=== PATIENT | female | born 1945 | race Caucasian/White ===

== ENCOUNTER → 2016-10-12 | Outpatient (CLI) | payer MEDICARE, OTHER ==
[2016-10-17 13:58] LABS: Alternaria alternata IgE <0.35 kU/L (<0.35); Asperg. fumagatus IgE <0.35 kU/L (<0.35); Asperg. fumagatus IgE Class CLASS 0; Cat Epith & Dander IgE <0.35 kU/L (<0.35); Cat Epith & Dander IgE Class CLASS 0; Clad herbarum IgE <0.35 kU/L (<0.35); Clad herbarum IgE Class CLASS 0; Com. Pigweed IgE 1.05 kU/L (<0.35); Com. Pigweed IgE Class CLASS II; Common Ragweed IgE Class CLASS II; Cow's Milk IgE Class CLASS 0; Dermato. farinae IgE 1.12 kU/L (<0.35); Dermato. farinae IgE Class CLASS II; House Dust (Greer) IgE 0.37 kU/L (<0.35); House Dust (Greer) IgE Class CLASS I; Maple (Box Elder) IgE 1.15 kU/L (<0.35); Maple (Box Elder) IgE Class CLASS II; Penicillium notatum IgE Class CLASS 0; Timothy Grass IgE 1.67 kU/L (<0.35); Timothy Grass IgE Class CLASS II
== END | disposition home or self-care (01) ==
LOC: LABWHC1 13:36
PROVIDERS: ATTEND Internal Medicine Sleep Medicine
DX: J45.909 Unspecified asthma, uncomplicated (principal); B44.9 Aspergillosis, unspecified
CPT/HCPCS: 36415; 82785; 86001; 86003; 86606; 86609

== ENCOUNTER 2016-11-21 16:37 | Inpatient (IN) | payer MEDICARE, OTHER ==
[2016-11-21] MEDS ORDERED: MAGNESIUM SULFATE-D5W PMX 1 GM in DEXTROSE/WATER 1 100ML.BAG IVPB STA (16:45)
[2016-11-21] MEDS ORDERED: DILTIAZEM 125 MG in SODIUM CHLORIDE 0.9% 100 ML IV ONE (16:47)
--- NOTE | 2016-11-21 16:52 | ED ---
SOB HPI - General Stated Complaint: NIGHAT Time Seen by Provider: 11/21/16 16:37 Source: patient, EMS, RN notes reviewed Mode of arrival: EMS - History of Present Illness Initial Comments: This is a 71-year-old female with a history of COPD who recently was put on oxygen 1 L/m who had the onset this morning around 10 AM he stated that a cough with phlegm that she states it started about 24 hours ago. She has some substernal chest pain 67/10 she was given aspirin nitroglycerin slight Medrol and albuterol and route by EMS she is feeling somewhat better. She also was noted to be in atrial fibrillation with a rapid ventricular response. She denies any fevers chills or sweats. MD Complaint: shortness of breath, cough, chest pain - Related Data Home Medications Medication Instructions Recorded Confirmed Albuterol Nebulized [Ventolin 2.5 mg INHALATION RT-Q4H PRN 06/28/16 11/21/16 Nebulized] Atorvastatin [Lipitor] 20 mg PO DAILY 06/28/16 11/21/16 Diltiazem Cd [Cardizem CD] 180 mg PO DAILY 06/28/16 11/21/16 Ergocalciferol (Vitamin D2) 50,000 unit PO JOINER 06/28/16 11/21/16 [Drisdol] Ferrous Sulfate [Iron (65 MG 325 mg PO TID 06/28/16 11/21/16 Elemental)] Fluticasone/Salmeterol [Advair 1 puff INHALATION RT-BID PRN 06/28/16 11/21/16 500-50 Diskus] Losartan [Cozaar] 50 mg PO DAILY 06/28/16 11/21/16 [place]-3 Acid Ethyl Esters [Lovaza] 1 gm PO DAILY 06/28/16 11/21/16 Omeprazole [PriLOSEC] 20 mg PO DAILY 06/28/16 11/21/16 Prochlorperazine [Compazine] 10 mg PO TID PRN 06/28/16 11/21/16 Solifenacin Succinate [Vesicare] 10 mg PO DAILY 06/28/16 11/21/16 Tiotropium 18 Mcg/Puff [Spiriva] 1 cap INHALATION RT-DAILY PRN 06/28/16 11/21/16 diphenhydrAMINE HCL [Benadryl] 25 - 50 mg PO Q6H PRN 06/28/16 11/21/16 metFORMIN HCL [Glucophage] 500 mg PO BID 06/28/16 11/21/16 Aspirin [Adult Low Dose Aspirin EC] 81 mg PO DAILY 11/21/16 11/21/16 Celecoxib [CeleBREX] 100 mg PO DAILY 11/21/16 11/21/16 Docusate Sodium [Dok] 100 mg PO BID 11/21/16 11/21/16 Allergies Allergy/AdvReac Type Severity Reaction Status Date / Time ciprofloxacin [From Cipro] Allergy Rash/Hives Verified 11/21/16 17:10 kiwi Allergy Rash/Hives Verified 11/21/16 17:10 Review of Systems ROS Statement: Those systems with pertinent positive or pertinent negative responses have been documented in the HPI. ROS Other: All systems not noted in ROS Statement are negative. Past Medical History Past Medical History: Atrial Fibrillation, Coronary Artery Disease (CAD), Cancer , COPD, Diabetes Mellitus, Eye Disorder, GERD/Reflux, Hypertension, Myocardial Infarction ([place]), Pneumonia, Sleep Apnea/CPAP/BIPAP Additional Past Medical History / Comment(s): DYSPHAGIA, [place] x3 with 2 stents. skin cancer to neck and right cheek removed. RT EYE MACULAR DEGENERATION MINIMAL VISION Last Myocardial Infarction Date:: 2009 History of Any Multi-Drug Resistant Organisms: None Reported Past Surgical History: Back Surgery, Bladder Surgery, Heart Catheterization With Stent, Hysterectomy Additional Past Surgical History / Comment(s): right hand carpal tunnel release. Past Anesthesia/Blood Transfusion Reactions: No Reported Reaction Date of Last Stent Placement:: 2009 Past Psychological History: Anxiety, Depression Smoking Status: Current every day smoker Past Alcohol Use History: None Reported Additional Past Alcohol Use History / Comment(s): TRYING TO QUIT, DOWN TO 4 CIGARETTES DAILY FROM 2PPD. STARTED SMOKING A TEEN Past Drug Use History: None Reported - Past Family History Mother Family Medical History: Cancer Additional Family Medical History / Comment(s): lung Brother(s) Family Medical History: Cancer Additional Family Medical History / Comment(s): lung Father Family Medical History: Congestive Heart Failure (CHF) General Exam - General Exam Comments Initial Comments: This is a well-developed well-nourished awake alert oriented x3 female General appearance: alert, anxious Head exam: Present: atraumatic, normocephalic, normal inspection Eye exam: Present: normal appearance, PERRL, EOMI. Absent: scleral icterus, conjunctival injection, periorbital swelling ENT exam: Present: normal exam, mucous membranes moist Neck exam: Present: normal inspection. Absent: tenderness, meningismus, lymphadenopathy Respiratory exam: Present: wheezes, chest wall tenderness (Some reproducible tenderness palpation along the lower sternal costal margin and xiphoid), decreased breath sounds. Absent: respiratory distress, rales, rhonchi, stridor Cardiovascular Exam: Present: tachycardia, irregular rhythm. Absent: systolic murmur, diastolic murmur, rubs, gallop, clicks GI/Abdominal exam: Present: soft, normal bowel sounds. Absent: distended, tenderness, guarding, rebound, rigid Extremities exam: Present: normal inspection, full ROM, normal capillary refill. Absent: tenderness, pedal edema, joint swelling, calf tenderness Back exam: Present: normal inspection Neurological exam: Present: alert, oriented X3, CN II-XII intact Psychiatric exam: Present: normal affect, normal mood Skin exam: Present: warm, dry, intact, normal color. Absent: rash Course Vital Signs 11/21/16 11/21/16 11/21/16 16:39 17:45 17:46 Temperature 100.5 F H Pulse Rate 114 H 155 H Pulse Rate [ 155 H Business Relationship Manager ] Respiratory 26 H 20 Rate Blood Pressure 135/77 114/53 O2 Sat by Pulse 96 95 Oximetry 11/21/16 18:18 Temperature 100.4 F H Pulse Rate 124 H Pulse Rate [ Business Relationship Manager ] Respiratory 20 Rate Blood Pressure 118/84 O2 Sat by Pulse 98 Oximetry - Reevaluation(s) Reevaluation #1: 11/21/16 18:37 Is feeling somewhat improved I did discuss the findings with her. Medical Decision Making - Medical Decision Making I did discuss findings with the patient also with Dr. Mcdonald. Patient be admitted she'll be placed on IV antibiotics IV fluids COPD treatment. - Lab Data Result diagrams: 11/21/16 17:00 11/21/16 17:00 Lab Results 11/21/16 11/21/16 11/21/16 Range/Units 17:00 17:00 17:00 WBC 28.0 H* (3.8-10.6) k/uL RBC 4.56 (3.80-5.40) m/uL Hgb 13.8 (11.4-16.0) gm/dL Hct 41.9 (34.0-46.0) % MCV 91.8 (80.0-100.0) fL MCH 30.2 (25.0-35.0) pg MCHC 32.9 (31.0-37.0) g/dL RDW 13.0 (11.5-15.5) % Plt Count 280 (150-450) k/uL Neutrophils % (Manual) 86.0 % Band Neutrophils % 2.5 % Lymphocytes % (Manual) 9.0 % Monocytes % (Manual) 1.5 % Eosinophils % (Manual) 0.5 % Basophils % (Manual) 0.5 % Neutrophils # (Manual) 24.8 H (1.3-7.7) k/uL Lymphocytes # (Manual) 2.5 (1.0-4.8) k/uL Monocytes # (Manual) 0.4 (0-1.0) k/uL Eosinophils # (Manual) 0.1 (0-0.7) k/uL Basophils # (Manual) 0.1 (0-0.2) k/uL Nucleated RBCs 0 (0-0) /100 WBC Manual Slide Review Performed Sodium 135 L (137-145) mmol/L Potassium 4.0 (3.5-5.1) mmol/L Chloride 98 (98-107) mmol/L Carbon Dioxide 24 (22-30) mmol/L Anion Gap 13 mmol/L BUN 15 (7-17) mg/dL Creatinine 0.46 L (0.52-1.04) mg/dL Est GFR (MDRD) Af Amer >60 (>60 ml/min/1.73 sqM) Est GFR (MDRD) Non-Af >60 (>60 ml/min/1.73 sqM) Glucose 157 H (74-99) mg/dL Calcium 9.4 (8.4-10.2) mg/dL Magnesium 1.6 (1.6-2.3) mg/dL Total Bilirubin 0.6 (0.2-1.3) mg/dL AST 21 (14-36) U/L ALT 37 (9-52) U/L Alkaline Phosphatase 87 (38-126) U/L Total Creatine Kinase 40 (30-135) U/L CK-MB (CK-2) 0.9 (0.0-2.4) ng/mL CK-MB (CK-2) Rel Index 2.3 Troponin I 0.043 H* (0.000-0.034) ng/mL NT-Pro-B Natriuret Pep pg/mL Total Protein 6.2 L (6.3-8.2) g/dL Albumin 3.4 L (3.5-5.0) g/dL 11/21/16 Range/Units 17:00 WBC (3.8-10.6) k/uL RBC (3.80-5.40) m/uL Hgb (11.4-16.0) gm/dL Hct (34.0-46.0) % MCV (80.0-100.0) fL MCH (25.0-35.0) pg MCHC (31.0-37.0) g/dL RDW (11.5-15.5) % Plt Count (150-450) k/uL Neutrophils % (Manual) % Band Neutrophils % % Lymphocytes % (Manual) % Monocytes % (Manual) % Eosinophils % (Manual) % Basophils % (Manual) % Neutrophils # (Manual) (1.3-7.7) k/uL Lymphocytes # (Manual) (1.0-4.8) k/uL Monocytes # (Manual) (0-1.0) k/uL Eosinophils # (Manual) (0-0.7) k/uL Basophils # (Manual) (0-0.2) k/uL Nucleated RBCs (0-0) /100 WBC Manual Slide Review Sodium (137-145) mmol/L Potassium (3.5-5.1) mmol/L Chloride (98-107) mmol/L Carbon Dioxide (22-30) mmol/L Anion Gap mmol/L BUN (7-17) mg/dL Creatinine (0.52-1.04) mg/dL Est GFR (MDRD) Af Amer (>60 ml/min/1.73 sqM) Est GFR (MDRD) Non-Af (>60 ml/min/1.73 sqM) Glucose (74-99) mg/dL Calcium (8.4-10.2) mg/dL Magnesium (1.6-2.3) mg/dL Total Bilirubin (0.2-1.3) mg/dL AST (14-36) U/L ALT (9-52) U/L Alkaline Phosphatase (38-126) U/L Total Creatine Kinase (30-135) U/L CK-MB (CK-2) (0.0-2.4) ng/mL CK-MB (CK-2) Rel Index Troponin I (0.000-0.034) ng/mL NT-Pro-B Natriuret Pep 891 pg/mL Total Protein (6.3-8.2) g/dL Albumin (3.5-5.0) g/dL - EKG Data -: EKG Interpreted by Me (EKG showed a atrial fibrillation rhythm rate was 73. Interval 160 QRS dura) - Radiology Data Radiology results: report reviewed (3 shows evidence of left lower lobe infiltrate.), image reviewed Critical Care Time Critical Care Time: Yes Critical Care Time: 37 minutes of critical care time which includes initial EMS evaluation with monitoring her radio call and discussed with paramedics history physical lab and x-ray evaluation the patient. Response to therapy treatment reevaluation. Discussion with the patient discussed with the patient's attending physician. Admission orders and documentation the above. Disposition Clinical Impression: Left lower lobe pneumonia, Acute exacerbation of chronic obstructive airways disease, Rapid atrial fibrillation, Febrile illness, acute Disposition: ADMITTED IP TO THIS HOSP Condition: Stable Referrals: Chuy Soliman MD [Primary Care Provider] - 1-2 days
[2016-11-21 17:19] LABS: CH 30.8; CHCM 33.7; HCT 41.9 % (34.0-46.0); HDW 2.41; HGB 13.8 gm/dL (11.4-16.0); Immature Gran Flag Slight; MCH 30.2 pg (25.0-35.0); MCHC 32.9 g/dL (31.0-37.0); MCV 91.8 fL (80.0-100.0); RBC 4.56 m/uL (3.80-5.40); WBC (Perox) 28.05
[2016-11-21 17:35] LABS: ALT 37 U/L (9-52); AST 21 U/L (14-36); Add Differential Manual Differential; Alkaline Phosphatase 87 U/L (38-126); Anion Gap 13 mmol/L; Blood Urea Nitrogen 15 mg/dL (7-17); Calcium 9.4 mg/dL (8.4-10.2); Carbon Dioxide 24 mmol/L (22-30); Chloride 98 mmol/L (98-107); Glucose 157 mg/dL (74-99); Magnesium 1.6 mg/dL (1.6-2.3); Non-African American GFR(MDRD) >60 (>60 ml/min/1.73 sqM); Sodium 135 mmol/L (137-145); Total Bilirubin 0.6 mg/dL (0.2-1.3); Total Protein 6.2 g/dL (6.3-8.2)
[2016-11-21 17:38] LABS: Band Neutrophils % 2.5 %; Manual Review Performed; Nucleated Red Blood Cells 0 /100 WBC (0-0); Total Cells Counted 200
--- NOTE | 2016-11-21 17:53 | XR ---
EXAMINATION TYPE: XR chest 2V DATE OF EXAM: 11/21/2016 5:40 PM COMPARISON: 08/05/2016 HISTORY: Chest pain TECHNIQUE: Frontal and lateral views of the chest are obtained. FINDINGS: There is some patchy consolidation in the lingula left upper lobe. The right lung is clear . There is no heart failure. Heart size is normal. There are no hilar masses. There are chest leads. IMPRESSION: There is lingula pneumonic consolidation consistent with pneumonia that is new compared to old chest x-ray. No heart failure.
[2016-11-21 18:02] LABS: Creatine Kinase MB 0.9 ng/mL (0.0-2.4)
[2016-11-21 18:05] LABS: Troponin I 0.043 ng/mL (0.000-0.034)
[2016-11-21] MEDS ORDERED: SODIUM CHLORIDE 0.9% 1,000 ML IV STA (18:06)
[2016-11-21 18:39] LABS: Partial Thromboplastin Time 52.4 sec (22.0-30.0); Prothrombin Time 123.6 sec (9.0-12.0)
[2016-11-21] MEDS ORDERED: AZITHROMYCIN 500 MG in SODIUM CHLORIDE 0.9% 250 ML IVPB STA (18:40)
[2016-11-21] MEDS ORDERED: PNEUMONIA PROTOCOL UTILIZED 1 EACH MISC PO PRN (18:40)
[2016-11-21] MEDS ORDERED: PROCHLORPERAZINE 10 MG TAB PO PRN (18:42)
[2016-11-21] MEDS ORDERED: TIOTROPIUM 18 MCG/PUFF INHALER INHALATION PRN (18:42)
[2016-11-21] MEDS ORDERED: MAGNESIUM SULFATE-D5W PMX 1 GM in DEXTROSE/WATER 1 100ML.BAG IVPB ONE (18:45)
[2016-11-21] MEDS: SODIUM CHLORIDE 0.9% 1,000 ML IV SCH (18:57)
[2016-11-21 19:08] LABS: INR >10.0 (<1.1)
[2016-11-21 19:40] LABS: Hemoglobin A1C 7.2 % (4.2-6.1)
[2016-11-21 20:51] LABS: Glucose,Whole Blood 426 mg/dL (75-99)
[2016-11-21] MEDS ORDERED: INSULIN LISPRO (humaLOG) 300 UNIT/3 ML VIAL SQ SCH (21:00)
[2016-11-21] MEDS ORDERED: metFORMIN 500 MG TAB PO SCH (21:00)
[2016-11-21 21:06] LABS: Glucose,Whole Blood 421 mg/dL (75-99)
[2016-11-21] MEDS: PHYTONADIONE ORAL 5 MG/5 ML ORAL.SYRG PO SCH (21:13)
[2016-11-21] MEDS: DOCUSATE 100 MG CAP PO SCH (21:14)
[2016-11-21] MEDS: FERROUS SULFATE 325 MG TAB PO SCH (21:14)
[2016-11-21] MEDS: traZODone HCL 50 MG TAB PO SCH (21:19)
[2016-11-21] MEDS: IPRATROPIUM-ALBUTEROL 3 ML NEB INHALATION SCH ×2 (21:36→23:23)
[2016-11-21] MEDS ORDERED: INSULIN REGULAR BOLUS (FROM DRIP BAG) IV PRN (21:41)
[2016-11-21] MEDS ORDERED: NALOXONE 0.4 MG/ML 1 ML VIAL IV PRN (21:54)
[2016-11-21 22:21] LABS: Glucose,Whole Blood 398 mg/dL (75-99)
[2016-11-21] MEDS: INSULIN REGULAR 100 UNIT in SODIUM CHLORIDE 0.9% 100 ML IV SCH (22:21)
[2016-11-21 22:53] LABS: Glucose,Whole Blood 330 mg/dL (75-99)
[2016-11-21 23:20] LABS: Glucose,Whole Blood 242 mg/dL (75-99)
[2016-11-21] MEDS: methylPREDNISolone SOD SUCCI 125 MG/2 ML VIAL IV SCH (23:39)
[2016-11-21 23:46] LABS: Glucose,Whole Blood 211 mg/dL (75-99)
[2016-11-22 01:03] LABS: Glucose,Whole Blood 133 mg/dL (75-99)
[2016-11-22 01:48] LABS: Hemoglobin A1C 7.2 % (4.2-6.1)
[2016-11-22 02:15] LABS: Glucose,Whole Blood 157 mg/dL (75-99)
[2016-11-22 03:18] LABS: Glucose,Whole Blood 265 mg/dL (75-99)
[2016-11-22] MEDS: IPRATROPIUM-ALBUTEROL 3 ML NEB INHALATION SCH ×3 (03:30→07:35)
[2016-11-22 03:32] LABS: Appearance,Urine Clear (Clear); Bilirubin,Urine Negative (Negative); Glucose,Urine (UA) 4+ (Negative); Ketones,Urine Negative (Negative); Leukocyte Esterase,Urine Negative (Negative); Nitrite,Urine Negative (Negative); Particle Count 659; Protein,Urine Negative (Negative); RBC,Urine <1 /hpf (0-5); Specific Gravity,Urine 1.009 (1.001-1.035); Squamous Epithelial Cell,Urine <1 /hpf (0-4); UA Billing (MACRO vs. MICRO) MICRO; Urobilinogen,Urine <2.0 mg/dL (<2.0); WBC,Urine 1 /hpf (0-5)
[2016-11-22 04:15] LABS: Glucose,Whole Blood 269 mg/dL (75-99)
[2016-11-22 04:38] LABS: Basophils % (A) 0 %; CH 30.8; CHCM 32.2; Eosinophils % (A) 0 %; HCT 39.1 % (34.0-46.0); HDW 2.33; HGB 12.6 gm/dL (11.4-16.0); Luc # (Auto) 0.06; Luc % (Auto) 0; Lymphocytes # (A) 0.6 k/uL (1.0-4.8); Lymphocytes % (A) 2 %; MCH 30.9 pg (25.0-35.0); MCHC 32.1 g/dL (31.0-37.0); MCV 96.1 fL (80.0-100.0); Mean Platelet Volume 7.6; Monocytes # (A) 0.4 k/uL (0-1.0); Monocytes % (A) 1 %; Neutrophils # (A) 27.7 k/uL (1.3-7.7); Neutrophils % (A) 96 %; RBC 4.07 m/uL (3.80-5.40); RDW 12.8 % (11.5-15.5); WBC (Perox) 30.94
[2016-11-22 04:47] LABS: WBC 28.9 k/uL (3.8-10.6)
[2016-11-22 04:57] LABS: Anion Gap 11 mmol/L; Blood Urea Nitrogen 18 mg/dL (7-17); Calcium 8.8 mg/dL (8.4-10.2); Carbon Dioxide 21 mmol/L (22-30); Chloride 103 mmol/L (98-107); Glucose 226 mg/dL (74-99); Magnesium 2.2 mg/dL (1.6-2.3); Non-African American GFR(MDRD) >60 (>60 ml/min/1.73 sqM); Phosphorous 3.1 mg/dL (2.5-4.5); Potassium 4.2 mmol/L (3.5-5.1); Sodium 135 mmol/L (137-145)
[2016-11-22 05:02] LABS: Partial Thromboplastin Time 54.7 sec (22.0-30.0)
[2016-11-22] MEDS: methylPREDNISolone SOD SUCCI 125 MG/2 ML VIAL IV SCH ×3 (05:12→18:35)
[2016-11-22 05:14] LABS: Glucose,Whole Blood 180 mg/dL (75-99)
[2016-11-22 05:16] LABS: INR 6.5 (<1.1)
[2016-11-22 06:09] LABS: Glucose,Whole Blood 159 mg/dL (75-99)
[2016-11-22 07:11] LABS: Glucose,Whole Blood 204 mg/dL (75-99)
--- NOTE | 2016-11-22 07:30 | XR ---
EXAMINATION TYPE: XR chest 1V DATE OF EXAM: 11/22/2016 6:39 AM HISTORY: Difficulty breathing. REFERENCE: Previous study dated 11/21/2016. FINDINGS: There continues to be a lingular infiltrate, unchanged from previous. There is developing s ome right basilar airspace disease. Heart size is obscured. No definite pleural fluid is seen. IMPRESSION: 1. CONTINUING LEFT LINGULAR AIRSPACE DISEASE. 2. DEVELOPING RIGHT BASILAR AIRSPACE DISEASE.
[2016-11-22] MEDS ORDERED: LEVALBUTEROL NEB (CONC) 1.25 MG/0.5 ML AMP INHALATION STA (07:35)
[2016-11-22] MEDS ORDERED: IPRATROPIUM 0.5 MG/2.5 ML NEBU INHALATION STA (07:35)
[2016-11-22 07:58] LABS: Glucose,Whole Blood 227 mg/dL (75-99)
[2016-11-22] MEDS ORDERED: ASPIRIN 81 MG CHEW PO SCH (09:00)
[2016-11-22] MEDS ORDERED: NON-FORMULARY DRUG (Omega-3 Acid Ethyl Esters [Lovaza] 1 GM) PO SCH (09:00)
[2016-11-22] MEDS ORDERED: DILTIAZEM CD 180 MG CAP.ER.24H PO SCH (09:00)
[2016-11-22] MEDS ORDERED: WARFARIN 5 MG TAB PO SCH (09:00)
[2016-11-22] MEDS: LOSARTAN 50 MG TAB PO SCH (09:05)
[2016-11-22] MEDS: FUROSEMIDE 40 MG TAB PO SCH (09:05)
[2016-11-22] MEDS: MELOXICAM 7.5 MG TAB PO SCH (09:06)
[2016-11-22] MEDS: DOCUSATE 100 MG CAP PO SCH ×2 (09:09→21:56)
[2016-11-22] MEDS: FERROUS SULFATE 325 MG TAB PO SCH ×3 (09:09→21:56)
[2016-11-22] MEDS: PANTOPRAZOLE 40 MG TABLET PO SCH (09:09)
[2016-11-22] MEDS: DILTIAZEM 125 MG in SODIUM CHLORIDE 0.9% 100 ML IV SCH ×2 (09:09→17:06)
[2016-11-22] MEDS: ATORVASTATIN 20 MG TAB PO SCH (09:09)
[2016-11-22] MEDS: OXYBUTYNIN XL 5 MG TAB.ER.24 PO SCH (09:10)
[2016-11-22 09:12] LABS: Glucose,Whole Blood 305 mg/dL (75-99)
[2016-11-22] MEDS: INSULIN REGULAR 100 UNIT in SODIUM CHLORIDE 0.9% 100 ML IV SCH (09:12)
[2016-11-22] MEDS: PHYTONADIONE ORAL 5 MG/5 ML ORAL.SYRG PO SCH (09:42)
[2016-11-22] MEDS: ALPRAZolam 0.25 MG TAB PO PRN ×2 (09:52→18:40)
[2016-11-22 09:58] LABS: Glucose,Whole Blood 244 mg/dL (75-99)
[2016-11-22 10:59] LABS: Glucose,Whole Blood 209 mg/dL (75-99)
[2016-11-22] MEDS: DIGOXIN 125 MCG TAB PO SCH (11:35)
[2016-11-22 12:17] LABS: Glucose,Whole Blood 154 mg/dL (75-99)
--- NOTE | 2016-11-22 12:47 | CONS ---
DATE OF CONSULTATION: Mrs. Jorgensen is a 71-year-old female with known history of coronary artery disease, history of atrial fibrillation, severe chronic obstructive lung disease, end stage, who presented with symptoms of progressive dyspnea, cough and cardiac consultation was requested because of the arrhythmia. Patient had a prior history of stenting done in [place] and in [facility] a few years ago and about a year and a half or so ago underwent cardioversion for atrial fibrillation. She has been complaining of progressive dyspnea and cough with exacerbation of COPD. She is on home O2. On presentation, she was tachycardic. Her initial EKG raised the possible of atrial fibrillation versus multifocal atrial tachycardia now on the telemetry she looks more like atrial fibrillation with rapid ventricular response. She has chest discomfort. This was with deep breathing and coughing. She has no dizziness. No syncope. She feels some palpitation. She has occasional peripheral edema. Her coronary risk factors are remarkable for smoking, which she is trying to stop. She is hypertensive, hyperlipidemic and diabetic. Her medications at home include Coumadin, Lipitor, furosemide 40 mg daily, metformin 500 mg twice a day, Spiriva, VESIcare, Prilosec, Lovaza, Cozaar 50 mg daily, Cardizem CD 180 mg daily, Lipitor 20 mg daily, aspirin 20 mg daily, Ventolin and Celebrex. REVIEW OF SYSTEMS: RESPIRATORY SYSTEM: She has severe chronic obstructive lung disease on home O2 with severe limitation in her activity. GI SYSTEM: No recent GI bleeding. No peptic ulcer disease. SYSTEM: No dysuria or hematuria. NERVOUS SYSTEM: No stroke or seizure. PHYSICAL EXAMINATION: She is a 71-year-old female, moderately dyspneic, alert, oriented. Blood pressure running in the 100s to 130 with the rate in between the 90s in the 130s. HEAD: Normocephalic. EYES: Sclerae anicteric. NECK: With severe decrease in exchange bilaterally. HEART: Tachycardic, irregularly, irregular. S1, S2. No S3 with systolic murmur. No diastolic murmur. No rub. ABDOMEN: Soft, nontender, positive bowel sounds. No organomegaly. EXTREMITIES: No edema. Intact distal pulses. Lab data revealed initially INR of above 10 on presentation. Her plasma lactic acid was 2.9. Her BUN and creatinine 15 and 0.46. Troponin 0.043. NT-proBNP of 891 and a white blood cell of 28,000. Today, her INR is down to 6.5. Hemoglobin 12.6, white blood cell 28.9. BUN and creatinine 18 and 0.6. Her chest x-ray is consistent with left lingular airspace disease and right basilar airspace disease. Her EKG revealed atrial fibrillation versus multifocal atrial tachycardia with right bundle branch block and nonspecific ST-T wave changes. IMPRESSION: 1. Exacerbation of chronic obstructive pulmonary disease with possible pneumonia in a patient with known history of severe chronic obstructive lung disease. 2. Recurrent atrial fibrillation in a patient with prior history of cardioversion. Full details of that are not available to me. On the initial EKG, it appears that she may have had multifocal atrial tachycardia, but the multifocal atrial tachycardia and the atrial fibrillation, both of them are quite common in a setting of severe chronic obstructive lung disease. 3. Prior history of coronary artery disease with prior stenting, appears to be stable. 4. Episode of chest discomfort appears to be respiratory in origin. 5. History of hypertension. 6. Hyperlipidemia. 7. Diabetes mellitus. RECOMMENDATIONS: From the cardiac standpoint, I will continue present therapy. Will hold the Coumadin until she becomes therapeutic and then start the Coumadin again. It is possible that the elevation could be related ( ) related to lung disease. Will continue on IV Cardizem for another 24 hours, switch her back to oral. I will add digoxin to her regimen. Because of her severe bronchospastic status and lung disease, I do not feel that beta kelly ( ) option at this time. I will try to obtain the prior workup. The prognosis remains guarded because of her severe lung status. Thank you for this consult. We will follow with you.
[2016-11-22 12:57] LABS: Glucose,Whole Blood 135 mg/dL (75-99)
--- NOTE | 2016-11-22 13:19 | ECHOF ---
Referral Reason:atrial fibrillation MEASUREMENTS -------- HEIGHT: 152.4 cm WEIGHT: 83.9 kg BP: 123/69 RVIDd: 2.8 cm (< 3.3) IVSd: 1.1 cm (0.6 - 1.1) LVIDd: 5.2 cm (3.9 - 5.3) LVPWd: 1.3 cm (0.6 - 1.1) IVSs: 1.8 cm LVIDs: 3.4 cm LVPWs: 1.8 cm LA Diam: 4.0 cm (2.7 - 3.8) LAESV Index (A-L): 38.34 ml/m Ao Diam: 2.7 cm (2.0 - 3.7) LA Diam: 4.6 cm (2.7 - 3.8) MV EXCURSION: 19.176 mm (> 18.000) MV EF SLOPE: 112 mm/s (70 - 150) EPSS: 1.1 cm RAP: 5.00 mmHg RVSP: 29.49 mmHg FINDINGS -------- Undetermined rhythm. This was a technically adequate study. There is mild concentric left ventricular hypertrophy. Overall left ventricular systolic function is low-normal with, an EF between 50 - 55 %. The right ventricle is normal in size. LA is moderately dilated 34-39 ml/m2 The right atrial size is normal. There is mild aortic valve sclerosis. There is no evidence of aortic regurgitation. Mild mitral annular calcification present. Mild mitral regurgitation is present. Mild tricuspid regurgitation present. There is no evidence of pulmonary hypertension. The right ventricular systolic pressure, as measured by Doppler, is 29.49mmHg. There is no pulmonic regurgitation present. The aortic root size is normal. There is no pericardial effusion. CONCLUSIONS -------- 1. There is mild concentric left ventricular hypertrophy. 2. There is no pulmonic regurgitation present. 3. The aortic root size is normal. 4. There is no pericardial effusion. 5. Overall left ventricular systolic function is low-normal with, an EF between 50 - 55 %. 6. LA is moderately dilated 34-39 ml/m2 7. There is mild aortic valve sclerosis. 8. Mild mitral annular calcification present. 9. Mild mitral regurgitation is present. 10. Mild tricuspid regurgitation present. 11. There is no evidence of pulmonary hypertension. 12. The right ventricular systolic pressure, as measured by Doppler, is 29.49mmHg. PRODUCT CONTROLLER: Lilliana Palmer RDCS
[2016-11-22] MEDS: IPRATROPIUM 0.5 MG/2.5 ML NEBU INHALATION SCH ×2 (13:54→19:48)
[2016-11-22] MEDS: LEVALBUTEROL NEB (CONC) 1.25 MG/0.5 ML AMP INHALATION SCH ×2 (13:54→19:49)
[2016-11-22 14:31] LABS: Glucose,Whole Blood 212 mg/dL (75-99)
[2016-11-22 15:02] LABS: Glucose,Whole Blood 235 mg/dL (75-99)
[2016-11-22 16:05] LABS: Glucose,Whole Blood 187 mg/dL (75-99)
--- NOTE | 2016-11-22 16:56 | P.CNPUL ---
History of Present Illness Consult date: 11/22/16 Reason for consult: pneumonia History of present illness: 71-year-old female patient with advanced COPD, chronic hypoxic respiratory failure, was seen Dr. Galvan in the past and currently is interested in switching services. The patient is also known to have coronary artery disease, chronic atrial fibrillation and she is morbidly obese and she has been treated for hypertension hyperlipidemia and she has been on long-term anticoagulation for chronic atrial fibrillation. The patient presented yesterday to the emergency department because of worsening shortness of breath. She was having increased cough chest congestion and wheezing. A chest x-ray was done and showed a lingular consolidation/ pneumonia. The patient was also found to be in atrial fibrillation with rapid ventricle response and she was also toxic on her Coumadin. As such, the patient was admitted to the intensive care unit where she was started on a broad -spectrum antibiotics. She is currently on a Cardizem drip for rate control and Cardizem drip is running at 50 mg an hour. She was given a dose of digoxin by cardiology to achieve a better rate control. She was given vitamin K for her coagulopathy and subsequent INR is down to 5. No signs of any acute bleeding at this point. No change in mental status. She was having some chest congestion and chest discomfort over the left anterior chest area which corresponds to her lingular pneumonia. No swelling in lower extremities. No nausea. No vomiting. No abdominal pain. No diarrhea. No other complaints otherwise for now. Review of Systems further review of system was done and the positive findings are almost above the history of present illness Past Medical History Past Medical History: Atrial Fibrillation, Coronary Artery Disease (CAD), Cancer , COPD, Diabetes Mellitus, Eye Disorder, GERD/Reflux, Hyperlipidemia, Hypertension, Myocardial Infarction (NM), Pneumonia, Sleep Apnea/CPAP/BIPAP Additional Past Medical History / Comment(s): Morbid obesity, chronic hypoxic respiratory failure, COPD, obstructive sleep apnea noncompliant to CPAP therapy , chronic atrial fibrillation and the patient has failed cardioversion in the past and she has been maintained on long-term anticoagulation she has also episodes of multifocal atrial tachycardia, previous coronary stenting regarding coronary artery disease, hypertension, hyperlipidemia, diabetes mellitus, macular degeneration, dysphagia, nicotine addiction/smoking the patient has been trying to quit smoking by utilization of Chantix, skin cancer involving the neck and the right cheek that was resected. Last Myocardial Infarction Date:: 2009 History of Any Multi-Drug Resistant Organisms: None Reported Past Surgical History: Back Surgery, Bladder Surgery, Heart Catheterization With Stent, Hysterectomy Additional Past Surgical History / Comment(s): right hand carpal tunnel release , aug 2016 had a growth removed from her "vocal cords" Past Anesthesia/Blood Transfusion Reactions: No Reported Reaction Date of Last Stent Placement:: 2009 Past Psychological History: Anxiety, Depression Smoking Status: Current every day smoker Past Alcohol Use History: None Reported Additional Past Alcohol Use History / Comment(s): TRYING TO QUIT, DOWN TO 4 CIGARETTES DAILY FROM 2PPD. STARTED SMOKING A TEEN Past Drug Use History: None Reported - Past Family History Mother Family Medical History: Cancer Additional Family Medical History / Comment(s): lung Brother(s) Family Medical History: Cancer Additional Family Medical History / Comment(s): lung Father Family Medical History: Congestive Heart Failure (CHF) Medications and Allergies Home Medications Medication Instructions Recorded Confirmed Type Albuterol Nebulized [Ventolin 2.5 mg INHALATION RT-Q4H PRN 06/28/16 11/21/16 History Nebulized] Atorvastatin [Lipitor] 20 mg PO DAILY 06/28/16 11/21/16 History Diltiazem Cd [Cardizem CD] 180 mg PO DAILY 06/28/16 11/21/16 History Ergocalciferol (Vitamin D2) 50,000 unit PO JOINER 06/28/16 11/21/16 History [Drisdol] Ferrous Sulfate [Iron (65 MG 325 mg PO TID 06/28/16 11/21/16 History Elemental)] Fluticasone/Salmeterol [Advair 1 puff INHALATION RT-BID PRN 06/28/16 11/21/16 History 500-50 Diskus] Losartan [Cozaar] 50 mg PO DAILY 06/28/16 11/21/16 History [place]-3 Acid Ethyl Esters [Lovaza] 1 gm PO DAILY 06/28/16 11/21/16 History Omeprazole [PriLOSEC] 20 mg PO DAILY 06/28/16 11/21/16 History Prochlorperazine [Compazine] 10 mg PO TID PRN 06/28/16 11/21/16 History Solifenacin Succinate [Vesicare] 10 mg PO DAILY 06/28/16 11/21/16 History Tiotropium 18 Mcg/Puff [Spiriva] 1 cap INHALATION RT-DAILY PRN 06/28/16 History diphenhydrAMINE HCL [Benadryl] 25 - 50 mg PO Q6H PRN 06/28/16 11/21/16 History metFORMIN HCL [Glucophage] 500 mg PO BID 06/28/16 11/21/16 History ALPRAZolam [Xanax] 0.25 mg PO TID PRN 11/21/16 11/21/16 History Aspirin [Adult Low Dose Aspirin EC] 81 mg PO DAILY 11/21/16 11/21/16 History Atorvastatin [Lipitor] 10 mg PO DAILY 11/21/16 11/21/16 History Celecoxib [CeleBREX] 100 mg PO DAILY 11/21/16 11/21/16 History Docusate Sodium [Dok] 100 mg PO BID 11/21/16 11/21/16 History Furosemide [Lasix] 40 mg PO DAILY 11/21/16 11/21/16 History Warfarin [Coumadin] 5 mg PO DAILY 11/21/16 11/21/16 History Allergies Allergy/AdvReac Type Severity Reaction Status Date / Time ciprofloxacin [From Cipro] Allergy Rash/Hives Verified 11/21/16 17:10 kiwi Allergy Rash/Hives Verified 11/21/16 17:10 Physical Exam Vitals: Vital Signs Temp Pulse Resp BP Pulse Ox 11/22/16 15:00 95 106/75 95 11/22/16 14:07 112 H 11/22/16 14:00 106 H 45 H 146/90 92 L 11/22/16 13:54 105 H 11/22/16 13:00 108 H 23 128/78 95 11/22/16 12:00 99.3 F 102 H 22 144/71 95 11/22/16 11:00 99 25 H 104/63 93 L 11/22/16 10:00 109 H 21 135/82 95 11/22/16 09:00 126 H 20 121/76 96 11/22/16 08:41 30 H 11/22/16 08:00 99.4 F 156 H 30 H 123/69 95 11/22/16 07:51 114 H 11/22/16 07:40 123 H 11/22/16 07:00 144 H 17 86/67 94 L 11/22/16 06:00 99 20 101/59 98 11/22/16 05:00 133 H 20 92/52 97 11/22/16 04:00 98.2 F 128 H 29 H 93/69 95 11/22/16 03:40 109 H 11/22/16 03:30 98 11/22/16 03:00 131 H 29 H 98/60 96 11/22/16 02:00 112 H 20 90/61 95 11/22/16 01:00 141 H 26 H 89/65 95 11/22/16 00:00 148 H 28 H 106/54 96 11/21/16 23:31 108 H 11/21/16 23:23 99 11/21/16 23:00 88 22 90/48 95 11/21/16 22:00 87 27 H 137/67 96 11/21/16 21:49 98 11/21/16 21:36 92 11/21/16 21:10 106 H 22 130/80 97 11/21/16 21:00 133 H 21 130/80 97 11/21/16 20:50 96 36 H 130/80 95 11/21/16 19:49 113 H 20 100/67 98 11/21/16 19:38 99.1 F 127 H 22 114/76 96 Intake and Output 11/22/16 11/22/16 11/22/16 06:59 14:59 22:59 Intake Total 269.110 214.018 20 Output Total 250 1050 0 Balance 19.110 -835.982 20 Intake: IV 175 160 20 Diltiazem 125 mg In 15 Sodium Chloride 0.9% 100 ml @ 10 MG/HR 10 mls/hr IV .[id number] ONE Rx#: [id number] Sodium Chloride 0.9% 1, 160 160 20 000 ml @ 20 mls/hr IV . Q24H [facility] Rx#:[id number] Intake, IV Titration 94.110 54.018 Amount Diltiazem 125 mg In 41 Sodium Chloride 0.9% 100 ml @ 10 MG/HR 10 mls/hr IV .[id number] ONE Rx#: [id number] Insulin Regular 100 unit 53.110 54.018 In Sodium Chloride 0.9% 100 ml @ Per Protocol IV .Q0M JULIÁN Rx#:[id number] Output: Urine 250 1050 0 Other: # Voids 1 1 # Bowel Movements 1 Weight 84.2 kg Head exam was generally normal. There was no scleral icterus or corneal arcus. Mucous membranes were moist.neck is short and supple and there is significant crowding of the posterior pharynx. There is no with or neck masses. Lungs sounds are diminished bilaterally along with that there is some few scattered expiratory wheezes with crackles can be. Over the left anterior chest area. Heart sounds are irregular, positive S1-S2 and there is no significant murmurs appreciated. Overall heart sounds are distant. Abdomen is slightly distended soft and orders cannot be accurately palpated. There is no direct tenderness or rebound tenderness or guarding.Examination of the extremities revealed easily palpable radial, femoral and pedal pulses. There was no cyanosis, clubbing or edema. Results - Laboratory Findings CBC and BMP: 11/22/16 04:25 11/22/16 04:25 PT/INR, D-dimer PT 66.0 sec (9.0-12.0) H 11/22/16 04:25 INR 6.5 (<1.1) H* 11/22/16 04:25 Abnormal lab findings: Abnormal Labs 11/21/16 11/21/16 11/21/16 20:49 21:04 22:19 WBC Neutrophils # Lymphocytes # PT INR APTT Sodium Carbon Dioxide BUN Glucose POC Glucose (mg/dL) 426 H 421 H Hemoglobin A1c Plasma Lactic Acid Eddie 2.2 H* TSH Urine Glucose (UA) Urine Blood 11/21/16 11/21/16 11/21/16 22:19 22:19 22:52 WBC Neutrophils # Lymphocytes # PT INR APTT Sodium Carbon Dioxide BUN Glucose POC Glucose (mg/dL) 398 H 330 H Hemoglobin A1c 7.2 H Plasma Lactic Acid Eddie TSH Urine Glucose (UA) Urine Blood 11/21/16 11/21/16 11/22/16 23:19 23:44 01:02 WBC Neutrophils # Lymphocytes # PT INR APTT Sodium Carbon Dioxide BUN Glucose POC Glucose (mg/dL) 242 H 211 H 133 H Hemoglobin A1c Plasma Lactic Acid Eddie TSH Urine Glucose (UA) Urine Blood 11/22/16 11/22/16 11/22/16 02:14 02:50 03:17 WBC Neutrophils # Lymphocytes # PT INR APTT Sodium Carbon Dioxide BUN Glucose POC Glucose (mg/dL) 157 H 265 H Hemoglobin A1c Plasma Lactic Acid Dedie TSH Urine Glucose (UA) 4+ H Urine Blood Trace H 11/22/16 11/22/16 11/22/16 04:13 04:25 04:25 WBC 28.9 H* Neutrophils # 27.7 H Lymphocytes # 0.6 L PT 66.0 H INR 6.5 H* APTT 54.7 H Sodium Carbon Dioxide BUN Glucose POC Glucose (mg/dL) 269 H Hemoglobin A1c Plasma Lactic Acid Eddie TSH Urine Glucose (UA) Urine Blood 11/22/16 11/22/16 11/22/16 04:25 04:25 05:11 WBC Neutrophils # Lymphocytes # PT INR APTT Sodium 135 L Carbon Dioxide 21 L BUN 18 H Glucose 226 H POC Glucose (mg/dL) 180 H Hemoglobin A1c Plasma Lactic Acid Eddie TSH 0.239 L Urine Glucose (UA) Urine Blood 11/22/16 11/22/16 11/22/16 06:07 07:09 07:56 WBC Neutrophils # Lymphocytes # PT INR APTT Sodium Carbon Dioxide BUN Glucose POC Glucose (mg/dL) 159 H 204 H 227 H Hemoglobin A1c Plasma Lactic Acid Eddie TSH Urine Glucose (UA) Urine Blood 11/22/16 11/22/16 11/22/16 09:10 09:57 10:58 WBC Neutrophils # Lymphocytes # PT INR APTT Sodium Carbon Dioxide BUN Glucose POC Glucose (mg/dL) 305 H 244 H 209 H Hemoglobin A1c Plasma Lactic Acid Eddie TSH Urine Glucose (UA) Urine Blood 11/22/16 11/22/16 11/22/16 12:15 12:55 14:19 WBC Neutrophils # Lymphocytes # PT INR APTT Sodium Carbon Dioxide BUN Glucose POC Glucose (mg/dL) 154 H 135 H 212 H Hemoglobin A1c Plasma Lactic Acid Eddie TSH Urine Glucose (UA) Urine Blood 11/22/16 11/22/16 15:00 16:03 WBC Neutrophils # Lymphocytes # PT INR APTT Sodium Carbon Dioxide BUN Glucose POC Glucose (mg/dL) 235 H 187 H Hemoglobin A1c Plasma Lactic Acid Eddie TSH Urine Glucose (UA) Urine Blood - Diagnostic Findings Chest x-ray: image reviewed Assessment and Plan Plan: Impression 1 acute community-acquired lingular pneumonia with extensive consolidation of the lingular segment of the left lung 2 acute COPD exacerbation secondary to above, the patient has advanced COPD at baseline and she is demented on a combination of Advair and Spiriva. 3 chronic hypoxic respiratory failure 4 leukocytosis secondary to pneumonia 5 chronic atrial fibrillation with rapid ventricular response, exacerbated by underlying pneumonia 6 Coumadin toxicity, being reversed with vitamin K 7 coronary artery disease with previous coronary intervention and stenting currently stable 8 diabetes mellitus 9 hypertension 10 hyperlipidemia 11 obstructive sleep apnea noncompliant to CPAP therapy 12 skin cancer resected 13 nicotine addiction/smoking. 14 macular degeneration Plan Cover the patient with Rocephin and Zithromax. Obtain sputum Gram stain and culture. Obtain blood culture. Monitor the chest x-ray findings and daily chest will be done. Cardiology to treat the patient's atrial fibrillation the patient will be maintained on Cardizem drip for now. Continue fluid resuscitation. Continue IV Solu-Medrol for COPD exacerbation in conjunction with bronchodilators and put the patient on insulin drip for tighter blood sugar control. May need to use BiPAP if there is further decompensation of the respirator status. Smoking cessation counseling was done. We'll continue to follow make further recommendations as follows.
[2016-11-22 17:03] LABS: Glucose,Whole Blood 203 mg/dL (75-99)
[2016-11-22 18:21] LABS: Glucose,Whole Blood 198 mg/dL (75-99)
[2016-11-22] MEDS: AZITHROMYCIN 500 MG TAB PO SCH (18:35)
[2016-11-22] MEDS: SODIUM CHLORIDE 0.9% 1,000 ML IV SCH (18:36)
[2016-11-22 20:13] LABS: Glucose,Whole Blood 176 mg/dL (75-99)
[2016-11-22 21:14] LABS: Glucose,Whole Blood 177 mg/dL (75-99)
[2016-11-22] MEDS: traZODone HCL 50 MG TAB PO SCH (21:56)
[2016-11-22 22:08] LABS: Glucose,Whole Blood 186 mg/dL (75-99)
[2016-11-22 23:11] LABS: Glucose,Whole Blood 234 mg/dL (75-99)
[2016-11-23] MEDS: methylPREDNISolone SOD SUCCI 125 MG/2 ML VIAL IV SCH ×5 (00:16→23:01)
[2016-11-23 00:17] LABS: Glucose,Whole Blood 190 mg/dL (75-99)
[2016-11-23] MEDS: INSULIN REGULAR 100 UNIT in SODIUM CHLORIDE 0.9% 100 ML IV SCH ×2 (01:07→14:58)
[2016-11-23] MEDS: DILTIAZEM 125 MG in SODIUM CHLORIDE 0.9% 100 ML IV SCH ×4 (01:08→22:58)
[2016-11-23 01:12] LABS: Glucose,Whole Blood 167 mg/dL (75-99)
[2016-11-23] MEDS: IPRATROPIUM-ALBUTEROL 3 ML NEB INHALATION PRN (02:12)
[2016-11-23 02:14] LABS: Glucose,Whole Blood 154 mg/dL (75-99)
[2016-11-23 03:12] LABS: Glucose,Whole Blood 160 mg/dL (75-99)
[2016-11-23 04:18] LABS: Glucose,Whole Blood 183 mg/dL (75-99)
[2016-11-23 05:16] LABS: Basophils % (A) 0 %; Eosinophils % (A) 0 %; HCT 38.6 % (34.0-46.0); HGB 12.3 gm/dL (11.4-16.0); Luc # (Auto) 0.08; Luc % (Auto) 0; Lymphocytes # (A) 0.5 k/uL (1.0-4.8); Lymphocytes % (A) 2 %; MCHC 31.8 g/dL (31.0-37.0); MCV 94.4 fL (80.0-100.0); Mean Platelet Volume 7.1; Monocytes # (A) 0.5 k/uL (0-1.0); Monocytes % (A) 2 %; Neutrophils # (A) 26.6 k/uL (1.3-7.7); Neutrophils % (A) 96 %; RBC 4.09 m/uL (3.80-5.40); RDW 12.9 % (11.5-15.5); WBC (Perox) 28.79
[2016-11-23 05:21] LABS: INR 1.4 (<1.1); Prothrombin Time 13.6 sec (9.0-12.0)
[2016-11-23 05:30] LABS: Glucose,Whole Blood 139 mg/dL (75-99)
[2016-11-23 05:31] LABS: WBC 27.7 k/uL (3.8-10.6)
[2016-11-23 05:42] LABS: Anion Gap 10 mmol/L; Blood Urea Nitrogen 18 mg/dL (7-17); Calcium 9.6 mg/dL (8.4-10.2); Carbon Dioxide 21 mmol/L (22-30); Chloride 105 mmol/L (98-107); Glucose 172 mg/dL (74-99); Magnesium 2.2 mg/dL (1.6-2.3); Non-African American GFR(MDRD) >60 (>60 ml/min/1.73 sqM); Potassium 4.8 mmol/L (3.5-5.1); Sodium 136 mmol/L (137-145)
--- NOTE | 2016-11-23 06:49 | XR ---
EXAMINATION TYPE: XR chest 1V portable DATE OF EXAM: 11/23/2016 6:36 AM HISTORY: shortness of breath. REFERENCE: Previous study dated 11/22/2016. FINDINGS: The heart is enlarged. There continues to be a left lingular infiltrate as well as some air space disease the right lung base. Pleural spaces are clear. IMPRESSION: NO SIGNIFICANT INTERVAL CHANGE IN APPEARANCE OF THE CHEST IN COMPARISON WITH THE PREVIOUS EXAMINATION .
[2016-11-23] MEDS: ALPRAZolam 0.25 MG TAB PO PRN (07:41)
[2016-11-23] MEDS: IPRATROPIUM 0.5 MG/2.5 ML NEBU INHALATION SCH ×3 (07:43→18:51)
[2016-11-23] MEDS: LEVALBUTEROL NEB (CONC) 1.25 MG/0.5 ML AMP INHALATION SCH ×3 (07:43→18:51)
[2016-11-23 07:46] LABS: Glucose,Whole Blood 220 mg/dL (75-99)
[2016-11-23] MEDS ORDERED: FUROSEMIDE 10 MG/ML 4 ML VIAL IV STA (07:51)
[2016-11-23] MEDS: ATORVASTATIN 20 MG TAB PO SCH (08:38)
[2016-11-23] MEDS: LOSARTAN 50 MG TAB PO SCH (08:38)
[2016-11-23] MEDS: FERROUS SULFATE 325 MG TAB PO SCH ×3 (08:38→21:00)
[2016-11-23] MEDS: DIGOXIN 125 MCG TAB PO SCH (08:39)
[2016-11-23] MEDS: METOPROLOL TARTRATE 25 MG TAB PO SCH ×2 (08:39→20:57)
[2016-11-23] MEDS: PANTOPRAZOLE 40 MG TABLET PO SCH (08:39)
[2016-11-23] MEDS: OXYBUTYNIN XL 5 MG TAB.ER.24 PO SCH (08:39)
[2016-11-23] MEDS: DOCUSATE 100 MG CAP PO SCH ×2 (08:41→20:33)
[2016-11-23] MEDS: MELOXICAM 7.5 MG TAB PO SCH (08:44)
[2016-11-23] MEDS: FUROSEMIDE 40 MG TAB PO SCH (08:49)
[2016-11-23 09:10] LABS: Glucose,Whole Blood 276 mg/dL (75-99)
--- NOTE | 2016-11-23 09:38 | PN ---
Mrs. Jorgensen is a 71-year-old female with known history of severe chronic obstructive lung disease, history of coronary artery disease, status post stenting of the right coronary artery in 2007, underwent repeat cardiac catheterization at [facility] in 2010, revealed no evidence of significant restenosis, history of atrial fibrillation status post cardioversion, who presented with worsening dyspnea and evidence of exacerbation of COPD and pneumonia. She is in atrial fibrillation with episode of rapid ventricular response. She has continued to be dyspneic although slightly better than yesterday. She denies any chest pain. She is anxious. She denies any dizziness or palpitations. She denies any nausea, hemodynamically stable and continued to be on IV Cardizem at 15 mg an hour. Otherwise, she is on aspirin 81 mg daily, Lipitor 20 mg daily, digoxin 0.125 mg daily, Lasix 40 mg daily, losartan 50 mg daily, in addition to her inhalers and the antibiotics. PHYSICAL EXAMINATION: Her blood pressure 122/60 with a heart rate in the 100 to 130. Lungs with decreased air exchange, though slightly improved as compared to yesterday with scattered wheezing. HEART: Irregularly, irregular. S1, S2, no S3, with a systolic murmur. ABDOMEN: Soft, obese, nontender. EXTREMITIES: +1 edema. LAB DATA: Her echocardiogram revealed a preserved left ventricular size and systolic function. Her PA pressure was estimated at 30 mmHg. There was mild mitral regurgitation. Her white blood cell is 27.7. Hemoglobin 12.3. BUN and creatinine of 18 and 0.4. Her magnesium 2.2. Her chest x-ray showed no significant changes. IMPRESSION: 1. Exacerbation of chronic obstructive pulmonary disease with pneumonia. 2. Atrial fibrillation with rapid ventricular response. 3. History of coronary artery disease; appears to be stable. 4. Chronic hypoxemia. 5. History of hypertension. 6. Hyperlipidemia. 7. Diabetes mellitus. 8. History of chronic tobacco use. RECOMMENDATION: From the cardiac standpoint, I will add a low dose of beta kelly to see if we can control her ventricular response. I will continue IV Cardizem for another 24 hours. I will reinitiate anticoagulation. Depending on her progress, further recommendation will be made.
--- NOTE | 2016-11-23 10:05 | HP ---
DATE OF ADMISSION: CHIEF COMPLAINT: Shortness of breath and pneumonitis. HISTORY OF PRESENT ILLNESS: This is another admission for this 71-year-old white female who has a history of combined COPD, asthma, and CHF. She has a history of atrial fibrillation. She has been doing fairly well, but she came to the emergency room when she developed increasing shortness of breath and was admitted with left lower lobe pneumonia, reactive airway disease, COPD and CHF. Her INR was also greater than 10. REVIEW OF SYSTEMS: She denies any headaches, confusion, change in the vision or hearing, hemoptysis, sputum production, abdominal pain, vomiting, hematemesis, melena, hematochezia, jaundice, hematuria, frequency, urgency, dysuria, renal disease, arthralgias. Past medical history, family history and personal and social histories are all otherwise unremarkable and unchanged and demonstrate that she is allergic to QUINOLONES. She takes Xanax 0.25 t.i.d. p.r.n. Lasix 40 once a day, Coumadin 5 once a day, Cardizem CD 180 once a day, Cozaar 50 once a day, Prilosec 20 once a day, Lipitor 20 at bedtime, metformin 500 twice a day, Lovaza 1 gm once a day, [place] 5 q.6 p.r.n., Neurontin 100 mg 3 times a day, trazodone 50 mg 1 or 2 at bedtime, Celebrex 200 twice a day, Advair 500/50 two puffs twice a day, updrafts with albuterol, Spiriva 1 puff once a day, vitamin D3, aspirin 81 mg. PHYSICAL EXAMINATION: Blood pressure is 146/80 with a pulse of 115 and irregular, respirations were 44 and she is afebrile. GENERAL: She appeared to be short of breath. The skin color is normal. Head, ears, eyes, nose, mouth, and throat were normal. Neck veins are not distended. Chest demonstrated the inspiratory and expiratory wheezing bilaterally with rales and rhonchi scattered throughout. Cardiac exam demonstrates atrial fibrillation with a rapid ventricular response. The abdomen is soft and protuberant without masses. The extremities are normal. Neurologically she is intact. She is admitted to the hospital with diagnoses: 1. Congestive heart failure. 2. Left lower lobe pneumonitis. 3. Chronic obstructive pulmonary disease. 4. Reactive airway disease. PLAN: 1. Bed rest. 2. IV fluids. 3. IV and inhaled steroids. 4. ( ). 5. Diuretic management.
[2016-11-23 10:09] LABS: Glucose,Whole Blood 283 mg/dL (75-99)
--- NOTE | 2016-11-23 10:10 | PN ---
DATE OF SERVICE: 11/22/2016 CHIEF COMPLAINT: Congestive heart failure, left lower lobe pneumonia and COPD. HISTORY OF PRESENT ILLNESS: This lady is doing a little bit better. Her INR is still greatly prolonged. She has not had any chest pain and shortness of breath is slightly better. PHYSICAL EXAMINATION: She has rales at both bases. Cardiac exam demonstrates her atrial fibrillation. Abdomen is soft and nontender. IMPRESSION: 1. Left lower lobe pneumonitis. 2. Congestive heart failure. 3. Atrial fibrillation with rapid ventricular rate. 4. Chronic obstructive pulmonary disease. PLAN: 1. Correct INR. 2. Continue with updrafts, IV fluids and antibiotics.
[2016-11-23 11:02] LABS: Glucose,Whole Blood 254 mg/dL (75-99)
[2016-11-23 11:57] LABS: Glucose,Whole Blood 166 mg/dL (75-99)
[2016-11-23] MEDS: ALPRAZolam 0.5 MG TAB PO PRN ×2 (12:07→20:32)
[2016-11-23 13:15] LABS: Glucose,Whole Blood 122 mg/dL (75-99)
--- NOTE | 2016-11-23 13:36 | P.PN ---
Subjective 71-year-old female sitting up in a chair being seen in the intensive care unit. Patient currently states continues to feel short of breath with exertion. Patient is noted to be followed by pulmonary and cardiology service. Patient currently is on an IV Cardizem drip for atrial fibrillation with an episode of rapid ventricular response. Echocardiogram was obtained which showed left contiguous systolic function low normal with an EF between 50 and 55% with no evidence of pulmonary hypertension. Patients being followed by pulmonology service being treated for an acute exacerbation of COPD the secondary to acute community-acquired lingular pneumonia with extensive consolidation of the lingular aspect of the left lung did note the blood sugars were elevated suspect due to steroids. Currently on Solu-Medrol 60 IV every 6 hours Objective - Vital Signs Vital signs: Vital Signs Temp 98.4 F 11/23/16 08:00 Pulse 94 11/23/16 12:00 Resp 19 11/23/16 12:00 BP 129/76 11/23/16 12:00 Pulse Ox 96 11/23/16 12:00 Intake & Output 11/22/16 11/23/16 11/23/16 18:59 06:59 18:59 Intake Total 437.658 656.000 318.148 Output Total 1350 1350 1300 Balance -912.342 -694.000 -981.852 Intake: IV 240 220 120 Sodium Chloride 0.9% 1, 240 220 120 000 ml @ 20 mls/hr IV . Q24H JULIÁN Rx#:[id number] Intake, IV Titration 197.658 186.000 198.148 Amount Diltiazem 125 mg In 79.5 120.5 125 Sodium Chloride 0.9% 100 ml @ 15 MG/HR 15 mls/hr IV .Q8H20M JULI[facility]N Rx#: [id number] Insulin Regular 100 unit 68.158 65.500 73.148 In Sodium Chloride 0.9% 100 ml @ Per Protocol IV .Q0M JULIÁN Rx#:[id number] cefTRIAXone 1,000 mg In 50 Sodium Chloride 0.9% 50 ml @ 100 mls/hr IVPB Q24H JUL[facility]N Rx#:[id number] Oral 250 Output: Urine 1350 1350 1300 Other: Voiding Method Toilet # Voids 1 1 # Bowel Movements 1 - Exam Physical exam 71-year-old female sitting up in a chair being seen in the intensive care unit states breathing feels slightly improved but continues to feel short of breath with exertion Lungs posterior diminished at the bases with a few prolonged expiratory wheezing noted no cough noted no conversational dyspnea noted Heart S1-S2 audible and irregular monitor atrial fibrillation Abdomen soft nontender denies any nausea vomiting no palpable organomegaly Extremities no edema noted to the upper or lower extremities - Labs CBC & Chem 7: 11/23/16 04:37 11/23/16 04:37 Labs: Abnormal Lab Results - Last 24 Hours (Table) 11/22/16 11/22/16 11/22/16 Range/Units 04:25 14:19 15:00 WBC (3.8-10.6) k/uL Neutrophils # (1.3-7.7) k/uL Lymphocytes # (1.0-4.8) k/uL PT (9.0-12.0) sec Sodium (137-145) mmol/L Carbon Dioxide (22-30) mmol/L BUN (7-17) mg/dL Creatinine (0.52-1.04) mg/dL Glucose (74-99) mg/dL POC Glucose (mg/dL) 212 H 235 H (75-99) mg/dL TSH 0.239 L (0.465-4.680) mIU/L 11/22/16 11/22/16 11/22/16 Range/Units 16:03 17:01 18:19 WBC (3.8-10.6) k/uL Neutrophils # (1.3-7.7) k/uL Lymphocytes # (1.0-4.8) k/uL PT (9.0-12.0) sec Sodium (137-145) mmol/L Carbon Dioxide (22-30) mmol/L BUN (7-17) mg/dL Creatinine (0.52-1.04) mg/dL Glucose (74-99) mg/dL POC Glucose (mg/dL) 187 H 203 H 198 H (75-99) mg/dL TSH (0.465-4.680) mIU/L 11/22/16 11/22/16 11/22/16 Range/Units 20:09 21:13 22:07 WBC (3.8-10.6) k/uL Neutrophils # (1.3-7.7) k/uL Lymphocytes # (1.0-4.8) k/uL PT (9.0-12.0) sec Sodium (137-145) mmol/L Carbon Dioxide (22-30) mmol/L BUN (7-17) mg/dL Creatinine (0.52-1.04) mg/dL Glucose (74-99) mg/dL POC Glucose (mg/dL) 176 H 177 H 186 H (75-99) mg/dL TSH (0.465-4.680) mIU/L 11/22/16 11/23/16 11/23/16 Range/Units 23:07 00:12 01:05 WBC (3.8-10.6) k/uL Neutrophils # (1.3-7.7) k/uL Lymphocytes # (1.0-4.8) k/uL PT (9.0-12.0) sec Sodium (137-145) mmol/L Carbon Dioxide (22-30) mmol/L BUN (7-17) mg/dL Creatinine (0.52-1.04) mg/dL Glucose (74-99) mg/dL POC Glucose (mg/dL) 234 H 190 H 167 H (75-99) mg/dL TSH (0.465-4.680) mIU/L 11/23/16 11/23/16 11/23/16 Range/Units 02:12 03:10 04:12 WBC (3.8-10.6) k/uL Neutrophils # (1.3-7.7) k/uL Lymphocytes # (1.0-4.8) k/uL PT (9.0-12.0) sec Sodium (137-145) mmol/L Carbon Dioxide (22-30) mmol/L BUN (7-17) mg/dL Creatinine (0.52-1.04) mg/dL Glucose (74-99) mg/dL POC Glucose (mg/dL) 154 H 160 H 183 H (75-99) mg/dL TSH (0.465-4.680) mIU/L 11/23/16 11/23/16 11/23/16 Range/Units 04:37 04:37 04:37 WBC 27.7 H* (3.8-10.6) k/uL Neutrophils # 26.6 H (1.3-7.7) k/uL Lymphocytes # 0.5 L (1.0-4.8) k/uL PT 13.6 H (9.0-12.0) sec Sodium 136 L (137-145) mmol/L Carbon Dioxide 21 L (22-30) mmol/L BUN 18 H (7-17) mg/dL Creatinine 0.40 L (0.52-1.04) mg/dL Glucose 172 H (74-99) mg/dL POC Glucose (mg/dL) (75-99) mg/dL TSH (0.465-4.680) mIU/L 11/23/16 11/23/16 11/23/16 Range/Units 05:28 07:45 09:08 WBC (3.8-10.6) k/uL Neutrophils # (1.3-7.7) k/uL Lymphocytes # (1.0-4.8) k/uL PT (9.0-12.0) sec Sodium (137-145) mmol/L Carbon Dioxide (22-30) mmol/L BUN (7-17) mg/dL Creatinine (0.52-1.04) mg/dL Glucose (74-99) mg/dL POC Glucose (mg/dL) 139 H 220 H 276 H (75-99) mg/dL TSH (0.465-4.680) mIU/L 11/23/16 11/23/16 11/23/16 Range/Units 10:06 11:01 11:55 WBC (3.8-10.6) k/uL Neutrophils # (1.3-7.7) k/uL Lymphocytes # (1.0-4.8) k/uL PT (9.0-12.0) sec Sodium (137-145) mmol/L Carbon Dioxide (22-30) mmol/L BUN (7-17) mg/dL Creatinine (0.52-1.04) mg/dL Glucose (74-99) mg/dL POC Glucose (mg/dL) 283 H 254 H 166 H (75-99) mg/dL TSH (0.465-4.680) mIU/L 11/23/16 Range/Units 13:13 WBC (3.8-10.6) k/uL Neutrophils # (1.3-7.7) k/uL Lymphocytes # (1.0-4.8) k/uL PT (9.0-12.0) sec Sodium (137-145) mmol/L Carbon Dioxide (22-30) mmol/L BUN (7-17) mg/dL Creatinine (0.52-1.04) mg/dL Glucose (74-99) mg/dL POC Glucose (mg/dL) 122 H (75-99) mg/dL TSH (0.465-4.680) mIU/L Assessment and Plan Plan: Impression Present on admission atrial fibrillation with a rapid ventricular response suspect exacerbated by underlying pneumonia Community acquired lingular pneumonia with extensive consolidation of the lingular segment of the left lung Acute on chronic hypoxic respiratory failure multifactorial likely due to an exacerbation of COPD with community acquired lingular pneumonia Chronic atrial fibrillation with episodes of rapid ventricular response Present on admission Coumadin toxicity INR 10 Coronary artery disease with prior coronary stenting type 2 diabetes insulin requiring Episodes of hyperglycemia likely due to steroids Hypertension Present on admission Leukocytosis likely due to pneumonia Chronic nicotine dependency greater than a 40 year history down to 4-5 cigarettes a day Chronic physical debility due to comorbidities Episodes of chest discomfort likely due to respiratory no evidence of acute coronary syndrome Plan Continue recommendations by pulmonology service defer to Continue recommendations by cardiology service defer to DVT and GI prophylaxis Monitor blood sugars address per protocol Continue to reinforce smoking cessation information patient advised to stop smoking Respiratory treatments as ordered Further recommendations pending Start Lantus 10 units at bedtime and monitor blood sugars The above dictated assessment and findings were discussed with dr david Rogers and the plan of care have been dictated as directed. Nancy Nobles nurse practitioner acting as a scribe for dr hernandez
[2016-11-23 14:28] LABS: Glucose,Whole Blood 172 mg/dL (75-99)
[2016-11-23 14:57] LABS: Glucose,Whole Blood 194 mg/dL (75-99)
--- NOTE | 2016-11-23 15:26 | CDI ---
In responding to this query, please exercise your independent professional judgment. The [facility] Coding Staff and Clinical Documentation Specialists appreciate your assistance in clarifying documentation, maintaining compliance with coding guidelines, accurately documenting patients condition and capturing severity of illness. The fact that a question is asked does not imply that any particular answer is desired or expected. Communication forms are a method of clarifying documentation and are not made part of the Legal Health Record. Thank you in advance for your clarification. Last Revision, November 2015 Ray Taveras [address] [place] [address] Documentation Clarification Form Date: 11/23/2016 2:58:00 PM From: Altagracia Rachelle Admit Date: 11/21/2016 6:44:00 PM Patient Name: Darleen Jorgensen Visit Number: [id number] Discharge Date: Dr. Chuy Soliman/Nancy Nobles [employer] CHF is documented in the H&P and progress notes on 11/23/16. History/Risk Factors: COPD, Chronic Atrial Fibrillation, Coronary artery disease Skin cancer, Diabetes Mellitus, Hypertension, Current every day smoker Clinical Indicators: Developed increasing shortness of breath. Lung sounds: Inspiratory and expiratory wheezing bilaterally with rales and rhonchi scattered throughout. Impression: congestive heart failure, left lower lobe pneumonitis. COPD VS: 135/77 114 26 100.5 EKG: Atrial fibrillation with rapid ventricular response. BNP: 891 Echocardiogram Results: EF between 50-55 %, no pulmonary hypertension Chest X Ray: Lingula pneumonic consolidation consistent with pneumonia. No heart failure Treatment: Diuretic management (Lasix po daily) Digoxin PO Duoneb inhalation, Consults: Cardiology: severe COPD on home O2 with possible pneumonia. Recurrent atrial fibrillation. Pulmonary: ac community-acquired lingular pneumonia. Acute COPD exacerbation, chronic hypoxic respiratory failure, chronic atrial fibrillation In your professional opinion, can you please clarify the acuity and type of CHF if known? Acute Chronic Acute on Chronic AND Systolic Diastolic Systolic and Diastolic Cor Pulmonale (Right Sided HF w/ Pulmonary HTN) Unable to determine Other, please specify If known, please specify if Heart Failure is due to: Hypertension Rheumatic Fever Please document in your progress notes and discharge summary in order to capture severity of illness and risk of mortality. Include clinical findings that support your diagnosis. FYI: Press F11 to launch patient chart. Place X here if this finding has no clinical significance, is not applicable or if you are not able to provide any additional documentation. MTDD
[2016-11-23 16:04] LABS: Glucose,Whole Blood 173 mg/dL (75-99)
--- NOTE | 2016-11-23 16:41 | P.PN ---
Subjective 71-year-old female patient with advanced COPD, chronic hypoxic respiratory failure, was seen Dr. Galvan in the past and currently is interested in switching services. The patient is also known to have coronary artery disease, chronic atrial fibrillation and she is morbidly obese and she has been treated for hypertension hyperlipidemia and she has been on long-term anticoagulation for chronic atrial fibrillation. The patient presented yesterday to the emergency department because of worsening shortness of breath. She was having increased cough chest congestion and wheezing. A chest x-ray was done and showed a lingular consolidation/ pneumonia. The patient was also found to be in atrial fibrillation with rapid ventricle response and she was also toxic on her Coumadin. As such, the patient was admitted to the intensive care unit where she was started on a broad -spectrum antibiotics. She is currently on a Cardizem drip for rate control and Cardizem drip is running at 50 mg an hour. She was given a dose of digoxin by cardiology to achieve a better rate control. She was given vitamin K for her coagulopathy and subsequent INR is down to 5. No signs of any acute bleeding at this point. No change in mental status. She was having some chest congestion and chest discomfort over the left anterior chest area which corresponds to her lingular pneumonia. No swelling in lower extremities. No nausea. No vomiting. No abdominal pain. No diarrhea. No other complaints otherwise for now. On 11/20/2016 the patient is being seen in follow-up. The patient is still antibiotics regarding her lingular pneumonia. The patient is receiving Rocephin and Zithromax. She is still on a Cardizem drip for rate control and she is still on 50 mg an hour of Cardizem drip. She is doing well. No specific complaints pH is less short of breath. She was given a dose of Lasix and she diuresed more than liter earlier this morning. No nausea. No vomiting. No emesis. Chest x-ray showing stable consolidation of the lingula, probably somewhat better compared to yesterday. The patient's coagulopathy has been reversed and the patient will be restarted back on anticoagulation. No mental status change. No other new complaints otherwise for now. Objective - Vital Signs Vital signs: Vital Signs Temp 98.4 F 11/23/16 08:00 Pulse 81 11/23/16 15:00 Resp 13 11/23/16 15:00 BP 105/65 11/23/16 15:00 Pulse Ox 91 L 11/23/16 15:48 Intake & Output 11/22/16 11/23/16 11/23/16 18:59 06:59 18:59 Intake Total 437.658 656.000 381.331 Output Total 1350 1350 1750 Balance -912.342 -694.000 -1368.669 Intake: IV 240 220 180 Sodium Chloride 0.9% 1, 240 220 180 000 ml @ 20 mls/hr IV . Q24H JULI[facility]N Rx#:[id number] Intake, IV Titration 197.658 186.000 201.331 Amount Diltiazem 125 mg In 79.5 120.5 125 Sodium Chloride 0.9% 100 ml @ 15 MG/HR 15 mls/hr IV .Q8H20M JULI[facility]N Rx#: [id number] Insulin Regular 100 unit 68.158 65.500 76.331 In Sodium Chloride 0.9% 100 ml @ Per Protocol IV .Q0M JULI[facility]N Rx#:[id number] cefTRIAXone 1,000 mg In 50 Sodium Chloride 0.9% 50 ml @ 100 mls/hr IVPB Q24H JULI[facility]N Rx#:[id number] Oral 250 Output: Urine 1350 1350 1750 Other: Voiding Method Toilet # Voids 1 1 # Bowel Movements 1 - Exam Head exam was generally normal. There was no scleral icterus or corneal arcus. Mucous membranes were moist.neck is short and supple and there is significant crowding of the posterior pharynx. There is no with or neck masses. Lungs sounds are diminished bilaterally along with that there is some few scattered expiratory wheezes with crackles can be. Over the left anterior chest area. Heart sounds are irregular, positive S1-S2 and there is no significant murmurs appreciated. Overall heart sounds are distant. Abdomen is slightly distended soft and orders cannot be accurately palpated. There is no direct tenderness or rebound tenderness or guarding.Examination of the extremities revealed easily palpable radial, femoral and pedal pulses. There was no cyanosis, clubbing or edema. - Labs CBC & Chem 7: 11/23/16 04:37 11/23/16 04:37 Labs: Abnormal Lab Results - Last 24 Hours (Table) 11/22/16 11/22/16 11/22/16 Range/Units 17:01 18:19 20:09 WBC (3.8-10.6) k/uL Neutrophils # (1.3-7.7) k/uL Lymphocytes # (1.0-4.8) k/uL PT (9.0-12.0) sec Sodium (137-145) mmol/L Carbon Dioxide (22-30) mmol/L BUN (7-17) mg/dL Creatinine (0.52-1.04) mg/dL Glucose (74-99) mg/dL POC Glucose (mg/dL) 203 H 198 H 176 H (75-99) mg/dL 11/22/16 11/22/16 11/22/16 Range/Units 21:13 22:07 23:07 WBC (3.8-10.6) k/uL Neutrophils # (1.3-7.7) k/uL Lymphocytes # (1.0-4.8) k/uL PT (9.0-12.0) sec Sodium (137-145) mmol/L Carbon Dioxide (22-30) mmol/L BUN (7-17) mg/dL Creatinine (0.52-1.04) mg/dL Glucose (74-99) mg/dL POC Glucose (mg/dL) 177 H 186 H 234 H (75-99) mg/dL 11/23/16 11/23/16 11/23/16 Range/Units 00:12 01:05 02:12 WBC (3.8-10.6) k/uL Neutrophils # (1.3-7.7) k/uL Lymphocytes # (1.0-4.8) k/uL PT (9.0-12.0) sec Sodium (137-145) mmol/L Carbon Dioxide (22-30) mmol/L BUN (7-17) mg/dL Creatinine (0.52-1.04) mg/dL Glucose (74-99) mg/dL POC Glucose (mg/dL) 190 H 167 H 154 H (75-99) mg/dL 11/23/16 11/23/16 11/23/16 Range/Units 03:10 04:12 04:37 WBC 27.7 H* (3.8-10.6) k/uL Neutrophils # 26.6 H (1.3-7.7) k/uL Lymphocytes # 0.5 L (1.0-4.8) k/uL PT (9.0-12.0) sec Sodium (137-145) mmol/L Carbon Dioxide (22-30) mmol/L BUN (7-17) mg/dL Creatinine (0.52-1.04) mg/dL Glucose (74-99) mg/dL POC Glucose (mg/dL) 160 H 183 H (75-99) mg/dL 11/23/16 11/23/16 11/23/16 Range/Units 04:37 04:37 05:28 WBC (3.8-10.6) k/uL Neutrophils # (1.3-7.7) k/uL Lymphocytes # (1.0-4.8) k/uL PT 13.6 H (9.0-12.0) sec Sodium 136 L (137-145) mmol/L Carbon Dioxide 21 L (22-30) mmol/L BUN 18 H (7-17) mg/dL Creatinine 0.40 L (0.52-1.04) mg/dL Glucose 172 H (74-99) mg/dL POC Glucose (mg/dL) 139 H (75-99) mg/dL 11/23/16 11/23/16 11/23/16 Range/Units 07:45 09:08 10:06 WBC (3.8-10.6) k/uL Neutrophils # (1.3-7.7) k/uL Lymphocytes # (1.0-4.8) k/uL PT (9.0-12.0) sec Sodium (137-145) mmol/L Carbon Dioxide (22-30) mmol/L BUN (7-17) mg/dL Creatinine (0.52-1.04) mg/dL Glucose (74-99) mg/dL POC Glucose (mg/dL) 220 H 276 H 283 H (75-99) mg/dL 11/23/16 11/23/16 11/23/16 Range/Units 11:01 11:55 13:13 WBC (3.8-10.6) k/uL Neutrophils # (1.3-7.7) k/uL Lymphocytes # (1.0-4.8) k/uL PT (9.0-12.0) sec Sodium (137-145) mmol/L Carbon Dioxide (22-30) mmol/L BUN (7-17) mg/dL Creatinine (0.52-1.04) mg/dL Glucose (74-99) mg/dL POC Glucose (mg/dL) 254 H 166 H 122 H (75-99) mg/dL 11/23/16 11/23/16 11/23/16 Range/Units 14:27 14:55 16:03 WBC (3.8-10.6) k/uL Neutrophils # (1.3-7.7) k/uL Lymphocytes # (1.0-4.8) k/uL PT (9.0-12.0) sec Sodium (137-145) mmol/L Carbon Dioxide (22-30) mmol/L BUN (7-17) mg/dL Creatinine (0.52-1.04) mg/dL Glucose (74-99) mg/dL POC Glucose (mg/dL) 172 H 194 H 173 H (75-99) mg/dL Assessment and Plan Plan: Impression 1 acute community-acquired lingular pneumonia with extensive consolidation of the lingular segment of the left lung On 11/23/2016, the patient is still on broad-spectrum antibiotics on a combination of Rocephin and Zithromax and the chest x-ray showing stable consolidation of the lingula, probably some slight improvement compared to yesterday. 2 acute COPD exacerbation secondary to above, the patient has advanced COPD at baseline and she is demented on a combination of Advair and Spiriva. 3 chronic hypoxic respiratory failure 4 leukocytosis secondary to pneumonia, white cell count remains elevated. 5 chronic atrial fibrillation with rapid ventricular response, exacerbated by underlying pneumonia, still on a Cardizem drip 6 Coumadin toxicity, being reversed with vitamin K, follow-up INR today is 1.4 7 coronary artery disease with previous coronary intervention and stenting currently stable 8 diabetes mellitus 9 hypertension 10 hyperlipidemia 11 obstructive sleep apnea noncompliant to CPAP therapy 12 skin cancer resected 13 nicotine addiction/smoking. 14 macular degeneration Plan Cover the patient with Rocephin and Zithromax. The patient has a presumptive staph aureus in the sputum and for that reason I will drop the Rocephin and switch the patient to Teflaro and keep Zithromax for now. The patient is currently off BiPAP. Agree on diuretics. Restart anticoagulation. Keep the patient intensive care follow 24 hours. Repeat chest x-ray in the morning. We' ll continue to follow.
[2016-11-23 16:57] LABS: Glucose,Whole Blood 158 mg/dL (75-99)
[2016-11-23 17:08] LABS: Glucose,Whole Blood 152 mg/dL (75-99)
[2016-11-23] MEDS ORDERED: WARFARIN 5 MG TAB PO ONE (18:00)
[2016-11-23 18:13] LABS: Glucose,Whole Blood 126 mg/dL (75-99)
[2016-11-23] MEDS: VARENICLINE 1 MG TAB PO SCH (18:15)
[2016-11-23] MEDS: AZITHROMYCIN 500 MG TAB PO SCH (18:16)
[2016-11-23 19:14] LABS: Glucose,Whole Blood 181 mg/dL (75-99)
[2016-11-23 20:13] LABS: Glucose,Whole Blood 164 mg/dL (75-99)
[2016-11-23] MEDS: CEFTAROLINE FOSAMIL 600 MG in SODIUM CHLORIDE 0.9% 250 ML IVPB SCH (20:33)
[2016-11-23] MEDS: SODIUM CHLORIDE 0.9% 1,000 ML IV SCH (20:33)
[2016-11-23] MEDS: traZODone HCL 50 MG TAB PO SCH (20:35)
[2016-11-23] MEDS: INSULIN GLARGINE 100 UNIT/ML 10 ML VIAL SQ SCH (20:53)
[2016-11-23 21:01] LABS: Glucose,Whole Blood 151 mg/dL (75-99)
[2016-11-23 22:03] LABS: Glucose,Whole Blood 149 mg/dL (75-99)
[2016-11-23 23:46] LABS: Glucose,Whole Blood 123 mg/dL (75-99)
[2016-11-24] MEDS: IPRATROPIUM-ALBUTEROL 3 ML NEB INHALATION PRN ×2 (00:01→04:40)
[2016-11-24 01:04] LABS: Glucose,Whole Blood 184 mg/dL (75-99)
[2016-11-24 02:08] LABS: Glucose,Whole Blood 158 mg/dL (75-99)
[2016-11-24 03:14] LABS: Glucose,Whole Blood 139 mg/dL (75-99)
[2016-11-24 04:05] LABS: Glucose,Whole Blood 140 mg/dL (75-99)
[2016-11-24 04:24] LABS: Basophils % (A) 0 %; CH 30.1; CHCM 31.8; Eosinophils % (A) 0 %; HCT 37.7 % (34.0-46.0); HDW 2.35; HGB 11.7 gm/dL (11.4-16.0); Luc # (Auto) 0.15; Luc % (Auto) 1; Lymphocytes # (A) 0.4 k/uL (1.0-4.8); Lymphocytes % (A) 2 %; MCH 29.6 pg (25.0-35.0); MCHC 31.1 g/dL (31.0-37.0); MCV 95.1 fL (80.0-100.0); Mean Platelet Volume 7.7; Monocytes # (A) 0.6 k/uL (0-1.0); Monocytes % (A) 2 %; Neutrophils % (A) 95 %; RBC 3.96 m/uL (3.80-5.40); RDW 12.9 % (11.5-15.5); WBC (Perox) 27.29
[2016-11-24 04:30] LABS: WBC 26.3 k/uL (3.8-10.6)
[2016-11-24 04:34] LABS: INR 1.1 (<1.1); Prothrombin Time 11.5 sec (9.0-12.0)
[2016-11-24 04:51] LABS: Anion Gap 10 mmol/L; Blood Urea Nitrogen 26 mg/dL (7-17); Calcium 9.2 mg/dL (8.4-10.2); Carbon Dioxide 22 mmol/L (22-30); Chloride 104 mmol/L (98-107); Glucose 152 mg/dL (74-99); Magnesium 2.3 mg/dL (1.6-2.3); Non-African American GFR(MDRD) >60 (>60 ml/min/1.73 sqM); Phosphorous 3.5 mg/dL (2.5-4.5); Potassium 4.7 mmol/L (3.5-5.1); Sodium 136 mmol/L (137-145)
[2016-11-24 05:12] LABS: Glucose,Whole Blood 214 mg/dL (75-99)
[2016-11-24] MEDS: methylPREDNISolone SOD SUCCI 125 MG/2 ML VIAL IV SCH (05:32)
[2016-11-24 06:17] LABS: Glucose,Whole Blood 195 mg/dL (75-99)
[2016-11-24 07:13] LABS: Glucose,Whole Blood 175 mg/dL (75-99)
[2016-11-24] MEDS: LEVALBUTEROL NEB (CONC) 1.25 MG/0.5 ML AMP INHALATION SCH ×2 (07:31→11:08)
[2016-11-24] MEDS: IPRATROPIUM 0.5 MG/2.5 ML NEBU INHALATION SCH ×2 (07:32→11:08)
[2016-11-24 07:55] LABS: Glucose,Whole Blood 155 mg/dL (75-99)
[2016-11-24] MEDS ORDERED: FUROSEMIDE 10 MG/ML 4 ML VIAL IV STA (08:13)
--- NOTE | 2016-11-24 08:28 | XR ---
EXAMINATION TYPE: XR chest 1V DATE OF EXAM: 11/24/2016 6:54 AM COMPARISON: Prior chest x-ray 23 November 2016 HISTORY: Pneumonia TECHNIQUE: Single frontal view of the chest is obtained. FINDINGS: There are overlying cardiac leads and the heart remains enlarged. There may be some improv ement in aeration in volume status. No evident pneumothorax or pleural effusion. IMPRESSION: Findings may represent improvement in pneumonia, volume status, follow-up PA and lateral chest x-ray recommended.
[2016-11-24] MEDS: ASPIRIN 81 MG CHEW PO SCH (08:30)
[2016-11-24] MEDS: ATORVASTATIN 20 MG TAB PO SCH (08:30)
[2016-11-24] MEDS: VARENICLINE 1 MG TAB PO SCH ×2 (08:30→18:57)
[2016-11-24] MEDS: DILTIAZEM ORAL 60 MG TAB PO SCH ×3 (08:31→21:12)
[2016-11-24] MEDS: DIGOXIN 125 MCG TAB PO SCH (08:31)
[2016-11-24] MEDS: DOCUSATE 100 MG CAP PO SCH ×2 (08:32→19:59)
[2016-11-24] MEDS: FUROSEMIDE 40 MG TAB PO SCH (08:32)
[2016-11-24] MEDS: FERROUS SULFATE 325 MG TAB PO SCH ×3 (08:32→21:12)
[2016-11-24] MEDS: MELOXICAM 7.5 MG TAB PO SCH (08:33)
[2016-11-24] MEDS: LOSARTAN 50 MG TAB PO SCH (08:33)
[2016-11-24] MEDS: OXYBUTYNIN XL 5 MG TAB.ER.24 PO SCH (08:34)
[2016-11-24] MEDS: METOPROLOL TARTRATE 25 MG TAB PO SCH ×3 (08:34→21:12)
[2016-11-24] MEDS: ALPRAZolam 0.5 MG TAB PO PRN ×3 (08:34→19:40)
[2016-11-24] MEDS: PANTOPRAZOLE 40 MG TABLET PO SCH (08:34)
[2016-11-24] MEDS: CEFTAROLINE FOSAMIL 600 MG in SODIUM CHLORIDE 0.9% 250 ML IVPB SCH ×2 (08:38→20:00)
[2016-11-24 08:59] LABS: Glucose,Whole Blood 195 mg/dL (75-99)
--- NOTE | 2016-11-24 09:31 | PN ---
Mrs. Jorgensen is a 71-year-old female who has a known history of severe chronic obstructive lung disease, history of paroxysmal atrial fibrillation, history of coronary artery disease, who presented with symptoms of progressive dyspnea and worsening COPD. She was in atrial fibrillation with rapid ventricular response. She is feeling better today. Her breathing has been stable. She denies any symptoms of chest pain. She denies any dizziness or palpitation. She denies any nausea. Overall she feels better. She was diagnosed with pneumonia, upon her admission. She continues to be on IV Cardizem drip at 15 mg, Lipitor 20 mg daily, digoxin 0.125 mg a day, Lasix 40 mg daily, losartan 50 mg daily, metoprolol tartrate 25 mg twice a day and was started on Coumadin. PHYSICAL EXAMINATION: Blood pressure 139/70 with the heart rate in the low 100s. LUNGS: With improved in the air exchange with minimal wheezes at this point and a few rhonchi. HEART: Irregularly irregular. S1, S2, no S3, no rub. ABDOMEN: Soft, nontender, obese. EXTREMITIES: +1 edema. Lab data revealed an echocardiogram that showed a preserved systolic function. Her white blood cell is 26.3, hemoglobin of 11.7, BUN and creatinine 26 and 0.5. Potassium 4.7. Her INR is 1.1. IMPRESSION: 1. Pneumonia with exacerbation of severe chronic obstructive lung disease. 2. Atrial fibrillation, chronic anticoagulated has been reversed. 3. History of coronary artery disease. 4. Diabetes. 5. Hypertension. 6. Hyperlipidemia. 7. History of chronic tobacco use. RECOMMENDATIONS: From the cardiac standpoint, I will stop the IV Cardizem drip. I will increase the dose of beta kelly. Will switch her to oral Cardizem. I will give another dose of IV Lasix. Will follow her prothrombin time and depending on her progress, further recommendation will be made.
[2016-11-24 09:55] LABS: Glucose,Whole Blood 269 mg/dL (75-99)
[2016-11-24] MEDS ORDERED: IPRATROPIUM 0.5 MG/2.5 ML NEBU INHALATION PRN (11:10)
[2016-11-24] MEDS ORDERED: LEVALBUTEROL NEB (CONC) 1.25 MG/0.5 ML AMP INHALATION PRN (11:10)
[2016-11-24 11:14] LABS: Glucose,Whole Blood 193 mg/dL (75-99)
[2016-11-24] MEDS: INSULIN REGULAR 100 UNIT in SODIUM CHLORIDE 0.9% 100 ML IV SCH (11:14)
[2016-11-24] MEDS: predniSONE 20 MG TAB PO SCH (11:16)
[2016-11-24 12:14] LABS: Glucose,Whole Blood 224 mg/dL (75-99)
[2016-11-24 14:10] LABS: Glucose,Whole Blood 134 mg/dL (75-99)
[2016-11-24 14:59] LABS: Glucose,Whole Blood 141 mg/dL (75-99)
--- NOTE | 2016-11-24 15:43 | P.PN ---
Subjective 71-year-old female patient with advanced COPD, chronic hypoxic respiratory failure, was seen Dr. Galvan in the past and currently is interested in switching services. The patient is also known to have coronary artery disease, chronic atrial fibrillation and she is morbidly obese and she has been treated for hypertension hyperlipidemia and she has been on long-term anticoagulation for chronic atrial fibrillation. The patient presented yesterday to the emergency department because of worsening shortness of breath. She was having increased cough chest congestion and wheezing. A chest x-ray was done and showed a lingular consolidation/ pneumonia. The patient was also found to be in atrial fibrillation with rapid ventricle response and she was also toxic on her Coumadin. As such, the patient was admitted to the intensive care unit where she was started on a broad -spectrum antibiotics. She is currently on a Cardizem drip for rate control and Cardizem drip is running at 50 mg an hour. She was given a dose of digoxin by cardiology to achieve a better rate control. She was given vitamin K for her coagulopathy and subsequent INR is down to 5. No signs of any acute bleeding at this point. No change in mental status. She was having some chest congestion and chest discomfort over the left anterior chest area which corresponds to her lingular pneumonia. No swelling in lower extremities. No nausea. No vomiting. No abdominal pain. No diarrhea. No other complaints otherwise for now. On 11/23/2016 the patient is being seen in follow-up. The patient is still antibiotics regarding her lingular pneumonia. The patient is receiving Rocephin and Zithromax. She is still on a Cardizem drip for rate control and she is still on 50 mg an hour of Cardizem drip. She is doing well. No specific complaints pH is less short of breath. She was given a dose of Lasix and she diuresed more than liter earlier this morning. No nausea. No vomiting. No emesis. Chest x-ray showing stable consolidation of the lingula, probably somewhat better compared to yesterday. The patient's coagulopathy has been reversed and the patient will be restarted back on anticoagulation. No mental status change. No other new complaints otherwise for now. On 11/24/2016, the patient is being seen in follow-up. The patient remains in the intensive care unit for a lingular pneumonia. Today's chest x-ray shows some limited improvement in the left left lung consolidation. Nevertheless, the patient clinically is improved. A chest patient's other better control and the patient was taken off the Cardizem drip and she was started on verapamil orally which is providing adequate rate control. The patient is also being gradually and to coag related regarding her chronic atrial fibrillation and his PT/INR is subtherapeutic. The patient is on a combination of DuoNeb nebulized treatments, IV Solu-Medrol, IV Teflaro and Zithromax. The patient was found to have MRSA in the sputum. The blood cultures negative for now. She is tolerating her diet. No change in mental status. No other complaints otherwise. Objective - Vital Signs Vital signs: Vital Signs Temp 97.9 F 11/24/16 12:00 Pulse 122 H 11/24/16 14:00 Resp 20 11/24/16 14:00 BP 108/61 11/24/16 13:00 Pulse Ox 95 11/24/16 13:00 Intake & Output 11/23/16 11/24/16 11/24/16 18:59 06:59 18:59 Intake Total 917.162 1714.327 1475.606 Output Total 2450 1050 1750 Balance -1869.239 534.327 -274.394 Weight 88.8 kg Intake: IV 240 240 450 Ceftaroline Fosamil 600 250 mg In Sodium Chloride 0.9 % 250 ml @ 250 mls/hr IVPB Q12HR [facility] Rx#: [id number] Sodium Chloride 0.9% 1, 240 240 200 000 ml @ 20 mls/hr IV . Q24H [facility] Rx#:[id number] Intake, IV Titration 340.761 384.327 25.606 Amount Ceftaroline Fosamil 600 250 mg In Sodium Chloride 0.9 % 250 ml @ 250 mls/hr IVPB Q12HR [facility] Rx#: [id number] Diltiazem 125 mg In 246.75 70.25 Sodium Chloride 0.9% 100 ml @ 15 MG/HR 15 mls/hr IV .Q8H20M [facility] Rx#: [id number] Insulin Regular 100 unit 94.011 64.077 25.606 In Sodium Chloride 0.9% 100 ml @ Per Protocol IV .Q0M [facility] Rx#:[id number] Oral 960 1000 Output: Urine 2450 1050 1750 Other: Voiding Method Toilet Toilet Toilet - Exam Head exam was generally normal. There was no scleral icterus or corneal arcus. Mucous membranes were moist.neck is short and supple and there is significant crowding of the posterior pharynx. There is no with or neck masses. Lungs sounds are diminished bilaterally along with that there is some few scattered expiratory wheezes with crackles can be. Over the left anterior chest area. Heart sounds are irregular, positive S1-S2 and there is no significant murmurs appreciated. Overall heart sounds are distant. Abdomen is slightly distended soft and orders cannot be accurately palpated. There is no direct tenderness or rebound tenderness or guarding.Examination of the extremities revealed easily palpable radial, femoral and pedal pulses. There was no cyanosis, clubbing or edema. - Labs CBC & Chem 7: 11/24/16 03:58 11/24/16 03:58 Labs: Abnormal Lab Results - Last 24 Hours (Table) 11/23/16 11/23/16 11/23/16 Range/Units 16:03 16:55 17:07 WBC (3.8-10.6) k/uL Neutrophils # (1.3-7.7) k/uL Lymphocytes # (1.0-4.8) k/uL Sodium (137-145) mmol/L BUN (7-17) mg/dL Creatinine (0.52-1.04) mg/dL Glucose (74-99) mg/dL POC Glucose (mg/dL) 173 H 158 H 152 H (75-99) mg/dL 11/23/16 11/23/16 11/23/16 Range/Units 18:12 19:12 20:12 WBC (3.8-10.6) k/uL Neutrophils # (1.3-7.7) k/uL Lymphocytes # (1.0-4.8) k/uL Sodium (137-145) mmol/L BUN (7-17) mg/dL Creatinine (0.52-1.04) mg/dL Glucose (74-99) mg/dL POC Glucose (mg/dL) 126 H 181 H 164 H (75-99) mg/dL 11/23/16 11/23/16 11/23/16 Range/Units 20:59 22:01 23:45 WBC (3.8-10.6) k/uL Neutrophils # (1.3-7.7) k/uL Lymphocytes # (1.0-4.8) k/uL Sodium (137-145) mmol/L BUN (7-17) mg/dL Creatinine (0.52-1.04) mg/dL Glucose (74-99) mg/dL POC Glucose (mg/dL) 151 H 149 H 123 H (75-99) mg/dL 11/24/16 11/24/16 11/24/16 Range/Units 01:02 02:06 03:12 WBC (3.8-10.6) k/uL Neutrophils # (1.3-7.7) k/uL Lymphocytes # (1.0-4.8) k/uL Sodium (137-145) mmol/L BUN (7-17) mg/dL Creatinine (0.52-1.04) mg/dL Glucose (74-99) mg/dL POC Glucose (mg/dL) 184 H 158 H 139 H (75-99) mg/dL 11/24/16 11/24/16 11/24/16 Range/Units 03:58 03:58 04:02 WBC 26.3 H* (3.8-10.6) k/uL Neutrophils # 25.0 H (1.3-7.7) k/uL Lymphocytes # 0.4 L (1.0-4.8) k/uL Sodium 136 L (137-145) mmol/L BUN 26 H (7-17) mg/dL Creatinine 0.50 L (0.52-1.04) mg/dL Glucose 152 H (74-99) mg/dL POC Glucose (mg/dL) 140 H (75-99) mg/dL 11/24/16 11/24/16 11/24/16 Range/Units 05:11 06:16 07:11 WBC (3.8-10.6) k/uL Neutrophils # (1.3-7.7) k/uL Lymphocytes # (1.0-4.8) k/uL Sodium (137-145) mmol/L BUN (7-17) mg/dL Creatinine (0.52-1.04) mg/dL Glucose (74-99) mg/dL POC Glucose (mg/dL) 214 H 195 H 175 H (75-99) mg/dL 11/24/16 11/24/16 11/24/16 Range/Units 07:52 08:58 09:52 WBC (3.8-10.6) k/uL Neutrophils # (1.3-7.7) k/uL Lymphocytes # (1.0-4.8) k/uL Sodium (137-145) mmol/L BUN (7-17) mg/dL Creatinine (0.52-1.04) mg/dL Glucose (74-99) mg/dL POC Glucose (mg/dL) 155 H 195 H 269 H (75-99) mg/dL 11/24/16 11/24/16 11/24/16 Range/Units 11:12 12:12 14:08 WBC (3.8-10.6) k/uL Neutrophils # (1.3-7.7) k/uL Lymphocytes # (1.0-4.8) k/uL Sodium (137-145) mmol/L BUN (7-17) mg/dL Creatinine (0.52-1.04) mg/dL Glucose (74-99) mg/dL POC Glucose (mg/dL) 193 H 224 H 134 H (75-99) mg/dL 11/24/16 Range/Units 14:57 WBC (3.8-10.6) k/uL Neutrophils # (1.3-7.7) k/uL Lymphocytes # (1.0-4.8) k/uL Sodium (137-145) mmol/L BUN (7-17) mg/dL Creatinine (0.52-1.04) mg/dL Glucose (74-99) mg/dL POC Glucose (mg/dL) 141 H (75-99) mg/dL Assessment and Plan Plan: Impression 1 acute community-acquired lingular pneumonia with extensive consolidation of the lingular segment of the left lung On 11/23/2016, the patient is still on broad-spectrum antibiotics on a combination of Rocephin and Zithromax and the chest x-ray showing stable consolidation of the lingula, probably some slight improvement compared to yesterday. On 11/24/2016, there is a consideration for an MRSA pneumonia. The patient sputum has shown MRSA and the patient is currently on a combination of Teflaro and Zithromax. Rocephin was discontinued. Today chest a shows some modest improvement in the left lung consolidation. 2 acute COPD exacerbation secondary to above, the patient has advanced COPD at baseline and she is demented on a combination of Advair and Spiriva. 3 chronic hypoxic respiratory failure 4 leukocytosis secondary to pneumonia, white cell count remains elevated. 5 chronic atrial fibrillation , currently on improved rate control and the patient was taken off the Cardizem drip and the patient was started on oral medications/Cardizem for rate control. The patient is also on oral metoprolol for rate control. 6 Coumadin toxicity, being reversed with vitamin K, follow-up INR today is 1.1 7 coronary artery disease with previous coronary intervention and stenting currently stable 8 diabetes mellitus 9 hypertension 10 hyperlipidemia 11 obstructive sleep apnea noncompliant to CPAP therapy 12 skin cancer resected 13 nicotine addiction/smoking. 14 macular degeneration Plan Continue Teflaro Zithromax. Repeat chest x-ray in the morning. Agree on stopping the Cardizem drip and the patient is on oral Cardizem. Digoxin is also for rate control. Anticoagulation is being managed by cardiology. The patient will have a follow-up chest x-ray in a.m. to monitor the left lung consolidation. She'll be kept in the intensive care unit for another 24 hours.
--- NOTE | 2016-11-24 15:49 | PN ---
DATE OF SERVICE: 11/21/2016 CHIEF COMPLAINT: Left lower lobe pneumonia, reactive airway disease, COPD and atrial fibrillation. HISTORY OF PRESENT ILLNESS: This lady is doing fairly well but she is still in A. fib. Echocardiogram failed to demonstrate significant cardiac pathology. She is still very dyspneic. PHYSICAL EXAMINATION: She still has rales, rhonchi, and crackles throughout. Cardiac exam demonstrated tachycardia with atrial fibrillation. Abdomen is soft, nontender. IMPRESSION: 1. Left lower lobe pneumonitis. 2. Congestive heart failure. 3. Reactive airway disease. 4. Congestive heart failure. 5. Atrial fibrillation with rapid ventricular rate. PLAN: Continue on current program.
--- NOTE | 2016-11-24 16:11 | PN ---
DATE OF SERVICE: 11/24/2016 CHIEF COMPLAINT: Shortness of breath and left lower lobe pneumonitis. HISTORY OF PRESENT ILLNESS: This lady is doing fairly well. Her sugars are a little bit high, but this is related to the steroids. She also has atrial fibrillation. The patient is doing fairly well. Her PT and INR is down to 1.4 and Coumadin has been reinstituted. PHYSICAL EXAMINATION: She still has decreased breath sounds and crackles and rales throughout. Cardiac exam is normal. ABDOMEN: Soft, nontender. EXTREMITIES: Normal. IMPRESSION: 1. Chronic obstructive pulmonary disease. 2. Reactive airway disease. 3. Left lower lobe pneumonitis. 4. Congestive heart failure. 5. Atrial fibrillation. PLAN: Continue with current program and we will probably move her out of ICU soon.
[2016-11-24 16:18] LABS: Glucose,Whole Blood 173 mg/dL (75-99)
[2016-11-24] MEDS: IPRATROPIUM-ALBUTEROL 3 ML NEB INHALATION SCH ×2 (16:32→19:50)
[2016-11-24 17:03] LABS: Glucose,Whole Blood 212 mg/dL (75-99)
[2016-11-24] MEDS ORDERED: WARFARIN 5 MG TAB PO ONE (18:00)
[2016-11-24 18:51] LABS: Glucose,Whole Blood 165 mg/dL (75-99)
[2016-11-24] MEDS: AZITHROMYCIN 500 MG TAB PO SCH (18:57)
[2016-11-24] MEDS: SODIUM CHLORIDE 0.9% 1,000 ML IV SCH (18:57)
[2016-11-24 19:56] LABS: Glucose,Whole Blood 196 mg/dL (75-99)
[2016-11-24] MEDS: traZODone HCL 50 MG TAB PO SCH (20:00)
[2016-11-24] MEDS: INSULIN GLARGINE 100 UNIT/ML 10 ML VIAL SQ SCH (20:00)
[2016-11-24 21:14] LABS: Glucose,Whole Blood 179 mg/dL (75-99)
[2016-11-24 22:17] LABS: Glucose,Whole Blood 193 mg/dL (75-99)
[2016-11-24 22:55] LABS: Glucose,Whole Blood 168 mg/dL (75-99)
[2016-11-25 00:04] LABS: Glucose,Whole Blood 180 mg/dL (75-99)
[2016-11-25 01:39] LABS: Glucose,Whole Blood 144 mg/dL (75-99)
[2016-11-25] MEDS: IPRATROPIUM-ALBUTEROL 3 ML NEB INHALATION PRN (01:52)
[2016-11-25 02:33] LABS: Glucose,Whole Blood 150 mg/dL (75-99)
[2016-11-25 03:15] LABS: Glucose,Whole Blood 125 mg/dL (75-99)
[2016-11-25 04:09] LABS: Glucose,Whole Blood 135 mg/dL (75-99)
[2016-11-25 04:43] LABS: Basophils % (A) 0 %; CH 29.9; CHCM 31.8; Eosinophils # (A) 0.1 k/uL (0-0.7); Eosinophils % (A) 0 %; HCT 40.1 % (34.0-46.0); HDW 2.37; HGB 12.7 gm/dL (11.4-16.0); Luc # (Auto) 0.26; Luc % (Auto) 1; Lymphocytes # (A) 0.8 k/uL (1.0-4.8); Lymphocytes % (A) 4 %; MCH 29.8 pg (25.0-35.0); MCHC 31.6 g/dL (31.0-37.0); MCV 94.3 fL (80.0-100.0); Mean Platelet Volume 6.7; Monocytes # (A) 0.8 k/uL (0-1.0); Monocytes % (A) 5 %; Neutrophils # (A) 16.7 k/uL (1.3-7.7); Neutrophils % (A) 90 %; RBC 4.25 m/uL (3.80-5.40); RDW 12.7 % (11.5-15.5); WBC 18.6 k/uL (3.8-10.6); WBC (Perox) 19.84
[2016-11-25 04:48] LABS: INR 1.3 (<1.1); Prothrombin Time 13.1 sec (9.0-12.0)
[2016-11-25 04:55] LABS: Glucose,Whole Blood 127 mg/dL (75-99)
[2016-11-25 04:55] LABS: Anion Gap 9 mmol/L; Blood Urea Nitrogen 26 mg/dL (7-17); Calcium 9.2 mg/dL (8.4-10.2); Carbon Dioxide 26 mmol/L (22-30); Chloride 103 mmol/L (98-107); Glucose 142 mg/dL (74-99); Magnesium 2.2 mg/dL (1.6-2.3); Non-African American GFR(MDRD) >60 (>60 ml/min/1.73 sqM); Phosphorous 3.8 mg/dL (2.5-4.5); Potassium 4.2 mmol/L (3.5-5.1); Sodium 138 mmol/L (137-145)
[2016-11-25 07:02] LABS: Glucose,Whole Blood 141 mg/dL (75-99)
--- NOTE | 2016-11-25 07:26 | XR ---
EXAMINATION TYPE: XR chest 1V DATE OF EXAM: 11/25/2016 6:32 AM COMPARISON: 11/24/2016 HISTORY: 71 year-old female follow-up pneumonia TECHNIQUE: Single frontal view of the chest is obtained. FINDINGS: Heart is upper limits of normal in size, unchanged. Continued consolidation in the inferior lingula p artially obscuring the left heart margin. Some of the infiltrate at the peripheral right base shows i mprovement. IMPRESSION: Continued lingular consolidation. Some of the infiltrate at the peripheral right base shows improveme nt.
[2016-11-25] MEDS: IPRATROPIUM-ALBUTEROL 3 ML NEB INHALATION SCH ×3 (07:41→20:00)
[2016-11-25 08:13] LABS: Glucose,Whole Blood 107 mg/dL (75-99)
[2016-11-25] MEDS: DOCUSATE 100 MG CAP PO SCH ×2 (08:15→20:46)
[2016-11-25] MEDS: ALPRAZolam 0.5 MG TAB PO PRN ×2 (08:15→20:47)
[2016-11-25] MEDS: VARENICLINE 1 MG TAB PO SCH ×2 (08:16→19:18)
[2016-11-25] MEDS: DIGOXIN 125 MCG TAB PO SCH (08:16)
[2016-11-25] MEDS: predniSONE 20 MG TAB PO SCH (08:16)
[2016-11-25] MEDS: FUROSEMIDE 40 MG TAB PO SCH (08:16)
[2016-11-25] MEDS: ASPIRIN 81 MG CHEW PO SCH (08:17)
[2016-11-25] MEDS: METOPROLOL TARTRATE 25 MG TAB PO SCH ×3 (08:17→20:47)
[2016-11-25] MEDS: OXYBUTYNIN XL 5 MG TAB.ER.24 PO SCH (08:17)
[2016-11-25] MEDS: PANTOPRAZOLE 40 MG TABLET PO SCH (08:19)
[2016-11-25] MEDS: LOSARTAN 50 MG TAB PO SCH (08:19)
[2016-11-25] MEDS: MELOXICAM 7.5 MG TAB PO SCH (08:19)
[2016-11-25] MEDS: ATORVASTATIN 20 MG TAB PO SCH (08:20)
[2016-11-25] MEDS: FERROUS SULFATE 325 MG TAB PO SCH ×3 (08:20→20:47)
[2016-11-25] MEDS: DILTIAZEM ORAL 60 MG TAB PO SCH ×4 (08:25→20:47)
[2016-11-25] MEDS: CEFTAROLINE FOSAMIL 600 MG in SODIUM CHLORIDE 0.9% 250 ML IVPB SCH ×2 (08:27→20:59)
--- NOTE | 2016-11-25 09:04 | PN ---
Mrs. Jorgensen is a 74-year-old female with a history of severe chronic obstructive lung disease, history of coronary artery disease, atrial fibrillation who presented to the emergency room with symptoms of progressive dyspnea with a severe exacerbation of COPD and evidence of pneumonia. She is feeling better today. She continued to be in atrial fibrillation with episode of rapid ventricular response. Anticoagulation has been restarted. She denies any chest discomfort. She is coughing, but nonproductive at this point. She continues to be at this time on aspirin once a day, Lipitor 20 mg daily, digoxin 0.125 mg daily, diltiazem 60 mg 3 times a day, Lopressor 25 mg 3 times a day, losartan 50 mg daily, Lasix 40 mg daily, Protonix in addition to Coumadin, prednisone and her inhalers as well as her steroids. PHYSICAL EXAMINATION: Blood pressure running in the 120s to 160s with the heart rate in the low one teens up to the 160s. LUNGS: With decreased air exchange with scattered wheezes but improved compared with yesterday. HEART: Irregular, irregular. S1, S2. No S3. No rub. ABDOMEN: Soft, nontender. EXTREMITIES: Trace edema. Lab data revealed an of INR 1.3. BUN and creatinine 26 and 0.5. Potassium 4.2. Hemoglobin of 12.7. White blood cell of 18.6, improved compared with yesterday. Her chest x-ray shows the infiltrate consistent with her pneumonia. IMPRESSION: 1. Pneumonia with exacerbation of chronic obstructive pulmonary disease. 2. Atrial fibrillation, chronic, with rapid ventricular response. 3. History of coronary artery disease. 4. History of hypertension. 5. Hyperlipidemia. 6. History of chronic tobacco use. 7. Diabetes mellitus. RECOMMENDATIONS: I will increase the dose of her calcium channel kelly. Continue on the present dose of beta kelly. We will continue anticoagulation and diuresis. The rapid ventricular response is response to her lung status. Will follow her rhythm and depending on that, further recommendations will be made.
[2016-11-25 09:59] LABS: Glucose,Whole Blood 264 mg/dL (75-99)
[2016-11-25 12:08] LABS: Glucose,Whole Blood 303 mg/dL (75-99)
[2016-11-25 12:39] LABS: Hemoglobin A1C 7.3 % (4.2-6.1)
[2016-11-25] MEDS: INSULIN LISPRO (humaLOG) 300 UNIT/3 ML VIAL SQ SCH ×3 (12:53→20:46)
--- NOTE | 2016-11-25 13:53 | PN ---
CHIEF COMPLAINT: Congestive heart failure, pneumonitis, COPD, atrial fibrillation. HISTORY OF PRESENT ILLNESS: This lady is doing a little bit better and breathing little bit more easily every day. Sitting up in a chair, eating now and she is awaiting bed on telemetry. REVIEW OF SYSTEMS: She has had no chest pain, chills, fever, increased shortness of breath, etc. She has had no nausea. PHYSICAL EXAM: Chest demonstrates poor breath sounds with persistent wheezes, rales, and rhonchi, but she is improved. Cardiac exam demonstrates tachycardia with atrial fibrillation. IMPRESSION: 1. Congestive heart failure. 2. Chronic obstructive pulmonary disease. 3. Reactive airway disease. 4. Pneumonitis. PLAN: Move to telemetry.
[2016-11-25] MEDS ORDERED: INSULIN GLARGINE 100 UNIT/ML 10 ML VIAL SQ ONE (14:30)
[2016-11-25 16:42] LABS: Glucose,Whole Blood 239 mg/dL (75-99)
[2016-11-25] MEDS: AZITHROMYCIN 500 MG TAB PO SCH (17:23)
--- NOTE | 2016-11-25 17:38 | P.PN ---
Subjective 71-year-old female patient with advanced COPD, chronic hypoxic respiratory failure, was seen Dr. Galvan in the past and currently is interested in switching services. The patient is also known to have coronary artery disease, chronic atrial fibrillation and she is morbidly obese and she has been treated for hypertension hyperlipidemia and she has been on long-term anticoagulation for chronic atrial fibrillation. The patient presented yesterday to the emergency department because of worsening shortness of breath. She was having increased cough chest congestion and wheezing. A chest x-ray was done and showed a lingular consolidation/ pneumonia. The patient was also found to be in atrial fibrillation with rapid ventricle response and she was also toxic on her Coumadin. As such, the patient was admitted to the intensive care unit where she was started on a broad -spectrum antibiotics. She is currently on a Cardizem drip for rate control and Cardizem drip is running at 50 mg an hour. She was given a dose of digoxin by cardiology to achieve a better rate control. She was given vitamin K for her coagulopathy and subsequent INR is down to 5. No signs of any acute bleeding at this point. No change in mental status. She was having some chest congestion and chest discomfort over the left anterior chest area which corresponds to her lingular pneumonia. No swelling in lower extremities. No nausea. No vomiting. No abdominal pain. No diarrhea. No other complaints otherwise for now. On 11/23/2016 the patient is being seen in follow-up. The patient is still antibiotics regarding her lingular pneumonia. The patient is receiving Rocephin and Zithromax. She is still on a Cardizem drip for rate control and she is still on 50 mg an hour of Cardizem drip. She is doing well. No specific complaints pH is less short of breath. She was given a dose of Lasix and she diuresed more than liter earlier this morning. No nausea. No vomiting. No emesis. Chest x-ray showing stable consolidation of the lingula, probably somewhat better compared to yesterday. The patient's coagulopathy has been reversed and the patient will be restarted back on anticoagulation. No mental status change. No other new complaints otherwise for now. On 11/24/2016, the patient is being seen in follow-up. The patient remains in the intensive care unit for a lingular pneumonia. Today's chest x-ray shows some limited improvement in the left left lung consolidation. Nevertheless, the patient clinically is improved. A chest patient's other better control and the patient was taken off the Cardizem drip and she was started on verapamil orally which is providing adequate rate control. The patient is also being gradually and to coag related regarding her chronic atrial fibrillation and his PT/INR is subtherapeutic. The patient is on a combination of DuoNeb nebulized treatments, IV Solu-Medrol, IV Teflaro and Zithromax. The patient was found to have MRSA in the sputum. The blood cultures negative for now. She is tolerating her diet. No change in mental status. No other complaints otherwise. On 11/25/2016 the patient is being seen in follow-up in the intensive care units. The patient is doing well. She has no specific complaints. She is being treated for a pneumonia of the lingula and there is MRSA in the sputum and the possibility of MRSA pneumonia was entertained and the patient is currently on a combination of Teflaro and Zithromax. She is still having difficulties in controlling atrial fibrillation. The patient has been on oral Cardizem the dose of which was increased up to 60 mg 4 times a day. The patient was also started on Lopressor 25 mg and the doses being given 3 times a day in conjunction with digoxin. Despite this, it was noted the patient's heart rate is going significantly elevated reaching up times to 1:30 with activity. She denies having any chest pain. No nausea. No vomiting. No abdominal pain. No change in mental status. She is on anticoagulation and INR is up to 1.3. Her white cell count is also improving and stop down to 18,000. I will be moving this patient out of the intensive care unit today. The chest x -ray from today shows slow improvement in the lingular consolidation/infiltrate. Objective - Vital Signs Vital signs: Vital Signs Temp 97.5 F L 11/25/16 15:30 Pulse 120 H 11/25/16 17:10 Resp 20 11/25/16 15:30 BP 151/75 11/25/16 15:30 Pulse Ox 94 L 11/25/16 15:30 Intake & Output 11/24/16 11/25/16 11/25/16 18:59 06:59 18:59 Intake Total 1549.203 514.340 280 Output Total 2250 350 500 Balance -700.797 164.340 -220 Weight 92.3 kg Intake: IV 470 240 280 Ceftaroline Fosamil 600 250 mg In Sodium Chloride 0.9 % 250 ml @ 250 mls/hr IVPB Q12HR [facility] Rx#: [id number] Sodium Chloride 0.9% 1, 220 240 280 000 ml @ 20 mls/hr IV . Q24H [facility] Rx#:[id number] Intake, IV Titration 79.203 34.340 0 Amount Insulin Regular 100 unit 79.203 34.340 0 In Sodium Chloride 0.9% 100 ml @ Per Protocol IV .Q0M [facility] Rx#:[id number] Oral 1000 240 Output: Urine 2250 350 500 Other: Voiding Method Toilet Toilet Toilet # Voids 1 1 1 - Exam Head exam was generally normal. There was no scleral icterus or corneal arcus. Mucous membranes were moist.neck is short and supple and there is significant crowding of the posterior pharynx. There is no with or neck masses. Lungs sounds are diminished bilaterally along with that there is some few scattered expiratory wheezes with crackles can be. Over the left anterior chest area. Heart sounds are irregular, positive S1-S2 and there is no significant murmurs appreciated. Overall heart sounds are distant. Abdomen is slightly distended soft and orders cannot be accurately palpated. There is no direct tenderness or rebound tenderness or guarding.Examination of the extremities revealed easily palpable radial, femoral and pedal pulses. There was no cyanosis, clubbing or edema. - Labs CBC & Chem 7: 11/25/16 04:27 11/25/16 04:27 Labs: Abnormal Lab Results - Last 24 Hours (Table) 11/24/16 11/24/16 11/24/16 Range/Units 18:49 19:53 21:13 WBC (3.8-10.6) k/uL Neutrophils # (1.3-7.7) k/uL Lymphocytes # (1.0-4.8) k/uL PT (9.0-12.0) sec BUN (7-17) mg/dL Creatinine (0.52-1.04) mg/dL Glucose (74-99) mg/dL POC Glucose (mg/dL) 165 H 196 H 179 H (75-99) mg/dL Hemoglobin A1c (4.2-6.1) % 11/24/16 11/24/16 11/25/16 Range/Units 22:14 22:54 00:02 WBC (3.8-10.6) k/uL Neutrophils # (1.3-7.7) k/uL Lymphocytes # (1.0-4.8) k/uL PT (9.0-12.0) sec BUN (7-17) mg/dL Creatinine (0.52-1.04) mg/dL Glucose (74-99) mg/dL POC Glucose (mg/dL) 193 H 168 H 180 H (75-99) mg/dL Hemoglobin A1c (4.2-6.1) % 11/25/16 11/25/16 11/25/16 Range/Units 01:37 02:31 03:14 WBC (3.8-10.6) k/uL Neutrophils # (1.3-7.7) k/uL Lymphocytes # (1.0-4.8) k/uL PT (9.0-12.0) sec BUN (7-17) mg/dL Creatinine (0.52-1.04) mg/dL Glucose (74-99) mg/dL POC Glucose (mg/dL) 144 H 150 H 125 H (75-99) mg/dL Hemoglobin A1c (4.2-6.1) % 11/25/16 11/25/16 11/25/16 Range/Units 04:07 04:27 04:27 WBC 18.6 H (3.8-10.6) k/uL Neutrophils # 16.7 H (1.3-7.7) k/uL Lymphocytes # 0.8 L (1.0-4.8) k/uL PT (9.0-12.0) sec BUN 26 H (7-17) mg/dL Creatinine 0.50 L (0.52-1.04) mg/dL Glucose 142 H (74-99) mg/dL POC Glucose (mg/dL) 135 H (75-99) mg/dL Hemoglobin A1c (4.2-6.1) % 11/25/16 11/25/16 11/25/16 Range/Units 04:27 04:27 04:53 WBC (3.8-10.6) k/uL Neutrophils # (1.3-7.7) k/uL Lymphocytes # (1.0-4.8) k/uL PT 13.1 H (9.0-12.0) sec BUN (7-17) mg/dL Creatinine (0.52-1.04) mg/dL Glucose (74-99) mg/dL POC Glucose (mg/dL) 127 H (75-99) mg/dL Hemoglobin A1c 7.3 H (4.2-6.1) % 11/25/16 11/25/16 11/25/16 Range/Units 06:58 08:11 09:58 WBC (3.8-10.6) k/uL Neutrophils # (1.3-7.7) k/uL Lymphocytes # (1.0-4.8) k/uL PT (9.0-12.0) sec BUN (7-17) mg/dL Creatinine (0.52-1.04) mg/dL Glucose (74-99) mg/dL POC Glucose (mg/dL) 141 H 107 H 264 H (75-99) mg/dL Hemoglobin A1c (4.2-6.1) % 11/25/16 11/25/16 Range/Units 12:07 16:35 WBC (3.8-10.6) k/uL Neutrophils # (1.3-7.7) k/uL Lymphocytes # (1.0-4.8) k/uL PT (9.0-12.0) sec BUN (7-17) mg/dL Creatinine (0.52-1.04) mg/dL Glucose (74-99) mg/dL POC Glucose (mg/dL) 303 H 239 H (75-99) mg/dL Hemoglobin A1c (4.2-6.1) % Assessment and Plan Plan: Impression 1 acute community-acquired lingular pneumonia with extensive consolidation of the lingular segment of the left lung On 11/23/2016, the patient is still on broad-spectrum antibiotics on a combination of Rocephin and Zithromax and the chest x-ray showing stable consolidation of the lingula, probably some slight improvement compared to yesterday. On 11/24/2016, there is a consideration for an MRSA pneumonia. The patient sputum has shown MRSA and the patient is currently on a combination of Teflaro and Zithromax. Rocephin was discontinued. Today chest a shows some modest improvement in the left lung consolidation. On 11/25/2016, the patient is still being treated for numerous a pneumonia. Antibiotic coverage is the same. Chest x-ray shows slow improvement in the white cell count has dropped down to 18,000. She is afebrile and she is hemodynamically stable. No major respiratory distress. The patient is currently on 2 L of oxygen by nasal cannula her saturations around 94%. She was also taken off the IV Solu-Medrol and started on a prednisone burst taper starting with 40 mg daily basis. 2 acute COPD exacerbation secondary to above, the patient has advanced COPD at baseline and she is demented on a combination of Advair and Spiriva. 3 chronic hypoxic respiratory failure 4 leukocytosis secondary to pneumonia, white cell count remains elevated. 5 chronic atrial fibrillation , currently on improved rate control and the patient was taken off the Cardizem drip and the patient was started on oral medications/Cardizem for rate control. The patient is also on oral metoprolol for rate control. 6 Coumadin toxicity, being reversed with vitamin K, follow-up INR today is 1.3 7 coronary artery disease with previous coronary intervention and stenting currently stable 8 diabetes mellitus 9 hypertension 10 hyperlipidemia 11 obstructive sleep apnea noncompliant to CPAP therapy 12 skin cancer resected 13 nicotine addiction/smoking. 14 macular degeneration Plan Continue Teflaro Zithromax. Oral Cardizem along with Lopressor and digoxin for rate control. Continue articulation with warfarin as long as the patient's PT/ INR is subtherapeutic. Oral Lasix. Oral prednisone burst taper. The patient came in moved out of the intensive care unit today and she'll be moved to a telemetry unit.
[2016-11-25] MEDS ORDERED: WARFARIN 5 MG TAB PO ONE (18:00)
[2016-11-25] MEDS: traZODone HCL 50 MG TAB PO SCH (20:47)
[2016-11-25 20:48] LABS: Glucose,Whole Blood 165 mg/dL (75-99)
[2016-11-25] MEDS: SODIUM CHLORIDE 0.9% 1,000 ML IV SCH (22:22)
[2016-11-26] MEDS: IPRATROPIUM-ALBUTEROL 3 ML NEB INHALATION PRN (04:14)
[2016-11-26 06:15] LABS: Glucose,Whole Blood 88 mg/dL (75-99)
[2016-11-26] MEDS: DILTIAZEM ORAL 60 MG TAB PO SCH (06:25)
[2016-11-26] MEDS: INSULIN LISPRO (humaLOG) 300 UNIT/3 ML VIAL SQ SCH ×4 (06:30→22:11)
[2016-11-26 06:46] LABS: Anion Gap 8 mmol/L; Blood Urea Nitrogen 23 mg/dL (7-17); Calcium 9.1 mg/dL (8.4-10.2); Carbon Dioxide 31 mmol/L (22-30); Chloride 100 mmol/L (98-107); Glucose 98 mg/dL (74-99); Magnesium 2.2 mg/dL (1.6-2.3); Non-African American GFR(MDRD) >60 (>60 ml/min/1.73 sqM); Phosphorous 3.1 mg/dL (2.5-4.5); Sodium 139 mmol/L (137-145)
[2016-11-26 06:53] LABS: INR 1.6 (<1.1); Prothrombin Time 15.9 sec (9.0-12.0)
[2016-11-26 07:23] LABS: Basophils % (A) 0 %; CH 30.2; CHCM 31.9; Eosinophils # (A) 0.1 k/uL (0-0.7); Eosinophils % (A) 1 %; HCT 40.8 % (34.0-46.0); HDW 2.38; HGB 12.7 gm/dL (11.4-16.0); Luc # (Auto) 0.19; Luc % (Auto) 2; Lymphocytes # (A) 1.9 k/uL (1.0-4.8); Lymphocytes % (A) 16 %; MCH 29.6 pg (25.0-35.0); MCHC 31.2 g/dL (31.0-37.0); MCV 94.8 fL (80.0-100.0); Mean Platelet Volume 7.2; Monocytes # (A) 0.9 k/uL (0-1.0); Monocytes % (A) 7 %; Neutrophils # (A) 9.1 k/uL (1.3-7.7); Neutrophils % (A) 74 %; RDW 12.8 % (11.5-15.5); WBC 12.2 k/uL (3.8-10.6); WBC (Perox) 12.06
[2016-11-26] MEDS: ALPRAZolam 0.5 MG TAB PO PRN ×3 (08:18→22:25)
[2016-11-26] MEDS: VARENICLINE 1 MG TAB PO SCH ×2 (08:19→17:48)
[2016-11-26] MEDS: ATORVASTATIN 20 MG TAB PO SCH (08:19)
[2016-11-26] MEDS: ASPIRIN 81 MG CHEW PO SCH (08:19)
[2016-11-26] MEDS: FERROUS SULFATE 325 MG TAB PO SCH ×3 (08:20→22:11)
[2016-11-26] MEDS: DOCUSATE 100 MG CAP PO SCH ×2 (08:20→22:10)
[2016-11-26] MEDS: DIGOXIN 125 MCG TAB PO SCH (08:20)
[2016-11-26] MEDS: CEFTAROLINE FOSAMIL 600 MG in SODIUM CHLORIDE 0.9% 250 ML IVPB SCH ×2 (08:20→22:12)
[2016-11-26] MEDS: INSULIN GLARGINE 100 UNIT/ML 10 ML VIAL SQ SCH (08:21)
[2016-11-26] MEDS: FUROSEMIDE 40 MG TAB PO SCH (08:21)
[2016-11-26] MEDS: LOSARTAN 50 MG TAB PO SCH (08:21)
[2016-11-26] MEDS: METOPROLOL TARTRATE 25 MG TAB PO SCH ×3 (08:22→22:10)
[2016-11-26] MEDS: MELOXICAM 7.5 MG TAB PO SCH (08:22)
[2016-11-26] MEDS: predniSONE 20 MG TAB PO SCH (08:22)
[2016-11-26] MEDS: PANTOPRAZOLE 40 MG TABLET PO SCH (08:22)
[2016-11-26] MEDS: OXYBUTYNIN XL 5 MG TAB.ER.24 PO SCH (08:22)
[2016-11-26] MEDS: IPRATROPIUM-ALBUTEROL 3 ML NEB INHALATION SCH ×3 (08:34→19:23)
[2016-11-26] MEDS ORDERED: DILTIAZEM ORAL 30 MG TAB PO SCH (10:45)
--- NOTE | 2016-11-26 11:49 | PN ---
Mrs. Jorgensen is a 71-year-old female with known history of severe chronic obstructive lung disease, history of atrial fibrillation, history of coronary artery disease, who presented with exacerbation of COPD and pneumonia. She is feeling better this morning. Her breathing is better. She continues in atrial fibrillation with episode of rapid ventricular response. She has no symptoms of chest discomfort. She denies any dizziness. She denies any nausea. She continues to be on metoprolol tartrate 25 mg 3 times a day, aspirin, Lipitor 20 mg daily, digoxin 0.125 mg daily, diltiazem 60 mg 4 times a day, Lasix 40 mg daily, losartan 50 mg daily, Coumadin. PHYSICAL EXAMINATION: Blood pressure 142/80 with a heart rate in the 110 to 120. LUNGS: Scattered wheezes bilaterally, improved air exchange. HEART: Irregularly irregular. S1, S2, no S3, no rub. ABDOMEN: Soft, nontender, obese. EXTREMITIES: Trace to 1+ edema. Lab data revealed BUN and creatinine 23 and 0.58. Potassium 4.0, INR 1.6. IMPRESSION: 1. Pneumonia. 2. Severe chronic obstructive lung disease. 3. Atrial fibrillation with difficulty controlling her ventricular response. 4. History of coronary artery disease. 5. Hyperlipidemia. 6. Hypertension. RECOMMENDATION: I will increase her diltiazem to 90 mg 4 times a day, continue on the Coumadin. Depending on her progress, further recommendation will be made.
[2016-11-26] MEDS ORDERED: ERGOCALCIFEROL 50,000 UNIT CAP PO SCH (12:00)
[2016-11-26 12:07] LABS: Glucose,Whole Blood 198 mg/dL (75-99)
[2016-11-26] MEDS: DILTIAZEM ORAL 30 MG TAB PO SCH ×3 (12:16→22:11)
[2016-11-26 16:57] LABS: Glucose,Whole Blood 252 mg/dL (75-99)
--- NOTE | 2016-11-26 17:24 | P.PN ---
Subjective 71-year-old female patient with advanced COPD, chronic hypoxic respiratory failure, was seen Dr. Galvan in the past and currently is interested in switching services. The patient is also known to have coronary artery disease, chronic atrial fibrillation and she is morbidly obese and she has been treated for hypertension hyperlipidemia and she has been on long-term anticoagulation for chronic atrial fibrillation. The patient presented yesterday to the emergency department because of worsening shortness of breath. She was having increased cough chest congestion and wheezing. A chest x-ray was done and showed a lingular consolidation/ pneumonia. The patient was also found to be in atrial fibrillation with rapid ventricle response and she was also toxic on her Coumadin. As such, the patient was admitted to the intensive care unit where she was started on a broad -spectrum antibiotics. She is currently on a Cardizem drip for rate control and Cardizem drip is running at 50 mg an hour. She was given a dose of digoxin by cardiology to achieve a better rate control. She was given vitamin K for her coagulopathy and subsequent INR is down to 5. No signs of any acute bleeding at this point. No change in mental status. She was having some chest congestion and chest discomfort over the left anterior chest area which corresponds to her lingular pneumonia. No swelling in lower extremities. No nausea. No vomiting. No abdominal pain. No diarrhea. No other complaints otherwise for now. On 11/23/2016 the patient is being seen in follow-up. The patient is still antibiotics regarding her lingular pneumonia. The patient is receiving Rocephin and Zithromax. She is still on a Cardizem drip for rate control and she is still on 50 mg an hour of Cardizem drip. She is doing well. No specific complaints pH is less short of breath. She was given a dose of Lasix and she diuresed more than liter earlier this morning. No nausea. No vomiting. No emesis. Chest x-ray showing stable consolidation of the lingula, probably somewhat better compared to yesterday. The patient's coagulopathy has been reversed and the patient will be restarted back on anticoagulation. No mental status change. No other new complaints otherwise for now. On 11/24/2016, the patient is being seen in follow-up. The patient remains in the intensive care unit for a lingular pneumonia. Today's chest x-ray shows some limited improvement in the left left lung consolidation. Nevertheless, the patient clinically is improved. A chest patient's other better control and the patient was taken off the Cardizem drip and she was started on verapamil orally which is providing adequate rate control. The patient is also being gradually and to coag related regarding her chronic atrial fibrillation and his PT/INR is subtherapeutic. The patient is on a combination of DuoNeb nebulized treatments, IV Solu-Medrol, IV Teflaro and Zithromax. The patient was found to have MRSA in the sputum. The blood cultures negative for now. She is tolerating her diet. No change in mental status. No other complaints otherwise. On 11/25/2016 the patient is being seen in follow-up in the intensive care units. The patient is doing well. She has no specific complaints. She is being treated for a pneumonia of the lingula and there is MRSA in the sputum and the possibility of MRSA pneumonia was entertained and the patient is currently on a combination of Teflaro and Zithromax. She is still having difficulties in controlling atrial fibrillation. The patient has been on oral Cardizem the dose of which was increased up to 60 mg 4 times a day. The patient was also started on Lopressor 25 mg and the doses being given 3 times a day in conjunction with digoxin. Despite this, it was noted the patient's heart rate is going significantly elevated reaching up times to 1:30 with activity. She denies having any chest pain. No nausea. No vomiting. No abdominal pain. No change in mental status. She is on anticoagulation and INR is up to 1.3. Her white cell count is also improving and stop down to 18,000. I will be moving this patient out of the intensive care unit today. The chest x -ray from today shows slow improvement in the lingular consolidation/infiltrate. On 11/26/2016 the patient is being seen in follow-up. No follow-up chest x-ray was done from today. Nevertheless the patient was having slow but ongoing improvement and MRSA pneumonia of the left lung/lingula. No fever. No chills. The white cell count is down to 12. The patient is being gradually and it admitted with warfarin the patient's INR is up to 1.6. Rest of the electrodes are within normal limits. The patient has no specific complaints. Objective - Vital Signs Vital signs: Vital Signs Temp 97.8 F 11/26/16 15:45 Pulse 78 11/26/16 15:45 Resp 24 11/26/16 15:45 BP 147/85 11/26/16 15:45 Pulse Ox 93 L 11/26/16 15:45 Intake & Output 11/25/16 11/26/16 11/26/16 18:59 06:59 18:59 Intake Total 520 490 240 Output Total 500 Balance 20 490 240 Weight 88.9 kg Intake: IV 280 240 Sodium Chloride 0.9% 1, 280 240 000 ml @ 20 mls/hr IV . Q24H [facility] Rx#:[id number] Intake, IV Titration 0 250 Amount Ceftaroline Fosamil 600 250 mg In Sodium Chloride 0.9 % 250 ml @ 250 mls/hr IVPB Q12HR [facility] Rx#: [id number] Insulin Regular 100 unit 0 In Sodium Chloride 0.9% 100 ml @ Per Protocol IV .Q0M [facility] Rx#:[id number] Oral 240 240 Output: Urine 500 Other: Voiding Method Toilet Toilet Toilet # Voids 2 3 3 # Bowel Movements 0 0 - Exam Head exam was generally normal. There was no scleral icterus or corneal arcus. Mucous membranes were moist.neck is short and supple and there is significant crowding of the posterior pharynx. There is no with or neck masses. Lungs sounds are diminished bilaterally along with that there is some few scattered expiratory wheezes with crackles can be. Over the left anterior chest area. Heart sounds are irregular, positive S1-S2 and there is no significant murmurs appreciated. Overall heart sounds are distant. Abdomen is slightly distended soft and orders cannot be accurately palpated. There is no direct tenderness or rebound tenderness or guarding.Examination of the extremities revealed easily palpable radial, femoral and pedal pulses. There was no cyanosis, clubbing or edema. - Labs CBC & Chem 7: 11/26/16 06:13 11/26/16 06:13 Labs: Abnormal Lab Results - Last 24 Hours (Table) 11/25/16 11/26/16 11/26/16 Range/Units 20:41 06:13 06:13 WBC 12.2 H (3.8-10.6) k/uL Neutrophils # 9.1 H (1.3-7.7) k/uL PT (9.0-12.0) sec Carbon Dioxide 31 H (22-30) mmol/L BUN 23 H (7-17) mg/dL POC Glucose (mg/dL) 165 H (75-99) mg/dL 11/26/16 11/26/16 11/26/16 Range/Units 06:13 11:52 16:50 WBC (3.8-10.6) k/uL Neutrophils # (1.3-7.7) k/uL PT 15.9 H (9.0-12.0) sec Carbon Dioxide (22-30) mmol/L BUN (7-17) mg/dL POC Glucose (mg/dL) 198 H 252 H (75-99) mg/dL Assessment and Plan Plan: Impression 1 acute community-acquired lingular pneumonia with extensive consolidation of the lingular segment of the left lung On 11/23/2016, the patient is still on broad-spectrum antibiotics on a combination of Rocephin and Zithromax and the chest x-ray showing stable consolidation of the lingula, probably some slight improvement compared to yesterday. On 11/24/2016, there is a consideration for an MRSA pneumonia. The patient sputum has shown MRSA and the patient is currently on a combination of Teflaro and Zithromax. Rocephin was discontinued. Today chest a shows some modest improvement in the left lung consolidation. On 11/25/2016, the patient is still being treated for numerous a pneumonia. Antibiotic coverage is the same. Chest x-ray shows slow improvement in the white cell count has dropped down to 18,000. She is afebrile and she is hemodynamically stable. No major respiratory distress. The patient is currently on 2 L of oxygen by nasal cannula her saturations around 94%. She was also taken off the IV Solu-Medrol and started on a prednisone burst taper starting with 40 mg daily basis. On 11/26/2016 the patient remains stable as being treated for a lingular MRSA pneumonia. Antibiotic coverage will be kept the same and the patient continues to be on Teflaro and Zithromax. 2 acute COPD exacerbation secondary to above, the patient has advanced COPD at baseline and she is demented on a combination of Advair and Spiriva. 3 chronic hypoxic respiratory failure 4 leukocytosis secondary to pneumonia, white cell count remains elevated. 5 chronic atrial fibrillation , currently on improved rate control and the patient was taken off the Cardizem drip and the patient was started on oral medications/Cardizem for rate control. The patient is also on oral metoprolol for rate control. 6 Coumadin toxicity, being reversed with vitamin K, follow-up INR today is 1.3 7 coronary artery disease with previous coronary intervention and stenting currently stable 8 diabetes mellitus 9 hypertension 10 hyperlipidemia 11 obstructive sleep apnea noncompliant to CPAP therapy 12 skin cancer resected 13 nicotine addiction/smoking. 14 macular degeneration Plan Continue Teflaro and Zithromax. Oral Cardizem along with Lopressor and digoxin for rate control. Continue anticoagulation with warfarin as long as the patient 's PT/INR is subtherapeutic. Oral Lasix. Oral prednisone burst taper. Ablate this patient the hallway. Repeat chest x-ray in the morning. We'll continue to follow.
[2016-11-26] MEDS: AZITHROMYCIN 500 MG TAB PO SCH (17:48)
[2016-11-26] MEDS: SODIUM CHLORIDE 0.9% 1,000 ML IV SCH (17:49)
[2016-11-26] MEDS ORDERED: WARFARIN 5 MG TAB PO ONE (18:00)
[2016-11-26 21:14] LABS: Glucose,Whole Blood 159 mg/dL (75-99)
[2016-11-26] MEDS: traZODone HCL 50 MG TAB PO SCH (22:26)
[2016-11-27 06:35] LABS: Glucose,Whole Blood 96 mg/dL (75-99)
[2016-11-27 06:38] LABS: INR 2.2 (<1.1); Prothrombin Time 21.4 sec (9.0-12.0)
[2016-11-27] MEDS: INSULIN LISPRO (humaLOG) 300 UNIT/3 ML VIAL SQ SCH ×4 (06:44→21:36)
[2016-11-27 06:46] LABS: Anion Gap 9 mmol/L; Blood Urea Nitrogen 22 mg/dL (7-17); Carbon Dioxide 28 mmol/L (22-30); Chloride 101 mmol/L (98-107); Glucose 110 mg/dL (74-99); Non-African American GFR(MDRD) >60 (>60 ml/min/1.73 sqM); Potassium 4.2 mmol/L (3.5-5.1); Sodium 138 mmol/L (137-145)
--- NOTE | 2016-11-27 07:48 | XR ---
EXAMINATION TYPE: XR chest 2V DATE OF EXAM: 11/27/2016 6:36 AM COMPARISON: Prior chest x-ray 25 November 2016 HISTORY: Lingular pneumonia TECHNIQUE: Frontal and lateral views of the chest are obtained. FINDINGS: There is some improvement in aeration in the lingula, left lower lobe. No other interval c hange. IMPRESSION: Improvement in aeration
[2016-11-27] MEDS: IPRATROPIUM-ALBUTEROL 3 ML NEB INHALATION SCH ×3 (08:50→20:00)
[2016-11-27] MEDS: DILTIAZEM ORAL 30 MG TAB PO SCH ×4 (09:29→20:23)
[2016-11-27] MEDS: FUROSEMIDE 40 MG TAB PO SCH ×2 (09:29→16:29)
[2016-11-27] MEDS: VARENICLINE 1 MG TAB PO SCH ×2 (09:29→17:37)
[2016-11-27] MEDS: DOCUSATE 100 MG CAP PO SCH ×2 (09:29→20:22)
[2016-11-27] MEDS: MELOXICAM 7.5 MG TAB PO SCH (09:30)
[2016-11-27] MEDS: ASPIRIN 81 MG CHEW PO SCH (09:31)
[2016-11-27] MEDS: FERROUS SULFATE 325 MG TAB PO SCH ×3 (09:31→20:23)
[2016-11-27] MEDS: OXYBUTYNIN XL 5 MG TAB.ER.24 PO SCH (09:31)
[2016-11-27] MEDS: DIGOXIN 125 MCG TAB PO SCH (09:32)
[2016-11-27] MEDS: PANTOPRAZOLE 40 MG TABLET PO SCH (09:34)
[2016-11-27] MEDS: CEFTAROLINE FOSAMIL 600 MG in SODIUM CHLORIDE 0.9% 250 ML IVPB SCH ×2 (09:34→20:28)
--- NOTE | 2016-11-27 09:37 | P.PN ---
Subjective 71-year-old female being seen this morning on rounds with the attending. Did note the patient's heart rate is up 170 atrial fibrillation. INR this morning 2.2. Patients being followed by pulmonary and cardiology service. Patients being treated for ongoing improvement of MRSA pneumonia on the left lung. Also episodes of persistent atrial fibrillation with RVR. The blood sugar this morning was 96 the high was 252 at 5:00 yesterday evening patient currently is sitting up in the bed slightly dyspneic with conversation nasal cannula at 3 L sats are documented 94 Chest x-ray obtained this morning the report reads some improvement noted in the left lower lobe no interval change Objective - Vital Signs Vital signs: Vital Signs Temp 96.8 F L 11/26/16 20:00 Pulse 94 11/27/16 09:00 Resp 20 11/27/16 04:00 BP 147/95 11/27/16 04:00 Pulse Ox 95 11/27/16 04:00 Intake & Output 11/26/16 11/27/16 11/27/16 18:59 06:59 18:59 Intake Total 480 180 Balance 480 180 Weight 99 kg Intake: Oral 480 180 Other: Voiding Method Toilet Toilet # Voids 3 1 - Exam Physical exam 71-year-old female sitting up in bed does not appear in any acute distress. Pleasant oriented 3 states feels slightly short of breath Lungs posterior diminished at the bases bilaterally with a few scattered expiratory wheezing noted no cough noted Heart S1-S2 audible irregular monitor current atrial fibrillation with a rapid ventricular response heart rate 170 Abdomen soft nontender reports no nausea vomiting no palpable organomegaly no frequent stooling no difficulty in urinating Extremities no edema noted - Labs CBC & Chem 7: 11/26/16 06:13 11/27/16 05:54 Labs: Abnormal Lab Results - Last 24 Hours (Table) 11/26/16 11/26/16 11/26/16 Range/Units 11:52 16:50 21:07 PT (9.0-12.0) sec BUN (7-17) mg/dL Creatinine (0.52-1.04) mg/dL Glucose (74-99) mg/dL POC Glucose (mg/dL) 198 H 252 H 159 H (75-99) mg/dL 11/27/16 11/27/16 Range/Units 05:54 05:54 PT 21.4 H (9.0-12.0) sec BUN 22 H (7-17) mg/dL Creatinine 0.40 L (0.52-1.04) mg/dL Glucose 110 H (74-99) mg/dL POC Glucose (mg/dL) (75-99) mg/dL Assessment and Plan Plan: Impression Present on admission atrial fibrillation with a rapid ventricular response suspect exacerbated by underlying pneumonia Acute Community acquired lingular pneumonia with extensive consolidation of the lingular segment of the left lung Acute on chronic hypoxic respiratory failure multifactorial likely due to an exacerbation of COPD with community acquired lingular pneumonia Chronic atrial fibrillation with episodes of rapid ventricular response Present on admission Coumadin toxicity INR 10 corrected resolving Coronary artery disease with prior coronary stenting type 2 diabetes insulin requiring Episodes of hyperglycemia likely due to steroids Essential Hypertension Present on admission Leukocytosis likely due to pneumonia Chronic nicotine dependency greater than a 40 year history down to 4-5 cigarettes a day Chronic physical debility due to comorbidities Episodes of chest discomfort likely due to respiratory no evidence of acute coronary syndrome Plan Continue recommendations by pulmonology service defer to Continue recommendations by cardiology service defer to DVT and GI prophylaxis Monitor blood sugars address per protocol Continue to reinforce smoking cessation information patient advised to stop smoking Respiratory treatments as ordered Further recommendations pending Lantus 30 units at bedtime and monitor blood sugars Check a dig level repeat labs in the morning The above dictated assessment and findings were discussed with dr david Rogers and the plan of care have been dictated as directed. Nancy Nobles nurse practitioner acting as a scribe for dr hernandez
[2016-11-27] MEDS: INSULIN GLARGINE 100 UNIT/ML 10 ML VIAL SQ SCH (09:39)
[2016-11-27] MEDS: ALPRAZolam 0.25 MG TAB PO PRN ×2 (09:39→16:24)
--- NOTE | 2016-11-27 09:45 | PN ---
CHIEF COMPLAINT: CHF, and reactive airway disease. HISTORY OF PRESENT ILLNESS: This lady is doing better. She is less short of breath all the time. PHYSICAL EXAMINATION: Chest is improving but she still has rales and wheezes throughout. CARDIAC: Normal. ABDOMEN: Soft, nontender. IMPRESSION: 1. Congestive heart failure. 2. Chronic obstructive pulmonary disease. 3. Asthma. PLAN: Continue with program and try to increase activity.
[2016-11-27 11:33] LABS: Glucose,Whole Blood 120 mg/dL (75-99)
[2016-11-27] MEDS: ATORVASTATIN 20 MG TAB PO SCH (11:55)
--- NOTE | 2016-11-27 13:13 | P.PN ---
Subjective Principal diagnosis: Acute left lower lobe pneumonia secondary to MRSA 71-year-old female patient with advanced COPD, chronic hypoxic respiratory failure, was seen Dr. Galvan in the past and currently is interested in switching services. The patient is also known to have coronary artery disease, chronic atrial fibrillation and she is morbidly obese and she has been treated for hypertension hyperlipidemia and she has been on long-term anticoagulation for chronic atrial fibrillation. The patient presented yesterday to the emergency department because of worsening shortness of breath. She was having increased cough chest congestion and wheezing. A chest x-ray was done and showed a lingular consolidation/ pneumonia. The patient was also found to be in atrial fibrillation with rapid ventricle response and she was also toxic on her Coumadin. As such, the patient was admitted to the intensive care unit where she was started on a broad -spectrum antibiotics. She is currently on a Cardizem drip for rate control and Cardizem drip is running at 50 mg an hour. She was given a dose of digoxin by cardiology to achieve a better rate control. She was given vitamin K for her coagulopathy and subsequent INR is down to 5. No signs of any acute bleeding at this point. No change in mental status. She was having some chest congestion and chest discomfort over the left anterior chest area which corresponds to her lingular pneumonia. No swelling in lower extremities. No nausea. No vomiting. No abdominal pain. No diarrhea. No other complaints otherwise for now. On 11/23/2016 the patient is being seen in follow-up. The patient is still antibiotics regarding her lingular pneumonia. The patient is receiving Rocephin and Zithromax. She is still on a Cardizem drip for rate control and she is still on 50 mg an hour of Cardizem drip. She is doing well. No specific complaints pH is less short of breath. She was given a dose of Lasix and she diuresed more than liter earlier this morning. No nausea. No vomiting. No emesis. Chest x-ray showing stable consolidation of the lingula, probably somewhat better compared to yesterday. The patient's coagulopathy has been reversed and the patient will be restarted back on anticoagulation. No mental status change. No other new complaints otherwise for now. On 11/24/2016, the patient is being seen in follow-up. The patient remains in the intensive care unit for a lingular pneumonia. Today's chest x-ray shows some limited improvement in the left left lung consolidation. Nevertheless, the patient clinically is improved. A chest patient's other better control and the patient was taken off the Cardizem drip and she was started on verapamil orally which is providing adequate rate control. The patient is also being gradually and to coag related regarding her chronic atrial fibrillation and his PT/INR is subtherapeutic. The patient is on a combination of DuoNeb nebulized treatments, IV Solu-Medrol, IV Teflaro and Zithromax. The patient was found to have MRSA in the sputum. The blood cultures negative for now. She is tolerating her diet. No change in mental status. No other complaints otherwise. On 11/25/2016 the patient is being seen in follow-up in the intensive care units. The patient is doing well. She has no specific complaints. She is being treated for a pneumonia of the lingula and there is MRSA in the sputum and the possibility of MRSA pneumonia was entertained and the patient is currently on a combination of Teflaro and Zithromax. She is still having difficulties in controlling atrial fibrillation. The patient has been on oral Cardizem the dose of which was increased up to 60 mg 4 times a day. The patient was also started on Lopressor 25 mg and the doses being given 3 times a day in conjunction with digoxin. Despite this, it was noted the patient's heart rate is going significantly elevated reaching up times to 1:30 with activity. She denies having any chest pain. No nausea. No vomiting. No abdominal pain. No change in mental status. She is on anticoagulation and INR is up to 1.3. Her white cell count is also improving and stop down to 18,000. I will be moving this patient out of the intensive care unit today. The chest x -ray from today shows slow improvement in the lingular consolidation/infiltrate. On 11/26/2016 the patient is being seen in follow-up. No follow-up chest x-ray was done from today. Nevertheless the patient was having slow but ongoing improvement and MRSA pneumonia of the left lung/lingula. No fever. No chills. The white cell count is down to 12. The patient is being gradually and it admitted with warfarin the patient's INR is up to 1.6. Rest of the electrodes are within normal limits. The patient has no specific complaints. On 11/27/2016, patient is feeling well from the pulmonary perspective, but she is complaining of being swollen and edematous. Retaining fluid in her face arms and lower extremities. Hence I have recommended Lasix. Chest x-ray was reviewed today, and it showed improvement in the left lower lobe aeration. Labs were reviewed, she had a relatively normal electrolytes and normal CBC white count is coming down nicely. INR is therapeutic at 2.2. Objective - Vital Signs Vital signs: Vital Signs Temp 96.9 F L 11/27/16 08:00 Pulse 132 H 11/27/16 12:00 Resp 16 11/27/16 12:00 BP 143/90 11/27/16 12:00 Pulse Ox 94 L 11/27/16 12:00 Intake & Output 11/26/16 11/27/16 11/27/16 18:59 06:59 18:59 Intake Total 480 180 Balance 480 180 Weight 99 kg Intake: Oral 480 180 Other: Voiding Method Toilet Toilet Toilet # Voids 3 1 - Exam Physical Exam: Revealed a 71-year-old female, obese, in no distress. Facial swelling was noted. HEENT:[Neck is supple.] [No neck masses.] [No thyromegaly.] [No JVD.] Chest: Diminished breath sounds at the bases no crackles or rhonchi or wheezes] Cardiac Exam: [Normal S1 and S2, no S3 gallop, no murmur.] Abdomen: [Soft, nontender, no megaly, no rebound, no guarding, normal bowel sounds.] Extremities: [No clubbing, 1+ bipedal edema, no cyanosis.] Neurological Exam: [No focal neurologic deficit.] - Labs CBC & Chem 7: 11/26/16 06:13 11/27/16 05:54 Labs: Abnormal Lab Results - Last 24 Hours (Table) 11/26/16 11/26/16 11/27/16 Range/Units 16:50 21:07 05:54 PT 21.4 H (9.0-12.0) sec BUN (7-17) mg/dL Creatinine (0.52-1.04) mg/dL Glucose (74-99) mg/dL POC Glucose (mg/dL) 252 H 159 H (75-99) mg/dL 11/27/16 11/27/16 Range/Units 05:54 11:32 PT (9.0-12.0) sec BUN 22 H (7-17) mg/dL Creatinine 0.40 L (0.52-1.04) mg/dL Glucose 110 H (74-99) mg/dL POC Glucose (mg/dL) 120 H (75-99) mg/dL Assessment and Plan Plan: 1 acute community-acquired lingular pneumonia with extensive consolidation of the lingular segment of the left lung On 11/23/2016, the patient is still on broad-spectrum antibiotics on a combination of Rocephin and Zithromax and the chest x-ray showing stable consolidation of the lingula, probably some slight improvement compared to yesterday. On 11/24/2016, there is a consideration for an MRSA pneumonia. The patient sputum has shown MRSA and the patient is currently on a combination of Teflaro and Zithromax. Rocephin was discontinued. Today chest a shows some modest improvement in the left lung consolidation. On 11/25/2016, the patient is still being treated for numerous a pneumonia. Antibiotic coverage is the same. Chest x-ray shows slow improvement in the white cell count has dropped down to 18,000. She is afebrile and she is hemodynamically stable. No major respiratory distress. The patient is currently on 2 L of oxygen by nasal cannula her saturations around 94%. She was also taken off the IV Solu-Medrol and started on a prednisone burst taper starting with 40 mg daily basis. On 11/26/2016 the patient remains stable as being treated for a lingular MRSA pneumonia. Antibiotic coverage will be kept the same and the patient continues to be on Teflaro and Zithromax. On 11/27 patient is noted to be improved, chest x-ray is improving, for the swelling got recommended adding Lasix. And order was placed on the chart. Cut down IV fluid at bit. 2 acute COPD exacerbation secondary to above, the patient has advanced COPD at baseline and she is demented on a combination of Advair and Spiriva. 3 chronic hypoxic respiratory failure 4 leukocytosis secondary to pneumonia, white cell count remains elevated. 5 chronic atrial fibrillation , currently on improved rate control and the patient was taken off the Cardizem drip and the patient was started on oral medications/Cardizem for rate control. The patient is also on oral metoprolol for rate control. 6 Coumadin toxicity, being reversed with vitamin K, follow-up INR today is 1.3 7 coronary artery disease with previous coronary intervention and stenting currently stable 8 diabetes mellitus 9 hypertension 10 hyperlipidemia 11 obstructive sleep apnea noncompliant to CPAP therapy 12 skin cancer resected 13 nicotine addiction/smoking. 14 macular degeneration Recommendation: Continue present treatment plan including antibiotics, diuretics , beta blockers and anticoagulants. Consider discharge planning in the next 24 hours. Time with Patient: Less than 30
--- NOTE | 2016-11-27 13:17 | P.PN ---
Subjective Principal diagnosis: Shortness of breath This is a 71-year-old female with known history of severe COPD, chronic persistent atrial fibrillation, coronary artery disease, who presented to the hospital with symptoms of shortness of breath with productive cough. She is currently being treated for exacerbation of COPD and pneumonia. Today patient states that she felt more short of breath that she did yesterday, overall her heart rate has been maintaining in the 90s, A. fib. Denies any chest discomfort. INR 2.2 today. Objective - Vital Signs Vital signs: Vital Signs Temp 96.9 F L 11/27/16 08:00 Pulse 132 H 11/27/16 12:00 Resp 16 11/27/16 12:00 BP 143/90 11/27/16 12:00 Pulse Ox 94 L 11/27/16 12:00 Intake & Output 11/26/16 11/27/16 11/27/16 18:59 06:59 18:59 Intake Total 480 180 Balance 480 180 Weight 99 kg Intake: Oral 480 180 Other: Voiding Method Toilet Toilet Toilet # Voids 3 1 - Exam PHYSICAL EXAMINATION: HEENT: Head is atraumatic, normocephalic. Pupils equal, round. Neck is supple. There is no elevated jugular venous pressure. HEART EXAMINATION: Heart S1 and S2 irregularly irregular CHEST EXAMINATION: Lungs reveal scattered wheezes throughout. ABDOMEN: Soft, obese, nontender. Bowel sounds are heard. No organomegaly noted. EXTREMITIES: 1+ peripheral pulses with 1+ evidence of peripheral edema and no calf tenderness noted. NEUROLOGIC patient is awake, alert and oriented -3. . - Labs CBC & Chem 7: 11/26/16 06:13 11/27/16 05:54 Labs: Abnormal Lab Results - Last 24 Hours (Table) 11/26/16 11/26/16 11/27/16 Range/Units 16:50 21:07 05:54 PT 21.4 H (9.0-12.0) sec BUN (7-17) mg/dL Creatinine (0.52-1.04) mg/dL Glucose (74-99) mg/dL POC Glucose (mg/dL) 252 H 159 H (75-99) mg/dL 11/27/16 11/27/16 Range/Units 05:54 11:32 PT (9.0-12.0) sec BUN 22 H (7-17) mg/dL Creatinine 0.40 L (0.52-1.04) mg/dL Glucose 110 H (74-99) mg/dL POC Glucose (mg/dL) 120 H (75-99) mg/dL Assessment and Plan (1) Chronic a-fib Status: Acute (2) CAD (coronary artery disease) Status: Acute (3) HTN (hypertension) Status: Acute (4) Hyperlipemia Status: Acute (5) Acute exacerbation of chronic obstructive airways disease Status: Acute (6) Left lower lobe pneumonia Status: Acute Plan: From cardiology's perspective, we will recommend to continue patient on her current medications. We will follow this patient along with you now on an as- needed basis only, please don't hesitate to call with any questions. DNP note has been reviewed, I agree with a documented findings and plan of care. Patient was seen and examined.
[2016-11-27 16:08] LABS: Glucose,Whole Blood 102 mg/dL (75-99)
[2016-11-27] MEDS: WARFARIN 5 MG TAB PO SCH (16:28)
[2016-11-27] MEDS: AZITHROMYCIN 500 MG TAB PO SCH (17:34)
[2016-11-27] MEDS: traZODone HCL 50 MG TAB PO SCH (20:23)
[2016-11-27] MEDS: METOPROLOL TARTRATE 50 MG TAB PO SCH (20:23)
[2016-11-27 20:59] LABS: Glucose,Whole Blood 140 mg/dL (75-99)
--- NOTE | 2016-11-27 21:01 | PN ---
CHIEF COMPLAINT: Congestive heart failure, arrhythmia and COPD. HISTORY OF PRESENT ILLNESS: This lady is still quite short of breath. It turns out that her ventricular response rate is up to 170 beats per minute. REVIEW OF SYSTEMS: She is not having any chest pain. She is not diaphoretic. PHYSICAL EXAMINATION: Head, ears, eyes, nose, mouth and throat are normal. Chest demonstrates decreased breath sounds throughout with rales at both bases. Cardiac exam demonstrates tachycardia with a rate of 170. ABDOMEN: Soft and nontender. EXTREMITIES: Normal. IMPRESSION: 1. Congestive heart failure. 2. Atrial fibrillation with rapid ventricular response. 3. Chronic obstructive pulmonary disease. PLAN: Change medication to increase beta kelly.
[2016-11-27] MEDS: IPRATROPIUM-ALBUTEROL 3 ML NEB INHALATION PRN (23:42)
[2016-11-28] MEDS: ALPRAZolam 0.25 MG TAB PO PRN ×2 (05:44→08:58)
[2016-11-28] MEDS: SODIUM CHLORIDE 0.9% 1,000 ML IV SCH (05:46)
[2016-11-28 06:35] LABS: INR 2.6 (<1.1); Prothrombin Time 25.3 sec (9.0-12.0)
[2016-11-28 06:40] LABS: Glucose,Whole Blood 192 mg/dL (75-99)
[2016-11-28] MEDS: INSULIN LISPRO (humaLOG) 300 UNIT/3 ML VIAL SQ SCH ×4 (06:40→21:15)
[2016-11-28 06:56] LABS: ALT 78 U/L (9-52); AST 15 U/L (14-36); Alkaline Phosphatase 77 U/L (38-126); Anion Gap 8 mmol/L; Blood Urea Nitrogen 18 mg/dL (7-17); Calcium 8.7 mg/dL (8.4-10.2); Carbon Dioxide 36 mmol/L (22-30); Chloride 93 mmol/L (98-107); Glucose 99 mg/dL (74-99); Non-African American GFR(MDRD) >60 (>60 ml/min/1.73 sqM); Potassium 3.9 mmol/L (3.5-5.1); Sodium 137 mmol/L (137-145); Total Bilirubin 0.3 mg/dL (0.2-1.3); Total Protein 5.2 g/dL (6.3-8.2)
[2016-11-28] MEDS: IPRATROPIUM-ALBUTEROL 3 ML NEB INHALATION SCH ×3 (07:50→19:41)
[2016-11-28] MEDS: VARENICLINE 1 MG TAB PO SCH ×2 (08:37→16:57)
[2016-11-28] MEDS: ATORVASTATIN 20 MG TAB PO SCH (08:41)
[2016-11-28] MEDS: ASPIRIN 81 MG CHEW PO SCH (08:41)
[2016-11-28] MEDS: DIGOXIN 125 MCG TAB PO SCH (08:41)
[2016-11-28] MEDS: predniSONE 10 MG TAB PO SCH (08:41)
[2016-11-28] MEDS: DILTIAZEM ORAL 30 MG TAB PO SCH ×4 (08:42→21:14)
[2016-11-28] MEDS: FERROUS SULFATE 325 MG TAB PO SCH ×3 (08:43→21:14)
[2016-11-28] MEDS: FUROSEMIDE 40 MG TAB PO SCH ×2 (08:43→21:14)
[2016-11-28] MEDS: DOCUSATE 100 MG CAP PO SCH ×2 (08:43→21:14)
[2016-11-28] MEDS: METOPROLOL TARTRATE 50 MG TAB PO SCH ×2 (08:44→21:14)
[2016-11-28] MEDS: MELOXICAM 7.5 MG TAB PO SCH (08:44)
[2016-11-28] MEDS: LOSARTAN 50 MG TAB PO SCH (08:44)
[2016-11-28] MEDS: OXYBUTYNIN XL 5 MG TAB.ER.24 PO SCH (08:45)
[2016-11-28] MEDS: PANTOPRAZOLE 40 MG TABLET PO SCH (08:45)
[2016-11-28] MEDS: INSULIN GLARGINE 100 UNIT/ML 10 ML VIAL SQ SCH (08:48)
[2016-11-28] MEDS: CEFTAROLINE FOSAMIL 600 MG in SODIUM CHLORIDE 0.9% 250 ML IVPB SCH ×2 (08:48→21:16)
[2016-11-28 10:14] VITALS: BMI 37.0
--- NOTE | 2016-11-28 11:02 | P.PN ---
Subjective 71-year-old female being seen this morning on rounds currently sitting up on the edge of the bed. Patient states breathing feels slightly improved. With coaching can use the incentive spirometer achieving 1000. Patients being followed by pulmonology and cardiology service defer to for recommendations. Pulmonary treating patient for lingular MRSA pneumonia with a positive sputum culture patient continues to be on zithromax and teflaro per recommendations of pulmonology. The blood sugars were reviewed currently on Lantus 30 daily with Humalog labs reviewed this morning and noted INR 2.6 Objective - Vital Signs Vital signs: Vital Signs Temp 97.1 F L 11/28/16 03:52 Pulse 116 H 11/28/16 08:06 Resp 18 11/28/16 03:52 BP 146/83 11/28/16 03:52 Pulse Ox 94 L 11/28/16 03:52 Intake & Output 11/27/16 11/28/16 11/28/16 18:59 06:59 18:59 Intake Total 402 790 100 Output Total 2 Balance 400 790 100 Weight 89 kg 89 kg Intake: IV 490 Ceftaroline Fosamil 600 250 mg In Sodium Chloride 0.9 % 250 ml @ 250 mls/hr IVPB Q12HR JULIÁN Rx#: [id number] Sodium Chloride 0.9% 1, 240 000 ml @ 20 mls/hr IV . Q24H JULI[facility]N Rx#:[id number] Oral 402 300 100 Output: Stool 2 Other: Voiding Method Toilet Toilet # Voids 1 1 - Exam Physical exam 71-year-old female sitting up on the edge of the bed pleasant alert oriented 3 appears in no acute distress Lungs posterior diminished at the bases upper airways bronchial breath sounds no cough noted nasal cannula 4 L sats 93% Heart S1-S2 audible irregular monitor currently A. fib heart rate 80s Abdomen soft nontender no reports of nausea vomiting Extremities a trace pedal edema bilaterally - Labs CBC & Chem 7: 11/26/16 06:13 11/28/16 06:01 Labs: Abnormal Lab Results - Last 24 Hours (Table) 11/27/16 11/27/16 11/27/16 Range/Units 11:32 16:06 20:58 PT (9.0-12.0) sec Chloride (98-107) mmol/L Carbon Dioxide (22-30) mmol/L BUN (7-17) mg/dL Creatinine (0.52-1.04) mg/dL POC Glucose (mg/dL) 120 H 102 H 140 H (75-99) mg/dL ALT (9-52) U/L Total Protein (6.3-8.2) g/dL Albumin (3.5-5.0) g/dL 11/28/16 11/28/16 11/28/16 Range/Units 06:01 06:01 06:40 PT 25.3 H (9.0-12.0) sec Chloride 93 L (98-107) mmol/L Carbon Dioxide 36 H (22-30) mmol/L BUN 18 H (7-17) mg/dL Creatinine 0.50 L (0.52-1.04) mg/dL POC Glucose (mg/dL) 192 H (75-99) mg/dL ALT 78 H (9-52) U/L Total Protein 5.2 L (6.3-8.2) g/dL Albumin 2.9 L (3.5-5.0) g/dL Assessment and Plan Plan: Impression Present on admission atrial fibrillation with a rapid ventricular response suspect exacerbated by underlying pneumonia with a positive sputum culture for MRSA MRSA pneumonia with extensive consolidation of the lingular segment of the left lung Acute on chronic hypoxic respiratory failure multifactorial likely due to an exacerbation of COPD with MRSA pneumonia Chronic atrial fibrillation with episodes of rapid ventricular response Present on admission Coumadin toxicity INR 10 corrected resolving Coronary artery disease with prior coronary stenting type 2 diabetes insulin requiring hemoglobin A1c 7.3 Episodes of hyperglycemia likely due to steroids Essential Hypertension Present on admission Leukocytosis likely due to pneumonia Chronic nicotine dependency greater than a 40 year history down to 4-5 cigarettes a day Chronic physical debility due to comorbidities Episodes of chest discomfort likely due to respiratory no evidence of acute coronary syndrome History of skin cancer resection Advanced COPD at baseline Anxiety disorder nonspecified Plan Continue recommendations by pulmonology service defer to Continue recommendations by cardiology service defer to DVT and GI prophylaxis Monitor blood sugars address per protocol Continue to reinforce smoking cessation information patient advised to stop smoking Continue Chantix 1 mg twice a day as ordered for smoking sensation Respiratory treatments as ordered Further recommendations pending Lantus 30 units at bedtime and monitor blood sugars Continue Cozaar 100 mg daily with Cardizem 90 4 times a day, Coumadin 5 mg daily The above dictated assessment and findings were discussed with dr ruthven Impression and the plan of care have been dictated as directed. Nancy Nobles nurse practitioner acting as a scribe for dr hernandez
--- NOTE | 2016-11-28 11:05 | P.CNPUL ---
History of Present Illness Consult date: 11/28/16 Requesting physician: Chuy Soliman Reason for consult: pneumonia History of present illness: This is a 71-year-old female patient with advanced COPD, chronic hypoxic respiratory failure and is well known in Dr. Galvan's office. Daughter stated there was some confusion on admission and she was ultimately admitted to Dr. Bustamante services and was never switched over to Dr. Galvan's so we are currently seeing her going forward per the request of the patient and daughter. The patient came in to the emergency department for worsening shortness of breath increased chest congestion and wheezing. Chest x-ray was completed and showed a consolidation pneumonia of the left lower lobe. The patient was also in atrial fibrillation with rapid ventricular response and it was noted that her Coumadin was at a toxic level, where she was given vitamin K for her coagulopathy. She has small shown no signs of bleeding. The patient wasn't admitted to the intensive care unit where she was started on broad-spectrum antibiotics and was put on a Cardizem drip for rate control. Since then the Cardizem drip has been switched over to an oral agent. Over the few days of her hospital stay she developed some bilateral lower extremity edema to which she was also given Lasix and that has decreased as well. Patient states overall she is feeling better and is able to ambulate with minimal shortness of breath. Review of Systems Complete review of system was done and is noncontributory, unremarkable except what is noted in the HPI Past Medical History Past Medical History: Atrial Fibrillation, Coronary Artery Disease (CAD), Cancer , COPD, Diabetes Mellitus, Eye Disorder, GERD/Reflux, Hyperlipidemia, Hypertension, Myocardial Infarction ([place]), Pneumonia, Sleep Apnea/CPAP/BIPAP Additional Past Medical History / Comment(s): Morbid obesity, chronic hypoxic respiratory failure, COPD, obstructive sleep apnea noncompliant to CPAP therapy , chronic atrial fibrillation and the patient has failed cardioversion in the past and she has been maintained on long-term anticoagulation she has also episodes of multifocal atrial tachycardia, previous coronary stenting regarding coronary artery disease, hypertension, hyperlipidemia, diabetes mellitus, macular degeneration, dysphagia, nicotine addiction/smoking the patient has been trying to quit smoking by utilization of Chantix, skin cancer involving the neck and the right cheek that was resected. Last Myocardial Infarction Date:: 2009 History of Any Multi-Drug Resistant Organisms: MRSA Date of last positivie culture/infection: 2/21/17 MDRO Source:: Sputum Past Surgical History: Back Surgery, Bladder Surgery, Heart Catheterization With Stent, Hysterectomy Additional Past Surgical History / Comment(s): right hand carpal tunnel release , aug 2016 had a growth removed from her "vocal cords" Past Anesthesia/Blood Transfusion Reactions: No Reported Reaction Date of Last Stent Placement:: 2009 Past Psychological History: Anxiety, Depression Smoking Status: Current every day smoker Past Alcohol Use History: None Reported Additional Past Alcohol Use History / Comment(s): TRYING TO QUIT, DOWN TO 4 CIGARETTES DAILY FROM 2PPD. STARTED SMOKING A TEEN Past Drug Use History: None Reported - Past Family History Mother Family Medical History: Cancer Additional Family Medical History / Comment(s): lung Brother(s) Family Medical History: Cancer Additional Family Medical History / Comment(s): lung Father Family Medical History: Congestive Heart Failure (CHF) Medications and Allergies Home Medications Medication Instructions Recorded Confirmed Type Albuterol Nebulized [Ventolin 2.5 mg INHALATION RT-Q4H PRN 06/28/16 11/21/16 History Nebulized] Atorvastatin [Lipitor] 20 mg PO DAILY 06/28/16 11/21/16 History Diltiazem Cd [Cardizem CD] 180 mg PO DAILY 06/28/16 11/21/16 History Ergocalciferol (Vitamin D2) 50,000 unit PO JOINER 06/28/16 11/21/16 History [Drisdol] Ferrous Sulfate [Iron (65 MG 325 mg PO TID 06/28/16 11/21/16 History Elemental)] Fluticasone/Salmeterol [Advair 1 puff INHALATION RT-BID PRN 06/28/16 11/21/16 History 500-50 Diskus] Losartan [Cozaar] 50 mg PO DAILY 06/28/16 11/21/16 History [place]-3 Acid Ethyl Esters [Lovaza] 1 gm PO DAILY 06/28/16 11/21/16 History Omeprazole [PriLOSEC] 20 mg PO DAILY 06/28/16 11/21/16 History Prochlorperazine [Compazine] 10 mg PO TID PRN 06/28/16 11/21/16 History Solifenacin Succinate [Vesicare] 10 mg PO DAILY 06/28/16 11/21/16 History Tiotropium 18 Mcg/Puff [Spiriva] 1 cap INHALATION RT-DAILY PRN 06/28/16 History diphenhydrAMINE HCL [Benadryl] 25 - 50 mg PO Q6H PRN 06/28/16 11/21/16 History metFORMIN HCL [Glucophage] 500 mg PO BID 06/28/16 11/21/16 History ALPRAZolam [Xanax] 0.25 mg PO TID PRN 11/21/16 11/21/16 History Aspirin [Adult Low Dose Aspirin EC] 81 mg PO DAILY 11/21/16 11/21/16 History Atorvastatin [Lipitor] 10 mg PO DAILY 11/21/16 11/21/16 History Celecoxib [CeleBREX] 100 mg PO DAILY 11/21/16 11/21/16 History Docusate Sodium [Dok] 100 mg PO BID 11/21/16 11/21/16 History Furosemide [Lasix] 40 mg PO DAILY 11/21/16 11/21/16 History Warfarin [Coumadin] 5 mg PO DAILY 11/21/16 11/21/16 History Allergies Allergy/AdvReac Type Severity Reaction Status Date / Time ciprofloxacin [From Cipro] Allergy Rash/Hives Verified 11/21/16 17:10 kiwi Allergy Rash/Hives Verified 11/21/16 17:10 Physical Exam Vitals: Vital Signs Temp Pulse Pulse Pulse Resp BP Pulse Ox 11/28/16 08:06 116 H 11/28/16 07:57 114 H 11/28/16 03:52 97.1 F L 62 18 146/83 94 L 11/28/16 00:05 97.1 F L 72 18 110/55 93 L 11/27/16 23:44 80 11/27/16 23:34 88 11/27/16 20:39 97.6 F 150 H 18 129/81 93 L 11/27/16 20:17 128 H 11/27/16 20:00 124 H 11/27/16 16:00 68 16 150/70 92 L 11/27/16 12:00 132 H 16 143/90 94 L Intake and Output 11/27/16 11/28/16 11/28/16 22:59 06:59 14:59 Intake Total 790 100 Output Total 1 Balance -1 790 100 Intake: IV 490 Ceftaroline Fosamil 600 250 mg In Sodium Chloride 0.9 % 250 ml @ 250 mls/hr IVPB Q12HR JULIÁN Rx#: [id number] Sodium Chloride 0.9% 1, 240 000 ml @ 20 mls/hr IV . Q24H [facility] Rx#:[id number] Oral 300 100 Output: Stool 1 Other: Voiding Method Toilet Toilet # Voids 1 Weight 89 kg 89 kg Patient Weight 11/29/16 06:59 Weight 89 kg GENERAL EXAM: Alert, active, comfortable in no apparent distress. HEAD: Normocephalic. EYES: Normal reaction of pupils, equal size. NOSE: Clear with pink turbinates. THROAT: No erythema or exudates. NECK: No masses, no JVD. CHEST: No chest wall deformity. LUNGS: Equal air entry with no crackles, wheeze, rhonchi or dullness. Diminished at the bases bilaterally. CVS: S1 and S2 normal with no audible mumurs, regular rhythm. ABDOMEN: No hepatosplenomegaly, normal bowel sounds, no guarding or rigidity. EXTREMITIES: 1-2+ edema noted, pedal pulses palpable. SKIN: No rashes CENTRAL NERVOUS SYSTEM: No focal deficits, tone is normal in all 4 extremities. Results - Laboratory Findings CBC and BMP: 11/26/16 06:13 11/28/16 06:01 PT/INR, D-dimer PT 25.3 sec (9.0-12.0) H 11/28/16 06:01 INR 2.6 (<1.1) 11/28/16 06:01 Abnormal lab findings: Abnormal Labs 11/21/16 11/21/16 11/21/16 20:49 21:04 22:19 WBC Neutrophils # Lymphocytes # PT INR APTT Sodium Chloride Carbon Dioxide BUN Creatinine Glucose POC Glucose (mg/dL) 426 H 421 H Hemoglobin A1c Plasma Lactic Acid Eddie 2.2 H* ALT Total Protein Albumin TSH Urine Glucose (UA) Urine Blood 11/21/16 11/21/16 11/21/16 22:19 22:19 22:52 WBC Neutrophils # Lymphocytes # PT INR APTT Sodium Chloride Carbon Dioxide BUN Creatinine Glucose POC Glucose (mg/dL) 398 H 330 H Hemoglobin A1c 7.2 H Plasma Lactic Acid Eddie ALT Total Protein Albumin TSH Urine Glucose (UA) Urine Blood 11/21/16 11/21/1611/22/17 23:19 23:44 01:02 WBC Neutrophils # Lymphocytes # PT INR APTT Sodium Chloride Carbon Dioxide BUN Creatinine Glucose POC Glucose (mg/dL) 242 H 211 H 133 H Hemoglobin A1c Plasma Lactic Acid Eddie ALT Total Protein Albumin TSH Urine Glucose (UA) Urine Blood 11/22/16 11/22/16 11/22/16 02:14 02:50 03:17 WBC Neutrophils # Lymphocytes # PT INR APTT Sodium Chloride Carbon Dioxide BUN Creatinine Glucose POC Glucose (mg/dL) 157 H 265 H Hemoglobin A1c Plasma Lactic Acid Eddie ALT Total Protein Albumin TSH Urine Glucose (UA) 4+ H Urine Blood Trace H 11/22/16 11/22/16 11/22/16 04:13 04:25 04:25 WBC 28.9 H* Neutrophils # 27.7 H Lymphocytes # 0.6 L PT 66.0 H INR 6.5 H* APTT 54.7 H Sodium Chloride Carbon Dioxide BUN Creatinine Glucose POC Glucose (mg/dL) 269 H Hemoglobin A1c Plasma Lactic Acid Eddie ALT Total Protein Albumin TSH Urine Glucose (UA) Urine Blood 11/22/16 11/22/16 11/22/16 04:25 04:25 05:11 WBC Neutrophils # Lymphocytes # PT INR APTT Sodium 135 L Chloride Carbon Dioxide 21 L BUN 18 H Creatinine Glucose 226 H POC Glucose (mg/dL) 180 H Hemoglobin A1c Plasma Lactic Acid Eddie ALT Total Protein Albumin TSH 0.239 L Urine Glucose (UA) Urine Blood 11/22/16 11/22/16 11/22/16 06:07 07:09 07:56 WBC Neutrophils # Lymphocytes # PT INR APTT Sodium Chloride Carbon Dioxide BUN Creatinine Glucose POC Glucose (mg/dL) 159 H 204 H 227 H Hemoglobin A1c Plasma Lactic Acid Dedie ALT Total Protein Albumin TSH Urine Glucose (UA) Urine Blood 11/22/16 11/22/16 11/22/16 09:10 09:57 10:58 WBC Neutrophils # Lymphocytes # PT INR APTT Sodium Chloride Carbon Dioxide BUN Creatinine Glucose POC Glucose (mg/dL) 305 H 244 H 209 H Hemoglobin A1c Plasma Lactic Acid Eddie ALT Total Protein Albumin TSH Urine Glucose (UA) Urine Blood 11/22/16 11/22/16 11/22/16 12:15 12:55 14:19 WBC Neutrophils # Lymphocytes # PT INR APTT Sodium Chloride Carbon Dioxide BUN Creatinine Glucose POC Glucose (mg/dL) 154 H 135 H 212 H Hemoglobin A1c Plasma Lactic Acid Eddie ALT Total Protein Albumin TSH Urine Glucose (UA) Urine Blood 11/22/16 11/22/16 11/22/16 15:00 16:03 17:01 WBC Neutrophils # Lymphocytes # PT INR APTT Sodium Chloride Carbon Dioxide BUN Creatinine Glucose POC Glucose (mg/dL) 235 H 187 H 203 H Hemoglobin A1c Plasma Lactic Acid Eddie ALT Total Protein Albumin TSH Urine Glucose (UA) Urine Blood 11/22/16 11/22/16 11/22/16 18:19 20:09 21:13 WBC Neutrophils # Lymphocytes # PT INR APTT Sodium Chloride Carbon Dioxide BUN Creatinine Glucose POC Glucose (mg/dL) 198 H 176 H 177 H Hemoglobin A1c Plasma Lactic Acid Eddie ALT Total Protein Albumin TSH Urine Glucose (UA) Urine Blood 11/22/16 11/22/16 11/23/16 22:07 23:07 00:12 WBC Neutrophils # Lymphocytes # PT INR APTT Sodium Chloride Carbon Dioxide BUN Creatinine Glucose POC Glucose (mg/dL) 186 H 234 H 190 H Hemoglobin A1c Plasma Lactic Acid Eddie ALT Total Protein Albumin TSH Urine Glucose (UA) Urine Blood 11/23/16 11/23/16 11/23/16 01:05 02:12 03:10 WBC Neutrophils # Lymphocytes # PT INR APTT Sodium Chloride Carbon Dioxide BUN Creatinine Glucose POC Glucose (mg/dL) 167 H 154 H 160 H Hemoglobin A1c Plasma Lactic Acid Eddie ALT Total Protein Albumin TSH Urine Glucose (UA) Urine Blood 11/23/16 11/23/16 11/23/16 04:12 04:37 04:37 WBC 27.7 H* Neutrophils # 26.6 H Lymphocytes # 0.5 L PT INR APTT Sodium 136 L Chloride Carbon Dioxide 21 L BUN 18 H Creatinine 0.40 L Glucose 172 H POC Glucose (mg/dL) 183 H Hemoglobin A1c Plasma Lactic Acid Eddie ALT Total Protein Albumin TSH Urine Glucose (UA) Urine Blood 11/23/16 11/23/16 11/23/16 04:37 05:28 07:45 WBC Neutrophils # Lymphocytes # PT 13.6 H INR APTT Sodium Chloride Carbon Dioxide BUN Creatinine Glucose POC Glucose (mg/dL) 139 H 220 H Hemoglobin A1c Plasma Lactic Acid Eddie ALT Total Protein Albumin TSH Urine Glucose (UA) Urine Blood 11/23/16 11/23/16 11/23/16 09:08 10:06 11:01 WBC Neutrophils # Lymphocytes # PT INR APTT Sodium Chloride Carbon Dioxide BUN Creatinine Glucose POC Glucose (mg/dL) 276 H 283 H 254 H Hemoglobin A1c Plasma Lactic Acid Eddie ALT Total Protein Albumin TSH Urine Glucose (UA) Urine Blood 11/23/16 11/23/16 11/23/16 11:55 13:13 14:27 WBC Neutrophils # Lymphocytes # PT INR APTT Sodium Chloride Carbon Dioxide BUN Creatinine Glucose POC Glucose (mg/dL) 166 H 122 H 172 H Hemoglobin A1c Plasma Lactic Acid Eddie ALT Total Protein Albumin TSH Urine Glucose (UA) Urine Blood 11/23/16 11/23/16 11/23/16 14:55 16:03 16:55 WBC Neutrophils # Lymphocytes # PT INR APTT Sodium Chloride Carbon Dioxide BUN Creatinine Glucose POC Glucose (mg/dL) 194 H 173 H 158 H Hemoglobin A1c Plasma Lactic Acid Eddie ALT Total Protein Albumin TSH Urine Glucose (UA) Urine Blood 11/23/16 11/23/16 11/23/16 17:07 18:12 19:12 WBC Neutrophils # Lymphocytes # PT INR APTT Sodium Chloride Carbon Dioxide BUN Creatinine Glucose POC Glucose (mg/dL) 152 H 126 H 181 H Hemoglobin A1c Plasma Lactic Acid Eddie ALT Total Protein Albumin TSH Urine Glucose (UA) Urine Blood 11/23/16 11/23/16 11/23/16 20:12 20:59 22:01 WBC Neutrophils # Lymphocytes # PT INR APTT Sodium Chloride Carbon Dioxide BUN Creatinine Glucose POC Glucose (mg/dL) 164 H 151 H 149 H Hemoglobin A1c Plasma Lactic Acid Eddie ALT Total Protein Albumin TSH Urine Glucose (UA) Urine Blood 11/23/16 11/24/16 11/24/16 23:45 01:02 02:06 WBC Neutrophils # Lymphocytes # PT INR APTT Sodium Chloride Carbon Dioxide BUN Creatinine Glucose POC Glucose (mg/dL) 123 H 184 H 158 H Hemoglobin A1c Plasma Lactic Acid Eddie ALT Total Protein Albumin TSH Urine Glucose (UA) Urine Blood 11/24/16 11/24/16 11/24/16 03:12 03:58 03:58 WBC 26.3 H* Neutrophils # 25.0 H Lymphocytes # 0.4 L PT INR APTT Sodium 136 L Chloride Carbon Dioxide BUN 26 H Creatinine 0.50 L Glucose 152 H POC Glucose (mg/dL) 139 H Hemoglobin A1c Plasma Lactic Acid Eddie ALT Total Protein Albumin TSH Urine Glucose (UA) Urine Blood 11/24/16 11/24/16 11/24/16 04:02 05:11 06:16 WBC Neutrophils # Lymphocytes # PT INR APTT Sodium Chloride Carbon Dioxide BUN Creatinine Glucose POC Glucose (mg/dL) 140 H 214 H 195 H Hemoglobin A1c Plasma Lactic Acid Eddie ALT Total Protein Albumin TSH Urine Glucose (UA) Urine Blood 11/24/16 11/24/16 11/24/16 07:11 07:52 08:58 WBC Neutrophils # Lymphocytes # PT INR APTT Sodium Chloride Carbon Dioxide BUN Creatinine Glucose POC Glucose (mg/dL) 175 H 155 H 195 H Hemoglobin A1c Plasma Lactic Acid Eddie ALT Total Protein Albumin TSH Urine Glucose (UA) Urine Blood 11/24/16 11/24/16 11/24/16 09:52 11:12 12:12 WBC Neutrophils # Lymphocytes # PT INR APTT Sodium Chloride Carbon Dioxide BUN Creatinine Glucose POC Glucose (mg/dL) 269 H 193 H 224 H Hemoglobin A1c Plasma Lactic Acid Eddie ALT Total Protein Albumin TSH Urine Glucose (UA) Urine Blood 11/24/16 11/24/16 11/24/16 14:08 14:57 16:16 WBC Neutrophils # Lymphocytes # PT INR APTT Sodium Chloride Carbon Dioxide BUN Creatinine Glucose POC Glucose (mg/dL) 134 H 141 H 173 H Hemoglobin A1c Plasma Lactic Acid Eddie ALT Total Protein Albumin TSH Urine Glucose (UA) Urine Blood 11/24/16 11/24/16 11/24/16 17:01 18:49 19:53 WBC Neutrophils # Lymphocytes # PT INR APTT Sodium Chloride Carbon Dioxide BUN Creatinine Glucose POC Glucose (mg/dL) 212 H 165 H 196 H Hemoglobin A1c Plasma Lactic Acid Eddie ALT Total Protein Albumin TSH Urine Glucose (UA) Urine Blood 11/24/16 11/24/16 11/24/16 21:13 22:14 22:54 WBC Neutrophils # Lymphocytes # PT INR APTT Sodium Chloride Carbon Dioxide BUN Creatinine Glucose POC Glucose (mg/dL) 179 H 193 H 168 H Hemoglobin A1c Plasma Lactic Acid Eddie ALT Total Protein Albumin TSH Urine Glucose (UA) Urine Blood 11/25/16 11/25/16 11/25/16 00:02 01:37 02:31 WBC Neutrophils # Lymphocytes # PT INR APTT Sodium Chloride Carbon Dioxide BUN Creatinine Glucose POC Glucose (mg/dL) 180 H 144 H 150 H Hemoglobin A1c Plasma Lactic Acid Eddie ALT Total Protein Albumin TSH Urine Glucose (UA) Urine Blood 11/25/16 11/25/16 11/25/16 03:14 04:07 04:27 WBC 18.6 H Neutrophils # 16.7 H Lymphocytes # 0.8 L PT INR APTT Sodium Chloride Carbon Dioxide BUN Creatinine Glucose POC Glucose (mg/dL) 125 H 135 H Hemoglobin A1c Plasma Lactic Acid Eddie ALT Total Protein Albumin TSH Urine Glucose (UA) Urine Blood 11/25/16 11/25/16 11/25/16 04:27 04:27 04:27 WBC Neutrophils # Lymphocytes # PT 13.1 H INR APTT Sodium Chloride Carbon Dioxide BUN 26 H Creatinine 0.50 L Glucose 142 H POC Glucose (mg/dL) Hemoglobin A1c 7.3 H Plasma Lactic Acid Eddie ALT Total Protein Albumin TSH Urine Glucose (UA) Urine Blood 11/25/16 11/25/16 11/25/16 04:53 06:58 08:11 WBC Neutrophils # Lymphocytes # PT INR APTT Sodium Chloride Carbon Dioxide BUN Creatinine Glucose POC Glucose (mg/dL) 127 H 141 H 107 H Hemoglobin A1c Plasma Lactic Acid Eddie ALT Total Protein Albumin TSH Urine Glucose (UA) Urine Blood 11/25/16 11/25/16 11/25/16 09:58 12:07 16:35 WBC Neutrophils # Lymphocytes # PT INR APTT Sodium Chloride Carbon Dioxide BUN Creatinine Glucose POC Glucose (mg/dL) 264 H 303 H 239 H Hemoglobin A1c Plasma Lactic Acid Eddie ALT Total Protein Albumin TSH Urine Glucose (UA) Urine Blood 11/25/16 11/26/16 11/26/16 20:41 06:13 06:13 WBC 12.2 H Neutrophils # 9.1 H Lymphocytes # PT INR APTT Sodium Chloride Carbon Dioxide 31 H BUN 23 H Creatinine Glucose POC Glucose (mg/dL) 165 H Hemoglobin A1c Plasma Lactic Acid Eddie ALT Total Protein Albumin TSH Urine Glucose (UA) Urine Blood 11/26/16 11/26/16 11/26/16 06:13 11:52 16:50 WBC Neutrophils # Lymphocytes # PT 15.9 H INR APTT Sodium Chloride Carbon Dioxide BUN Creatinine Glucose POC Glucose (mg/dL) 198 H 252 H Hemoglobin A1c Plasma Lactic Acid Eddie ALT Total Protein Albumin TSH Urine Glucose (UA) Urine Blood 11/26/16 11/27/16 11/27/16 21:07 05:54 05:54 WBC Neutrophils # Lymphocytes # PT 21.4 H INR APTT Sodium Chloride Carbon Dioxide BUN 22 H Creatinine 0.40 L Glucose 110 H POC Glucose (mg/dL) 159 H Hemoglobin A1c Plasma Lactic Acid Eddie ALT Total Protein Albumin TSH Urine Glucose (UA) Urine Blood 11/27/16 11/27/16 11/27/16 11:32 16:06 20:58 WBC Neutrophils # Lymphocytes # PT INR APTT Sodium Chloride Carbon Dioxide BUN Creatinine Glucose POC Glucose (mg/dL) 120 H 102 H 140 H Hemoglobin A1c Plasma Lactic Acid Eddie ALT Total Protein Albumin TSH Urine Glucose (UA) Urine Blood 11/28/16 11/28/16 11/28/16 06:01 06:01 06:40 WBC Neutrophils # Lymphocytes # PT 25.3 H INR APTT Sodium Chloride 93 L Carbon Dioxide 36 H BUN 18 H Creatinine 0.50 L Glucose POC Glucose (mg/dL) 192 H Hemoglobin A1c Plasma Lactic Acid Eddie ALT 78 H Total Protein 5.2 L Albumin 2.9 L TSH Urine Glucose (UA) Urine Blood Assessment and Plan Plan: Assessment #1 acute community-acquired lingular pneumonia with extensive consolidation of the left lung #2 acute COPD exacerbation secondary to pneumonia #3 acute on chronic hypoxic respiratory failure #4 leukocytosis secondary to pneumonia #5 chronic atrial fibrillation #6 Coumadin toxicity #7 coronary artery disease #8 diabetes mellitus #9 hypertension #10 hyperlipidemia #11 obstructive sleep apnea #12 macular degeneration Plan We will continue with the current treatment and antibiotics, diuretics, steroids and anticoagulants. Continue with aerosol breathing treatments. We will continue to monitor her labs and be sure her INR is therapeutic before discharge. Further recommendations forthcoming. I performed an examination of the patient and discussed their management with the nurse practitioner. I have reviewed the nurse practitioner's note and agree with the documented findings and plan of care.
[2016-11-28 11:19] LABS: Glucose,Whole Blood 167 mg/dL (75-99)
--- NOTE | 2016-11-28 14:09 | P.PN ---
Subjective Principal diagnosis: Acute left lower lobe pneumonia secondary to MRSA 71-year-old female patient with advanced COPD, chronic hypoxic respiratory failure, was seen Dr. Galvan in the past and currently is interested in switching services. The patient is also known to have coronary artery disease, chronic atrial fibrillation and she is morbidly obese and she has been treated for hypertension hyperlipidemia and she has been on long-term anticoagulation for chronic atrial fibrillation. The patient presented yesterday to the emergency department because of worsening shortness of breath. She was having increased cough chest congestion and wheezing. A chest x-ray was done and showed a lingular consolidation/ pneumonia. The patient was also found to be in atrial fibrillation with rapid ventricle response and she was also toxic on her Coumadin. As such, the patient was admitted to the intensive care unit where she was started on a broad -spectrum antibiotics. She is currently on a Cardizem drip for rate control and Cardizem drip is running at 50 mg an hour. She was given a dose of digoxin by cardiology to achieve a better rate control. She was given vitamin K for her coagulopathy and subsequent INR is down to 5. No signs of any acute bleeding at this point. No change in mental status. She was having some chest congestion and chest discomfort over the left anterior chest area which corresponds to her lingular pneumonia. No swelling in lower extremities. No nausea. No vomiting. No abdominal pain. No diarrhea. No other complaints otherwise for now. On 11/23/2016 the patient is being seen in follow-up. The patient is still antibiotics regarding her lingular pneumonia. The patient is receiving Rocephin and Zithromax. She is still on a Cardizem drip for rate control and she is still on 50 mg an hour of Cardizem drip. She is doing well. No specific complaints pH is less short of breath. She was given a dose of Lasix and she diuresed more than liter earlier this morning. No nausea. No vomiting. No emesis. Chest x-ray showing stable consolidation of the lingula, probably somewhat better compared to yesterday. The patient's coagulopathy has been reversed and the patient will be restarted back on anticoagulation. No mental status change. No other new complaints otherwise for now. On 11/24/2016, the patient is being seen in follow-up. The patient remains in the intensive care unit for a lingular pneumonia. Today's chest x-ray shows some limited improvement in the left left lung consolidation. Nevertheless, the patient clinically is improved. A chest patient's other better control and the patient was taken off the Cardizem drip and she was started on verapamil orally which is providing adequate rate control. The patient is also being gradually and to coag related regarding her chronic atrial fibrillation and his PT/INR is subtherapeutic. The patient is on a combination of DuoNeb nebulized treatments, IV Solu-Medrol, IV Teflaro and Zithromax. The patient was found to have MRSA in the sputum. The blood cultures negative for now. She is tolerating her diet. No change in mental status. No other complaints otherwise. On 11/25/2016 the patient is being seen in follow-up in the intensive care units. The patient is doing well. She has no specific complaints. She is being treated for a pneumonia of the lingula and there is MRSA in the sputum and the possibility of MRSA pneumonia was entertained and the patient is currently on a combination of Teflaro and Zithromax. She is still having difficulties in controlling atrial fibrillation. The patient has been on oral Cardizem the dose of which was increased up to 60 mg 4 times a day. The patient was also started on Lopressor 25 mg and the doses being given 3 times a day in conjunction with digoxin. Despite this, it was noted the patient's heart rate is going significantly elevated reaching up times to 1:30 with activity. She denies having any chest pain. No nausea. No vomiting. No abdominal pain. No change in mental status. She is on anticoagulation and INR is up to 1.3. Her white cell count is also improving and stop down to 18,000. I will be moving this patient out of the intensive care unit today. The chest x -ray from today shows slow improvement in the lingular consolidation/infiltrate. On 11/26/2016 the patient is being seen in follow-up. No follow-up chest x-ray was done from today. Nevertheless the patient was having slow but ongoing improvement and MRSA pneumonia of the left lung/lingula. No fever. No chills. The white cell count is down to 12. The patient is being gradually and it admitted with warfarin the patient's INR is up to 1.6. Rest of the electrodes are within normal limits. The patient has no specific complaints. On 11/27/2016, patient is feeling well from the pulmonary perspective, but she is complaining of being swollen and edematous. Retaining fluid in her face arms and lower extremities. Hence I have recommended Lasix. Chest x-ray was reviewed today, and it showed improvement in the left lower lobe aeration. Labs were reviewed, she had a relatively normal electrolytes and normal CBC white count is coming down nicely. INR is therapeutic at 2.2. Seen today on 11/28/2016, patient is doing extremely well, feeling much better, sounds a lot clear, and the patient could be considered for discharge planning and follow-up on outpatient basis that would be up to the patient or her family to decide whether they follow-up with Dr. Bustamante or with Based on the notes from Dr. Bustamante initially apparently the family requesting change of services from Dr. Galvan to Dr. Bustamante. At any rate I'm going to see the patient today for the last time, and she will be advised to follow-up with Dr. Bustamante if she likes. From our perspective the patient could be discharged home and follow up on outpatient basis. Objective - Vital Signs Vital signs: Vital Signs Temp 98.2 F 11/28/16 08:00 Pulse 90 11/28/16 13:14 Resp 16 11/28/16 12:00 BP 122/74 11/28/16 12:00 Pulse Ox 95 11/28/16 12:00 Intake & Output 11/27/16 11/28/16 11/28/16 18:59 06:59 18:59 Intake Total 402 790 794 Output Total 2 1 Balance 400 790 793 Weight 89 kg 89 kg Intake: IV 490 Ceftaroline Fosamil 600 250 mg In Sodium Chloride 0.9 % 250 ml @ 250 mls/hr IVPB Q12HR [facility] Rx#: [id number] Sodium Chloride 0.9% 1, 240 000 ml @ 20 mls/hr IV . Q24H [facility] Rx#:[id number] Intake, IV Titration 250 Amount Ceftaroline Fosamil 600 250 mg In Sodium Chloride 0.9 % 250 ml @ 250 mls/hr IVPB Q12HR [facility] Rx#: [id number] Oral 402 300 544 Output: Stool 2 1 Other: Voiding Method Toilet Toilet Toilet # Voids 1 1 - Exam Physical Exam: Revealed a 71-year-old female, obese, in no distress. Facial swelling was noted. HEENT:[Neck is supple.] [No neck masses.] [No thyromegaly.] [No JVD.] Chest: Diminished breath sounds at the bases no crackles or rhonchi or wheezes] Cardiac Exam: [Normal S1 and S2, no S3 gallop, no murmur.] Abdomen: [Soft, nontender, no megaly, no rebound, no guarding, normal bowel sounds.] Extremities: [No clubbing, 1+ bipedal edema, no cyanosis.] Neurological Exam: [No focal neurologic deficit.] - Labs CBC & Chem 7: 11/26/16 06:13 11/28/16 06:01 Labs: Abnormal Lab Results - Last 24 Hours (Table) 11/27/16 11/27/16 11/28/16 Range/Units 16:06 20:58 06:01 PT 25.3 H (9.0-12.0) sec Chloride (98-107) mmol/L Carbon Dioxide (22-30) mmol/L BUN (7-17) mg/dL Creatinine (0.52-1.04) mg/dL POC Glucose (mg/dL) 102 H 140 H (75-99) mg/dL ALT (9-52) U/L Total Protein (6.3-8.2) g/dL Albumin (3.5-5.0) g/dL 11/28/16 11/28/16 11/28/16 Range/Units 06:01 06:40 11:18 PT (9.0-12.0) sec Chloride 93 L (98-107) mmol/L Carbon Dioxide 36 H (22-30) mmol/L BUN 18 H (7-17) mg/dL Creatinine 0.50 L (0.52-1.04) mg/dL POC Glucose (mg/dL) 192 H 167 H (75-99) mg/dL ALT 78 H (9-52) U/L Total Protein 5.2 L (6.3-8.2) g/dL Albumin 2.9 L (3.5-5.0) g/dL Assessment and Plan Plan: 1 acute community-acquired lingular pneumonia with extensive consolidation of the lingular segment of the left lung On 11/23/2016, the patient is still on broad-spectrum antibiotics on a combination of Rocephin and Zithromax and the chest x-ray showing stable consolidation of the lingula, probably some slight improvement compared to yesterday. On 11/24/2016, there is a consideration for an MRSA pneumonia. The patient sputum has shown MRSA and the patient is currently on a combination of Teflaro and Zithromax. Rocephin was discontinued. Today chest a shows some modest improvement in the left lung consolidation. On 11/25/2016, the patient is still being treated for numerous a pneumonia. Antibiotic coverage is the same. Chest x-ray shows slow improvement in the white cell count has dropped down to 18,000. She is afebrile and she is hemodynamically stable. No major respiratory distress. The patient is currently on 2 L of oxygen by nasal cannula her saturations around 94%. She was also taken off the IV Solu-Medrol and started on a prednisone burst taper starting with 40 mg daily basis. On 11/26/2016 the patient remains stable as being treated for a lingular MRSA pneumonia. Antibiotic coverage will be kept the same and the patient continues to be on Teflaro and Zithromax. On 11/27 patient is noted to be improved, chest x-ray is improving, for the swelling got recommended adding Lasix. And order was placed on the chart. Cut down IV fluid at bit. On 11/28/2016, patient was cleared from my perspective for discharge planning, and follow-up with Dr. Bustamante on outpatient basis if she likes. 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 That would be up to the patient to make the final decision. 2 acute COPD exacerbation secondary to above, the patient has advanced COPD at baseline and she is demented on a combination of Advair and Spiriva. 3 chronic hypoxic respiratory failure 4 leukocytosis secondary to pneumonia, white cell count remains elevated. 5 chronic atrial fibrillation , currently on improved rate control and the patient was taken off the Cardizem drip and the patient was started on oral medications/Cardizem for rate control. The patient is also on oral metoprolol for rate control. 6 Coumadin toxicity, being reversed with vitamin K, follow-up INR today is 1.3 7 coronary artery disease with previous coronary intervention and stenting currently stable 8 diabetes mellitus 9 hypertension 10 hyperlipidemia 11 obstructive sleep apnea noncompliant to CPAP therapy 12 skin cancer resected 13 nicotine addiction/smoking. 14 macular degeneration Recommendation: Patient cleared for discharge, and she could follow-up with us on outpatient if she wishes. No need for any further pulmonary follow-up at this point. Time with Patient: Less than 30
[2016-11-28 16:54] LABS: Glucose,Whole Blood 250 mg/dL (75-99)
[2016-11-28] MEDS: AZITHROMYCIN 500 MG TAB PO SCH (16:57)
[2016-11-28] MEDS: WARFARIN 5 MG TAB PO SCH (16:57)
--- NOTE | 2016-11-28 19:54 | PN ---
CHIEF COMPLAINT: Congestive heart failure, atrial fibrillation with a rapid ventricular response and asthma. HISTORY OF PRESENT ILLNESS: This lady is doing reasonably well and her heart rate slowed a little bit and she is a little bit less short of breath. PHYSICAL EXAMINATION: She still has rales throughout. She still has wheezing on expiration. Cardiac exam reveals a heart rate down closer to 100 now. ABDOMEN: Soft, nontender. IMPRESSION: 1. Congestive heart failure. 2. Chronic obstructive pulmonary disease. 3. Reactive airway disease. 4. Atrial fibrillation with rapid ventricular response. PLAN: Continue efforts to slow ventricular response rate along with diuresis and improving her pulmonary function.
[2016-11-28 20:43] LABS: Glucose,Whole Blood 119 mg/dL (75-99)
[2016-11-28] MEDS: traZODone HCL 50 MG TAB PO SCH (21:14)
[2016-11-29] MEDS: ALPRAZolam 0.25 MG TAB PO PRN ×4 (00:21→23:20)
[2016-11-29] MEDS: SODIUM CHLORIDE 0.9% 1,000 ML IV SCH ×2 (02:51→17:48)
[2016-11-29 06:33] LABS: Glucose,Whole Blood 159 mg/dL (75-99)
[2016-11-29] MEDS: INSULIN LISPRO (humaLOG) 300 UNIT/3 ML VIAL SQ SCH ×4 (06:36→22:03)
[2016-11-29 07:00] LABS: ALT 62 U/L (9-52); AST 15 U/L (14-36); Alkaline Phosphatase 84 U/L (38-126); Anion Gap 8 mmol/L; Blood Urea Nitrogen 23 mg/dL (7-17); Calcium 9.1 mg/dL (8.4-10.2); Carbon Dioxide 36 mmol/L (22-30); Chloride 94 mmol/L (98-107); Glucose 152 mg/dL (74-99); Non-African American GFR(MDRD) >60 (>60 ml/min/1.73 sqM); Potassium 4.1 mmol/L (3.5-5.1); Sodium 138 mmol/L (137-145); Total Bilirubin 0.3 mg/dL (0.2-1.3); Total Protein 5.4 g/dL (6.3-8.2)
[2016-11-29 07:01] LABS: INR 2.3 (<1.1); Prothrombin Time 22.1 sec (9.0-12.0)
[2016-11-29] MEDS: IPRATROPIUM-ALBUTEROL 3 ML NEB INHALATION SCH ×3 (08:02→19:29)
[2016-11-29] MEDS: predniSONE 20 MG TAB PO SCH (08:03)
[2016-11-29] MEDS: METOPROLOL TARTRATE 25 MG TAB PO SCH (08:03)
[2016-11-29] MEDS: LOSARTAN 50 MG TAB PO SCH ×2 (08:03→08:39)
[2016-11-29] MEDS: CEFTAROLINE FOSAMIL 600 MG in SODIUM CHLORIDE 0.9% 250 ML IVPB SCH ×2 (08:36→22:03)
[2016-11-29] MEDS: DILTIAZEM ORAL 30 MG TAB PO SCH ×4 (08:36→22:02)
[2016-11-29] MEDS: PANTOPRAZOLE 40 MG TABLET PO SCH (08:37)
[2016-11-29] MEDS: METOPROLOL TARTRATE 50 MG TAB PO SCH ×2 (08:37→22:02)
[2016-11-29] MEDS: DIGOXIN 125 MCG TAB PO SCH (08:37)
[2016-11-29] MEDS: VARENICLINE 1 MG TAB PO SCH ×2 (08:37→17:14)
[2016-11-29] MEDS: FERROUS SULFATE 325 MG TAB PO SCH ×3 (08:38→22:02)
[2016-11-29] MEDS: MELOXICAM 7.5 MG TAB PO SCH (08:38)
[2016-11-29] MEDS: DOCUSATE 100 MG CAP PO SCH ×2 (08:38→22:03)
[2016-11-29] MEDS: predniSONE 10 MG TAB PO SCH (08:38)
[2016-11-29] MEDS: ASPIRIN 81 MG CHEW PO SCH (08:39)
[2016-11-29] MEDS: OXYBUTYNIN XL 5 MG TAB.ER.24 PO SCH (08:39)
[2016-11-29] MEDS: ATORVASTATIN 20 MG TAB PO SCH (08:39)
[2016-11-29] MEDS: INSULIN GLARGINE 100 UNIT/ML 10 ML VIAL SQ SCH (09:03)
[2016-11-29] MEDS: FUROSEMIDE 40 MG TAB PO SCH ×2 (09:04→16:37)
--- NOTE | 2016-11-29 10:12 | PN ---
Darleen Joslyn who is seen, evaluated, and examined. Ms. Jorgensen is a 71-year-old female with pneumonia, sepsis. Patient has MRSA isolated in the sputum as well. She is seen, evaluated and examined on the sixth floor. Clinically doing well. Her respiratory status is slightly better, breathing more comfortably. Hemodynamic status is stable. Blood pressure is 170/80, respiratory rate 16, pulse 79, temperature 98, saturation 95% to 96%. HEENT: Unremarkable. NECK: Supple. LUNGS: Good air entry bilaterally. HEART: Regular rate and rhythm. ABDOMEN: Soft. NEUROLOGICAL EXAMINATION: Otherwise, awake and alert. Medications reviewed. Laboratory data reviewed as well. IMPRESSION: 1. Methicillin-resistant Staphylococcus aureus pneumonia with mixed bacterial pneumonia. 2. Severe sepsis, acute on chronic hypoxic respiratory failure. 3. Chronic atrial fibrillation. 4. Coagulopathy related to Coumadin toxicity. 5. Dyslipidemia. 6. Obstructive sleep apnea. PLAN AND RECOMMENDATION: As above. Continue supportive care. Follow clinical course closely. Further recommendations pending. Plan of care as per clinical response of the patient.
[2016-11-29 11:56] LABS: Glucose,Whole Blood 176 mg/dL (75-99)
--- NOTE | 2016-11-29 12:32 | P.PN ---
Subjective 71-year-old female being seen on rounds this morning is currently sitting on the edge of the bed. Patient does state feels tired but less short of breath this morning with coaching can use the incentive spirometer can achieve 750- 1000. Patient's been followed by pulmonology and cardiology service throughout the hospitalization. Pulmonology indicates from their perspective the patient be discharged and followed up in outpatient setting. Cardiology indicates there is no further cardiac workup at this time. Physical and occupational therapy have been following patient indicate patient would benefit from subacute rehab the discharge plan is in progress plan is to discharge the patient tomorrow [facility] patient's choice for subacute rehab Objective - Vital Signs Vital signs: Vital Signs Temp 96.8 F L 11/29/16 08:00 Pulse 92 11/29/16 08:17 Resp 16 11/29/16 08:00 BP 158/81 11/29/16 08:00 Pulse Ox 95 11/29/16 08:00 Intake & Output 11/28/16 11/29/16 11/29/16 18:59 06:59 18:59 Intake Total 7280 576 3743 Output Total 2 Balance 0047 779 5871 Weight 89 kg 89.1 kg Intake: IV 120 250 Ceftaroline Fosamil 600 250 mg In Sodium Chloride 0.9 % 250 ml @ 250 mls/hr IVPB Q12HR [facility] Rx#: [id number] Sodium Chloride 0.9% 1, 120 000 ml @ 20 mls/hr IV . Q24H [facility] Rx#:[id number] Intake, IV Titration 250 Amount Ceftaroline Fosamil 600 250 mg In Sodium Chloride 0.9 % 250 ml @ 250 mls/hr IVPB Q12HR [facility] Rx#: [id number] Oral 988 1160 Output: Stool 2 Other: Voiding Method Toilet Toilet Toilet # Voids 1 3 - Exam Physical exam 71-year-old female sitting up on the edge of the bed pleasant alert oriented 3 appears in no acute distress Lungs posterior diminished at the bases upper airways bronchial breath sounds no cough noted nasal cannula 4 L sats 93% Heart S1-S2 audible irregular monitor currently A. fib heart rate 80s Abdomen soft nontender no reports of nausea vomiting Extremities a trace pedal edema bilaterally - Labs CBC & Chem 7: 11/26/16 06:13 11/29/16 06:05 Labs: Abnormal Lab Results - Last 24 Hours (Table) 11/28/16 11/28/16 11/29/16 Range/Units 16:53 20:42 06:05 PT 22.1 H (9.0-12.0) sec Chloride (98-107) mmol/L Carbon Dioxide (22-30) mmol/L BUN (7-17) mg/dL Glucose (74-99) mg/dL POC Glucose (mg/dL) 250 H 119 H (75-99) mg/dL ALT (9-52) U/L Total Protein (6.3-8.2) g/dL Albumin (3.5-5.0) g/dL 11/29/16 11/29/16 11/29/16 Range/Units 06:05 06:30 11:54 PT (9.0-12.0) sec Chloride 94 L (98-107) mmol/L Carbon Dioxide 36 H (22-30) mmol/L BUN 23 H (7-17) mg/dL Glucose 152 H (74-99) mg/dL POC Glucose (mg/dL) 159 H 176 H (75-99) mg/dL ALT 62 H (9-52) U/L Total Protein 5.4 L (6.3-8.2) g/dL Albumin 3.0 L (3.5-5.0) g/dL Assessment and Plan Plan: Impression Present on admission atrial fibrillation with a rapid ventricular response suspect exacerbated by underlying pneumonia with a positive sputum culture for MRSA MRSA pneumonia with extensive consolidation of the lingular segment of the left lung Acute on chronic hypoxic respiratory failure multifactorial likely due to an exacerbation of COPD with MRSA pneumonia with volume overload exacerbation decompensated diastolic heart failure Chronic persistent atrial fibrillation with episodes of rapid ventricular response Present on admission Coumadin toxicity INR 10 corrected resolving Coronary artery disease with prior coronary stenting type 2 diabetes insulin requiring hemoglobin A1c 7.3 Episodes of hyperglycemia likely due to steroids Essential Hypertension Present on admission Leukocytosis likely due to pneumonia Chronic nicotine dependency greater than a 40 year history down to 4-5 cigarettes a day Chronic physical debility due to comorbidities Episodes of chest discomfort likely due to respiratory no evidence of acute coronary syndrome History of skin cancer resection Advanced COPD at baseline Anxiety disorder nonspecified Present on admission acute on chronic diastolic heart failure likely due to hypertensive heart disease echocardiogram EF 50-55% Chronic physical debility suspect due to comorbidities Obstructive sleep apnea noncompliant with CPAP therapy Plan PT OT Plan for discharge to [facility] subacute rehab [facility] tomorrow if medically stable Cardiology and pulmonology indicated patient is medically stable with no further workup from their perspective patient could be discharged DVT and GI prophylaxis Monitor blood sugars address per protocol Continue to reinforce smoking cessation information patient advised to stop smoking Continue Chantix 1 mg twice a day as ordered for smoking sensation Respiratory treatments as ordered Further recommendations pending Lantus 30 units at bedtime and monitor blood sugars Continue Cozaar 100 mg daily with Cardizem 90 4 times a day, Coumadin 5 mg daily The above dictated assessment and findings were discussed with dr david Rogers and the plan of care have been dictated as directed. Nancy Nobles nurse practitioner acting as a scribe for dr hernandez
[2016-11-29] MEDS: IPRATROPIUM-ALBUTEROL 3 ML NEB INHALATION PRN (15:33)
[2016-11-29] MEDS ORDERED: METOPROLOL TARTRATE 50 MG TAB PO SCH (16:00)
[2016-11-29 16:47] LABS: Glucose,Whole Blood 190 mg/dL (75-99)
[2016-11-29] MEDS: AZITHROMYCIN 500 MG TAB PO SCH (17:14)
[2016-11-29] MEDS: WARFARIN 5 MG TAB PO SCH (17:15)
--- NOTE | 2016-11-29 19:19 | PN ---
DATE OF SERVICE: 11/29/2016 CHIEF COMPLAINT: Congestive heart failure, COPD and asthma. HISTORY OF PRESENT ILLNESS: This lady is a little better than yesterday but still very short of breath. Heart rate is still down, but still running around 110 to 120. She is a little bit less short of breath. PHYSICAL EXAMINATION: She still has rales throughout. Cardiac exam demonstrates her atrial fibrillation with rapid ventricular response. Abdomen is soft, nontender. IMPRESSION: 1. Congestive heart failure. 2. Chronic obstructive pulmonary disease. 3. Reactive airway disease. 4. Obesity. 5. Uncontrolled atrial fibrillation. PLAN: Continue efforts to lower her ( ) response rate.
[2016-11-29 21:21] LABS: Glucose,Whole Blood 139 mg/dL (75-99)
[2016-11-29] MEDS: traZODone HCL 50 MG TAB PO SCH (22:02)
[2016-11-30] MEDS: IPRATROPIUM-ALBUTEROL 3 ML NEB INHALATION PRN (03:21)
[2016-11-30 04:09] VITALS: RESP 20
[2016-11-30 05:40] LABS: Glucose,Whole Blood 140 mg/dL (75-99)
[2016-11-30] MEDS: INSULIN LISPRO (humaLOG) 300 UNIT/3 ML VIAL SQ SCH ×2 (06:52→12:10)
[2016-11-30 07:17] LABS: INR 2.7 (<1.1); Prothrombin Time 26.1 sec (9.0-12.0)
[2016-11-30 07:32] LABS: ALT 66 U/L (9-52); AST 16 U/L (14-36); Alkaline Phosphatase 79 U/L (38-126); Anion Gap 8 mmol/L; Blood Urea Nitrogen 21 mg/dL (7-17); Calcium 9.7 mg/dL (8.4-10.2); Carbon Dioxide 37 mmol/L (22-30); Chloride 94 mmol/L (98-107); Glucose 106 mg/dL (74-99); Non-African American GFR(MDRD) >60 (>60 ml/min/1.73 sqM); Potassium 4.3 mmol/L (3.5-5.1); Sodium 139 mmol/L (137-145); Total Bilirubin 0.3 mg/dL (0.2-1.3); Total Protein 5.6 g/dL (6.3-8.2)
[2016-11-30] MEDS: ALPRAZolam 0.25 MG TAB PO PRN (08:33)
[2016-11-30] MEDS: DILTIAZEM ORAL 30 MG TAB PO SCH ×2 (08:40→12:10)
[2016-11-30] MEDS: DOCUSATE 100 MG CAP PO SCH (08:40)
[2016-11-30] MEDS: DIGOXIN 125 MCG TAB PO SCH (08:40)
[2016-11-30] MEDS: VARENICLINE 1 MG TAB PO SCH (08:40)
[2016-11-30] MEDS: OXYBUTYNIN XL 5 MG TAB.ER.24 PO SCH (08:40)
[2016-11-30] MEDS: ASPIRIN 81 MG CHEW PO SCH (08:40)
[2016-11-30] MEDS: LOSARTAN 50 MG TAB PO SCH (08:41)
[2016-11-30] MEDS: FERROUS SULFATE 325 MG TAB PO SCH (08:41)
[2016-11-30] MEDS: predniSONE 10 MG TAB PO SCH (08:41)
[2016-11-30] MEDS: MELOXICAM 7.5 MG TAB PO SCH (08:42)
[2016-11-30] MEDS: FUROSEMIDE 40 MG TAB PO SCH (08:42)
[2016-11-30] MEDS: ATORVASTATIN 20 MG TAB PO SCH (08:42)
[2016-11-30] MEDS: METOPROLOL TARTRATE 50 MG TAB PO SCH (08:42)
[2016-11-30] MEDS: PANTOPRAZOLE 40 MG TABLET PO SCH (08:43)
[2016-11-30] MEDS: CEFTAROLINE FOSAMIL 600 MG in SODIUM CHLORIDE 0.9% 250 ML IVPB SCH (08:48)
[2016-11-30] MEDS: INSULIN GLARGINE 100 UNIT/ML 10 ML VIAL SQ SCH (08:48)
[2016-11-30 08:55] VITALS: TEMP 97.2
--- NOTE | 2016-11-30 11:01 | P.PN ---
Subjective Darleen Jorgensen is a 71-year-old female patient is being seen today on the sixth floor. Patient has pneumonia with MRSA isolated in the sputum. Clinically she is doing well her breathing is more under control and hemodynamically she is stable. Upon examination the patient is resting up in bed today on 2 L of oxygen with no significant complaints at this time. Objective - Vital Signs Vital signs: Vital Signs Temp 97.2 F L 11/30/16 08:50 Pulse 61 11/30/16 08:50 Resp 20 11/30/16 08:50 BP 148/67 11/30/16 08:50 Pulse Ox 93 L 11/30/16 08:50 Intake & Output 11/29/16 11/30/16 11/30/16 18:59 06:59 18:59 Intake Total 2290 240 Balance 2290 240 Weight 88.7 kg Intake: IV 250 Ceftaroline Fosamil 600 250 mg In Sodium Chloride 0.9 % 250 ml @ 250 mls/hr IVPB Q12HR [facility] Rx#: [id number] Oral 2040 240 Other: Voiding Method Toilet Toilet Toilet # Voids 2 2 1 - Exam GENERAL EXAM: Alert, active, comfortable in no apparent distress. HEAD: Normocephalic. EYES: Normal reaction of pupils, equal size. NOSE: Clear with pink turbinates. THROAT: No erythema or exudates. NECK: No masses, no JVD. CHEST: No chest wall deformity. LUNGS: Equal air entry with no crackles, wheeze, rhonchi or dullness. Diminished at the bases CVS: S1 and S2 normal with no audible mumurs, chronic A. fib ABDOMEN: No hepatosplenomegaly, normal bowel sounds, no guarding or rigidity. EXTREMITIES: 1+ edema noted, pedal pulses palpable. SKIN: No rashes CENTRAL NERVOUS SYSTEM: No focal deficits, tone is normal in all 4 extremities. - Labs CBC & Chem 7: 11/26/16 06:13 11/30/16 06:37 Labs: Abnormal Lab Results - Last 24 Hours (Table) 11/29/16 11/29/16 11/29/16 Range/Units 11:54 16:44 21:19 PT (9.0-12.0) sec Chloride (98-107) mmol/L Carbon Dioxide (22-30) mmol/L BUN (7-17) mg/dL Glucose (74-99) mg/dL POC Glucose (mg/dL) 176 H 190 H 139 H (75-99) mg/dL ALT (9-52) U/L Total Protein (6.3-8.2) g/dL Albumin (3.5-5.0) g/dL 11/30/16 11/30/16 11/30/16 Range/Units 05:39 06:37 06:37 PT 26.1 H (9.0-12.0) sec Chloride 94 L (98-107) mmol/L Carbon Dioxide 37 H (22-30) mmol/L BUN 21 H (7-17) mg/dL Glucose 106 H (74-99) mg/dL POC Glucose (mg/dL) 140 H (75-99) mg/dL ALT 66 H (9-52) U/L Total Protein 5.6 L (6.3-8.2) g/dL Albumin 3.1 L (3.5-5.0) g/dL Assessment and Plan Plan: Assessment #1 acute community-acquired lingular pneumonia with extensive consolidation of the left lung #2 acute COPD exacerbation secondary to pneumonia #3 acute on chronic hypoxic respiratory failure #4 leukocytosis secondary to pneumonia #5 chronic atrial fibrillation #6 Coumadin toxicity #7 coronary artery disease #8 diabetes mellitus #9 hypertension #10 hyperlipidemia #11 obstructive sleep apnea #12 macular degeneration Plan The patient can be discharged to [facility] for rehab today if stable. We will continue to follow up with this patient in the outpatient setting, within 1 week of discharge. Further recommendations pending. I performed an examination of the patient and discussed their management with the nurse practitioner. I have reviewed the nurse practitioner's note and agree with the documented findings and plan of care.
[2016-11-30] MEDS: IPRATROPIUM-ALBUTEROL 3 ML NEB INHALATION SCH ×2 (11:08)
--- NOTE | 2016-11-30 11:24 | P.DS ---
Providers Date of admission: 11/21/16 18:44 Expected date of discharge: 11/30/16 Attending physician: Chuy Soliman Consults: 11/22/16 08:34 Consult Physician Routine Consulting Provider: Elaine Vazquez Consult Reason/Comments: Atrial fibrillation RVR Do you want consulting provider notified?: Yes 11/27/16 13:59 Consult Physician Routine Consulting Provider: Dalton Galvan Consult Reason/Comments: copd Do you want consulting provider notified?: Already Contacted Primary care physician: Chuy Soliman Hospital Course: A 71-year-old female presented on the day of admission to the emergency room to be evaluated for chief complaint of symptomatic shortness of breath. Patient stated that she had developed a cough chest congestion and audible wheezing. Patient stated the symptoms became symptomatic interfering with activities of daily living presented for the above symptoms. Temp in the emergency room was 100.4. Patient was tachycardic heart rate 120s 130s in the white count was elevated to 28. Patient was septic felt to likely be due to pneumonia left lower lobe In the emergency room a chest x-ray was obtained did show a lingular consolidation/pneumonia. Patient was started on broad-spectrum antibiotics Additionally the patient was noted to be in atrial fibrillation with a rapid ventricular response. Patient was toxic on her Coumadin. The INR was 10.6. Patient was started on IV Cardizem drip as well as a bolus and transferred to the intensive care unit A pulmonology and cardiology consultation was requested. The patient was given vitamin K for the coagulopathy and subsequently the INR was monitored closely and did trend down. There was no signs of active or acute bleeding. Additionally cardiology did address patient's rate initiating rate control medication patient additionally was seen by physical and occupational therapy. Patient did qualify for subacute rehab. on the day of discharge cardiology indicated that they would recommend continuing current cardiac medication see patient in a follow-up visit in the office. Additionally pulmonology recommended that the patient could be discharged to the [facility] facility patient would be followed up by her primary computed tomography scanner operator Dr. Galvan in the office Impression present on admission febrile temp 100.4 tachycardic heart rate in the 130s with leukocytosis sepsis likely due to MRSA left lower lobe pneumonia Present on admission atrial fibrillation with a rapid ventricular response suspect exacerbated by underlying pneumonia with a positive sputum culture for MRSA MRSA pneumonia with extensive consolidation of the lingular segment of the left lung Acute on chronic hypoxic respiratory failure multifactorial likely due to an exacerbation of COPD with MRSA pneumonia with volume overload exacerbation decompensated diastolic heart failure Chronic persistent atrial fibrillation with episodes of rapid ventricular response Present on admission Coumadin toxicity INR 10 corrected resolving Coronary artery disease with prior coronary stenting type 2 diabetes insulin requiring hemoglobin A1c 7.3 Episodes of hyperglycemia likely due to steroids Essential Hypertension Present on admission Leukocytosis likely due to pneumonia Chronic nicotine dependency greater than a 40 year history down to 4-5 cigarettes a day Chronic physical debility due to comorbidities Episodes of chest discomfort likely due to respiratory no evidence of acute coronary syndrome History of skin cancer resection Advanced COPD at baseline Anxiety disorder nonspecified Present on admission acute on chronic diastolic heart failure likely due to hypertensive heart disease echocardiogram EF 50-55% Chronic physical debility suspect due to comorbidities Obstructive sleep apnea noncompliant with CPAP therapy The above dictated assessment and findings were discussed with dr soliman . Impression and the plan of care have been dictated as directed. Nancy Nobles nurse practitioner acting as a scribe for dr soliman Patient Condition at Discharge: Stable Plan - Discharge Summary New Discharge Prescriptions: ALPRAZolam [Xanax] 0.25 mg PO TID PRN #30 tab PRN Reason: Anxiety Azithromycin [Zithromax] 500 mg PO DAILY@1800 #7 tab Diltiazem Oral [Cardizem*] 90 mg PO QID #120 tab Furosemide [Lasix] 40 mg PO BID@0900,1600 #60 tab Insulin Glargine [Lantus] 30 unit SQ DAILY #1 vial Metoprolol Tartrate [Lopressor] 100 mg PO BID #60 tab predniSONE 30 mg PO DAILY #14 tab traZODone HCL [Desyrel] 50 mg PO HS #30 tab Discharge Medication List Albuterol Nebulized [Ventolin Nebulized] 2.5 mg INHALATION RT-Q4H PRN 06/28/16 [ History] Atorvastatin [Lipitor] 20 mg PO DAILY 06/28/16 [History] Ergocalciferol (Vitamin D2) [Drisdol] 50,000 unit PO JOINER 06/28/16 [History] Fluticasone/Salmeterol [Advair 500-50 Diskus] 1 puff INHALATION RT-BID PRN 06/28 [History] [place]-3 Acid Ethyl Esters [Lovaza] 1 gm PO DAILY 06/28/16 [History] Omeprazole [PriLOSEC] 20 mg PO DAILY 06/28/16 [History] Solifenacin Succinate [Vesicare] 10 mg PO DAILY 06/28/16 [History] Tiotropium 18 Mcg/Puff [Spiriva] 1 cap INHALATION RT-DAILY PRN 06/28/16 [History ] metFORMIN HCL [Glucophage] 500 mg PO BID 06/28/16 [History] ALPRAZolam [Xanax] 0.25 mg PO TID PRN 11/21/16 [History] Aspirin [Adult Low Dose Aspirin EC] 81 mg PO DAILY 11/21/16 [History] Docusate Sodium [Dok] 100 mg PO BID 11/21/16 [History] Warfarin [Coumadin] 5 mg PO DAILY 11/21/16 [History] ALPRAZolam [Xanax] 0.25 mg PO TID PRN #30 tab 11/30/16 [Rx] Azithromycin [Zithromax] 500 mg PO DAILY@1800 #7 tab 11/30/16 [Rx] Digoxin [Lanoxin] 125 mcg PO DAILY tab 11/30/16 [Rx] Diltiazem Oral [Cardizem*] 90 mg PO QID #120 tab 11/30/16 [Rx] Ferrous Sulfate [Iron (65 MG Elemental)] 325 mg PO TID tab 11/30/16 [Rx] Furosemide [Lasix] 40 mg PO BID@0900,1600 #60 tab 11/30/16 [Rx] Insulin Glargine [Lantus] 30 unit SQ DAILY #1 vial 11/30/16 [Rx] Ipratropium-Albuterol Nebulize [Duoneb 0.5 mg-3 mg/3 ml Soln] 3 ml INHALATION RT -Q4H PRN #0 ampul.neb 11/30/16 [Rx] Ipratropium-Albuterol Nebulize [Duoneb 0.5 mg-3 mg/3 ml Soln] 3 ml INHALATION RT -TID ampul.neb 11/30/16 [Rx] Metoprolol Tartrate [Lopressor] 100 mg PO BID #60 tab 11/30/16 [Rx] Varenicline [Chantix] 1 mg PO PC-BID tab 11/30/16 [Rx] Warfarin [Coumadin] 5 mg PO DAILY@1800 tab 11/30/16 [Rx] predniSONE 30 mg PO DAILY #14 tab 11/30/16 [Rx] traZODone HCL [Desyrel] 50 mg PO HS #30 tab 11/30/16 [Rx] Follow up Appointment(s)/Referral(s): Chuy Soliman MD [Primary Care Provider] - 1-2 days Dalton Galvan MD [STAFF PHYSICIAN] - 1 Week Ambulatory/Diagnostic Orders: Prothrombin Time INR [LAB.AMB] Time Frame: 12/04/16, Location: Determined By Patient Discharge Disposition: TRANSFER TO SNF/ECF
[2016-11-30 12:13] LABS: Glucose,Whole Blood 137 mg/dL (75-99)
[2016-11-30 13:08] VITALS: BP 115/71; PULSE 70
--- NOTE | 2016-11-30 22:16 | PN ---
DATE OF SERVICE: 11/30/2016 CHIEF COMPLAINT: Syncope and difficulty breathing. HISTORY OF PRESENT ILLNESS: This lady is doing well and she is being evaluated by cardiology and apparently they feel that she is able to be discharged. She will be going to [facility]. PHYSICAL EXAMINATION: VITAL SIGNS: Her chest is quite clear. CARDIAC: Normal. ABDOMEN: Soft, nontender and nontender. EXTREMITIES: Are unchanged. IMPRESSION: 1. Atrial fibrillation. 2. Syncopal event. 3. Congestive heart failure. PLAN: Possibly discharged today. She may be going to [facility] and this will be arranged by the nurse practitioner.
== END 2016-11-30 14:43 | DRG 871 ==
LOC: EC 16:37 → 6SEL 18:44 → 6ICU 20:25 → 6SEL 11-25 13:39
PROVIDERS: ADMIT Family Medicine; ATTEND Family Medicine
DX: A41.9 Sepsis, unspecified organism (principal); I50.33 Acute on chronic diastolic (congestive) heart failure; J15.212 Pneumonia due to Methicillin resistant Staphylococcus aureus; J96.21 Acute and chronic respiratory failure with hypoxia; J44.1 Chronic obstructive pulmonary disease with (acute) exacerbation; J44.0 Chronic obstructive pulmonary disease with (acute) lower respiratory infection; I48.1 Persistent atrial fibrillation; E11.65 Type 2 diabetes mellitus with hyperglycemia; I11.0 Hypertensive heart disease with heart failure; E66.01 Morbid (severe) obesity due to excess calories; I48.0 Paroxysmal atrial fibrillation; E78.5 Hyperlipidemia, unspecified; F17.200 Nicotine dependence, unspecified, uncomplicated; F41.9 Anxiety disorder, unspecified; G47.33 Obstructive sleep apnea (adult) (pediatric); H35.30 Unspecified macular degeneration; I25.10 Atherosclerotic heart disease of native coronary artery without angina pectoris; I25.2 Old myocardial infarction; I48.2 Chronic atrial fibrillation; J45.909 Unspecified asthma, uncomplicated; K21.9 Gastro-esophageal reflux disease without esophagitis; R79.1 Abnormal coagulation profile; T38.0X5A Adverse effect of glucocorticoids and synthetic analogues, initial encounter; T45.515A Adverse effect of anticoagulants, initial encounter; F32.9 Major depressive disorder, single episode, unspecified; Z79.01 Long term (current) use of anticoagulants; Z99.81 Dependence on supplemental oxygen; Z79.82 Long term (current) use of aspirin; Z79.899 Other long term (current) drug therapy; Z85.828 Personal history of other malignant neoplasm of skin; Z91.19 Patient's noncompliance with other medical treatment and regimen; Z95.5 Presence of coronary angioplasty implant and graft; Z82.49 Family history of ischemic heart disease and other diseases of the circulatory system
CPT/HCPCS: 36415; 71010; 71020; 80048; 80053; 80162; 81001; 82550; 82553; 83036; 83605; 83735; 83880; 84100; 84439; 84443; 84484; 85025; 85610; 85730; 87040; 87070; 87077; 87186; 87205; 87502; 93005; 93306; 94640; 94760; 96365; 96367; 99291

== ENCOUNTER → 2017-01-18 | Outpatient (CLI) | payer MEDICARE, OTHER ==
[2017-01-18 13:14] LABS: INR 3.9 (<1.1)
[2017-01-18 13:17] LABS: Basophils # (A) 0.1 k/uL (0-0.2); Basophils % (A) 1 %; CH 29.4; CHCM 32.1; Eosinophils # (A) 0.5 k/uL (0-0.7); Eosinophils % (A) 5 %; HCT 44.4 % (34.0-46.0); HDW 2.61; HGB 14.1 gm/dL (11.4-16.0); Luc # (Auto) 0.18; Luc % (Auto) 2; Lymphocytes # (A) 1.7 k/uL (1.0-4.8); Lymphocytes % (A) 17 %; MCH 29.3 pg (25.0-35.0); MCHC 31.7 g/dL (31.0-37.0); MCV 92.3 fL (80.0-100.0); Monocytes # (A) 0.7 k/uL (0-1.0); Monocytes % (A) 7 %; Neutrophils # (A) 7.1 k/uL (1.3-7.7); Neutrophils % (A) 69 %; RBC 4.81 m/uL (3.80-5.40); RDW 13.6 % (11.5-15.5); WBC 10.3 k/uL (3.8-10.6); WBC (Perox) 10.36
[2017-01-18 13:19] LABS: Calcium 9.3 mg/dL (8.4-10.2); Potassium 3.9 mmol/L (3.5-5.1); Total Bilirubin 0.7 mg/dL (0.2-1.3); Total Protein 6.7 g/dL (6.3-8.2)
== END | disposition home or self-care (01) ==
LOC: LABWHC1 12:17
PROVIDERS: ATTEND Family Medicine
DX: E78.5 Hyperlipidemia, unspecified (principal); D68.9 Coagulation defect, unspecified; E55.9 Vitamin D deficiency, unspecified; R53.81 Other malaise; Z13.220 Encounter for screening for lipoid disorders; Z51.81 Encounter for therapeutic drug level monitoring; Z79.01 Long term (current) use of anticoagulants
CPT/HCPCS: 36415; 80053; 80061; 82306; 84439; 84443; 85025; 85610

== ENCOUNTER → 2017-03-17 | Outpatient (CLI) | payer MEDICARE, OTHER ==
--- NOTE | 2017-03-19 09:14 | PE ---
Nuclear medicine PET/CT HISTORY: Head and neck carcinoma, malignant neoplasm of larynx, C32 Patient received 12.7 mCi F-18 FDG intravenously delayed scanning performed from the skull base to mi d thighs. Small [id number] imaging performed through the head and neck. Attenuation correction and localization CT scan also performed. Correlation to CT soft tissue neck 08/06/2016, chest x-ray 11/27/2016. Head and neck: Abnormal soft tissue is noted the level of the pharyngeal soft tissues on the right, m ass effect present on the piriform sinus on the right as well as the ventricle, there is soft tissue about the hyoid bone on the right and abutting the carotid artery on the right, loss of fat planes is noted. Asymmetric enlargement of the right submandibular gland is noted. There is associated hyperme tabolic uptake present. The poorly defined mass shows SUV value 17-18. Right submandibular gland show s SUV 15-16. Extension of hypermetabolic uptake posterior pharyngeal region towards the midline also noted. Hypermetabolic uptake involving the tongue anteriorly could possibly be physiologic. Correlate clinically. The torus tubarius on the right shows some asymmetric hypermetabolic uptake, SUV is 9-10. Paraspinal musculature towards the base of skull on the right shows some probable involvement, hypermetabolic u ptake is present, SUV 16. Nonenlarged nodes suspected within the left parotid gland shows SUV 3.2 Right jugular port is present, distal tip of the catheter at the cavoatrial junction. CHEST: The heart is enlarged. There are coronary artery calcifications present. Emphysematous changes are present within the lungs. Some right middle lobe atelectatic changes suspected, there are air br onchograms, correlate to exclude pneumonia. No associated hypermetabolic uptake however. Some minimal scarring suspected in the lingula. No mediastinal, axillary, or hilar adenopathy. Abdomen pelvis: Gastric tube is in place. Hypermetabolic uptake associated with the colon is likely p hysiologic. No retroperitoneal adenopathy. No adrenal mass. No pelvic adenopathy. Diverticular change s associated with the colon. No free fluid. Osseous structures: No associated hypermetabolic uptake. Degenerative disc changes are noted in the v isualized spine. Incidental note of injection granuloma. Postop changes the lower lumbar spine. There is disc herniation present. IMPRESSION: Hypermetabolic uptake, soft tissue abnormalities as described compatible with patient's h istory of head and neck carcinoma. Degenerative disc disease, diverticulosis. Additional findings abo ve.
== END | disposition home or self-care (01) ==
LOC: RADPETMAIN 13:53
PROVIDERS: ATTEND Radiology Radiation Oncology
DX: C32.9 Malignant neoplasm of larynx, unspecified (principal)
CPT/HCPCS: 78815; A9552

== ENCOUNTER → 2017-04-24 | Outpatient (CLI) | payer MEDICARE, OTHER ==
--- NOTE | 2017-04-24 11:34 | FL ---
Modified barium swallow. HISTORY: Dysphagia. Modified barium swallow was performed with the department of speech pathology. The patient was prese nted with various consistencies of barium. There is no evidence for aspiration or penetration. Full report is to follow from the department of speech pathology. Impression: No evidence for aspiration penetration.
== END ==
LOC: RADFLMAIN 10:44
PROVIDERS: ATTEND Internal Medicine Hematology & Oncology
DX: R09.3 Abnormal sputum (principal)
CPT/HCPCS: 74230

== ENCOUNTER 2017-04-27 19:14 | Inpatient (IN) | payer MEDICARE, OTHER ==
--- NOTE | 2017-04-27 21:39 | ED ---
Recheck HPI <Patel Gilbert - Last Filed: 04/28/17 00:20> - General Source: patient, family, RN notes reviewed Mode of arrival: wheelchair Limitations: no limitations <Anila Bradley - Last Filed: 04/28/17 03:07> - General Chief Complaint: Recheck/Abnormal Lab/Rx Stated Complaint: Feeding tube problem Time Seen by Provider: 04/27/17 21:07 - History of Present Illness Initial Comments: Patient is a 72-year-old female presents emergency room for evaluation of PEG tube issues. Patient is currently undergoing therapy for throat cancer. Patient had a PEG tube placed about 4 months ago. Starting yesterday she noticed bleeding around the PEG tube at the insertion site. Patient also noticed that after feedings, the formula will come out around the PEG tube. Patient's daughter states they are worried that there is a rupture in the intestines from the PEG tube. Patient's daughter denies patient being on blood thinners. Patient denies any recent trauma to the PEG tube area. Patient states she's having increasing pain around the PEG tube area. Patient states PEG tube was placed in [place]. (Anila Bradley) - Related Data Home Medications Medication Instructions Recorded Confirmed Amoxic-Pot Clav 875-125Mg 1 tab PEG/G-TUBE BID 04/27/17 04/27/17 [Augmentin 875-125] Aspirin 325 mg PEG/G-TUBE DAILY 04/27/17 04/27/17 Atorvastatin [Lipitor] 20 mg PEG/G-TUBE HS 04/27/17 04/27/17 Budesonide [Pulmicort] 0.5 mg INHALATION RT-BID 04/27/17 04/27/17 Dexamethasone [Hexadrol] 2 mg PEG/G-TUBE DAILY 04/27/17 04/27/17 Diltiazem Oral [Cardizem Oral] 30 mg PEG/G-TUBE BID 04/27/17 04/27/17 Diphenox-Atrop 2.5-0.025 mg 2 tab PEG/G-TUBE QID PRN 04/27/17 04/27/17 [Lomotil] Ergocalciferol [Vitamin D2] 50,000 unit PEG/G-TUBE JOINER 04/27/17 04/27/17 Ferrous Sulfate [Feosol] 325 mg PEG/G-TUBE DAILY 04/27/17 04/27/17 Fluconazole [Diflucan] 150 mg PEG/G-TUBE ONCE 04/27/17 04/27/17 Hydrocodone/Acetaminophen [Hycet 15 ml PEG/G-TUBE Q6H PRN 04/27/17 04/27/17 7.5 mg-325 mg/15 ml Soln] Hyoscyamine Sulfate [Hyoscyamine 0.125 mg SUBLINGUAL Q6H PRN 04/27/17 04/27/17 Sulfate SL] Ipratropium-Albuterol Nebulize 3 ml INHALATION RT-Q4H 04/27/17 04/27/17 [Duoneb 0.5 mg-3 mg/3 ml Soln] Metoprolol Tartrate [Lopressor] 50 mg PEG/G-TUBE DAILY 04/27/17 04/27/17 Omeprazole 20 mg PEG/G-TUBE DAILY 04/27/17 04/27/17 Travoprost [Travatan Z 0.004%] 1 drop RIGHT EYE HS 04/27/17 04/27/17 Allergies Allergy/AdvReac Type Severity Reaction Status Date / Time ciprofloxacin [From Cipro] Allergy Rash/Hives Verified 04/27/17 19:21 dofetilide [From Tikosyn] Allergy Rash/Hives Verified 04/27/17 19:21 kiwi Allergy Rash/Hives Verified 04/27/17 19:21 Review of Systems ROS Other: All systems not noted in ROS Statement are negative. <Patel Gilbert - Last Filed: 04/28/17 00:20> ROS Other: All systems not noted in ROS Statement are negative. <Anila Bradley - Last Filed: 04/28/17 03:07> ROS Statement: Those systems with pertinent positive or pertinent negative responses have been documented in the HPI. Past Medical History Past Medical History: Atrial Fibrillation, Coronary Artery Disease (CAD), Cancer , COPD, Diabetes Mellitus, Eye Disorder, GERD/Reflux, Hyperlipidemia, Hypertension, Myocardial Infarction ([place]), Pneumonia, Sleep Apnea/CPAP/BIPAP Additional Past Medical History / Comment(s): Morbid obesity, chronic hypoxic respiratory failure, COPD, obstructive sleep apnea noncompliant to CPAP therapy , chronic atrial fibrillation and the patient has failed cardioversion in the past and she has been maintained on long-term anticoagulation she has also episodes of multifocal atrial tachycardia, previous coronary stenting regarding coronary artery disease, hypertension, hyperlipidemia, diabetes mellitus, macular degeneration, dysphagia, nicotine addiction/smoking the patient has been trying to quit smoking by utilization of Chantix, skin cancer involving the neck and the right cheek that was resected. 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 Last Myocardial Infarction Date:: 2009 History of Any Multi-Drug Resistant Organisms: MRSA Date of last positivie culture/infection: 11/21/16 MDRO Source:: Sputum Past Surgical History: Back Surgery, Bladder Surgery, Heart Catheterization With Stent, Hysterectomy Additional Past Surgical History / Comment(s): right hand carpal tunnel release , aug 2016 had a growth removed from her "vocal cords" Past Anesthesia/Blood Transfusion Reactions: No Reported Reaction Date of Last Stent Placement:: 2009 Past Psychological History: Anxiety, Depression Smoking Status: Former smoker Past Alcohol Use History: None Reported Past Drug Use History: None Reported - Past Family History Mother Family Medical History: Cancer Additional Family Medical History / Comment(s): lung Brother(s) Family Medical History: Cancer Additional Family Medical History / Comment(s): lung Father Family Medical History: Congestive Heart Failure (CHF) <Anila Bradley - Last Filed: 04/28/17 03:07> General Exam <Patel Gilbert - Last Filed: 04/28/17 00:20> Limitations: no limitations General appearance: alert, in no apparent distress Head exam: Present: atraumatic, normocephalic, normal inspection Eye exam: Present: normal appearance ENT exam: Present: normal exam Neck exam: Present: normal inspection Respiratory exam: Present: normal lung sounds bilaterally. Absent: respiratory distress Cardiovascular Exam: Present: regular rate, normal rhythm, normal heart sounds GI/Abdominal exam: Present: soft, tenderness (on palpating around the PEG tube) , other (PEG tube in place, superficial erosion of skin around the PEG tube insertion site with minimal bleeding.). Absent: distended, guarding, rebound, rigid Extremities exam: Present: normal inspection Back exam: Present: normal inspection Neurological exam: Present: alert, oriented X3, CN II-XII intact Psychiatric exam: Present: normal affect, normal mood Skin exam: Present: warm, dry <Anila Bradley - Last Filed: 04/28/17 03:07> - General Exam Comments Initial Comments: sitting in exam room, no acute distress. (Anila Bradley) Medical Decision Making - Lab Data Result diagrams: 04/27/17 22:30 04/27/17 22:30 <Patel Gilbert - Last Filed: 04/28/17 00:20> - Lab Data Result diagrams: 04/27/17 22:30 04/27/17 22:30 - Radiology Data Radiology results: report reviewed, image reviewed <Anila Bradley - Last Filed: 04/28/17 03:07> - Medical Decision Making The patient was seen and examined. All diagnostics were reviewed. The case was discussed with the PA and I agree with the findings as documented. Case will be discussed with medicine in the near future and patient will be admitted with the surgical consultation. (Patel Gilbert) patient is a 72-year-old female presents emergency room for evaluation of PEG tube malfunctioning.CT abdomen/pelvis: Cutaneous G-tube is noted with tip in the gastric body. Moderate amount of edema swelling noted within the adjacent abdominal wall. There are a few locules of gas seen within the mesentery adjacent to the right colon which may represent gas within the small mesenteric veins. There is trace stranding noted about the right hemicolon. Findings are nonspecific and may represent mild focal colitis. Patient will be started on IV antibiotics and admitted for further evaluation. Surgery consult for further evaluation of PEG tube. (Anila Bradley) - Lab Data Lab Results 04/27/17 04/27/17 04/27/17 Range/Units 22:30 22:30 22:30 WBC 3.9 (3.8-10.6) k/uL RBC 3.94 (3.80-5.40) m/uL Hgb 11.7 (11.4-16.0) gm/dL Hct 35.9 (34.0-46.0) % MCV 91.0 (80.0-100.0) fL MCH 29.6 (25.0-35.0) pg MCHC 32.5 (31.0-37.0) g/dL RDW 19.7 H (11.5-15.5) % Plt Count 403 (150-450) k/uL Neutrophils % 66 % Lymphocytes % 26 % Monocytes % 5 % Eosinophils % 1 % Basophils % 0 % Neutrophils # 2.5 (1.3-7.7) k/uL Lymphocytes # 1.0 (1.0-4.8) k/uL Monocytes # 0.2 (0-1.0) k/uL Eosinophils # 0.0 (0-0.7) k/uL Basophils # 0.0 (0-0.2) k/uL Manual Slide Review Performed Polychromasia Present Poikilocytosis (manual Present Anisocytosis Slight Anisocytosis (manual) Present Ovalocytes Present PT 11.4 (9.0-12.0) sec INR 1.1 (<1.2) APTT 27.7 (22.0-30.0) sec Sodium 133 L (137-145) mmol/L Potassium 4.0 (3.5-5.1) mmol/L Chloride 95 L (98-107) mmol/L Carbon Dioxide 28 (22-30) mmol/L Anion Gap 10 mmol/L BUN 21 H (7-17) mg/dL Creatinine 0.40 L (0.52-1.04) mg/dL Est GFR (MDRD) Af Amer >60 (>60 ml/min/1.73 sqM) Est GFR (MDRD) Non-Af >60 (>60 ml/min/1.73 sqM) Glucose 119 H (74-99) mg/dL Plasma Lactic Acid Eddie (0.7-2.0) mmol/L Calcium 9.3 (8.4-10.2) mg/dL Total Bilirubin 0.7 (0.2-1.3) mg/dL AST 17 (14-36) U/L ALT 44 (9-52) U/L Alkaline Phosphatase 95 (38-126) U/L Total Protein 5.6 L (6.3-8.2) g/dL Albumin 3.2 L (3.5-5.0) g/dL 04/27/17 Range/Units 22:30 WBC (3.8-10.6) k/uL RBC (3.80-5.40) m/uL Hgb (11.4-16.0) gm/dL Hct (34.0-46.0) % MCV (80.0-100.0) fL MCH (25.0-35.0) pg MCHC (31.0-37.0) g/dL RDW (11.5-15.5) % Plt Count (150-450) k/uL Neutrophils % % Lymphocytes % % Monocytes % % Eosinophils % % Basophils % % Neutrophils # (1.3-7.7) k/uL Lymphocytes # (1.0-4.8) k/uL Monocytes # (0-1.0) k/uL Eosinophils # (0-0.7) k/uL Basophils # (0-0.2) k/uL Manual Slide Review Polychromasia Poikilocytosis (manual Anisocytosis Anisocytosis (manual) Ovalocytes PT (9.0-12.0) sec INR (<1.2) APTT (22.0-30.0) sec Sodium (137-145) mmol/L Potassium (3.5-5.1) mmol/L Chloride (98-107) mmol/L Carbon Dioxide (22-30) mmol/L Anion Gap mmol/L BUN (7-17) mg/dL Creatinine (0.52-1.04) mg/dL Est GFR (MDRD) Af Amer (>60 ml/min/1.73 sqM) Est GFR (MDRD) Non-Af (>60 ml/min/1.73 sqM) Glucose (74-99) mg/dL Plasma Lactic Acid Eddie 1.1 (0.7-2.0) mmol/L Calcium (8.4-10.2) mg/dL Total Bilirubin (0.2-1.3) mg/dL AST (14-36) U/L ALT (9-52) U/L Alkaline Phosphatase (38-126) U/L Total Protein (6.3-8.2) g/dL Albumin (3.5-5.0) g/dL Disposition <Patel Gilbert - Last Filed: 04/28/17 00:20> Decision Date: 04/28/17 <Anila Bradley - Last Filed: 04/28/17 03:07> Clinical Impression: Colitis, Abdominal wall cellulitis, PEG tube malfunction Disposition: ADMITTED IP TO THIS [facility] Condition: Stable
[2017-04-27] MEDS ORDERED: RX INFO: IV CONTRAST WAS GIVEN 1 EACH MISC MISCELLANE PRN (21:55)
[2017-04-27] MEDS ORDERED: SODIUM CHLORIDE 0.9% 1,000 ML IV ONE (21:56)
[2017-04-27] MEDS ORDERED: DILTIAZEM 5 MG/ML 5 ML VIAL IV STA (21:57)
[2017-04-27 22:55] LABS: Anisocytosis Slight; Basophils % (A) 0 %; CH 30.2; CHCM 33.3; Eosinophils % (A) 1 %; HCT 35.9 % (34.0-46.0); HDW 2.72; HGB 11.7 gm/dL (11.4-16.0); Immature Gran Flag Slight; Luc # (Auto) 0.06; Luc % (Auto) 2; Lymphocytes % (A) 26 %; MCH 29.6 pg (25.0-35.0); MCHC 32.5 g/dL (31.0-37.0); Mean Platelet Volume 8.4; Monocytes # (A) 0.2 k/uL (0-1.0); Monocytes % (A) 5 %; Neutrophils # (A) 2.5 k/uL (1.3-7.7); Neutrophils % (A) 66 %; RBC 3.94 m/uL (3.80-5.40); RDW 19.7 % (11.5-15.5); WBC 3.9 k/uL (3.8-10.6); WBC (Perox) 4.04
[2017-04-27 23:00] LABS: INR 1.1 (<1.2); Partial Thromboplastin Time 27.7 sec (22.0-30.0); Prothrombin Time 11.4 sec (9.0-12.0)
[2017-04-27 23:02] LABS: ALT 44 U/L (9-52); AST 17 U/L (14-36); Alkaline Phosphatase 95 U/L (38-126); Anion Gap 10 mmol/L; Blood Urea Nitrogen 21 mg/dL (7-17); Calcium 9.3 mg/dL (8.4-10.2); Carbon Dioxide 28 mmol/L (22-30); Chloride 95 mmol/L (98-107); Glucose 119 mg/dL (74-99); Non-African American GFR(MDRD) >60 (>60 ml/min/1.73 sqM); Sodium 133 mmol/L (137-145); Total Bilirubin 0.7 mg/dL (0.2-1.3); Total Protein 5.6 g/dL (6.3-8.2)
[2017-04-27 23:12] LABS: Manual Review Performed; Ovalocytes Present
[2017-04-27 23:15] LABS: Polychromasia Present
[2017-04-27] MEDS ORDERED: DILTIAZEM 5 MG/ML 5 ML VIAL IVP STA (23:49)
--- NOTE | 2017-04-28 00:10 | CT ---
EXAM: CT Abdomen and Pelvis With Intravenous Contrast CLINICAL HISTORY: Pain TECHNIQUE: Axial computed tomography images of the abdomen and pelvis with intravenous contrast. CTDI is 10.80 10.80 mGy and DLP is 761 mGy-cm. This CT exam was performed using one or more of the following dose reduction techniques: automated exposure control, adjustment of the mA and/or kV according to patient size, and/or use of iterative reconstruction technique. COMPARISON: No relevant prior studies available. FINDINGS: Lower thorax: Probable atelectasis and scarring noted within the lingula and right middle lobe. ABDOMEN: Liver: Unremarkable. Gallbladder and bile ducts: Unremarkable. Pancreas: Unremarkable. Spleen: Unremarkable. Adrenals: Unremarkable. Kidneys and ureters: Unremarkable. Stomach and bowel: Cutaneous G-tube is noted with tip in the gastric body. Moderate amount of edema swelling noted within the adjacent abdominal wall. There are few locules of gas seen within the mesentery adjacent to the right colon which may represent gas within the small mesenteric veins. There is trace stranding noted about the right hemicolon. Non-inflamed colonic diverticulosis. Appendix: The appendix is nonvisualized and may be surgically absent. PELVIS: Bladder: Unremarkable. Reproductive: Unremarkable as visualized. ABDOMEN and PELVIS: Intraperitoneal space: Unremarkable. Bones/joints: Degenerative changes of the osseous structures. No acute fracture. No dislocation. Soft tissues: Fat containing umbilical hernia. Vasculature: Vascular calcifications are noted. Lymph nodes: Unremarkable. IMPRESSION: 1. Cutaneous G-tube is noted with tip in the gastric body. Moderate amount of edema swelling noted within the adjacent abdominal wall. 2. There are few locules of gas seen within the mesentery adjacent to the right colon which may represent gas within the small mesenteric veins. There is trace stranding noted about the right hemicolon. Findings are non-specific and may represent mild focal colitis.
[2017-04-28] MEDS ORDERED: MORPHINE SULFATE 4 MG/ML SYRINGE IV PRN (00:23)
[2017-04-28] MEDS ORDERED: NALOXONE 0.4 MG/ML 1 ML VIAL IV PRN (00:23)
[2017-04-28] MEDS ORDERED: PIPERACILLIN-TAZOBACTAM 3.375 GM in DEXTROSE/WATER 1 50ML.BAG IVPB STA (00:27)
[2017-04-28] MEDS ORDERED: DIPHENOX-ATROP 2.5-0.025 MG 1 EACH TAB PEG/G-TUBE PRN (00:27)
[2017-04-28 02:33] VITALS: BMI 29.6
[2017-04-28] MEDS: IPRATROPIUM-ALBUTEROL 3 ML NEB INHALATION SCH ×5 (04:33→19:29)
[2017-04-28 07:33] LABS: Anisocytosis Slight; Basophils % (A) 1 %; CHCM 32.6; Eosinophils % (A) 2 %; HCT 34.4 % (34.0-46.0); HDW 2.66; HGB 11.2 gm/dL (11.4-16.0); Luc # (Auto) 0.06; Luc % (Auto) 2; Lymphocytes % (A) 33 %; MCH 30.1 pg (25.0-35.0); MCHC 32.6 g/dL (31.0-37.0); MCV 92.2 fL (80.0-100.0); Macrocytosis Slight; Mean Platelet Volume 8.5; Monocytes # (A) 0.3 k/uL (0-1.0); Monocytes % (A) 9 %; Neutrophils # (A) 1.6 k/uL (1.3-7.7); Neutrophils % (A) 53 %; RBC 3.73 m/uL (3.80-5.40); RDW 19.8 % (11.5-15.5); WBC (Perox) 2.99
[2017-04-28] MEDS: BUDESONIDE 0.5 MG/2 ML NEBU INHALATION SCH ×2 (07:40→19:29)
[2017-04-28 07:46] LABS: ALT 32 U/L (9-52); AST 15 U/L (14-36); Alkaline Phosphatase 84 U/L (38-126); Anion Gap 7 mmol/L; Blood Urea Nitrogen 16 mg/dL (7-17); Calcium 8.5 mg/dL (8.4-10.2); Carbon Dioxide 29 mmol/L (22-30); Chloride 99 mmol/L (98-107); Glucose 118 mg/dL (74-99); Non-African American GFR(MDRD) >60 (>60 ml/min/1.73 sqM); Potassium 3.7 mmol/L (3.5-5.1); Sodium 135 mmol/L (137-145); Total Bilirubin 0.5 mg/dL (0.2-1.3); Total Protein 4.9 g/dL (6.3-8.2)
[2017-04-28] MEDS: SODIUM CHLORIDE 0.9% 1,000 ML IV SCH ×3 (08:15→22:14)
[2017-04-28] MEDS: DEXAMETHASONE 2 MG TAB PEG/G-TUBE SCH (08:17)
[2017-04-28] MEDS: ASPIRIN 325 MG TAB PEG/G-TUBE SCH (08:17)
[2017-04-28] MEDS: METOPROLOL TARTRATE 50 MG TAB PEG/G-TUBE SCH (08:18)
[2017-04-28] MEDS: DILTIAZEM ORAL 30 MG TAB PEG/G-TUBE SCH ×2 (08:18→22:13)
[2017-04-28] MEDS: PANTOPRAZOLE SODIUM 40 MG GRANULE PKT PEG/G-TUBE SCH (08:18)
--- NOTE | 2017-04-28 12:08 | P.GSCN ---
History of Present Illness Consult date: 04/28/17 Reason for Consult: PEG tube, cellulitis History of present illness: The patient has throat cancer. She therefore had a PEG tube placed in January. After her last chemo she noticed increased discomfort at the PEG site with drainage. She was admitted with cellulitis. Abdominal discomfort is near the PEG tube site and, none on the left lower quadrant. No problems with diarrhea. SHe's had some constipation. No previous problems with infection near the PEG tube. Normally no significant drainage. Review of Systems All systems: negative Past Medical History Past Medical History: Atrial Fibrillation, Coronary Artery Disease (CAD), Cancer , COPD, Diabetes Mellitus, Eye Disorder, GERD/Reflux, Hyperlipidemia, Hypertension, Myocardial Infarction ([place]), Pneumonia, Sleep Apnea/CPAP/BIPAP Additional Past Medical History / Comment(s): Morbid obesity, chronic hypoxic respiratory failure, COPD, obstructive sleep apnea noncompliant to CPAP therapy , chronic atrial fibrillation and the patient has failed cardioversion in the past and she has been maintained on long-term anticoagulation she has also episodes of multifocal atrial tachycardia, previous coronary stenting regarding coronary artery disease, hypertension, hyperlipidemia, diabetes mellitus, macular degeneration, dysphagia, nicotine addiction/smoking the patient has been trying to quit smoking by utilization of Chantix, skin cancer involving the neck and the right cheek that was resected. 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 Last Myocardial Infarction Date:: 2009 History of Any Multi-Drug Resistant Organisms: MRSA Year Discovered:: 11/21/16 MDRO Source:: Sputum Past Surgical History: Back Surgery, Bladder Surgery, Heart Catheterization With Stent, Hysterectomy Additional Past Surgical History / Comment(s): right hand carpal tunnel release , aug 2016 had a growth removed from her "vocal cords" Past Anesthesia/Blood Transfusion Reactions: No Reported Reaction Date of Last Stent Placement:: 2009 Past Psychological History: Anxiety, Depression Smoking Status: Former smoker Past Alcohol Use History: None Reported Past Drug Use History: None Reported - Past Family History Mother Family Medical History: Cancer Additional Family Medical History / Comment(s): lung Brother(s) Family Medical History: Cancer Additional Family Medical History / Comment(s): lung Father Family Medical History: Congestive Heart Failure (CHF) Medications and Allergies Home Medications Medication Instructions Recorded Confirmed Type Amoxic-Pot Clav 875-125Mg 1 tab PEG/G-TUBE BID 04/27/17 04/27/17 History [Augmentin 875-125] Aspirin 325 mg PEG/G-TUBE DAILY 04/27/17 04/27/17 History Atorvastatin [Lipitor] 20 mg PEG/G-TUBE HS 04/27/17 04/27/17 History Budesonide [Pulmicort] 0.5 mg INHALATION RT-BID 04/27/17 04/27/17 History Dexamethasone [Hexadrol] 2 mg PEG/G-TUBE DAILY 04/27/17 04/27/17 History Diltiazem Oral [Cardizem Oral] 30 mg PEG/G-TUBE BID 04/27/17 04/27/17 History Diphenox-Atrop 2.5-0.025 mg 2 tab PEG/G-TUBE QID PRN 04/27/17 04/27/17 History [Lomotil] Ergocalciferol [Vitamin D2] 50,000 unit PEG/G-TUBE JOINER 04/27/17 04/27/17 History Ferrous Sulfate [Feosol] 325 mg PEG/G-TUBE DAILY 04/27/17 04/27/17 History Fluconazole [Diflucan] 150 mg PEG/G-TUBE ONCE 04/27/17 04/27/17 History Hydrocodone/Acetaminophen [Hycet 15 ml PEG/G-TUBE Q6H PRN 04/27/17 04/27/17 History 7.5 mg-325 mg/15 ml Soln] Hyoscyamine Sulfate [Hyoscyamine 0.125 mg SUBLINGUAL Q6H PRN 04/27/17 04/27/17 History Sulfate SL] Ipratropium-Albuterol Nebulize 3 ml INHALATION RT-Q4H 04/27/17 04/27/17 History [Duoneb 0.5 mg-3 mg/3 ml Soln] Metoprolol Tartrate [Lopressor] 50 mg PEG/G-TUBE DAILY 04/27/17 04/27/17 History Omeprazole 20 mg PEG/G-TUBE DAILY 04/27/17 04/27/17 History Travoprost [Travatan Z 0.004%] 1 drop RIGHT EYE HS 04/27/17 04/27/17 History Allergies Allergy/AdvReac Type Severity Reaction Status Date / Time ciprofloxacin [From Cipro] Allergy Rash/Hives Verified 04/27/17 19:21 dofetilide [From Tikosyn] Allergy Rash/Hives Verified 04/27/17 19:21 kiwi Allergy Rash/Hives Verified 04/27/17 19:21 Surgical - Exam Osteopathic Statement: *. No significant issues noted on an osteopathic structural exam other than those noted in the History and Physical/Consult. Vital Signs Temp Pulse Resp BP Pulse Ox 98.3 F 67 18 144/103 97 04/27/17 19:18 04/27/17 19:18 04/27/17 19:18 04/27/17 19:18 04/27/17 19:18 - General Cooperative, coughing up thick secretions - Abdomen The PEG tube is in place at 4 cm. The bolster is loose. Medially there is about a 1-1/2 cm area of skin opening. There is a little bloody drainage. A Q- tip was used to probe around the PEG tube circumferentially. There is some bloody drainage with some granular material. No evidence of any undrained abscess. It's approximately 3's to 4 cm deep. She has no significant lower abdominal tenderness guarding, rebound Abdomen: soft, bowel sounds Results - Labs 04/28/17 06:35 04/28/17 06:35 Abnormal Lab Results - Last 24 Hours (Table) 04/27/17 04/27/17 04/28/17 Range/Units 22:30 22:30 06:35 WBC 3.0 L (3.8-10.6) k/uL RBC 3.73 L (3.80-5.40) m/uL Hgb 11.2 L (11.4-16.0) gm/dL RDW 19.7 H 19.8 H (11.5-15.5) % Sodium 133 L (137-145) mmol/L Chloride 95 L (98-107) mmol/L BUN 21 H (7-17) mg/dL Creatinine 0.40 L (0.52-1.04) mg/dL Glucose 119 H (74-99) mg/dL Total Protein 5.6 L (6.3-8.2) g/dL Albumin 3.2 L (3.5-5.0) g/dL 04/28/17 Range/Units 06:35 WBC (3.8-10.6) k/uL RBC (3.80-5.40) m/uL Hgb (11.4-16.0) gm/dL RDW (11.5-15.5) % Sodium 135 L (137-145) mmol/L Chloride (98-107) mmol/L BUN (7-17) mg/dL Creatinine 0.39 L (0.52-1.04) mg/dL Glucose 118 H (74-99) mg/dL Total Protein 4.9 L (6.3-8.2) g/dL Albumin 2.8 L (3.5-5.0) g/dL Diabetes panel 04/27/17 04/28/17 Range/Units 22:30 06:35 Sodium 133 L 135 L (137-145) mmol/L Potassium 4.0 3.7 (3.5-5.1) mmol/L Chloride 95 L 99 (98-107) mmol/L Carbon Dioxide 28 29 (22-30) mmol/L BUN 21 H 16 (7-17) mg/dL Creatinine 0.40 L 0.39 L (0.52-1.04) mg/dL Glucose 119 H 118 H (74-99) mg/dL Calcium 9.3 8.5 (8.4-10.2) mg/dL AST 17 15 (14-36) U/L ALT 44 32 (9-52) U/L Alkaline Phosphatase 95 84 (38-126) U/L Total Protein 5.6 L 4.9 L (6.3-8.2) g/dL Albumin 3.2 L 2.8 L (3.5-5.0) g/dL Calcium panel 04/27/17 04/28/17 Range/Units 22:30 06:35 Calcium 9.3 8.5 (8.4-10.2) mg/dL Albumin 3.2 L 2.8 L (3.5-5.0) g/dL Pituitary panel 04/27/17 04/28/17 Range/Units 22:30 06:35 Sodium 133 L 135 L (137-145) mmol/L Potassium 4.0 3.7 (3.5-5.1) mmol/L Chloride 95 L 99 (98-107) mmol/L Carbon Dioxide 28 29 (22-30) mmol/L BUN 21 H 16 (7-17) mg/dL Creatinine 0.40 L 0.39 L (0.52-1.04) mg/dL Glucose 119 H 118 H (74-99) mg/dL Calcium 9.3 8.5 (8.4-10.2) mg/dL Adrenal panel 04/27/17 04/28/17 Range/Units 22:30 06:35 Sodium 133 L 135 L (137-145) mmol/L Potassium 4.0 3.7 (3.5-5.1) mmol/L Chloride 95 L 99 (98-107) mmol/L Carbon Dioxide 28 29 (22-30) mmol/L BUN 21 H 16 (7-17) mg/dL Creatinine 0.40 L 0.39 L (0.52-1.04) mg/dL Glucose 119 H 118 H (74-99) mg/dL Calcium 9.3 8.5 (8.4-10.2) mg/dL Total Bilirubin 0.7 0.5 (0.2-1.3) mg/dL AST 17 15 (14-36) U/L ALT 44 32 (9-52) U/L Alkaline Phosphatase 95 84 (38-126) U/L Total Protein 5.6 L 4.9 L (6.3-8.2) g/dL Albumin 3.2 L 2.8 L (3.5-5.0) g/dL - Imaging CT scan - abdomen: report reviewed, image reviewed Assessment and Plan (1) Abdominal wall cellulitis Status: Acute (2) Cough Status: Acute Plan: At this point I do not see a drainable abscess. The PEG tube is in appropriate position within the stomach. Can be used for feeding. We'll start local wound care around the PEG tube along with IV antibiotics. I will reevaluate the wound. If it worsens she may need to have the PEG tube removed and it would be necessary to place it in a different position in the future. Further recommendations to follow.
[2017-04-28] MEDS: LATANOPROST 0.005% OPHTH DROPS 2.5 ML BTL RIGHT EYE SCH (22:14)
[2017-04-28] MEDS: ATORVASTATIN 20 MG TAB PEG/G-TUBE SCH (22:14)
[2017-04-29] MEDS: IPRATROPIUM-ALBUTEROL 3 ML NEB INHALATION SCH ×6 (00:13→20:57)
[2017-04-29] MEDS ORDERED: ERGOCALCIFEROL 50,000 UNIT CAP PEG/G-TUBE SCH (00:27)
[2017-04-29] MEDS: SODIUM CHLORIDE 0.9% 1,000 ML IV SCH ×3 (07:27→18:05)
[2017-04-29] MEDS: BUDESONIDE 0.5 MG/2 ML NEBU INHALATION SCH ×2 (07:28→20:57)
[2017-04-29] MEDS: PANTOPRAZOLE SODIUM 40 MG GRANULE PKT PEG/G-TUBE SCH (07:29)
[2017-04-29] MEDS: ASPIRIN 325 MG TAB PEG/G-TUBE SCH (07:30)
[2017-04-29] MEDS: METOPROLOL TARTRATE 50 MG TAB PEG/G-TUBE SCH (07:30)
[2017-04-29] MEDS: DEXAMETHASONE 2 MG TAB PEG/G-TUBE SCH (07:30)
[2017-04-29] MEDS: DILTIAZEM ORAL 30 MG TAB PEG/G-TUBE SCH ×2 (07:30→22:39)
--- NOTE | 2017-04-29 09:25 | HP ---
DATE OF SERVICE: 04/28/2017 CHIEF COMPLAINT: Pain in the abdominal wall. HISTORY OF PRESENT ILLNESS: This is another admission for this 72-year-old white female who is being treated for malignancy in the neck. She has PEG tube. She started to notice some pain, swelling and redness in the PEG tube site and was brought in for treatment of what is thought to be a cellulitis. She is currently undergoing treatment for her malignancy. REVIEW OF SYSTEMS: She has had no headaches, neurological problems, confusion, change in the vision or hearing, cough, hemoptysis, chest pain, palpitations, syncope, vomiting, hematemesis, diarrhea, jaundice, etc. Past medical history, family history, personal and social histories are otherwise unchanged. She has a history of coronary artery disease with placements of stents. She also has chronic obstructive pulmonary disease and reactive airway disease. PHYSICAL EXAM: Blood pressure 92/68 with pulse of 92, respirations of 18 and she is afebrile. In general she appeared to be pale and chronically ill. She has lost most of her scalp hair. Pupils equal, round and reactive. Ears, nose, mouth, and throat were normal. Neck veins were not distended. Chest was clear. Cardiac exam demonstrated what sounded like atrial fibrillation with rapid ventricular response rate. The abdomen was soft and nontender and there was a PEG tube in the left upper quadrant and surrounding cellulitis and edema. Extremities are normal. Neurologically she is intact. She is admitted to the hospital with diagnoses: 1. Cellulitis of abdominal wall. 2. Metastatic neoplasm of the neck. 3. Chronic obstructive pulmonary disease. 4. Coronary artery disease. PLAN: 1. Bed rest. 2. IV fluids. 3. IV antibiotics. 4. Consult with Oncology. CLAUDIO
--- NOTE | 2017-04-29 11:55 | P.PN ---
Subjective Principal diagnosis: Abdominal wall cellulitis The patient is feeling better today. There is less discomfort by the PEG tube site. She's been receiving tube feedings and tolerating those without leakage. No abdominal pain, nausea, vomiting Objective - Vital Signs Vital signs: Vital Signs Temp 98 F 04/29/17 07:00 Pulse 103 H 04/29/17 11:35 Resp 18 04/29/17 07:00 BP 127/81 04/29/17 07:00 Pulse Ox 100 04/29/17 07:00 Intake & Output 04/28/17 04/29/17 04/29/17 18:59 06:59 18:59 Intake Total 1040 360 40 Balance 1040 360 40 Weight 72.5 kg 72.5 kg Intake: Intake, IV Titration 800 Amount Sodium Chloride 0.9% 1, 800 000 ml @ 100 mls/hr IV . Q10H [facility] Rx#:[id number] Oral 240 Tube Feeding 360 40 Other: Voiding Method Toilet Toilet Toilet # Voids 3 3 - Constitutional Constitutional Comment(s): Chronically ill-appearing General appearance: Present: cooperative - Gastrointestinal General gastrointestinal: Present: normal bowel sounds, soft, tenderness ( Around the gastrostomy tube site) - Integumentary Integumentary Comment(s): She still has evidence of some cellulitis and induration near the PEG tube site. It appears to be slightly less than yesterday. It's not particularly tender. - Labs CBC & Chem 7: 04/28/17 06:35 04/28/17 06:35 Labs: Microbiology - Last 24 Hours (Table) 04/27/17 22:30 Blood Culture - Preliminary Blood No Growth after 24 hours Assessment and Plan (1) Abdominal wall cellulitis Status: Acute (2) Cough Status: Acute Plan: Continue IV antibiotics and local wound care. Continue tube feedings. We'll reevaluate her tomorrow.
[2017-04-29 16:13] VITALS: RESP 20
[2017-04-29] MEDS: LATANOPROST 0.005% OPHTH DROPS 2.5 ML BTL RIGHT EYE SCH (22:39)
[2017-04-29] MEDS: ATORVASTATIN 20 MG TAB PEG/G-TUBE SCH (22:39)
[2017-04-30] MEDS: IPRATROPIUM-ALBUTEROL 3 ML NEB INHALATION SCH ×5 (01:31→14:49)
[2017-04-30] MEDS: BUDESONIDE 0.5 MG/2 ML NEBU INHALATION SCH (06:52)
[2017-04-30 08:01] VITALS: BP 149/78; TEMP 98
[2017-04-30] MEDS: DEXAMETHASONE 2 MG TAB PEG/G-TUBE SCH (08:42)
[2017-04-30] MEDS: ASPIRIN 325 MG TAB PEG/G-TUBE SCH (08:42)
[2017-04-30] MEDS: DILTIAZEM ORAL 30 MG TAB PEG/G-TUBE SCH (08:42)
[2017-04-30] MEDS: PANTOPRAZOLE SODIUM 40 MG GRANULE PKT PEG/G-TUBE SCH (08:42)
[2017-04-30] MEDS: METOPROLOL TARTRATE 50 MG TAB PEG/G-TUBE SCH (08:42)
[2017-04-30] MEDS: SODIUM CHLORIDE 0.9% 1,000 ML IV SCH (08:43)
--- NOTE | 2017-04-30 11:52 | PN ---
CHIEF COMPLAINT: Cellulitis at abdominal wall at PEG tube site. HISTORY OF PRESENT ILLNESS: This lady is doing well. She has had no fever or chills. The site has been cleaned out by surgery. She is not having any pain, fever or chills. PHYSICAL EXAMINATION: She remains pale. Chronically ill in appearance. Chest is clear. Cardiac exam is normal. The PEG tube site is dressed. Bowel sounds present. IMPRESSION: 1. Cellulitis abdominal wall. 2. 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 PLAN: Home when approved by surgery. CLAUDIO
[2017-04-30 15:00] VITALS: PULSE 112
--- NOTE | 2017-05-01 09:47 | DS ---
CHIEF COMPLAINT: Cellulitis around PEG tube site. HISTORY OF PRESENT ILLNESS AND PHYSICAL EXAM: Details of this lady's history and physical can be found in the initial workup. LABORATORY STUDIES: While she was in the hospital she had laboratory studies, details of which can be found in the laboratory section of her chart. COURSE IN THE HOSPITAL: After she was admitted, she was placed on bed rest and seen by Surgery. There was some debridement of necrotic tissue around the PEG tube site and her pain is relieved. There is no sign of significant infection and it was felt that she could go home on the . She will go home on her usual activity, diet and medications and will be on Keflex 250 mg q.i.d. and followed up with home nursing. FINAL DIAGNOSES: 1. Cellulitis around PEG tube site. 2. Metastatic neoplasm in the neck. OPERATIONS: None. CONSULTATIONS: General Surgery. She is improved. CLAUDIO
== END 2017-04-30 19:08 | disposition home health service (06) | DRG 603 ==
LOC: EC 19:14 → 5ONC 04-28 00:21
PROVIDERS: ADMIT Family Medicine; ATTEND Family Medicine
PROC: 3E0G76Z Introduction of Nutritional Substance into Upper GI, Via Natural or Artificial Opening (ICD-10-PCS; principal; 2017-04-28)
DX: L03.311 Cellulitis of abdominal wall (principal); C79.9 Secondary malignant neoplasm of unspecified site; I48.2 Chronic atrial fibrillation; J44.9 Chronic obstructive pulmonary disease, unspecified; C76.0 Malignant neoplasm of head, face and neck; K94.23 Gastrostomy malfunction; I25.10 Atherosclerotic heart disease of native coronary artery without angina pectoris; I25.2 Old myocardial infarction; I10 Essential (primary) hypertension; E78.5 Hyperlipidemia, unspecified; K59.00 Constipation, unspecified; K21.9 Gastro-esophageal reflux disease without esophagitis; K94.21 Gastrostomy hemorrhage; E11.9 Type 2 diabetes mellitus without complications; F41.9 Anxiety disorder, unspecified; F32.9 Major depressive disorder, single episode, unspecified; H35.30 Unspecified macular degeneration; G47.33 Obstructive sleep apnea (adult) (pediatric); Z71.3 Dietary counseling and surveillance; Z87.891 Personal history of nicotine dependence; Z86.79 Personal history of other diseases of the circulatory system; Z87.19 Personal history of other diseases of the digestive system; Z79.899 Other long term (current) drug therapy; Z82.49 Family history of ischemic heart disease and other diseases of the circulatory system; Z95.5 Presence of coronary angioplasty implant and graft; Z79.82 Long term (current) use of aspirin; Z87.01 Personal history of pneumonia (recurrent); Z86.14 Personal history of Methicillin resistant Staphylococcus aureus infection; Z92.21 Personal history of antineoplastic chemotherapy; Z86.19 Personal history of other infectious and parasitic diseases; Z79.2 Long term (current) use of antibiotics; Z79.51 Long term (current) use of inhaled steroids; Z88.6 Allergy status to analgesic agent; Z88.1 Allergy status to other antibiotic agents; Z88.8 Allergy status to other drugs, medicaments and biological substances; Z91.018 Allergy to other foods; Z86.39 Personal history of other endocrine, nutritional and metabolic disease; Z80.1 Family history of malignant neoplasm of trachea, bronchus and lung; Z90.710 Acquired absence of both cervix and uterus; Z91.19 Patient's noncompliance with other medical treatment and regimen; Z87.09 Personal history of other diseases of the respiratory system; Y83.3 Surgical operation with formation of external stoma as the cause of abnormal reaction of the patient, or of later complication, without mention of misadventure at the time of the procedure
CPT/HCPCS: 36415; 74177; 80053; 83605; 85025; 85610; 85730; 87040; 94640; 96361; 96374; 96375; 99285

== ENCOUNTER 2017-05-01 10:15 | Inpatient (IN) | payer MEDICARE, OTHER ==
[2017-05-01] MEDS ORDERED: SODIUM CHLORIDE 0.9% 500 ML IV STA (11:03)
[2017-05-01] MEDS ORDERED: SODIUM CHLORIDE 0.9% 1,000 ML IV STA (11:03)
[2017-05-01] MEDS ORDERED: IPRATROPIUM-ALBUTEROL 3 ML NEB INHALATION STA (11:20)
--- NOTE | 2017-05-01 11:25 | ED ---
General Adult HPI - General Chief complaint: Skin/Abscess/Foreign Body Stated complaint: revisit peg tube issues Time Seen by Provider: 05/01/17 10:42 Source: family, RN notes reviewed Mode of arrival: wheelchair Limitations: no limitations - History of Present Illness Initial comments: Patient is a 72-year-old female who presents emergency room today with a chief complaint of leaking coming from around the PEG tube. She does admit that she was recently admitted and discharged home yesterday for this complaint. She states that there was some mild bleeding coming from the site yesterday before discharge. She states that at night leaking began once again. Patient's family member at bedside states she's tried overfeeding this morning and a lot of bile came back up around the site. She states a outpatient nurse was to the house this morning advised coming back here to the emergency room. Patient denies any complaints or symptoms at this time. Patient denies any recent fever , chills, shortness of breath, chest pain, back pain, abdominal pain, nausea or vomiting, numbness or tingling, dysuria or hematuria, constipation or diarrhea, headaches or visual changes, or any other complaints. - Related Data Home Medications Medication Instructions Recorded Confirmed Aspirin 325 mg PEG/G-TUBE DAILY 04/27/17 05/01/17 Atorvastatin [Lipitor] 20 mg PEG/G-TUBE HS 04/27/17 05/01/17 Budesonide [Pulmicort] 0.5 mg INHALATION RT-BID 04/27/17 05/01/17 Dexamethasone [Hexadrol] 2 mg PEG/G-TUBE DAILY 04/27/17 05/01/17 Diltiazem Oral [Cardizem Oral] 30 mg PEG/G-TUBE TID 04/27/17 05/01/17 Diphenox-Atrop 2.5-0.025 mg 2 tab PEG/G-TUBE Q4H PRN 04/27/17 05/01/17 [Lomotil] Ergocalciferol [Vitamin D2] 50,000 unit PEG/G-TUBE JOINER 04/27/17 05/01/17 Hyoscyamine Sulfate [Hyoscyamine 0.125 mg SUBLINGUAL Q6H PRN 04/27/17 05/01/17 Sulfate SL] Ipratropium-Albuterol Nebulize 3 ml INHALATION RT-Q4H 04/27/17 05/01/17 [Duoneb 0.5 mg-3 mg/3 ml Soln] Cephalexin [Keflex] 250 mg PO QID 05/01/17 05/01/17 Metoprolol Tartrate 25 mg PEG/G-TUBE BID 05/01/17 05/01/17 Ondansetron Odt [Zofran Odt] 8 mg PO Q12HR 05/01/17 05/01/17 Allergies Allergy/AdvReac Type Severity Reaction Status Date / Time ciprofloxacin [From Cipro] Allergy Rash/Hives Verified 05/01/17 10:40 dofetilide [From Tikosyn] Allergy Rash/Hives Verified 05/01/17 10:40 kiwi Allergy Rash/Hives Verified 05/01/17 10:40 naproxen [From Naprosyn] Allergy Itching Verified 05/01/17 10:40 Review of Systems ROS Statement: Those systems with pertinent positive or pertinent negative responses have been documented in the HPI. ROS Other: All systems not noted in ROS Statement are negative. Past Medical History Past Medical History: Atrial Fibrillation, Coronary Artery Disease (CAD), Cancer , COPD, Diabetes Mellitus, Eye Disorder, GERD/Reflux, Hyperlipidemia, Hypertension, Myocardial Infarction ([place]), Pneumonia, Sleep Apnea/CPAP/BIPAP Additional Past Medical History / Comment(s): Morbid obesity, chronic hypoxic respiratory failure, COPD, obstructive sleep apnea noncompliant to CPAP therapy , chronic atrial fibrillation and the patient has failed cardioversion in the past and she has been maintained on long-term anticoagulation she has also episodes of multifocal atrial tachycardia, previous coronary stenting regarding coronary artery disease, hypertension, hyperlipidemia, diabetes mellitus, macular degeneration, dysphagia, nicotine addiction/smoking the patient has been trying to quit smoking by utilization of Chantix, skin cancer involving the neck and the right cheek that was resected. 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 Last Myocardial Infarction Date:: 2009 History of Any Multi-Drug Resistant Organisms: MRSA Date of last positivie culture/infection: 11/21/16 MDRO Source:: Sputum Past Surgical History: Back Surgery, Bladder Surgery, Heart Catheterization With Stent, Hysterectomy Additional Past Surgical History / Comment(s): right hand carpal tunnel release , aug 2016 had a growth removed from her "vocal cords" Past Anesthesia/Blood Transfusion Reactions: No Reported Reaction Date of Last Stent Placement:: 2009 Past Psychological History: Anxiety, Depression Smoking Status: Former smoker Past Alcohol Use History: None Reported Past Drug Use History: None Reported - Past Family History Mother Family Medical History: Cancer Additional Family Medical History / Comment(s): lung Brother(s) Family Medical History: Cancer Additional Family Medical History / Comment(s): lung Father Family Medical History: Congestive Heart Failure (CHF) General Exam - General Exam Comments Initial Comments: General: The patient is awake and alert, in no distress, and does not appear acutely ill. Eye: Pupils are equal, round and reactive to light, extra-ocular movements are intact. No nystagmus. There is normal conjunctiva bilaterally. No signs of icterus. Ears, nose, mouth and throat: There are moist mucous membranes and no oral lesions. Neck: The neck is supple, there is no tenderness or JVD. Cardiovascular: There is a regular rate and rhythm. No murmur, rub or gallop is appreciated. Respiratory: Lungs are clear to auscultation, respirations are non-labored, breath sounds are equal. No wheezes, stridor, rales, or rhonchi. Gastrointestinal: Patient does have a PEG tube in place left side of the abdominal wall. There is some green bile-like drainage coming from the site area underneath. Mild local redness. No bleeding. Abdomen soft on palpation. Musculoskeletal: Normal ROM, no tenderness. Strength 5/5. Sensation intact. Pulses equal bilaterally 2+. Neurological: A&O x 3. CN II-XII intact, There are no obvious motor or sensory deficits. Coordination appears grossly intact. Speech is normal. Skin: Skin is warm and dry and no rashes or lesions are noted. Psychiatric: Cooperative, appropriate mood & affect, normal judgment. Limitations: no limitations Course Vital Signs 05/01/17 05/01/17 05/01/17 10:18 11:45 11:55 Temperature 97.9 F Pulse Rate 107 H 110 H 100 Respiratory 18 Rate Blood Pressure 146/69 O2 Sat by Pulse 97 Oximetry Medical Decision Making - Medical Decision Making Discussed with attending physician , who did discuss case with surgeon Dr. Carmela lemus with the patient. - Lab Data Result diagrams: 05/01/17 11:52 05/01/17 11:52 Lab Results 05/01/17 05/01/17 Range/Units 11:52 11:52 WBC 2.7 L (3.8-10.6) k/uL RBC 3.36 L (3.80-5.40) m/uL Hgb 10.2 L (11.4-16.0) gm/dL Hct 31.5 L (34.0-46.0) % MCV 93.7 (80.0-100.0) fL MCH 30.5 (25.0-35.0) pg MCHC 32.5 (31.0-37.0) g/dL RDW 20.1 H (11.5-15.5) % Plt Count 218 (150-450) k/uL Neutrophils % 65 % Lymphocytes % 21 % Monocytes % 11 % Eosinophils % 1 % Basophils % 1 % Neutrophils # 1.7 (1.3-7.7) k/uL Lymphocytes # 0.6 L (1.0-4.8) k/uL Monocytes # 0.3 (0-1.0) k/uL Eosinophils # 0.0 (0-0.7) k/uL Basophils # 0.0 (0-0.2) k/uL Anisocytosis Moderate Macrocytosis Slight Sodium 134 L (137-145) mmol/L Potassium 4.5 (3.5-5.1) mmol/L Chloride 101 (98-107) mmol/L Carbon Dioxide 25 (22-30) mmol/L Anion Gap 8 mmol/L BUN 21 H (7-17) mg/dL Creatinine 0.40 L (0.52-1.04) mg/dL Est GFR (MDRD) Af Amer >60 (>60 ml/min/1.73 sqM) Est GFR (MDRD) Non-Af >60 (>60 ml/min/1.73 sqM) Glucose 167 H (74-99) mg/dL Calcium 8.5 (8.4-10.2) mg/dL Total Bilirubin 0.4 (0.2-1.3) mg/dL AST 16 (14-36) U/L ALT 37 (9-52) U/L Alkaline Phosphatase 84 (38-126) U/L Total Protein 5.1 L (6.3-8.2) g/dL Albumin 2.8 L (3.5-5.0) g/dL Disposition Clinical Impression: Leaking PEG tube, Abdominal wall cellulitis Disposition: ADMITTED IP TO THIS HOSP Condition: Stable Referrals: Unruly Davies MD [Primary Care Provider] - 1-2 days Time of Disposition: 12:50
[2017-05-01 12:10] LABS: Anisocytosis Moderate; Basophils % (A) 1 %; CH 30.3; CHCM 32.5; Eosinophils % (A) 1 %; HCT 31.5 % (34.0-46.0); HDW 2.66; HGB 10.2 gm/dL (11.4-16.0); Luc # (Auto) 0.07; Luc % (Auto) 3; Lymphocytes # (A) 0.6 k/uL (1.0-4.8); Lymphocytes % (A) 21 %; MCH 30.5 pg (25.0-35.0); MCHC 32.5 g/dL (31.0-37.0); MCV 93.7 fL (80.0-100.0); Macrocytosis Slight; Mean Platelet Volume 8.5; Monocytes # (A) 0.3 k/uL (0-1.0); Monocytes % (A) 11 %; Neutrophils # (A) 1.7 k/uL (1.3-7.7); Neutrophils % (A) 65 %; RBC 3.36 m/uL (3.80-5.40); RDW 20.1 % (11.5-15.5); WBC 2.7 k/uL (3.8-10.6); WBC (Perox) 2.89
[2017-05-01 12:18] LABS: ALT 37 U/L (9-52); AST 16 U/L (14-36); Alkaline Phosphatase 84 U/L (38-126); Anion Gap 8 mmol/L; Blood Urea Nitrogen 21 mg/dL (7-17); Calcium 8.5 mg/dL (8.4-10.2); Carbon Dioxide 25 mmol/L (22-30); Chloride 101 mmol/L (98-107); Glucose 167 mg/dL (74-99); Non-African American GFR(MDRD) >60 (>60 ml/min/1.73 sqM); Potassium 4.5 mmol/L (3.5-5.1); Sodium 134 mmol/L (137-145); Total Bilirubin 0.4 mg/dL (0.2-1.3); Total Protein 5.1 g/dL (6.3-8.2)
[2017-05-01] MEDS ORDERED: NALOXONE 0.4 MG/ML 1 ML VIAL IV PRN (13:10)
[2017-05-01] MEDS ORDERED: ONDANSETRON 4 MG/2 ML VIAL IVP PRN (13:10)
[2017-05-01] MEDS: HYDROmorphone 1 MG/ML 1 ML SYRINGE IV PRN ×3 (15:08→20:14)
[2017-05-01] MEDS: DILTIAZEM ORAL 30 MG TAB PEG/G-TUBE SCH ×2 (15:09→21:03)
[2017-05-01] MEDS: CEPHALEXIN 250 MG CAP PO SCH ×2 (19:00→21:03)
[2017-05-01] MEDS: IPRATROPIUM-ALBUTEROL 3 ML NEB INHALATION SCH (20:04)
[2017-05-01] MEDS: ATORVASTATIN 20 MG TAB PEG/G-TUBE SCH (20:06)
[2017-05-01] MEDS: BUDESONIDE 0.5 MG/2 ML NEBU INHALATION SCH (20:06)
[2017-05-01] MEDS: ONDANSETRON ODT 8 MG TAB.RAPDIS PO SCH (20:06)
[2017-05-01] MEDS ORDERED: METOPROLOL TARTRATE 25 MG TAB PEG/G-TUBE SCH (21:00)
[2017-05-01] MEDS ORDERED: METOPROLOL TARTRATE 25 MG TAB PO STA (22:38)
--- NOTE | 2017-05-01 23:16 | HP ---
DATE OF ADMISSION: 05/01/2017 REASON FOR ADMISSION: Leaking near PEG tube site. HISTORY: Darleen is a 72-year-old female who was recently discharged from the hospital after PEG tube cellulitis. She had tolerated tube feedings well in the hospital with no drainage; however, after she was discharged home family had problems with continuous drainage, so they brought her back. Past medical history includes: 1. Some sort of throat cancer. 2. Atrial fibrillation. 3. Coronary artery disease. 4. COPD. 5. Diabetes. 6. GERD. 7. Hyperlipidemia. 8. Hypertension. 9. HI. 10. Pneumonia. 11. Obstructive sleep apnea. 12. Obesity. 13. Macular degeneration. PAST SURGICAL HISTORY: 1. Some orthopedic procedure on her back. 2. Bladder surgery. 3. Heart catheterization with stenting. 4. Hysterectomy. 5. Carpal tunnel release. 6. Biopsy of her throat. Medications on admission include: 1. Aspirin. 2. Lipitor. 3. Pulmicort. 4. Dexamethasone. 5. Diltiazem. 6. Lomotil. 7. Vitamin D. 8. Hyoscyamine. 9. DuoNeb. 10. Keflex. 11. Metoprolol. 12. Zofran. See med rec for dosages. ALLERGIES: 1. CIPRO. 2. TIKOSYN. 3. NAPROSYN. SOCIAL: She is a smoker; has been trying to quit. No alcohol use. FAMILY HISTORY: Non-contributory. REVIEW OF SYSTEMS: Per Chief Complaint. PHYSICAL EXAM: [id number]-old female. Afebrile. Pulse is in the low 100s. Respirations 16. Blood pressure is 122/67. HEART: Irregularly irregular. LUNGS: Clear to auscultation. ABDOMEN: She has some erythema and induration near the PEG tube site which is improved from earlier over the weekend. She has a loose bolster for her PEG tube which is allowing copious gastric drainage around the tube along with some chemical dermatitis from the bile and gastric drainage. LAB: Her white count is 2700, hemoglobin 10.2. Potassium is okay at 4.5. Sodium is 134. ASSESSMENT: 1. PEG tube malfunction with PEG tube site cellulitis. 2. Throat cancer. 3. Atrial fibrillation. 4. Chronic obstructive pulmonary disease. 5. Coronary artery disease. PLAN: Admit. IV antibiotics. Nursing was shown how to secure the bolster against the skin so we will not have gastric leakage. Will try to allow the area to heal of the chemical dermatitis, and likely the PEG tube site will need to be changed later this week. I discussed this with the patient and her niece along with the nurse. CLAUDIO
[2017-05-02] MEDS: IPRATROPIUM-ALBUTEROL 3 ML NEB INHALATION SCH ×8 (01:24→23:51)
[2017-05-02] MEDS: HYDROmorphone 1 MG/ML 1 ML SYRINGE IV PRN ×6 (04:59→22:57)
[2017-05-02 06:20] LABS: Anisocytosis Slight; Basophils % (A) 1 %; CH 30.3; CHCM 31.7; Eosinophils # (A) 0.1 k/uL (0-0.7); Eosinophils % (A) 2 %; HCT 32.1 % (34.0-46.0); HDW 2.66; Hypochromasia Slight; Luc % (Auto) 3; Lymphocytes # (A) 1.2 k/uL (1.0-4.8); Lymphocytes % (A) 36 %; MCHC 31.2 g/dL (31.0-37.0); MCV 96.1 fL (80.0-100.0); Macrocytosis Slight; Mean Platelet Volume 8.7; Monocytes # (A) 0.3 k/uL (0-1.0); Monocytes % (A) 9 %; Neutrophils # (A) 1.7 k/uL (1.3-7.7); Neutrophils % (A) 49 %; RBC 3.34 m/uL (3.80-5.40); WBC 3.4 k/uL (3.8-10.6)
[2017-05-02 06:34] LABS: ALT 39 U/L (9-52); AST 13 U/L (14-36); Alkaline Phosphatase 81 U/L (38-126); Anion Gap 7 mmol/L; Blood Urea Nitrogen 25 mg/dL (7-17); Calcium 8.5 mg/dL (8.4-10.2); Carbon Dioxide 27 mmol/L (22-30); Chloride 101 mmol/L (98-107); Glucose 141 mg/dL (74-99); Non-African American GFR(MDRD) >60 (>60 ml/min/1.73 sqM); Potassium 4.1 mmol/L (3.5-5.1); Sodium 135 mmol/L (137-145); Total Bilirubin 0.2 mg/dL (0.2-1.3); Total Protein 4.9 g/dL (6.3-8.2)
[2017-05-02] MEDS ORDERED: METOPROLOL TARTRATE 5 MG/5 ML VIAL IVP STA (06:41)
[2017-05-02] MEDS: BUDESONIDE 0.5 MG/2 ML NEBU INHALATION SCH ×2 (08:33→21:05)
[2017-05-02] MEDS ORDERED: RX INFO: IV CONTRAST WAS GIVEN 1 EACH MISC MISCELLANE PRN (09:22)
--- NOTE | 2017-05-02 09:41 | P.PN ---
Subjective 72-year-old female being seen for medical management at the request of the attending. Patient had an episode of atrial fibrillation with a rapid ventricular response this morning necessitating the patient be transferred from the oncology unit to the cardiac unit this morning. Currently the patient is sitting up on the edge of the bed talkative does not appear in any acute distress denies any heart palpitations monitor showing atrial fibrillation variable ventricular response rate between 110 and 140. Patient's initial presentation on May 01 was to be evaluated for leaking around the PEG tube site with cellulitis. Reviewing computerized records indicate the patient in November 2016 this year was seen by cardiology service. At that time patient was treated for atrial fibrillation with a rapid ventricular response. Patient does have a known history of coronary artery disease. Patient had prior coronary stenting done in [place] and [facility] a few years ago. Also underwent cardioversion for atrial fibrillation. This patient has a history of COPD. Cardiac eval done in November 2016 indicated due to to the patient severe bronchospastic status and lung disease beta kelly therapy may not be an option at that time there was recommendation at that time for anticoagulation Coumadin. Currently patient appears in no acute distress. The echocardiogram done November 22 2016 left ventricular systolic function low normal with an EF between 50 and 55% with no evidence of pulmonary hypertension. Mild left ventricular hypertrophy noted Note that the patient was discharged on April 30 at that time patient was treated for cellulitis around the PEG tube site. Does have a history of metastatic neoplasm involving the neck being followed by oncology service Objective - Vital Signs Vital signs: Vital Signs Temp 98.3 F 05/01/17 23:42 Pulse 88 05/02/17 08:50 Resp 16 05/01/17 23:42 BP 119/82 05/02/17 07:01 Pulse Ox 96 05/01/17 23:42 Intake & Output 05/01/17 05/02/17 05/02/17 18:59 06:59 18:59 Intake Total 320 Balance 320 Weight 72 kg 73 kg Intake: Tube Feeding 320 Other: Voiding Method Toilet Toilet - Exam GENERAL APPEARANCE: 72-year-old female patient is alert, oriented, in no acute distress sitting up on the edge of the bed. VITAL SIGNS: Reviewed HEENT: Head is normocephalic and atraumatic. Pupils are equal and reactive. The nares are patent. Oropharynx is clear without lesions. NECK: Supple without lymphadenopathy. Traches midline. HEART: S1, S2. Irregular monitor atrial fibrillation denying heart palpitations LUNGS: Posterior diminished at the bases no audible wheezing ABDOMEN: Soft, nontender, nondistended with good bowel sounds. No peritoneal signs. No palpable organomegaly or masses. PEG tube in site cellulitis to the abdominal wall no leaking noted around the PEG tube tube feeds in progress EXTREMITIES: Normal skin color and turgor. No cyanosis, rash, ulceration, clubbing or edema. Radial pedal pulses are 2/4 bilaterally. NEUROLOGICAL: No focal deficits. Strength and sensation are grossly intact. - Labs CBC & Chem 7: 05/02/17 06:02 05/02/17 06:02 Labs: Abnormal Lab Results - Last 24 Hours (Table) 05/01/17 05/01/17 05/02/17 Range/Units 11:52 11:52 06:02 WBC 2.7 L 3.4 L (3.8-10.6) k/uL RBC 3.36 L 3.34 L (3.80-5.40) m/uL Hgb 10.2 L 10.0 L (11.4-16.0) gm/dL Hct 31.5 L 32.1 L (34.0-46.0) % RDW 20.1 H 20.0 H (11.5-15.5) % Lymphocytes # 0.6 L (1.0-4.8) k/uL Sodium 134 L (137-145) mmol/L BUN 21 H (7-17) mg/dL Creatinine 0.40 L (0.52-1.04) mg/dL Glucose 167 H (74-99) mg/dL AST (14-36) U/L Total Protein 5.1 L (6.3-8.2) g/dL Albumin 2.8 L (3.5-5.0) g/dL 05/02/17 Range/Units 06:02 WBC (3.8-10.6) k/uL RBC (3.80-5.40) m/uL Hgb (11.4-16.0) gm/dL Hct (34.0-46.0) % RDW (11.5-15.5) % Lymphocytes # (1.0-4.8) k/uL Sodium 135 L (137-145) mmol/L BUN 25 H (7-17) mg/dL Creatinine 0.43 L (0.52-1.04) mg/dL Glucose 141 H (74-99) mg/dL AST 13 L (14-36) U/L Total Protein 4.9 L (6.3-8.2) g/dL Albumin 2.7 L (3.5-5.0) g/dL Assessment and Plan Plan: Impression Present on admission leaking PEG tube with abdominal wall cellulitis involving the PEG tube site History of neck cancer Episode of atrial fibrillation with a rapid ventricular response Echocardiogram 11/22/2016 left ventricular systolic function low normal with an EF between 50 and 55% with no evidence of pulmonary hypertension Anemia due to malignancy hemoglobin stable Known coronary artery disease Obstructive sleep apnea noncompliant with CPAP therapy Chronic persistent atrial fibrillation Active nicotine dependency Skin cancer involving the neck and the right cheek with resection with throat cancer on chemotherapy currently COPD with no evidence of an exacerbation Plan CT of the chest to rule out evidence of a pulmonary emboli Check cardiac enzymes 3 sets Check a free T4 and a TSH Check a lactic acid Check a chest x-ray Check blood cultures 2 Respiratory treatments as ordered Await cardiology input Anticoagulation to be addressed Further recommendations pending The above impression and plan of care have been discussed and directed by signing physician. Nancy Nobles nurse practitioner acting as scribe for signing physician.
[2017-05-02] MEDS: METOPROLOL TARTRATE 25 MG TAB PEG/G-TUBE SCH ×2 (10:01→20:34)
[2017-05-02] MEDS: CEPHALEXIN 250 MG CAP PO SCH ×4 (10:02→21:03)
[2017-05-02] MEDS: DILTIAZEM ORAL 30 MG TAB PEG/G-TUBE SCH (10:02)
[2017-05-02] MEDS: ONDANSETRON ODT 8 MG TAB.RAPDIS PO SCH ×2 (10:54→20:34)
[2017-05-02] MEDS: DILTIAZEM 125 MG in SODIUM CHLORIDE 0.9% 100 ML IV SCH ×2 (10:55→20:59)
--- NOTE | 2017-05-02 12:41 | P.CRDCN ---
History of Present Illness Consult date: 05/02/17 Requesting physician: Arlin Casey Consult reason: atrial fibrillation Chief complaint: PEG tube leakage and bleeding History of present illness: This is a pleasant 72-year-old female with history of chronic persistent atrial fibrillation, coronary artery disease with prior stent placement before it hospital, severe COPD endstage, throat cancer, who presented to the hospital because she noticed increased leakage and drainage from her PEG tube with significant blood present. He states that it has been leaking for quite some time, she was recently in the emergency room with similar complaints. Because of the leakage from the PEG tube, patient has not been getting her oral medications which include the Cardizem and Lopressor, as morning, heart rate went up into the 140s and patient was transferred to the telemetry unit for further evaluation. Patient was started on IV Cardizem drip at 10 mg per hour. Heart rate currently in the low 100s. White blood cell count 3.4, hemoglobin 10.0, platelet count 207. Potassium is 4.1, BUN 25, creatinine 0.4. Troponin 0.014. Let pressure 120/80. At the time of my examination, she denies any palpitations, no overt shortness of breath, she just feels extremely weak and tired. Past Medical History Past Medical History: Atrial Fibrillation, Coronary Artery Disease (CAD), Cancer , COPD, Diabetes Mellitus, Eye Disorder, GERD/Reflux, Hyperlipidemia, Hypertension, Memory Impairment, Myocardial Infarction (NH), Pneumonia, Sleep Apnea/CPAP/BIPAP Additional Past Medical History / Comment(s): Morbid obesity, chronic hypoxic respiratory failure, COPD, obstructive sleep apnea noncompliant to CPAP therapy , chronic atrial fibrillation and the patient has failed cardioversion in the past and she has been maintained on long-term anticoagulation she has also episodes of multifocal atrial tachycardia, previous coronary stenting regarding coronary artery disease, hypertension, hyperlipidemia, after losing wt was taken off medications for diabetes mellitus, macular degeneration, dysphagia, nicotine addiction/smoking the patient has been trying to quit smoking by utilization of Chantix, skin cancer involving the neck and the right cheek that was resected. 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,TAKES NOTHING ORALLY. HAS SHORT TERM MEMORY PROBLEMS Last Myocardial Infarction Date:: 2009 History of Any Multi-Drug Resistant Organisms: MRSA Date of last positivie culture/infection: 11/21/16 MDRO Source:: Sputum Past Surgical History: Back Surgery, Bladder Surgery, Heart Catheterization With Stent, Hysterectomy Additional Past Surgical History / Comment(s): right hand carpal tunnel release , aug 2016 had a growth removed from her "vocal cords" Past Anesthesia/Blood Transfusion Reactions: No Reported Reaction Date of Last Stent Placement:: 2009 Smoking Status: Former smoker - Past Family History Mother Family Medical History: Cancer Additional Family Medical History / Comment(s): lung Brother(s) Family Medical History: Cancer Additional Family Medical History / Comment(s): lung Father Family Medical History: Congestive Heart Failure (CHF) Medications and Allergies Home Medications Medication Instructions Recorded Confirmed Type Aspirin 325 mg PEG/G-TUBE DAILY 04/27/17 05/01/17 History Atorvastatin [Lipitor] 20 mg PEG/G-TUBE HS 04/27/17 05/01/17 History Budesonide [Pulmicort] 0.5 mg INHALATION RT-BID 04/27/17 05/01/17 History Dexamethasone [Hexadrol] 2 mg PEG/G-TUBE DAILY 04/27/17 05/01/17 History Diltiazem Oral [Cardizem Oral] 30 mg PEG/G-TUBE TID 04/27/17 05/01/17 History Diphenox-Atrop 2.5-0.025 mg 2 tab PEG/G-TUBE Q4H PRN 04/27/17 05/01/17 History [Lomotil] Ergocalciferol [Vitamin D2] 50,000 unit PEG/G-TUBE JOINER 04/27/17 05/01/17 History Hyoscyamine Sulfate [Hyoscyamine 0.125 mg SUBLINGUAL Q6H PRN 04/27/17 05/01/17 History Sulfate SL] Ipratropium-Albuterol Nebulize 3 ml INHALATION RT-Q4H 04/27/17 05/01/17 History [Duoneb 0.5 mg-3 mg/3 ml Soln] Cephalexin [Keflex] 250 mg PO QID 05/01/17 05/01/17 History Metoprolol Tartrate 25 mg PEG/G-TUBE BID 05/01/17 05/01/17 History Ondansetron Odt [Zofran Odt] 8 mg PO Q12HR 05/01/17 05/01/17 History Allergies Allergy/AdvReac Type Severity Reaction Status Date / Time ciprofloxacin [From Cipro] Allergy Rash/Hives Verified 05/01/17 10:40 dofetilide [From Tikosyn] Allergy Rash/Hives Verified 05/01/17 10:40 kiwi Allergy Rash/Hives Verified 05/01/17 10:40 naproxen [From Naprosyn] Allergy Itching Verified 05/01/17 10:40 Physical Exam Vitals: Vital Signs Temp Pulse Pulse Resp BP BP Pulse Ox 05/02/17 08:50 88 05/02/17 08:36 84 05/02/17 07:01 123 H 119/82 05/02/17 06:56 91 125/73 05/02/17 06:53 122 H 125/90 05/02/17 01:37 92 05/02/17 01:25 96 05/01/17 23:42 98.3 F 146 H 16 124/93 96 05/01/17 23:14 126 H 05/01/17 20:12 92 16 05/01/17 20:04 92 14 05/01/17 16:00 137 H 16 05/01/17 15:00 137 H 135/80 97 05/01/17 14:52 121 H 16 05/01/17 13:20 98.8 F 89 19 122/67 05/01/17 11:55 100 05/01/17 11:45 110 H Intake and Output 05/01/17 05/02/17 05/02/17 22:59 06:59 14:59 Intake Total 320 Balance 320 Intake: Tube Feeding 320 Other: Voiding Method Toilet Toilet Weight 72 kg 73 kg 73 kg Patient Weight 05/03/17 06:59 Weight 73 kg PHYSICAL EXAMINATION: HEENT: Head is atraumatic, normocephalic. Pupils equal, round. Neck is supple. There is no elevated jugular venous pressure. HEART EXAMINATION: Heart S1 and S2 irregularly irregular CHEST EXAMINATION: Lungs reveal scattered coarse wheezes and rhonchi throughout. ABDOMEN: Soft, nontender. Bowel sounds are heard. No organomegaly noted. PEG tube in place, mild leakage. EXTREMITIES: 1+ peripheral pulses with no evidence of peripheral edema and no calf tenderness noted. NEUROLOGIC patient is awake, alert and oriented -3. . Results 05/02/17 06:02 05/02/17 06:02 Cardiac Enzymes 05/01/17 05/02/17 05/02/17 Range/Units 11:52 06:02 09:47 AST 16 13 L (14-36) U/L Troponin I 0.014 (0.000-0.034) ng/mL CBC 05/01/17 05/02/17 Range/Units 11:52 06:02 WBC 2.7 L 3.4 L (3.8-10.6) k/uL RBC 3.36 L 3.34 L (3.80-5.40) m/uL Hgb 10.2 L 10.0 L (11.4-16.0) gm/dL Hct 31.5 L 32.1 L (34.0-46.0) % Plt Count 218 207 (150-450) k/uL Comprehensive Metabolic Panel 05/01/17 05/02/17 Range/Units 11:52 06:02 Sodium 134 L 135 L (137-145) mmol/L Potassium 4.5 4.1 (3.5-5.1) mmol/L Chloride 101 101 (98-107) mmol/L Carbon Dioxide 25 27 (22-30) mmol/L BUN 21 H 25 H (7-17) mg/dL Creatinine 0.40 L 0.43 L (0.52-1.04) mg/dL Glucose 167 H 141 H (74-99) mg/dL Calcium 8.5 8.5 (8.4-10.2) mg/dL AST 16 13 L (14-36) U/L ALT 37 39 (9-52) U/L Alkaline Phosphatase 84 81 (38-126) U/L Total Protein 5.1 L 4.9 L (6.3-8.2) g/dL Albumin 2.8 L 2.7 L (3.5-5.0) g/dL Current Medications Generic Name Dose Route Start Last Admin Trade Name Freq PRN Reason Stop Dose Admin Albuterol/Ipratropium 3 ml 05/01/17 16:00 05/02/17 08:34 Duoneb 0.5 Mg-3 Mg/3 Ml Soln INHALATION 3 ml RT-Q4H JULIÁN Administration Atorvastatin Calcium 20 mg 05/01/17 21:00 05/01/17 20:06 Lipitor PEG/G-TUBE 20 mg HS JULIÁN Administration Budesonide 0.5 mg 05/01/17 20:00 05/02/17 08:33 Pulmicort INHALATION 0.5 mg RT-BID JULIÁN Administration Cephalexin 250 mg 05/01/17 18:00 05/02/17 10:02 Keflex PO 05/10/17 13:01 250 mg QID JULIÁN Administration Famotidine 20 mg 05/02/17 21:00 Pepcid PO BID JULIÁN Hydromorphone HCl 1 mg 05/01/17 13:10 05/02/17 09:57 Dilaudid IV 1 mg Q3HR PRN Administration Severe Pain Diltiazem HCl 125 mg/ Sodium 125 mls @ 10 mls/hr 05/02/17 10:15 05/02/17 10: 55 Chloride IV 10 mg/hr .[id number] JULIÁN 10 mls/hr 10 MG/HR Administration Metoprolol Tartrate 50 mg 05/02/17 09:00 05/02/17 10:01 Lopressor PEG/G-TUBE 50 mg BID JULIÁN Administration Miscellaneous Information 1 each 05/02/17 09:22 Rx Info: Iv Contrast Was Given MISCELLANE 05/04/17 09:23 DAILY PRN Per Protocol Naloxone HCl 0.2 mg 05/01/17 13:10 Narcan IV Q2M PRN Opioid Reversal Ondansetron HCl 4 mg 05/01/17 13:10 05/02/17 10:55 Zofran IVP 4 mg Q8HR PRN Administration Nausea And Vomiting Ondansetron HCl 8 mg 05/01/17 21:00 05/02/17 10:54 Zofran Odt PO Not Given Q12HR JULIÁN Intake and Output 05/01/17 05/02/17 05/02/17 22:59 06:59 14:59 Intake Total 320 Balance 320 Intake: Tube Feeding 320 Other: Voiding Method Toilet Toilet Weight 72 kg 73 kg 73 kg Patient Weight 05/03/17 06:59 Weight 73 kg 05/02/17 06:02 05/02/17 06:02 EKG Interpretations (text) No EKG performed. Assessment and Plan Plan: Assessment and plan #1 PEG tube leakage and bleeding. #2 chronic persistent atrial fibrillation, rapid ventricular response this morning. #3 known history of coronary artery disease with prior stent placement at [facility]. #4 hypertension 5 hyperlipidemia #6 end-stage COPD #7 throat cancer Plan We will obtain an echocardiogram with Doppler study. We will also obtain a chest x-ray and EKG. Resume the patient's home medications. Once she has received her home dose of Cardizem and beta kelly, we'll discontinue the IV Cardizem drip. We will also request a free T4 and TSH level. Further recommendations to follow. DNP note has been reviewed, I agree with a documented findings and plan of care. Patient was seen and examined.
--- NOTE | 2017-05-02 14:29 | PN ---
DATE OF SERVICE: CHIEF COMPLAINT: 1. Cellulitis around PEG tube. 2. Tachycardia. HISTORY OF PRESENT ILLNESS: During the night this lady developed tachycardia with a ventricular response rate, atrial fibrillation of around 150 beats per minute. She has had no chest pain and she had no particular shortness of breath. She has had no fever. PHYSICAL EXAM: CHEST: Clear. CARDIAC: Demonstrates atrial fibrillation with a rapid ventricular response. She remains pale. ABDOMEN: Soft, nontender. IMPRESSION: 1. Atrial fibrillation with rapid ventricular response. 2. Neoplasm of the neck. PLAN: 1. Cardiology consult. 2. Serial EKGs and enzymes. 3. D-dimer. 4. Lactic acid. 5. Two blood cultures. 6. BNP. MTDD
--- NOTE | 2017-05-02 15:16 | XR ---
EXAMINATION TYPE: XR chest 2V DATE OF EXAM: 05/02/2017 COMPARISON: Prior chest x-ray 11/27/2016 HISTORY: Shortness of breath TECHNIQUE: Frontal and lateral views of the chest are obtained. FINDINGS: Prominent lung volumes suggest underlying COPD. Right-sided Port-A-Cath is present, distal tip near the cavoatrial junction. There is no pneumothorax. Retrocardiac density is present, there i s obscured left hemidiaphragm. The heart remains enlarged and there are coronary artery calcification s. IMPRESSION: There may be left lower lobe atelectasis versus pneumonia, associated effusion. Follow-u p recommended.
[2017-05-02] MEDS ORDERED: MAGNESIUM SULFATE-D5W PMX 1 GM in DEXTROSE/WATER 1 100ML.BAG IVPB ONE (15:30)
--- NOTE | 2017-05-02 16:42 | CT ---
EXAMINATION TYPE: CT angio chest DATE OF EXAM: 05/02/2017 COMPARISON: 06/29/[address] 03/17/2017 HISTORY: 72-year-old female Shortness of breath and cough, rule out pulmonary embolus TECHNIQUE: Contiguous axial scanning of the chest performed with IV Contrast, patient injected with 1 00 mL of Omnipaque 350. Coronal/sagittal MIP reconstructions performed. CT DLP: 583 mGycm Automated exposure control for dose reduction was used. FINDINGS: The heart is mildly enlarged without pericardial effusion. Coronary vessel calcifications are a marke r for coronary artery disease. Ascending aorta is ectatic at 3.7 cm conventional arch vessel branching anatomy and mild atherosclero tic calcifications. Borderline ectasia upper descending thoracic aorta at 3.0 cm. Ectasia of the low er descending thoracic aorta at 2.6 cm. Large caliber to the main right and left pulmonary arteries at 3.0 and 2.5 cm, respectively, suggesti ng underlying pulmonary arterial hypertension. There is satisfactory opacification of the pulmonary a rterial system with some respiratory motion at the lung bases but no convincing evidence for pulmonar y embolus. Right anterior chest wall injection port with catheter tip in the uppermost right atrium. Within the visualized lower right neck, there is a partially visualized 2.7 cm suspected centrally ne crotic cervical lymph node, axial image 1 There is some differential density within the lumen of the internal jugular vein that could be second linnea to beam hardening artifact. Consider upper extremity ultrasound to exclude clot in the internal j ugular vein, axial image 2. No thoracic lymphadenopathy seen. There is moderate centrilobular emphysema with a small left pleural effusion and multi segmental atel ectasis in the left lower lobe. Some patchy opacity in the inferior lingula is also noted. Additional focal opacity medial right middle lobe suspected to represent atelectasis. Prominent reflux of contrast into the hepatic veins. Stable mild diffuse thickening of the left adren al gland without discrete nodularity. A PEG tube is in place. We note prominent air along the subcuta neous tract of the PEG tube catheter of questionable clinical significance. Bones: Endplate spondylosis mid to lower thoracic spine. No osseous destructive process. IMPRESSION: 1. SOME RESPIRATORY MOTION. WITHIN THIS LIMITATION, NO EVIDENCE FOR PULMONARY EMBOLUS. 2. CARDIOMEGALY, PULMONARY ARTERIAL HYPERTENSION, SMALL LEFT PLEURAL EFFUSION, AND MILD SEPTAL LINES . CORRELATE FOR CHF AND PULMONARY VASCULAR CONGESTION SUPERIMPOSED ON COPD. 3. LEFT BASILAR OPACITIES MOST OF WHICH REPRESENT ATELECTASIS. CORRELATE TO EXCLUDE EARLY INFILTRATE AT THE INFERIOR LINGULAR. 4. PARTIALLY VISUALIZED 2.7 CM LESION, SUSPECTED NECROTIC CERVICAL LYMPH NODE ON THE RIGHT. 5. SOME DIFFERENTIAL DENSITY WITHIN THE RIGHT INTERNAL JUGULAR VEIN COULD BE DUE TO ARTIFACT. IF THER E IS CONCERN FOR CLOT IN THE INTERNAL JUGULAR VEIN, A RIGHT UPPER EXTREMITY ULTRASOUND CAN BE PERFORM ED.
--- NOTE | 2017-05-02 18:25 | P.CONS ---
History of Present Illness - Reason for Consult Consult date: 05/02/17 oropharyngeal squamous cell malignancy Requesting physician: Arlin Casey - Chief Complaint PEG tube leaking - History of Present Illness Ms. Jorgensen is a very pleasant female pt of Dr. 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 She presented with oropharyngeal mass and was seen by Dr. Chase and Dr. Cisneros , ultimately referred to Dr. Hess at [facility]. CT on 01/10/17 revealed 7.4 cm oropharyngeal mass, biopsy on 01/22/17 revealed moderately differentiated squamous cell carcinoma, P16 negative, she had PEG tube placed for nutritional support. Pt was started on neoadjuvant chemotherapy at [facility] under the direction of Dr. Comer. She started carbo and weekly taxol, after 1st cycle day 1, 8, 15 she opted for treatment closer to home, she is due for her cycle 2 day 15 tomorrow. Pt is having problems with drainage arond PEG and was discharged with the tube working very well just a day or so ago. The skin in the area is red, scabbed and the site is slightly tender. Pt now is having episodes of cardiac irregularity, she denies dizziness, SOB, chest pain or palpitations. Review of Systems All systems: negative Constitutional: Reports as per HPI Past Medical History Past Medical History: Atrial Fibrillation, Coronary Artery Disease (CAD), Cancer , COPD, Diabetes Mellitus, Eye Disorder, GERD/Reflux, Hyperlipidemia, Hypertension, Memory Impairment, Myocardial Infarction ([place]), Pneumonia, Sleep Apnea/CPAP/BIPAP Additional Past Medical History / Comment(s): Morbid obesity, chronic hypoxic respiratory failure, COPD, obstructive sleep apnea noncompliant to CPAP therapy , chronic atrial fibrillation and the patient has failed cardioversion in the past and she has been maintained on long-term anticoagulation she has also episodes of multifocal atrial tachycardia, previous coronary stenting regarding coronary artery disease, hypertension, hyperlipidemia, after losing wt was taken off medications for diabetes mellitus, macular degeneration, dysphagia, nicotine addiction/smoking the patient has been trying to quit smoking by utilization of Chantix, skin cancer involving the neck and the right cheek that was resected. 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,TAKES NOTHING ORALLY. HAS SHORT TERM MEMORY PROBLEMS Last Myocardial Infarction Date:: 2009 History of Any Multi-Drug Resistant Organisms: MRSA Year Discovered:: 11/21/16 MDRO Source:: Sputum Past Surgical History: Back Surgery, Bladder Surgery, Heart Catheterization With Stent, Hysterectomy Additional Past Surgical History / Comment(s): right hand carpal tunnel release , aug 2016 had a growth removed from her "vocal cords" Past Anesthesia/Blood Transfusion Reactions: No Reported Reaction Date of Last Stent Placement:: 2009 Smoking Status: Former smoker - Past Family History Mother Family Medical History: Cancer Additional Family Medical History / Comment(s): lung Brother(s) Family Medical History: Cancer Additional Family Medical History / Comment(s): lung Father Family Medical History: Congestive Heart Failure (CHF) Medications and Allergies Home Medications Medication Instructions Recorded Confirmed Type Aspirin 325 mg PEG/G-TUBE DAILY 04/27/17 05/01/17 History Atorvastatin [Lipitor] 20 mg PEG/G-TUBE HS 04/27/17 05/01/17 History Budesonide [Pulmicort] 0.5 mg INHALATION RT-BID 04/27/17 05/01/17 History Dexamethasone [Hexadrol] 2 mg PEG/G-TUBE DAILY 04/27/17 05/01/17 History Diltiazem Oral [Cardizem Oral] 30 mg PEG/G-TUBE TID 04/27/17 05/01/17 History Diphenox-Atrop 2.5-0.025 mg 2 tab PEG/G-TUBE Q4H PRN 04/27/17 05/01/17 History [Lomotil] Ergocalciferol [Vitamin D2] 50,000 unit PEG/G-TUBE JOINER 04/27/17 05/01/17 History Hyoscyamine Sulfate [Hyoscyamine 0.125 mg SUBLINGUAL Q6H PRN 04/27/17 05/01/17 History Sulfate SL] Ipratropium-Albuterol Nebulize 3 ml INHALATION RT-Q4H 04/27/17 05/01/17 History [Duoneb 0.5 mg-3 mg/3 ml Soln] Cephalexin [Keflex] 250 mg PO QID 05/01/17 05/01/17 History Metoprolol Tartrate 25 mg PEG/G-TUBE BID 05/01/17 05/01/17 History Ondansetron Odt [Zofran Odt] 8 mg PO Q12HR 05/01/17 05/01/17 History Allergies Allergy/AdvReac Type Severity Reaction Status Date / Time ciprofloxacin [From Cipro] Allergy Rash/Hives Verified 05/01/17 10:40 dofetilide [From Tikosyn] Allergy Rash/Hives Verified 05/01/17 10:40 kiwi Allergy Rash/Hives Verified 05/01/17 10:40 naproxen [From Naprosyn] Allergy Itching Verified 05/01/17 10:40 Physical Exam Vitals: Vital Signs Temp Pulse Pulse Resp BP Pulse Ox 05/02/17 16:57 91 05/02/17 16:46 91 05/02/17 16:00 50 L 14 106/71 100 05/02/17 11:44 85 05/02/17 11:36 85 05/02/17 08:50 88 05/02/17 08:36 84 05/02/17 08:00 132 H 16 05/02/17 07:01 123 H 119/82 05/02/17 06:56 91 125/73 05/02/17 06:53 122 H 125/90 05/02/17 01:37 92 05/02/17 01:25 96 05/01/17 23:42 98.3 F 146 H 16 124/93 96 05/01/17 23:14 126 H 05/01/17 20:12 92 16 05/01/17 20:04 92 14 Intake and Output 05/02/17 05/02/17 05/02/17 06:59 14:59 22:59 Intake Total 320 405 Balance 320 405 Intake: Intake, IV Titration 245 Amount Diltiazem 125 mg In 20 Sodium Chloride 0.9% 100 ml @ 10 MG/HR 10 mls/hr IV .[id number] [facility] Rx#: [id number] Sodium Chloride 0.9% 1, 225 000 ml @ 75 mls/hr IV . [id number] [facility] Rx#:[id number] Oral 0 Tube Feeding 320 160 Other: Voiding Method Toilet Toilet Toilet Weight 73 kg 73 kg Patient Weight 05/03/17 06:59 Weight 73 kg - Constitutional General appearance: average body habitus, cooperative, no acute distress - EENT Eyes: anicteric sclerae, PERRLA - Neck right neck: supraclavicular LN 2cm, round, firm, fixed-actually smaller and softer then previously examined. Right anterior cervical mass, 1 cm. Neck: lymphadenopathy - Respiratory Respiratory: left: CTA - Cardiovascular Rhythm: irregularly irregular Abnormal Heart Sounds: S3 Gallop leg Peripheral Edema: bilateral: None - Gastrointestinal General gastrointestinal: no absent bowel sounds, no decreased bowel sounds, no distended, no hepatomegaly, no hyperactive bowel sounds, normal bowel sounds, no organomegaly, no rigid, no scaphoid, soft, no splenomegaly, no tenderness, no umbilical hernia, no ventral hernia - Integumentary Integumentary: pale - Neurologic Neurologic: CNII-XII intact - Musculoskeletal Musculoskeletal: generalized weakness, strength equal bilaterally - Psychiatric Psychiatric: A&O x's 3, appropriate affect, intact judgment & insight Results CBC & Chem 7: 05/02/17 06:02 05/02/17 06:02 Labs: Abnormal Lab Results - Last 24 Hours (Table) 05/02/17 05/02/17 Range/Units 06:02 06:02 WBC 3.4 L (3.8-10.6) k/uL RBC 3.34 L (3.80-5.40) m/uL Hgb 10.0 L (11.4-16.0) gm/dL Hct 32.1 L (34.0-46.0) % RDW 20.0 H (11.5-15.5) % Sodium 135 L (137-145) mmol/L BUN 25 H (7-17) mg/dL Creatinine 0.43 L (0.52-1.04) mg/dL Glucose 141 H (74-99) mg/dL AST 13 L (14-36) U/L Total Protein 4.9 L (6.3-8.2) g/dL Albumin 2.7 L (3.5-5.0) g/dL Chest x-ray: report reviewed CT scan - chest: report reviewed Assessment and Plan (1) Squamous cell carcinoma of head and neck Narrative/Plan: Pt malignancy is subjectively improved as the size of the right neck/ supraclavicular lymph nodes are smaller and softer, she has been tolerating treatment well. Chemo will be delayed until Surgery and Cardiology have cleared pt. Status: Chronic (2) Bicytopenia Narrative/Plan: Secondary to chemotherapy. Mild anemia and leukopenia without neutropenia, no intervention at this time Status: Acute
[2017-05-02] MEDS: ATORVASTATIN 20 MG TAB PEG/G-TUBE SCH (20:29)
[2017-05-02] MEDS: FAMOTIDINE 20 MG TAB PO SCH (20:34)
--- NOTE | 2017-05-02 21:14 | P.PN ---
Subjective Principal diagnosis: Malfunctioning PEG tube Patient throughout the day has had intermittent episodes of drainage from around the PEG tube. She is complaining of discomfort in that area. No fevers. Tube feeds have been held. Objective - Vital Signs Vital signs: Vital Signs Temp 97.2 F L 05/02/17 20:00 Pulse 91 05/02/17 21:08 Resp 18 05/02/17 20:00 BP 131/88 05/02/17 20:00 Pulse Ox 92 L 05/02/17 20:00 Intake & Output 05/02/17 05/02/17 05/03/17 06:59 18:59 06:59 Intake Total 320 405 100.667 Balance 320 405 100.667 Weight 73 kg 73 kg Intake: Intake, IV Titration 245 100.667 Amount Diltiazem 125 mg In 20 100.667 Sodium Chloride 0.9% 100 ml @ 10 MG/HR 10 mls/hr IV .[id number] [facility] Rx#: [id number] Sodium Chloride 0.9% 1, 225 000 ml @ 75 mls/hr IV . [id number] [facility] Rx#:[id number] Oral 0 Tube Feeding 320 160 Other: Voiding Method Toilet Toilet - Exam Abdomen: Soft, nondistended, macerated skin inferior and lateral to the PEG tube site, wound present at the PEG tube site measuring approximately 2 x 1.5 cm with a depth approximately 2 cm bolster present at approximately 4-4.5 cm - Labs CBC & Chem 7: 05/02/17 06:02 05/02/17 06:02 Labs: Abnormal Lab Results - Last 24 Hours (Table) 05/02/17 05/02/17 Range/Units 06:02 06:02 WBC 3.4 L (3.8-10.6) k/uL RBC 3.34 L (3.80-5.40) m/uL Hgb 10.0 L (11.4-16.0) gm/dL Hct 32.1 L (34.0-46.0) % RDW 20.0 H (11.5-15.5) % Sodium 135 L (137-145) mmol/L BUN 25 H (7-17) mg/dL Creatinine 0.43 L (0.52-1.04) mg/dL Glucose 141 H (74-99) mg/dL AST 13 L (14-36) U/L Total Protein 4.9 L (6.3-8.2) g/dL Albumin 2.7 L (3.5-5.0) g/dL Assessment and Plan (1) PEG tube malfunction Narrative/Plan: Clinical scenario was discussed in detail with the patient and her family at the bedside. Options of G tube removal with replacement were reviewed. We decided to change the 20-Nauruan catheter to a 22-Nauruan catheter to see if that may assist with the larger balloon size and preventing further drainage. Without difficulty the prior balloon gastrostomy tube was removed. The patient only had 5 mL of fluid within the balloon. The new 22-Nauruan NESSA replacement tube was easily advanced through the abdominal wall. This balloon was inflated with 20 mL of water. The catheter was irrigated and we had very little bilious effluent. The patient did have bilious fluid unfortunately still draining intermittently around the PEG tube despite the bolster being tightened down to 4 cm. Status: Acute
--- NOTE | 2017-05-02 21:51 | XR ---
EXAMINATION TYPE: XR abdomen 1V DATE OF EXAM: 05/02/2017 COMPARISON: NONE HISTORY: Check feeding tube placement TECHNIQUE: Single view FINDINGS: There was 60 mL of Omnipaque injected into the gastrostomy tube. The contrast appears to fi ll the body of the stomach. There is contrast extending into the first and second part of the duodenu m. There is no evidence of extravasation. IMPRESSION: Gastrostomy tube appears to be in good position in the body of the stomach. There is noted contrast in the urinary bladder and right kidney from the contrast CT scan today.
[2017-05-02] MEDS: PANTOPRAZOLE 40 MG/10 ML VIAL IVP SCH (22:56)
[2017-05-03] MEDS: IPRATROPIUM-ALBUTEROL 3 ML NEB INHALATION SCH ×6 (03:36→20:01)
[2017-05-03] MEDS: HYDROmorphone 1 MG/ML 1 ML SYRINGE IV PRN ×6 (03:58→21:26)
[2017-05-03 04:38] LABS: Anisocytosis Slight; Basophils % (A) 1 %; CH 29.7; CHCM 31.7; Eosinophils # (A) 0.2 k/uL (0-0.7); Eosinophils % (A) 4 %; HCT 29.6 % (34.0-46.0); HDW 2.75; HGB 9.4 gm/dL (11.4-16.0); Hypochromasia Slight; Luc # (Auto) 0.14; Luc % (Auto) 3; Lymphocytes # (A) 1.2 k/uL (1.0-4.8); Lymphocytes % (A) 24 %; MCHC 31.9 g/dL (31.0-37.0); Macrocytosis Slight; Monocytes # (A) 0.4 k/uL (0-1.0); Monocytes % (A) 9 %; Neutrophils % (A) 60 %; RBC 3.15 m/uL (3.80-5.40); RDW 19.2 % (11.5-15.5); WBC (Perox) 5.03
[2017-05-03 04:42] LABS: ALT 34 U/L (9-52); AST 15 U/L (14-36); Alkaline Phosphatase 78 U/L (38-126); Anion Gap 7 mmol/L; Blood Urea Nitrogen 21 mg/dL (7-17); Calcium 8.4 mg/dL (8.4-10.2); Carbon Dioxide 28 mmol/L (22-30); Chloride 102 mmol/L (98-107); Glucose 89 mg/dL (74-99); Magnesium 1.7 mg/dL (1.6-2.3); Non-African American GFR(MDRD) >60 (>60 ml/min/1.73 sqM); Potassium 3.6 mmol/L (3.5-5.1); Sodium 137 mmol/L (137-145); Total Bilirubin 0.4 mg/dL (0.2-1.3); Total Protein 4.7 g/dL (6.3-8.2)
[2017-05-03] MEDS: CEPHALEXIN 250 MG CAP PO SCH ×4 (08:03→21:47)
[2017-05-03] MEDS: ONDANSETRON ODT 8 MG TAB.RAPDIS PO SCH (08:03)
[2017-05-03] MEDS: METOPROLOL TARTRATE 25 MG TAB PEG/G-TUBE SCH ×2 (08:03→21:47)
[2017-05-03] MEDS: FAMOTIDINE 20 MG TAB PO SCH ×2 (08:03→21:46)
[2017-05-03] MEDS: PANTOPRAZOLE 40 MG/10 ML VIAL IVP SCH (08:12)
[2017-05-03] MEDS: BUDESONIDE 0.5 MG/2 ML NEBU INHALATION SCH ×2 (08:32→20:01)
[2017-05-03] MEDS: DILTIAZEM 125 MG in SODIUM CHLORIDE 0.9% 100 ML IV SCH ×3 (09:22→18:03)
[2017-05-03] MEDS ORDERED: DILTIAZEM ORAL 60 MG TAB PO SCH (10:15)
--- NOTE | 2017-05-03 11:24 | ECHOF ---
Referral Reason:afib MEASUREMENTS -------- HEIGHT: 152.4 cm WEIGHT: 72.6 kg BP: RVIDd: 2.7 cm (< 3.3) IVSd: 1.1 cm (0.6 - 1.1) LVIDd: 4.8 cm (3.9 - 5.3) LVPWd: 1.3 cm (0.6 - 1.1) LAESV Index (A-L): 46.95 ml/m Ao Diam: 2.5 cm (2.0 - 3.7) AV Cusp: 1.3 cm (1.5 - 2.6) LA Diam: 4.2 cm (2.7 - 3.8) MV EXCURSION: 13.275 mm (> 18.000) MV EF SLOPE: 57 mm/s (70 - 150) EPSS: 1.3 cm AR PHT: 376 ms RAP: 5.00 mmHg RVSP: 41.21 mmHg FINDINGS -------- Undetermined rhythm. This was a technically adequate study. There is mild concentric left ventricular hypertrophy. There is mild global hypokinesis of LV . Overall left ventricular systolic function is mildly impaired with, an EF between 45 - 50 %. The right ventricle is normal in size. LA is severely dilated >40 ml/m2 The right atrial size is normal. There is moderate aortic regurgitation. Mild mitral annular calcification present. Oicw-gz-rhovsfeb mitral regurgitation is present. Moderate tricuspid regurgitation present. There is mild to moderate pulmonary hypertension. The right ventricular systolic pressure, as measured by Doppler, is 41.21mmHg. There is no pulmonic regurgitation present. The aortic root size is normal. There is no pericardial effusion. CONCLUSIONS -------- 1. There is mild concentric left ventricular hypertrophy. 2. There is mild global hypokinesis of LV . 3. LA is severely dilated >40 ml/m2 4. There is moderate aortic regurgitation. 5. Mild mitral annular calcification present. 6. Lvum-oh-whfwiwqh mitral regurgitation is present. 7. Moderate tricuspid regurgitation present. 8. There is mild to moderate pulmonary hypertension. 9. The right ventricular systolic pressure, as measured by Doppler, is 41.21mmHg. MANAGER UTILIZATION MANAGEMENT: Lilliana Palmer RDCS
--- NOTE | 2017-05-03 13:10 | P.PN ---
Subjective This is a pleasant 72-year-old female with history of chronic persistent atrial fibrillation, coronary artery disease with prior stent placement before it hospital, severe COPD endstage, throat cancer, who presented to the hospital because she noticed increased leakage and drainage from her PEG tube with significant blood present. He states that it has been leaking for quite some time, she was recently in the emergency room with similar complaints. Because of the leakage from the PEG tube, patient has not been getting her oral medications which include the Cardizem and Lopressor, as morning, heart rate went up into the 140s and patient was transferred to the telemetry unit for further evaluation. Patient was started on IV Cardizem drip at 10 mg per hour. Heart rate currently in the low 100s. White blood cell count 3.4, hemoglobin 10.0, platelet count 207. Potassium is 4.1, BUN 25, creatinine 0.4. Troponin 0.014. Let pressure 120/80. At the time of my examination, she denies any palpitations, no overt shortness of breath, she just feels extremely weak and tired. 05/03/2017 Patient did have a new PEG tube placed by Dr. merrill, this continues to be leaking significantly and therefore patient is not taking any oral medications through their at this time. We will continue the IV Cardizem drip which is keeping the patient's heart rate under adequate control, once she is able to take by mouth medications we will resume the Cardizem along with the beta kelly. Echocardiogram with Doppler study was performed which revealed an ejection fraction of 45-50% with severely dilated left atrium. Objective - Vital Signs Vital signs: Vital Signs Temp 96.8 F L 05/03/17 08:12 Pulse 84 05/03/17 12:24 Resp 18 05/03/17 08:12 BP 106/56 05/03/17 08:12 Pulse Ox 93 L 05/03/17 08:12 Intake & Output 05/02/17 05/03/17 05/03/17 18:59 06:59 18:59 Intake Total 405 200.667 123.833 Output Total 825 Balance 405 -624.333 123.833 Weight 73 kg 73.8 kg Intake: Intake, IV Titration 245 200.667 123.833 Amount Diltiazem 125 mg In 20 100.667 123.833 Sodium Chloride 0.9% 100 ml @ 10 MG/HR 10 mls/hr IV .[id number] [facility] Rx#: [id number] Magnesium Sulfate-D5w Pmx 100 1 gm In Dextrose/Water 1 100ml.bag @ 100 mls/hr IVPB ONCE ONE Rx#: [id number] Sodium Chloride 0.9% 1, 225 000 ml @ 75 mls/hr IV . [id number] [facility] Rx#:[id number] Oral 0 Tube Feeding 160 Output: Drainage 325 Abdomen 325 Urine 500 Other: Voiding Method Toilet Toilet Toilet # Voids 1 - Exam PHYSICAL EXAMINATION: HEENT: Head is atraumatic, normocephalic. Pupils equal, round. Neck is supple. There is no elevated jugular venous pressure. HEART EXAMINATION: Heart S1 and S2 irregularly irregular CHEST EXAMINATION: Lungs reveal scattered coarse wheezes and rhonchi throughout. ABDOMEN: Soft, nontender. Bowel sounds are heard. No organomegaly noted. PEG tube in place, mild leakage. EXTREMITIES: 1+ peripheral pulses with no evidence of peripheral edema and no calf tenderness noted. NEUROLOGIC patient is awake, alert and oriented -3. - Labs CBC & Chem 7: 05/03/17 04:15 05/03/17 04:15 Labs: Abnormal Lab Results - Last 24 Hours (Table) 05/03/17 05/03/17 Range/Units 04:15 04:15 RBC 3.15 L (3.80-5.40) m/uL Hgb 9.4 L (11.4-16.0) gm/dL Hct 29.6 L (34.0-46.0) % RDW 19.2 H (11.5-15.5) % BUN 21 H (7-17) mg/dL Creatinine 0.43 L (0.52-1.04) mg/dL Total Protein 4.7 L (6.3-8.2) g/dL Albumin 2.6 L (3.5-5.0) g/dL Microbiology - Last 24 Hours (Table) 05/02/17 09:47 Blood Culture - Preliminary Blood No Growth after 24 hours Assessment and Plan Plan: Assessment and plan #1 PEG tube leakage and bleeding. #2 chronic persistent atrial fibrillation, rapid ventricular response #3 known history of coronary artery disease with prior stent [facility] at [facility]. #4 hypertension 5 hyperlipidemia #6 end-stage COPD #7 throat cancer Plan At this point, we will continue the Cardizem drip at 10 mg per hour. Once the patient is able to take oral medications we will resume her oral Cardizem as well as oral beta kelly. DNP note has been reviewed, I agree with a documented findings and plan of care. Patient was seen and examined.
--- NOTE | 2017-05-03 14:58 | PN ---
CHIEF COMPLAINT: Neoplasm of the neck and secondary infection and necrosis around PEG tube. HISTORY OF PRESENT ILLNESS: This lady is going to the operating room today for revision of her PEG tube. There has been no interval change in her condition. PHYSICAL EXAM: She remains pain and chronically ill. CHEST: Clear. CARDIAC: Normal. ABDOMEN: Soft. PEG tube area is dressed. IMPRESSION: Pain, necrosis and cellulitis around PEG tube. PLAN: PEG tube revision today. CLAUDIO
--- NOTE | 2017-05-03 15:05 | P.PN ---
Subjective 72-year-old female being seen this morning sitting up on the edge of the bed. Did review surgical services recommendations in regards to the PEG tube malfunction. Currently the dressing around the PEG tube site appears to be leaking area tube feed on hold cardiology's participating in the plan of care as well. Patient had an episode yesterday of atrial fibrillation with a rapid ventricular response necessitating the patient being transferred from oncology unit to the cardiac unit. Currently this morning the IV Cardizem drip is at 10 maintaining better rate control patient denies any dizziness lightheadedness chest pain or heart palpitations when questioning Objective - Vital Signs Vital signs: Vital Signs Temp 96.8 F L 05/03/17 08:12 Pulse 84 05/03/17 12:24 Resp 18 05/03/17 08:12 BP 106/56 05/03/17 08:12 Pulse Ox 93 L 05/03/17 08:12 Intake & Output 05/02/17 05/03/17 05/03/17 18:59 06:59 18:59 Intake Total 405 200.667 123.833 Output Total 825 Balance 405 -624.333 123.833 Weight 73 kg 73.8 kg Intake: Intake, IV Titration 245 200.667 123.833 Amount Diltiazem 125 mg In 20 100.667 123.833 Sodium Chloride 0.9% 100 ml @ 10 MG/HR 10 mls/hr IV .[id number] [facility] Rx#: [id number] Magnesium Sulfate-D5w Pmx 100 1 gm In Dextrose/Water 1 100ml.bag @ 100 mls/hr IVPB ONCE ONE Rx#: [id number] Sodium Chloride 0.9% 1, 225 000 ml @ 75 mls/hr IV . [id number] [facility] Rx#:[id number] Oral 0 Tube Feeding 160 Output: Drainage 325 Abdomen 325 Urine 500 Other: Voiding Method Toilet Toilet Toilet # Voids 1 - Exam GENERAL APPEARANCE: 72-year-old female patient is alert, oriented, in no acute distress sitting up on the edge of the bed. VITAL SIGNS: Reviewed HEART: S1, S2. Irregular monitor atrial fibrillation denying heart palpitations IV Cardizem drip in progress LUNGS: Posterior diminished at the bases no audible wheezing ABDOMEN: Soft, nontender, nondistended with good bowel sounds. No peritoneal signs. No palpable organomegaly or masses. PEG tube site cellulitis to the abdominal wall dressing around the PEG tube site slightly damp to feed on hold EXTREMITIES: Normal skin color and turgor. No cyanosis, rash, ulceration, clubbing or edema. Radial pedal pulses are 2/4 bilaterally. NEUROLOGICAL: No focal deficits. Strength and sensation are grossly intact. - Labs CBC & Chem 7: 05/03/17 04:15 05/03/17 04:15 Labs: Abnormal Lab Results - Last 24 Hours (Table) 05/03/17 05/03/17 Range/Units 04:15 04:15 RBC 3.15 L (3.80-5.40) m/uL Hgb 9.4 L (11.4-16.0) gm/dL Hct 29.6 L (34.0-46.0) % RDW 19.2 H (11.5-15.5) % BUN 21 H (7-17) mg/dL Creatinine 0.43 L (0.52-1.04) mg/dL Total Protein 4.7 L (6.3-8.2) g/dL Albumin 2.6 L (3.5-5.0) g/dL Microbiology - Last 24 Hours (Table) 05/02/17 09:47 Blood Culture - Preliminary Blood No Growth after 24 hours Assessment and Plan Plan: Impression Present on admission leaking PEG tube with abdominal wall cellulitis involving the PEG tube site History of neck cancer Episode of persistent chronic atrial fibrillation with a episode of rapid ventricular response Echocardiogram 11/22/2016 left ventricular systolic function low normal with an EF between 50 and 55% with no evidence of pulmonary hypertension Anemia due to malignancy hemoglobin stable Known coronary artery disease Obstructive sleep apnea noncompliant with CPAP therapy Chronic persistent atrial fibrillation Active nicotine dependency Skin cancer involving the neck and the right cheek with resection with throat cancer on chemotherapy currently COPD with no evidence of an exacerbation Plan Check blood cultures 2 Respiratory treatments as ordered Anticoagulation to be addressed Further recommendations pending Await surgical services recommendations The above impression and plan of care have been discussed and directed by signing physician. Nancy Nobles nurse practitioner acting as scribe for signing physician.
--- NOTE | 2017-05-03 19:46 | P.PN ---
Subjective Principal diagnosis: Malfunctioning PEG tube The patient had her 20-Bulgarian gastrostomy tube changed last night to a 22- Bulgarian catheter. She unfortunately has had ongoing issues with gastric drainage around the tube since then. Only slightly improved since before the catheter change. She is hungry today. Mild discomfort around the tube site. Objective - Vital Signs Vital signs: Vital Signs Temp 97 F L 05/03/17 15:56 Pulse 90 05/03/17 16:43 Resp 18 05/03/17 15:56 BP 110/42 05/03/17 15:56 Pulse Ox 96 05/03/17 15:56 Intake & Output 05/03/17 05/03/17 05/04/17 06:59 18:59 06:59 Intake Total 200.667 223.833 Output Total 825 Balance -624.333 223.833 Weight 73.8 kg Intake: Intake, IV Titration 200.667 223.833 Amount Diltiazem 125 mg In 100.667 123.833 Sodium Chloride 0.9% 100 ml @ 10 MG/HR 10 mls/hr IV .[id number] [facility] Rx#: [id number] Diltiazem 125 mg In 100 Sodium Chloride 0.9% 100 ml @ 10 MG/HR 10 mls/hr IV .[id number] [facility] Rx#: [id number] Magnesium Sulfate-D5w Pmx 100 1 gm In Dextrose/Water 1 100ml.bag @ 100 mls/hr IVPB ONCE ONE Rx#: [id number] Output: Drainage 325 Abdomen 325 Urine 500 Other: Voiding Method Toilet Toilet # Voids 1 - Exam Abdomen: Soft, nondistended, mild tenderness with maceration and slight erythema around the feeding tube site - Labs CBC & Chem 7: 05/03/17 04:15 05/03/17 04:15 Labs: Abnormal Lab Results - Last 24 Hours (Table) 05/03/17 05/03/17 Range/Units 04:15 04:15 RBC 3.15 L (3.80-5.40) m/uL Hgb 9.4 L (11.4-16.0) gm/dL Hct 29.6 L (34.0-46.0) % RDW 19.2 H (11.5-15.5) % BUN 21 H (7-17) mg/dL Creatinine 0.43 L (0.52-1.04) mg/dL Total Protein 4.7 L (6.3-8.2) g/dL Albumin 2.6 L (3.5-5.0) g/dL Microbiology - Last 24 Hours (Table) 05/02/17 09:47 Blood Culture - Preliminary Blood No Growth after 24 hours Assessment and Plan (1) PEG tube malfunction Narrative/Plan: Options again discussed with the patient and her family. At this point we will take the patient down to the endoscopy suite tomorrow to see if a new PEG tube catheter can be placed. If so the original gastrostomy tube will be removed in the wound will be packed. The potential that the wound would be nonhealing was discussed. The potential that she made develop a similar situation at the new tube site was also discussed. Options of J-tube placement were also reviewed. The risks of bleeding, infection, bowel injury, nonhealing wound was discussed. They understand and wish to proceed. Status: Acute
[2017-05-03] MEDS: LEVOFLOXACIN 500MG-D5W PMX 500 MG in DEXTROSE/WATER 1 100ML.BAG IVPB SCH (21:26)
[2017-05-03] MEDS: ATORVASTATIN 20 MG TAB PEG/G-TUBE SCH (21:46)
[2017-05-04] MEDS: IPRATROPIUM-ALBUTEROL 3 ML NEB INHALATION SCH ×6 (00:11→20:59)
[2017-05-04] MEDS: HYDROmorphone 1 MG/ML 1 ML SYRINGE IV PRN ×8 (00:26→21:42)
[2017-05-04 06:28] LABS: ALT 39 U/L (9-52); AST 19 U/L (14-36); Alkaline Phosphatase 80 U/L (38-126); Anion Gap 9 mmol/L; Blood Urea Nitrogen 15 mg/dL (7-17); Calcium 8.7 mg/dL (8.4-10.2); Carbon Dioxide 27 mmol/L (22-30); Chloride 101 mmol/L (98-107); Glucose 77 mg/dL (74-99); Non-African American GFR(MDRD) >60 (>60 ml/min/1.73 sqM); Potassium 3.4 mmol/L (3.5-5.1); Sodium 137 mmol/L (137-145); Total Bilirubin 0.4 mg/dL (0.2-1.3)
[2017-05-04] MEDS: METOPROLOL TARTRATE 25 MG TAB PEG/G-TUBE SCH ×2 (08:16→21:43)
[2017-05-04] MEDS: PANTOPRAZOLE 40 MG/10 ML VIAL IVP SCH (08:16)
[2017-05-04] MEDS: FAMOTIDINE 20 MG TAB PO SCH (08:16)
[2017-05-04] MEDS: CEPHALEXIN 250 MG CAP PO SCH ×4 (08:17→21:42)
[2017-05-04] MEDS: BUDESONIDE 0.5 MG/2 ML NEBU INHALATION SCH ×2 (08:19→20:59)
--- NOTE | 2017-05-04 09:16 | P.PN ---
Subjective 72-year-old female seen and evaluated. Currently sitting up on the edge of the bed. Continues to be on IV Cardizem drip with the monitor showing atrial fibrillation controlled ventricular response. Aware the plan of care. Patient is scheduled to go to the endoscopy suite for surgical service to evaluate whether a new PEG tube catheter can be placed. Tube feeds Continue to be on hold did note the potassium this morning is 3.4. Replacement will be given Objective - Vital Signs Vital signs: Vital Signs Temp 97.0 F L 05/04/17 08:00 Pulse 124 H 05/04/17 08:22 Resp 18 05/04/17 08:00 BP 118/69 05/04/17 08:00 Pulse Ox 98 05/04/17 08:00 Intake & Output 05/03/17 05/04/17 05/04/17 18:59 06:59 18:59 Intake Total 223.833 100 Output Total 650 Balance 223.833 -550 Weight 73.5 kg Intake: IV 100 Levofloxacin 500Mg-D5w 100 Pmx 500 mg In Dextrose/ Water 1 100ml.bag @ 100 mls/hr IVPB Q24H [facility] Rx#: [id number] Intake, IV Titration 223.833 Amount Diltiazem 125 mg In 123.833 Sodium Chloride 0.9% 100 ml @ 10 MG/HR 10 mls/hr IV .[id number] [facility] Rx#: [id number] Diltiazem 125 mg In 100 Sodium Chloride 0.9% 100 ml @ 10 MG/HR 10 mls/hr IV .[id number] [facility] Rx#: [id number] Output: Gastric Drainage 650 Other: Voiding Method Toilet Toilet Toilet - Exam physical exam 72-year-old female sitting up on the edge of the bed. Appears in no acute distress. Is aware of the plan of care. Lungs diminished at the bases upper airways adequate airway on room air sats are 98 Heart S1-S2 audible irregular monitor A. fib heart rate 90s to 120s Abdomen dressing to the PEG tube site dry soft nondistended Extremities trace pedal edema bilaterally - Labs CBC & Chem 7: 05/03/17 04:15 05/04/17 06:08 Labs: Abnormal Lab Results - Last 24 Hours (Table) 05/04/17 Range/Units 06:08 Potassium 3.4 L (3.5-5.1) mmol/L Creatinine 0.40 L (0.52-1.04) mg/dL Total Protein 5.0 L (6.3-8.2) g/dL Albumin 2.8 L (3.5-5.0) g/dL Microbiology - Last 24 Hours (Table) 05/02/17 09:47 Blood Culture - Preliminary Blood No Growth after 24 hours Assessment and Plan Plan: Impression Present on admission leaking PEG tube with abdominal wall cellulitis involving the PEG tube site History of neck cancer Episode of persistent chronic atrial fibrillation with a episode of rapid ventricular response Echocardiogram 11/22/2016 left ventricular systolic function low normal with an EF between 50 and 55% with no evidence of pulmonary hypertension Anemia due to malignancy hemoglobin stable Known coronary artery disease Obstructive sleep apnea noncompliant with CPAP therapy Chronic persistent atrial fibrillation Active nicotine dependency Skin cancer involving the neck and the right cheek with resection with throat cancer on chemotherapy currently COPD with no evidence of an exacerbation Hypokalema electrolyte imbalance Plan Potassium to be replaced Await further recommendations by surgical service Check blood cultures 2 Respiratory treatments as ordered Anticoagulation to be addressed Repeat labs in the morning The above impression and plan of care have been discussed and directed by signing physician. Nancy Nobles nurse practitioner acting as scribe for signing physician.
[2017-05-04] MEDS: POTASSIUM CHLORIDE 10 MEQ, LIDOCAINE 2% INJ 10 MG in SODIUM CHLORIDE 0.9% 100 ML IVPB SCH ×4 (11:08→16:23)
[2017-05-04] MEDS: DILTIAZEM 125 MG in SODIUM CHLORIDE 0.9% 100 ML IV SCH (12:03)
[2017-05-04] MEDS ORDERED: PROPOFOL 10 MG/ML 20 ML VIAL IV ONE (14:34)
[2017-05-04] MEDS ORDERED: SODIUM CHLORIDE 0.9% 1,000 ML IV ONE (14:34)
[2017-05-04] MEDS ORDERED: LIDOCAINE 1% INJ 10MG/ML (20 ML MDV) ONE (14:34)
[2017-05-04] MEDS ORDERED: MVI, ADULT NO.4 WITH VIT K 10 ML, TRACE (CONC-1ML/DOSE) 1 ML in AMINO ACID 5%-D25W+LYTE... IV ONE ×3 (15:00)
--- NOTE | 2017-05-04 15:30 | P.OP ---
Date of Procedure: 05/04/17 Preoperative Diagnosis: Postoperative Diagnosis: Procedure(s) Performed: MPREOPERATIVE DIAGNOSIS: Malnutrition, malfunctioning G-tube POSTOPERATIVE DIAGNOSIS: Same PROCEDURE: EGD with PEG tube placement and G-tube removal SURGEON: Sanket EBL: Minimal ANESTHESIA: Sedation COMPLICATIONS: None OPERATIVE PROCEDURE: The patient was placed in the supine position on the endoscopy table. The patient was sedated per anesthesia that time. The Olympus gastroscope was inserted into the oropharynx and passed under direct visualization to the region of the duodenum. No obstruction was seen. The pylorus was widely patent. The stomach was carefully inspected. The stomach was fully insufflated with air. The patient's prior gastrostomy tube was present in the mid to distal body of the stomach. The balloon was fully inflated. The gastrotomy itself did appear slightly larger than normal. I was able to see a light shining through the abdominal wall distal to this in the region of the antrum. This site was chosen for PEG tube placement. The skin was localized. A small vertical incision was made using the scalpel. The Seldinger needle was advanced into the lumen of the stomach the wire was advanced. The wire was grasped with an endoscopic snare. The wire was pulled through the oropharynx. The catheter was then threaded over the guidewire and the guidewire and catheter were pulled anteriorly until the hub of the PEG tube catheter was seated against the anterior wall the stomach. The circular bolster was applied and tightened down to 4 cm. The endoscope was then readvanced into the stomach. There was no evidence of any bleeding and there was appropriate tightness on the bolster. The catheter was cut appropriately. The dual port feeding adapter was applied. The prior G-tube was then removed by removing the fluid from the balloon. I was able to visualize a silk suture on the gastric wall. The wound where the prior G-tube was placed was packed with 4 x 4 gauze. A sterile dressing was applied at the PEG tube site. DISPOSITION: Stable to recovery room Implants: Indications for Procedure: Operative Findings: Description of Procedure:
--- NOTE | 2017-05-04 16:00 | P.PN ---
Subjective This is a pleasant 72-year-old female with history of chronic persistent atrial fibrillation, coronary artery disease with prior stent placement before it hospital, severe COPD endstage, throat cancer, who presented to the hospital because she noticed increased leakage and drainage from her PEG tube with significant blood present. He states that it has been leaking for quite some time, she was recently in the emergency room with similar complaints. Because of the leakage from the PEG tube, patient has not been getting her oral medications which include the Cardizem and Lopressor, as morning, heart rate went up into the 140s and patient was transferred to the telemetry unit for further evaluation. Patient was started on IV Cardizem drip at 10 mg per hour. Heart rate currently in the 80s-90s. At the time of my examination, she denies any palpitations, no overt shortness of breath, she just feels extremely weak and tired. We are currently still unable to use her PEG tube which continues to leak. Patient is awaiting transport to OR for replacement. Objective - Vital Signs Vital signs: Vital Signs Temp 97.1 F L 05/04/17 15:40 Pulse 86 05/04/17 15:43 Resp 18 05/04/17 15:43 BP 133/60 05/04/17 15:40 Pulse Ox 100 05/04/17 15:40 Intake & Output 05/03/17 05/04/17 05/04/17 18:59 06:59 18:59 Intake Total 223.833 225 145 Output Total 650 Balance 223.833 -425 145 Weight 73.5 kg 73.5 kg Intake: IV 100 100 Levofloxacin 500Mg-D5w 100 Pmx 500 mg In Dextrose/ Water 1 100ml.bag @ 100 mls/hr IVPB Q24H [facility] Rx#: [id number] Intake, IV Titration 223.833 125 45 Amount Diltiazem 125 mg In 123.833 Sodium Chloride 0.9% 100 ml @ 10 MG/HR 10 mls/hr IV .[id number] [facility] Rx#: [id number] Diltiazem 125 mg In 100 125 45 Sodium Chloride 0.9% 100 ml @ 10 MG/HR 10 mls/hr IV .[id number] [facility] Rx#: [id number] Output: Gastric Drainage 650 Other: Voiding Method Toilet Toilet Toilet - Exam PHYSICAL EXAMINATION: HEENT: Head is atraumatic, normocephalic. Pupils equal, round. Neck is supple. There is no elevated jugular venous pressure. HEART EXAMINATION: Heart S1 and S2 irregularly irregular CHEST EXAMINATION: Lungs reveal scattered coarse wheezes and rhonchi throughout. ABDOMEN: Soft, nontender. Bowel sounds are heard. No organomegaly noted. PEG tube in place, mild leakage. EXTREMITIES: 1+ peripheral pulses with no evidence of peripheral edema and no calf tenderness noted. NEUROLOGIC patient is awake, alert and oriented x3. - Labs CBC & Chem 7: 05/03/17 04:15 05/04/17 06:08 Labs: Abnormal Lab Results - Last 24 Hours (Table) 05/04/17 Range/Units 06:08 Potassium 3.4 L (3.5-5.1) mmol/L Creatinine 0.40 L (0.52-1.04) mg/dL Total Protein 5.0 L (6.3-8.2) g/dL Albumin 2.8 L (3.5-5.0) g/dL Microbiology - Last 24 Hours (Table) 05/02/17 09:47 Blood Culture - Preliminary Blood No Growth after 48 hours Assessment and Plan Plan: Assessment and plan #1 PEG tube leakage and bleeding. #2 chronic persistent atrial fibrillation, rapid ventricular response #3 known history of coronary artery disease with prior stent placement at [facility]. #4 hypertension 5 hyperlipidemia #6 end-stage COPD #7 throat cancer Plan At this point, we will continue the Cardizem drip at 10 mg per hour. Once the patient is able to take oral medications we will resume her oral Cardizem as well as oral beta kelly. 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 Patient was seen and examined.
[2017-05-04 16:16] LABS: Magnesium 1.7 mg/dL (1.6-2.3); Phosphorous 3.5 mg/dL (2.5-4.5)
[2017-05-04] MEDS: LEVOFLOXACIN 500MG-D5W PMX 500 MG in DEXTROSE/WATER 1 100ML.BAG IVPB SCH (20:28)
[2017-05-04 20:43] LABS: Glucose,Whole Blood 79 mg/dL (75-99)
[2017-05-04] MEDS: ATORVASTATIN 20 MG TAB PEG/G-TUBE SCH (21:43)
[2017-05-05] MEDS: HYDROmorphone 1 MG/ML 1 ML SYRINGE IV PRN ×7 (00:26→18:42)
[2017-05-05] MEDS: IPRATROPIUM-ALBUTEROL 3 ML NEB INHALATION SCH ×7 (00:40→23:18)
[2017-05-05 03:09] LABS: Glucose,Whole Blood 125 mg/dL (75-99)
[2017-05-05] MEDS: DILTIAZEM 125 MG in SODIUM CHLORIDE 0.9% 100 ML IV SCH (03:19)
[2017-05-05 07:03] LABS: Anisocytosis Moderate; CH 30.4; CHCM 31.7; HCT 28.1 % (34.0-46.0); HDW 2.89; HGB 8.6 gm/dL (11.4-16.0); Hypochromasia Slight; MCH 29.5 pg (25.0-35.0); MCHC 30.7 g/dL (31.0-37.0); MCV 96.3 fL (80.0-100.0); Macrocytosis Slight; Mean Platelet Volume 7.8; RBC 2.92 m/uL (3.80-5.40); RDW 20.2 % (11.5-15.5); WBC 4.7 k/uL (3.8-10.6)
[2017-05-05 07:16] LABS: Ionized Calcium 4.8 mg/dL (4.5-5.3)
[2017-05-05 07:26] LABS: ALT 29 U/L (9-52); AST 15 U/L (14-36); Alkaline Phosphatase 62 U/L (38-126); Anion Gap 6 mmol/L; Blood Urea Nitrogen 10 mg/dL (7-17); Carbon Dioxide 27 mmol/L (22-30); Chloride 103 mmol/L (98-107); Glucose 137 mg/dL (74-99); Magnesium 1.5 mg/dL (1.6-2.3); Non-African American GFR(MDRD) >60 (>60 ml/min/1.73 sqM); Phosphorous 2.9 mg/dL (2.5-4.5); Potassium 3.3 mmol/L (3.5-5.1); Sodium 136 mmol/L (137-145); Total Bilirubin 0.3 mg/dL (0.2-1.3); Total Protein 4.4 g/dL (6.3-8.2)
[2017-05-05] MEDS ORDERED: Potassium Replacement Protocol 1 EACH MISC MISCELLANE PRN (07:47)
[2017-05-05] MEDS ORDERED: Magnesium Replacement Protocol 1 EACH MISC MISCELLANE PRN (07:49)
[2017-05-05] MEDS: MAGNESIUM SULFATE-D5W PMX 1 GM in DEXTROSE/WATER 1 100ML.BAG IVPB SCH ×2 (08:14→10:45)
[2017-05-05] MEDS: BUDESONIDE 0.5 MG/2 ML NEBU INHALATION SCH ×2 (08:17→19:45)
[2017-05-05 09:17] LABS: Glucose,Whole Blood 171 mg/dL (75-99)
--- NOTE | 2017-05-05 09:30 | PN ---
CHIEF COMPLAINT: Necrosis around PEG tube and CA of the neck. HISTORY OF PRESENT ILLNESS: This lady is to go down for attempted revision on the PEG tube via gastrostomy but this is to be done later today. PHYSICAL EXAMINATION: She remains pale and lethargic. Chest is clear. Cardiac exam is normal. IMPRESSION: 1. Infection and necrosis around the PEG tube. 2. Neoplasm of the neck. 3. Chronic obstructive pulmonary disease. PLAN: Revision of PEG tube today. CLAUDIO
--- NOTE | 2017-05-05 09:41 | P.PN ---
Subjective Principal diagnosis: Malfunctioning PEG tube Patient doing well today. Still with some drainage from the old G-tube site but improved. Pain seems slightly less. White blood cell count 4.7. Objective - Vital Signs Vital signs: Vital Signs Temp 97.6 F 05/05/17 04:00 Pulse 88 05/05/17 08:32 Resp 20 05/05/17 04:00 BP 128/74 05/05/17 04:00 Pulse Ox 98 05/05/17 08:32 Intake & Output 05/04/17 05/05/17 05/05/17 18:59 06:59 18:59 Intake Total 145 555 Output Total 925 Balance 145 -370 Weight 73.5 kg 73.2 kg Intake: IV 100 430 0.9 @ 20mls/hr 100 Diltiazem 125 mg In 50 Sodium Chloride 0.9% 100 ml @ 10 MG/HR 10 mls/hr IV .[id number] [facility] Rx#: [id number] Levofloxacin 500Mg-D5w 100 Pmx 500 mg In Dextrose/ Water 1 100ml.bag @ 100 mls/hr IVPB Q24H [facility] Rx#: [id number] Mvi, Adult No.4 with Vit 180 K 10 ml Trace (Conc-1Ml/ Dose) 1 ml In Amino Acid 5%-D25w+Lytes*E* 1,000 ml @ 30 mls/hr IV .Q24H [facility] Rx#:[id number] Intake, IV Titration 45 125 Amount Diltiazem 125 mg In 45 125 Sodium Chloride 0.9% 100 ml @ 10 MG/HR 10 mls/hr IV .[id number] [facility] Rx#: [id number] Output: Drainage 325 Abdomen 325 Urine 600 Other: Voiding Method Toilet Toilet # Voids 1 - Exam Abdomen: Soft, nondistended, mild tenderness, induration and maceration around the old G-tube site slightly improved - Labs CBC & Chem 7: 05/05/17 06:53 05/05/17 06:53 Labs: Abnormal Lab Results - Last 24 Hours (Table) 05/05/17 05/05/17 05/05/17 Range/Units 03:07 06:53 06:53 RBC 2.92 L (3.80-5.40) m/uL Hgb 8.6 L (11.4-16.0) gm/dL Hct 28.1 L (34.0-46.0) % MCHC 30.7 L (31.0-37.0) g/dL RDW 20.2 H (11.5-15.5) % Sodium 136 L (137-145) mmol/L Potassium 3.3 L (3.5-5.1) mmol/L Creatinine 0.36 L (0.52-1.04) mg/dL Glucose 137 H (74-99) mg/dL POC Glucose (mg/dL) 125 H (75-99) mg/dL Calcium 8.0 L (8.4-10.2) mg/dL Magnesium 1.5 L (1.6-2.3) mg/dL Total Protein 4.4 L (6.3-8.2) g/dL Albumin 2.5 L (3.5-5.0) g/dL 05/05/17 Range/Units 09:07 RBC (3.80-5.40) m/uL Hgb (11.4-16.0) gm/dL Hct (34.0-46.0) % MCHC (31.0-37.0) g/dL RDW (11.5-15.5) % Sodium (137-145) mmol/L Potassium (3.5-5.1) mmol/L Creatinine (0.52-1.04) mg/dL Glucose (74-99) mg/dL POC Glucose (mg/dL) 171 H (75-99) mg/dL Calcium (8.4-10.2) mg/dL Magnesium (1.6-2.3) mg/dL Total Protein (6.3-8.2) g/dL Albumin (3.5-5.0) g/dL Microbiology - Last 24 Hours (Table) 05/02/17 09:47 Blood Culture - Preliminary Blood No Growth after 48 hours Assessment and Plan (1) PEG tube malfunction Narrative/Plan: Continue local wound care at the g-tube site. We'll consider wound VAC if necessary. Status: Acute
[2017-05-05] MEDS: POTASSIUM CHLORIDE 10 MEQ, LIDOCAINE 2% INJ 10 MG in SODIUM CHLORIDE 0.9% 100 ML IV SCH ×2 (09:44→12:07)
[2017-05-05] MEDS: CEPHALEXIN 250 MG CAP PO SCH (09:50)
[2017-05-05] MEDS: PANTOPRAZOLE 40 MG/10 ML VIAL IVP SCH (09:52)
[2017-05-05] MEDS: METOPROLOL TARTRATE 25 MG TAB PEG/G-TUBE SCH ×2 (09:55→20:26)
--- NOTE | 2017-05-05 10:11 | P.PN ---
Progress Note - Text This is a pleasant 72-year-old female patient with known chronic persistent atrial fibrillation, CAD and prior angioplasty and stenting, advanced stage COPD, as well as multiple comorbid conditions was admitted to the hospital because of increased leakage and drainage from her PEG tube. The reason we get involved in the care of the patient because the patient by mouth medication including the Cardizem and Lopressor were held. The patient went into an A. fib with RVR. Subsequently she was started on Cardizem IV. Currently she has been maintaining heart rate in the 90s to 100 on the Cardizem IV. We'll continue the Cardizem IV total the patient is not nothing by mouth any more wet we can resume her by mouth Cardizem and Lopressor.
[2017-05-05] MEDS ORDERED: FUROSEMIDE 10 MG/ML 4 ML VIAL IV STA (12:26)
[2017-05-05 15:09] LABS: Glucose,Whole Blood 194 mg/dL (75-99)
[2017-05-05] MEDS: MVI, ADULT NO.4 WITH VIT K 10 ML, TRACE (CONC-1ML/DOSE) 1 ML in AMINO ACID 5%-D25W+LYTE... IV SCH ×3 (15:51)
[2017-05-05] MEDS: ATORVASTATIN 20 MG TAB PEG/G-TUBE SCH (20:27)
[2017-05-05] MEDS: LEVOFLOXACIN 500MG-D5W PMX 500 MG in DEXTROSE/WATER 1 100ML.BAG IVPB SCH (20:29)
[2017-05-05] MEDS: HYDROmorphone 1 MG/ML 1 ML SYRINGE IVP PRN ×2 (20:30→22:44)
[2017-05-05 20:39] LABS: Glucose,Whole Blood 205 mg/dL (75-99)
--- NOTE | 2017-05-05 21:02 | PN ---
CHIEF COMPLAINT: CA of the neck and infection and necrosis around PEG tube. HISTORY OF PRESENT ILLNESS: This lady is sleeping and difficult to arouse. PHYSICAL EXAMINATION: She remains pale and breath sounds are heard on both sides. IMPRESSION: 1. Infection and necrosis around the PEG tube. 2. Carcinoma of the neck. PLAN: No change in treatment program at this time and await recommendations from surgery. CLAUDIO
[2017-05-05] MEDS: INSULIN LISPRO (humaLOG) 300 UNIT/3 ML VIAL SQ SCH (21:48)
[2017-05-06] MEDS: HYDROmorphone 1 MG/ML 1 ML SYRINGE IVP PRN ×9 (00:55→22:34)
[2017-05-06 03:25] LABS: Glucose,Whole Blood 103 mg/dL (75-99)
[2017-05-06] MEDS: INSULIN LISPRO (humaLOG) 300 UNIT/3 ML VIAL SQ SCH ×4 (03:27→20:51)
[2017-05-06] MEDS: IPRATROPIUM-ALBUTEROL 3 ML NEB INHALATION SCH ×6 (03:34→23:16)
[2017-05-06] MEDS: BUDESONIDE 0.5 MG/2 ML NEBU INHALATION SCH ×2 (07:30→19:45)
[2017-05-06] MEDS: METOPROLOL TARTRATE 25 MG TAB PEG/G-TUBE SCH ×2 (08:16→20:51)
[2017-05-06] MEDS: PANTOPRAZOLE 40 MG/10 ML VIAL IVP SCH (08:20)
[2017-05-06] MEDS: DILTIAZEM ORAL 30 MG TAB PO SCH ×3 (08:29→20:51)
--- NOTE | 2017-05-06 09:59 | P.PN ---
Subjective Principal diagnosis: Malfunctioning PEG tube Patient still having some drainage although slightly improved. Pain is a bit more last night. No fevers. Objective - Vital Signs Vital signs: Vital Signs Temp 97.5 F L 05/06/17 03:59 Pulse 106 H 05/06/17 07:45 Resp 18 05/06/17 03:59 BP 131/73 05/06/17 03:59 Pulse Ox 98 05/06/17 03:59 Intake & Output 05/05/17 05/06/17 05/06/17 18:59 06:59 18:59 Intake Total 780 555 Output Total 750 1200 Balance 30 -645 Weight 71.3 kg Intake: IV 480 555 0.9 @ 10mls/hr 160 90 Diltiazem 125 mg In 80 Sodium Chloride 0.9% 100 ml @ 10 MG/HR 10 mls/hr IV .[id number] [facility] Rx#: [id number] Levofloxacin 500Mg-D5w 100 Pmx 500 mg In Dextrose/ Water 1 100ml.bag @ 100 mls/hr IVPB Q24H [facility] Rx#: [id number] Mvi, Adult No.4 with Vit 240 K 10 ml Trace (Conc-1Ml/ Dose) 1 ml In Amino Acid 5%-D25w+Lytes*E* 1,000 ml @ 30 mls/hr IV .Q24H [facility] Rx#:[id number] Mvi, Adult No.4 with Vit 365 K 10 ml Trace (Conc-1Ml/ Dose) 1 ml In Amino Acid 5%-D25w+Lytes*E* 1,000 ml @ 45 mls/hr IV .[id number] [facility] Rx#:[id number] Intake, IV Titration 300 Amount Magnesium Sulfate-D5w Pmx 200 1 gm In Dextrose/Water 1 100ml.bag @ 100 mls/hr IVPB Q1H [facility] Rx#: [id number] Potassium Chloride 10 meq 100 Lidocaine 2% Inj 10 mg In Sodium Chloride 0.9% 100 ml @ 100 mls/hr IV Q1HR [facility] Rx#:[id number] Output: Drainage 700 Abdomen 700 Urine 750 500 Other: Voiding Method Toilet # Voids 1 - Exam Abdomen: Soft, nondistended, tender is still present around the G-tube site With maceration still present - Labs CBC & Chem 7: 05/05/17 06:53 05/05/17 06:53 Labs: Abnormal Lab Results - Last 24 Hours (Table) 05/05/17 05/05/17 05/06/17 Range/Units 14:59 20:38 03:24 POC Glucose (mg/dL) 194 H 205 H 103 H (75-99) mg/dL Microbiology - Last 24 Hours (Table) 05/02/17 09:47 Blood Culture - Preliminary Blood No Growth after 72 hours Assessment and Plan (1) PEG tube malfunction Narrative/Plan: Will start wound VAC therapy at the old G-tube site today. Continue analgesics. Status: Acute
[2017-05-06 10:07] LABS: Hemoglobin A1C 7.6 % (4.2-6.1)
[2017-05-06 10:12] LABS: Glucose,Whole Blood 188 mg/dL (75-99)
[2017-05-06 12:06] LABS: Ionized Calcium 4.7 mg/dL (4.5-5.3)
[2017-05-06 12:16] LABS: Anion Gap 9 mmol/L; Blood Urea Nitrogen 14 mg/dL (7-17); Calcium 8.5 mg/dL (8.4-10.2); Carbon Dioxide 27 mmol/L (22-30); Chloride 99 mmol/L (98-107); Glucose 163 mg/dL (74-99); Magnesium 1.7 mg/dL (1.6-2.3); Non-African American GFR(MDRD) >60 (>60 ml/min/1.73 sqM); Phosphorous 3.5 mg/dL (2.5-4.5); Potassium 3.6 mmol/L (3.5-5.1); Sodium 135 mmol/L (137-145)
--- NOTE | 2017-05-06 14:31 | P.PN ---
Progress Note - Text This is a pleasant 72-year-old female patient with known chronic persistent atrial fibrillation, CAD and prior angioplasty and stenting, advanced stage COPD, as well as multiple comorbid conditions was admitted to the hospital because of increased leakage and drainage from her PEG tube. The reason we get involved in the care of the patient because the patient by mouth medication including the Cardizem and Lopressor were held. The patient went into an A. fib with RVR. Subsequently she was started on Cardizem IV. Currently she has been maintaining heart rate in the 100 and 110 . She is receiving metoprolol as well as Cardizem through the [facility]. I will continue monitoring the heart rate for additional 24 hours and increase the dose of metoprolol or Cardizem if she continues to be tachycardic.
[2017-05-06 15:16] LABS: Glucose,Whole Blood 114 mg/dL (75-99)
[2017-05-06] MEDS: MVI, ADULT NO.4 WITH VIT K 10 ML, TRACE (CONC-1ML/DOSE) 1 ML in AMINO ACID 5%-D25W+LYTE... IV SCH ×3 (15:33)
[2017-05-06] MEDS ORDERED: hydrOXYzine HCL 25 MG TAB PO PRN (18:00)
[2017-05-06] MEDS ORDERED: FUROSEMIDE 10 MG/ML 2 ML VIAL IV STA (18:36)
[2017-05-06] MEDS: LEVOFLOXACIN 500MG-D5W PMX 500 MG in DEXTROSE/WATER 1 100ML.BAG IVPB SCH (20:34)
[2017-05-06 20:39] LABS: Glucose,Whole Blood 145 mg/dL (75-99)
[2017-05-06] MEDS: ATORVASTATIN 20 MG TAB PEG/G-TUBE SCH (20:51)
[2017-05-07] MEDS: HYDROmorphone 1 MG/ML 1 ML SYRINGE IVP PRN ×10 (00:32→22:26)
[2017-05-07 02:55] LABS: Glucose,Whole Blood 155 mg/dL (75-99)
[2017-05-07] MEDS: IPRATROPIUM-ALBUTEROL 3 ML NEB INHALATION SCH ×6 (03:23→23:42)
[2017-05-07] MEDS: INSULIN LISPRO (humaLOG) 300 UNIT/3 ML VIAL SQ SCH ×4 (03:59→21:24)
[2017-05-07 06:32] LABS: Anion Gap 7 mmol/L; Blood Urea Nitrogen 16 mg/dL (7-17); Calcium 8.4 mg/dL (8.4-10.2); Carbon Dioxide 33 mmol/L (22-30); Chloride 96 mmol/L (98-107); Glucose 91 mg/dL (74-99); Magnesium 1.6 mg/dL (1.6-2.3); Non-African American GFR(MDRD) >60 (>60 ml/min/1.73 sqM); Phosphorous 3.8 mg/dL (2.5-4.5); Potassium 3.4 mmol/L (3.5-5.1); Sodium 136 mmol/L (137-145)
[2017-05-07] MEDS: DILTIAZEM 125 MG in SODIUM CHLORIDE 0.9% 100 ML IV SCH ×3 (08:46→21:24)
[2017-05-07] MEDS: PANTOPRAZOLE 40 MG/10 ML VIAL IVP SCH (08:49)
[2017-05-07] MEDS ORDERED: POTASSIUM CHLORIDE 20 MEQ in WATER FOR INJECTION 1 100ML.BAG IVPB ONE (09:00)
[2017-05-07] MEDS ORDERED: hydrOXYzine HCL 25 MG TAB PO PRN (09:11)
[2017-05-07] MEDS ORDERED: HYDROmorphone 1 MG/ML 1 ML SYRINGE IVP PRN (09:13)
--- NOTE | 2017-05-07 09:28 | XR ---
EXAMINATION TYPE: XR chest 1V portable DATE OF EXAM: 05/07/2017 COMPARISON: 05/02/2017 HISTORY: Shortness of breath TECHNIQUE: Single frontal view of the chest is obtained. FINDINGS: There is a trace left pleural effusion and associated left basilar atelectasis, decreased from the prior exam. There is redemonstration of cardiomegaly and a right-sided Mediport with a singl e Heubner needle. No pneumothorax is appreciated. No evidence of pulmonary vascular congestion. IMPRESSION: Decreasing left pleural effusion with associated left basilar compressive atelectasis.
[2017-05-07 09:52] LABS: Glucose,Whole Blood 160 mg/dL (75-99)
[2017-05-07 10:19] LABS: Anisocytosis Slight; Basophils % (A) 1 %; CH 29.6; CHCM 31.1; Eosinophils # (A) 0.3 k/uL (0-0.7); Eosinophils % (A) 5 %; HCT 31.7 % (34.0-46.0); HDW 2.92; Hypochromasia Slight; Luc # (Auto) 0.17; Luc % (Auto) 3; Lymphocytes # (A) 1.5 k/uL (1.0-4.8); Lymphocytes % (A) 24 %; MCH 30.1 pg (25.0-35.0); MCHC 31.5 g/dL (31.0-37.0); MCV 95.5 fL (80.0-100.0); Macrocytosis Slight; Mean Platelet Volume 7.5; Monocytes # (A) 0.7 k/uL (0-1.0); Monocytes % (A) 10 %; Neutrophils # (A) 3.7 k/uL (1.3-7.7); Neutrophils % (A) 58 %; RBC 3.32 m/uL (3.80-5.40); RDW 19.8 % (11.5-15.5); WBC 6.4 k/uL (3.8-10.6)
[2017-05-07] MEDS: MAGNESIUM SULFATE-D5W PMX 1 GM in DEXTROSE/WATER 1 100ML.BAG IVPB SCH ×2 (10:20→13:28)
[2017-05-07 10:21] LABS: INR 1.3 (<1.2); Prothrombin Time 12.6 sec (9.0-12.0)
--- NOTE | 2017-05-07 10:38 | P.PN ---
Subjective 72-year-old female being seen on rounds this morning lethargic does open eyes to verbal stimuli pulse ox sat on room air 95% heart rate 110 afebrile patient continues to have bloody drainage around the PEG tube. The dressing was changed did note the patient did have a moderate clot. Patient is being followed by cardiology and surgical service. Labs were reviewed the potassium 3.4 INR 1.3 and the January 1 0.6 patient does have TPN there is concern patient will need a PICC line no peripheral IV access abdominal wound erythema with skin excoriation noted to the abdominal wall Objective - Vital Signs Vital signs: Vital Signs Temp 97.0 F L 05/07/17 04:00 Pulse 106 H 05/07/17 04:00 Resp 18 05/07/17 04:00 BP 130/102 05/07/17 04:00 Pulse Ox 95 05/07/17 04:00 Intake & Output 05/06/17 05/07/17 05/07/17 18:59 06:59 18:59 Intake Total 1451 265 Output Total 2150 Balance 1451 -1885 Weight 71.4 kg Intake: IV 440 265 0.9 @ 10mls/hr 80 30 Levofloxacin 500Mg-D5w 100 Pmx 500 mg In Dextrose/ Water 1 100ml.bag @ 100 mls/hr IVPB Q24H [facility] Rx#: [id number] Mvi, Adult No.4 with Vit 360 135 K 10 ml Trace (Conc-1Ml/ Dose) 1 ml In Amino Acid 5%-D25w+Lytes*E* 1,000 ml @ 45 mls/hr IV .[id number] [facility] Rx#:[id number] Intake, IV Titration 1011 Amount Mvi, Adult No.4 with Vit 1011 K 10 ml Trace (Conc-1Ml/ Dose) 1 ml In Amino Acid 5%-D25w+Lytes*E* 1,000 ml @ 45 mls/hr IV .[id number] [facility] Rx#:[id number] Output: Urine 2150 Other: Voiding Method Toilet # Voids 2 - Exam Physical exam 72-year-old female arousable to verbal stimuli opens eyes oriented to person place and event Lungs posterior diminished at the bases poor air entry upper airways coarse rhonchi sats on room air 95% occasional nonproductive cough noted Heart S1-S2 audible irregular monitor A. fib variable ventricular response Abdomen skin excoriation noted around the PEG tube site not distended no stooling urinating no difficulty Extremities no evidence of edema to the lower extremities - Labs CBC & Chem 7: 05/05/17 06:53 05/07/17 06:07 Labs: Abnormal Lab Results - Last 24 Hours (Table) 05/06/17 05/06/17 05/06/17 Range/Units 11:28 15:03 20:36 PT (9.0-12.0) sec INR (<1.2) Sodium 135 L (137-145) mmol/L Potassium (3.5-5.1) mmol/L Chloride (98-107) mmol/L Carbon Dioxide (22-30) mmol/L Creatinine 0.40 L (0.52-1.04) mg/dL Glucose 163 H (74-99) mg/dL POC Glucose (mg/dL) 114 H 145 H (75-99) mg/dL 05/07/17 05/07/17 05/07/17 Range/Units 02:54 06:07 06:07 PT 12.6 H (9.0-12.0) sec INR 1.3 H (<1.2) Sodium 136 L (137-145) mmol/L Potassium 3.4 L (3.5-5.1) mmol/L Chloride 96 L (98-107) mmol/L Carbon Dioxide 33 H (22-30) mmol/L Creatinine 0.42 L (0.52-1.04) mg/dL Glucose (74-99) mg/dL POC Glucose (mg/dL) 155 H (75-99) mg/dL 05/07/17 Range/Units 09:40 PT (9.0-12.0) sec INR (<1.2) Sodium (137-145) mmol/L Potassium (3.5-5.1) mmol/L Chloride (98-107) mmol/L Carbon Dioxide (22-30) mmol/L Creatinine (0.52-1.04) mg/dL Glucose (74-99) mg/dL POC Glucose (mg/dL) 160 H (75-99) mg/dL Microbiology - Last 24 Hours (Table) 05/02/17 09:47 Blood Culture - Preliminary Blood No Growth after 96 hours Assessment and Plan Plan: Impression Present on admission leaking PEG tube with abdominal wall cellulitis involving the PEG tube site History of neck cancer Episode of persistent chronic atrial fibrillation with a episode of rapid ventricular response Echocardiogram 11/22/2016 left ventricular systolic function low normal with an EF between 50 and 55% with no evidence of pulmonary hypertension Anemia due to malignancy hemoglobin stable Known coronary artery disease Obstructive sleep apnea noncompliant with CPAP therapy Chronic persistent atrial fibrillation Active nicotine dependency Skin cancer involving the neck and the right cheek with resection with throat cancer on chemotherapy currently COPD with no evidence of an exacerbation Hypokalema hypo-magnesium electrolyte imbalance Persistent malfunctioning PEG tube Chest x-ray on May 07 decrease left pleural effusion with atelectasis Status post May 04 EGD with PEG tube placement and G-tube removal for malfunctioning G-tube Moderate protein calorie malnutrition Plan Continue TPN for nutritional support Potassium and magnesium to be replaced Await further recommendations by surgical service Check blood cultures 2 Respiratory treatments as ordered Anticoagulation to be addressed Repeat labs in the morning Decrease the dose of Atarax to 25 4 times a day when necessary PICC line to be inserted for IV access GI prophylaxis Compression stockings to the lower extremities for DVT for prophylaxis Further recommendations pending The above impression and plan of care have been discussed and directed by signing physician. Nancy Nobles nurse practitioner acting as scribe for signing physician.
[2017-05-07] MEDS: MVI, ADULT NO.4 WITH VIT K 10 ML, TRACE (CONC-1ML/DOSE) 1 ML in AMINO ACID 5%-D25W+LYTE... IV SCH ×3 (11:36)
[2017-05-07] MEDS: BUDESONIDE 0.5 MG/2 ML NEBU INHALATION SCH ×2 (11:46→20:03)
[2017-05-07] MEDS ORDERED: LIDOCAINE 2% (PF) 20 MG/ML 10ML SQ ONE (13:16)
--- NOTE | 2017-05-07 13:47 | IR ---
EXAMINATION TYPE: IR cvc insert >=5 years DATE OF EXAM: 05/07/2017 COMPARISON: NONE CLINICAL HISTORY: Failing PEG tube Needs long-term intravenous access for total parenteral nutrition. PROCEDURE: After informed consent, the skin overlying the left basilic vein was localized with ultrasound and no valeri to be compressible and patent. An ultrasound image was obtained and submitted on the patient's c clarke. The overlying skin was prepped and draped and Lidocaine was used for local anesthesia. A skin adriana was made with a scalpel. Access was gained to the vein under ultrasound guidance with a 21 gau ge needle and a 0.018 inch wire was advanced. Access site was dilated with Peel-Away sheath and cath eter tailored to the appropriate length and advanced such that the distal tip is at the cavoatrial ju nction. Spot image was obtained verifying placement. Catheter was fixed to the skin with suture and a sterile dressing was placed following hemostasis. Catheter was aspirated and flushed with saline. Patient was discharged in stable condition without complication. Maximal barrier technique is utili zed. Ultrasound image is documented on the chart. Ultrasound used with sterile technique. Fluoro time and fluoroscopic images submitted to document procedure: 107 intraoperative C-arm images, 0.2 minutes fluoroscopy time IMPRESSION: STATUS POST ULTRASOUND AND FLUOROSCOPIC GUIDED PICC LINE PLACEMENT, READY FOR USE. THIS PROCEDURE WAS PERFORMED BY THE UNDERSIGNED.
--- NOTE | 2017-05-07 14:14 | P.PN ---
Subjective Principal diagnosis: Malfunctioning PEG tube Patient had some additional drainage despite the wound VAC last night. Our ostomy nurse evaluated her this morning. They are trying a ostomy appliance which seems to be working well at this point. There was a small amount of bleeding from the wound and apparently there was some blood also in the PEG tube catheter that appears to have resolved. Pain seems improved presently. Objective - Vital Signs Vital signs: Vital Signs Temp 97.0 F L 05/07/17 04:00 Pulse 104 H 05/07/17 12:01 Resp 18 05/07/17 04:00 BP 130/102 05/07/17 04:00 Pulse Ox 95 05/07/17 04:00 Intake & Output 05/06/17 05/07/17 05/07/17 18:59 06:59 18:59 Intake Total 1451 265 Output Total 2150 900 Balance 1451 -4595 -900 Weight 71.4 kg Intake: IV 440 265 0.9 @ 10mls/hr 80 30 Levofloxacin 500Mg-D5w 100 Pmx 500 mg In Dextrose/ Water 1 100ml.bag @ 100 mls/hr IVPB Q24H [facility] Rx#: [id number] Mvi, Adult No.4 with Vit 360 135 K 10 ml Trace (Conc-1Ml/ Dose) 1 ml In Amino Acid 5%-D25w+Lytes*E* 1,000 ml @ 45 mls/hr IV .[id number] [facility] Rx#:[id number] Intake, IV Titration 1011 Amount Mvi, Adult No.4 with Vit 1011 K 10 ml Trace (Conc-1Ml/ Dose) 1 ml In Amino Acid 5%-D25w+Lytes*E* 1,000 ml @ 45 mls/hr IV .[id number] [facility] Rx#:[id number] Output: Urine 2150 900 Other: Voiding Method Toilet # Voids 2 2 - Exam Abdomen: Soft, nondistended, ostomy appliance intact without significant drainage currently - Labs CBC & Chem 7: 05/07/17 06:07 05/07/17 06:07 Labs: Abnormal Lab Results - Last 24 Hours (Table) 05/06/17 05/06/17 05/07/17 Range/Units 15:03 20:36 02:54 RBC (3.80-5.40) m/uL Hgb (11.4-16.0) gm/dL Hct (34.0-46.0) % RDW (11.5-15.5) % PT (9.0-12.0) sec INR (<1.2) Sodium (137-145) mmol/L Potassium (3.5-5.1) mmol/L Chloride (98-107) mmol/L Carbon Dioxide (22-30) mmol/L Creatinine (0.52-1.04) mg/dL POC Glucose (mg/dL) 114 H 145 H 155 H (75-99) mg/dL 05/07/17 05/07/17 05/07/17 Range/Units 06:07 06:07 06:07 RBC 3.32 L (3.80-5.40) m/uL Hgb 10.0 L (11.4-16.0) gm/dL Hct 31.7 L (34.0-46.0) % RDW 19.8 H (11.5-15.5) % PT 12.6 H (9.0-12.0) sec INR 1.3 H (<1.2) Sodium 136 L (137-145) mmol/L Potassium 3.4 L (3.5-5.1) mmol/L Chloride 96 L (98-107) mmol/L Carbon Dioxide 33 H (22-30) mmol/L Creatinine 0.42 L (0.52-1.04) mg/dL POC Glucose (mg/dL) (75-99) mg/dL 05/07/17 Range/Units 09:40 RBC (3.80-5.40) m/uL Hgb (11.4-16.0) gm/dL Hct (34.0-46.0) % RDW (11.5-15.5) % PT (9.0-12.0) sec INR (<1.2) Sodium (137-145) mmol/L Potassium (3.5-5.1) mmol/L Chloride (98-107) mmol/L Carbon Dioxide (22-30) mmol/L Creatinine (0.52-1.04) mg/dL POC Glucose (mg/dL) 160 H (75-99) mg/dL Microbiology - Last 24 Hours (Table) 05/02/17 09:47 Blood Culture - Preliminary Blood No Growth after 120 hours Assessment and Plan (1) PEG tube malfunction Narrative/Plan: Continue ostomy appliance for dressing management. Continue to hold tube feeds. Status: Acute
--- NOTE | 2017-05-07 15:21 | P.PN ---
Subjective This is a pleasant 72-year-old female with history of chronic persistent atrial fibrillation, coronary artery disease with prior stent placement before it hospital, severe COPD endstage, throat cancer, who presented to the hospital because she noticed increased leakage and drainage from her PEG tube with significant blood present. He states that it has been leaking for quite some time, she was recently in the emergency room with similar complaints. Because of the leakage from the PEG tube, patient has not been getting her oral medications which include the Cardizem and Lopressor, as morning, heart rate went up into the 140s and patient was transferred to the telemetry unit for further evaluation. Patient was started on IV Cardizem drip at 10 mg per hour. Heart rate currently in the low 100s. White blood cell count 3.4, hemoglobin 10.0, platelet count 207. Potassium is 4.1, BUN 25, creatinine 0.4. Troponin 0.014. Let pressure 120/80. At the time of my examination, she denies any palpitations, no overt shortness of breath, she just feels extremely weak and tired. 05/03/2017 Patient did have a new PEG tube placed by Dr. merrill, this continues to be leaking significantly and therefore patient is not taking any oral medications through their at this time. We will continue the IV Cardizem drip which is keeping the patient's heart rate under adequate control, once she is able to take by mouth medications we will resume the Cardizem along with the beta kelly. Echocardiogram with Doppler study was performed which revealed an ejection fraction of 45-50% with severely dilated left atrium. 05/07/2017 Patient seen and examined this morning, heart rate up into the 120s and 130s. Complaining of significant abdominal discomfort. According to the nurse, having issues with drainage from the PEG tube. We will resume the IV Cardizem and hold oral medications until we are sure it is working appropriately. Objective - Vital Signs Vital signs: Vital Signs Temp 98.0 F 05/07/17 12:00 Pulse 104 H 05/07/17 12:01 Resp 18 05/07/17 12:00 BP 91/53 05/07/17 12:00 Pulse Ox 93 L 05/07/17 12:00 Intake & Output 05/06/17 05/07/17 05/07/17 18:59 06:59 18:59 Intake Total 1451 265 Output Total 2150 900 Balance 5201 -4788 -900 Weight 71.4 kg 71.4 kg Intake: IV 440 265 0.9 @ 10mls/hr 80 30 Levofloxacin 500Mg-D5w 100 Pmx 500 mg In Dextrose/ Water 1 100ml.bag @ 100 mls/hr IVPB Q24H [facility] Rx#: [id number] Mvi, Adult No.4 with Vit 360 135 K 10 ml Trace (Conc-1Ml/ Dose) 1 ml In Amino Acid 5%-D25w+Lytes*E* 1,000 ml @ 45 mls/hr IV .[id number] [facility] Rx#:[id number] Intake, IV Titration 1011 Amount Mvi, Adult No.4 with Vit 1011 K 10 ml Trace (Conc-1Ml/ Dose) 1 ml In Amino Acid 5%-D25w+Lytes*E* 1,000 ml @ 45 mls/hr IV .[id number] [facility] Rx#:[id number] Output: Urine 2150 900 Other: Voiding Method Toilet # Voids 2 2 - Exam PHYSICAL EXAMINATION: HEENT: Head is atraumatic, normocephalic. Pupils equal, round. Neck is supple. There is no elevated jugular venous pressure. HEART EXAMINATION: Heart S1 and S2 irregularly irregular CHEST EXAMINATION: Lungs reveal scattered coarse wheezes and rhonchi throughout. ABDOMEN: Soft, nontender. Bowel sounds are heard. No organomegaly noted. PEG tube in place, mild leakage. EXTREMITIES: 1+ peripheral pulses with no evidence of peripheral edema and no calf tenderness noted. NEUROLOGIC patient is awake, alert and oriented -3. - Labs CBC & Chem 7: 05/07/17 06:07 05/07/17 06:07 Labs: Abnormal Lab Results - Last 24 Hours (Table) 05/06/17 05/07/17 05/07/17 Range/Units 20:36 02:54 06:07 RBC (3.80-5.40) m/uL Hgb (11.4-16.0) gm/dL Hct (34.0-46.0) % RDW (11.5-15.5) % PT (9.0-12.0) sec INR (<1.2) Sodium 136 L (137-145) mmol/L Potassium 3.4 L (3.5-5.1) mmol/L Chloride 96 L (98-107) mmol/L Carbon Dioxide 33 H (22-30) mmol/L Creatinine 0.42 L (0.52-1.04) mg/dL POC Glucose (mg/dL) 145 H 155 H (75-99) mg/dL 05/07/17 05/07/17 05/07/17 Range/Units 06:07 06:07 09:40 RBC 3.32 L (3.80-5.40) m/uL Hgb 10.0 L (11.4-16.0) gm/dL Hct 31.7 L (34.0-46.0) % RDW 19.8 H (11.5-15.5) % PT 12.6 H (9.0-12.0) sec INR 1.3 H (<1.2) Sodium (137-145) mmol/L Potassium (3.5-5.1) mmol/L Chloride (98-107) mmol/L Carbon Dioxide (22-30) mmol/L Creatinine (0.52-1.04) mg/dL POC Glucose (mg/dL) 160 H (75-99) mg/dL Microbiology - Last 24 Hours (Table) 05/02/17 09:47 Blood Culture - Preliminary Blood No Growth after 120 hours Assessment and Plan Plan: Assessment and plan #1 PEG tube leakage and bleeding. #2 chronic persistent atrial fibrillation, rapid ventricular response #3 known history of coronary artery disease with prior stent placement at [facility]. #4 hypertension 5 hyperlipidemia #6 end-stage COPD #7 throat cancer Plan At this point, we will resume the Cardizem drip at 10 mg per hour. Once the patient is able to take oral medications we will resume her oral Cardizem as well as oral beta kelly. DNP note has been reviewed, I agree with a documented findings and plan of care. Patient was seen and examined.
[2017-05-07 15:24] LABS: Glucose,Whole Blood 100 mg/dL (75-99)
[2017-05-07] MEDS: MVI, ADULT NO.4 WITH VIT K 10 ML, TRACE (CONC-1ML/DOSE) 1 ML, POTASSIUM CHLORIDE 20 MEQ... IV SCH ×5 (15:45)
[2017-05-07] MEDS: LEVOFLOXACIN 500MG-D5W PMX 500 MG in DEXTROSE/WATER 1 100ML.BAG IVPB SCH (20:37)
[2017-05-07 21:10] LABS: Glucose,Whole Blood 172 mg/dL (75-99)
[2017-05-07] MEDS: ATORVASTATIN 20 MG TAB PEG/G-TUBE SCH (21:24)
[2017-05-08] MEDS: HYDROmorphone 1 MG/ML 1 ML SYRINGE IVP PRN ×10 (00:28→22:36)
[2017-05-08 03:04] LABS: Glucose,Whole Blood 174 mg/dL (75-99)
[2017-05-08] MEDS: IPRATROPIUM-ALBUTEROL 3 ML NEB INHALATION SCH ×6 (03:40→23:37)
[2017-05-08] MEDS: INSULIN LISPRO (humaLOG) 300 UNIT/3 ML VIAL SQ SCH ×4 (03:44→21:50)
[2017-05-08 06:07] LABS: Glucose,Whole Blood 124 mg/dL (75-99)
[2017-05-08 06:58] LABS: Anion Gap 6 mmol/L; Blood Urea Nitrogen 14 mg/dL (7-17); Calcium 8.1 mg/dL (8.4-10.2); Carbon Dioxide 31 mmol/L (22-30); Chloride 98 mmol/L (98-107); Glucose 107 mg/dL (74-99); Magnesium 1.8 mg/dL (1.6-2.3); Non-African American GFR(MDRD) >60 (>60 ml/min/1.73 sqM); Phosphorous 3.5 mg/dL (2.5-4.5); Potassium 3.5 mmol/L (3.5-5.1); Sodium 135 mmol/L (137-145)
[2017-05-08] MEDS: BUDESONIDE 0.5 MG/2 ML NEBU INHALATION SCH ×2 (07:18→19:50)
--- NOTE | 2017-05-08 07:37 | PN ---
DATE OF SERVICE: 05/06/2017 CHIEF COMPLAINT: CA of the neck and necrosis at PEG tube site. HISTORY OF PRESENT ILLNESS: This lady continues to have difficult, but she is having a lot of pain in the site of the PEG tube and she just had a revision 2 days ago. She is also complaining of generalized pruritis which is not managed by Benadryl. PHYSICAL EXAM: She remains pale. She is oriented and alert. Chest is clear and cardiac exam is normal. IMPRESSION: 1. Necrosis around PEG tube. 2. CA of the neck. 3. Pruritis. 4. Increasing pain in the leg tube site. PLAN: 1. Switch from Benadryl to Atarax 25 mg q.i.d. 2. Add Duragesic patch. MTDD
--- NOTE | 2017-05-08 08:15 | PN ---
CHIEF COMPLAINT: Lethargy HISTORY OF PRESENT ILLNESS; This lady has developed lethargy, probably all related to strong antihistamine and analgesia. She is not complaining of pruritis at the present time. PHYSICAL EXAM: She remains pale and skin is dry. Head, ears, eyes, nose, mouth and throat are normal. The chest is clear. The cardiac exam is normal. IMPRESSION: 1. Generalized pruritis. 2. Abdominal pain with soft tissue breakdown around PEG tube. 3. Neoplasm of the neck. PLAN: Cut back on any medications that would be sedating her including antihistamines and analgesics. In the meantime, we are considering what will be necessary regarding PEG tube site. CLAUDIO
[2017-05-08] MEDS: PANTOPRAZOLE 40 MG/10 ML VIAL IVP SCH (08:34)
[2017-05-08] MEDS ORDERED: POTASSIUM CHLORIDE 20 MEQ in WATER FOR INJECTION 1 100ML.BAG IVPB ONE (09:00)
[2017-05-08] MEDS: DILTIAZEM 125 MG in SODIUM CHLORIDE 0.9% 100 ML IV SCH ×2 (09:53→21:50)
--- NOTE | 2017-05-08 10:41 | P.PN ---
Subjective 72-year-old female resting in bed. Being seen on rounds morning. There is no new events. Patient is being followed by surgical service. Currently the wound has an ostomy appliance with no blood noted does appear to be leaking from the site connected to drainage. Patient is resting comfortably in bed. Is denying any chest pain no shortness of breath. Patients being followed by cardiology service for chronic persistent atrial fibrillation with variable ventricular response. Currently on IV Cardizem drip. Per cardiology's recommendations. TPN infusing for nutritional support Objective - Vital Signs Vital signs: Vital Signs Temp 97.0 F L 05/08/17 08:00 Pulse 97 05/08/17 08:00 Resp 17 05/08/17 08:00 BP 126/64 05/08/17 08:00 Pulse Ox 92 L 05/08/17 08:00 Intake & Output 05/07/17 05/08/17 05/08/17 18:59 06:59 18:59 Intake Total 845.833 124.833 Output Total 2700 100 Balance -2700 745.833 124.833 Weight 71.4 kg 68.9 kg Intake: IV 735 0.9 @ 10mls/hr 110 Diltiazem 125 mg In 30 Sodium Chloride 0.9% 100 ml @ 10 MG/HR 10 mls/hr IV .[id number] [facility] Rx#: [id number] Levofloxacin 500Mg-D5w 100 Pmx 500 mg In Dextrose/ Water 1 100ml.bag @ 100 mls/hr IVPB Q24H [facility] Rx#: [id number] Mvi, Adult No.4 with Vit 495 K 10 ml Trace (Conc-1Ml/ Dose) 1 ml In Amino Acid 5%-D25w+Lytes*E* 1,000 ml @ 45 mls/hr IV .[id number] [facility] Rx#:[id number] Intake, IV Titration 110.833 124.833 Amount Diltiazem 125 mg In 110.833 124.833 Sodium Chloride 0.9% 100 ml @ 10 MG/HR 10 mls/hr IV .[id number] [facility] Rx#: [id number] Output: Drainage 100 Abdomen 100 Urine 2700 Other: Voiding Method Toilet # Voids 2 1 1 - Exam Physical exam 72-year-old female arousable to verbal stimuli opens eyes oriented to person place and event resting in bed increasingly more awake and alert this morning Lungs posterior diminished at the bases poor air entry upper airways coarse rhonchi sats on room air 95% occasional nonproductive cough noted Heart S1-S2 audible irregular monitor A. fib variable ventricular response, heart rate in the 90s Abdomen skin excoriation noted around the PEG tube site not distended no stooling urinating no difficulty ostomy appliance at the site connected to drainage ostomy site appliance appears to be leaking around it poor connection Extremities no evidence of edema to the lower extremities - Labs CBC & Chem 7: 05/07/17 06:07 05/08/17 06:19 Labs: Abnormal Lab Results - Last 24 Hours (Table) 05/07/17 05/07/17 05/08/17 Range/Units 15:12 21:09 03:03 Sodium (137-145) mmol/L Carbon Dioxide (22-30) mmol/L Creatinine (0.52-1.04) mg/dL Glucose (74-99) mg/dL POC Glucose (mg/dL) 100 H 172 H 174 H (75-99) mg/dL Calcium (8.4-10.2) mg/dL 05/08/17 05/08/17 Range/Units 06:06 06:19 Sodium 135 L (137-145) mmol/L Carbon Dioxide 31 H (22-30) mmol/L Creatinine 0.41 L (0.52-1.04) mg/dL Glucose 107 H (74-99) mg/dL POC Glucose (mg/dL) 124 H (75-99) mg/dL Calcium 8.1 L (8.4-10.2) mg/dL Microbiology - Last 24 Hours (Table) 05/02/17 09:47 Blood Culture - Preliminary Blood No Growth after 120 hours Assessment and Plan Plan: Impression Present on admission leaking PEG tube with abdominal wall cellulitis involving the PEG tube site History of neck cancer Episode of persistent chronic atrial fibrillation with a episode of rapid ventricular response Echocardiogram 11/22/2016 left ventricular systolic function low normal with an EF between 50 and 55% with no evidence of pulmonary hypertension Anemia due to malignancy hemoglobin stable Known coronary artery disease Obstructive sleep apnea noncompliant with CPAP therapy Chronic persistent atrial fibrillation with variable rates Active nicotine dependency Skin cancer involving the neck and the right cheek with resection with throat cancer on chemotherapy currently COPD with no evidence of an exacerbation Hypokalema hypo-magnesium electrolyte imbalance been replaced and corrected Persistent malfunctioning PEG tube Chest x-ray on May 07 decrease left pleural effusion with atelectasis Status post May 04 EGD with PEG tube placement and G-tube removal for malfunctioning G-tube Moderate protein calorie malnutrition Plan Continue TPN for nutritional support Potassium and magnesium to be replaced Await further recommendations by surgical service Check blood cultures 2 Respiratory treatments as ordered Anticoagulation to be addressed Repeat labs in the morning Decrease the dose of Atarax to 25 4 times a day when necessary PICC line inserted for IV access GI prophylaxis Compression stockings to the lower extremities for DVT for prophylaxis Further recommendations pending The above impression and plan of care have been discussed and directed by signing physician. Nancy Nobles nurse practitioner acting as scribe for signing physician.
[2017-05-08 10:44] LABS: Glucose,Whole Blood 177 mg/dL (75-99)
--- NOTE | 2017-05-08 14:16 | P.PN ---
Subjective This is a pleasant 72-year-old female with history of chronic persistent atrial fibrillation, coronary artery disease with prior stent placement before it hospital, severe COPD endstage, throat cancer, who presented to the hospital because she noticed increased leakage and drainage from her PEG tube with significant blood present. He states that it has been leaking for quite some time, she was recently in the emergency room with similar complaints. Because of the leakage from the PEG tube, patient has not been getting her oral medications which include the Cardizem and Lopressor, as morning, heart rate went up into the 140s and patient was transferred to the telemetry unit for further evaluation. Patient was started on IV Cardizem drip at 10 mg per hour. Heart rate currently in the low 100s. White blood cell count 3.4, hemoglobin 10.0, platelet count 207. Potassium is 4.1, BUN 25, creatinine 0.4. Troponin 0.014. Let pressure 120/80. At the time of my examination, she denies any palpitations, no overt shortness of breath, she just feels extremely weak and tired. 05/03/2017 Patient did have a new PEG tube placed by Dr. merrill, this continues to be leaking significantly and therefore patient is not taking any oral medications through their at this time. We will continue the IV Cardizem drip which is keeping the patient's heart rate under adequate control, once she is able to take by mouth medications we will resume the Cardizem along with the beta kelly. Echocardiogram with Doppler study was performed which revealed an ejection fraction of 45-50% with severely dilated left atrium. 05/07/2017 Patient seen and examined this morning, heart rate up into the 120s and 130s. Complaining of significant abdominal discomfort. According to the nurse, having issues with drainage from the PEG tube. We will resume the IV Cardizem and hold oral medications until we are sure it is working appropriately. 05/08/2017 Patient continues to be in atrial fibrillation, heart rate today in the 90s. She is currently on IV Cardizem drip. She is still not taking oral medications through the PEG tube. Objective - Vital Signs Vital signs: Vital Signs Temp 96.2 F L 05/08/17 11:47 Pulse 100 05/08/17 12:31 Resp 18 05/08/17 11:47 BP 101/66 05/08/17 11:47 Pulse Ox 92 L 05/08/17 11:47 Intake & Output 05/07/17 05/08/17 05/08/17 18:59 06:59 18:59 Intake Total 845.833 404.833 Output Total 2700 100 Balance -2700 745.833 404.833 Weight 71.4 kg 68.9 kg Intake: IV 735 0.9 @ 10mls/hr 110 Diltiazem 125 mg In 30 Sodium Chloride 0.9% 100 ml @ 10 MG/HR 10 mls/hr IV .[id number] [facility] Rx#: [id number] Levofloxacin 500Mg-D5w 100 Pmx 500 mg In Dextrose/ Water 1 100ml.bag @ 100 mls/hr IVPB Q24H [facility] Rx#: [id number] Mvi, Adult No.4 with Vit 495 K 10 ml Trace (Conc-1Ml/ Dose) 1 ml In Amino Acid 5%-D25w+Lytes*E* 1,000 ml @ 45 mls/hr IV .[id number] [facility] Rx#:[id number] Intake, IV Titration 110.833 404.833 Amount Diltiazem 125 mg In 110.833 124.833 Sodium Chloride 0.9% 100 ml @ 10 MG/HR 10 mls/hr IV .[id number] [facility] Rx#: [id number] Mvi, Adult No.4 with Vit 230 K 10 ml Trace (Conc-1Ml/ Dose) 1 ml Potassium Chloride 20 meq Magnesium Sulfate 8 meq In Amino Acid 5%-D25w+Lytes*E* 1, 000 ml @ 45 mls/hr IV . [id number] [facility] Rx#:[id number] Potassium Chloride 20 meq 50 In Water For Injection 1 100ml.bag @ 50 mls/hr IVPB ONCE ONE Rx#: [id number] Output: Drainage 100 Abdomen 100 Urine 2700 Other: Voiding Method Toilet # Voids 2 1 0 - Exam PHYSICAL EXAMINATION: HEENT: Head is atraumatic, normocephalic. Pupils equal, round. Neck is supple. There is no elevated jugular venous pressure. HEART EXAMINATION: Heart S1 and S2 irregularly irregular CHEST EXAMINATION: Lungs reveal scattered coarse wheezes and rhonchi throughout. ABDOMEN: Soft, nontender. Bowel sounds are heard. No organomegaly noted. PEG tube in place, mild leakage. EXTREMITIES: 1+ peripheral pulses with no evidence of peripheral edema and no calf tenderness noted. NEUROLOGIC patient is awake, alert and oriented -3. - Labs CBC & Chem 7: 05/07/17 06:07 05/08/17 06:19 Labs: Abnormal Lab Results - Last 24 Hours (Table) 05/07/17 05/07/17 05/08/17 Range/Units 15:12 21:09 03:03 Sodium (137-145) mmol/L Carbon Dioxide (22-30) mmol/L Creatinine (0.52-1.04) mg/dL Glucose (74-99) mg/dL POC Glucose (mg/dL) 100 H 172 H 174 H (75-99) mg/dL Calcium (8.4-10.2) mg/dL 05/08/17 05/08/17 05/08/17 Range/Units 06:06 06:19 10:23 Sodium 135 L (137-145) mmol/L Carbon Dioxide 31 H (22-30) mmol/L Creatinine 0.41 L (0.52-1.04) mg/dL Glucose 107 H (74-99) mg/dL POC Glucose (mg/dL) 124 H 177 H (75-99) mg/dL Calcium 8.1 L (8.4-10.2) mg/dL Microbiology - Last 24 Hours (Table) 05/02/17 09:47 Blood Culture - Final Blood No Growth after 144 hours Assessment and Plan Plan: Assessment and plan #1 PEG tube leakage and bleeding. #2 chronic persistent atrial fibrillation, rapid ventricular response #3 known history of coronary artery disease with prior stent placement at [facility]. #4 hypertension 5 hyperlipidemia #6 end-stage COPD #7 throat cancer Plan At this point, we will continue the Cardizem drip at 10 mg per hour. Once the patient is able to take oral medications we will resume her oral Cardizem as well as oral beta kelly. DNP note has been reviewed, I agree with a documented findings and plan of care. Patient was seen and examined.
[2017-05-08] MEDS: MVI, ADULT NO.4 WITH VIT K 10 ML, TRACE (CONC-1ML/DOSE) 1 ML, POTASSIUM CHLORIDE 20 MEQ... IV SCH ×5 (15:31)
[2017-05-08 15:39] LABS: Glucose,Whole Blood 149 mg/dL (75-99)
--- NOTE | 2017-05-08 16:53 | P.PN ---
Subjective Principal diagnosis: Malfunctioning PEG tube Patient seemed to do well up until this morning when she began experiencing some drainage from around the ostomy appliance. Still having some spastic pain at times. No further bleeding. Some bilious fluid within her PEG tube. Today she is complaining of some increased shortness of breath. Objective - Vital Signs Vital signs: Vital Signs Temp 97.7 F 05/08/17 15:50 Pulse 100 05/08/17 16:01 Resp 18 05/08/17 15:50 BP 98/51 05/08/17 15:50 Pulse Ox 95 05/08/17 15:50 Intake & Output 05/07/17 05/08/17 05/08/17 18:59 06:59 18:59 Intake Total 513.778 0339.833 Output Total 2700 100 Balance -2700 401.345 5045.833 Weight 71.4 kg 68.9 kg Intake: IV 735 0.9 @ 10mls/hr 110 Diltiazem 125 mg In 30 Sodium Chloride 0.9% 100 ml @ 10 MG/HR 10 mls/hr IV .[id number] [facility] Rx#: [id number] Levofloxacin 500Mg-D5w 100 Pmx 500 mg In Dextrose/ Water 1 100ml.bag @ 100 mls/hr IVPB Q24H [facility] Rx#: [id number] Mvi, Adult No.4 with Vit 495 K 10 ml Trace (Conc-1Ml/ Dose) 1 ml In Amino Acid 5%-D25w+Lytes*E* 1,000 ml @ 45 mls/hr IV .[id number] [facility] Rx#:[id number] Intake, IV Titration 043.477 8370.833 Amount Diltiazem 125 mg In 110.833 124.833 Sodium Chloride 0.9% 100 ml @ 10 MG/HR 10 mls/hr IV .[id number] [facility] Rx#: [id number] Mvi, Adult No.4 with Vit 1253 K 10 ml Trace (Conc-1Ml/ Dose) 1 ml Potassium Chloride 20 meq Magnesium Sulfate 8 meq In Amino Acid 5%-D25w+Lytes*E* 1, 000 ml @ 45 mls/hr IV . [id number] [facility] Rx#:[id number] Potassium Chloride 20 meq 50 In Water For Injection 1 100ml.bag @ 50 mls/hr IVPB ONCE ONE Rx#: [id number] Output: Drainage 100 Abdomen 100 Urine 2700 Other: Voiding Method Toilet Toilet # Voids 2 1 0 - Exam Abdomen: Soft,, nondistended, ostomy appliance intact, induration of the skin slightly improved - Labs CBC & Chem 7: 05/07/17 06:07 05/08/17 06:19 Labs: Abnormal Lab Results - Last 24 Hours (Table) 05/07/17 05/08/17 05/08/17 Range/Units 21:09 03:03 06:06 Sodium (137-145) mmol/L Carbon Dioxide (22-30) mmol/L Creatinine (0.52-1.04) mg/dL Glucose (74-99) mg/dL POC Glucose (mg/dL) 172 H 174 H 124 H (75-99) mg/dL Calcium (8.4-10.2) mg/dL 05/08/17 05/08/17 05/08/17 Range/Units 06:19 10:23 15:18 Sodium 135 L (137-145) mmol/L Carbon Dioxide 31 H (22-30) mmol/L Creatinine 0.41 L (0.52-1.04) mg/dL Glucose 107 H (74-99) mg/dL POC Glucose (mg/dL) 177 H 149 H (75-99) mg/dL Calcium 8.1 L (8.4-10.2) mg/dL Microbiology - Last 24 Hours (Table) 05/02/17 09:47 Blood Culture - Final Blood No Growth after 144 hours Assessment and Plan (1) PEG tube malfunction Narrative/Plan: Patient with increased shortness of breath. We'll consult pulmonary at this point. Will discuss her wound management further with wound care in a.m. Continue TPN. Status: Acute
[2017-05-08] MEDS: MAGNESIUM SULFATE-D5W PMX 1 GM in DEXTROSE/WATER 1 100ML.BAG IVPB SCH ×2 (17:09→18:32)
[2017-05-08] MEDS: LEVOFLOXACIN 500MG-D5W PMX 500 MG in DEXTROSE/WATER 1 100ML.BAG IVPB SCH (20:36)
[2017-05-08 21:14] LABS: Glucose,Whole Blood 168 mg/dL (75-99)
[2017-05-08] MEDS: ATORVASTATIN 20 MG TAB PEG/G-TUBE SCH (21:50)
[2017-05-09] MEDS: HYDROmorphone 1 MG/ML 1 ML SYRINGE IVP PRN ×10 (00:31→23:41)
[2017-05-09] MEDS: IPRATROPIUM-ALBUTEROL 3 ML NEB INHALATION SCH ×5 (03:31→20:40)
[2017-05-09 03:32] LABS: Glucose,Whole Blood 146 mg/dL (75-99)
[2017-05-09] MEDS: INSULIN LISPRO (humaLOG) 300 UNIT/3 ML VIAL SQ SCH ×4 (04:04→23:42)
[2017-05-09 05:43] LABS: Anisocytosis Moderate; Basophils % (A) 0 %; CH 30.5; CHCM 31.7; Eosinophils # (A) 0.3 k/uL (0-0.7); Eosinophils % (A) 4 %; HCT 27.8 % (34.0-46.0); HDW 2.95; HGB 8.6 gm/dL (11.4-16.0); Hypochromasia Slight; Luc # (Auto) 0.19; Luc % (Auto) 3; Lymphocytes # (A) 1.2 k/uL (1.0-4.8); Lymphocytes % (A) 18 %; MCHC 31.1 g/dL (31.0-37.0); MCV 96.6 fL (80.0-100.0); Macrocytosis Slight; Mean Platelet Volume 7.6; Monocytes # (A) 0.5 k/uL (0-1.0); Monocytes % (A) 7 %; Neutrophils # (A) 4.7 k/uL (1.3-7.7); Neutrophils % (A) 68 %; RBC 2.87 m/uL (3.80-5.40); RDW 20.5 % (11.5-15.5); WBC (Perox) 7.49
[2017-05-09 06:04] LABS: Anion Gap 5 mmol/L; Blood Urea Nitrogen 13 mg/dL (7-17); Calcium 7.9 mg/dL (8.4-10.2); Carbon Dioxide 30 mmol/L (22-30); Chloride 99 mmol/L (98-107); Glucose 158 mg/dL (74-99); Magnesium 1.8 mg/dL (1.6-2.3); Non-African American GFR(MDRD) >60 (>60 ml/min/1.73 sqM); Phosphorous 3.4 mg/dL (2.5-4.5); Potassium 3.9 mmol/L (3.5-5.1); Sodium 134 mmol/L (137-145)
[2017-05-09] MEDS: BUDESONIDE 0.5 MG/2 ML NEBU INHALATION SCH ×2 (08:20→20:40)
[2017-05-09] MEDS: PANTOPRAZOLE 40 MG/10 ML VIAL IVP SCH (08:29)
[2017-05-09 10:23] LABS: Glucose,Whole Blood 161 mg/dL (75-99)
[2017-05-09] MEDS: DILTIAZEM 125 MG in SODIUM CHLORIDE 0.9% 100 ML IV SCH ×3 (10:30→20:44)
--- NOTE | 2017-05-09 11:02 | P.PN ---
Subjective 72-year-old female being seen this morning currently is sitting up in a. Eyes closed patient appears to be sleeping does awaken with verbal stimuli. Patient states "aches all over. Currently patients being followed by surgery and cardiology service. The PEG tube continues to appear to be leaking around it connected to drainage. Is no bleeding around the PEG tube. Additionally patient has an ostomy appliance in place around the site which is red positive tenderness. All meds have been held PEG tube currently is not being used tube feeds are on hold. Patient is receiving TPN for nutritional support. Currently on room air sats are documented 94%. IV Cardizem drip per cardiology patient did have a run of a 17 beat nonsustained V. tach this morning currently atrial fibrillation noted mag 1.8 potassium 3.9 Objective - Vital Signs Vital signs: Vital Signs Temp 96.6 F L 05/09/17 08:00 Pulse 112 H 05/09/17 08:37 Resp 18 05/09/17 08:22 BP 105/61 05/09/17 08:00 Pulse Ox 94 L 05/09/17 08:00 Intake & Output 05/08/17 05/09/17 05/09/17 18:59 06:59 18:59 Intake Total 1427.833 279.5 165.333 Output Total 300 Balance 1127.833 279.5 165.333 Weight 71.4 kg Intake: IV 160 40 0.9 @ 10mls/hr 60 40 Levofloxacin 500Mg-D5w 100 Pmx 500 mg In Dextrose/ Water 1 100ml.bag @ 100 mls/hr IVPB Q24H [facility] Rx#: [id number] Intake, IV Titration 1427.833 119.5 125.333 Amount Diltiazem 125 mg In 124.833 119.5 125.333 Sodium Chloride 0.9% 100 ml @ 10 MG/HR 10 mls/hr IV .[id number] [facility] Rx#: [id number] Mvi, Adult No.4 with Vit 1253 K 10 ml Trace (Conc-1Ml/ Dose) 1 ml Potassium Chloride 20 meq Magnesium Sulfate 8 meq In Amino Acid 5%-D25w+Lytes*E* 1, 000 ml @ 45 mls/hr IV . [id number] [facility] Rx#:[id number] Potassium Chloride 20 meq 50 In Water For Injection 1 100ml.bag @ 50 mls/hr IVPB ONCE ONE Rx#: [id number] Output: Gastric Drainage 300 Other: Voiding Method Toilet Toilet # Voids 0 1 0 - Exam Physical exam 72-year-old female sitting up in a chair this morning pleasant cooperative oriented to person place event chief complaint "hurt all over tired out Lungs diminished at the bases upper airways coarse rhonchi no cough noted no wheezing noted currently on room air sats are 91 Heart S1-S2 audible irregular monitor atrial fibrillation did note patient did have a 17 beat nonsustained V. tach this morning asymptomatic Abdomen PEG tube connected to drainage ostomy appliance to site cellulitis to the abdominal wall no stool reportedly urinating with no difficulty no bowel movements TPN in progress Extremities no edema noted - Labs CBC & Chem 7: 05/10/17 06:50 05/10/17 06:50 Labs: Abnormal Lab Results - Last 24 Hours (Table) 05/08/17 05/08/17 05/09/17 Range/Units 15:18 21:12 03:29 RBC (3.80-5.40) m/uL Hgb (11.4-16.0) gm/dL Hct (34.0-46.0) % RDW (11.5-15.5) % Sodium (137-145) mmol/L Creatinine (0.52-1.04) mg/dL Glucose (74-99) mg/dL POC Glucose (mg/dL) 149 H 168 H 146 H (75-99) mg/dL Calcium (8.4-10.2) mg/dL 05/09/17 05/09/17 05/09/17 Range/Units 05:34 05:34 10:03 RBC 2.87 L (3.80-5.40) m/uL Hgb 8.6 L (11.4-16.0) gm/dL Hct 27.8 L (34.0-46.0) % RDW 20.5 H (11.5-15.5) % Sodium 134 L (137-145) mmol/L Creatinine 0.41 L (0.52-1.04) mg/dL Glucose 158 H (74-99) mg/dL POC Glucose (mg/dL) 161 H (75-99) mg/dL Calcium 7.9 L (8.4-10.2) mg/dL Microbiology - Last 24 Hours (Table) 05/02/17 09:47 Blood Culture - Final Blood No Growth after 144 hours Assessment and Plan Plan: Impression Present on admission leaking PEG tube with abdominal wall cellulitis involving the PEG tube site History of neck cancer Episode of persistent chronic atrial fibrillation with a episode of rapid ventricular response Echocardiogram 11/22/2016 left ventricular systolic function low normal with an EF between 50 and 55% with no evidence of pulmonary hypertension Anemia due to malignancy hemoglobin stable Known coronary artery disease Obstructive sleep apnea noncompliant with CPAP therapy Chronic persistent atrial fibrillation with variable rates Active nicotine dependency Skin cancer involving the neck and the right cheek with resection with throat cancer on chemotherapy currently COPD with no evidence of an exacerbation Hypokalema hypo-magnesium electrolyte imbalance been replaced and corrected Persistent malfunctioning PEG tube Chest x-ray on May 07 decrease left pleural effusion with atelectasis Status post May 04 EGD with PEG tube placement and G-tube removal for malfunctioning G-tube Moderate protein calorie malnutrition Cardiac arrhythmia 17 beat nonsustained V. tach episode on May 09 Plan Continue TPN for nutritional support Potassium and magnesium to be replaced Await further recommendations by surgical service Check blood cultures 2 Respiratory treatments as ordered Anticoagulation to be addressed Repeat labs in the morning Decrease the dose of Atarax to 25 4 times a day when necessary PICC line inserted for IV access GI prophylaxis Compression stockings to the lower extremities for DVT for prophylaxis Further recommendations pending CODE STATUS to be addressed by patient's [id number] currently a full code The above impression and plan of care have been discussed and directed by signing physician. Nancy Nobles nurse practitioner acting as scribe for signing physician.
--- NOTE | 2017-05-09 12:59 | P.PN ---
Subjective This is a pleasant 72-year-old female with history of chronic persistent atrial fibrillation, coronary artery disease with prior stent placement before it hospital, severe COPD endstage, throat cancer, who presented to the hospital because she noticed increased leakage and drainage from her PEG tube with significant blood present. He states that it has been leaking for quite some time, she was recently in the emergency room with similar complaints. Because of the leakage from the PEG tube, patient has not been getting her oral medications which include the Cardizem and Lopressor, as morning, heart rate went up into the 140s and patient was transferred to the telemetry unit for further evaluation. Patient was started on IV Cardizem drip at 10 mg per hour. Heart rate currently in the low 100s. White blood cell count 3.4, hemoglobin 10.0, platelet count 207. Potassium is 4.1, BUN 25, creatinine 0.4. Troponin 0.014. Let pressure 120/80. At the time of my examination, she denies any palpitations, no overt shortness of breath, she just feels extremely weak and tired. 05/03/2017 Patient did have a new PEG tube placed by Dr. merrill, this continues to be leaking significantly and therefore patient is not taking any oral medications through their at this time. We will continue the IV Cardizem drip which is keeping the patient's heart rate under adequate control, once she is able to take by mouth medications we will resume the Cardizem along with the beta kelly. Echocardiogram with Doppler study was performed which revealed an ejection fraction of 45-50% with severely dilated left atrium. 05/07/2017 Patient seen and examined this morning, heart rate up into the 120s and 130s. Complaining of significant abdominal discomfort. According to the nurse, having issues with drainage from the PEG tube. We will resume the IV Cardizem and hold oral medications until we are sure it is working appropriately. 05/08/2017Patient continues to be in atrial fibrillation, heart rate today in the 90s. She is currently on IV Cardizem drip. She is still not taking oral medications through the PEG tube. 05/09/2017 Patient continues to be in atrial fibrillation, heart rate today in the 90s. She is currently on IV Cardizem drip. She is still not taking oral medications through the PEG tube. Objective - Vital Signs Vital signs: Vital Signs Temp 97.6 F 05/09/17 11:57 Pulse 114 H 05/09/17 12:23 Resp 20 05/09/17 12:08 BP 124/82 05/09/17 11:57 Pulse Ox 98 05/09/17 11:57 Intake & Output 05/08/17 05/09/17 05/09/17 18:59 06:59 18:59 Intake Total 1427.833 279.5 165.333 Output Total 300 Balance 1127.833 279.5 165.333 Weight 71.4 kg Intake: IV 160 40 0.9 @ 10mls/hr 60 40 Levofloxacin 500Mg-D5w 100 Pmx 500 mg In Dextrose/ Water 1 100ml.bag @ 100 mls/hr IVPB Q24H [facility] Rx#: [id number] Intake, IV Titration 1427.833 119.5 125.333 Amount Diltiazem 125 mg In 124.833 119.5 125.333 Sodium Chloride 0.9% 100 ml @ 10 MG/HR 10 mls/hr IV .[id number] [facility] Rx#: [id number] Mvi, Adult No.4 with Vit 1253 K 10 ml Trace (Conc-1Ml/ Dose) 1 ml Potassium Chloride 20 meq Magnesium Sulfate 8 meq In Amino Acid 5%-D25w+Lytes*E* 1, 000 ml @ 45 mls/hr IV . [id number] [facility] Rx#:[id number] Potassium Chloride 20 meq 50 In Water For Injection 1 100ml.bag @ 50 mls/hr IVPB ONCE ONE Rx#: [id number] Output: Gastric Drainage 300 Other: Voiding Method Toilet Toilet # Voids 0 1 0 - Exam PHYSICAL EXAMINATION: HEENT: Head is atraumatic, normocephalic. Pupils equal, round. Neck is supple. There is no elevated jugular venous pressure. HEART EXAMINATION: Heart S1 and S2 irregularly irregular CHEST EXAMINATION: Lungs reveal scattered coarse wheezes and rhonchi throughout. ABDOMEN: Soft, nontender. Bowel sounds are heard. No organomegaly noted. PEG tube in place, mild leakage. EXTREMITIES: 1+ peripheral pulses with no evidence of peripheral edema and no calf tenderness noted. NEUROLOGIC patient is awake, alert and oriented -3. - Labs CBC & Chem 7: 05/09/17 05:34 05/09/17 05:34 Labs: Abnormal Lab Results - Last 24 Hours (Table) 05/08/17 05/08/17 05/09/17 Range/Units 15:18 21:12 03:29 RBC (3.80-5.40) m/uL Hgb (11.4-16.0) gm/dL Hct (34.0-46.0) % RDW (11.5-15.5) % Sodium (137-145) mmol/L Creatinine (0.52-1.04) mg/dL Glucose (74-99) mg/dL POC Glucose (mg/dL) 149 H 168 H 146 H (75-99) mg/dL Calcium (8.4-10.2) mg/dL 05/09/17 05/09/17 05/09/17 Range/Units 05:34 05:34 10:03 RBC 2.87 L (3.80-5.40) m/uL Hgb 8.6 L (11.4-16.0) gm/dL Hct 27.8 L (34.0-46.0) % RDW 20.5 H (11.5-15.5) % Sodium 134 L (137-145) mmol/L Creatinine 0.41 L (0.52-1.04) mg/dL Glucose 158 H (74-99) mg/dL POC Glucose (mg/dL) 161 H (75-99) mg/dL Calcium 7.9 L (8.4-10.2) mg/dL Microbiology - Last 24 Hours (Table) 05/02/17 09:47 Blood Culture - Final Blood No Growth after 144 hours Assessment and Plan Plan: Assessment and plan #1 PEG tube leakage and bleeding. #2 chronic persistent atrial fibrillation, rapid ventricular response #3 known history of coronary artery disease with prior stent placement at [facility]. #4 hypertension 5 hyperlipidemia #6 end-stage COPD #7 throat cancer Plan At this point, we will continue the Cardizem drip at 10 mg per hour. Once the patient is able to take oral medications we will resume her oral Cardizem as well as oral beta kelly. Discussion is also being made regarding possible hospice. We will follow this patient with you now on an as-needed basis only, least on hesitate to call with any questions. DNP note has been reviewed, I agree with a documented findings and plan of care. Patient was seen and examined.
[2017-05-09] MEDS: MVI, ADULT NO.4 WITH VIT K 10 ML, TRACE (CONC-1ML/DOSE) 1 ML, POTASSIUM CHLORIDE 20 MEQ... IV SCH ×5 (14:32)
[2017-05-09 15:42] LABS: Glucose,Whole Blood 140 mg/dL (75-99)
--- NOTE | 2017-05-09 18:58 | PN ---
CHIEF COMPLAINT: Wound infection and necrosis around the PEG tube site. Carcinoma of the neck. HISTORY OF PRESENT ILLNESS: This lady seems stable and the pain seems to be a little bit better controlled. She is on a Cardizem drip for her Afib with rapid ventricular response today. We are waiting to hear if general surgery plans anything further. PHYSICAL EXAMINATION: She remains pale. Chest is fairly clear. Cardiac exam is normal. Abdomen has extensive dressing with a wound VAC. IMPRESSION: 1. Infection necrosis around PEG tube site. 2. Carcinoma of the neck. PLAN: Await further recommendations from surgery as to what will be done next. MTDD
--- NOTE | 2017-05-09 19:18 | PN ---
DATE OF SERVICE: 05/09/17 CHIEF COMPLAINT: Necrosis infection around the PEG tube site. HISTORY OF PRESENT ILLNESS: This lady is not doing a great deal better. The pain is under better control, ( ). PHYSICAL EXAMINATION: She remains pale. Cardiac exam is normal. Chest is clear. IMPRESSION: 1. Infection and necrosis around the PEG tube site. 2. Atrial fibrillation. 3. Cervical neoplasm. PLAN: The case was discussed with surgery. There is a general agreement that we are on moving forward with the patient and there is concern this PEG site may continue to be a problem that it was decided that she could be best cared for by sending her to a tertiary center. She has been going to [facility] and we will plan on transferring her there today if a bed is available. CLAUDIO
[2017-05-09 20:24] LABS: Glucose,Whole Blood 151 mg/dL (75-99)
[2017-05-09] MEDS: LEVOFLOXACIN 500MG-D5W PMX 500 MG in DEXTROSE/WATER 1 100ML.BAG IVPB SCH (20:44)
--- NOTE | 2017-05-09 22:38 | P.PN ---
Subjective Principal diagnosis: Malfunctioning PEG tube Patient has had decreased drainage. Pain seems to be improved. Family is considering home with hospice care. Shortness of breath is improved today. Objective - Vital Signs Vital signs: Vital Signs Temp 97.6 F 05/09/17 11:57 Pulse 84 05/09/17 21:01 Resp 18 05/09/17 16:00 BP 110/58 05/09/17 16:00 Pulse Ox 92 L 05/09/17 16:45 Intake & Output 05/09/17 05/09/17 05/10/17 06:59 18:59 06:59 Intake Total 279.5 1188.333 102 Balance 279.5 1188.333 102 Weight 71.4 kg 71.4 kg Intake: IV 160 40 0.9 @ 10mls/hr 60 40 Levofloxacin 500Mg-D5w 100 Pmx 500 mg In Dextrose/ Water 1 100ml.bag @ 100 mls/hr IVPB Q24H [facility] Rx#: [id number] Intake, IV Titration 119.5 1148.333 102 Amount Diltiazem 125 mg In 119.5 125.333 102 Sodium Chloride 0.9% 100 ml @ 10 MG/HR 10 mls/hr IV .[id number] [facility] Rx#: [id number] Mvi, Adult No.4 with Vit 1023 K 10 ml Trace (Conc-1Ml/ Dose) 1 ml Potassium Chloride 20 meq Magnesium Sulfate 8 meq In Amino Acid 5%-D25w+Lytes*E* 1, 000 ml @ 45 mls/hr IV . [id number] [facility] Rx#:[id number] Other: Voiding Method Toilet Toilet # Voids 1 1 - Exam Abdomen: Soft, mild tenderness, the ostomy applias approximately 3-4 cm lateral from the wound,, wound much smaller in size without active drainage, wound evaluated with a cotton swab and no penetration through the Fascia noted.. - Labs CBC & Chem 7: 05/09/17 05:34 05/09/17 05:34 Labs: Abnormal Lab Results - Last 24 Hours (Table) 05/09/17 05/09/17 05/09/17 Range/Units 03:29 05:34 05:34 RBC 2.87 L (3.80-5.40) m/uL Hgb 8.6 L (11.4-16.0) gm/dL Hct 27.8 L (34.0-46.0) % RDW 20.5 H (11.5-15.5) % Sodium 134 L (137-145) mmol/L Creatinine 0.41 L (0.52-1.04) mg/dL Glucose 158 H (74-99) mg/dL POC Glucose (mg/dL) 146 H (75-99) mg/dL Calcium 7.9 L (8.4-10.2) mg/dL 05/09/17 05/09/17 05/09/17 Range/Units 10:03 15:40 20:22 RBC (3.80-5.40) m/uL Hgb (11.4-16.0) gm/dL Hct (34.0-46.0) % RDW (11.5-15.5) % Sodium (137-145) mmol/L Creatinine (0.52-1.04) mg/dL Glucose (74-99) mg/dL POC Glucose (mg/dL) 161 H 140 H 151 H (75-99) mg/dL Calcium (8.4-10.2) mg/dL Assessment and Plan (1) PEG tube malfunction Narrative/Plan: Wound was packed with gauze. Silvadene appled around the wound site. Continue Holding tube feeds. Status: Acute
[2017-05-09] MEDS: ATORVASTATIN 20 MG TAB PEG/G-TUBE SCH (23:42)
[2017-05-10] MEDS: IPRATROPIUM-ALBUTEROL 3 ML NEB INHALATION SCH ×7 (00:07→22:46)
[2017-05-10] MEDS: HYDROmorphone 1 MG/ML 1 ML SYRINGE IVP PRN ×6 (02:26→17:05)
[2017-05-10 05:48] LABS: Glucose,Whole Blood 166 mg/dL (75-99)
[2017-05-10] MEDS: INSULIN LISPRO (humaLOG) 300 UNIT/3 ML VIAL SQ SCH ×4 (06:58→22:25)
[2017-05-10 07:09] LABS: Anisocytosis Slight; Basophils % (A) 1 %; CH 29.7; CHCM 31.4; Eosinophils # (A) 0.4 k/uL (0-0.7); Eosinophils % (A) 5 %; HCT 27.6 % (34.0-46.0); HDW 3.02; HGB 8.7 gm/dL (11.4-16.0); Hypochromasia Slight; Luc # (Auto) 0.22; Luc % (Auto) 3; Lymphocytes # (A) 1.2 k/uL (1.0-4.8); Lymphocytes % (A) 15 %; MCHC 31.6 g/dL (31.0-37.0); MCV 94.9 fL (80.0-100.0); Macrocytosis Slight; Mean Platelet Volume 6.8; Monocytes # (A) 0.6 k/uL (0-1.0); Monocytes % (A) 7 %; Neutrophils # (A) 5.3 k/uL (1.3-7.7); Neutrophils % (A) 69 %; RBC 2.91 m/uL (3.80-5.40); RDW 19.5 % (11.5-15.5); WBC 7.7 k/uL (3.8-10.6); WBC (Perox) 8.17
[2017-05-10 07:32] LABS: Anion Gap 5 mmol/L; Blood Urea Nitrogen 13 mg/dL (7-17); Calcium 8.1 mg/dL (8.4-10.2); Carbon Dioxide 29 mmol/L (22-30); Chloride 101 mmol/L (98-107); Glucose 137 mg/dL (74-99); Magnesium 1.7 mg/dL (1.6-2.3); Non-African American GFR(MDRD) >60 (>60 ml/min/1.73 sqM); Phosphorous 3.7 mg/dL (2.5-4.5); Potassium 4.3 mmol/L (3.5-5.1); Sodium 135 mmol/L (137-145)
[2017-05-10] MEDS: BUDESONIDE 0.5 MG/2 ML NEBU INHALATION SCH ×2 (07:39→19:33)
[2017-05-10] MEDS: DILTIAZEM 125 MG in SODIUM CHLORIDE 0.9% 100 ML IV SCH ×2 (09:50→22:37)
[2017-05-10] MEDS: PANTOPRAZOLE 40 MG/10 ML VIAL IVP SCH (11:52)
[2017-05-10 11:53] LABS: Glucose,Whole Blood 146 mg/dL (75-99)
[2017-05-10] MEDS: MVI, ADULT NO.4 WITH VIT K 10 ML, TRACE (CONC-1ML/DOSE) 1 ML, POTASSIUM CHLORIDE 20 MEQ... IV SCH ×5 (12:40)
--- NOTE | 2017-05-10 16:42 | P.PN ---
Subjective 72-year-old female being seen on rounds this morning is currently sitting up in bed. Patient reports has generalized body aches. No family at the bedside this morning. Dressing is off from the abdominal wound. Skin excoriation persist to the abdominal wall did speak with the ostomy nurse this morning who will evaluate this afternoon in attempt to apply appliance to the left lateral wound Objective - Vital Signs Vital signs: Vital Signs Temp 97.2 F L 05/10/17 12:00 Pulse 108 H 05/10/17 16:14 Resp 18 05/10/17 14:57 BP 109/66 05/10/17 12:00 Pulse Ox 95 05/10/17 12:00 Intake & Output 05/09/17 05/10/17 05/10/17 18:59 06:59 18:59 Intake Total 1188.339 384 4024 Output Total 200 200 Balance 1188.050 346 5591 Weight 71.4 kg 71 kg 71 kg Intake: IV 40 50 60 0.9 @ 10mls/hr 40 50 60 Intake, IV Titration 1148.259 890 2689 Amount Diltiazem 125 mg In 125.333 102 125 Sodium Chloride 0.9% 100 ml @ 10 MG/HR 10 mls/hr IV .[id number] [facility] Rx#: [id number] [facility], Adult No.4 with Vit 1023 996 K 10 ml Trace (Conc-1Ml/ Dose) 1 ml Potassium Chloride 20 meq Magnesium Sulfate 8 meq In Amino Acid 5%-D25w+Lytes*E* 1, 000 ml @ 45 mls/hr IV . [id number] [facility] Rx#:[id number] Tube Feeding 160 160 Output: Urine 200 200 Other: Voiding Method Toilet Toilet # Voids 1 4 - Exam Physical exam 72-year-old female sitting up in bed this morning pleasant cooperative oriented to person place event chief complaint Lungs diminished at the bases upper airways coarse rhonchi no cough noted no wheezing noted currently on room air sats are 91 Heart S1-S2 audible irregular monitor atrial fibrillation variable rates IV Cardizem drip Abdomen PEG tube connected to drainage the wound 3-4 cm left lateral abdominal wall no active drainage cellulitis to the abdominal wall no stool reportedly urinating with no difficulty no bowel movements TPN in progress Extremities no edema noted - Labs CBC & Chem 7: 05/10/17 06:50 05/10/17 06:50 Labs: Abnormal Lab Results - Last 24 Hours (Table) 05/09/17 05/10/17 05/10/17 Range/Units 20:22 05:47 06:50 RBC (3.80-5.40) m/uL Hgb (11.4-16.0) gm/dL Hct (34.0-46.0) % RDW (11.5-15.5) % Sodium 135 L (137-145) mmol/L Creatinine 0.41 L (0.52-1.04) mg/dL Glucose 137 H (74-99) mg/dL POC Glucose (mg/dL) 151 H 166 H (75-99) mg/dL Calcium 8.1 L (8.4-10.2) mg/dL Albumin 2.3 L (3.5-5.0) g/dL 05/10/17 05/10/17 Range/Units 06:50 11:30 RBC 2.91 L (3.80-5.40) m/uL Hgb 8.7 L (11.4-16.0) gm/dL Hct 27.6 L (34.0-46.0) % RDW 19.5 H (11.5-15.5) % Sodium (137-145) mmol/L Creatinine (0.52-1.04) mg/dL Glucose (74-99) mg/dL POC Glucose (mg/dL) 146 H (75-99) mg/dL Calcium (8.4-10.2) mg/dL Albumin (3.5-5.0) g/dL Assessment and Plan Plan: Impression Present on admission leaking PEG tube with abdominal wall cellulitis involving the PEG tube site History of neck cancer Episode of persistent chronic atrial fibrillation with a episode of rapid ventricular response Echocardiogram 11/22/2016 left ventricular systolic function low normal with an EF between 50 and 55% with no evidence of pulmonary hypertension Anemia due to malignancy hemoglobin stable Known coronary artery disease Obstructive sleep apnea noncompliant with CPAP therapy Chronic persistent atrial fibrillation with variable rates Active nicotine dependency Skin cancer involving the neck and the right cheek with resection with throat cancer on chemotherapy currently COPD with no evidence of an exacerbation Hypokalema hypo-magnesium electrolyte imbalance been replaced and corrected Persistent malfunctioning PEG tube Chest x-ray on May 07 decrease left pleural effusion with atelectasis Status post May 04 EGD with PEG tube placement and G-tube removal for malfunctioning G-tube Moderate protein calorie malnutrition Cardiac arrhythmia 17 beat nonsustained V. tach episode on May 09 Plan Continue TPN for nutritional support tube feeds are on hold Potassium and magnesium to be replaced Await further recommendations by surgical service Check blood cultures 2 Respiratory treatments as ordered Anticoagulation to be addressed Repeat labs in the morning Decrease the dose of Atarax to 25 4 times a day when necessary PICC line inserted for IV access GI prophylaxis Compression stockings to the lower extremities for DVT for prophylaxis Further recommendations pending CODE STATUS to be addressed by patient's [id number] currently a full code The above impression and plan of care have been discussed and directed by signing physician. Nancy Nobles nurse practitioner acting as scribe for signing physician.
[2017-05-10 16:56] LABS: Glucose,Whole Blood 112 mg/dL (75-99)
--- NOTE | 2017-05-10 17:12 | P.PN ---
Subjective Principal diagnosis: Malfunctioning PEG tube Patient doing much better. Minimal drainage since yesterday. Aquacel silver is currently being used in the wound itself. The skin around the wound site is improving. Less pain. Objective - Vital Signs Vital signs: Vital Signs Temp 97.2 F L 05/10/17 12:00 Pulse 108 H 05/10/17 16:14 Resp 18 05/10/17 14:57 BP 109/66 05/10/17 12:00 Pulse Ox 95 05/10/17 12:00 Intake & Output 05/09/17 05/10/17 05/10/17 18:59 06:59 18:59 Intake Total 1188.383 208 8343 Output Total 200 200 Balance 1188.382 191 8902 Weight 71.4 kg 71 kg 71 kg Intake: IV 40 50 60 0.9 @ 10mls/hr 40 50 60 Intake, IV Titration 1148.085 289 4239 Amount Diltiazem 125 mg In 125.333 102 125 Sodium Chloride 0.9% 100 ml @ 10 MG/HR 10 mls/hr IV .[id number] [facility] Rx#: [id number] [facility], Adult No.4 with Vit 1023 996 K 10 ml Trace (Conc-1Ml/ Dose) 1 ml Potassium Chloride 20 meq Magnesium Sulfate 8 meq In Amino Acid 5%-D25w+Lytes*E* 1, 000 ml @ 45 mls/hr IV . [id number] [facility] Rx#:[id number] Tube Feeding 160 160 Output: Urine 200 200 Other: Voiding Method Toilet Toilet # Voids 1 4 - Exam Abdomen: Soft, nondistended, wound now measuring 1 x 1 cm, no bilious drainage seen. Periwound maceration improved. - Labs CBC & Chem 7: 05/10/17 06:50 05/10/17 06:50 Labs: Abnormal Lab Results - Last 24 Hours (Table) 05/09/17 05/10/17 05/10/17 Range/Units 20:22 05:47 06:50 RBC (3.80-5.40) m/uL Hgb (11.4-16.0) gm/dL Hct (34.0-46.0) % RDW (11.5-15.5) % Sodium 135 L (137-145) mmol/L Creatinine 0.41 L (0.52-1.04) mg/dL Glucose 137 H (74-99) mg/dL POC Glucose (mg/dL) 151 H 166 H (75-99) mg/dL Calcium 8.1 L (8.4-10.2) mg/dL Albumin 2.3 L (3.5-5.0) g/dL 05/10/17 05/10/17 05/10/17 Range/Units 06:50 11:30 16:52 RBC 2.91 L (3.80-5.40) m/uL Hgb 8.7 L (11.4-16.0) gm/dL Hct 27.6 L (34.0-46.0) % RDW 19.5 H (11.5-15.5) % Sodium (137-145) mmol/L Creatinine (0.52-1.04) mg/dL Glucose (74-99) mg/dL POC Glucose (mg/dL) 146 H 112 H (75-99) mg/dL Calcium (8.4-10.2) mg/dL Albumin (3.5-5.0) g/dL Assessment and Plan (1) PEG tube malfunction Narrative/Plan: Continue wound care as ordered. Await family decision regarding extensive care and CODE STATUS. Continue TPN for now. May consider starting tube feeds through the new PEG tube tomorrow Status: Acute
[2017-05-10] MEDS: LEVOFLOXACIN 500MG-D5W PMX 500 MG in DEXTROSE/WATER 1 100ML.BAG IVPB SCH (20:41)
[2017-05-10 20:57] LABS: Glucose,Whole Blood 121 mg/dL (75-99)
[2017-05-10] MEDS: ATORVASTATIN 20 MG TAB PEG/G-TUBE SCH (22:34)
[2017-05-11] MEDS: IPRATROPIUM-ALBUTEROL 3 ML NEB INHALATION SCH ×6 (02:46→23:00)
[2017-05-11 02:57] LABS: Glucose,Whole Blood 143 mg/dL (75-99)
[2017-05-11] MEDS: INSULIN LISPRO (humaLOG) 300 UNIT/3 ML VIAL SQ SCH ×4 (03:34→21:55)
[2017-05-11] MEDS: HYDROmorphone 1 MG/ML 1 ML SYRINGE IVP PRN ×5 (03:53→23:06)
[2017-05-11 06:42] LABS: Anisocytosis Slight; Basophils % (A) 0 %; CH 29.5; CHCM 30.9; Eosinophils # (A) 0.4 k/uL (0-0.7); Eosinophils % (A) 5 %; HCT 27.8 % (34.0-46.0); HDW 3.04; HGB 8.6 gm/dL (11.4-16.0); Hypochromasia Moderate; Luc # (Auto) 0.18; Luc % (Auto) 2; Lymphocytes # (A) 1.1 k/uL (1.0-4.8); Lymphocytes % (A) 15 %; MCH 29.7 pg (25.0-35.0); MCHC 30.9 g/dL (31.0-37.0); MCV 95.9 fL (80.0-100.0); Macrocytosis Slight; Mean Platelet Volume 7.2; Monocytes # (A) 0.5 k/uL (0-1.0); Monocytes % (A) 7 %; Neutrophils # (A) 5.4 k/uL (1.3-7.7); Neutrophils % (A) 71 %; RDW 19.4 % (11.5-15.5); WBC 7.6 k/uL (3.8-10.6); WBC (Perox) 7.63
[2017-05-11 07:07] LABS: Anion Gap 7 mmol/L; Blood Urea Nitrogen 12 mg/dL (7-17); Calcium 8.1 mg/dL (8.4-10.2); Carbon Dioxide 23 mmol/L (22-30); Chloride 104 mmol/L (98-107); Glucose 146 mg/dL (74-99); Magnesium 1.7 mg/dL (1.6-2.3); Non-African American GFR(MDRD) >60 (>60 ml/min/1.73 sqM); Phosphorous 3.9 mg/dL (2.5-4.5); Potassium 4.3 mmol/L (3.5-5.1); Sodium 134 mmol/L (137-145)
[2017-05-11] MEDS: BUDESONIDE 0.5 MG/2 ML NEBU INHALATION SCH ×2 (07:46→19:15)
[2017-05-11] MEDS: PANTOPRAZOLE 40 MG/10 ML VIAL IVP SCH (08:30)
--- NOTE | 2017-05-11 08:53 | PN ---
CHIEF COMPLAINT: Nonhealing PEG tube site. HISTORY OF PRESENT ILLNESS: This lady has apparently developed a fistula near the PEG tube site now. There was discussion yesterday as to whether or not she will be transferred to [facility], but now she is stating that she wants to be discharged to home and kept comfortable and this will be arranged. PHYSICAL EXAM: Chest is clear. Cardiac exam is normal. Abdomen is protuberant. IMPRESSION: 1. Nonhealing wound around PEG tube site. 2. Cancer of the neck. PLAN: Work on a discharge plan and arrangements for her to go home on hospice. CLAUDIO
[2017-05-11] MEDS: DILTIAZEM 125 MG in SODIUM CHLORIDE 0.9% 100 ML IV SCH ×2 (11:31→23:35)
[2017-05-11] MEDS ORDERED: LORazepam 2 MG/ML SYRINGE IV PRN (11:43)
[2017-05-11 11:53] LABS: Glucose,Whole Blood 121 mg/dL (75-99)
[2017-05-11] MEDS: MVI, ADULT NO.4 WITH VIT K 10 ML, TRACE (CONC-1ML/DOSE) 1 ML, POTASSIUM CHLORIDE 20 MEQ... IV SCH ×5 (11:56)
--- NOTE | 2017-05-11 14:15 | P.PN ---
Subjective Principal diagnosis: Malfunctioning PEG tube Patient was somewhat confused and anxious earlier today. She actually had a fall where she was found sitting on the floor next to her bed. Denies pain. No ileus drainage from the wound site over the last 24 hours or so. Objective - Vital Signs Vital signs: Vital Signs Temp 97.6 F 05/11/17 12:00 Pulse 123 H 05/11/17 13:39 Resp 16 05/11/17 13:39 BP 134/94 05/11/17 13:39 Pulse Ox 95 05/11/17 13:39 Intake & Output 05/10/17 05/11/17 05/11/17 18:59 06:59 18:59 Intake Total 0770 062 1155 Output Total 200 Balance 9802 003 8295 Weight 71 kg 71.4 kg Intake: IV 60 80 0.9 @ 10mls/hr 60 80 Intake, IV Titration 6470 445 7825 Amount Diltiazem 125 mg In 125 125 125 Sodium Chloride 0.9% 100 ml @ 10 MG/HR 10 mls/hr IV .[id number] [facility] Rx#: [id number] Mvi, Adult No.4 with Vit 996 1023 K 10 ml Trace (Conc-1Ml/ Dose) 1 ml Potassium Chloride 20 meq Magnesium Sulfate 8 meq In Amino Acid 5%-D25w+Lytes*E* 1, 000 ml @ 45 mls/hr IV . [id number] [facility] Rx#:[id number] Tube Feeding 160 160 Output: Urine 200 Other: Voiding Method Toilet Toilet Toilet # Voids 4 1 # Bowel Movements 2 - Exam abdomen: Soft, nontender, nondistended, skin around wound site much improved. - Labs CBC & Chem 7: 05/11/17 06:00 05/11/17 06:00 Labs: Abnormal Lab Results - Last 24 Hours (Table) 05/10/17 05/10/17 05/11/17 Range/Units 16:52 20:55 02:54 RBC (3.80-5.40) m/uL Hgb (11.4-16.0) gm/dL Hct (34.0-46.0) % MCHC (31.0-37.0) g/dL RDW (11.5-15.5) % Sodium (137-145) mmol/L Creatinine (0.52-1.04) mg/dL Glucose (74-99) mg/dL POC Glucose (mg/dL) 112 H 121 H 143 H (75-99) mg/dL Calcium (8.4-10.2) mg/dL 05/11/17 05/11/17 05/11/17 Range/Units 06:00 06:00 11:45 RBC 2.90 L (3.80-5.40) m/uL Hgb 8.6 L (11.4-16.0) gm/dL Hct 27.8 L (34.0-46.0) % MCHC 30.9 L (31.0-37.0) g/dL RDW 19.4 H (11.5-15.5) % Sodium 134 L (137-145) mmol/L Creatinine 0.44 L (0.52-1.04) mg/dL Glucose 146 H (74-99) mg/dL POC Glucose (mg/dL) 121 H (75-99) mg/dL Calcium 8.1 L (8.4-10.2) mg/dL Assessment and Plan (1) PEG tube malfunction Narrative/Plan: Will begin low-dose tube feeds through the indwelling PEG tube. May utilize PEG tube for medications at this point. Status: Acute
[2017-05-11 16:50] LABS: Glucose,Whole Blood 114 mg/dL (75-99)
[2017-05-11] MEDS: LEVOFLOXACIN 500MG-D5W PMX 500 MG in DEXTROSE/WATER 1 100ML.BAG IVPB SCH (20:14)
[2017-05-11 20:47] LABS: Glucose,Whole Blood 140 mg/dL (75-99)
[2017-05-11] MEDS: ATORVASTATIN 20 MG TAB PEG/G-TUBE SCH (21:55)
[2017-05-12] MEDS: HYDROmorphone 1 MG/ML 1 ML SYRINGE IVP PRN ×7 (02:24→20:27)
[2017-05-12] MEDS ORDERED: MAGNESIUM SULFATE-D5W PMX 1 GM in DEXTROSE/WATER 1 100ML.BAG IVPB ONE (03:00)
[2017-05-12] MEDS: IPRATROPIUM-ALBUTEROL 3 ML NEB INHALATION SCH ×5 (03:06→20:04)
[2017-05-12 03:08] LABS: Glucose,Whole Blood 137 mg/dL (75-99)
[2017-05-12] MEDS: INSULIN LISPRO (humaLOG) 300 UNIT/3 ML VIAL SQ SCH ×4 (03:14→22:10)
[2017-05-12 05:55] LABS: Glucose,Whole Blood 146 mg/dL (75-99)
[2017-05-12 06:49] LABS: Anion Gap 7 mmol/L; Blood Urea Nitrogen 9 mg/dL (7-17); Calcium 8.4 mg/dL (8.4-10.2); Carbon Dioxide 25 mmol/L (22-30); Chloride 106 mmol/L (98-107); Glucose 112 mg/dL (74-99); Magnesium 2.1 mg/dL (1.6-2.3); Non-African American GFR(MDRD) >60 (>60 ml/min/1.73 sqM); Potassium 4.1 mmol/L (3.5-5.1); Sodium 138 mmol/L (137-145)
[2017-05-12] MEDS: PANTOPRAZOLE 40 MG/10 ML VIAL IVP SCH (07:53)
[2017-05-12] MEDS: BUDESONIDE 0.5 MG/2 ML NEBU INHALATION SCH ×2 (08:38→20:04)
[2017-05-12] MEDS: MVI, ADULT NO.4 WITH VIT K 10 ML, TRACE (CONC-1ML/DOSE) 1 ML, POTASSIUM CHLORIDE 20 MEQ... IV SCH ×5 (08:44)
[2017-05-12] MEDS: DILTIAZEM 125 MG in SODIUM CHLORIDE 0.9% 100 ML IV SCH (08:45)
[2017-05-12 09:29] LABS: Glucose,Whole Blood 141 mg/dL (75-99)
--- NOTE | 2017-05-12 10:20 | PN ---
CHIEF COMPLAINT: Squamous cell carcinoma and necrosis around PEG tube site. HISTORY OF PRESENT ILLNESS: This lady has been fairly stable. She is on hyperalimentation now. The plan was that she would go home possibly with hospice. Now, we are waiting to see what surgery is recommending. PHYSICAL EXAM: She remains pale. Chest is clear. Cardiac exam is normal. IMPRESSION: 1. Necrosis around PEG tube site. 2. Squamous cell carcinoma of the neck. PLAN: Continue supportive care and await for the patient and her family to make a decision regarding discharge. CLAUDIO
--- NOTE | 2017-05-12 10:37 | P.PN ---
Progress Note - Text The patient is resting comfortably in her bed. Her PEG tube appears to be functioning. There is no significant drainage from her PEG tube site. The patient will continue receive tube feeds for her malnutrition. Dr. Coles will reevaluate her on Sunday.
[2017-05-12 15:41] LABS: Glucose,Whole Blood 124 mg/dL (75-99)
--- NOTE | 2017-05-12 19:10 | PN ---
DATE OF SERVICE: 05/12/2017 CHIEF COMPLAINT: Ca of the neck and necrosis and nonhealing of the PEG tube area. HISTORY OF PRESENT ILLNESS: This lady is comfortable and there has been no apparent change. It was thought that she was going to be going home, but she is now on hyperalimentation and there is no plan to be discharged presently. PHYSICAL EXAM: CHEST: Clear. CARDIAC: Unchanged. ABDOMEN: Soft, nontender. Bowel sounds are present. IMPRESSION: 1. Necrosis and breakdown of abdominal wall tissue around PEG tube. 2. Squamous cell neoplasm of the neck. PLAN: Wait for the guidelines regarding her discharge. CLAUDIO
[2017-05-12] MEDS: LEVOFLOXACIN 500MG-D5W PMX 500 MG in DEXTROSE/WATER 1 100ML.BAG IVPB SCH (20:27)
[2017-05-12 20:52] LABS: Glucose,Whole Blood 133 mg/dL (75-99)
[2017-05-13] MEDS: IPRATROPIUM-ALBUTEROL 3 ML NEB INHALATION SCH ×6 (00:01→20:51)
[2017-05-13] MEDS: ATORVASTATIN 20 MG TAB PEG/G-TUBE SCH ×2 (00:22→21:39)
[2017-05-13] MEDS: HYDROmorphone 1 MG/ML 1 ML SYRINGE IVP PRN ×10 (00:22→21:40)
[2017-05-13 03:14] LABS: Glucose,Whole Blood 133 mg/dL (75-99)
[2017-05-13] MEDS: INSULIN LISPRO (humaLOG) 300 UNIT/3 ML VIAL SQ SCH ×4 (03:31→21:27)
[2017-05-13] MEDS: DILTIAZEM 125 MG in SODIUM CHLORIDE 0.9% 100 ML IV SCH ×2 (03:35→08:03)
[2017-05-13 07:01] LABS: Anion Gap 7 mmol/L; Blood Urea Nitrogen 12 mg/dL (7-17); Calcium 8.2 mg/dL (8.4-10.2); Carbon Dioxide 24 mmol/L (22-30); Chloride 105 mmol/L (98-107); Glucose 129 mg/dL (74-99); Magnesium 1.8 mg/dL (1.6-2.3); Non-African American GFR(MDRD) >60 (>60 ml/min/1.73 sqM); Phosphorous 4.4 mg/dL (2.5-4.5); Sodium 136 mmol/L (137-145)
[2017-05-13 07:17] LABS: Potassium 4.8 mmol/L (3.5-5.1)
[2017-05-13] MEDS: MVI, ADULT NO.4 WITH VIT K 10 ML, TRACE (CONC-1ML/DOSE) 1 ML, POTASSIUM CHLORIDE 20 MEQ... IV SCH ×5 (08:04)
[2017-05-13] MEDS: BUDESONIDE 0.5 MG/2 ML NEBU INHALATION SCH ×2 (08:12→20:50)
[2017-05-13] MEDS: PANTOPRAZOLE 40 MG/10 ML VIAL IVP SCH (09:23)
[2017-05-13 09:26] LABS: Glucose,Whole Blood 130 mg/dL (75-99)
--- NOTE | 2017-05-13 12:02 | P.PN ---
Progress Note - Text The patient is resting comfortably in her bed. Her PEG tube dysfunction. There is been no evidence of leakage. Patient's PEG tube will be advanced to goal feeding. Dr. Coles will reevaluate her in the morning.
[2017-05-13 14:56] LABS: Glucose,Whole Blood 122 mg/dL (75-99)
[2017-05-13] MEDS: DILTIAZEM ORAL 30 MG TAB PO SCH ×2 (15:31→21:39)
[2017-05-13 16:54] LABS: Glucose,Whole Blood 116 mg/dL (75-99)
[2017-05-13 21:12] LABS: Glucose,Whole Blood 111 mg/dL (75-99)
[2017-05-13] MEDS: LEVOFLOXACIN 500MG-D5W PMX 500 MG in DEXTROSE/WATER 1 100ML.BAG IVPB SCH (21:39)
[2017-05-13] MEDS: METOPROLOL TARTRATE 25 MG TAB PO SCH (21:39)
[2017-05-14] MEDS: IPRATROPIUM-ALBUTEROL 3 ML NEB INHALATION SCH ×7 (00:09→22:42)
[2017-05-14] MEDS: HYDROmorphone 1 MG/ML 1 ML SYRINGE IVP PRN ×9 (00:33→22:34)
[2017-05-14] MEDS: INSULIN LISPRO (humaLOG) 300 UNIT/3 ML VIAL SQ SCH ×4 (03:06→22:08)
[2017-05-14 03:07] LABS: Glucose,Whole Blood 134 mg/dL (75-99)
[2017-05-14] MEDS: MVI, ADULT NO.4 WITH VIT K 10 ML, TRACE (CONC-1ML/DOSE) 1 ML, POTASSIUM CHLORIDE 20 MEQ... IV SCH ×5 (05:37)
[2017-05-14] MEDS ORDERED: [UNRECOGNIZED DRUG - OTHER] IV SCH ×6 (07:31)
[2017-05-14] MEDS ORDERED: POTASSIUM PHOSPHATE IV SCH ×6 (07:31)
[2017-05-14] MEDS ORDERED: MAGNESIUM SULFATE IV SCH ×6 (07:31)
[2017-05-14] MEDS ORDERED: PARENTERAL ELECTROLYTES IV SCH ×6 (07:31)
[2017-05-14] MEDS: PANTOPRAZOLE 40 MG/10 ML VIAL IVP SCH (07:54)
[2017-05-14] MEDS: METOPROLOL TARTRATE 25 MG TAB PO SCH ×2 (07:55→19:41)
[2017-05-14] MEDS: DILTIAZEM ORAL 30 MG TAB PO SCH ×3 (07:55→19:41)
[2017-05-14] MEDS: BUDESONIDE 0.5 MG/2 ML NEBU INHALATION SCH ×2 (08:02→19:34)
[2017-05-14 10:23] LABS: Anion Gap 7 mmol/L; Blood Urea Nitrogen 14 mg/dL (7-17); Calcium 8.3 mg/dL (8.4-10.2); Carbon Dioxide 26 mmol/L (22-30); Chloride 102 mmol/L (98-107); Glucose 119 mg/dL (74-99); Magnesium 1.8 mg/dL (1.6-2.3); Non-African American GFR(MDRD) >60 (>60 ml/min/1.73 sqM); Phosphorous 4.7 mg/dL (2.5-4.5); Potassium 4.7 mmol/L (3.5-5.1); Sodium 135 mmol/L (137-145)
[2017-05-14 11:27] LABS: Glucose,Whole Blood 132 mg/dL (75-99)
[2017-05-14 12:58] VITALS: BMI 29.3
[2017-05-14 17:10] LABS: Glucose,Whole Blood 119 mg/dL (75-99)
--- NOTE | 2017-05-14 17:54 | P.PN ---
Subjective Principal diagnosis: Malfunctioning PEG tube Patient doing well. No further drainage. Tolerating tube feeds still at 10 mL per hour. Some nausea this morning but that is improved. Patient is anxious to go home at this point Objective - Vital Signs Vital signs: Vital Signs Temp 97.0 F L 05/14/17 16:00 Pulse 110 H 05/14/17 16:00 Resp 18 05/14/17 16:00 BP 122/66 05/14/17 16:00 Pulse Ox 99 05/14/17 16:00 Intake & Output 05/13/17 05/14/17 05/14/17 18:59 06:59 18:59 Intake Total 5467.240 1153.75 120 Balance 2662.332 8428.75 120 Weight 70.5 kg 70.5 kg Intake: Intake, IV Titration 1067.667 969.75 Amount Diltiazem 125 mg In 44.667 Sodium Chloride 0.9% 100 ml @ 10 MG/HR 10 mls/hr IV .[id number] [facility] Rx#: [id number] Mvi, Adult No.4 with Vit 1023 969.75 K 10 ml Trace (Conc-1Ml/ Dose) 1 ml Potassium Chloride 20 meq Magnesium Sulfate 8 meq In Amino Acid 5%-D25w+Lytes*E* 1, 000 ml @ 45 mls/hr IV . [id number] [facility] Rx#:[id number] Tube Feeding 120 120 Other: Voiding Method Toilet Toilet Toilet # Voids 2 1 - Exam Skin around prior ostomy site clean with mild induration and mild tenderness - Labs CBC & Chem 7: 05/11/17 06:00 05/14/17 08:45 Labs: Abnormal Lab Results - Last 24 Hours (Table) 05/13/17 05/14/17 05/14/17 Range/Units 21:11 03:06 08:45 Sodium 135 L (137-145) mmol/L Creatinine 0.46 L (0.52-1.04) mg/dL Glucose 119 H (74-99) mg/dL POC Glucose (mg/dL) 111 H 134 H (75-99) mg/dL Calcium 8.3 L (8.4-10.2) mg/dL Phosphorus 4.7 H (2.5-4.5) mg/dL 05/14/17 05/14/17 Range/Units 11:06 16:55 Sodium (137-145) mmol/L Creatinine (0.52-1.04) mg/dL Glucose (74-99) mg/dL POC Glucose (mg/dL) 132 H 119 H (75-99) mg/dL Calcium (8.4-10.2) mg/dL Phosphorus (2.5-4.5) mg/dL Assessment and Plan (1) PEG tube malfunction Narrative/Plan: Slowly advance tube feeds as tolerated this point. Anticipate discharge in the morning. Status: Acute
[2017-05-14] MEDS: ATORVASTATIN 20 MG TAB PEG/G-TUBE SCH (19:41)
[2017-05-14] MEDS: LEVOFLOXACIN 500MG-D5W PMX 500 MG in DEXTROSE/WATER 1 100ML.BAG IVPB SCH (19:46)
--- NOTE | 2017-05-14 20:05 | PN ---
DATE OF SERVICE: 05/13/17 CHIEF COMPLAINT: Necrosis infection around PEG tube. HISTORY OF PRESENT ILLNESS: This lady seems to be fairly comfortable and there has been no interval change. PHYSICAL EXAMINATION: Chest is clear. Cardiac exam is normal. IMPRESSION: 1. Breakdown of soft tissue around PEG tube. 2. Squamous cell neoplasm of the neck. PLAN: Await for further treatment recommendations of discharge from surgery and oncology. MTDD
--- NOTE | 2017-05-14 20:28 | PN ---
DATE OF SERVICE: 05/14/17 CHIEF COMPLAINT: CA of the neck and necrosis around PEG tube. HISTORY OF PRESENT ILLNESS: This lady is continued on hyperalimentation, is otherwise unchanged. REVIEW OF SYSTEMS: She is having a little less pain than she was. PHYSICAL EXAMINATION: Chest is clear. Cardiac exam is normal. IMPRESSION: Necrosis around PEG tube site. PLAN: Follow with general surgery until she can be discharged. CLAUDIO
[2017-05-14 21:00] LABS: Glucose,Whole Blood 113 mg/dL (75-99)
[2017-05-15] MEDS: HYDROmorphone 1 MG/ML 1 ML SYRINGE IVP PRN ×6 (00:32→12:20)
[2017-05-15 01:58] VITALS: RESP 18
[2017-05-15] MEDS: IPRATROPIUM-ALBUTEROL 3 ML NEB INHALATION SCH ×3 (02:45→11:41)
[2017-05-15] MEDS ORDERED: [UNRECOGNIZED DRUG - REMARK] IV SCH ×5 (03:00)
[2017-05-15 03:03] LABS: Glucose,Whole Blood 101 mg/dL (75-99)
[2017-05-15] MEDS: INSULIN LISPRO (humaLOG) 300 UNIT/3 ML VIAL SQ SCH ×2 (03:18→08:50)
[2017-05-15 05:32] LABS: Glucose,Whole Blood 105 mg/dL (75-99)
[2017-05-15 07:22] LABS: Anion Gap 8 mmol/L; Blood Urea Nitrogen 12 mg/dL (7-17); Calcium 8.5 mg/dL (8.4-10.2); Carbon Dioxide 24 mmol/L (22-30); Chloride 104 mmol/L (98-107); Glucose 89 mg/dL (74-99); Magnesium 1.6 mg/dL (1.6-2.3); Non-African American GFR(MDRD) >60 (>60 ml/min/1.73 sqM); Phosphorous 4.5 mg/dL (2.5-4.5); Potassium 4.3 mmol/L (3.5-5.1); Sodium 136 mmol/L (137-145)
[2017-05-15] MEDS: BUDESONIDE 0.5 MG/2 ML NEBU INHALATION SCH (08:08)
[2017-05-15] MEDS: PANTOPRAZOLE 40 MG/10 ML VIAL IVP SCH (08:33)
[2017-05-15] MEDS: METOPROLOL TARTRATE 25 MG TAB PO SCH (08:33)
[2017-05-15] MEDS: DILTIAZEM ORAL 30 MG TAB PO SCH (08:33)
[2017-05-15 09:02] LABS: Glucose,Whole Blood 104 mg/dL (75-99)
[2017-05-15 11:11] VITALS: BP 103/66; TEMP 98
[2017-05-15 11:53] VITALS: PULSE 108
--- NOTE | 2017-05-15 11:57 | P.DS ---
Providers Date of admission: 05/01/17 13:06 Expected date of discharge: 05/15/17 Attending physician: Jorge A Coles Consults: 05/01/17 21:34 Consult Physician Routine Consulting Provider: Chuy Soliman Consult Reason/Comments: medical management Do you want consulting provider notified?: Yes, Notify in am 05/01/17 21:35 Consult Physician Routine Consulting Provider: Rishi Harper Consult Reason/Comments: throat cancer Do you want consulting provider notified?: Yes, Notify in am 05/02/17 05:33 Consult Physician Urgent Consulting Provider: Michael Leyva Consult Reason/Comments: tachycardia Do you want consulting provider notified?: Yes 05/08/17 14:15 Consult Physician Urgent Consulting Provider: Devin Ortiz Consult Reason/Comments: recommendations for cancer malignancy pain Do you want consulting provider notified?: Yes - Discharge Diagnosis(es) (1) PEG tube malfunction Patient hospitalized during the course of her chemotherapy for head and neck cancer with a wound at her previous gastrostomy tube site. A variety of different techniques were utilized to try to heal this wound including catheter exchange and subsequent new pegg tube placement with old gastrostomy tube removal. After the old gastrostomy was removed the patient continue to have significant drainage from that site or while. It has the last 3-4 days finally stopped draining gastric contents. She is now tolerating tube feeds through her new or PEG tube at 40 mL/h. She has had episodes of confusion that is improved. She was on TPN during the hospitalization. She was seen by variety of consultants during this hospital stay. The patient would like to go home and is not interested in a shelter stay. There was some talk about hospice although at this point the Family wants to take her home and will consider ongoing chemotherapy at that time. She will follow-up with her primary care physician and oncologist postdischarge. Tube feeds are being arranged for home use. Stable for discharge today. Current Visit: No Status: Acute Patient Condition at Discharge: Stable Plan - Discharge Summary New Discharge Prescriptions: No Action Diltiazem Oral [Cardizem Oral] 30 mg PEG/G-TUBE TID Atorvastatin [Lipitor] 20 mg PEG/G-TUBE HS Ergocalciferol [Vitamin D2] 50,000 unit PEG/G-TUBE JOINER Dexamethasone [Hexadrol] 2 mg PEG/G-TUBE DAILY Aspirin 325 mg PEG/G-TUBE DAILY Diphenox-Atrop 2.5-0.025 mg [Lomotil] 2 tab PEG/G-TUBE Q4H PRN PRN Reason: Diarrhea Ipratropium-Albuterol Nebulize [Duoneb 0.5 mg-3 mg/3 ml Soln] 3 ml INHALATION RT-Q4H Hyoscyamine Sulfate [Hyoscyamine Sulfate SL] 0.125 mg SUBLINGUAL Q6H PRN PRN Reason: Oral Secretions Budesonide [Pulmicort] 0.5 mg INHALATION RT-BID Ondansetron Odt [Zofran Odt] 8 mg PO Q12HR Metoprolol Tartrate 25 mg PEG/G-TUBE BID Cephalexin [Keflex] 250 mg PO QID Discharge Medication List Aspirin 325 mg PEG/G-TUBE DAILY 04/27/17 [History] Atorvastatin [Lipitor] 20 mg PEG/G-TUBE HS 04/27/17 [History] Budesonide [Pulmicort] 0.5 mg INHALATION RT-BID 04/27/17 [History] Dexamethasone [Hexadrol] 2 mg PEG/G-TUBE DAILY 04/27/17 [History] Diltiazem Oral [Cardizem Oral] 30 mg PEG/G-TUBE TID 04/27/17 [History] Diphenox-Atrop 2.5-0.025 mg [Lomotil] 2 tab PEG/G-TUBE Q4H PRN 04/27/17 [History ] Ergocalciferol [Vitamin D2] 50,000 unit PEG/G-TUBE JOINER 04/27/17 [History] Hyoscyamine Sulfate [Hyoscyamine Sulfate SL] 0.125 mg SUBLINGUAL Q6H PRN [History] Ipratropium-Albuterol Nebulize [Duoneb 0.5 mg-3 mg/3 ml Soln] 3 ml INHALATION RT -Q4H 04/27/17 [History] Cephalexin [Keflex] 250 mg PO QID 05/01/17 [History] Metoprolol Tartrate 25 mg PEG/G-TUBE BID 05/01/17 [History] Ondansetron Odt [Zofran Odt] 8 mg PO Q12HR 05/01/17 [History] Follow up Appointment(s)/Referral(s): [facility], [NON-STAFF] - Unruly Davies MD [STAFF PHYSICIAN] - 1-2 days Rishi Harper MD [STAFF PHYSICIAN] - 05/17/17 11:30 am
--- NOTE | 2017-05-16 22:23 | DS ---
CHIEF COMPLAINT: Infection, leakage and necrosis around PEG tube. HISTORY OF PRESENT ILLNESS AND PHYSICAL EXAM: The details of this lady's history and physical can be found in the initial workup. LABORATORY STUDIES: While she was in the hospital she had laboratory studies, details of which can be found in the laboratory section of her chart. COURSE IN THE HOSPITAL: After admission she was placed on bedrest and started on intravenous fluids. There were multiple attempts at improving ( ) at the abdominal site and eventually it was felt that this was under reasonably good control and Surgery recommended that she be discharged. They will provide her followup as an outpatient along with Oncology for management of her neoplasm. CLAUDIO
--- NOTE | 2017-05-17 06:31 | DS ---
CHIEF COMPLAINT: Infection, leakage and necrosis around PEG tube. HISTORY OF PRESENT ILLNESS AND PHYSICAL EXAM: Details of this lady's history and physical can be found in the initial workup. LABORATORY STUDIES: While she was in the hospital she had laboratory studies, which can be found in the laboratory section of the chart. COURSE IN THE HOSPITAL: After admission, she was placed on bed rest, started on intravenous fluids and there were multiple attempts at improving on the problem with the abdominal site and eventually it was felt that this was ( ), minimally good control and Surgery recommended that she be discharged. They will provide her followup as an outpatient along with Oncology for management of the neoplasm. CLAUDIO
== END 2017-05-15 15:24 | disposition home health service (06) | DRG 394 ==
LOC: EC 10:15 → SUPCPDRO 10:15 → 4MS4W 13:06 → 5ONC 13:45 → 6SEL 05-02 08:32
PROVIDERS: ADMIT Surgery; ATTEND Surgery
PROC: 0DH63UZ Insertion of Feeding Device into Stomach, Percutaneous Approach (ICD-10-PCS; 2017-05-04)
PROC: 3E0G76Z Introduction of Nutritional Substance into Upper GI, Via Natural or Artificial Opening (ICD-10-PCS; 2017-05-04)
PROC: 3E0336Z Introduction of Nutritional Substance into Peripheral Vein, Percutaneous Approach (ICD-10-PCS; 2017-05-04)
PROC: 0DP6XUZ Removal of Feeding Device from Stomach, External Approach (ICD-10-PCS; principal; 2017-05-04 07:30)
PROC: 02HV33Z Insertion of Infusion Device into Superior Vena Cava, Percutaneous Approach (ICD-10-PCS; 2017-05-07)
PROC: B548ZZA Ultrasonography of Superior Vena Cava, Guidance (ICD-10-PCS; 2017-05-07)
PROC: B518ZZA Fluoroscopy of Superior Vena Cava, Guidance (ICD-10-PCS; 2017-05-07)
DX: K94.23 Gastrostomy malfunction (principal); J96.11 Chronic respiratory failure with hypoxia; I47.2 Ventricular tachycardia; J90 Pleural effusion, not elsewhere classified; E44.0 Moderate protein-calorie malnutrition; I48.1 Persistent atrial fibrillation; I48.2 Chronic atrial fibrillation; C76.0 Malignant neoplasm of head, face and neck; D70.1 Agranulocytosis secondary to cancer chemotherapy; I10 Essential (primary) hypertension; L03.311 Cellulitis of abdominal wall; J98.11 Atelectasis; K94.22 Gastrostomy infection; D64.81 Anemia due to antineoplastic chemotherapy; J44.9 Chronic obstructive pulmonary disease, unspecified; E83.42 Hypomagnesemia; R13.10 Dysphagia, unspecified; E11.9 Type 2 diabetes mellitus without complications; G89.3 Neoplasm related pain (acute) (chronic); T45.1X5A Adverse effect of antineoplastic and immunosuppressive drugs, initial encounter; I25.10 Atherosclerotic heart disease of native coronary artery without angina pectoris; L25.3 Unspecified contact dermatitis due to other chemical products; K21.9 Gastro-esophageal reflux disease without esophagitis; E78.5 Hyperlipidemia, unspecified; E87.6 Hypokalemia; G47.33 Obstructive sleep apnea (adult) (pediatric); H35.30 Unspecified macular degeneration; I25.2 Old myocardial infarction; F17.200 Nicotine dependence, unspecified, uncomplicated; Z79.51 Long term (current) use of inhaled steroids; Z79.82 Long term (current) use of aspirin; Z79.899 Other long term (current) drug therapy; Z85.828 Personal history of other malignant neoplasm of skin; Z91.19 Patient's noncompliance with other medical treatment and regimen; Z95.5 Presence of coronary angioplasty implant and graft; Z92.21 Personal history of antineoplastic chemotherapy; Z90.710 Acquired absence of both cervix and uterus; Z91.018 Allergy to other foods; Z88.1 Allergy status to other antibiotic agents; Z88.8 Allergy status to other drugs, medicaments and biological substances; Y83.3 Surgical operation with formation of external stoma as the cause of abnormal reaction of the patient, or of later complication, without mention of misadventure at the time of the procedure; Y92.009 Unspecified place in unspecified non-institutional (private) residence as the place of occurrence of the external cause; W19.XXXA Unspecified fall, initial encounter
CPT/HCPCS: 36415; 36569; 43246; 71010; 71020; 71275; 74000; 76937; 77001; 80048; 80053; 82040; 82330; 83036; 83605; 83735; 83880; 84100; 84443; 84478; 84484; 85025; 85027; 85610; 87040; 93005; 93306; 94640; 94760; 96361; 96374; 99284

== ENCOUNTER 2017-06-20 12:17 | Inpatient (IN) | payer MEDICARE, OTHER ==
[2017-06-20] MEDS ORDERED: SODIUM CHLORIDE 0.9% 1,000 ML IV STA (12:55)
--- NOTE | 2017-06-20 13:01 | ED ---
ENT HPI - General Source: patient, RN notes reviewed Mode of arrival: ambulatory Limitations: no limitations <Yahaira Grissom - Last Filed: 06/20/17 14:21> <Akira Sam - Last Filed: 06/20/17 14:32> - General Chief complaint: ENT Stated complaint: Cancer pt-spitting up blood Time Seen by Provider: 06/20/17 12:50 - History of Present Illness Initial comments: 72-year-old female presents to the emergency Department chief complaint of coughing up blood. This started this morning. Patient is stage IV throat cancer per the family. they see Dr. Harper. Patient has been feeling very weak since and they state that she just seems very weak and sleepy. They state that they were concerned due to how much blood she was coughing up some without that they should be evaluated. She is currently undergoing radiation. She has any nausea vomiting pain. He states she does have dark black stools. The patient denies any other complaints at this time.Patient denies any recent fever , chills, shortness of breath, chest pain, back pain, abdominal pain, nausea vomiting, numbness or tingling, dysuria or hematuria, constipation or diarrhea, headaches or visual changes, or any other current symptoms. (Yahaira Grissom) - Related Data Home Medications Medication Instructions Recorded Confirmed Aspirin 325 mg PEG/G-TUBE DAILY 04/27/17 06/20/17 Atorvastatin [Lipitor] 20 mg PEG/G-TUBE HS 04/27/17 06/20/17 Diltiazem Oral [Cardizem Oral] 30 mg PEG/G-TUBE TID 04/27/17 06/20/17 Metoprolol Tartrate 25 mg PEG/G-TUBE BID 05/01/17 06/20/17 ALPRAZolam [Xanax] 0.25 mg PEG/G-TUBE DAILY PRN 06/20/17 06/20/17 Allergies Allergy/AdvReac Type Severity Reaction Status Date / Time ciprofloxacin [From Cipro] Allergy Rash/Hives Verified 06/20/17 12:44 dofetilide [From Tikosyn] Allergy Rash/Hives Verified 06/20/17 12:44 kiwi Allergy Rash/Hives Verified 06/20/17 12:44 naproxen [From Naprosyn] Allergy Itching Verified 06/20/17 12:44 Review of Systems ROS Other: All systems not noted in ROS Statement are negative. <Yahaira Grissom - Last Filed: 06/20/17 14:21> ROS Other: All systems not noted in ROS Statement are negative. <Akira Sam - Last Filed: 06/20/17 14:32> ROS Statement: Those systems with pertinent positive or pertinent negative responses have been documented in the HPI. Past Medical History Past Medical History: Atrial Fibrillation, Coronary Artery Disease (CAD), Cancer , COPD, Diabetes Mellitus, Eye Disorder, GERD/Reflux, Hyperlipidemia, Hypertension, Memory Impairment, Myocardial Infarction (HI), Pneumonia, Sleep Apnea/CPAP/BIPAP Additional Past Medical History / Comment(s): Morbid obesity, chronic hypoxic respiratory failure, COPD, obstructive sleep apnea noncompliant to CPAP therapy , chronic atrial fibrillation and the patient has failed cardioversion in the past and she has been maintained on long-term anticoagulation she has also episodes of multifocal atrial tachycardia, previous coronary stenting regarding coronary artery disease, hypertension, hyperlipidemia, after losing wt was taken off medications for diabetes mellitus, macular degeneration, dysphagia, nicotine addiction/smoking the patient has been trying to quit smoking by utilization of Chantix, skin cancer involving the neck and the right cheek that was resected. 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,TAKES NOTHING ORALLY. HAS SHORT TERM MEMORY PROBLEMS Last Myocardial Infarction Date:: 2009 History of Any Multi-Drug Resistant Organisms: MRSA Date of last positivie culture/infection: 11/21/16 MDRO Source:: Sputum Past Surgical History: Back Surgery, Bladder Surgery, Heart Catheterization With Stent, Hysterectomy Additional Past Surgical History / Comment(s): right hand carpal tunnel release , aug 2016 had a growth removed from her "vocal cords" Past Anesthesia/Blood Transfusion Reactions: No Reported Reaction Date of Last Stent Placement:: 2009 Past Psychological History: Anxiety, Depression Smoking Status: Former smoker Past Alcohol Use History: None Reported Past Drug Use History: None Reported - Past Family History Mother Family Medical History: Cancer Additional Family Medical History / Comment(s): lung Brother(s) Family Medical History: Cancer Additional Family Medical History / Comment(s): lung Father Family Medical History: Congestive Heart Failure (CHF) <Yahaira Grissom - Last Filed: 06/20/17 14:21> General Exam Limitations: no limitations General appearance: alert, other (Pallor) Head exam: Present: atraumatic, normocephalic, normal inspection Eye exam: Present: normal appearance, PERRL, EOMI, other (Pallor to the conjunctiva). Absent: scleral icterus, conjunctival injection, periorbital swelling ENT exam: Present: normal exam Neck exam: Present: normal inspection. Absent: tenderness, meningismus, lymphadenopathy Respiratory exam: Present: normal lung sounds bilaterally. Absent: respiratory distress, wheezes, rales, rhonchi, stridor Cardiovascular Exam: Present: regular rate, normal rhythm, normal heart sounds. Absent: systolic murmur, diastolic murmur, rubs, gallop, clicks Neurological exam: Present: alert Psychiatric exam: Present: normal affect, normal mood Skin exam: Present: warm, dry, intact, normal color. Absent: rash <Yahaira Grissom - Last Filed: 06/20/17 14:21> Medical Decision Making - Lab Data Result diagrams: 06/20/17 13:40 06/20/17 13:40 - EKG Data -: EKG Interpreted by Me (Atrial fibrillation with rapid ventricular response, left axis deviation,) <Yahaira Grissom - Last Filed: 06/20/17 14:21> - Lab Data Result diagrams: 06/20/17 13:40 06/20/17 13:40 <Akira Sam - Last Filed: 06/20/17 14:32> - Medical Decision Making 72-year-old female presents emergency department with a chief complaint of coughing up blood. At this time patient was found to be in A. fib with RVR. At this time the Cardizem drip was started on the patient. Patient does found to have bleeding in the mouth. Patient has had no active clots of blood come up here in the emergency department. This time hemoglobin is stable we will do repeat hemoglobin due to patient's presentation there is concern this could be an incorrect lab value. We will admit the patient to Dr. Harper time we will call in [facility]. There is concern for patient outcome at this time. Discussed the case with the family and they do state that she is no code. Patient will be admitted. (Yahaira Grissom) Medical decision-making. 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 She is receiving both chemo and radiation per family. Patient also has A. fib with RVR at this time. Blood pressure stable she will receive Cardizem IV push and Cardizem drip. I discussed the case with Dr. See, her oncologist. He wants her admitted to his service. He also requests Dr. Gonsales, ENT consult to see if the area this bleeding can be cauterized. Patient and family state that she is a no code not to be resuscitated. Dr. Sam (Akira Sam) - Lab Data Lab Results 06/20/17 06/20/17 06/20/17 Range/Units 13:40 13:40 13:40 WBC 7.6 (3.8-10.6) k/uL RBC 3.80 (3.80-5.40) m/uL Hgb 12.1 D (11.4-16.0) gm/dL Hct 38.0 (34.0-46.0) % MCV 100.0 (80.0-100.0) fL MCH 32.0 (25.0-35.0) pg MCHC 32.0 (31.0-37.0) g/dL RDW 18.0 H (11.5-15.5) % Plt Count 176 (150-450) k/uL Neutrophils % 87 % Lymphocytes % 6 % Monocytes % 4 % Eosinophils % 1 % Basophils % 0 % Neutrophils # 6.6 (1.3-7.7) k/uL Lymphocytes # 0.5 L (1.0-4.8) k/uL Monocytes # 0.3 (0-1.0) k/uL Eosinophils # 0.1 (0-0.7) k/uL Basophils # 0.0 (0-0.2) k/uL Hypochromasia Slight Anisocytosis Slight Macrocytosis Slight PT (9.0-12.0) sec INR (<1.2) APTT (22.0-30.0) sec Sodium 137 (137-145) mmol/L Potassium 4.5 (3.5-5.1) mmol/L Chloride 98 (98-107) mmol/L Carbon Dioxide 33 H (22-30) mmol/L Anion Gap 6 mmol/L BUN 43 H (7-17) mg/dL Creatinine 0.30 L (0.52-1.04) mg/dL Est GFR (MDRD) Af Amer >60 (>60 ml/min/1.73 sqM) Est GFR (MDRD) Non-Af >60 (>60 ml/min/1.73 sqM) Glucose 154 H (74-99) mg/dL Calcium 9.0 (8.4-10.2) mg/dL Magnesium 2.0 (1.6-2.3) mg/dL Total Bilirubin 0.5 (0.2-1.3) mg/dL AST 50 H (14-36) U/L ALT 152 H (9-52) U/L Alkaline Phosphatase 254 H (38-126) U/L Total Creatine Kinase <20 L (30-135) U/L Total Protein 5.2 L (6.3-8.2) g/dL Albumin 2.9 L (3.5-5.0) g/dL 06/20/17 Range/Units 13:40 WBC (3.8-10.6) k/uL RBC (3.80-5.40) m/uL Hgb (11.4-16.0) gm/dL Hct (34.0-46.0) % MCV (80.0-100.0) fL MCH (25.0-35.0) pg MCHC (31.0-37.0) g/dL RDW (11.5-15.5) % Plt Count (150-450) k/uL Neutrophils % % Lymphocytes % % Monocytes % % Eosinophils % % Basophils % % Neutrophils # (1.3-7.7) k/uL Lymphocytes # (1.0-4.8) k/uL Monocytes # (0-1.0) k/uL Eosinophils # (0-0.7) k/uL Basophils # (0-0.2) k/uL Hypochromasia Anisocytosis Macrocytosis PT 11.0 (9.0-12.0) sec INR 1.1 (<1.2) APTT 22.2 (22.0-30.0) sec Sodium (137-145) mmol/L Potassium (3.5-5.1) mmol/L Chloride (98-107) mmol/L Carbon Dioxide (22-30) mmol/L Anion Gap mmol/L BUN (7-17) mg/dL Creatinine (0.52-1.04) mg/dL Est GFR (MDRD) Af Amer (>60 ml/min/1.73 sqM) Est GFR (MDRD) Non-Af (>60 ml/min/1.73 sqM) Glucose (74-99) mg/dL Calcium (8.4-10.2) mg/dL Magnesium (1.6-2.3) mg/dL Total Bilirubin (0.2-1.3) mg/dL AST (14-36) U/L ALT (9-52) U/L Alkaline Phosphatase (38-126) U/L Total Creatine Kinase (30-135) U/L Total Protein (6.3-8.2) g/dL Albumin (3.5-5.0) g/dL Disposition Decision Date: 06/20/17 Decision Time: 14:24 <Yahaira Grissom - Last Filed: 06/20/17 14:21> <Akira Sam - Last Filed: 06/20/17 14:32> Clinical Impression: Acute upper GI bleeding, Atrial fibrillation with RVR, Throat cancer Disposition: ADMITTED IP TO THIS HOSP Referrals: None,Stated [Primary Care Provider] - 1-2 days
[2017-06-20 13:56] LABS: Anisocytosis Slight; Hypochromasia Slight; Macrocytosis Slight
[2017-06-20 14:09] LABS: ALT 152 U/L (9-52); AST 50 U/L (14-36); Alkaline Phosphatase 254 U/L (38-126); Anion Gap 6 mmol/L; Blood Urea Nitrogen 43 mg/dL (7-17); Carbon Dioxide 33 mmol/L (22-30); Chloride 98 mmol/L (98-107); Glucose 154 mg/dL (74-99); INR 1.1 (<1.2); Non-African American GFR(MDRD) >60 (>60 ml/min/1.73 sqM); Potassium 4.5 mmol/L (3.5-5.1); Sodium 137 mmol/L (137-145); Total Bilirubin 0.5 mg/dL (0.2-1.3); Total Protein 5.2 g/dL (6.3-8.2)
[2017-06-20 14:10] LABS: Partial Thromboplastin Time 22.2 sec (22.0-30.0)
[2017-06-20 14:11] LABS: Basophils % (A) 0 %; CH 31.4; CHCM 31.5; Eosinophils # (A) 0.1 k/uL (0-0.7); Eosinophils % (A) 1 %; HDW 2.71; Luc # (Auto) 0.07; Luc % (Auto) 1; Lymphocytes # (A) 0.5 k/uL (1.0-4.8); Lymphocytes % (A) 6 %; Mean Platelet Volume 8.5; Monocytes # (A) 0.3 k/uL (0-1.0); Monocytes % (A) 4 %; Neutrophils # (A) 6.6 k/uL (1.3-7.7); Neutrophils % (A) 87 %; WBC 7.6 k/uL (3.8-10.6); WBC (Perox) 7.68
[2017-06-20 14:13] LABS: HGB 12.1 gm/dL (11.4-16.0)
[2017-06-20 14:21] LABS: Creatine Kinase <20 U/L (30-135)
[2017-06-20] MEDS ORDERED: NALOXONE 0.4 MG/ML 1 ML VIAL IV PRN (14:24)
[2017-06-20 14:34] LABS: Creatine Kinase MB 1.6 ng/mL (0.0-2.4)
[2017-06-20 14:38] LABS: Troponin I 0.062 ng/mL (0.000-0.034)
--- NOTE | 2017-06-20 14:43 | XR ---
EXAMINATION TYPE: XR chest 2V DATE OF EXAM: 06/20/2017 COMPARISON: 05/07/2017 TECHNIQUE: PA and lateral views submitted. HISTORY: Hemoptysis FINDINGS: Mediport catheter noted. Tip of the catheter somewhat distal within the right atrium. Atherosclerotic change aorta. Interstitial pattern seen with subsegmental changes of the right lung base. No pleural effusion. Apical pleural thickening. Could not exclude osseous lesion the anterior margin the right first rib. IMPRESSION: 1. Interstitial pattern may been the basis of a pneumonitis or mild venous congestion. Correlate clin ically.
[2017-06-20] MEDS: DILTIAZEM 125 MG in SODIUM CHLORIDE 0.9% 100 ML IV ONE (14:49)
[2017-06-20 15:44] LABS: Anisocytosis Slight; Basophils % (A) 0 %; CH 31.4; CHCM 31.8; Eosinophils # (A) 0.1 k/uL (0-0.7); Eosinophils % (A) 1 %; HDW 2.76; HGB 12.1 gm/dL (11.4-16.0); Hypochromasia Slight; Luc # (Auto) 0.09; Luc % (Auto) 1; Lymphocytes # (A) 0.6 k/uL (1.0-4.8); Lymphocytes % (A) 7 %; MCH 32.5 pg (25.0-35.0); MCHC 32.8 g/dL (31.0-37.0); MCV 98.9 fL (80.0-100.0); Macrocytosis Slight; Mean Platelet Volume 8.2; Monocytes # (A) 0.4 k/uL (0-1.0); Monocytes % (A) 5 %; Neutrophils % (A) 86 %; RBC 3.74 m/uL (3.80-5.40); RDW 18.1 % (11.5-15.5); WBC 8.1 k/uL (3.8-10.6)
[2017-06-20] MEDS: SODIUM CHLORIDE 0.9% 1,000 ML IV SCH (16:06)
--- NOTE | 2017-06-20 20:26 | P.OP ---
Date of Procedure: 06/20/17 Preoperative Diagnosis: Blood from the mouth Postoperative Diagnosis: Same Procedure(s) Performed: Flexible nasopharyngeal laryngoscopy Anesthesia: none Surgeon: Kun Frazier Estimated Blood Loss (ml): 0 Pathology: none sent Condition: stable Disposition: PACU Indications for Procedure: This patient has been spitting up and her coughing blood from the emergency room was sent to the floor for observation and I've been asked to consult regarding this issue. I dissected the patient was diagnosed as having throat cancer in the past that was diagnosed in October with a stage IV throat cancer. I do not have a significant history with this patient. I understand that she started getting radiation therapy. She has had hoarseness. Operative Findings: Patient had an old dark blood coming from the lens upon coughing. No discrete site of any bleeding in the oral or hypopharynx. Description of Procedure: Patient was placed in a semiupright position and then the NF type GP nasopharyngoscope was inserted into the patient's nose into the nasopharynx into the oropharynx and then into the hypopharynx. There was a left septal deviation noted. There is no pathology the nasopharynx. The oropharynx showed no pathology. The hypopharynx demonstrates some thickening to the posterior pharyngeal wall there is some old blood seen in the vallecula and left base of tongue but no discrete masses seen. There is no active bleeding seen. When the patient coughs a large amount of old blood comes from the lungs. No bright red blood is seen. This old blood from the lysis could be from previous aspiration or possibly from a pulmonary etiology for her hemostasis.
--- NOTE | 2017-06-20 20:33 | P.GSCN ---
History of Present Illness Consult date: 06/20/17 Reason for Consult: Blood from mouth and throat Requesting physician: Rishi Harper History of present illness: This patient is a 72-year-old white female was diagnosed in October is having throat cancer. She was treated in [place] and locally his radiation and chemotherapy. She has lost her hair. She is very weak and has a hard time communicating. She was seen in the emergency room and a chest x-ray was done showing some pneumonitis. I've been asked to consult in the neck that the patient had a diagnosis of throat cancer and there was blood coming from her mouth and throat. She was coughing. She is a very poor historian and does not remember many of the doctors at have treated her or what was exactly performed. Review of Systems - Constitutional Reports anorexia - EENT Ears, nose, mouth and throat: Denies ant. neck pain - Cardiovascular Denies chest pain - Respiratory Reports cough, Reports cough with sputum, Reports hemoptysis - Gastrointestinal Denies coffee ground emesis - Genitourinary Genitourinary: Denies difficulty voiding Menstruation: Reports as per HPI - Musculoskeletal Reports atrophy - Integumentary Reports brittle nails - Neurological Reports balance difficulties - Psychiatric Denies anxiety attacks - Endocrine Denies excessive sweating - Hematologic/Lymphatic Reports easy bleeding - Allergic/Immunologic Denies allergic rhinitis Past Medical History Past Medical History: Atrial Fibrillation, Coronary Artery Disease (CAD), Cancer , COPD, Diabetes Mellitus, Eye Disorder, GERD/Reflux, Hyperlipidemia, Hypertension, Memory Impairment, Myocardial Infarction ([place]), Pneumonia, Sleep Apnea/CPAP/BIPAP Additional Past Medical History / Comment(s): Morbid obesity, chronic hypoxic respiratory failure, COPD, obstructive sleep apnea noncompliant to CPAP therapy , chronic atrial fibrillation and the patient has failed cardioversion in the past and she has been maintained on long-term anticoagulation she has also episodes of multifocal atrial tachycardia, previous coronary stenting regarding coronary artery disease, hypertension, hyperlipidemia, after losing wt was taken off medications for diabetes mellitus, macular degeneration, dysphagia, nicotine addiction/smoking the patient has been trying to quit smoking by utilization of Chantix, skin cancer involving the neck and the right cheek that was resected. 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 LAST Chemo tx 3 weeks ago and has had 15 out of 30 radiation tx so far.,PER FAMILY "PT TAKES NOTHING ORALLY EXCEPT FOR OCC ICE CHIPS OR SMALL SIP WATER, MEDS THRU PEG TUBE". HAS SHORT TERM MEMORY PROBLEMS, sensative to light-wears sunglasses Last Myocardial Infarction Date:: 2009 History of Any Multi-Drug Resistant Organisms: MRSA Year Discovered:: 11/21/16 MDRO Source:: Sputum Past Surgical History: Back Surgery, Bladder Surgery, Heart Catheterization With Stent, Hysterectomy Additional Past Surgical History / Comment(s): right hand carpal tunnel release , aug 2016 had a growth removed from her "vocal cords",05/04/17 EGD W/ PEG TUBE, PICC LINE Past Anesthesia/Blood Transfusion Reactions: No Reported Reaction Date of Last Stent Placement:: 2009 Smoking Status: Former smoker - Past Family History Mother Family Medical History: Cancer Additional Family Medical History / Comment(s): lung Brother(s) Family Medical History: Cancer Additional Family Medical History / Comment(s): lung Father Family Medical History: Congestive Heart Failure (CHF) Medications and Allergies Home Medications Medication Instructions Recorded Confirmed Type Aspirin 325 mg PEG/G-TUBE DAILY 04/27/17 06/20/17 History Atorvastatin [Lipitor] 20 mg PEG/G-TUBE HS 04/27/17 06/20/17 History Diltiazem Oral [Cardizem Oral] 30 mg PEG/G-TUBE BID 04/27/17 06/20/17 History Metoprolol Tartrate 25 mg PEG/G-TUBE BID 05/01/17 06/20/17 History ALPRAZolam [Xanax] 0.25 mg PEG/G-TUBE DAILY PRN 06/20/17 06/20/17 History Budesonide [Pulmicort] 0.5 mg INHALATION RT-BID 06/20/17 06/20/17 History Ipratropium-Albuterol Nebulize 3 ml INHALATION RT-Q4H 06/20/17 06/20/17 History [Duoneb 0.5 mg-3 mg/3 ml Soln] Magnesium Oxide [Mag-Ox] 400 mg PEG/G-TUBE BID 06/20/17 06/20/17 History Travoprost [Travatan Z 0.004%] 1 drop RIGHT EYE HS 06/20/17 06/20/17 History fentaNYL 25MCG/HR PATCH [Duragesic 1 patch TRANSDERM Q72H 06/20/17 06/20/17 History 25MCG/HR] Allergies Allergy/AdvReac Type Severity Reaction Status Date / Time ciprofloxacin [From Cipro] Allergy Rash/Hives Verified 06/20/17 12:44 dofetilide [From Tikosyn] Allergy Rash/Hives Verified 06/20/17 12:44 kiwi Allergy Rash/Hives Verified 06/20/17 12:44 naproxen [From Naprosyn] Allergy Itching Verified 06/20/17 12:44 Surgical - Exam Osteopathic Statement: *. No significant issues noted on an osteopathic structural exam other than those noted in the History and Physical/Consult. Vital Signs Temp Pulse Resp BP Pulse Ox 98.3 F 70 18 179/116 95 06/20/17 12:26 06/20/17 12:26 06/20/17 12:26 06/20/17 12:26 06/20/17 12:26 - General cachectic, chronically ill - Eyes PERRL - ENT normal pinna, normal nares, normal mucosa - Neck no masses, no bruits, no lymphadectomy - Respiratory normal respiratory effort - Cardiovascular Rhythm: irregularly irregular - Abdomen Abdomen: non tender - Integumentary no rash - Musculoskeletal normal gait - Psychiatric oriented to time, oriented to person, oriented to place, speech is normal Results - Labs 06/20/17 15:18 06/20/17 13:40 Abnormal Lab Results - Last 24 Hours (Table) 06/20/17 06/20/17 06/20/17 Range/Units 13:40 13:40 13:40 RBC (3.80-5.40) m/uL RDW 18.0 H (11.5-15.5) % Lymphocytes # 0.5 L (1.0-4.8) k/uL Carbon Dioxide 33 H (22-30) mmol/L BUN 43 H (7-17) mg/dL Creatinine 0.30 L (0.52-1.04) mg/dL Glucose 154 H (74-99) mg/dL AST 50 H (14-36) U/L ALT 152 H (9-52) U/L Alkaline Phosphatase 254 H (38-126) U/L Total Creatine Kinase <20 L (30-135) U/L Troponin I 0.062 H* (0.000-0.034) ng/mL Total Protein 5.2 L (6.3-8.2) g/dL Albumin 2.9 L (3.5-5.0) g/dL 06/20/17 Range/Units 15:18 RBC 3.74 L (3.80-5.40) m/uL RDW 18.1 H (11.5-15.5) % Lymphocytes # 0.6 L (1.0-4.8) k/uL Carbon Dioxide (22-30) mmol/L BUN (7-17) mg/dL Creatinine (0.52-1.04) mg/dL Glucose (74-99) mg/dL AST (14-36) U/L ALT (9-52) U/L Alkaline Phosphatase (38-126) U/L Total Creatine Kinase (30-135) U/L Troponin I (0.000-0.034) ng/mL Total Protein (6.3-8.2) g/dL Albumin (3.5-5.0) g/dL Diabetes panel 06/20/17 Range/Units 13:40 Sodium 137 (137-145) mmol/L Potassium 4.5 (3.5-5.1) mmol/L Chloride 98 (98-107) mmol/L Carbon Dioxide 33 H (22-30) mmol/L BUN 43 H (7-17) mg/dL Creatinine 0.30 L (0.52-1.04) mg/dL Glucose 154 H (74-99) mg/dL Calcium 9.0 (8.4-10.2) mg/dL AST 50 H (14-36) U/L ALT 152 H (9-52) U/L Alkaline Phosphatase 254 H (38-126) U/L Total Protein 5.2 L (6.3-8.2) g/dL Albumin 2.9 L (3.5-5.0) g/dL Calcium panel 06/20/17 Range/Units 13:40 Calcium 9.0 (8.4-10.2) mg/dL Albumin 2.9 L (3.5-5.0) g/dL Pituitary panel 06/20/17 Range/Units 13:40 Sodium 137 (137-145) mmol/L Potassium 4.5 (3.5-5.1) mmol/L Chloride 98 (98-107) mmol/L Carbon Dioxide 33 H (22-30) mmol/L BUN 43 H (7-17) mg/dL Creatinine 0.30 L (0.52-1.04) mg/dL Glucose 154 H (74-99) mg/dL Calcium 9.0 (8.4-10.2) mg/dL Adrenal panel 06/20/17 Range/Units 13:40 Sodium 137 (137-145) mmol/L Potassium 4.5 (3.5-5.1) mmol/L Chloride 98 (98-107) mmol/L Carbon Dioxide 33 H (22-30) mmol/L BUN 43 H (7-17) mg/dL Creatinine 0.30 L (0.52-1.04) mg/dL Glucose 154 H (74-99) mg/dL Calcium 9.0 (8.4-10.2) mg/dL Total Bilirubin 0.5 (0.2-1.3) mg/dL AST 50 H (14-36) U/L ALT 152 H (9-52) U/L Alkaline Phosphatase 254 H (38-126) U/L Total Protein 5.2 L (6.3-8.2) g/dL Albumin 2.9 L (3.5-5.0) g/dL Assessment and Plan (1) Hemoptysis Status: Acute (2) Anemia Status: Acute Plan: A very thorough examination reveals old blood coming from the lungs. There is no specific site of any acute bleeding in the hypopharynx or oropharynx. The old blood coming from the lungs, could been from previous aspiration or possibly from a pulmonary source of the bleeding. Nevertheless, pulmonary consultation is recommended and continued observation is also recommended. There is no evidence of any hypopharyngeal source of bleeding at this point. Time with Patient: Greater than 30
[2017-06-20] MEDS ORDERED: RX INFO: IV CONTRAST WAS GIVEN 1 EACH MISC MISCELLANE PRN (23:00)
[2017-06-20] MEDS: ATORVASTATIN 20 MG TAB PEG/G-TUBE SCH (23:21)
[2017-06-20] MEDS: ALPRAZolam 0.25 MG TAB PEG/G-TUBE PRN (23:21)
[2017-06-20] MEDS: IPRATROPIUM-ALBUTEROL 3 ML NEB INHALATION SCH (23:30)
--- NOTE | 2017-06-21 01:10 | CT ---
ADDENDUM - Added by Sonido Floyd M.D. on 06/21/2017 1:13 AM (-07:00) New bronchial wall thickening noted in the right lower lobe which may represent bronchitis versus edema. EXAM: CT Angiography Chest With Intravenous Contrast CLINICAL HISTORY: Hemoptysis TECHNIQUE: Axial computed tomographic angiography images of the chest with intravenous contrast using pulmonary embolism protocol. CTDI is 23.40 mGy and DLP is 291.10 mGy-cm. This CT exam was performed using one or more of the following dose reduction techniques: automated exposure control, adjustment of the mA and/or kV according to patient size, and/or use of iterative reconstruction technique. MIP reconstructed images were created and reviewed. COMPARISON: 05/02/2017 FINDINGS: Pulmonary arteries: Favor artifact at the level of the proximal subsegmental lower lobe pulmonary arteries. No definite pulmonary embolism. Aorta: Mild atherosclerotic change. No thoracic aortic aneurysm or dissection. Lungs: Right middle lobe and right lower lobe and to a lesser extent left upper lobe and left basilar nodular airspace disease and patchy groundglass attenuation, which may be secondary to infection or sequela of pulmonary edema. Within the lower lung zones, there is interlobular septal thickening with patchy subtle groundglass attenuation in the upper lung zones. The findings suggest pulmonary edema or pulmonary venous congestion superimposed on emphysema. No mass. Pleural space: Left pleural effusion has significantly decreased with only trace pleural fluid noted. No pneumothorax. Heart: Redemonstration of cardiomegaly with reflux of contrast into intrahepatic IVC and hepatic veins, compatible with elevated right heart pressures. No significant pericardial effusion. No evidence of RV dysfunction. Coronary artery calcifications. Bones/joints: No acute fracture. No dislocation. Degenerative changes of the spine. Soft tissues: Unremarkable. Lymph nodes: Previously seen right cervical necrotic lymph node or mass not included in [id number]. Upper abdomen: Gastrostomy tube visualized within the stomach antrum. Colonic diverticulosis visualized at the splenic flexure. No diverticulitis. Nonspecific similar thickening of the adrenal glands. Other: Right-sided Port-A-Cath terminates at the junction of the SVC and right atrium. IMPRESSION: 1. No definite evidence of acute pulmonary embolism. Favor artifact at the level of the proximal subsegmental lower lobe pulmonary arteries. 2. Redemonstration of cardiomegaly with reflux of injected contrast into intrahepatic IVC and hepatic veins, compatible with elevated right heart pressures. 3. Right greater than left lung nodular airspace disease with patchy groundglass attenuation, secondary to pneumonia or sequela of pulmonary edema. Lower lung zone interlobular septal thickening with patchy subtle groundglass attenuation in the upper lung zones suggests pulmonary edema or pulmonary venous congestion superimposed on emphysema. 4. Nearly resolved left pleural effusion. 5. Previously seen necrotic right cervical lymph node or mass was not included in [id number]. 6. Gastrostomy tube visualized within the stomach antrum.
[2017-06-21] MEDS: DILTIAZEM 125 MG in SODIUM CHLORIDE 0.9% 100 ML IV ONE (02:15)
[2017-06-21] MEDS: SODIUM CHLORIDE 0.9% 1,000 ML IV SCH ×2 (02:18→16:08)
[2017-06-21] MEDS: IPRATROPIUM-ALBUTEROL 3 ML NEB INHALATION SCH ×6 (06:19→23:19)
[2017-06-21 06:46] LABS: Anisocytosis Slight; Basophils % (A) 0 %; CHCM 30.6; Eosinophils % (A) 0 %; HDW 2.61; HGB 10.9 gm/dL (11.4-16.0); Hypochromasia Moderate; Luc # (Auto) 0.06; Luc % (Auto) 1; Lymphocytes # (A) 0.3 k/uL (1.0-4.8); Lymphocytes % (A) 4 %; MCH 31.7 pg (25.0-35.0); MCHC 30.3 g/dL (31.0-37.0); Macrocytosis Marked; Mean Platelet Volume 8.7; Monocytes # (A) 0.3 k/uL (0-1.0); Monocytes % (A) 4 %; Neutrophils # (A) 7.4 k/uL (1.3-7.7); Neutrophils % (A) 91 %; RBC 3.44 m/uL (3.80-5.40); WBC 8.1 k/uL (3.8-10.6); WBC (Perox) 8.36
[2017-06-21 06:55] LABS: ALT 127 U/L (9-52); AST 44 U/L (14-36); Alkaline Phosphatase 187 U/L (38-126); Anion Gap 8 mmol/L; Blood Urea Nitrogen 30 mg/dL (7-17); Calcium 8.5 mg/dL (8.4-10.2); Carbon Dioxide 23 mmol/L (22-30); Chloride 107 mmol/L (98-107); Glucose 103 mg/dL (74-99); Non-African American GFR(MDRD) >60 (>60 ml/min/1.73 sqM); Potassium 4.2 mmol/L (3.5-5.1); Sodium 138 mmol/L (137-145); Total Bilirubin 1.1 mg/dL (0.2-1.3); Total Protein 5.1 g/dL (6.3-8.2)
[2017-06-21 07:08] LABS: MCV 104.8 fL (80.0-100.0)
[2017-06-21] MEDS: BUDESONIDE 0.5 MG/2 ML NEBU INHALATION SCH ×2 (07:43→20:28)
--- NOTE | 2017-06-21 08:41 | P.CRDCN ---
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 The patient is also has a PEG tube. She was admitted to the hospital a few weeks ago with A. fib with RVR because she was not taking her medication because the PIC tube was not functioning normally. She was discharged from the hospital at that point in stable medical condition. She has been experiencing coughing blood and she was not feeling well for the last few days. Did not have any symptoms of chest pain. She has what it seems to be chronic shortness of breath according to her is unchanged compared to before. We get involved in her care because she is in A. fib with RVR. She stated that she was taking all her medication. Currently the heart rate is between 120 230 beats per minutes. She is on Cardizem IV. She is not on any anticoagulation. She was seen and evaluated yesterday by the ENT service in the ER. The last echocardiogram from a few weeks ago showed mildly impaired LV function with an ejection fraction of 45% with moderate aortic, mitral, tricuspid regurgitation. Past Medical History Past Medical History: Atrial Fibrillation, Coronary Artery Disease (CAD), Cancer , COPD, Diabetes Mellitus, Eye Disorder, GERD/Reflux, Hyperlipidemia, Hypertension, Memory Impairment, Myocardial Infarction ([place]), Pneumonia, Sleep Apnea/CPAP/BIPAP Additional Past Medical History / Comment(s): Morbid obesity, chronic hypoxic respiratory failure, COPD, obstructive sleep apnea noncompliant to CPAP therapy , chronic atrial fibrillation and the patient has failed cardioversion in the past and she has been maintained on long-term anticoagulation she has also episodes of multifocal atrial tachycardia, previous coronary stenting regarding coronary artery disease, hypertension, hyperlipidemia, after losing wt was taken off medications for diabetes mellitus, macular degeneration, dysphagia, nicotine addiction/smoking the patient has been trying to quit smoking by utilization of Chantix, skin cancer involving the neck and the right cheek that was resected. 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 LAST Chemo tx 3 weeks ago and has had 15 out of 30 radiation tx so far.,PER FAMILY "PT TAKES NOTHING ORALLY EXCEPT FOR OCC ICE CHIPS OR SMALL SIP WATER, MEDS THRU PEG TUBE". HAS SHORT TERM MEMORY PROBLEMS, sensative to light-wears sunglasses Last Myocardial Infarction Date:: 2009 History of Any Multi-Drug Resistant Organisms: MRSA Date of last positivie culture/infection: 11/21/16 MDRO Source:: Sputum Past Surgical History: Back Surgery, Bladder Surgery, Heart Catheterization With Stent, Hysterectomy Additional Past Surgical History / Comment(s): right hand carpal tunnel release , aug 2016 had a growth removed from her "vocal cords",05/04/17 EGD W/ PEG TUBE, PICC LINE Past Anesthesia/Blood Transfusion Reactions: No Reported Reaction Date of Last Stent Placement:: 2009 Smoking Status: Former smoker - Past Family History Mother Family Medical History: Cancer Additional Family Medical History / Comment(s): lung Brother(s) Family Medical History: Cancer Additional Family Medical History / Comment(s): lung Father Family Medical History: Congestive Heart Failure (CHF) Medications and Allergies Home Medications Medication Instructions Recorded Confirmed Type Aspirin 325 mg PEG/G-TUBE DAILY 04/27/17 06/20/17 History Atorvastatin [Lipitor] 20 mg PEG/G-TUBE HS 04/27/17 06/20/17 History Diltiazem Oral [Cardizem Oral] 30 mg PEG/G-TUBE BID 04/27/17 06/20/17 History Metoprolol Tartrate 25 mg PEG/G-TUBE BID 05/01/17 06/20/17 History ALPRAZolam [Xanax] 0.25 mg PEG/G-TUBE DAILY PRN 06/20/17 06/20/17 History Budesonide [Pulmicort] 0.5 mg INHALATION RT-BID 06/20/17 06/20/17 History Ipratropium-Albuterol Nebulize 3 ml INHALATION RT-Q4H 06/20/17 06/20/17 History [Duoneb 0.5 mg-3 mg/3 ml Soln] Magnesium Oxide [Mag-Ox] 400 mg PEG/G-TUBE BID 06/20/17 06/20/17 History Travoprost [Travatan Z 0.004%] 1 drop RIGHT EYE HS 06/20/17 06/20/17 History fentaNYL 25MCG/HR PATCH [Duragesic 1 patch TRANSDERM Q72H 06/20/17 06/20/17 History 25MCG/HR] Allergies Allergy/AdvReac Type Severity Reaction Status Date / Time ciprofloxacin [From Cipro] Allergy Rash/Hives Verified 06/20/17 12:44 dofetilide [From Tikosyn] Allergy Rash/Hives Verified 06/20/17 12:44 kiwi Allergy Rash/Hives Verified 06/20/17 12:44 naproxen [From Naprosyn] Allergy Itching Verified 06/20/17 12:44 Physical Exam Vitals: Vital Signs Temp Pulse Pulse Resp BP BP Pulse Ox 06/21/17 07:36 98 06/21/17 04:00 97.2 F L 125 H 20 119/66 96 06/21/17 00:00 97.3 F L 135 H 20 139/78 94 L 06/20/17 20:00 97.2 F L 153 H 22 133/83 96 06/20/17 18:32 97.6 F 150 H 22 135/55 95 06/20/17 18:00 175 H 26 H 144/65 94 L 06/20/17 17:00 155 H 24 138/85 96 06/20/17 16:34 136 H 14 133/62 98 06/20/17 16:06 122 H 16 06/20/17 15:58 97.7 F 152 H 22 117/77 98 06/20/17 14:49 165 H 14 165/92 97 06/20/17 13:43 98.7 F 160 H 18 132/104 99 06/20/17 12:26 98.3 F 70 18 179/116 95 Intake and Output 06/20/17 06/21/17 06/21/17 22:59 06:59 14:59 Intake Total 16.167 962 Output Total 0 Balance 16.167 962 Intake: IV 880 Diltiazem 125 mg In 80 Sodium Chloride 0.9% 100 ml @ 5 MG/HR 5 mls/hr IV .Q24H [facility] Rx#:[id number] Sodium Chloride 0.9% 1, 800 000 ml @ 100 mls/hr IV . Q10H [facility] Rx#:[id number] Intake, IV Titration 16.167 82 Amount Diltiazem 125 mg In 16.167 82 Sodium Chloride 0.9% 100 ml @ 5 MG/HR 5 mls/hr IV .Q24H [facility] Rx#:[id number] Output: Urine 0 Other: Voiding Method Bedside Commode Bedside Commode Weight 67 kg - Constitutional General appearance: no acute distress - Respiratory Respiratory: bilateral: rhonchi, wheezing - Cardiovascular Rhythm: irregularly irregular Heart sounds: normal: S1, S2 Results 06/21/17 06:04 06/21/17 06:04 Cardiac Enzymes 06/20/17 06/20/17 06/21/17 Range/Units 13:40 13:40 06:04 AST 50 H 44 H (14-36) U/L CK-MB (CK-2) 1.6 (0.0-2.4) ng/mL Troponin I 0.062 H* (0.000-0.034) ng/mL Coagulation 06/20/17 Range/Units 13:40 PT 11.0 (9.0-12.0) sec APTT 22.2 (22.0-30.0) sec CBC 06/20/17 06/20/17 06/21/17 Range/Units 13:40 15:18 06:04 WBC 7.6 8.1 8.1 (3.8-10.6) k/uL RBC 3.80 3.74 L 3.44 L (3.80-5.40) m/uL Hgb 12.1 D 12.1 10.9 L (11.4-16.0) gm/dL Hct 38.0 37.0 36.0 (34.0-46.0) % Plt Count 176 164 119 L (150-450) k/uL Comprehensive Metabolic Panel 06/20/17 06/21/17 Range/Units 13:40 06:04 Sodium 137 138 (137-145) mmol/L Potassium 4.5 4.2 (3.5-5.1) mmol/L Chloride 98 107 (98-107) mmol/L Carbon Dioxide 33 H 23 (22-30) mmol/L BUN 43 H 30 H (7-17) mg/dL Creatinine 0.30 L 0.31 L (0.52-1.04) mg/dL Glucose 154 H 103 H (74-99) mg/dL Calcium 9.0 8.5 (8.4-10.2) mg/dL AST 50 H 44 H (14-36) U/L ALT 152 H 127 H (9-52) U/L Alkaline Phosphatase 254 H 187 H (38-126) U/L Total Protein 5.2 L 5.1 L (6.3-8.2) g/dL Albumin 2.9 L 2.6 L (3.5-5.0) g/dL Current Medications Generic Name Dose Route Start Last Admin Trade Name Freq PRN Reason Stop Dose Admin Albuterol/Ipratropium 3 ml 06/21/17 00:00 06/21/17 07:43 Duoneb 0.5 Mg-3 Mg/3 Ml Soln INHALATION Not Given RT-Q4H [facility] Alprazolam 0.25 mg 06/20/17 14:26 06/20/17 23:21 Xanax PEG/G-TUBE 0.25 mg DAILY PRN Administration Anxiety Atorvastatin Calcium 20 mg 06/20/17 21:00 06/20/17 23:21 Lipitor PEG/G-TUBE 20 mg HS JUL[facility]N Administration Budesonide 0.5 mg 06/21/17 08:00 06/21/17 07:43 Pulmicort INHALATION Not Given RT-BID J[facility] Fentanyl 1 patch 06/21/17 12:00 Duragesic 25mcg/Hr Patch TRANSDERM Q72H [facility] Diltiazem HCl 125 mg/ Sodium 125 mls @ 5 mls/hr 06/20/17 14:06 06/21/17 02:15 Chloride IV 06/21/17 14:05 10 mg/hr .Q24H ONE 10 mls/hr Protocol Administration 5 MG/HR Sodium Chloride 1,000 mls @ 100 mls/hr 06/20/17 14:30 06/21/17 02:18 Saline 0.9% IV Not Given .Q10H [facility] Latanoprost 1 drops 06/21/17 21:00 Xalatan 0.005% RIGHT EYE HS [facility] Magnesium Oxide 400 mg 06/21/17 09:00 Mag-Ox PEG/G-TUBE BID [facility] Metoprolol Tartrate 25 mg 06/21/17 09:00 Lopressor PO DAILY [facility] Miscellaneous Information 1 each 06/20/17 23:00 Rx Info: Iv Contrast Was Given MISCELLANE 06/22/17 23:01 DAILY PRN Per Protocol Naloxone HCl 0.2 mg 06/20/17 14:24 Narcan IV Q2M PRN Opioid Reversal Intake and Output 06/20/17 06/21/17 06/21/17 22:59 06:59 14:59 Intake Total 16.167 962 Output Total 0 Balance 16.167 962 Intake: IV 880 Diltiazem 125 mg In 80 Sodium Chloride 0.9% 100 ml @ 5 MG/HR 5 mls/hr IV .Q24H [facility] Rx#:[id number] Sodium Chloride 0.9% 1, 800 000 ml @ 100 mls/hr IV . Q10H [facility] Rx#:[id number] Intake, IV Titration 16.167 82 Amount Diltiazem 125 mg In 16.167 82 Sodium Chloride 0.9% 100 ml @ 5 MG/HR 5 mls/hr IV .Q24H [facility] Rx#:[id number] Output: Urine 0 Other: Voiding Method Bedside Commode Bedside Commode Weight 67 kg 06/21/17 06:04 06/21/17 06:04 Assessment and Plan Plan: This is a pleasant 72-year-old female patient with long-standing persistent atrial fibrillation as well as history of laryngeal cancer currently under chemotherapy radiation therapy was admitted to the hospital with coughing up blood. Currently the patient is in A. fib with RVR. She is on Cardizem IV. She is not a candidate to receive any kind of anticoagulation. We will adjust the oral metoprolol and try to wean the patient from the Cardizem and drip. She just underwent an echocardiogram recently there is no need to repeat another echo on her at this point. We'll continue following up with her.
[2017-06-21] MEDS ORDERED: METOPROLOL TARTRATE 25 MG TAB PO SCH (09:00)
--- NOTE | 2017-06-21 15:51 | P.CNPUL ---
History of Present Illness Consult date: 06/21/17 Chief complaint: Hemoptysis History of present illness: A very pleasant 72-year-old female patient who was recently diagnosed having squamous cell carcinoma of the right tonsil and a diagnosis established in November 2016. At that time the patient presented with an oropharyngeal mass that was further evaluated by ENT and the patient was seen by Dr. Chase, Dr. Trinidad and following that the patient was referred to Dr. Hess at,CAT scan was done on 01/10/2017 it showed a 7.4 cm oropharyngeal mass and the biopsy was consistent with moderately differentiated squamous cell carcinoma. At that time the patient was having difficulties in swallowing and the patient had a PEG tube insertion for nutritional support. The patient was treated with neoadjuvant chemotherapy under the direction of Dr. Comer. The patient was given a combination of carboplatinum and Taxol. She started her treatment in the toilet and following that she continued her treatment here in town due to proximity. The patient was also treated with radiation therapy. The patient presented to the emergency department yesterday complaining of hemoptysis. Apparently she was coughing up blood and he started the day of admission. She was having multiple episodes of hemoptysis. The patient herself is a week historian. She denies having any epistaxis. She has difficulty in swallowing and she has excessive oral pharyngeal secretions in addition. She has episodes of coughing. Note that she has undergone radiation therapy. No melanotic stools. No epistaxis. No significant shortness of breath. She was found to be in atrial fibrillation and rapid ventricular response and the patient was started on Cardizem drip for rate control. At the same time and ENT evaluation was requested and the patient was seen by Dr. Gonsales and a upper endoscopy was done that showed no evidence of any bleeding sized from her oropharynx or hypopharynx. The operative findings showed old dark blood and there was no discrete site of bleeding identified. Based on all this a pulmonary consultation was requested. In the emergency department that showed no evidence of any pulmonary embolism. There was cardiomegaly and evidence of right sided heart pressure elevation. There was some limited no otherdisease and patchy groundglass changes in the right lower lobe/right middle lobe area. There was areas of septal thickening and subtle groundglass attenuation. There is background COPD and addition. No pleural effusions. No significant mediastinal lymphadenopathy. The the previously described necrotic right cervical node was not seen. Meanwhile, the patient remains nothing by mouth. She is receiving enteral feeding for nutritional support. She has multiple medical problems including morbid obesity, chronic hypoxic respiratory failure due to COPD and the patient has obstructive sleep apnea maintained on CPAP therapy. Her atrial fibrillation is chronic. She has also had episodes of multifocal that her tachycardia. She is known to have coronary artery disease hypertension hyperlipidemia and diabetes mellitus and macular degeneration. She is a chronic smoker in she quit smoking. She seems to be a bit lethargic. She is able to communicate. She does not take any form of anticoagulants at home. She is on aspirin 325 mg by mouth daily. Review of Systems Constitutional: Reports fatigue, Reports poor appetite, Reports weakness, Reports weight loss Eyes: denies blurred vision, denies bulging eye, denies decreased vision Ears: deny: decreased hearing, ear discharge, earache Ears, nose, mouth and throat: Reports dysphagia, Reports hoarseness, Reports neck fullness/pressure, Reports voice changes Cardiovascular: Reports decreased exercise tolerance, Reports dyspnea on exertion, Reports irregular heart beat, Reports shortness of breath Respiratory: Reports cough, Reports dyspnea, Reports hemoptysis Gastrointestinal: Denies abdominal pain, Denies diarrhea, Denies nausea, Denies vomiting Genitourinary: Denies dysuria, Denies hematuria Musculoskeletal: Denies myalgias Musculoskeletal: absent: ankle pain, ankle stiffness, ankle swelling Integumentary: Denies pruritus, Denies rash Neurological: Denies numbness, Denies weakness Psychiatric: Denies anxiety, Denies depression Endocrine: Denies fatigue, Denies weight change Past Medical History Past Medical History: Atrial Fibrillation, Coronary Artery Disease (CAD), Cancer , COPD, Diabetes Mellitus, Eye Disorder, GERD/Reflux, Hyperlipidemia, Hypertension, Memory Impairment, Myocardial Infarction ([place]), Pneumonia, Sleep Apnea/CPAP/BIPAP Additional Past Medical History / Comment(s): Morbid obesity, chronic hypoxic respiratory failure, COPD, obstructive sleep apnea noncompliant to CPAP therapy , chronic atrial fibrillation and the patient has failed cardioversion in the past and she has been maintained on long-term anticoagulation she has also episodes of multifocal atrial tachycardia, previous coronary stenting regarding coronary artery disease, hypertension, hyperlipidemia, after losing wt was taken off medications for diabetes mellitus, macular degeneration, dysphagia, nicotine addiction/smoking the patient has been trying to quit smoking by utilization of Chantix, skin cancer involving the neck and the right cheek that was resected. Squamous cell carcinoma moderately differentiated of the right tonsil the patient was treated with chemoradiation therapy. Note that the last Chemo tx 3 weeks ago and has had 15 out of 30 radiation tx so far., Enteral feeding via PEG tube for nutritional support and the patient is nothing by mouth for now. Last Myocardial Infarction Date:: 2009 History of Any Multi-Drug Resistant Organisms: MRSA Date of last positivie culture/infection: 11/21/16 MDRO Source:: Sputum Past Surgical History: Back Surgery, Bladder Surgery, Heart Catheterization With Stent, Hysterectomy Additional Past Surgical History / Comment(s): right hand carpal tunnel release , aug 2016 had a growth removed from her "vocal cords",05/04/17 EGD W/ PEG TUBE, PICC LINE Past Anesthesia/Blood Transfusion Reactions: No Reported Reaction Date of Last Stent Placement:: 2009 Smoking Status: Former smoker - Past Family History Mother Family Medical History: Cancer Additional Family Medical History / Comment(s): lung Brother(s) Family Medical History: Cancer Additional Family Medical History / Comment(s): lung Father Family Medical History: Congestive Heart Failure (CHF) Medications and Allergies Home Medications Medication Instructions Recorded Confirmed Type Aspirin 325 mg PEG/G-TUBE DAILY 04/27/17 06/20/17 History Atorvastatin [Lipitor] 20 mg PEG/G-TUBE HS 04/27/17 06/20/17 History Diltiazem Oral [Cardizem Oral] 30 mg PEG/G-TUBE BID 04/27/17 06/20/17 History Metoprolol Tartrate 25 mg PEG/G-TUBE BID 05/01/17 06/20/17 History ALPRAZolam [Xanax] 0.25 mg PEG/G-TUBE DAILY PRN 06/20/17 06/20/17 History Budesonide [Pulmicort] 0.5 mg INHALATION RT-BID 06/20/17 06/20/17 History Ipratropium-Albuterol Nebulize 3 ml INHALATION RT-Q4H 06/20/17 06/20/17 History [Duoneb 0.5 mg-3 mg/3 ml Soln] Magnesium Oxide [Mag-Ox] 400 mg PEG/G-TUBE BID 06/20/17 06/20/17 History Travoprost [Travatan Z 0.004%] 1 drop RIGHT EYE HS 06/20/17 06/20/17 History fentaNYL 25MCG/HR PATCH [Duragesic 1 patch TRANSDERM Q72H 06/20/17 06/20/17 History 25MCG/HR] Allergies Allergy/AdvReac Type Severity Reaction Status Date / Time ciprofloxacin [From Cipro] Allergy Rash/Hives Verified 06/20/17 12:44 dofetilide [From Tikosyn] Allergy Rash/Hives Verified 06/20/17 12:44 kiwi Allergy Rash/Hives Verified 06/20/17 12:44 naproxen [From Naprosyn] Allergy Itching Verified 06/20/17 12:44 Physical Exam Vitals: Vital Signs Temp Pulse Pulse Resp BP BP Pulse Ox 06/21/17 11:28 98 16 124/76 94 L 06/21/17 08:00 82 16 118/71 92 L 06/21/17 07:36 98 06/21/17 04:00 97.2 F L 125 H 20 119/66 96 06/21/17 00:00 97.3 F L 135 H 20 139/78 94 L 06/20/17 20:00 97.2 F L 153 H 22 133/83 96 06/20/17 18:32 97.6 F 150 H 22 135/55 95 06/20/17 18:00 175 H 26 H 144/65 94 L 06/20/17 17:00 155 H 24 138/85 96 06/20/17 16:34 136 H 14 133/62 98 06/20/17 16:06 122 H 16 06/20/17 15:58 97.7 F 152 H 22 117/77 98 Intake and Output 06/21/17 06/21/17 06/21/17 06:59 14:59 22:59 Intake Total 962 Output Total 0 Balance 962 Intake: IV 880 Diltiazem 125 mg In 80 Sodium Chloride 0.9% 100 ml @ 5 MG/HR 5 mls/hr IV .Q24H [facility] Rx#:[id number] Sodium Chloride 0.9% 1, 800 000 ml @ 100 mls/hr IV . Q10H [facility] Rx#:[id number] Intake, IV Titration 82 Amount Diltiazem 125 mg In 82 Sodium Chloride 0.9% 100 ml @ 5 MG/HR 5 mls/hr IV .Q24H [facility] Rx#:[id number] Output: Urine 0 Other: Voiding Method Bedside Commode Bedside Commode Weight 67 kg 67 kg Patient Weight 06/22/17 06:59 Weight 67 kg Gen. appearance the patient has lost her headaches to systemic chemotherapy. His calm and comfortable. Resting comfortably in bed. She is a bit pale. Head is atraumatic normocephalic and the patient has developed her last due to systemic chemotherapy. Neck is supple. There is some fullness over the right submandibular area. No direct tenderness. No rebound tenderness. No guarding. There is skin changes related to radiation therapy over the right neck area. Lung sounds are diminished bilaterally. Scattered rhonchi. Scattered crackles at lung bases bilaterally. Heart sounds are irregular, positive S1-S2 and there is no significant murmurs appreciated.Abdominal exam revealed normal bowel sounds. The abdomen was soft, non-tender, and without masses, organomegaly, or appreciable enlargement of the abdominal aorta. Active site is clean and intact.Examination of the extremities revealed easily palpable radial, femoral and pedal pulses. There was no cyanosis, clubbing or edema. Neurologically the patient is awake and alert and following commands. No focal neurological deficit. Skin examination is negative for any ulcers or wounds or cellulitis. Skeletal examination showed no evidence of any arthritis or joint deformities. Results - Laboratory Findings CBC and BMP: 06/21/17 06:04 06/21/17 06:04 PT/INR, D-dimer PT 11.0 sec (9.0-12.0) 06/20/17 13:40 INR 1.1 (<1.2) 06/20/17 13:40 Abnormal lab findings: Abnormal Labs 06/20/17 06/20/17 06/20/17 13:40 13:40 13:40 RBC Hgb MCV MCHC RDW 18.0 H Plt Count Lymphocytes # 0.5 L Carbon Dioxide 33 H BUN 43 H Creatinine 0.30 L Glucose 154 H AST 50 H ALT 152 H Alkaline Phosphatase 254 H Total Creatine Kinase <20 L Troponin I 0.062 H* Total Protein 5.2 L Albumin 2.9 L 06/20/17 06/21/17 06/21/17 15:18 06:04 06:04 RBC 3.74 L 3.44 L Hgb 10.9 L MCV 104.8 H D MCHC 30.3 L RDW 18.1 H 19.0 H Plt Count 119 L Lymphocytes # 0.6 L 0.3 L Carbon Dioxide BUN 30 H Creatinine 0.31 L Glucose 103 H AST 44 H ALT 127 H Alkaline Phosphatase 187 H Total Creatine Kinase Troponin I Total Protein 5.1 L Albumin 2.6 L - Diagnostic Findings Chest x-ray: image reviewed CT scan - chest: image reviewed Assessment and Plan Plan: Assessment 1 hemoptysis. The suspected source of bleeding is most likely the canister dislocation the right tonsillar area nontender the patient has a squamous cell carcinoma of the tonsil and the patient is being treated with a combination of chemoradiation therapy. ENT evaluation showed no evidence of any acute bleed. There was old retained blood within the posterior oropharynx and hypopharynx. I doubt a lower pulmonary source of bleeding. Nevertheless the bronchoscopy will be considered if the hemoptysis continues. ENT evaluation has been completed 2 moderate to differentiated squamous cell carcinoma of the tonsils. The patient is being treated with a combination of chemoradiation therapy. Received carboplatinum and Taxol last chemotherapy was around 3 weeks ago. Received radiation therapy 3 COPD 4 inability to swallow and the patient has enteral feeding for nutritional support 5 chronic atrial fibrillation with rapid ventricular response currently on a Cardizem drip for rate control. The patient is on no anticoagulants 6 coronary artery disease with previous coronary intervention and stenting, currently stable 7 diabetes mellitus 8 hypertension 9 hyperlipidemia 10 obstructive sleep apnea noncompliant to CPAP therapy 11 skin cancer that was been resected 12 smoker 13 macular degeneration 14 minimal troponin leak 15 limited emphysematous changes in the right middle lobe and right lower lobe. Pneumonia pneumonia of an aspiration type needs to be considered. Plan Avoid anticoagulants. Cover the patient with IV Zosyn. Monitor for hemoptysis. Bronchoscopy will be needed for an upper and lower airway examination if there is recurrence in the hemoptysis. Hematology and oncology evaluation regarding the details of her head and neck cancer and details of treatment. We'll continue to follow make further recommendations based on her progress. DuoNeb nebulized treatment will be resumed. Continue Pulmicort Respules. Management of atrial fibrillation per cardiology. Currently on a Cardizem drip. Will be transitioned to beta blockers once the rate is under better control. Restart tube feeds.
--- NOTE | 2017-06-21 16:46 | P.HPIM ---
History of Present Illness H&P Date: 06/21/17 Chief Complaint: blood from oral cavity, head/neck cancer Ms. Jorgensen is a very pleasant female pt of Dr. 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 She presented with oropharyngeal mass, seen by Dr. Chase and Dr. Cisneros, ultimately referred to Dr. Hess at [facility]. CT on 01/10/17 revealed 7.4 cm oropharyngeal mass, biopsy on 01/22/17 revealed moderately differentiated squamous cell carcinoma, she had PEG tube placed for nutritional support. She started neoadjuvant carbo and weekly taxol chemotherapy at [facility] with Oncologist Dr. Comer. After 1st she opted for treatment closer to home, she completed 4 cycles 05/17, she has had radiation treatments. Pt and family reported last few days events to me. Pt has had a cough for a few days, then last evening she cough up a copious amount of blood, a large clot , concern was a blood vessel had been eroded and pt was bleeding out so family brought her to ER. She had urgent nasopharyngeal laryngoscopy with Dr. Frazier who did not see any active bleeding, some old blood being coughed up, no gross tumors or friable mass were visualized. Pt continues to have cough, more congested sounding per family, pt denies fever, nausea, vomiting, chest pain, she does not feel her irrregular heart rate or a-fib, no abd pain, PEG is working well, no dysuria, hematuria, diarrhea, constipation, or bleeding, her feet have been swollen for a few days but they are better today , pt gets up with assistance to the bedside commode Review of Systems 10 point ROS is as stated in HPI Past Medical History Past Medical History: Atrial Fibrillation, Coronary Artery Disease (CAD), Cancer , COPD, Diabetes Mellitus, Eye Disorder, GERD/Reflux, Hyperlipidemia, Hypertension, Memory Impairment, Myocardial Infarction ([place]), Pneumonia, Sleep Apnea/CPAP/BIPAP Additional Past Medical History / Comment(s): Morbid obesity, chronic hypoxic respiratory failure, COPD, obstructive sleep apnea noncompliant to CPAP therapy , chronic atrial fibrillation and the patient has failed cardioversion in the past and she has been maintained on long-term anticoagulation she has also episodes of multifocal atrial tachycardia, previous coronary stenting regarding coronary artery disease, hypertension, hyperlipidemia, after losing wt was taken off medications for diabetes mellitus, macular degeneration, dysphagia, nicotine addiction/smoking the patient has been trying to quit smoking by utilization of Chantix, skin cancer involving the neck and the right cheek that was resected. Squamous cell carcinoma moderately differentiated of the right tonsil the patient was treated with chemoradiation therapy. Note that the last Chemo tx 3 weeks ago and has had 15 out of 30 radiation tx so far., Enteral feeding via PEG tube for nutritional support and the patient is nothing by mouth for now. Last Myocardial Infarction Date:: 2009 History of Any Multi-Drug Resistant Organisms: MRSA Date of last positivie culture/infection: 11/21/16 MDRO Source:: Sputum Past Surgical History: Back Surgery, Bladder Surgery, Heart Catheterization With Stent, Hysterectomy Additional Past Surgical History / Comment(s): right hand carpal tunnel release , aug 2016 had a growth removed from her "vocal cords",05/04/17 EGD W/ PEG TUBE, PICC LINE Past Anesthesia/Blood Transfusion Reactions: No Reported Reaction Date of Last Stent Placement:: 2009 Smoking Status: Former smoker - Past Family History Mother Family Medical History: Cancer Additional Family Medical History / Comment(s): lung Brother(s) Family Medical History: Cancer Additional Family Medical History / Comment(s): lung Father Family Medical History: Congestive Heart Failure (CHF) Medications and Allergies Home Medications Medication Instructions Recorded Confirmed Type Aspirin 325 mg PEG/G-TUBE DAILY 04/27/17 06/20/17 History Atorvastatin [Lipitor] 20 mg PEG/G-TUBE HS 04/27/17 06/20/17 History Diltiazem Oral [Cardizem Oral] 30 mg PEG/G-TUBE BID 04/27/17 06/20/17 History Metoprolol Tartrate 25 mg PEG/G-TUBE BID 05/01/17 06/20/17 History ALPRAZolam [Xanax] 0.25 mg PEG/G-TUBE DAILY PRN 06/20/17 06/20/17 History Budesonide [Pulmicort] 0.5 mg INHALATION RT-BID 06/20/17 06/20/17 History Ipratropium-Albuterol Nebulize 3 ml INHALATION RT-Q4H 06/20/17 06/20/17 History [Duoneb 0.5 mg-3 mg/3 ml Soln] Magnesium Oxide [Mag-Ox] 400 mg PEG/G-TUBE BID 06/20/17 06/20/17 History Travoprost [Travatan Z 0.004%] 1 drop RIGHT EYE HS 06/20/17 06/20/17 History fentaNYL 25MCG/HR PATCH [Duragesic 1 patch TRANSDERM Q72H 06/20/17 06/20/17 History 25MCG/HR] Allergies Allergy/AdvReac Type Severity Reaction Status Date / Time ciprofloxacin [From Cipro] Allergy Rash/Hives Verified 06/20/17 12:44 dofetilide [From Tikosyn] Allergy Rash/Hives Verified 06/20/17 12:44 kiwi Allergy Rash/Hives Verified 06/20/17 12:44 naproxen [From Naprosyn] Allergy Itching Verified 06/20/17 12:44 Physical Exam Vitals: Vital Signs Temp Pulse Pulse Resp BP BP Pulse Ox 06/21/17 11:28 98 16 124/76 94 L 06/21/17 08:00 82 16 118/71 92 L 06/21/17 07:36 98 06/21/17 04:00 97.2 F L 125 H 20 119/66 96 06/21/17 00:00 97.3 F L 135 H 20 139/78 94 L 06/20/17 20:00 97.2 F L 153 H 22 133/83 96 06/20/17 18:32 97.6 F 150 H 22 135/55 95 06/20/17 18:00 175 H 26 H 144/65 94 L 06/20/17 17:00 155 H 24 138/85 96 06/20/17 16:34 136 H 14 133/62 98 Intake and Output 06/21/17 06/21/17 06/21/17 06:59 14:59 22:59 Intake Total 962 Output Total 0 Balance 962 Intake: IV 880 Diltiazem 125 mg In 80 Sodium Chloride 0.9% 100 ml @ 5 MG/HR 5 mls/hr IV .Q24H [facility] Rx#:[id number] Sodium Chloride 0.9% 1, 800 000 ml @ 100 mls/hr IV . Q10H [facility] Rx#:[id number] Intake, IV Titration 82 Amount Diltiazem 125 mg In 82 Sodium Chloride 0.9% 100 ml @ 5 MG/HR 5 mls/hr IV .Q24H [facility] Rx#:[id number] Output: Urine 0 Other: Voiding Method Bedside Commode Bedside Commode Weight 67 kg 67 kg Patient Weight 06/22/17 06:59 Weight 67 kg - Constitutional General appearance: average body habitus, cooperative, no acute distress - EENT dried blood noted around mouth Eyes: anicteric sclerae, PERRLA ENT: hearing grossly normal - Neck Neck: no lymphadenopathy - Respiratory Respiratory: bilateral: rales - Cardiovascular Rhythm: irregularly irregular Heart sounds: normal: S1, S2 Abnormal Heart Sounds: systolic murmur foot Peripheral Edema: bilateral: 2+, Pitting - Gastrointestinal PEG insertion small amt of dried drainage noted around tube General gastrointestinal: normal bowel sounds, soft - Integumentary Integumentary: pale - Musculoskeletal Musculoskeletal: generalized weakness, strength equal bilaterally - Psychiatric Psychiatric: A&O x's 3, appropriate affect Results CBC & Chem 7: 06/21/17 06:04 06/21/17 06:04 Labs: Abnormal Lab Results - Last 24 Hours (Table) 06/21/17 06/21/17 Range/Units 06:04 06:04 RBC 3.44 L (3.80-5.40) m/uL Hgb 10.9 L (11.4-16.0) gm/dL MCV 104.8 H D (80.0-100.0) fL MCHC 30.3 L (31.0-37.0) g/dL RDW 19.0 H (11.5-15.5) % Plt Count 119 L (150-450) k/uL Lymphocytes # 0.3 L (1.0-4.8) k/uL BUN 30 H (7-17) mg/dL Creatinine 0.31 L (0.52-1.04) mg/dL Glucose 103 H (74-99) mg/dL AST 44 H (14-36) U/L ALT 127 H (9-52) U/L Alkaline Phosphatase 187 H (38-126) U/L Total Protein 5.1 L (6.3-8.2) g/dL Albumin 2.6 L (3.5-5.0) g/dL Comments: EKG reviewed Operative note reviewed CXR report reviewed CT scan - chest: report reviewed Thrombosis Risk Factor Assmnt - DVT/VTE Prophylaxis DVT/VTE Prophylaxis: Contraindicated - See note (hemoptysis) - Choose All That Apply Any of the Below Risk Factors Present?: Yes Each Factor Represents 1 point: Abnormal pulmonary function (COPD), Obesity ( BMI >25), Serious lung disease incl. pneumonia (< 1month) Other Risk Factors: Yes Each Risk Factor Represents 2 Points: Age 61-74 years, Malignancy Other congenital or acquired thrombophilia - If yes, enter type in comment: No Thrombosis Risk Factor Assessment Total Risk Factor Score: 7 Thrombosis Risk Factor Assessment Level: High Risk Assessment and Plan (1) Hemoptysis Narrative/Plan: Pt has been evaluated by ENT and Pulmonary. She does not appear at this time to have ongoing bleeding, Hgb will be monitored, Pulmonary following and will consider bronch for visualization if hemoptysis persists. Pt is on abx. Status: Acute (2) Atrial fibrillation with RVR Narrative/Plan: Cardiology consulted, medical management at this time. Agree with no anticoagulation at this time. Status: Acute (3) Anemia Narrative/Plan: Daily labs, no transfusion at this time. Status: Chronic (4) Squamous cell carcinoma of head and neck Narrative/Plan: Pt has completed chemo, spoke with Rad/Onc, pt has had trouble tolerating radiation and is currently on a break. Pt appears to have had a good response to treatment at this time. Will consult Rad/Onc for evaluation and recommendations Status: Chronic
[2017-06-21] MEDS: PIPERACILLIN-TAZOBACTAM 3.375 GM in DEXTROSE/WATER 1 50ML.BAG IVPB SCH (17:05)
[2017-06-21] MEDS: MAGNESIUM OXIDE 400 MG TAB PEG/G-TUBE SCH ×2 (19:40→19:55)
[2017-06-21] MEDS: METOPROLOL TARTRATE 25 MG TAB PO SCH ×2 (19:40→19:55)
[2017-06-21] MEDS: ATORVASTATIN 20 MG TAB PEG/G-TUBE SCH (19:55)
[2017-06-21] MEDS: LATANOPROST 0.005% OPHTH DROPS 2.5 ML BTL RIGHT EYE SCH (19:59)
[2017-06-21] MEDS ORDERED: LOSARTAN 50 MG TAB PO STA (22:25)
[2017-06-21] MEDS: DILTIAZEM 125 MG in SODIUM CHLORIDE 0.9% 100 ML IV SCH (23:02)
[2017-06-22] MEDS: PIPERACILLIN-TAZOBACTAM 3.375 GM in DEXTROSE/WATER 1 50ML.BAG IVPB SCH ×3 (00:30→16:41)
[2017-06-22] MEDS: ALPRAZolam 0.25 MG TAB PEG/G-TUBE PRN ×2 (01:15→21:21)
[2017-06-22] MEDS: SODIUM CHLORIDE 0.9% 1,000 ML IV SCH ×3 (04:46→16:35)
[2017-06-22] MEDS: IPRATROPIUM-ALBUTEROL 3 ML NEB INHALATION SCH ×5 (04:54→18:34)
[2017-06-22] MEDS: BUDESONIDE 0.5 MG/2 ML NEBU INHALATION SCH ×2 (07:27→18:34)
[2017-06-22] MEDS ORDERED: LOSARTAN 50 MG TAB PO SCH (09:00)
--- NOTE | 2017-06-22 09:03 | P.PN ---
Subjective Principal diagnosis: Paroxysmal A. 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 The patient is also has a PEG tube. She was admitted to the hospital a few weeks ago with A. fib with RVR because she was not taking her medication because the PIC tube was not functioning normally. She was discharged from the hospital at that point in stable medical condition. She has been experiencing coughing blood and she was not feeling well for the last few days. Did not have any symptoms of chest pain. She has what it seems to be chronic shortness of breath according to her is unchanged compared to before. We get involved in her care because she is in A. fib with RVR. She stated that she was taking all her medication through the PEG tube. On follow-up with the patient today on June 222016, she continues to be in A. fib with a slightly uncontrolled heart rates. She is on Cardizem at 5 mg per hour. I am going to increase the dose of metoprolol by mouth and wean her from the Cardizem IV. Objective - Vital Signs Vital signs: Vital Signs Temp 97.4 F L 06/22/17 04:00 Pulse 96 06/22/17 07:40 Resp 20 06/22/17 04:00 BP 121/72 06/22/17 04:00 Pulse Ox 95 06/22/17 07:28 Intake & Output 06/21/17 06/22/17 06/22/17 18:59 06:59 18:59 Intake Total 360 Balance 360 Weight 67 kg 68.5 kg Intake: Tube Feeding 360 Other: Voiding Method Bedside Commode Bedside Commode # Voids 4 - Constitutional General appearance: Present: no acute distress - Labs CBC & Chem 7: 06/21/17 06:04 06/21/17 06:04 Assessment and Plan Plan: This is a pleasant 72-year-old female patient with long-standing persistent atrial fibrillation as well as history of laryngeal cancer currently under chemotherapy radiation therapy was admitted to the hospital with coughing up blood. Currently the patient is in A. fib with RVR. She is on Cardizem IV. She is not a candidate to receive any kind of anticoagulation. We will adjust the oral metoprolol and try to wean the patient from the Cardizem and drip. She just underwent an echocardiogram recently there is no need to repeat another echo on her at this point. We'll continue following up with her.
[2017-06-22 09:08] LABS: Anisocytosis Slight; Basophils % (A) 0 %; CH 31.4; CHCM 29.6; Eosinophils # (A) 0.1 k/uL (0-0.7); Eosinophils % (A) 1 %; HCT 36.1 % (34.0-46.0); HDW 2.69; HGB 10.9 gm/dL (11.4-16.0); Hypochromasia Marked; Luc # (Auto) 0.03; Luc % (Auto) 0; Lymphocytes # (A) 0.3 k/uL (1.0-4.8); Lymphocytes % (A) 4 %; MCH 32.2 pg (25.0-35.0); MCHC 30.3 g/dL (31.0-37.0); MCV 106.3 fL (80.0-100.0); Macrocytosis Marked; Mean Platelet Volume 7.9; Monocytes # (A) 0.3 k/uL (0-1.0); Monocytes % (A) 3 %; Neutrophils # (A) 7.4 k/uL (1.3-7.7); Neutrophils % (A) 92 %; RBC 3.39 m/uL (3.80-5.40); WBC 8.1 k/uL (3.8-10.6); WBC (Perox) 8.45
[2017-06-22] MEDS: METOPROLOL TARTRATE 25 MG TAB PO SCH ×2 (09:08→20:36)
[2017-06-22] MEDS: MAGNESIUM OXIDE 400 MG TAB PEG/G-TUBE SCH ×2 (09:09→21:21)
[2017-06-22] MEDS: METOPROLOL TARTRATE 50 MG TAB PO SCH ×2 (09:11→16:41)
--- NOTE | 2017-06-22 13:05 | P.PN ---
Subjective Principal diagnosis: hemoptysis Objective - Vital Signs Vital signs: Vital Signs Temp 97.4 F L 06/22/17 04:00 Pulse 84 06/22/17 11:20 Resp 16 06/22/17 08:00 BP 120/82 06/22/17 08:00 Pulse Ox 94 L 06/22/17 08:00 Intake & Output 06/21/17 06/22/17 06/22/17 18:59 06:59 18:59 Intake Total 360 Balance 360 Weight 67 kg 68.5 kg 68.5 kg Intake: Tube Feeding 360 Other: Voiding Method Bedside Commode Bedside Commode Bedside Commode # Voids 4 - Constitutional Constitutional Comment(s): pale General appearance: Present: average body habitus, cooperative - Respiratory Respiratory: bilateral: rales (severity less then yesterday) - Cardiovascular Heart sounds: normal: S1, S2 - Peripheral edema leg Peripheral Edema: bilateral: Trace (improved) - Gastrointestinal General gastrointestinal: Present: normal bowel sounds, soft. Absent: absent bowel sounds, decreased bowel sounds, distended, hepatomegaly, hyperactive bowel sounds, organomegaly, rigid, scaphoid, splenomegaly, tenderness, umbilical hernia, ventral hernia - Integumentary Integumentary: Present: pale - Musculoskeletal Musculoskeletal: Present: generalized weakness - Psychiatric Psychiatric Comment(s): Pt did not answer all my questions appropriately, lethargic, aroused to voice and touch - Labs CBC & Chem 7: 06/22/17 08:39 06/21/17 06:04 Labs: Abnormal Lab Results - Last 24 Hours (Table) 06/22/17 Range/Units 08:39 RBC 3.39 L (3.80-5.40) m/uL Hgb 10.9 L (11.4-16.0) gm/dL MCV 106.3 H (80.0-100.0) fL MCHC 30.3 L (31.0-37.0) g/dL RDW 18.0 H (11.5-15.5) % Plt Count 117 L (150-450) k/uL Lymphocytes # 0.3 L (1.0-4.8) k/uL Assessment and Plan (1) Hemoptysis Narrative/Plan: No documented hemoptysis overnight or today. Gilby that possibly that irritation in the throat acutely bled with aspiration of the blood. ENT visualized the nose/throat/larynx with no acute bleeding noted. Pulmonary following and prepared to visualize lungs if hemoptysis persists. Status: Acute (2) Atrial fibrillation with RVR Narrative/Plan: Cardiology working to control heart rhythm. If unable to be medically managed pt will need anticoagulation therapy. We await Cardiology recommendations. Status: Acute (3) Anemia Narrative/Plan: Stable Hgb today, no transfusion needed Status: Chronic (4) Squamous cell carcinoma of head and neck Narrative/Plan: Pt has completed chemo. Rad/Onc consulted for evaluation of pt for continued therapy. Pt performance status is rather poor, ECOG 3. Will consult PT/OT. Pt family currently has been able to provide pt with care at home. Will ask Social Work to see family and evaluate any needs they may have. Status: Chronic
--- NOTE | 2017-06-22 14:41 | P.PN ---
Subjective Ms. Jorgensen is a very pleasant female pt of Dr. 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 She presented with oropharyngeal mass, seen by Dr. Chase and Dr. Cisneros, ultimately referred to Dr. Hess at [facility]. CT on 01/10/17 revealed 7.4 cm oropharyngeal mass, biopsy on 01/22/17 revealed moderately differentiated squamous cell carcinoma, she had PEG tube placed for nutritional support. She started neoadjuvant carbo and weekly taxol chemotherapy at [facility] with Oncologist Dr. Comer. After 1st she opted for treatment closer to home, she completed 4 cycles 05/17, she has had radiation treatments. Pt has had a cough for a few days, then last evening she cough up a copious amount of blood, a large clot, concern was a blood vessel had been eroded and pt was bleeding out so family brought her to ER. She had urgent nasopharyngeal laryngoscopy with Dr. Frazier who did not see any active bleeding, some old blood being coughed up, no gross tumors or friable mass were visualized. Pt continues to have cough, more congested sounding per family, pt denies fever , nausea, vomiting, chest pain, she does not feel her irrregular heart rate or a -fib, no abd pain, PEG is working well, no dysuria, hematuria, diarrhea, constipation, or bleeding, her feet have been swollen for a few days but they are better today, pt gets up with assistance to the bedside commode On 06/22/2017 the patient is being seen in follow-up. The patient is still still lethargic and quite weak. She is quite toxic from the systemic chemotherapy that was given to her last 3 weeks ago. She is not cough and blood and this has essentially subsided. She is on a Cardizem drip for rate control the rate of 5 mg an hour. She is on no anticoagulants. She is receiving enteral feeding for nutritional support through a PEG tube. She is also on IV Zosyn for a potential right lower lobe/right middle lobe pneumonia which can be of an aspiration type. No fever. No chills. No leukocytosis. No other complaints otherwise for now. She is resting comfortably in bed. Objective - Vital Signs Vital signs: Vital Signs Temp 97.4 F L 06/22/17 04:00 Pulse 149 H 06/22/17 12:00 Resp 16 06/22/17 08:00 BP 128/89 06/22/17 12:00 Pulse Ox 94 L 06/22/17 12:00 Intake & Output 06/21/17 06/22/17 06/22/17 18:59 06:59 18:59 Intake Total 360 Balance 360 Weight 67 kg 68.5 kg 68.5 kg Intake: Tube Feeding 360 Other: Voiding Method Bedside Commode Bedside Commode Bedside Commode # Voids 4 - Exam Gen. appearance the patient has lost her headaches to systemic chemotherapy. His calm and comfortable. Resting comfortably in bed. She is a bit pale. Head is atraumatic normocephalic and the patient has developed her last due to systemic chemotherapy. Neck is supple. There is some fullness over the right submandibular area. No direct tenderness. No rebound tenderness. No guarding. There is skin changes related to radiation therapy over the right neck area. Lung sounds are diminished bilaterally. Scattered rhonchi. Scattered crackles at lung bases bilaterally. Heart sounds are irregular, positive S1-S2 and there is no significant murmurs appreciated.Abdominal exam revealed normal bowel sounds. The abdomen was soft, non-tender, and without masses, organomegaly, or appreciable enlargement of the abdominal aorta. Active site is clean and intact.Examination of the extremities revealed easily palpable radial, femoral and pedal pulses. There was no cyanosis, clubbing or edema. Neurologically the patient is awake and alert and following commands. No focal neurological deficit. Skin examination is negative for any ulcers or wounds or cellulitis. Skeletal examination showed no evidence of any arthritis or joint deformities. - Labs CBC & Chem 7: 06/22/17 08:39 06/21/17 06:04 Labs: Abnormal Lab Results - Last 24 Hours (Table) 06/22/17 Range/Units 08:39 RBC 3.39 L (3.80-5.40) m/uL Hgb 10.9 L (11.4-16.0) gm/dL MCV 106.3 H (80.0-100.0) fL MCHC 30.3 L (31.0-37.0) g/dL RDW 18.0 H (11.5-15.5) % Plt Count 117 L (150-450) k/uL Lymphocytes # 0.3 L (1.0-4.8) k/uL Assessment and Plan Plan: Assessment 1 hemoptysis. The suspected source of bleeding is most likely the canister dislocation the right tonsillar area nontender the patient has a squamous cell carcinoma of the tonsil and the patient is being treated with a combination of chemoradiation therapy. ENT evaluation showed no evidence of any acute bleed. There was old retained blood within the posterior oropharynx and hypopharynx. I doubt a lower pulmonary source of bleeding. Nevertheless the bronchoscopy will be considered if the hemoptysis continues. ENT evaluation has been completed On 06/22/2017 the patient's hemoptysis subsided and the patient is not coughing any further blood. No significant rest of the stress pH is on IV Zosyn for empiric antibiotic coverage regarding potential right lower lobe/right middle lobe aspiration pneumonia. No fever. No chills. Hemodynamically stable. On no anticoagulants. 2 moderate to differentiated squamous cell carcinoma of the tonsils. The patient is being treated with a combination of chemoradiation therapy. Received carboplatinum and Taxol last chemotherapy was around 3 weeks ago. Received radiation therapy 3 COPD 4 inability to swallow and the patient has enteral feeding for nutritional support 5 chronic atrial fibrillation with rapid ventricular response currently on a Cardizem drip for rate control. The patient is on no anticoagulants 6 coronary artery disease with previous coronary intervention and stenting, currently stable 7 diabetes mellitus 8 hypertension 9 hyperlipidemia 10 obstructive sleep apnea noncompliant to CPAP therapy 11 skin cancer that was been resected 12 smoker 13 macular degeneration 14 minimal troponin leak 15 limited emphysematous changes in the right middle lobe and right lower lobe. Pneumonia pneumonia of an aspiration type needs to be considered. Plan Treated IV Zosyn. Aspiration precautions. Watch for any further episodes of hemoptysis. No plans to bronchoscope this patient as long as her hemoptysis has subsided. Performance status is poor. Consult PTOT. Continue enteral feeding for nutritional support. We'll follow.
--- NOTE | 2017-06-22 16:12 | P.CONS ---
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 CT at diagnosis on 01/10/17 revealed 7.4 cm oropharyngeal mass incasing the right external carotid artery >180 degrees. Also noted were bilateral cervical nodes. She required PEG tube placement at diagnosis secondary to severe dysphagia and nutritional deficiencies. She has had occasional hemoptysis for 6 months that has waxed and waned. Based on her poor performance status it was recommended she undergo sequential chemoradiation. She received 4 cycles of carboplatin/taxol q3 weekly under the care of Dr. Harper with a good initial response. External beam radiation was started on 05/30/17. She has noticed continued reduction in her tumor burden and mild improvement in her ability to swallow. Overall she continues to be completly G tube dependent. She is lethargic. She did have 3 days complaints of hemoptysis which she describes as small initially but later larger volume. In office flexible laryngoscopy identified no source of bleeding. We therefore recommended she present to the emergency department for additional care. She did undergo repeat flexible laryngoscopy under the care of Dr. Frazier who did not see any active bleeding, gross tumor, or visualized source of hemoptysis. He bledding has resolved on todays evaluation. She is on a Cardizem drip for rate control the rate of 5 mg an hour. Review of Systems Constitutional: Reports chronic pain, Reports daytime sleepiness, Reports lethargy, Reports weight loss Cardiovascular: Reports decreased exercise tolerance, Reports dyspnea on exertion, Reports edema Respiratory: Reports congestion, Reports cough Past Medical History Past Medical History: Atrial Fibrillation, Coronary Artery Disease (CAD), Cancer , COPD, Diabetes Mellitus, Eye Disorder, GERD/Reflux, Hyperlipidemia, Hypertension, Memory Impairment, Myocardial Infarction ([place]), Pneumonia, Sleep Apnea/CPAP/BIPAP Additional Past Medical History / Comment(s): Morbid obesity, chronic hypoxic respiratory failure, COPD, obstructive sleep apnea noncompliant to CPAP therapy , chronic atrial fibrillation and the patient has failed cardioversion in the past and she has been maintained on long-term anticoagulation she has also episodes of multifocal atrial tachycardia, previous coronary stenting regarding coronary artery disease, hypertension, hyperlipidemia, after losing wt was taken off medications for diabetes mellitus, macular degeneration, dysphagia, nicotine addiction/smoking the patient has been trying to quit smoking by utilization of Chantix, skin cancer involving the neck and the right cheek that was resected. Squamous cell carcinoma moderately differentiated of the right tonsil the patient was treated with chemoradiation therapy. Note that the last Chemo tx 3 weeks ago and has had 15 out of 30 radiation tx so far., Enteral feeding via PEG tube for nutritional support and the patient is nothing by mouth for now. Last Myocardial Infarction Date:: 2009 History of Any Multi-Drug Resistant Organisms: MRSA Year Discovered:: 11/21/16 MDRO Source:: Sputum Past Surgical History: Back Surgery, Bladder Surgery, Heart Catheterization With Stent, Hysterectomy Additional Past Surgical History / Comment(s): right hand carpal tunnel release , aug 2016 had a growth removed from her "vocal cords",05/04/17 EGD W/ PEG TUBE, PICC LINE Past Anesthesia/Blood Transfusion Reactions: No Reported Reaction Date of Last Stent Placement:: 2009 Smoking Status: Former smoker - Past Family History Mother Family Medical History: Cancer Additional Family Medical History / Comment(s): lung Brother(s) Family Medical History: Cancer Additional Family Medical History / Comment(s): lung Father Family Medical History: Congestive Heart Failure (CHF) Medications and Allergies Home Medications Medication Instructions Recorded Confirmed Type Aspirin 325 mg PEG/G-TUBE DAILY 04/27/17 06/20/17 History Atorvastatin [Lipitor] 20 mg PEG/G-TUBE HS 04/27/17 06/20/17 History Diltiazem Oral [Cardizem Oral] 30 mg PEG/G-TUBE BID 04/27/17 06/20/17 History Metoprolol Tartrate 25 mg PEG/G-TUBE BID 05/01/17 06/20/17 History ALPRAZolam [Xanax] 0.25 mg PEG/G-TUBE DAILY PRN 06/20/17 06/20/17 History Budesonide [Pulmicort] 0.5 mg INHALATION RT-BID 06/20/17 06/20/17 History Ipratropium-Albuterol Nebulize 3 ml INHALATION RT-Q4H 06/20/17 06/20/17 History [Duoneb 0.5 mg-3 mg/3 ml Soln] Magnesium Oxide [Mag-Ox] 400 mg PEG/G-TUBE BID 06/20/17 06/20/17 History Travoprost [Travatan Z 0.004%] 1 drop RIGHT EYE HS 06/20/17 06/20/17 History fentaNYL 25MCG/HR PATCH [Duragesic 1 patch TRANSDERM Q72H 06/20/17 06/20/17 History 25MCG/HR] Allergies Allergy/AdvReac Type Severity Reaction Status Date / Time ciprofloxacin [From Cipro] Allergy Rash/Hives Verified 06/20/17 12:44 dofetilide [From Tikosyn] Allergy Rash/Hives Verified 06/20/17 12:44 kiwi Allergy Rash/Hives Verified 06/20/17 12:44 naproxen [From Naprosyn] Allergy Itching Verified 06/20/17 12:44 Physical Exam Vitals: Vital Signs Temp Pulse Pulse Resp BP Pulse Ox 06/22/17 12:00 149 H 128/89 94 L 06/22/17 11:20 84 06/22/17 11:05 84 06/22/17 08:00 126 H 16 120/82 94 L 06/22/17 07:40 96 06/22/17 07:28 88 95 06/22/17 04:00 97.4 F L 85 20 121/72 95 06/22/17 00:00 98 F 123 H 20 131/77 98 06/21/17 20:11 97.3 F L 134 H 18 137/84 97 06/21/17 16:00 16 Intake and Output 06/22/17 06/22/17 06/22/17 06:59 14:59 22:59 Intake Total 360 200 Balance 360 200 Intake: Tube Feeding 360 200 Other: Voiding Method Bedside Commode Bedside Commode Weight 68.5 kg 68.5 kg Patient Weight 06/23/17 06:59 Weight 68.5 kg - Constitutional General appearance: obese - EENT Eyes: EOMI ENT: pharyngeal erythema - Neck Neck: normal ROM - Respiratory Respiratory: bilateral: CTA Results CBC & Chem 7: 06/22/17 08:39 06/21/17 06:04 Labs: Abnormal Lab Results - Last 24 Hours (Table) 09/22/17 Range/Units 08:39 RBC 3.39 L (3.80-5.40) m/uL Hgb 10.9 L (11.4-16.0) gm/dL MCV 106.3 H (80.0-100.0) fL MCHC 30.3 L (31.0-37.0) g/dL RDW 18.0 H (11.5-15.5) % Plt Count 117 L (150-450) k/uL Lymphocytes # 0.3 L (1.0-4.8) k/uL CT scan - abdomen: image reviewed CT scan - chest: image reviewed CT Scan - head: image reviewed CT scan - pelvis: image reviewed Assessment and Plan Plan: 1) Hemoptysis-Currently resolved with stable hgb. No visualized active source. Darleen has likely received adequate radiation dose to palliate bleeding if tumor related. Pulm considering bronchoscopy if large volume bleeding occurs again. IV zosyn. Aspiration precautions. 2) Locally advanced head and neck cancer- Patient undergoing sequential therapy. Will hold radiation until Darleen is an outpatient. 3) Nutrition- 6 cans/day of Jevity 1.5 to provide 2160 kcal daily. 4) Atrial fibrilattion with RVR- Patient continues on cardiazem drip for rate control. We will continue to follow. Will restart radiation therapy as an outpatient.
[2017-06-22] MEDS: LATANOPROST 0.005% OPHTH DROPS 2.5 ML BTL RIGHT EYE SCH (21:20)
[2017-06-22] MEDS: ATORVASTATIN 20 MG TAB PEG/G-TUBE SCH (21:21)
[2017-06-23] MEDS: IPRATROPIUM-ALBUTEROL 3 ML NEB INHALATION SCH ×8 (00:05→23:59)
[2017-06-23] MEDS: DILTIAZEM 125 MG in SODIUM CHLORIDE 0.9% 100 ML IV SCH ×4 (00:43→12:34)
[2017-06-23] MEDS: PIPERACILLIN-TAZOBACTAM 3.375 GM in DEXTROSE/WATER 1 50ML.BAG IVPB SCH ×3 (00:56→16:23)
[2017-06-23] MEDS: ALPRAZolam 0.25 MG TAB PEG/G-TUBE PRN ×2 (04:46→22:02)
[2017-06-23] MEDS: SODIUM CHLORIDE 0.9% 1,000 ML IV SCH ×4 (04:55→21:48)
[2017-06-23 06:18] LABS: Anisocytosis Slight; Basophils % (A) 1 %; CH 31.9; CHCM 29.8; Eosinophils # (A) 0.1 k/uL (0-0.7); Eosinophils % (A) 1 %; HCT 35.3 % (34.0-46.0); HDW 2.66; HGB 10.9 gm/dL (11.4-16.0); Hypochromasia Marked; Luc # (Auto) 0.08; Luc % (Auto) 1; Lymphocytes # (A) 0.4 k/uL (1.0-4.8); Lymphocytes % (A) 6 %; MCH 33.1 pg (25.0-35.0); MCHC 30.7 g/dL (31.0-37.0); MCV 107.6 fL (80.0-100.0); Macrocytosis Marked; Mean Platelet Volume 9.4; Monocytes # (A) 0.5 k/uL (0-1.0); Monocytes % (A) 7 %; Neutrophils # (A) 5.8 k/uL (1.3-7.7); Neutrophils % (A) 85 %; RBC 3.28 m/uL (3.80-5.40); RDW 18.9 % (11.5-15.5); WBC 6.8 k/uL (3.8-10.6)
[2017-06-23 06:39] LABS: Manual Review Performed
[2017-06-23] MEDS: BUDESONIDE 0.5 MG/2 ML NEBU INHALATION SCH ×2 (08:10→20:31)
[2017-06-23] MEDS ORDERED: FUROSEMIDE 10 MG/ML 4 ML VIAL IV STA (09:37)
--- NOTE | 2017-06-23 09:43 | P.PN ---
Subjective The patient was more short of breath, complaining of orthopnea. She appeared to have some audible upper airway congestion Objective - Vital Signs Vital signs: Vital Signs Temp 97.9 F 06/23/17 04:00 Pulse 96 06/23/17 08:09 Resp 22 06/23/17 04:00 BP 134/89 06/23/17 04:00 Pulse Ox 97 06/23/17 07:54 Intake & Output 06/22/17 06/23/17 06/23/17 18:59 06:59 18:59 Intake Total 200 560 Balance 200 560 Weight 68.5 kg 70 kg Intake: Tube Feeding 200 560 Other: Voiding Method Bedside Commode - Constitutional General appearance: Present: mild distress - EENT Eyes: Present: EOMI, PERRLA ENT: Present: pharyngeal erythema - Neck Details: Positive JVD - Respiratory Respiratory: bilateral: rales - Cardiovascular Rhythm: irregularly irregular Heart sounds: normal: S1, S2 - Gastrointestinal General gastrointestinal: Present: normal bowel sounds, soft - Integumentary Integumentary: Present: normal - Neurologic Neurologic: Present: CNII-XII intact - Musculoskeletal Musculoskeletal: Present: generalized weakness - Psychiatric Psychiatric: Present: A&O x's 3, appropriate affect - Labs CBC & Chem 7: 06/23/17 05:32 06/21/17 06:04 Labs: Abnormal Lab Results - Last 24 Hours (Table) 06/23/17 Range/Units 05:32 RBC 3.28 L (3.80-5.40) m/uL Hgb 10.9 L (11.4-16.0) gm/dL MCV 107.6 H (80.0-100.0) fL MCHC 30.7 L (31.0-37.0) g/dL RDW 18.9 H (11.5-15.5) % Plt Count 107 L (150-450) k/uL Lymphocytes # 0.4 L (1.0-4.8) k/uL Assessment and Plan (1) SOB (shortness of breath) Narrative/Plan: This is significantly increased from baseline today. Physical exam is consistent with fluid overload. IV fluids will be decreased to KVO. She will receive IV Lasix. Check chest x-ray. Continue IV Lasix, over the next couple of days with close monitoring of electrolytes. Status: Acute (2) Hemoptysis Narrative/Plan: This has not recurred, and was felt to have occurred due to bleeding from the tumor site followed by some aspiration into the airways. Hemoglobin is quite stable. Continue to monitor Status: Acute (3) Atrial fibrillation with RVR Narrative/Plan: The patient continues to be in A. fib, with rate control. She is currently on Cardizem drip. Case discussed with cardiology. They will will make a decision about the weaning her off and changing her to oral metoprolol depending on her clinical status Status: Acute (4) Throat cancer Narrative/Plan: The patient has been seen by radiation oncology. She will resume radiation likely next week Status: Acute
[2017-06-23] MEDS: MAGNESIUM OXIDE 400 MG TAB PEG/G-TUBE SCH ×2 (09:50→21:49)
[2017-06-23] MEDS: METOPROLOL TARTRATE 50 MG TAB PO SCH ×3 (09:50→21:49)
--- NOTE | 2017-06-23 11:23 | P.PN ---
Subjective Principal diagnosis: Paroxysmal A. 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 The patient is also has a PEG tube. She was admitted to the hospital a few weeks ago with A. fib with RVR because she was not taking her medication because the PIC tube was not functioning normally. She was discharged from the hospital at that point in stable medical condition. She has been experiencing coughing blood and she was not feeling well for the last few days. Did not have any symptoms of chest pain. She has what it seems to be chronic shortness of breath according to her is unchanged compared to before. We get involved in her care because she is in A. fib with RVR. She stated that she was taking all her medication through the PEG tube. On follow-up with the patient today on June [id number], she continues to be in A. fib with RVR. Currently she is on Cardizem IV at 3 to of 10 mg per hour. Beside that she is more short of breath and she still retaining fluids. She was started on Lasix IV. Chest x-ray also was ordered. I will increase the dose of metoprolol to 50 mg by mouth 3 times a day. Objective - Vital Signs Vital signs: Vital Signs Temp 98.2 F 06/23/17 09:30 Pulse 120 H 06/23/17 09:30 Resp 20 06/23/17 09:30 BP 148/95 06/23/17 09:30 Pulse Ox 92 L 06/23/17 09:30 Intake & Output 06/22/17 06/23/17 06/23/17 18:59 06:59 18:59 Intake Total 200 560 48.667 Balance 200 560 48.667 Weight 68.5 kg 70 kg Intake: Intake, IV Titration 48.667 Amount Diltiazem 125 mg In 48.667 Sodium Chloride 0.9% 100 ml @ 10 MG/HR 10 mls/hr IV .[id number] REPLACED BY [facility] Rx#: [id number] Tube Feeding 200 560 Other: Voiding Method Bedside Commode - Constitutional General appearance: Present: no acute distress - Respiratory Respiratory: bilateral: rales - Cardiovascular Rhythm: irregularly irregular Heart sounds: normal: S1, S2 - Labs CBC & Chem 7: 06/23/17 05:32 06/21/17 06:04 Labs: Abnormal Lab Results - Last 24 Hours (Table) 06/23/17 Range/Units 05:32 RBC 3.28 L (3.80-5.40) m/uL Hgb 10.9 L (11.4-16.0) gm/dL MCV 107.6 H (80.0-100.0) fL MCHC 30.7 L (31.0-37.0) g/dL RDW 18.9 H (11.5-15.5) % Plt Count 107 L (150-450) k/uL Lymphocytes # 0.4 L (1.0-4.8) k/uL Assessment and Plan Plan: This is a pleasant 72-year-old female patient with long-standing persistent atrial fibrillation as well as history of laryngeal cancer currently under chemotherapy radiation therapy was admitted to the hospital with coughing up blood. The patient continues to be in A. fib with RVR. I would increase the dose of metoprolol to 50 mg by mouth 3 times a day and continue the Cardizem IV. Beside that she seems to be fluid overloaded and she was started on Lasix IV. Chest x-ray was ordered and will follow-up with that.
[2017-06-23] MEDS ORDERED: guaiFENesin-DM 100-10MG/5ML 10 ML CUP PO PRN (11:25)
--- NOTE | 2017-06-23 12:08 | P.PN ---
Subjective Ms. Jorgensen is a very pleasant female pt of Dr. 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 She presented with oropharyngeal mass, seen by Dr. Chase and Dr. Cisneros, ultimately referred to Dr. Hess at [facility]. CT on 01/10/17 revealed 7.4 cm oropharyngeal mass, biopsy on 01/22/17 revealed moderately differentiated squamous cell carcinoma, she had PEG tube placed for nutritional support. She started neoadjuvant carbo and weekly taxol chemotherapy at [facility] with Oncologist Dr. Comer. After 1st she opted for treatment closer to home, she completed 4 cycles 05/17, she has had radiation treatments. Pt has had a cough for a few days, then last evening she cough up a copious amount of blood, a large clot, concern was a blood vessel had been eroded and pt was bleeding out so family brought her to ER. She had urgent nasopharyngeal laryngoscopy with Dr. Frazier who did not see any active bleeding, some old blood being coughed up, no gross tumors or friable mass were visualized. Pt continues to have cough, more congested sounding per family, pt denies fever , nausea, vomiting, chest pain, she does not feel her irrregular heart rate or a -fib, no abd pain, PEG is working well, no dysuria, hematuria, diarrhea, constipation, or bleeding, her feet have been swollen for a few days but they are better today, pt gets up with assistance to the bedside commode On 06/22/2017 the patient is being seen in follow-up. The patient is still still lethargic and quite weak. She is quite toxic from the systemic chemotherapy that was given to her last 3 weeks ago. She is not cough and blood and this has essentially subsided. She is on a Cardizem drip for rate control the rate of 5 mg an hour. She is on no anticoagulants. She is receiving enteral feeding for nutritional support through a PEG tube. She is also on IV Zosyn for a potential right lower lobe/right middle lobe pneumonia which can be of an aspiration type. No fever. No chills. No leukocytosis. No other complaints otherwise for now. She is resting comfortably in bed. On 06/23/2017 the patient is being seen for a follow-up. She is more short of breath compared to yesterday. She is having labored breathing. Minimal congested cough. She is unable to bring up any sputum. Very weak and lethargic and still suffering from toxicity of systemic chemotherapy. Chest x- ray was done and it showed development of bibasilar pulmonary ventilator and small effusions. As such, the patient was given a dose of Lasix 40 mg IV push. She started diuresing and 40 B also inserted. She is still on a Cardizem drip for rate control. She is on no anticoagulants. No active hemoptysis at this point. Still on IV Zosyn regarding possibility of bibasilar pneumonia. Condition is obviously worse compared to yesterday. The patient is quite lethargic. She remains to have a low white count of 6.8. Hemoglobin stable at 10.9 and there is no evidence of any acute bleeding at this point. Objective - Vital Signs Vital signs: Vital Signs Temp 98.2 F 06/23/17 09:30 Pulse 112 H 06/23/17 11:43 Resp 20 06/23/17 09:30 BP 148/95 06/23/17 09:30 Pulse Ox 92 L 06/23/17 09:30 Intake & Output 06/22/17 06/23/17 06/23/17 18:59 06:59 18:59 Intake Total 200 560 48.667 Balance 200 560 48.667 Weight 68.5 kg 70 kg Intake: Intake, IV Titration 48.667 Amount Diltiazem 125 mg In 48.667 Sodium Chloride 0.9% 100 ml @ 10 MG/HR 10 mls/hr IV .[id number] [facility] Rx#: [id number] Tube Feeding 200 560 Other: Voiding Method Bedside Commode Bedside Commode Bedpan - Exam Gen. appearance the patient has lost her headaches to systemic chemotherapy. The patient is in mild degree of respiratory distress. She is a bit restless in bed. Not using accessory muscles of breathing. She is a bit pale. Head is atraumatic normocephalic and the patient has developed her last due to systemic chemotherapy. Neck is supple. There is some fullness over the right submandibular area. No direct tenderness. No rebound tenderness. No guarding. There is skin changes related to radiation therapy over the right neck area. Lung sounds are diminished bilaterally. Scattered rhonchi. Scattered crackles at lung bases bilaterally. Heart sounds are irregular, positive S1-S2 and there is no significant murmurs appreciated.Abdominal exam revealed normal bowel sounds. The abdomen was soft, non-tender, and without masses, organomegaly, or appreciable enlargement of the abdominal aorta. Active site is clean and intact.Examination of the extremities revealed easily palpable radial, femoral and pedal pulses. There was no cyanosis, clubbing or edema. Neurologically the patient is awake and alert and following commands. No focal neurological deficit. Skin examination is negative for any ulcers or wounds or cellulitis. Skeletal examination showed no evidence of any arthritis or joint deformities. - Labs CBC & Chem 7: 06/23/17 05:32 06/21/17 06:04 Labs: Abnormal Lab Results - Last 24 Hours (Table) 06/23/17 Range/Units 05:32 RBC 3.28 L (3.80-5.40) m/uL Hgb 10.9 L (11.4-16.0) gm/dL MCV 107.6 H (80.0-100.0) fL MCHC 30.7 L (31.0-37.0) g/dL RDW 18.9 H (11.5-15.5) % Plt Count 107 L (150-450) k/uL Lymphocytes # 0.4 L (1.0-4.8) k/uL Assessment and Plan Plan: Assessment 1 hemoptysis. The suspected source of bleeding is most likely the canister dislocation the right tonsillar area nontender the patient has a squamous cell carcinoma of the tonsil and the patient is being treated with a combination of chemoradiation therapy. ENT evaluation showed no evidence of any acute bleed. There was old retained blood within the posterior oropharynx and hypopharynx. I doubt a lower pulmonary source of bleeding. Nevertheless the bronchoscopy will be considered if the hemoptysis continues. ENT evaluation has been completed On 06/22/2017 the patient's hemoptysis subsided and the patient is not coughing any further blood. No significant rest of the stress pH is on IV Zosyn for empiric antibiotic coverage regarding potential right lower lobe/right middle lobe aspiration pneumonia. No fever. No chills. Hemodynamically stable. On no anticoagulants. On 06/23/2017 the patient's hemoptysis has subsided and the patient is not having any active hemoptysis at this point. 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 The patient is being treated with a combination of chemoradiation therapy. Received carboplatinum and Taxol last chemotherapy was around 3 weeks ago. Received radiation therapy 3 COPD 4 worsening shortness of breath with development of new bibasilar pulmonary infiltrates/atelectasis. Rule out fluid overload/pulmonary edema. Rule out bibasilar pneumonia. Patient was given a dose of Lasix 40 mg IV push. A Hopper catheter was inserted. We're monitoring her progress. Chest x-ray from today was reviewed. 5 chronic atrial fibrillation with rapid ventricular response currently on a Cardizem drip for rate control. The patient is on no anticoagulants 6 coronary artery disease with previous coronary intervention and stenting, currently stable 7 diabetes mellitus 8 hypertension 9 hyperlipidemia 10 obstructive sleep apnea noncompliant to CPAP therapy 11 skin cancer that was been resected 12 smoker 13 macular degeneration 14 minimal troponin leak 15 limited emphysematous changes in the right middle lobe and right lower lobe. Pneumonia pneumonia of an aspiration type needs to be considered. 16 inability to swallow and the patient has enteral feeding for nutritional support Plan Keep the patient nothing by mouth. Enterofeeding order for nutritional support. Proceed with Lasix. Incentive Hopper catheter. Monitor progress. May need to get transferred to the intensive care unit if there is any worsening in her shortness of breath. Repeat chest x-ray in the morning. She' ll follow.
--- NOTE | 2017-06-23 12:48 | XR ---
EXAMINATION TYPE: XR chest 1V portable DATE OF EXAM: 06/23/2017 HISTORY: Shortness of breath. REFERENCE: Previous study dated 06/20/2017. FINDINGS: A MediPort is in place on the right. Its tip is in the superior vena cava. The heart is enlarged. There is vascular congestion and interstitial change suggestive of congestive heart failure. There is bibasilar airspace disease which may represent pneumonia or confluent edema. There are bilateral effusions. IMPRESSION: 1. FINDINGS CONSISTENT WITH CONGESTIVE HEART FAILURE. 2. SMALL, BILATERAL EFFUSIONS. 3. BIBASILAR AIRSPACE DISEASE.
[2017-06-23] MEDS: FUROSEMIDE 10 MG/ML 2 ML VIAL IV SCH (16:23)
[2017-06-23] MEDS: LATANOPROST 0.005% OPHTH DROPS 2.5 ML BTL RIGHT EYE SCH (21:49)
[2017-06-23] MEDS: ATORVASTATIN 20 MG TAB PEG/G-TUBE SCH (21:49)
[2017-06-24] MEDS: FUROSEMIDE 10 MG/ML 2 ML VIAL IV SCH ×3 (00:41→16:03)
[2017-06-24] MEDS: PIPERACILLIN-TAZOBACTAM 3.375 GM in DEXTROSE/WATER 1 50ML.BAG IVPB SCH ×3 (00:41→16:04)
[2017-06-24] MEDS: IPRATROPIUM-ALBUTEROL 3 ML NEB INHALATION SCH ×6 (03:35→23:32)
[2017-06-24 06:40] LABS: Anisocytosis Slight; Basophils % (A) 0 %; CH 32.4; CHCM 30.8; Eosinophils # (A) 0.1 k/uL (0-0.7); Eosinophils % (A) 1 %; HCT 35.5 % (34.0-46.0); HDW 2.71; HGB 10.6 gm/dL (11.4-16.0); Hypochromasia Moderate; Luc # (Auto) 0.04; Luc % (Auto) 1; Lymphocytes # (A) 0.3 k/uL (1.0-4.8); Lymphocytes % (A) 4 %; MCH 31.5 pg (25.0-35.0); MCHC 29.8 g/dL (31.0-37.0); Macrocytosis Marked; Mean Platelet Volume 8.4; Monocytes # (A) 0.2 k/uL (0-1.0); Monocytes % (A) 3 %; Neutrophils # (A) 6.3 k/uL (1.3-7.7); Neutrophils % (A) 91 %; RBC 3.35 m/uL (3.80-5.40); RDW 18.9 % (11.5-15.5); WBC 6.9 k/uL (3.8-10.6); WBC (Perox) 6.15
[2017-06-24 06:56] LABS: Anion Gap 7 mmol/L; Blood Urea Nitrogen 20 mg/dL (7-17); Calcium 8.5 mg/dL (8.4-10.2); Carbon Dioxide 32 mmol/L (22-30); Chloride 97 mmol/L (98-107); Glucose 193 mg/dL (74-99); Magnesium 1.8 mg/dL (1.6-2.3); Non-African American GFR(MDRD) >60 (>60 ml/min/1.73 sqM); Potassium 3.3 mmol/L (3.5-5.1); Sodium 136 mmol/L (137-145)
--- NOTE | 2017-06-24 07:11 | XR ---
EXAMINATION TYPE: XR chest 1V DATE OF EXAM: 06/24/2017 HISTORY: dyspnea. REFERENCE: Previous study dated 06/23/2017. FINDINGS: There is a MediPort in place on the right. The heart is enlarged. There is vascular congestion and interstitial change. There is left basilar ai rspace disease. There are small, bilateral effusions. IMPRESSION: 1. WORSENING CHANGES OF CONGESTIVE HEART FAILURE. 2. LEFT BASILAR AIRSPACE DISEASE. 3. SMALL, BILATERAL EFFUSIONS.
[2017-06-24] MEDS ORDERED: Potassium Replacement Protocol 1 EACH MISC MISCELLANE PRN (07:55)
--- NOTE | 2017-06-24 08:19 | P.PN ---
Subjective Principal diagnosis: Paroxysmal A. 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 The patient is also has a PEG tube. She was admitted to the hospital a few weeks ago with A. fib with RVR because she was not taking her medication because the PIC tube was not functioning normally. She was discharged from the hospital at that point in stable medical condition. She has been experiencing coughing blood and she was not feeling well for the last few days. Did not have any symptoms of chest pain. She has what it seems to be chronic shortness of breath according to her is unchanged compared to before. We get involved in her care because she is in A. fib with RVR. She continues to be on Cardizem IV. Beside that she was in congestive heart failure yesterday. She was started on Lasix IV. On follow-up with the patient today on June [id number], she continues to be in A. fib with RVR. Beside that the shortness of breath seems to be better after she was started on Lasix IV. She is making good urine. Objective - Vital Signs Vital signs: Vital Signs Temp 97.4 F L 06/24/17 04:12 Pulse 107 H 06/24/17 04:12 Resp 20 06/24/17 04:12 BP 116/76 06/24/17 04:12 Pulse Ox 91 L 06/24/17 04:12 Intake & Output 06/23/17 06/24/17 06/24/17 18:59 06:59 18:59 Intake Total 650.667 780 Output Total 3650 500 Balance -2999.333 280 Weight 68.5 kg Intake: IV 60 Sodium Chloride 0.9% 1, 60 000 ml @ 10 mls/hr IV . Q24H [facility] Rx#:[id number] Intake, IV Titration 90.667 Amount Diltiazem 125 mg In 90.667 Sodium Chloride 0.9% 100 ml @ 10 MG/HR 10 mls/hr IV .[id number] [facility] Rx#: [id number] Tube Feeding 560 720 Output: Urine 3650 500 Uretheral (Hopper) 2250 Other: Voiding Method Indwelling Catheter Indwelling Catheter # Bowel Movements 0 - Constitutional General appearance: Present: no acute distress - Respiratory Respiratory: bilateral: rales - Cardiovascular Rhythm: irregularly irregular Heart sounds: normal: S1, S2 - Labs CBC & Chem 7: 06/24/17 06:00 06/24/17 06:00 Labs: Abnormal Lab Results - Last 24 Hours (Table) 06/24/17 06/24/17 Range/Units 06:00 06:00 RBC 3.35 L (3.80-5.40) m/uL Hgb 10.6 L (11.4-16.0) gm/dL MCV 106.0 H (80.0-100.0) fL MCHC 29.8 L (31.0-37.0) g/dL RDW 18.9 H (11.5-15.5) % Plt Count 103 L (150-450) k/uL Lymphocytes # 0.3 L (1.0-4.8) k/uL Sodium 136 L (137-145) mmol/L Potassium 3.3 L (3.5-5.1) mmol/L Chloride 97 L (98-107) mmol/L Carbon Dioxide 32 H (22-30) mmol/L BUN 20 H (7-17) mg/dL Creatinine 0.40 L (0.52-1.04) mg/dL Glucose 193 H (74-99) mg/dL Assessment and Plan Plan: This is a pleasant 72-year-old female patient with long-standing persistent atrial fibrillation as well as history of laryngeal cancer currently under chemotherapy radiation therapy was admitted to the hospital with coughing up blood. She is in A. fib with RVR along with congestive heart failure. I am going to increase the dose of metoprolol 200 mg by mouth twice a day and try to wean her from the Cardizem drip. Beside that I am going to continue the Lasix IV and continue monitor the kidney function and electrolytes. The patient is not a candidate for oral anticoagulation
[2017-06-24] MEDS: POTASSIUM CHLORIDE 10 MEQ in WATER FOR INJECTION 1 100ML.BAG IVPB SCH ×2 (08:51→10:09)
[2017-06-24] MEDS: METOPROLOL TARTRATE 50 MG TAB PO SCH ×2 (09:04→20:57)
[2017-06-24] MEDS: MAGNESIUM OXIDE 400 MG TAB PEG/G-TUBE SCH ×2 (09:04→20:57)
--- NOTE | 2017-06-24 10:20 | P.PN ---
Subjective The patient's breathing is easier. Urine output has been good on Lasix. She tolerated sips of liquid well. No recurrent bleeding Objective - Vital Signs Vital signs: Vital Signs Temp 97.6 F 06/24/17 08:47 Pulse 120 H 06/24/17 08:47 Resp 20 06/24/17 08:47 BP 129/85 06/24/17 08:47 Pulse Ox 94 L 06/24/17 08:47 Intake & Output 06/23/17 06/24/17 06/24/17 18:59 06:59 18:59 Intake Total 650.667 780 125 Output Total 3650 500 Balance -2999.333 280 125 Weight 68.5 kg Intake: IV 60 Sodium Chloride 0.9% 1, 60 000 ml @ 10 mls/hr IV . Q24H [facility] Rx#:[id number] Intake, IV Titration 90.667 125 Amount Diltiazem 125 mg In 90.667 125 Sodium Chloride 0.9% 100 ml @ 10 MG/HR 10 mls/hr IV .[id number] [facility] Rx#: [id number] Tube Feeding 560 720 Output: Urine 3650 500 Uretheral (Hopper) 2250 Other: Voiding Method Indwelling Catheter Indwelling Catheter # Bowel Movements 0 - Constitutional General appearance: Present: mild distress - EENT Eyes: Present: EOMI, PERRLA ENT: Present: hearing grossly normal, normal oropharynx - Respiratory Respiratory: bilateral: rales (Improved versus yesterday) - Cardiovascular Rhythm: irregularly irregular Heart sounds: normal: S1, S2 - Gastrointestinal General gastrointestinal: Present: normal bowel sounds, soft - Integumentary Integumentary: Present: normal - Neurologic Neurologic: Present: CNII-XII intact - Musculoskeletal Musculoskeletal: Present: generalized weakness - Psychiatric Psychiatric: Present: A&O x's 3, appropriate affect - Labs CBC & Chem 7: 06/24/17 06:00 06/24/17 06:00 Labs: Abnormal Lab Results - Last 24 Hours (Table) 06/24/17 06/24/17 Range/Units 06:00 06:00 RBC 3.35 L (3.80-5.40) m/uL Hgb 10.6 L (11.4-16.0) gm/dL MCV 106.0 H (80.0-100.0) fL MCHC 29.8 L (31.0-37.0) g/dL RDW 18.9 H (11.5-15.5) % Plt Count 103 L (150-450) k/uL Lymphocytes # 0.3 L (1.0-4.8) k/uL Sodium 136 L (137-145) mmol/L Potassium 3.3 L (3.5-5.1) mmol/L Chloride 97 L (98-107) mmol/L Carbon Dioxide 32 H (22-30) mmol/L BUN 20 H (7-17) mg/dL Creatinine 0.40 L (0.52-1.04) mg/dL Glucose 193 H (74-99) mg/dL Assessment and Plan (1) SOB (shortness of breath) Narrative/Plan: This appears to have been due to fluid overload. This is improved with initiation of IV Lasix. Urine output has been quite good. Continue IV Lasix. The case was discussed with cardiology agrees with this management. Repeat chest x-ray in a.m. Status: Acute (2) Hemoptysis Narrative/Plan: There has been no recurrence of the same. As noted before, this is felt to be due to aspiration of blood that originated from the site of the primary tumor. Hemoglobin has been quite stable. Continue to monitor Status: Acute (3) Atrial fibrillation with RVR Narrative/Plan: The patient's heart rate is still somewhat high, in the 120 range. She continues on Cardizem. Cardiology is following. Defer to them for further management Status: Acute (4) Throat cancer Status: Acute Plan: - Potassium will be replaced per protocol. Continue to monitor electrolytes and replace as needed. - Check swallow evaluation, and advance diet, if satisfactory - PTOT, to increase ambulation
--- NOTE | 2017-06-24 11:51 | P.PN ---
Subjective Ms. Jorgensen is a very pleasant female pt of Dr. 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 She presented with oropharyngeal mass, seen by Dr. Chase and Dr. Cisneros, ultimately referred to Dr. Hess at [facility]. CT on 01/10/17 revealed 7.4 cm oropharyngeal mass, biopsy on 01/22/17 revealed moderately differentiated squamous cell carcinoma, she had PEG tube placed for nutritional support. She started neoadjuvant carbo and weekly taxol chemotherapy at [facility] with Oncologist Dr. Comer. After 1st she opted for treatment closer to home, she completed 4 cycles 05/17, she has had radiation treatments. Pt has had a cough for a few days, then last evening she cough up a copious amount of blood, a large clot, concern was a blood vessel had been eroded and pt was bleeding out so family brought her to ER. She had urgent nasopharyngeal laryngoscopy with Dr. Frazier who did not see any active bleeding, some old blood being coughed up, no gross tumors or friable mass were visualized. Pt continues to have cough, more congested sounding per family, pt denies fever , nausea, vomiting, chest pain, she does not feel her irrregular heart rate or a -fib, no abd pain, PEG is working well, no dysuria, hematuria, diarrhea, constipation, or bleeding, her feet have been swollen for a few days but they are better today, pt gets up with assistance to the bedside commode On 06/22/2017 the patient is being seen in follow-up. The patient is still still lethargic and quite weak. She is quite toxic from the systemic chemotherapy that was given to her last 3 weeks ago. She is not cough and blood and this has essentially subsided. She is on a Cardizem drip for rate control the rate of 5 mg an hour. She is on no anticoagulants. She is receiving enteral feeding for nutritional support through a PEG tube. She is also on IV Zosyn for a potential right lower lobe/right middle lobe pneumonia which can be of an aspiration type. No fever. No chills. No leukocytosis. No other complaints otherwise for now. She is resting comfortably in bed. On 06/23/2017 the patient is being seen for a follow-up. She is more short of breath compared to yesterday. She is having labored breathing. Minimal congested cough. She is unable to bring up any sputum. Very weak and lethargic and still suffering from toxicity of systemic chemotherapy. Chest x- ray was done and it showed development of bibasilar pulmonary ventilator and small effusions. As such, the patient was given a dose of Lasix 40 mg IV push. She started diuresing and 40 B also inserted. She is still on a Cardizem drip for rate control. She is on no anticoagulants. No active hemoptysis at this point. Still on IV Zosyn regarding possibility of bibasilar pneumonia. Condition is obviously worse compared to yesterday. The patient is quite lethargic. She remains to have a low white count of 6.8. Hemoglobin stable at 10.9 and there is no evidence of any acute bleeding at this point. On 06/24/2017 the patient is being seen in follow-up. She is quite lethargic and weak related to chemotherapy toxicity. She is less short of breath compared to yesterday and she is on Lasix IV. Her chest x-ray showing bibasilar pulmonary consolidation which could be fluid versus aspiration pneumonia. She is on IV Zosyn. Tolerating her tube feeds. On a Cardizem drip. Communicating. No hemoptysis. Hemoglobin stable at 10.6. The rest of the electrodes are all within normal limits. Objective - Vital Signs Vital signs: Vital Signs Temp 96.9 F L 06/24/17 11:48 Pulse 83 06/24/17 11:48 Resp 16 06/24/17 11:48 BP 117/63 06/24/17 11:48 Pulse Ox 96 06/24/17 11:48 Intake & Output 06/23/17 06/24/17 06/24/17 18:59 06:59 18:59 Intake Total 650.667 780 775 Output Total 3650 500 Balance -2999.333 280 775 Weight 68.5 kg Intake: IV 60 330 Piperacillin-Tazobactam 3 50 .375 gm In Dextrose/Water 1 50ml.bag @ 12.5 mls/hr IVPB Q8HR JULI[facility]N Rx#: [id number] Potassium Chloride 10 meq 200 In Water For Injection 1 100ml.bag @ 100 mls/hr IVPB Q1H JULI[facility]N Rx#: [id number] Sodium Chloride 0.9% 1, 60 80 000 ml @ 10 mls/hr IV . Q24H JUL[facility]N Rx#:[id number] Intake, IV Titration 90.667 125 Amount Diltiazem 125 mg In 90.667 125 Sodium Chloride 0.9% 100 ml @ 10 MG/HR 10 mls/hr IV .[id number] JULIÁN Rx#: [id number] Tube Feeding 560 720 320 Output: Urine 3650 500 Uretheral (Hopper) 2250 Other: Voiding Method Indwelling Catheter Indwelling Catheter Indwelling Catheter # Bowel Movements 0 - Exam Gen. appearance the patient has lost her headaches to systemic chemotherapy. The patient is in mild degree of respiratory distress. She is a bit restless in bed. Not using accessory muscles of breathing. She is a bit pale. Head is atraumatic normocephalic and the patient has developed her last due to systemic chemotherapy. Neck is supple. There is some fullness over the right submandibular area. No direct tenderness. No rebound tenderness. No guarding. There is skin changes related to radiation therapy over the right neck area. Lung sounds are diminished bilaterally. Scattered rhonchi. Scattered crackles at lung bases bilaterally. Heart sounds are irregular, positive S1-S2 and there is no significant murmurs appreciated.Abdominal exam revealed normal bowel sounds. The abdomen was soft, non-tender, and without masses, organomegaly, or appreciable enlargement of the abdominal aorta. Active site is clean and intact.Examination of the extremities revealed easily palpable radial, femoral and pedal pulses. There was no cyanosis, clubbing or edema. Neurologically the patient is awake and alert and following commands. No focal neurological deficit. Skin examination is negative for any ulcers or wounds or cellulitis. Skeletal examination showed no evidence of any arthritis or joint deformities. - Labs CBC & Chem 7: 06/24/17 06:00 06/24/17 06:00 Labs: Abnormal Lab Results - Last 24 Hours (Table) 06/24/17 06/24/17 Range/Units 06:00 06:00 RBC 3.35 L (3.80-5.40) m/uL Hgb 10.6 L (11.4-16.0) gm/dL MCV 106.0 H (80.0-100.0) fL MCHC 29.8 L (31.0-37.0) g/dL RDW 18.9 H (11.5-15.5) % Plt Count 103 L (150-450) k/uL Lymphocytes # 0.3 L (1.0-4.8) k/uL Sodium 136 L (137-145) mmol/L Potassium 3.3 L (3.5-5.1) mmol/L Chloride 97 L (98-107) mmol/L Carbon Dioxide 32 H (22-30) mmol/L BUN 20 H (7-17) mg/dL Creatinine 0.40 L (0.52-1.04) mg/dL Glucose 193 H (74-99) mg/dL Assessment and Plan Plan: Assessment 1 hemoptysis. The suspected source of bleeding is most likely the canister dislocation the right tonsillar area nontender the patient has a squamous cell carcinoma of the tonsil and the patient is being treated with a combination of chemoradiation therapy. ENT evaluation showed no evidence of any acute bleed. There was old retained blood within the posterior oropharynx and hypopharynx. I doubt a lower pulmonary source of bleeding. Nevertheless the bronchoscopy will be considered if the hemoptysis continues. ENT evaluation has been completed On 06/22/2017 the patient's hemoptysis subsided and the patient is not coughing any further blood. No significant rest of the stress pH is on IV Zosyn for empiric antibiotic coverage regarding potential right lower lobe/right middle lobe aspiration pneumonia. No fever. No chills. Hemodynamically stable. On no anticoagulants. On 06/23/2017 the patient's hemoptysis has subsided and the patient is not having any active hemoptysis at this point. On 06/24/2017, the patient's hemoptysis has subsided. There is no signs of any active bleeding and hemoglobin is stable. 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 The patient is being treated with a combination of chemoradiation therapy. Received carboplatinum and Taxol last chemotherapy was around 3 weeks ago. Received radiation therapy 3 COPD 4 worsening shortness of breath with development of new bibasilar pulmonary infiltrates/atelectasis. Rule out fluid overload/pulmonary edema. Rule out bibasilar pneumonia. Patient was given a dose of Lasix 40 mg IV push. A Hopper catheter was inserted. We're monitoring her progress. Chest x-ray from today was reviewed. On 06/24/2017 the patient is less short of breath. The patient is being diuresis with IV Lasix. She is also on IV Zosyn. No witnessed aspiration. 5 chronic atrial fibrillation with rapid ventricular response currently on a Cardizem drip for rate control. The patient is on no anticoagulants 6 coronary artery disease with previous coronary intervention and stenting, currently stable 7 diabetes mellitus 8 hypertension 9 hyperlipidemia 10 obstructive sleep apnea noncompliant to CPAP therapy 11 skin cancer that was been resected 12 smoker 13 macular degeneration 14 minimal troponin leak 15 limited emphysematous changes in the right middle lobe and right lower lobe. Pneumonia pneumonia of an aspiration type needs to be considered. 16 inability to swallow and the patient has enteral feeding for nutritional support Plan Patient is slightly improved compared to yesterday. We'll continue diuresis for another 24 hours. Continued IV Zosyn. Aspiration precautions. She is considerably weak. She is weak to the point where she is unable to sit up or move around or ambulate. This is essentially systemic chemotherapy toxicity and her baseline performance status seems to be quite poor at this point. We' ll continue the supportive care. Continue the tube feeds. Cardizem drip for rate control. No anticoagulation for now. Pain control with Duragesic patch. We'll follow. Prognosis poor.
[2017-06-24] MEDS: BUDESONIDE 0.5 MG/2 ML NEBU INHALATION SCH ×2 (12:06→19:20)
[2017-06-24] MEDS: DILTIAZEM 125 MG in SODIUM CHLORIDE 0.9% 100 ML IV SCH (15:57)
[2017-06-24] MEDS ORDERED: DILTIAZEM 5 MG/ML 5 ML VIAL IVP STA (17:05)
[2017-06-24] MEDS: SODIUM CHLORIDE 0.9% 1,000 ML IV SCH (20:31)
[2017-06-24] MEDS: LATANOPROST 0.005% OPHTH DROPS 2.5 ML BTL RIGHT EYE SCH (20:57)
[2017-06-24] MEDS: ATORVASTATIN 20 MG TAB PEG/G-TUBE SCH (20:57)
[2017-06-24] MEDS: ALPRAZolam 0.25 MG TAB PEG/G-TUBE PRN (20:59)
[2017-06-25] MEDS: FUROSEMIDE 10 MG/ML 2 ML VIAL IV SCH ×2 (00:36→09:15)
[2017-06-25] MEDS: PIPERACILLIN-TAZOBACTAM 3.375 GM in DEXTROSE/WATER 1 50ML.BAG IVPB SCH ×4 (00:36→23:08)
[2017-06-25] MEDS: DILTIAZEM 125 MG in SODIUM CHLORIDE 0.9% 100 ML IV SCH (01:44)
[2017-06-25] MEDS: IPRATROPIUM-ALBUTEROL 3 ML NEB INHALATION SCH ×6 (03:33→23:49)
[2017-06-25 06:17] LABS: Anisocytosis Slight; Basophils % (A) 0 %; CH 31.8; CHCM 30.2; Eosinophils % (A) 1 %; HCT 34.2 % (34.0-46.0); HDW 2.68; HGB 10.3 gm/dL (11.4-16.0); Hypochromasia Moderate; Luc # (Auto) 0.07; Luc % (Auto) 1; Lymphocytes # (A) 0.5 k/uL (1.0-4.8); Lymphocytes % (A) 7 %; MCHC 30.2 g/dL (31.0-37.0); Macrocytosis Marked; Mean Platelet Volume 8.2; Monocytes # (A) 0.2 k/uL (0-1.0); Monocytes % (A) 2 %; Neutrophils # (A) 6.3 k/uL (1.3-7.7); Neutrophils % (A) 89 %; RBC 3.22 m/uL (3.80-5.40); RDW 18.3 % (11.5-15.5); WBC 7.1 k/uL (3.8-10.6); WBC (Perox) 7.51
[2017-06-25 06:30] LABS: ALT 111 U/L (9-52); AST 40 U/L (14-36); Alkaline Phosphatase 274 U/L (38-126); Anion Gap 7 mmol/L; Blood Urea Nitrogen 24 mg/dL (7-17); Calcium 8.5 mg/dL (8.4-10.2); Carbon Dioxide 35 mmol/L (22-30); Chloride 94 mmol/L (98-107); Glucose 184 mg/dL (74-99); Magnesium 1.9 mg/dL (1.6-2.3); Non-African American GFR(MDRD) >60 (>60 ml/min/1.73 sqM); Potassium 3.8 mmol/L (3.5-5.1); Sodium 136 mmol/L (137-145); Total Bilirubin 0.5 mg/dL (0.2-1.3)
[2017-06-25 06:59] LABS: Manual Review Performed
[2017-06-25] MEDS: BUDESONIDE 0.5 MG/2 ML NEBU INHALATION SCH ×2 (08:21→20:09)
--- NOTE | 2017-06-25 08:25 | XR ---
EXAMINATION TYPE: XR chest 1V portable DATE OF EXAM: 06/25/2017 COMPARISON: 2016 HISTORY: Shortness of breath FINDINGS: There are bilateral pleural effusions with cardiomegaly and bibasilar infiltrate. There is a diffuse interstitial pattern. Right-sided Mediport catheter seen. IMPRESSION: 1. Correlate for CHF stable in appearance.
[2017-06-25] MEDS: METOPROLOL TARTRATE 50 MG TAB PO SCH ×2 (09:15→21:05)
[2017-06-25] MEDS: MAGNESIUM OXIDE 400 MG TAB PEG/G-TUBE SCH ×2 (09:15→21:06)
--- NOTE | 2017-06-25 11:06 | P.PN ---
Subjective Principal diagnosis: Paroxysmal A. fib This is a pleasant 72-year-old female patient who follows with a communications director out of the town with according to her and her family she has history of coronary artery disease with prior stenting, long-standing persistent atrial fibrillation not on any anticoagulation, as well as history of laryngeal cancer currently on chemo and radiation therapy, was brought by her family to the emergency room because she was coughing blood. The patient is also has a PEG tube. She was admitted to the hospital a few weeks ago with A. fib with RVR because she was not taking her medication because the PIC tube was not functioning normally. She was discharged from the hospital at that point in stable medical condition. She has been experiencing coughing blood and she was not feeling well for the last few days. Did not have any symptoms of chest pain. She has what it seems to be chronic shortness of breath according to her is unchanged compared to before. We get involved in her care because she is in A. fib with RVR. She continues to be on Cardizem IV. Beside that she was in congestive heart failure yesterday. She was started on Lasix IV. On follow-up with the patient today on June [id number], she continues to be in A. fib with RVR. Beside that the shortness of breath seems to be better after she was started on Lasix IV. I am going to wean her from the Cardizem IV and start her on Cardizem by mouth in addition to metoprolol for heart rate control. Also I would increase the dose of Lasix to 40 mg IV twice a day. The chest x- ray continues to show fluid overload. Objective - Vital Signs Vital signs: Vital Signs Temp 96.9 F L 06/25/17 08:00 Pulse 104 H 06/25/17 08:36 Resp 16 06/25/17 08:00 BP 112/81 06/25/17 08:00 Pulse Ox 91 L 06/25/17 08:00 Intake & Output 06/24/17 06/25/17 06/25/17 18:59 06:59 18:59 Intake Total 1419.833 740.167 320 Output Total 1300 700 Balance 119.833 40.167 320 Weight 69 kg Intake: IV 330 300 Diltiazem 125 mg In 150 Sodium Chloride 0.9% 100 ml @ 10 MG/HR 10 mls/hr IV .[id number] [facility]UL[facility]N Rx#: [id number] Piperacillin-Tazobactam 3 50 50 .375 gm In Dextrose/Water 1 50ml.bag @ 12.5 mls/hr IVPB Q8HR [facility]UL[facility]N Rx#: [id number] Potassium Chloride 10 meq 200 In Water For Injection 1 100ml.bag @ 100 mls/hr IVPB Q1H [facility]UL[facility]N Rx#: [id number] Sodium Chloride 0.9% 1, 80 100 000 ml @ 10 mls/hr IV . Q24H [facility]UL[facility]N Rx#:[id number] Intake, IV Titration 129.833 120.167 Amount Diltiazem 125 mg In 129.833 120.167 Sodium Chloride 0.9% 100 ml @ 10 MG/HR 10 mls/hr IV .[id number] JULI[facility]N Rx#: [id number] Tube Feeding 960 320 320 Output: Urine 1300 700 Other: Voiding Method Indwelling Catheter Indwelling Catheter Indwelling Catheter # Bowel Movements 1 1 - Constitutional General appearance: Present: no acute distress - Respiratory Respiratory: bilateral: diminished - Cardiovascular Rhythm: irregularly irregular - Labs CBC & Chem 7: 06/25/17 05:18 06/25/17 05:18 Labs: Abnormal Lab Results - Last 24 Hours (Table) 06/25/17 06/25/17 Range/Units 05:18 05:18 RBC 3.22 L (3.80-5.40) m/uL Hgb 10.3 L (11.4-16.0) gm/dL MCV 106.0 H (80.0-100.0) fL MCHC 30.2 L (31.0-37.0) g/dL RDW 18.3 H (11.5-15.5) % Plt Count 86 L (150-450) k/uL Lymphocytes # 0.5 L (1.0-4.8) k/uL Sodium 136 L (137-145) mmol/L Chloride 94 L (98-107) mmol/L Carbon Dioxide 35 H (22-30) mmol/L BUN 24 H (7-17) mg/dL Creatinine 0.40 L (0.52-1.04) mg/dL Glucose 184 H (74-99) mg/dL AST 40 H (14-36) U/L ALT 111 H (9-52) U/L Alkaline Phosphatase 274 H (38-126) U/L Total Protein 5.0 L (6.3-8.2) g/dL Albumin 2.5 L (3.5-5.0) g/dL Assessment and Plan Plan: This is a pleasant 72-year-old female patient with long-standing persistent atrial fibrillation as well as history of laryngeal cancer currently under chemotherapy radiation therapy was admitted to the hospital with coughing up blood. She is in A. fib with RVR along with congestive heart failure. Will start the patient on Cardizem by mouth and wean her from Cardizem IV. Continue metoprolol. Increase the dose of Lasix IV. The patient is not a candidate for oral anticoagulation
--- NOTE | 2017-06-25 12:29 | P.PN ---
Subjective Principal diagnosis: Hemoptysis Ms. Jorgensen is a very pleasant female pt of Dr. 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 She presented with oropharyngeal mass, seen by Dr. Chase and Dr. Cisneros, ultimately referred to Dr. Hess at [facility]. CT on 01/10/17 revealed 7.4 cm oropharyngeal mass, biopsy on 01/22/17 revealed moderately differentiated squamous cell carcinoma, she had PEG tube placed for nutritional support. She started neoadjuvant carbo and weekly taxol chemotherapy at [facility] with Oncologist Dr. Comer. After she opted for treatment closer to home, she completed 4 cycles 05/17, she has had radiation treatments. Pt has had a cough for a few days, then last evening she cough up a copious amount of blood, a large clot, concern was a blood vessel had been eroded and pt was bleeding out so family brought her to ER. She had urgent nasopharyngeal laryngoscopy with Dr. Frazier who did not see any active bleeding, some old blood being coughed up, no gross tumors or friable mass were visualized. Pt continues to have cough, more congested sounding per family, pt denies fever , nausea, vomiting, chest pain, she does not feel her irrregular heart rate or a -fib, no abd pain, PEG is working well, no dysuria, hematuria, diarrhea, constipation, or bleeding, her feet have been swollen for a few days but they are better today, pt gets up with assistance to the bedside commode On 06/22/2017 the patient is being seen in follow-up. The patient is still still lethargic and quite weak. She is quite toxic from the systemic chemotherapy that was given to her last 3 weeks ago. She is not cough and blood and this has essentially subsided. She is on a Cardizem drip for rate control the rate of 5 mg an hour. She is on no anticoagulants. She is receiving enteral feeding for nutritional support through a PEG tube. She is also on IV Zosyn for a potential right lower lobe/right middle lobe pneumonia which can be of an aspiration type. No fever. No chills. No leukocytosis. No other complaints otherwise for now. She is resting comfortably in bed. On 06/23/2017 the patient is being seen for a follow-up. She is more short of breath compared to yesterday. She is having labored breathing. Minimal congested cough. She is unable to bring up any sputum. Very weak and lethargic and still suffering from toxicity of systemic chemotherapy. Chest x- ray was done and it showed development of bibasilar pulmonary ventilator and small effusions. As such, the patient was given a dose of Lasix 40 mg IV push. She started diuresing and 40 B also inserted. She is still on a Cardizem drip for rate control. She is on no anticoagulants. No active hemoptysis at this point. Still on IV Zosyn regarding possibility of bibasilar pneumonia. Condition is obviously worse compared to yesterday. The patient is quite lethargic. She remains to have a low white count of 6.8. Hemoglobin stable at 10.9 and there is no evidence of any acute bleeding at this point. On 06/24/2017 the patient is being seen in follow-up. She is quite lethargic and weak related to chemotherapy toxicity. She is less short of breath compared to yesterday and she is on Lasix IV. Her chest x-ray showing bibasilar pulmonary consolidation which could be fluid versus aspiration pneumonia. She is on IV Zosyn. Tolerating her tube feeds. On a Cardizem drip. Communicating. No hemoptysis. Hemoglobin stable at 10.6. The rest of the electrodes are all within normal limits. Patient was seen today on follow-up on 06/25/2017, no further episodes of hemoptysis, less weakness, less lethargy is noted. Denies being short of breath , and she seems to be doing relatively well compared to how she felt all along. Chest x-ray is consistent with interstitial infiltrates or possibly more or less in appearance of congestive heart failure and ventral infiltrates. Patient also has small bilateral pleural effusions, and a right Mediport is noted. Labs were reviewed hemoglobin is stable at 10.3. Electrolytes are normal BUN is 24 creatinine is 0.40. Liver enzymes were noted to be a bit elevated. Objective - Vital Signs Vital signs: Vital Signs Temp 96.9 F L 06/25/17 08:00 Pulse 94 06/25/17 12:03 Resp 16 06/25/17 08:00 BP 112/81 06/25/17 08:00 Pulse Ox 91 L 06/25/17 08:00 Intake & Output 06/24/17 06/25/17 06/25/17 18:59 06:59 18:59 Intake Total 1419.833 740.167 320 Output Total 1300 700 Balance 119.833 40.167 320 Weight 69 kg Intake: IV 330 300 Diltiazem 125 mg In 150 Sodium Chloride 0.9% 100 ml @ 10 MG/HR 10 mls/hr IV .[id number] JULIÁN Rx#: [id number] Piperacillin-Tazobactam 3 50 50 .375 gm In Dextrose/Water 1 50ml.bag @ 12.5 mls/hr IVPB Q8HR JULIÁN Rx#: [id number] Potassium Chloride 10 meq 200 In Water For Injection 1 100ml.bag @ 100 mls/hr IVPB Q1H JULIÁN Rx#: [id number] Sodium Chloride 0.9% 1, 80 100 000 ml @ 10 mls/hr IV . Q24H JULI[facility]N Rx#:[id number] Intake, IV Titration 129.833 120.167 Amount Diltiazem 125 mg In 129.833 120.167 Sodium Chloride 0.9% 100 ml @ 10 MG/HR 10 mls/hr IV .[id number] JULIÁN Rx#: [id number] Tube Feeding 960 320 320 Output: Urine 1300 700 Other: Voiding Method Indwelling Catheter Indwelling Catheter Indwelling Catheter # Bowel Movements 1 1 - Exam Gen. appearance the patient has lost her headaches to systemic chemotherapy. The patient is in mild degree of respiratory distress. She is a bit restless in bed. Not using accessory muscles of breathing. She is a bit pale. Head is atraumatic normocephalic and the patient has developed her last due to systemic chemotherapy. Neck is supple. There is some fullness over the right submandibular area. No direct tenderness. No rebound tenderness. No guarding. There is skin changes related to radiation therapy over the right neck area. Lung sounds are diminished bilaterally. Scattered rhonchi. Scattered crackles at lung bases bilaterally. Heart sounds are irregular, positive S1-S2 and there is no significant murmurs appreciated.Abdominal exam revealed normal bowel sounds. The abdomen was soft, non-tender, and without masses, organomegaly, or appreciable enlargement of the abdominal aorta. Active site is clean and intact.Examination of the extremities revealed easily palpable radial, femoral and pedal pulses. There was no cyanosis, clubbing or edema. Neurologically the patient is awake and alert and following commands. No focal neurological deficit. Skin examination is negative for any ulcers or wounds or cellulitis. Skeletal examination showed no evidence of any arthritis or joint deformities. - Labs CBC & Chem 7: 06/25/17 05:18 06/25/17 05:18 Labs: Abnormal Lab Results - Last 24 Hours (Table) 06/25/17 06/25/17 Range/Units 05:18 05:18 RBC 3.22 L (3.80-5.40) m/uL Hgb 10.3 L (11.4-16.0) gm/dL MCV 106.0 H (80.0-100.0) fL MCHC 30.2 L (31.0-37.0) g/dL RDW 18.3 H (11.5-15.5) % Plt Count 86 L (150-450) k/uL Lymphocytes # 0.5 L (1.0-4.8) k/uL Sodium 136 L (137-145) mmol/L Chloride 94 L (98-107) mmol/L Carbon Dioxide 35 H (22-30) mmol/L BUN 24 H (7-17) mg/dL Creatinine 0.40 L (0.52-1.04) mg/dL Glucose 184 H (74-99) mg/dL AST 40 H (14-36) U/L ALT 111 H (9-52) U/L Alkaline Phosphatase 274 H (38-126) U/L Total Protein 5.0 L (6.3-8.2) g/dL Albumin 2.5 L (3.5-5.0) g/dL Assessment and Plan Plan: 1 hemoptysis. The suspected source of bleeding is most likely the canister dislocation the right tonsillar area nontender the patient has a squamous cell carcinoma of the tonsil and the patient is being treated with a combination of chemoradiation therapy. ENT evaluation showed no evidence of any acute bleed. There was old retained blood within the posterior oropharynx and hypopharynx. I doubt a lower pulmonary source of bleeding. Nevertheless the bronchoscopy will be considered if the hemoptysis continues. ENT evaluation has been completed On 06/22/2017 the patient's hemoptysis subsided and the patient is not coughing any further blood. No significant rest of the stress pH is on IV Zosyn for empiric antibiotic coverage regarding potential right lower lobe/right middle lobe aspiration pneumonia. No fever. No chills. Hemodynamically stable. On no anticoagulants. On 06/23/2017 the patient's hemoptysis has subsided and the patient is not having any active hemoptysis at this point. On 06/24/2017, the patient's hemoptysis has subsided. There is no signs of any active bleeding and hemoglobin is stable. On 06/25/2017, hemoptysis has completely subsided, patient seems to be less weak , more energetic, and less lethargic. 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 The patient is being treated with a combination of chemoradiation therapy. Received carboplatinum and Taxol last chemotherapy was around 3 weeks ago. Received radiation therapy 3 COPD 4 worsening shortness of breath with development of new bibasilar pulmonary infiltrates/atelectasis. Rule out fluid overload/pulmonary edema. Rule out bibasilar pneumonia. Patient was given a dose of Lasix 40 mg IV push. A Hopper catheter was inserted. We're monitoring her progress. Chest x-ray from today was reviewed. On 06/24/2017 the patient is less short of breath. The patient is being diuresis with IV Lasix. She is also on IV Zosyn. No witnessed aspiration. 5 chronic atrial fibrillation with rapid ventricular response currently on a Cardizem drip for rate control. The patient is on no anticoagulants 6 coronary artery disease with previous coronary intervention and stenting, currently stable 7 diabetes mellitus 8 hypertension 9 hyperlipidemia 10 obstructive sleep apnea noncompliant to CPAP therapy 11 skin cancer that was been [id number] smoker 13 macular degeneration 14 minimal troponin leak 15 limited emphysematous changes in the right middle lobe and right lower lobe. Pneumonia pneumonia of an aspiration type needs to be considered. 16 inability to swallow and the patient has enteral feeding for nutritional support Recommendation: Continue diuretics, continue antibiotics in the form of Zosyn, continue aspiration precautions, consider possibly transfer to ECF facility in the next couple of days. We'll continue to follow. Pain seems to be well- controlled with the Duragesic patch. Time with Patient: Less than 30
--- NOTE | 2017-06-25 15:34 | P.PN ---
Subjective Principal diagnosis: hemoptysis Pt seen today in follow up with her daughter/caregiver at bedside. Pt is tired but daughter states she just laid down from being up for over an hour in the chair, pt arouses to voice, she has no nausea, abd pain or bloating, she feels her breathing is better, daughter notices less congested coughing, no further hemoptysis, pt denies feeling palpitations, having chest pain. Objective - Vital Signs Vital signs: Vital Signs Temp 96.9 F L 06/25/17 12:00 Pulse 94 06/25/17 12:03 Resp 18 06/25/17 12:00 BP 110/55 06/25/17 12:00 Pulse Ox 96 06/25/17 12:00 Intake & Output 06/24/17 06/25/17 06/25/17 18:59 06:59 18:59 Intake Total 1419.833 740.167 895 Output Total 1300 700 850 Balance 119.833 40.167 45 Weight 69 kg Intake: IV 330 300 175 Diltiazem 125 mg In 150 45 Sodium Chloride 0.9% 100 ml @ 10 MG/HR 10 mls/hr IV .[id number] JULIÁN Rx#: [id number] Piperacillin-Tazobactam 3 50 50 50 .375 gm In Dextrose/Water 1 50ml.bag @ 12.5 mls/hr IVPB Q8HR JULI[facility]N Rx#: [id number] Potassium Chloride 10 meq 200 In Water For Injection 1 100ml.bag @ 100 mls/hr IVPB Q1H JULIÁN Rx#: [id number] Sodium Chloride 0.9% 1, 80 100 80 000 ml @ 10 mls/hr IV . Q24H JULI[facility]N Rx#:[id number] Intake, IV Titration 129.833 120.167 Amount Diltiazem 125 mg In 129.833 120.167 Sodium Chloride 0.9% 100 ml @ 10 MG/HR 10 mls/hr IV .[id number] JULIÁN Rx#: [id number] Oral 80 Tube Feeding 960 320 640 Output: Urine 1300 700 850 Other: Voiding Method Indwelling Catheter Indwelling Catheter Indwelling Catheter # Bowel Movements 1 1 1 - Constitutional General appearance: Present: average body habitus, cooperative, no acute distress - EENT Eyes: Present: anicteric sclerae - Respiratory Respiratory: bilateral: rales (improving) - Cardiovascular Rhythm: irregularly irregular Heart sounds: normal: S1, S2 - Peripheral edema foot Peripheral Edema: bilateral: Trace - Gastrointestinal General gastrointestinal: Present: normal bowel sounds, soft - Integumentary Integumentary: Present: pale - Neurologic Neurologic: Present: CNII-XII intact - Musculoskeletal Musculoskeletal: Present: generalized weakness - Psychiatric Psychiatric: Present: A&O x's 3, appropriate affect, intact judgment & insight - Labs CBC & Chem 7: 06/25/17 05:18 06/25/17 05:18 Labs: Abnormal Lab Results - Last 24 Hours (Table) 06/25/17 06/25/17 Range/Units 05:18 05:18 RBC 3.22 L (3.80-5.40) m/uL Hgb 10.3 L (11.4-16.0) gm/dL MCV 106.0 H (80.0-100.0) fL MCHC 30.2 L (31.0-37.0) g/dL RDW 18.3 H (11.5-15.5) % Plt Count 86 L (150-450) k/uL Lymphocytes # 0.5 L (1.0-4.8) k/uL Sodium 136 L (137-145) mmol/L Chloride 94 L (98-107) mmol/L Carbon Dioxide 35 H (22-30) mmol/L BUN 24 H (7-17) mg/dL Creatinine 0.40 L (0.52-1.04) mg/dL Glucose 184 H (74-99) mg/dL AST 40 H (14-36) U/L ALT 111 H (9-52) U/L Alkaline Phosphatase 274 H (38-126) U/L Total Protein 5.0 L (6.3-8.2) g/dL Albumin 2.5 L (3.5-5.0) g/dL - Imaging and Cardiology Chest x-ray: report reviewed Assessment and Plan (1) Hemoptysis Narrative/Plan: No hemoptysis since a day or 2 after admit. Pulmonary notes reviewed, pt respiratory status is improved with treatments. Status: Acute (2) Atrial fibrillation with RVR Narrative/Plan: Persistent, Cardiology following, meds are being adjusted. Status: Acute (3) Anemia Narrative/Plan: Stable, no transfusions necessary Status: Chronic (4) Squamous cell carcinoma of head and neck Narrative/Plan: Pt has completed chemo. Pt has about 2 1/2 weeks of radiation left. She will f /u with Rad/Onc for plan. Status: Chronic Plan: Pt performance status is rather poor, ECOG 3. PT/OT was consulted early in hospitalization. Pt family currently has been able to provide pt with care at home and continues to feel that they are able to manage at this time. Anticipate discharge in the next 1-2 days
[2017-06-25] MEDS: DILTIAZEM ORAL 60 MG TAB PO SCH ×2 (15:36→21:06)
[2017-06-25] MEDS: SODIUM CHLORIDE 0.9% 1,000 ML IV SCH (17:23)
[2017-06-25] MEDS: FUROSEMIDE 10 MG/ML 4 ML VIAL IV SCH (20:10)
[2017-06-25] MEDS: LATANOPROST 0.005% OPHTH DROPS 2.5 ML BTL RIGHT EYE SCH (20:10)
[2017-06-25] MEDS: ATORVASTATIN 20 MG TAB PEG/G-TUBE SCH (21:05)
[2017-06-25] MEDS: ALPRAZolam 0.25 MG TAB PEG/G-TUBE PRN (21:23)
[2017-06-26 00:59] LABS: Potassium 4.3 mmol/L (3.5-5.1)
[2017-06-26] MEDS: IPRATROPIUM-ALBUTEROL 3 ML NEB INHALATION SCH ×7 (03:19→23:41)
[2017-06-26 06:11] LABS: Anisocytosis Slight; CHCM 31.1; HCT 33.5 % (34.0-46.0); HDW 2.83; HGB 10.4 gm/dL (11.4-16.0); Hypochromasia Slight; MCH 32.1 pg (25.0-35.0); MCHC 31.1 g/dL (31.0-37.0); MCV 103.4 fL (80.0-100.0); Macrocytosis Moderate; RBC 3.24 m/uL (3.80-5.40); RDW 18.4 % (11.5-15.5); WBC (Perox) 7.98
[2017-06-26 07:23] LABS: Add Differential Manual Differential
[2017-06-26 07:28] LABS: Band Neutrophils % 16 %; Metamyelocytes % 2 %; Nucleated Red Blood Cells 1 /100 WBC (0-0); Polychromasia Present; Total Cells Counted 200
[2017-06-26] MEDS: PIPERACILLIN-TAZOBACTAM 3.375 GM in DEXTROSE/WATER 1 50ML.BAG IVPB SCH (08:03)
[2017-06-26] MEDS: FUROSEMIDE 10 MG/ML 4 ML VIAL IV SCH ×2 (08:03→21:10)
[2017-06-26] MEDS: METOPROLOL TARTRATE 50 MG TAB PO SCH ×2 (08:04→19:01)
[2017-06-26] MEDS: DILTIAZEM ORAL 60 MG TAB PO SCH (08:04)
[2017-06-26] MEDS: MAGNESIUM OXIDE 400 MG TAB PEG/G-TUBE SCH ×2 (08:04→21:10)
[2017-06-26] MEDS: BUDESONIDE 0.5 MG/2 ML NEBU INHALATION SCH ×2 (08:06→19:19)
[2017-06-26 10:34] LABS: Anion Gap 7 mmol/L; Blood Urea Nitrogen 26 mg/dL (7-17); Calcium 8.8 mg/dL (8.4-10.2); Carbon Dioxide 32 mmol/L (22-30); Chloride 94 mmol/L (98-107); Glucose 179 mg/dL (74-99); Non-African American GFR(MDRD) >60 (>60 ml/min/1.73 sqM); Potassium 4.4 mmol/L (3.5-5.1); Sodium 133 mmol/L (137-145)
--- NOTE | 2017-06-26 10:48 | P.PN ---
Subjective Principal diagnosis: Paroxysmal A. fib This is a pleasant 72-year-old female patient who follows with a director education out of the town with according to her and her family she has history of coronary artery disease with prior stenting, long-standing persistent atrial fibrillation not on any anticoagulation, as well as history of laryngeal cancer currently on chemo and radiation therapy, was brought by her family to the emergency room because she was coughing blood. The patient is also has a PEG tube. She was admitted to the hospital a few weeks ago with A. fib with RVR because she was not taking her medication because the PIC tube was not functioning normally. She was discharged from the hospital at that point in stable medical condition. She has been experiencing coughing blood and she was not feeling well for the last few days. Did not have any symptoms of chest pain. She has what it seems to be chronic shortness of breath according to her is unchanged compared to before. We get involved in her care because she is in A. fib with RVR. Beside that she was in congestive heart failure yesterday. On follow-up with the patient today on June [id number], she continues in atrial fibrillation with reasonably controlled heart rate on the current dose of metoprolol as well as heart disease and. Beside that the shortness of breath seems to be better after she was started on Lasix IV. I will continue the current medical treatment. Continue the Lasix IV. Obtain BMP today and on daily basis. Objective - Vital Signs Vital signs: Vital Signs Temp 97.7 F 06/26/17 08:00 Pulse 100 06/26/17 08:00 Resp 17 06/26/17 10:38 BP 144/90 06/26/17 08:00 Pulse Ox 92 L 06/26/17 08:00 Intake & Output 06/25/17 06/26/17 06/26/17 18:59 06:59 18:59 Intake Total 1535 870 480 Output Total 850 1300 Balance 685 -430 480 Weight 67 kg Intake: IV 175 150 Diltiazem 125 mg In 45 Sodium Chloride 0.9% 100 ml @ 10 MG/HR 10 mls/hr IV .[id number] JULIÁN Rx#: [id number] Piperacillin-Tazobactam 3 50 50 .375 gm In Dextrose/Water 1 50ml.bag @ 12.5 mls/hr IVPB Q8HR JULIÁN Rx#: [id number] Sodium Chloride 0.9% 1, 80 100 000 ml @ 10 mls/hr IV . Q24H JULI[facility]N Rx#:[id number] Oral 80 Tube Feeding 1280 720 480 Output: Urine 850 1300 Other: Voiding Method Indwelling Catheter Indwelling Catheter Indwelling Catheter # Bowel Movements 1 1 - Constitutional General appearance: Present: no acute distress - Respiratory Respiratory: bilateral: rhonchi - Cardiovascular Rhythm: irregularly irregular Heart sounds: normal: S1, S2 - Labs CBC & Chem 7: 06/26/17 05:22 06/26/17 05:22 Labs: Abnormal Lab Results - Last 24 Hours (Table) 06/26/17 06/26/17 Range/Units 05:22 05:22 RBC 3.24 L (3.80-5.40) m/uL Hgb 10.4 L (11.4-16.0) gm/dL Hct 33.5 L (34.0-46.0) % MCV 103.4 H (80.0-100.0) fL RDW 18.4 H (11.5-15.5) % Plt Count 89 L (150-450) k/uL Lymphocytes # (Manual) 0.72 L (1.0-4.8) k/uL Metamyelocytes # (Man) 0.16 H (0) k/uL Nucleated RBCs 1 H (0-0) /100 WBC Sodium 133 L (137-145) mmol/L Chloride 94 L (98-107) mmol/L Carbon Dioxide 32 H (22-30) mmol/L BUN 26 H (7-17) mg/dL Creatinine 0.37 L (0.52-1.04) mg/dL Glucose 179 H (74-99) mg/dL Assessment and Plan Plan: This is a pleasant 72-year-old female patient with long-standing persistent atrial fibrillation as well as history of laryngeal cancer currently under chemotherapy radiation therapy was admitted to the hospital with coughing up blood. She is in A. fib with RVR along with congestive heart failure. Continue the current medical treatment with metoprolol and Cardizem by mouth. Continue Lasix IV with monitoring the kidney function and electrolytes.
--- NOTE | 2017-06-26 11:34 | P.PN ---
Subjective Principal diagnosis: Hemoptysis Ms. Jorgensen is a very pleasant female pt of Dr. 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 She presented with oropharyngeal mass, seen by Dr. Chase and Dr. Cisneros, ultimately referred to Dr. Hess at [facility]. CT on 01/10/17 revealed 7.4 cm oropharyngeal mass, biopsy on 01/22/17 revealed moderately differentiated squamous cell carcinoma, she had PEG tube placed for nutritional support. She started neoadjuvant carbo and weekly taxol chemotherapy at [facility] with Oncologist Dr. Comer. After she opted for treatment closer to home, she completed 4 cycles 05/17, she has had radiation treatments. Pt has had a cough for a few days, then last evening she cough up a copious amount of blood, a large clot, concern was a blood vessel had been eroded and pt was bleeding out so family brought her to ER. She had urgent nasopharyngeal laryngoscopy with Dr. Frazier who did not see any active bleeding, some old blood being coughed up, no gross tumors or friable mass were visualized. Pt continues to have cough, more congested sounding per family, pt denies fever , nausea, vomiting, chest pain, she does not feel her irrregular heart rate or a -fib, no abd pain, PEG is working well, no dysuria, hematuria, diarrhea, constipation, or bleeding, her feet have been swollen for a few days but they are better today, pt gets up with assistance to the bedside commode On 06/22/2017 the patient is being seen in follow-up. The patient is still still lethargic and quite weak. She is quite toxic from the systemic chemotherapy that was given to her last 3 weeks ago. She is not cough and blood and this has essentially subsided. She is on a Cardizem drip for rate control the rate of 5 mg an hour. She is on no anticoagulants. She is receiving enteral feeding for nutritional support through a PEG tube. She is also on IV Zosyn for a potential right lower lobe/right middle lobe pneumonia which can be of an aspiration type. No fever. No chills. No leukocytosis. No other complaints otherwise for now. She is resting comfortably in bed. On 06/23/2017 the patient is being seen for a follow-up. She is more short of breath compared to yesterday. She is having labored breathing. Minimal congested cough. She is unable to bring up any sputum. Very weak and lethargic and still suffering from toxicity of systemic chemotherapy. Chest x- ray was done and it showed development of bibasilar pulmonary ventilator and small effusions. As such, the patient was given a dose of Lasix 40 mg IV push. She started diuresing and 40 B also inserted. She is still on a Cardizem drip for rate control. She is on no anticoagulants. No active hemoptysis at this point. Still on IV Zosyn regarding possibility of bibasilar pneumonia. Condition is obviously worse compared to yesterday. The patient is quite lethargic. She remains to have a low white count of 6.8. Hemoglobin stable at 10.9 and there is no evidence of any acute bleeding at this point. On 06/24/2017 the patient is being seen in follow-up. She is quite lethargic and weak related to chemotherapy toxicity. She is less short of breath compared to yesterday and she is on Lasix IV. Her chest x-ray showing bibasilar pulmonary consolidation which could be fluid versus aspiration pneumonia. She is on IV Zosyn. Tolerating her tube feeds. On a Cardizem drip. Communicating. No hemoptysis. Hemoglobin stable at 10.6. The rest of the electrodes are all within normal limits. Patient was seen today on follow-up on 06/25/2017, no further episodes of hemoptysis, less weakness, less lethargy is noted. Denies being short of breath , and she seems to be doing relatively well compared to how she felt all along. Chest x-ray is consistent with interstitial infiltrates or possibly more or less in appearance of congestive heart failure and ventral infiltrates. Patient also has small bilateral pleural effusions, and a right Mediport is noted. Labs were reviewed hemoglobin is stable at 10.3. Electrolytes are normal BUN is 24 creatinine is 0.40. Liver enzymes were noted to be a bit elevated. Reevaluated today on 06/26/2017, no further episodes of hemoptysis, patient seems to be experiencing intermittent episodes of cough and congestion. No chest pain, no fever, no chills, and no further episodes of hemoptysis. CBC was reviewed relatively normal. Hemoglobin is 10.4. WBC count is 8.0. Platelets are 89,000. Basic metabolic profile is relatively normal, renal profile is normal. Chest x-ray from yesterday showed findings of possible component of mild congestive heart failure and interstitial edema. Patient remains on Lasix 40 mg IV push every 12 hours. She is also on multiple cardiac meds for atrial fibrillation. And hypertension. IV fluid is cut down to KVO. Objective - Vital Signs Vital signs: Vital Signs Temp 97.7 F 06/26/17 08:00 Pulse 105 H 06/26/17 10:56 Resp 17 06/26/17 10:56 BP 147/89 06/26/17 10:56 Pulse Ox 94 L 06/26/17 10:56 Intake & Output 06/25/17 06/26/17 06/26/17 18:59 06:59 18:59 Intake Total 1535 870 480 Output Total 850 1300 Balance 685 -430 480 Weight 67 kg 67 kg Intake: IV 175 150 Diltiazem 125 mg In 45 Sodium Chloride 0.9% 100 ml @ 10 MG/HR 10 mls/hr IV .[id number] [facility] Rx#: [id number] Piperacillin-Tazobactam 3 50 50 .375 gm In Dextrose/Water 1 50ml.bag @ 12.5 mls/hr IVPB Q8HR [facility] Rx#: [id number] Sodium Chloride 0.9% 1, 80 100 000 ml @ 10 mls/hr IV . Q24H [facility] Rx#:[id number] Oral 80 Tube Feeding 1280 720 480 Output: Urine 850 1300 Other: Voiding Method Indwelling Catheter Indwelling Catheter Indwelling Catheter # Bowel Movements 1 1 - Exam Gen. appearance the patient has lost her hair to systemic chemotherapy. The patient is not in respiratory distress. She is a bit restless in bed. Not using accessory muscles of breathing. She is a bit pale. Head is atraumatic normocephalic and the patient has developed her loss due to systemic chemotherapy. Neck is supple. There is some fullness over the right submandibular area. No direct tenderness. No rebound tenderness. No guarding. There is skin changes related to radiation therapy over the right neck area. Lung sounds are diminished bilaterally. Scattered rhonchi. Scattered crackles at lung bases bilaterally. Heart sounds are irregular, positive S1-S2 and there is no significant murmurs appreciated. Abdominal exam revealed normal bowel sounds. The abdomen was soft, non-tender, and without masses, organomegaly, or appreciable enlargement of the abdominal aorta. .Examination of the extremities revealed easily palpable radial, femoral and pedal pulses. There was no cyanosis, clubbing or edema. Neurologically the patient is awake and alert and following commands. No focal neurological deficit. Skin examination is negative for any ulcers or wounds or cellulitis. Skeletal examination showed no evidence of any arthritis or joint deformities. - Labs CBC & Chem 7: 06/26/17 05:22 06/26/17 05:22 Labs: Abnormal Lab Results - Last 24 Hours (Table) 06/26/17 06/26/17 Range/Units 05:22 05:22 RBC 3.24 L (3.80-5.40) m/uL Hgb 10.4 L (11.4-16.0) gm/dL Hct 33.5 L (34.0-46.0) % MCV 103.4 H (80.0-100.0) fL RDW 18.4 H (11.5-15.5) % Plt Count 89 L (150-450) k/uL Lymphocytes # (Manual) 0.72 L (1.0-4.8) k/uL Metamyelocytes # (Man) 0.16 H (0) k/uL Nucleated RBCs 1 H (0-0) /100 WBC Sodium 133 L (137-145) mmol/L Chloride 94 L (98-107) mmol/L Carbon Dioxide 32 H (22-30) mmol/L BUN 26 H (7-17) mg/dL Creatinine 0.37 L (0.52-1.04) mg/dL Glucose 179 H (74-99) mg/dL Assessment and Plan Plan: 1 hemoptysis. The suspected source of bleeding is most likely the canister dislocation the right tonsillar area nontender the patient has a squamous cell carcinoma of the tonsil and the patient is being treated with a combination of chemoradiation therapy. ENT evaluation showed no evidence of any acute bleed. There was old retained blood within the posterior oropharynx and hypopharynx. I doubt a lower pulmonary source of bleeding. Nevertheless the bronchoscopy will be considered if the hemoptysis continues. ENT evaluation has been completed On 06/22/2017 the patient's hemoptysis subsided and the patient is not coughing any further blood. No significant rest of the stress pH is on IV Zosyn for empiric antibiotic coverage regarding potential right lower lobe/right middle lobe aspiration pneumonia. No fever. No chills. Hemodynamically stable. On no anticoagulants. On 06/23/2017 the patient's hemoptysis has subsided and the patient is not having any active hemoptysis at this point. On 06/24/2017, the patient's hemoptysis has subsided. There is no signs of any active bleeding and hemoglobin is stable. On 06/25/2017, hemoptysis has completely subsided, patient seems to be less weak , more energetic, and less lethargic. On 06/26/2017, patient is feeling better overall, continues to have some pulmonary congestion, remains on bronchodilators and diuretics. 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 The patient is being treated with a combination of chemoradiation therapy. Received carboplatinum and Taxol last chemotherapy was around 3 weeks ago. Received radiation therapy 3 COPD 4 worsening shortness of breath with development of new bibasilar pulmonary infiltrates/atelectasis. Rule out fluid overload/pulmonary edema. Rule out bibasilar pneumonia. Patient was given a dose of Lasix 40 mg IV push. Presently on Lasix 40 mg IV push every 12 hours. A Hopper catheter was inserted. We're monitoring her progress. Chest x-ray from today was reviewed. From 5 chronic atrial fibrillation with rapid ventricular response currently on a Cardizem drip for rate control. The patient is on no anticoagulants 6 coronary artery disease with previous coronary intervention and stenting, currently stable 7 diabetes mellitus 8 hypertension 9 hyperlipidemia 10 obstructive sleep apnea noncompliant to CPAP therapy 11 skin cancer that was been [id number] smoker 13 macular degeneration 14 minimal troponin leak 15 limited emphysematous changes in the right middle lobe and right lower lobe. Pneumonia pneumonia of an aspiration type needs to be considered. 16 inability to swallow and the patient has enteral feeding for nutritional support Recommendation: Continue diuretics, continue antibiotics in the form of Zosyn, continue aspiration precautions, consider possibly transfer to ECF facility in the next couple of days. We'll continue to follow. Pain seems to be well- controlled with the Duragesic patch. Time with Patient: Less than 30
[2017-06-26] MEDS ORDERED: FUROSEMIDE 10 MG/ML 4 ML VIAL IV STA (14:29)
[2017-06-26] MEDS ORDERED: DEXTROSE 5% IN WATER 100 ML with AMIODARONE 150 MG IV ONE (14:45)
[2017-06-26] MEDS: SODIUM CHLORIDE 0.9% 1,000 ML IV SCH (14:57)
[2017-06-26] MEDS: AMIODARONE 450 MG in DEXTROSE 5% IN WATER 250 ML IV SCH ×4 (15:13→21:13)
--- NOTE | 2017-06-26 16:36 | CDI ---
In responding to this query, please exercise your independent professional judgment. The [facility] Coding Staff and Clinical Documentation Specialists appreciate your assistance in clarifying documentation, maintaining compliance with coding guidelines, accurately documenting patients condition and capturing severity of illness. The fact that a question is asked does not imply that any particular answer is desired or expected. Communication forms are a method of clarifying documentation and are not made part of the Legal Health Record. Thank you in advance for your clarification. Last Revision, November 2016 Ray Taveras [address] [place] [address] Documentation Clarification Form Date: 06/26/2017 4:14:00 PM From: Julieta Richard RN, CCDS Admit Date: 06/20/2017 2:54:00 PM Patient Name: Darleen Jorgensen Visit Number: [id number] Dr. Jamir Marks CHF is documented in the progress notes and requires further specificity. History/Risk Factors: Head and neck Ca receiving radiation with hemoptysis, CHF, Atrial Fib, CAD, COPD Clinical Indicators: 06/25 Cardiology Progress Note: She is in A. fib with RVR along with congestive heart failure." VS/Pulse OX: Temp 97.6, HR 122-175, B/P 133/62, RR 14-26, Spo2 94% 2l NC BNP: 1160 05/02 Echocardiogram Results: EF 45-50%, LA severely dilated, moderate pulmonary HTN Chest X Ray: Treatment: Lasix 40 mg IVP Q 12 hrs Consults: Cardiology In your professional opinion, can you please clarify the acuity and type of CHF if known? Systolic Heart Failure: Acute Chronic Acute on Chronic Diastolic Heart Failure: Acute Chronic Acute on Chronic Systolic & Diastolic Heart Failure: Acute Chronic Acute on Chronic Unable to determine Other, please specify Please document in your progress notes and discharge summary in order to capture severity of illness and risk of mortality. Include clinical findings that support your diagnosis. FYI: Press F11 to launch patient chart. CLAUDIO
--- NOTE | 2017-06-26 16:39 | CDI ---
In responding to this query, please exercise your independent professional judgment. The [facility] Coding Staff and Clinical Documentation Specialists appreciate your assistance in clarifying documentation, maintaining compliance with coding guidelines, accurately documenting patients condition and capturing severity of illness. The fact that a question is asked does not imply that any particular answer is desired or expected. Communication forms are a method of clarifying documentation and are not made part of the Legal Health Record. Thank you in advance for your clarification. Last Revision, August 2015 Ray Taveras [address] [place] [address] Documentation Clarification Form Date: 06/26/2017 4:21:00 PM From: Julieta Richard RN, CCDS Admit Date: 06/20/2017 2:54:00 PM Patient Name: Darleen Jorgensen Visit Number: [id number] Dr. Rishi Harper/ Evelyne Jo CNP A diagnosis of anemia lacks specificity to accurately reflect your patients severity of condition and clarification is needed. Patient history/risk factors: Squamous cell carcinoma of right tonsil in November 2016. Clinical Indicators: 06/21 Onc H&P: "Pt has had a cough for a few days, then last evening she cough up a copious amount of blood, a large clot , concern was a blood vessel had been eroded and pt was bleeding out..." Pt is receiving Chemo and Radiation Hemoglobin: 12.1/10.9/10.6 Hematocrit: 37/36/36.1/35.3/35.5 Treatment: Labs AM Daily In order to capture the severity of condition, please clarify the type of anemia and etiology if known: Acute blood loss anemia Acute on chronic blood loss anemia Chronic blood loss anemia Iron deficiency anemia Hemolytic anemia Drug induced anemia Anemia due to malignancy Nutritional anemia Anemia of chronic kidney disease Unable to determine Other, please specify Please document in your progress notes and discharge summary in order to capture severity of illness and risk of mortality. Include clinical findings that support your diagnosis. FYI: Press F11 to launch patient chart. MTDShilpi
--- NOTE | 2017-06-26 17:44 | P.PN ---
Subjective Principal diagnosis: hemoptysis Pt seen today in follow up. She has her eyes closed most of the time but does respond appropriately to questions, she works well with family, pt ate yogurt yesterday, she continues on tube feed, no nausea, cough persists, no hemoptysis , abd pain or bloating, diarrhea or constipation. Objective - Vital Signs Vital signs: Vital Signs Temp 97.6 F 06/26/17 15:08 Pulse 134 H 06/26/17 15:10 Resp 19 06/26/17 15:15 BP 149/93 06/26/17 15:15 Pulse Ox 93 L 06/26/17 15:15 Intake & Output 06/25/17 06/26/17 06/26/17 18:59 06:59 18:59 Intake Total 1535 870 480 Output Total 850 1300 1000 Balance 685 430 -520 Weight 67 kg 67 kg Intake: IV 175 150 Diltiazem 125 mg In 45 Sodium Chloride 0.9% 100 ml @ 10 MG/HR 10 mls/hr IV .[id number] [facility] Rx#: [id number] Piperacillin-Tazobactam 3 50 50 .375 gm In Dextrose/Water 1 50ml.bag @ 12.5 mls/hr IVPB Q8HR [facility] Rx#: [id number] Sodium Chloride 0.9% 1, 80 100 000 ml @ 10 mls/hr IV . Q24H [facility] Rx#:[id number] Oral 80 Tube Feeding 1280 720 480 Output: Urine 850 1300 1000 Other: Voiding Method Indwelling Catheter Indwelling Catheter Indwelling Catheter # Bowel Movements 1 1 - Constitutional General appearance: Present: average body habitus, cooperative, no acute distress - Respiratory Respiratory: bilateral: rales - Cardiovascular Heart sounds: normal: S1, S2 - Peripheral edema foot Peripheral Edema: bilateral: Trace - Gastrointestinal General gastrointestinal: Present: normal bowel sounds, soft - Musculoskeletal Musculoskeletal: Present: generalized weakness - Psychiatric Psychiatric: Present: A&O x's 3, appropriate affect - Labs CBC & Chem 7: 06/26/17 05:22 06/26/17 05:22 Labs: Abnormal Lab Results - Last 24 Hours (Table) 06/26/17 06/26/17 Range/Units 05:22 05:22 RBC 3.24 L (3.80-5.40) m/uL Hgb 10.4 L (11.4-16.0) gm/dL Hct 33.5 L (34.0-46.0) % MCV 103.4 H (80.0-100.0) fL RDW 18.4 H (11.5-15.5) % Plt Count 89 L (150-450) k/uL Lymphocytes # (Manual) 0.72 L (1.0-4.8) k/uL Metamyelocytes # (Man) 0.16 H (0) k/uL Nucleated RBCs 1 H (0-0) /100 WBC Sodium 133 L (137-145) mmol/L Chloride 94 L (98-107) mmol/L Carbon Dioxide 32 H (22-30) mmol/L BUN 26 H (7-17) mg/dL Creatinine 0.37 L (0.52-1.04) mg/dL Glucose 179 H (74-99) mg/dL Assessment and Plan (1) Hemoptysis Narrative/Plan: None since 24 hours after admit. Likely r/t tumor bleeding and aspiration of blood. Status: Acute (2) Atrial fibrillation with RVR Narrative/Plan: Cardiology adjusting medications, pt is asymptomatic Status: Acute (3) Anemia Status: Chronic (4) Squamous cell carcinoma of head and neck Narrative/Plan: Pt has some more radiation planned, she was seen by Rad/Onc, she will follow up in outpatient setting as directed Status: Chronic (5) Anemia associated with acute blood loss Status: Acute (6) Antineoplastic chemotherapy induced anemia Status: Acute Plan: Pt not requiring transfusion for anemia, Hgb stable. Antibiotics switched to oral today anticipate discharge as soon as pt is back at baseline O2 needs Case discussed with PT/OT, pt will get up in chair for all meals. Family is very active in pt care, pt will likely be discharged to home with home care.
[2017-06-26] MEDS: DOXYCYCLINE 50 MG CAP PO SCH (19:42)
[2017-06-26] MEDS: ATORVASTATIN 20 MG TAB PEG/G-TUBE SCH (21:10)
[2017-06-26] MEDS: LATANOPROST 0.005% OPHTH DROPS 2.5 ML BTL RIGHT EYE SCH (21:10)
--- NOTE | 2017-06-26 21:51 | XR ---
EXAMINATION TYPE: XR chest 1V portable DATE OF EXAM: 06/26/2017 COMPARISON: Yesterday HISTORY: Short of breath TECHNIQUE: Single frontal view of the chest is obtained. FINDINGS: Heart is enlarged. There is pulmonary vascular congestion. There is blunting of costophren ic angles and more on the right side. There is right central venous catheter with tip in the superior vena cava. There are chest leads. IMPRESSION: Congestive heart failure with pleural effusions. Pulmonary edema is improved compared to yesterday.
[2017-06-27] MEDS: IPRATROPIUM-ALBUTEROL 3 ML NEB INHALATION SCH ×5 (03:24→20:05)
[2017-06-27] MEDS: ALPRAZolam 0.25 MG TAB PEG/G-TUBE PRN (04:00)
[2017-06-27] MEDS: METOPROLOL TARTRATE 5 MG/5 ML VIAL IVP SCH ×13 (04:49→21:46)
[2017-06-27] MEDS: FUROSEMIDE 10 MG/ML 4 ML VIAL IV SCH (05:36)
[2017-06-27] MEDS: AMIODARONE 450 MG in DEXTROSE 5% IN WATER 250 ML IV SCH ×2 (06:08)
[2017-06-27] MEDS: DOXYCYCLINE 50 MG CAP PO SCH ×2 (06:38→17:55)
[2017-06-27 07:32] LABS: Anion Gap 10 mmol/L; Blood Urea Nitrogen 24 mg/dL (7-17); Calcium 8.9 mg/dL (8.4-10.2); Carbon Dioxide 34 mmol/L (22-30); Chloride 90 mmol/L (98-107); Glucose 224 mg/dL (74-99); Non-African American GFR(MDRD) >60 (>60 ml/min/1.73 sqM); Potassium 4.1 mmol/L (3.5-5.1); Sodium 134 mmol/L (137-145)
[2017-06-27] MEDS: BUDESONIDE 0.5 MG/2 ML NEBU INHALATION SCH ×2 (07:54→20:05)
--- NOTE | 2017-06-27 08:51 | XR ---
EXAMINATION TYPE: XR chest 2V DATE OF EXAM: 06/27/2017 COMPARISON: 06/26/2017 TECHNIQUE: PA and lateral views submitted. HISTORY: Abnormal x-ray FINDINGS: Heart is enlarged and there is a Mediport catheter with bilateral infiltrate and small effusion and d iffuse interstitial pattern. Thorax. Atherosclerotic change of the aorta. Her graft diffuse osteopeni a and arthritic change of the shoulders. IMPRESSION: 1. COPD, cardiomegaly and diffuse interstitial pattern. Correlate for venous congestion versus lympha ngitic metastases. Small effusions and basilar infiltrate noted.
[2017-06-27] MEDS: METOPROLOL TARTRATE 50 MG TAB PO SCH ×2 (08:52→20:34)
[2017-06-27] MEDS: MAGNESIUM OXIDE 400 MG TAB PEG/G-TUBE SCH ×2 (08:52→20:35)
[2017-06-27] MEDS ORDERED: methylPREDNISolone SOD SUCCI 125 MG/2 ML VIAL IV SCH (09:30)
[2017-06-27] MEDS: methylPREDNISolone SOD SUCCI 125 MG/2 ML VIAL IV SCH ×2 (10:16→17:54)
--- NOTE | 2017-06-27 10:42 | P.PN ---
Subjective Principal diagnosis: Paroxysmal A. 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 The patient is also has a PEG tube. She was admitted to the hospital a few weeks ago with A. fib with RVR because she was not taking her medication because the PIC tube was not functioning normally. She was discharged from the hospital at that point in stable medical condition. She has been experiencing coughing blood and she was not feeling well for the last few days. Did not have any symptoms of chest pain. She has what it seems to be chronic shortness of breath according to her is unchanged compared to before. We get involved in her care because she is in A. fib with RVR. Beside that she was in congestive heart failure yesterday. On follow-up with the patient today on June 272016, she continues to be in A. fib with uncontrolled heart rates. Yesterday she was started on amiodarone IV and beside that she was on metoprolol at 100 mg by mouth twice a day. She continues to be in congestive heart failure clinically and also by chest x- ray. For that she is on Lasix 40 mg IV twice a day. Objective - Vital Signs Vital signs: Vital Signs Temp 97.9 F 06/27/17 09:00 Pulse 137 H 06/27/17 09:00 Resp 22 06/27/17 09:00 BP 151/91 06/27/17 09:00 Pulse Ox 94 L 06/27/17 09:00 Intake & Output 06/26/17 06/27/17 06/27/17 18:59 06:59 18:59 Intake Total 480 967.18 Output Total 1000 2525 Balance -520 -5449.82 Weight 67 kg 66.5 kg Intake: Intake, IV Titration 207.18 Amount Amiodarone 450 mg In 207.18 Dextrose 5% in Water 250 ml @ 1 MG/MIN 34.53 mls/ hr IV .[id number] [facility] Rx#: [id number] Tube Feeding 480 760 Output: Urine 1000 2525 Uretheral (Hopper) 1000 Other: Voiding Method Indwelling Catheter Indwelling Catheter Indwelling Catheter # Bowel Movements 1 - Constitutional General appearance: Present: mild distress - Respiratory Respiratory: bilateral: rales - Cardiovascular Rhythm: irregularly irregular - Labs CBC & Chem 7: 06/26/17 05:22 06/27/17 05:15 Labs: Abnormal Lab Results - Last 24 Hours (Table) 06/27/17 Range/Units 05:15 Sodium 134 L (137-145) mmol/L Chloride 90 L (98-107) mmol/L Carbon Dioxide 34 H (22-30) mmol/L BUN 24 H (7-17) mg/dL Creatinine 0.36 L (0.52-1.04) mg/dL Glucose 224 H (74-99) mg/dL Assessment and Plan Plan: This is a pleasant 72-year-old female patient with long-standing persistent atrial fibrillation as well as history of laryngeal cancer currently under chemotherapy radiation therapy was admitted to the hospital with coughing up blood. She is in A. fib with RVR along with congestive heart failure. I am going to DC the amiodarone IV and start her on amiodarone by mouth. Continue metoprolol with the current dose. Add Cardizem to the current medical treatment. Also I will DC the Lasix IV and put her on Lasix drip at 5. We'll continue following up with her.
[2017-06-27] MEDS: FUROSEMIDE 250 MG in SODIUM CHLORIDE 0.9% 225 ML IVP SCH (11:16)
--- NOTE | 2017-06-27 12:24 | P.PN ---
Subjective Principal diagnosis: Hemoptysis Ms. Jorgensen is a very pleasant female pt of Dr. 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 She presented with oropharyngeal mass, seen by Dr. Chase and Dr. Cisneros, ultimately referred to Dr. Hess at [facility]. CT on 01/10/17 revealed 7.4 cm oropharyngeal mass, biopsy on 01/22/17 revealed moderately differentiated squamous cell carcinoma, she had PEG tube placed for nutritional support. She started neoadjuvant carbo and weekly taxol chemotherapy at [facility] with Oncologist Dr. Comer. After she opted for treatment closer to home, she completed 4 cycles 05/17, she has had radiation treatments. Pt has had a cough for a few days, then last evening she cough up a copious amount of blood, a large clot, concern was a blood vessel had been eroded and pt was bleeding out so family brought her to ER. She had urgent nasopharyngeal laryngoscopy with Dr. Frazier who did not see any active bleeding, some old blood being coughed up, no gross tumors or friable mass were visualized. Pt continues to have cough, more congested sounding per family, pt denies fever , nausea, vomiting, chest pain, she does not feel her irrregular heart rate or a -fib, no abd pain, PEG is working well, no dysuria, hematuria, diarrhea, constipation, or bleeding, her feet have been swollen for a few days but they are better today, pt gets up with assistance to the bedside commode On 06/22/2017 the patient is being seen in follow-up. The patient is still still lethargic and quite weak. She is quite toxic from the systemic chemotherapy that was given to her last 3 weeks ago. She is not cough and blood and this has essentially subsided. She is on a Cardizem drip for rate control the rate of 5 mg an hour. She is on no anticoagulants. She is receiving enteral feeding for nutritional support through a PEG tube. She is also on IV Zosyn for a potential right lower lobe/right middle lobe pneumonia which can be of an aspiration type. No fever. No chills. No leukocytosis. No other complaints otherwise for now. She is resting comfortably in bed. On 06/23/2017 the patient is being seen for a follow-up. She is more short of breath compared to yesterday. She is having labored breathing. Minimal congested cough. She is unable to bring up any sputum. Very weak and lethargic and still suffering from toxicity of systemic chemotherapy. Chest x- ray was done and it showed development of bibasilar pulmonary ventilator and small effusions. As such, the patient was given a dose of Lasix 40 mg IV push. She started diuresing and 40 B also inserted. She is still on a Cardizem drip for rate control. She is on no anticoagulants. No active hemoptysis at this point. Still on IV Zosyn regarding possibility of bibasilar pneumonia. Condition is obviously worse compared to yesterday. The patient is quite lethargic. She remains to have a low white count of 6.8. Hemoglobin stable at 10.9 and there is no evidence of any acute bleeding at this point. On 06/24/2017 the patient is being seen in follow-up. She is quite lethargic and weak related to chemotherapy toxicity. She is less short of breath compared to yesterday and she is on Lasix IV. Her chest x-ray showing bibasilar pulmonary consolidation which could be fluid versus aspiration pneumonia. She is on IV Zosyn. Tolerating her tube feeds. On a Cardizem drip. Communicating. No hemoptysis. Hemoglobin stable at 10.6. The rest of the electrodes are all within normal limits. Patient was seen today on follow-up on 06/25/2017, no further episodes of hemoptysis, less weakness, less lethargy is noted. Denies being short of breath , and she seems to be doing relatively well compared to how she felt all along. Chest x-ray is consistent with interstitial infiltrates or possibly more or less in appearance of congestive heart failure and ventral infiltrates. Patient also has small bilateral pleural effusions, and a right Mediport is noted. Labs were reviewed hemoglobin is stable at 10.3. Electrolytes are normal BUN is 24 creatinine is 0.40. Liver enzymes were noted to be a bit elevated. Reevaluated today on 06/26/2017, no further episodes of hemoptysis, patient seems to be experiencing intermittent episodes of cough and congestion. No chest pain, no fever, no chills, and no further episodes of hemoptysis. CBC was reviewed relatively normal. Hemoglobin is 10.4. WBC count is 8.0. Platelets are 89,000. Basic metabolic profile is relatively normal, renal profile is normal. Chest x-ray from yesterday showed findings of possible component of mild congestive heart failure and interstitial edema. Patient remains on Lasix 40 mg IV push every 12 hours. She is also on multiple cardiac meds for atrial fibrillation. And hypertension. IV fluid is cut down to KVO. Reevaluated today on 06/27/2017, patient had some issues of cough congestion and wheezing overnight, she was given Lasix, and today she was placed on Solu- Medrol for coughing and wheezing. Patient remains on bronchodilators, and she is now on 50% Ventimask. Chest x-ray showed cardiomegaly and some interstitial pattern with small bilateral effusions likely secondary to congestive heart failure, doubt lymphangitic spread of malignancy. At any rate patient is very marginal at best, and clearly had expressed wishes as not to be on life support machine 90s, and has DO NOT RESUSCITATE CODE STATUS. Labs were reviewed WBC count is 8 hemoglobin is 10.4. Basic metabolic profile is relatively normal. Objective - Vital Signs Vital signs: Vital Signs Temp 97.9 F 06/27/17 09:00 Pulse 137 H 06/27/17 10:48 Resp 22 06/27/17 10:48 BP 151/91 06/27/17 09:00 Pulse Ox 94 L 06/27/17 09:00 Intake & Output 06/26/17 06/27/17 06/27/17 18:59 06:59 18:59 Intake Total 480 967.18 Output Total 1000 2525 Balance -520 -8269.82 Weight 67 kg 66.5 kg Intake: Intake, IV Titration 207.18 Amount Amiodarone 450 mg In 207.18 Dextrose 5% in Water 250 ml @ 1 MG/MIN 34.53 mls/ hr IV .Q7H31M [facility] Rx#: [id number] Tube Feeding 480 760 Output: Urine 1000 2525 Uretheral (Hopper) 1000 Other: Voiding Method Indwelling Catheter Indwelling Catheter Indwelling Catheter # Bowel Movements 1 - Exam Gen. appearance the patient has lost her hair to systemic chemotherapy. The patient is in mild respiratory distress, remains restless in bed, hence the Xanax dose was increased. Head is atraumatic normocephalic and the patient has developed her loss due to systemic chemotherapy. Neck is supple. There is some fullness over the right submandibular area. No direct tenderness. No rebound tenderness. No guarding. There is skin changes related to radiation therapy over the right neck area. Lung sounds are diminished bilaterally. Scattered rhonchi. Scattered crackles at lung bases bilaterally. Heart sounds are irregular, positive S1-S2 and there is no significant murmurs appreciated. Abdominal exam revealed normal bowel sounds. The abdomen was soft, non-tender, and without masses, organomegaly, or appreciable enlargement of the abdominal aorta. .Examination of the extremities revealed easily palpable radial, femoral and pedal pulses. There was no cyanosis, clubbing or edema. Neurologically the patient is awake and alert and following commands. No focal neurological deficit. Skin examination is negative for any ulcers or wounds or cellulitis. Skeletal examination showed no evidence of any arthritis or joint deformities. - Labs CBC & Chem 7: 06/26/17 05:22 06/27/17 05:15 Labs: Abnormal Lab Results - Last 24 Hours (Table) 06/27/17 Range/Units 05:15 Sodium 134 L (137-145) mmol/L Chloride 90 L (98-107) mmol/L Carbon Dioxide 34 H (22-30) mmol/L BUN 24 H (7-17) mg/dL Creatinine 0.36 L (0.52-1.04) mg/dL Glucose 224 H (74-99) mg/dL Assessment and Plan Plan: 1 hemoptysis. Resolved. On 06/22/2017 the patient's hemoptysis subsided and the patient is not coughing any further blood. No significant rest of the stress pH is on IV Zosyn for empiric antibiotic coverage regarding potential right lower lobe/right middle lobe aspiration pneumonia. No fever. No chills. Hemodynamically stable. On no anticoagulants. On 06/23/2017 the patient's hemoptysis has subsided and the patient is not having any active hemoptysis at this point. On 06/24/2017, the patient's hemoptysis has subsided. There is no signs of any active bleeding and hemoglobin is stable. On 06/25/2017, hemoptysis has completely subsided, patient seems to be less weak , more energetic, and less lethargic. On 06/26/2017, patient is feeling better overall, continues to have some pulmonary congestion, remains on bronchodilators and diuretics. On 06/27/2017, patient does not seem to be making significant improvement especially over the last 24 hours, she seems to be going downhill. Hence more Lasix was given, and she was given Solu-Medrol. Xanax dose was increased to 3 times daily. 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 The patient is being treated with a combination of chemoradiation therapy. Received carboplatinum and Taxol last chemotherapy was around 3 weeks ago. Received radiation therapy 3 COPD 4 worsening shortness of breath with development increased interstitial changes bilaterally, hence more Lasix was given. 5 chronic atrial fibrillation with rapid ventricular response currently on a Cardizem drip for rate control. The patient is on no anticoagulants 6 coronary artery disease with previous coronary intervention and stenting, currently stable 7 diabetes mellitus 8 hypertension 9 hyperlipidemia 10 obstructive sleep apnea noncompliant to CPAP therapy 11 skin cancer that was been [id number] smoker 13 macular degeneration 14 minimal troponin leak 15 limited emphysematous changes in the right middle lobe and right lower lobe. Pneumonia pneumonia of an aspiration type needs to be considered. 16 inability to swallow and the patient has enteral feeding for nutritional support Recommendation: Continue diuretics, continue antibiotics in the form of Zosyn, continue aspiration precautions, continue bronchodilators and steroids, overall picture and prognosis seems to be guarded, patient remains DO NOT RESUSCITATE CODE STATUS. Discussed her condition with her family members at bedside. Time with Patient: Less than 30
[2017-06-27] MEDS: SODIUM CHLORIDE 0.9% 1,000 ML IV SCH (16:06)
[2017-06-27] MEDS: ALPRAZolam 0.25 MG TAB PEG/G-TUBE SCH ×2 (17:55→22:28)
[2017-06-27] MEDS: DILTIAZEM ORAL 60 MG TAB PO SCH ×2 (17:55→22:29)
[2017-06-27] MEDS: ATORVASTATIN 20 MG TAB PEG/G-TUBE SCH (20:34)
[2017-06-27] MEDS: LATANOPROST 0.005% OPHTH DROPS 2.5 ML BTL RIGHT EYE SCH (20:34)
[2017-06-27] MEDS: AMIODARONE 200 MG TAB PO SCH (20:34)
--- NOTE | 2017-06-27 23:30 | P.PN ---
Subjective patient is more short of breath today. She is currently on Ventimask. Urine output continues to be good. No recurrence of hemoptysis. Objective - Vital Signs Vital signs: Vital Signs Temp 97.9 F 06/27/17 16:05 Pulse 115 H 06/27/17 16:19 Resp 20 06/27/17 16:05 BP 143/81 06/27/17 16:05 Pulse Ox 92 L 06/27/17 20:05 Intake & Output 06/27/17 06/27/17 06/28/17 06:59 18:59 06:59 Intake Total 967.18 Output Total 2525 1100 Balance -1557.82 -1100 Weight 66.5 kg Intake: Intake, IV Titration 207.18 Amount Amiodarone 450 mg In 207.18 Dextrose 5% in Water 250 ml @ 1 MG/MIN 34.53 mls/ hr IV .Q7H31M [facility] Rx#: [id number] Tube Feeding 760 Output: Urine 2525 1100 Uretheral (Hopper) 1000 Other: Voiding Method Indwelling Catheter Indwelling Catheter # Bowel Movements 1 1 - Constitutional General appearance: Present: mild distress - EENT Eyes: Present: EOMI, PERRLA ENT: Present: hearing grossly normal, normal oropharynx - Respiratory Respiratory: bilateral: diminished, prolonged expiration - Cardiovascular Rhythm: irregularly irregular Heart sounds: normal: S1, S2 - Gastrointestinal General gastrointestinal: Present: normal bowel sounds, soft - Integumentary Integumentary: Present: normal - Neurologic Neurologic: Present: CNII-XII intact - Musculoskeletal Musculoskeletal: Present: generalized weakness, strength equal bilaterally - Psychiatric Psychiatric: Present: A&O x's 3 - Labs CBC & Chem 7: 06/26/17 05:22 06/27/17 05:15 Labs: Abnormal Lab Results - Last 24 Hours (Table) 06/27/17 Range/Units 05:15 Sodium 134 L (137-145) mmol/L Chloride 90 L (98-107) mmol/L Carbon Dioxide 34 H (22-30) mmol/L BUN 24 H (7-17) mg/dL Creatinine 0.36 L (0.52-1.04) mg/dL Glucose 224 H (74-99) mg/dL Assessment and Plan (1) SOB (shortness of breath) Narrative/Plan: The patient had improved yesterday, with diuresis. However respiratory status is worse today. I could not appreciate crackles on exam. Chest x-ray did not show worsening condition. Clinically this appeared to be due to COPD exacerbation. Continue bronchodilators. IV steroids are started. Case was discussed with pulmonary medicine service to reevaluate the patient Status: Acute (2) Hemoptysis Narrative/Plan: no recurrence of the same. Hemoglobin remains stable Status: Acute (3) Atrial fibrillation with RVR Narrative/Plan: patient's heart rate continues to be elevated. She is currently on amiodarone drip. Cardiology is following. Status: Acute (4) Throat cancer Status: Acute
[2017-06-28] MEDS: IPRATROPIUM-ALBUTEROL 3 ML NEB INHALATION SCH ×7 (00:09→23:42)
[2017-06-28] MEDS: methylPREDNISolone SOD SUCCI 125 MG/2 ML VIAL IV SCH ×2 (00:54→05:58)
[2017-06-28] MEDS: DOXYCYCLINE 50 MG CAP PO SCH ×2 (05:57→16:59)
[2017-06-28 06:25] LABS: Anisocytosis Slight; CH 31.8; CHCM 30.2; HCT 33.3 % (34.0-46.0); HDW 2.87; HGB 10.1 gm/dL (11.4-16.0); Hypochromasia Marked; MCH 32.2 pg (25.0-35.0); MCHC 30.5 g/dL (31.0-37.0); MCV 105.7 fL (80.0-100.0); Mean Platelet Volume 9.1; RBC 3.15 m/uL (3.80-5.40); RDW 18.4 % (11.5-15.5); WBC 7.5 k/uL (3.8-10.6)
[2017-06-28 06:33] LABS: Anion Gap 8 mmol/L; Blood Urea Nitrogen 29 mg/dL (7-17); Calcium 8.7 mg/dL (8.4-10.2); Carbon Dioxide 35 mmol/L (22-30); Chloride 90 mmol/L (98-107); Glucose 410 mg/dL (74-99); Macrocytosis Marked; Magnesium 1.8 mg/dL (1.6-2.3); Non-African American GFR(MDRD) >60 (>60 ml/min/1.73 sqM); Potassium 3.6 mmol/L (3.5-5.1); Sodium 133 mmol/L (137-145)
[2017-06-28] MEDS: BUDESONIDE 0.5 MG/2 ML NEBU INHALATION SCH ×2 (07:52→21:04)
--- NOTE | 2017-06-28 08:32 | XR ---
EXAMINATION TYPE: XR chest 1V portable DATE OF EXAM: 06/28/2017 COMPARISON: 06/27/2017 HISTORY: Shortness of breath TECHNIQUE: Single frontal view of the chest is obtained. FINDINGS: Mediport catheter with cardiomegaly noted. Underlying COPD and diffuse interstitial patter n seen. Increasing consolidation and pleural effusion on the left. IMPRESSION: 1. Increasing left lower lobe infiltrate and small effusion. Correlate for underlying pneumonia. Mild central venous congestion superimposed on a background of COPD also in the differential diagnosis.
[2017-06-28] MEDS: AMIODARONE 200 MG TAB PO SCH ×2 (09:08→21:31)
[2017-06-28] MEDS: ALPRAZolam 0.25 MG TAB PEG/G-TUBE SCH ×3 (09:08→21:33)
[2017-06-28] MEDS: MAGNESIUM OXIDE 400 MG TAB PEG/G-TUBE SCH ×2 (09:09→21:30)
[2017-06-28] MEDS: DILTIAZEM ORAL 60 MG TAB PO SCH (09:09)
[2017-06-28] MEDS: METOPROLOL TARTRATE 50 MG TAB PO SCH ×2 (09:09→21:31)
--- NOTE | 2017-06-28 09:15 | P.PN ---
Subjective Principal diagnosis: Paroxysmal A. 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 The patient is also has a PEG tube. She was admitted to the hospital a few weeks ago with A. fib with RVR because she was not taking her medication because the PIC tube was not functioning normally. She was discharged from the hospital at that point in stable medical condition. She has been experiencing coughing blood and she was not feeling well for the last few days. Did not have any symptoms of chest pain. She has what it seems to be chronic shortness of breath according to her is unchanged compared to before. We get involved in her care because she is in A. fib with RVR. Beside that she was in congestive heart failure yesterday. On follow-up with the patient today on June [id number], she continues to be in A. fib with uncontrolled heart rates. Shortness of breath seems to be slightly better today. She has done well during the night. Objective - Vital Signs Vital signs: Vital Signs Temp 97.0 F L 06/28/17 04:00 Pulse 122 H 06/28/17 04:00 Resp 22 06/28/17 08:00 BP 119/61 06/28/17 04:00 Pulse Ox 94 L 06/28/17 07:52 Intake & Output 06/27/17 06/28/17 06/28/17 18:59 06:59 18:59 Intake Total 900 0 Output Total 1100 800 Balance -1100 100 0 Weight 67.5 kg Intake: Oral 0 Tube Feeding 900 Output: Urine 1100 800 Other: Voiding Method Indwelling Catheter Indwelling Catheter Indwelling Catheter # Bowel Movements 1 1 - Constitutional General appearance: Present: no acute distress - Respiratory Respiratory: bilateral: diminished - Cardiovascular Rhythm: irregularly irregular - Labs CBC & Chem 7: 06/28/17 05:15 06/28/17 05:15 Labs: Abnormal Lab Results - Last 24 Hours (Table) 06/28/17 06/28/17 Range/Units 05:15 05:15 RBC 3.15 L (3.80-5.40) m/uL Hgb 10.1 L (11.4-16.0) gm/dL Hct 33.3 L (34.0-46.0) % MCV 105.7 H (80.0-100.0) fL MCHC 30.5 L (31.0-37.0) g/dL RDW 18.4 H (11.5-15.5) % Plt Count 73 L (150-450) k/uL Sodium 133 L (137-145) mmol/L Chloride 90 L (98-107) mmol/L Carbon Dioxide 35 H (22-30) mmol/L BUN 29 H (7-17) mg/dL Creatinine 0.30 L (0.52-1.04) mg/dL Glucose 410 H (74-99) mg/dL Assessment and Plan Plan: This is a pleasant 72-year-old female patient with long-standing persistent atrial fibrillation as well as history of laryngeal cancer currently under chemotherapy radiation therapy was admitted to the hospital with coughing up blood. She is in A. fib with RVR along with congestive heart failure. I am going to increase the Lasix drip to 10 mg per hour. Increase the Cardizem by mouth to 90 mg 3 times a day. Continue following up with her.
[2017-06-28] MEDS ORDERED: DILTIAZEM ORAL 30 MG TAB PO ONE (09:30)
[2017-06-28 11:58] LABS: Glucose,Whole Blood 419 mg/dL (75-99)
[2017-06-28] MEDS: SODIUM CHLORIDE 0.9% 1,000 ML IV SCH (12:07)
[2017-06-28] MEDS: FUROSEMIDE 250 MG in SODIUM CHLORIDE 0.9% 225 ML IVP SCH ×2 (12:08→22:08)
--- NOTE | 2017-06-28 12:50 | P.PN ---
Subjective Principal diagnosis: Hemoptysis, congestive heart failure, and atrial fibrillation Ms. Jorgensen is a very pleasant female pt of Dr. 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 She presented with oropharyngeal mass, seen by Dr. Chase and Dr. Cisneros, ultimately referred to Dr. Hess at [facility]. CT on 01/10/17 revealed 7.4 cm oropharyngeal mass, biopsy on 01/22/17 revealed moderately differentiated squamous cell carcinoma, she had PEG tube placed for nutritional support. She started neoadjuvant carbo and weekly taxol chemotherapy at [facility] with Oncologist Dr. Comer. After 1st she opted for treatment closer to home, she completed 4 cycles 05/17, she has had radiation treatments. Pt has had a cough for a few days, then last evening she cough up a copious amount of blood, a large clot, concern was a blood vessel had been eroded and pt was bleeding out so family brought her to ER. She had urgent nasopharyngeal laryngoscopy with Dr. Frazier who did not see any active bleeding, some old blood being coughed up, no gross tumors or friable mass were visualized. Pt continues to have cough, more congested sounding per family, pt denies fever , nausea, vomiting, chest pain, she does not feel her irrregular heart rate or a -fib, no abd pain, PEG is working well, no dysuria, hematuria, diarrhea, constipation, or bleeding, her feet have been swollen for a few days but they are better today, pt gets up with assistance to the bedside commode On 06/22/2017 the patient is being seen in follow-up. The patient is still still lethargic and quite weak. She is quite toxic from the systemic chemotherapy that was given to her last 3 weeks ago. She is not cough and blood and this has essentially subsided. She is on a Cardizem drip for rate control the rate of 5 mg an hour. She is on no anticoagulants. She is receiving enteral feeding for nutritional support through a PEG tube. She is also on IV Zosyn for a potential right lower lobe/right middle lobe pneumonia which can be of an aspiration type. No fever. No chills. No leukocytosis. No other complaints otherwise for now. She is resting comfortably in bed. On 06/23/2017 the patient is being seen for a follow-up. She is more short of breath compared to yesterday. She is having labored breathing. Minimal congested cough. She is unable to bring up any sputum. Very weak and lethargic and still suffering from toxicity of systemic chemotherapy. Chest x- ray was done and it showed development of bibasilar pulmonary ventilator and small effusions. As such, the patient was given a dose of Lasix 40 mg IV push. She started diuresing and 40 B also inserted. She is still on a Cardizem drip for rate control. She is on no anticoagulants. No active hemoptysis at this point. Still on IV Zosyn regarding possibility of bibasilar pneumonia. Condition is obviously worse compared to yesterday. The patient is quite lethargic. She remains to have a low white count of 6.8. Hemoglobin stable at 10.9 and there is no evidence of any acute bleeding at this point. On 06/24/2017 the patient is being seen in follow-up. She is quite lethargic and weak related to chemotherapy toxicity. She is less short of breath compared to yesterday and she is on Lasix IV. Her chest x-ray showing bibasilar pulmonary consolidation which could be fluid versus aspiration pneumonia. She is on IV Zosyn. Tolerating her tube feeds. On a Cardizem drip. Communicating. No hemoptysis. Hemoglobin stable at 10.6. The rest of the electrodes are all within normal limits. Patient was seen today on follow-up on 06/25/2017, no further episodes of hemoptysis, less weakness, less lethargy is noted. Denies being short of breath , and she seems to be doing relatively well compared to how she felt all along. Chest x-ray is consistent with interstitial infiltrates or possibly more or less in appearance of congestive heart failure and ventral infiltrates. Patient also has small bilateral pleural effusions, and a right Mediport is noted. Labs were reviewed hemoglobin is stable at 10.3. Electrolytes are normal BUN is 24 creatinine is 0.40. Liver enzymes were noted to be a bit elevated. Reevaluated today on 06/26/2017, no further episodes of hemoptysis, patient seems to be experiencing intermittent episodes of cough and congestion. No chest pain, no fever, no chills, and no further episodes of hemoptysis. CBC was reviewed relatively normal. Hemoglobin is 10.4. WBC count is 8.0. Platelets are 89,000. Basic metabolic profile is relatively normal, renal profile is normal. Chest x-ray from yesterday showed findings of possible component of mild congestive heart failure and interstitial edema. Patient remains on Lasix 40 mg IV push every 12 hours. She is also on multiple cardiac meds for atrial fibrillation. And hypertension. IV fluid is cut down to KVO. Reevaluated today on 06/27/2017, patient had some issues of cough congestion and wheezing overnight, she was given Lasix, and today she was placed on Solu- Medrol for coughing and wheezing. Patient remains on bronchodilators, and she is now on 50% Ventimask. Chest x-ray showed cardiomegaly and some interstitial pattern with small bilateral effusions likely secondary to congestive heart failure, doubt lymphangitic spread of malignancy. At any rate patient is very marginal at best, and clearly had expressed wishes as not to be on life support machine 90s, and has DO NOT RESUSCITATE CODE STATUS. Labs were reviewed WBC count is 8 hemoglobin is 10.4. Basic metabolic profile is relatively normal. Reevaluated on 06/28/2017, significant improvement noted in the last 24 hours. Hardly any cough, no wheezing, no congestion, remains on Ventimask. Apparently the patient responded quite well to the use of Solu-Medrol however her sugars are running high and I will go ahead and cut down the dose a bit. WBC count 7.5 hemoglobin is 10.1 basic metabolic profile is normal renal profile is normal. Patient continues to have intermittent episodes of A. fib and heart rate sometimes seems to be poorly controlled. Objective - Vital Signs Vital signs: Vital Signs Temp 98.2 F 06/28/17 09:00 Pulse 98 06/28/17 11:36 Resp 18 06/28/17 12:00 BP 145/83 06/28/17 09:00 Pulse Ox 91 L 06/28/17 11:57 Intake & Output 06/27/17 06/28/17 06/28/17 18:59 06:59 18:59 Intake Total 900 113.667 Output Total 1100 800 Balance -1100 100 113.667 Weight 67.5 kg 67.5 kg Intake: Intake, IV Titration 113.667 Amount Furosemide 250 mg In 113.667 Sodium Chloride 0.9% 225 ml @ 10 MG/HR 10 mls/hr IVP .Q24H [facility] Rx#: [id number] Oral 0 Tube Feeding 900 Output: Urine 1100 800 Other: Voiding Method Indwelling Catheter Indwelling Catheter Indwelling Catheter # Bowel Movements 1 1 - Exam Gen. appearance the patient has lost her hair to systemic chemotherapy. Comfortable, in no form of respiratory distress, remains on Ventimask. Head is atraumatic normocephalic and the patient has developed her loss due to systemic chemotherapy. Neck is supple. There is some fullness over the right submandibular area. No direct tenderness. No rebound tenderness. No guarding. There is skin changes related to radiation therapy over the right neck area. Lung sounds are diminished bilaterally. No crackles, no rhonchi, no wheezes. Heart sounds are irregular, positive S1-S2 and there is no significant murmurs appreciated. Abdominal exam revealed normal bowel sounds. The abdomen was soft, non-tender, and without masses, organomegaly, or appreciable enlargement of the abdominal aorta. .Examination of the extremities revealed easily palpable radial, femoral and pedal pulses. There was no cyanosis, clubbing or edema. Neurologically the patient is awake and alert and following commands. No focal neurological deficit. Skin examination is negative for any ulcers or wounds or cellulitis. Skeletal examination showed no evidence of any arthritis or joint deformities. - Labs CBC & Chem 7: 06/28/17 05:15 06/28/17 05:15 Labs: Abnormal Lab Results - Last 24 Hours (Table) 06/28/17 06/28/17 06/28/17 Range/Units 05:15 05:15 11:47 RBC 3.15 L (3.80-5.40) m/uL Hgb 10.1 L (11.4-16.0) gm/dL Hct 33.3 L (34.0-46.0) % MCV 105.7 H (80.0-100.0) fL MCHC 30.5 L (31.0-37.0) g/dL RDW 18.4 H (11.5-15.5) % Plt Count 73 L (150-450) k/uL Sodium 133 L (137-145) mmol/L Chloride 90 L (98-107) mmol/L Carbon Dioxide 35 H (22-30) mmol/L BUN 29 H (7-17) mg/dL Creatinine 0.30 L (0.52-1.04) mg/dL Glucose 410 H (74-99) mg/dL POC Glucose (mg/dL) 419 H (75-99) mg/dL Assessment and Plan Plan: 1 hemoptysis. Resolved. On 06/22/2017 the patient's hemoptysis subsided and the patient is not coughing any further blood. No significant rest of the stress pH is on IV Zosyn for empiric antibiotic coverage regarding potential right lower lobe/right middle lobe aspiration pneumonia. No fever. No chills. Hemodynamically stable. On no anticoagulants. On 06/23/2017 the patient's hemoptysis has subsided and the patient is not having any active hemoptysis at this point. On 06/24/2017, the patient's hemoptysis has subsided. There is no signs of any active bleeding and hemoglobin is stable. On 06/25/2017, hemoptysis has completely subsided, patient seems to be less weak , more energetic, and less lethargic. On 06/26/2017, patient is feeling better overall, continues to have some pulmonary congestion, remains on bronchodilators and diuretics. On 06/27/2017, patient does not seem to be making significant improvement especially over the last 24 hours, she seems to be going downhill. Hence more Lasix was given, and she was given Solu-Medrol. Xanax dose was increased to 3 times daily. On 06/20/2017, patient seems to be responding well to Solu-Medrol, however sugars are running high and will cut down the dose of that. Otherwise continue present treatment plan. 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 The patient is being treated with a combination of chemoradiation therapy. Received carboplatinum and Taxol last chemotherapy was around 3 weeks ago. Received radiation therapy 3 COPD 4 worsening shortness of breath with development increased interstitial changes bilaterally, hence more Lasix was given. 5 chronic atrial fibrillation with rapid ventricular response currently on a Cardizem drip for rate control. The patient is on no anticoagulants 6 coronary artery disease with previous coronary intervention and stenting, currently stable 7 diabetes mellitus 8 hypertension 9 hyperlipidemia 10 obstructive sleep apnea noncompliant to CPAP therapy 11 skin cancer that was been [id number] smoker 13 macular degeneration 14 minimal troponin leak 15 limited emphysematous changes in the right middle lobe and right lower lobe. Pneumonia pneumonia of an aspiration type needs to be considered. 16 inability to swallow and the patient has enteral feeding for nutritional support Recommendation: Continue diuretics, continue antibiotics in the form of Zosyn, continue aspiration precautions, continue bronchodilators and steroids, overall picture and prognosis seems to be guarded, patient remains DO NOT RESUSCITATE CODE STATUS. Discussed her condition with her family members at bedside. Time with Patient: Less than 30
--- NOTE | 2017-06-28 16:57 | P.PN ---
Subjective The patient's breathing is improved today. However blood sugars have been running high. Objective - Vital Signs Vital signs: Vital Signs Temp 98.1 F 06/28/17 16:26 Pulse 126 H 06/28/17 16:26 Resp 20 06/28/17 16:26 BP 127/72 06/28/17 16:26 Pulse Ox 92 L 06/28/17 16:26 Intake & Output 06/27/17 06/28/17 06/28/17 18:59 06:59 18:59 Intake Total 900 113.667 Output Total 1100 800 400 Balance -1100 100 -286.333 Weight 67.5 kg 67.5 kg Intake: Intake, IV Titration 113.667 Amount Furosemide 250 mg In 113.667 Sodium Chloride 0.9% 225 ml @ 10 MG/HR 10 mls/hr IVP .Q24H [facility] Rx#: [id number] Oral 0 Tube Feeding 900 Output: Urine 1100 800 400 Other: Voiding Method Indwelling Catheter Indwelling Catheter Indwelling Catheter # Bowel Movements 1 1 - Constitutional General appearance: Present: no acute distress - EENT Eyes: Present: EOMI, PERRLA ENT: Present: hearing grossly normal, normal oropharynx - Respiratory Respiratory: bilateral: diminished (Overall air entry is improved), rales (Now minimal) - Cardiovascular Rhythm: irregularly irregular Heart sounds: normal: S1, S2 - Gastrointestinal General gastrointestinal: Present: normal bowel sounds, soft - Musculoskeletal Musculoskeletal: Present: generalized weakness, strength equal bilaterally - Psychiatric Psychiatric: Present: A&O x's 3, appropriate affect - Labs CBC & Chem 7: 06/28/17 05:15 06/28/17 05:15 Labs: Abnormal Lab Results - Last 24 Hours (Table) 06/28/17 06/28/17 06/28/17 Range/Units 05:15 05:15 11:47 RBC 3.15 L (3.80-5.40) m/uL Hgb 10.1 L (11.4-16.0) gm/dL Hct 33.3 L (34.0-46.0) % MCV 105.7 H (80.0-100.0) fL MCHC 30.5 L (31.0-37.0) g/dL RDW 18.4 H (11.5-15.5) % Plt Count 73 L (150-450) k/uL Sodium 133 L (137-145) mmol/L Chloride 90 L (98-107) mmol/L Carbon Dioxide 35 H (22-30) mmol/L BUN 29 H (7-17) mg/dL Creatinine 0.30 L (0.52-1.04) mg/dL Glucose 410 H (74-99) mg/dL POC Glucose (mg/dL) 419 H (75-99) mg/dL Assessment and Plan (1) SOB (shortness of breath) Narrative/Plan: This was initially felt to be due to congestive heart failure, and then more due to COPD exacerbation yesterday. Patient has improved significantly. Steroid dose was reduced by pulmonary. Continue to monitor x-ray. Patient is continuing on diuretics, as well as broncho- dilators and oxygen. Defer to pulmonary and cardiology for continued management Status: Acute (2) Hemoptysis Narrative/Plan: Resolved. No further drop in hemoglobin noted Status: Acute (3) Atrial fibrillation with RVR Narrative/Plan: Patient has been switched to oral amiodarone and Cardizem. Heart rate is still in the 115+ range. Some of the heart rate elevation, would also be due to her pulmonary issues and beta agonist bronchodilator therapy. Defer to cardiology for continued management Status: Acute (4) Throat cancer Narrative/Plan: Patient is able to swallow small boluses. She is tolerating tube feeds well. Status: Acute (5) Hyperglycemia Narrative/Plan: This is more marked today, her blood sugars greater than 400, likely due to high-dose steroids. Patient has been placed on insulin sliding scale. Steroid dose has been reduced. The patient does not have a pre-existing history of diabetes Status: Acute
[2017-06-28 16:59] LABS: Glucose,Whole Blood 473 mg/dL (75-99)
[2017-06-28] MEDS: DILTIAZEM ORAL 30 MG TAB PO SCH ×2 (16:59→21:31)
[2017-06-28] MEDS: INSULIN LISPRO (humaLOG) 300 UNIT/3 ML VIAL SQ SCH ×2 (17:00→22:29)
[2017-06-28] MEDS: methylPREDNISolone SOD SUCCI 40 MG/ML 1 ML VIAL IV SCH ×2 (17:00→23:20)
[2017-06-28] MEDS ORDERED: INSULIN LISPRO (humaLOG) 300 UNIT/3 ML VIAL SQ SCH (17:30)
[2017-06-28 21:02] LABS: Glucose,Whole Blood 367 mg/dL (75-99)
[2017-06-28] MEDS: ATORVASTATIN 20 MG TAB PEG/G-TUBE SCH (21:30)
[2017-06-28] MEDS: LATANOPROST 0.005% OPHTH DROPS 2.5 ML BTL RIGHT EYE SCH (21:31)
[2017-06-29] MEDS: IPRATROPIUM-ALBUTEROL 3 ML NEB INHALATION SCH ×6 (03:04→23:42)
[2017-06-29] MEDS: DOXYCYCLINE 50 MG CAP PO SCH ×2 (06:05→21:26)
[2017-06-29 06:10] LABS: Glucose,Whole Blood 275 mg/dL (75-99)
[2017-06-29] MEDS: INSULIN LISPRO (humaLOG) 300 UNIT/3 ML VIAL SQ SCH ×2 (06:18→14:07)
[2017-06-29 07:10] LABS: ALT 113 U/L (9-52); AST 56 U/L (14-36); Alkaline Phosphatase 315 U/L (38-126); Anion Gap 9 mmol/L; Blood Urea Nitrogen 41 mg/dL (7-17); Calcium 8.8 mg/dL (8.4-10.2); Carbon Dioxide 34 mmol/L (22-30); Chloride 95 mmol/L (98-107); Glucose 261 mg/dL (74-99); Non-African American GFR(MDRD) >60 (>60 ml/min/1.73 sqM); Potassium 3.7 mmol/L (3.5-5.1); Sodium 138 mmol/L (137-145); Total Bilirubin 0.5 mg/dL (0.2-1.3); Total Protein 5.6 g/dL (6.3-8.2)
--- NOTE | 2017-06-29 08:28 | XR ---
EXAMINATION TYPE: XR chest 1V portable DATE OF EXAM: 06/29/2017 COMPARISON: 06/28/2017 HISTORY: COPD FINDINGS: There are bilateral pleural effusions with cardiomegaly and bibasilar infiltrate. There is a diffuse interstitial pattern. Mediport catheter noted. No pneumothorax. Hyperinflation suggests COPD. IMPRESSION: 1. COPD, cardiomegaly and bilateral infiltrate and pleural effusion. Correlate for mild CHF.
[2017-06-29] MEDS: BUDESONIDE 0.5 MG/2 ML NEBU INHALATION SCH ×2 (08:56→20:03)
[2017-06-29] MEDS: DILTIAZEM ORAL 30 MG TAB PO SCH ×3 (09:44→21:26)
[2017-06-29] MEDS: AMIODARONE 200 MG TAB PO SCH ×2 (09:44→21:26)
[2017-06-29] MEDS: methylPREDNISolone SOD SUCCI 40 MG/ML 1 ML VIAL IV SCH ×3 (09:44→23:57)
[2017-06-29] MEDS: MAGNESIUM OXIDE 400 MG TAB PEG/G-TUBE SCH ×2 (09:45→23:57)
[2017-06-29] MEDS: METOPROLOL TARTRATE 50 MG TAB PO SCH ×2 (09:45→21:26)
[2017-06-29] MEDS: ALPRAZolam 0.25 MG TAB PEG/G-TUBE SCH ×3 (09:47→21:27)
--- NOTE | 2017-06-29 09:48 | P.PN ---
Subjective Principal diagnosis: Paroxysmal A. 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 The patient is also has a PEG tube. She was admitted to the hospital a few weeks ago with A. fib with RVR because she was not taking her medication because the PIC tube was not functioning normally. She was discharged from the hospital at that point in stable medical condition and without any anticoagulation. She has been experiencing coughing blood and she was not feeling well for the last few days. Did not have any symptoms of chest pain. She has what it seems to be chronic shortness of breath according to her is unchanged compared to before. We get involved in her care because she is in A. fib with RVR. Beside that she was in congestive heart failure yesterday. On follow-up with the patient today on June [id number], she seems to be feeling better and clinically she started turning around. The heart rate definitely is better on the current medical regimen which includes amiodarone by mouth, metoprolol by mouth, and Cardizem by mouth. All these medications are given to her through the PEG tube. She is not on any anticoagulation because of the bleeding issue. Interim of congestive heart failure, she has been diuresing very well on the current dose of Lasix drip which is 10 mg per hour. The chest x-ray today continues to show finding of bilateral pleural effusion and mild CHF. The creatinine has been stable. I would continue diuresing the patient. Objective - Vital Signs Vital signs: Vital Signs Temp 97.1 F L 06/29/17 09:42 Pulse 153 H 06/29/17 09:42 Resp 20 06/29/17 09:42 BP 155/97 06/29/17 09:42 Pulse Ox 97 06/29/17 09:42 Intake & Output 06/28/17 06/29/17 06/29/17 18:59 06:59 18:59 Intake Total 113.667 770 Output Total 400 1500 Balance -286.333 -730 Weight 67.5 kg 66.5 kg Intake: Intake, IV Titration 113.667 50 Amount Furosemide 250 mg In 113.667 50 Sodium Chloride 0.9% 225 ml @ 10 MG/HR 10 mls/hr IVP .Q24H [facility] Rx#: [id number] Oral 0 Tube Feeding 720 Output: Urine 400 1500 Uretheral (Hopper) 350 Other: Voiding Method Indwelling Catheter Indwelling Catheter - Constitutional General appearance: Present: no acute distress - Respiratory Respiratory: bilateral: rales - Cardiovascular Rhythm: irregularly irregular - Labs CBC & Chem 7: 06/28/17 05:15 06/29/17 05:28 Labs: Abnormal Lab Results - Last 24 Hours (Table) 06/28/17 06/28/17 06/28/17 Range/Units 11:47 16:43 21:00 Chloride (98-107) mmol/L Carbon Dioxide (22-30) mmol/L BUN (7-17) mg/dL Creatinine (0.52-1.04) mg/dL Glucose (74-99) mg/dL POC Glucose (mg/dL) 419 H 473 H 367 H (75-99) mg/dL AST (14-36) U/L ALT (9-52) U/L Alkaline Phosphatase (38-126) U/L Total Protein (6.3-8.2) g/dL Albumin (3.5-5.0) g/dL 06/29/17 06/29/17 Range/Units 05:28 06:08 Chloride 95 L (98-107) mmol/L Carbon Dioxide 34 H (22-30) mmol/L BUN 41 H (7-17) mg/dL Creatinine 0.43 L (0.52-1.04) mg/dL Glucose 261 H (74-99) mg/dL POC Glucose (mg/dL) 275 H (75-99) mg/dL AST 56 H (14-36) U/L ALT 113 H (9-52) U/L Alkaline Phosphatase 315 H (38-126) U/L Total Protein 5.6 L (6.3-8.2) g/dL Albumin 2.8 L (3.5-5.0) g/dL Assessment and Plan Plan: This is a pleasant 72-year-old female patient with long-standing persistent atrial fibrillation as well as history of laryngeal cancer currently under chemotherapy radiation therapy was admitted to the hospital with coughing up blood. She is in A. fib with RVR along with congestive heart failure. Continue the current medical treatment including the Lasix drip and continue monitor the kidney function and electrolytes. Beside that continue the oral AV chandana kelly agents with metoprolol, Cardizem, and amiodarone.
[2017-06-29 12:04] LABS: Glucose,Whole Blood 296 mg/dL (75-99)
--- NOTE | 2017-06-29 15:41 | P.PN ---
Subjective Principal diagnosis: Hemoptysis, congestive heart failure, and atrial fibrillation Ms. Jorgensen is a very pleasant female pt of Dr. 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 She presented with oropharyngeal mass, seen by Dr. Chase and Dr. Cisneros, ultimately referred to Dr. Hess at [facility]. CT on 01/10/17 revealed 7.4 cm oropharyngeal mass, biopsy on 01/22/17 revealed moderately differentiated squamous cell carcinoma, she had PEG tube placed for nutritional support. She started neoadjuvant carbo and weekly taxol chemotherapy at [facility] with Oncologist Dr. Comer. After 1st she opted for treatment closer to home, she completed 4 cycles 05/17, she has had radiation treatments. Pt has had a cough for a few days, then last evening she cough up a copious amount of blood, a large clot, concern was a blood vessel had been eroded and pt was bleeding out so family brought her to ER. She had urgent nasopharyngeal laryngoscopy with Dr. Frazier who did not see any active bleeding, some old blood being coughed up, no gross tumors or friable mass were visualized. Pt continues to have cough, more congested sounding per family, pt denies fever , nausea, vomiting, chest pain, she does not feel her irrregular heart rate or a -fib, no abd pain, PEG is working well, no dysuria, hematuria, diarrhea, constipation, or bleeding, her feet have been swollen for a few days but they are better today, pt gets up with assistance to the bedside commode On 06/22/2017 the patient is being seen in follow-up. The patient is still still lethargic and quite weak. She is quite toxic from the systemic chemotherapy that was given to her last 3 weeks ago. She is not cough and blood and this has essentially subsided. She is on a Cardizem drip for rate control the rate of 5 mg an hour. She is on no anticoagulants. She is receiving enteral feeding for nutritional support through a PEG tube. She is also on IV Zosyn for a potential right lower lobe/right middle lobe pneumonia which can be of an aspiration type. No fever. No chills. No leukocytosis. No other complaints otherwise for now. She is resting comfortably in bed. On 06/23/2017 the patient is being seen for a follow-up. She is more short of breath compared to yesterday. She is having labored breathing. Minimal congested cough. She is unable to bring up any sputum. Very weak and lethargic and still suffering from toxicity of systemic chemotherapy. Chest x- ray was done and it showed development of bibasilar pulmonary ventilator and small effusions. As such, the patient was given a dose of Lasix 40 mg IV push. She started diuresing and 40 B also inserted. She is still on a Cardizem drip for rate control. She is on no anticoagulants. No active hemoptysis at this point. Still on IV Zosyn regarding possibility of bibasilar pneumonia. Condition is obviously worse compared to yesterday. The patient is quite lethargic. She remains to have a low white count of 6.8. Hemoglobin stable at 10.9 and there is no evidence of any acute bleeding at this point. On 06/24/2017 the patient is being seen in follow-up. She is quite lethargic and weak related to chemotherapy toxicity. She is less short of breath compared to yesterday and she is on Lasix IV. Her chest x-ray showing bibasilar pulmonary consolidation which could be fluid versus aspiration pneumonia. She is on IV Zosyn. Tolerating her tube feeds. On a Cardizem drip. Communicating. No hemoptysis. Hemoglobin stable at 10.6. The rest of the electrodes are all within normal limits. Patient was seen today on follow-up on 06/25/2017, no further episodes of hemoptysis, less weakness, less lethargy is noted. Denies being short of breath , and she seems to be doing relatively well compared to how she felt all along. Chest x-ray is consistent with interstitial infiltrates or possibly more or less in appearance of congestive heart failure and ventral infiltrates. Patient also has small bilateral pleural effusions, and a right Mediport is noted. Labs were reviewed hemoglobin is stable at 10.3. Electrolytes are normal BUN is 24 creatinine is 0.40. Liver enzymes were noted to be a bit elevated. Reevaluated today on 06/26/2017, no further episodes of hemoptysis, patient seems to be experiencing intermittent episodes of cough and congestion. No chest pain, no fever, no chills, and no further episodes of hemoptysis. CBC was reviewed relatively normal. Hemoglobin is 10.4. WBC count is 8.0. Platelets are 89,000. Basic metabolic profile is relatively normal, renal profile is normal. Chest x-ray from yesterday showed findings of possible component of mild congestive heart failure and interstitial edema. Patient remains on Lasix 40 mg IV push every 12 hours. She is also on multiple cardiac meds for atrial fibrillation. And hypertension. IV fluid is cut down to KVO. Reevaluated today on 06/27/2017, patient had some issues of cough congestion and wheezing overnight, she was given Lasix, and today she was placed on Solu- Medrol for coughing and wheezing. Patient remains on bronchodilators, and she is now on 50% Ventimask. Chest x-ray showed cardiomegaly and some interstitial pattern with small bilateral effusions likely secondary to congestive heart failure, doubt lymphangitic spread of malignancy. At any rate patient is very marginal at best, and clearly had expressed wishes as not to be on life support machine 90s, and has DO NOT RESUSCITATE CODE STATUS. Labs were reviewed WBC count is 8 hemoglobin is 10.4. Basic metabolic profile is relatively normal. Reevaluated on 06/28/2017, significant improvement noted in the last 24 hours. Hardly any cough, no wheezing, no congestion, remains on Ventimask. Apparently the patient responded quite well to the use of Solu-Medrol however her sugars are running high and I will go ahead and cut down the dose a bit. WBC count 7.5 hemoglobin is 10.1 basic metabolic profile is normal renal profile is normal. Patient continues to have intermittent episodes of A. fib and heart rate sometimes seems to be poorly controlled. Patient was reevaluated today on 06/29/2017, continues to steadily improve, however her sugars are running high. Patient remains on steroids, may eventually cut down the dose once her pulmonary status improves even further. WBC count is 7.5 today hemoglobin is 10.1. Basic metabolic profile is normal. But sugars are running as high as 367. Objective - Vital Signs Vital signs: Vital Signs Temp 96.9 F L 06/29/17 12:00 Pulse 128 H 06/29/17 12:00 Resp 20 06/29/17 12:00 BP 124/74 06/29/17 12:00 Pulse Ox 96 06/29/17 12:00 Intake & Output 06/28/17 06/29/17 06/29/17 18:59 06:59 18:59 Intake Total 113.667 770 640 Output Total 400 1500 520 Balance -286.333 -730 120 Weight 67.5 kg 66.5 kg Intake: Intake, IV Titration 113.667 50 Amount Furosemide 250 mg In 113.667 50 Sodium Chloride 0.9% 225 ml @ 10 MG/HR 10 mls/hr IVP .Q24H [facility] Rx#: [id number] Oral 0 Tube Feeding 720 640 Output: Urine 400 1500 520 Uretheral (Hopper) 350 Other: Voiding Method Indwelling Catheter Indwelling Catheter Indwelling Catheter # Bowel Movements 0 - Exam Gen. appearance the patient has lost her hair to systemic chemotherapy. Comfortable, in no form of respiratory distress, remains on Ventimask. Head is atraumatic normocephalic and the patient has developed her loss due to systemic chemotherapy. Neck is supple. There is some fullness over the right submandibular area. No direct tenderness. No rebound tenderness. No guarding. There is skin changes related to radiation therapy over the right neck area. Lung sounds are diminished bilaterally. No crackles, no rhonchi, no wheezes. Heart sounds are irregular, positive S1-S2 and there is no significant murmurs appreciated. Abdominal exam revealed normal bowel sounds. The abdomen was soft, non-tender, and without masses, organomegaly, or appreciable enlargement of the abdominal aorta. .Examination of the extremities revealed easily palpable radial, femoral and pedal pulses. There was no cyanosis, clubbing or edema. Neurologically the patient is awake and alert and following commands. No focal neurological deficit. Skin examination is negative for any ulcers or wounds or cellulitis. Skeletal examination showed no evidence of any arthritis or joint deformities. - Labs CBC & Chem 7: 06/28/17 05:15 06/29/17 05:28 Labs: Abnormal Lab Results - Last 24 Hours (Table) 06/28/17 06/28/17 06/29/17 Range/Units 16:43 21:00 05:28 Chloride 95 L (98-107) mmol/L Carbon Dioxide 34 H (22-30) mmol/L BUN 41 H (7-17) mg/dL Creatinine 0.43 L (0.52-1.04) mg/dL Glucose 261 H (74-99) mg/dL POC Glucose (mg/dL) 473 H 367 H (75-99) mg/dL AST 56 H (14-36) U/L ALT 113 H (9-52) U/L Alkaline Phosphatase 315 H (38-126) U/L Total Protein 5.6 L (6.3-8.2) g/dL Albumin 2.8 L (3.5-5.0) g/dL 06/29/17 06/29/17 Range/Units 06:08 12:01 Chloride (98-107) mmol/L Carbon Dioxide (22-30) mmol/L BUN (7-17) mg/dL Creatinine (0.52-1.04) mg/dL Glucose (74-99) mg/dL POC Glucose (mg/dL) 275 H 296 H (75-99) mg/dL AST (14-36) U/L ALT (9-52) U/L Alkaline Phosphatase (38-126) U/L Total Protein (6.3-8.2) g/dL Albumin (3.5-5.0) g/dL Assessment and Plan Plan: 1 hemoptysis. Resolved. On 06/22/2017 the patient's hemoptysis subsided and the patient is not coughing any further blood. No significant rest of the stress pH is on IV Zosyn for empiric antibiotic coverage regarding potential right lower lobe/right middle lobe aspiration pneumonia. No fever. No chills. Hemodynamically stable. On no anticoagulants. On 06/23/2017 the patient's hemoptysis has subsided and the patient is not having any active hemoptysis at this point. On 06/24/2017, the patient's hemoptysis has subsided. There is no signs of any active bleeding and hemoglobin is stable. On 06/25/2017, hemoptysis has completely subsided, patient seems to be less weak , more energetic, and less lethargic. On 06/26/2017, patient is feeling better overall, continues to have some pulmonary congestion, remains on bronchodilators and diuretics. On 06/27/2017, patient does not seem to be making significant improvement especially over the last 24 hours, she seems to be going downhill. Hence more Lasix was given, and she was given Solu-Medrol. Xanax dose was increased to 3 times daily. On 06/28/2017, patient seems to be responding well to Solu-Medrol, however sugars are running high and will cut down the dose of that. Otherwise continue present treatment plan. On 06/29/2017, doing better continues to improve, has no changes were made. Sugars are a bit high handled with insulin. 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 The patient is being treated with a combination of chemoradiation therapy. Received carboplatinum and Taxol last chemotherapy was around 3 weeks ago. Received radiation therapy 3 COPD 4 worsening shortness of breath with development increased interstitial changes bilaterally, hence more Lasix was given. 5 chronic atrial fibrillation with rapid ventricular response currently on a Cardizem drip for rate control. The patient is on no anticoagulants 6 coronary artery disease with previous coronary intervention and stenting, currently stable 7 diabetes mellitus 8 hypertension 9 hyperlipidemia 10 obstructive sleep apnea noncompliant to CPAP therapy 11 skin cancer that was been [id number] smoker 13 macular degeneration 14 minimal troponin leak 15 limited emphysematous changes in the right middle lobe and right lower lobe. Pneumonia pneumonia of an aspiration type needs to be considered. 16 inability to swallow and the patient has enteral feeding for nutritional support Recommendation: Continue diuretics, continue antibiotics in the form of Zosyn, continue aspiration precautions, continue bronchodilators and steroids, overall picture and prognosis seems to be guarded, patient remains DO NOT RESUSCITATE CODE STATUS. Time with Patient: Less than 30
--- NOTE | 2017-06-29 16:33 | P.PN ---
Subjective Principal diagnosis: hemoptysis Pt seen today in followup, she is much more alert then the last few days, she denies fever, nausea, she continues to cough frequently, not expectorating much , no hemoptysis since admit, no abd pain, PET is working well, denies constipation. Pt states wanting to go to rehab. Objective - Vital Signs Vital signs: Vital Signs Temp 97 F L 06/29/17 15:55 Pulse 121 H 06/29/17 15:55 Resp 20 06/29/17 15:55 BP 145/96 06/29/17 15:55 Pulse Ox 98 06/29/17 15:55 Intake & Output 06/28/17 06/29/17 06/29/17 18:59 06:59 18:59 Intake Total 113.667 770 640 Output Total 400 1500 520 Balance -286.333 -730 120 Weight 67.5 kg 66.5 kg Intake: Intake, IV Titration 113.667 50 Amount Furosemide 250 mg In 113.667 50 Sodium Chloride 0.9% 225 ml @ 10 MG/HR 10 mls/hr IVP .Q24H [facility] Rx#: [id number] Oral 0 Tube Feeding 720 640 Output: Urine 400 1500 520 Uretheral (Hopper) 350 Other: Voiding Method Indwelling Catheter Indwelling Catheter Indwelling Catheter # Bowel Movements 0 - Constitutional General appearance: Present: cooperative, no acute distress, obese - EENT Eyes: Present: anicteric sclerae - Respiratory Respiratory: bilateral: diminished, rales (scattered, expiratory) - Cardiovascular Rhythm: irregularly irregular Heart sounds: normal: S1, S2 - Peripheral edema foot Peripheral Edema: bilateral: Trace - Gastrointestinal General gastrointestinal: Present: normal bowel sounds, soft. Absent: absent bowel sounds, decreased bowel sounds, distended, hepatomegaly, hyperactive bowel sounds, organomegaly, rigid, scaphoid, splenomegaly, tenderness, umbilical hernia, ventral hernia - Integumentary Integumentary: Present: pale - Neurologic Neurologic: Present: CNII-XII intact - Musculoskeletal Musculoskeletal: Present: generalized weakness - Psychiatric Psychiatric: Present: A&O x's 3, appropriate affect, intact judgment & insight - Labs CBC & Chem 7: 06/28/17 05:15 06/29/17 05:28 Labs: Abnormal Lab Results - Last 24 Hours (Table) 06/28/17 06/28/1717 Range/Units 16:43 21:00 05:28 Chloride 95 L (98-107) mmol/L Carbon Dioxide 34 H (22-30) mmol/L BUN 41 H (7-17) mg/dL Creatinine 0.43 L (0.52-1.04) mg/dL Glucose 261 H (74-99) mg/dL POC Glucose (mg/dL) 473 H 367 H (75-99) mg/dL AST 56 H (14-36) U/L ALT 113 H (9-52) U/L Alkaline Phosphatase 315 H (38-126) U/L Total Protein 5.6 L (6.3-8.2) g/dL Albumin 2.8 L (3.5-5.0) g/dL 06/29/17 06/29/17 Range/Units 06:08 12:01 Chloride (98-107) mmol/L Carbon Dioxide (22-30) mmol/L BUN (7-17) mg/dL Creatinine (0.52-1.04) mg/dL Glucose (74-99) mg/dL POC Glucose (mg/dL) 275 H 296 H (75-99) mg/dL AST (14-36) U/L ALT (9-52) U/L Alkaline Phosphatase (38-126) U/L Total Protein (6.3-8.2) g/dL Albumin (3.5-5.0) g/dL - Imaging and Cardiology Chest x-ray: report reviewed Assessment and Plan (1) Acute exacerbation of chronic obstructive airways disease Narrative/Plan: Pt experienced COPD exacerbation, she is being followed closely by Pulmonary. Status: Acute (2) CHF (congestive heart failure) Narrative/Plan: Currently on lasix drip, Cardiology following Status: Acute (3) Hyperglycemia Narrative/Plan: Secondary to steroid use for COPD exacerbation, SSI was recently added, CBG has improved, steroids are being weaned. Status: Acute (4) Atrial fibrillation with RVR Narrative/Plan: Persistent, Cardiology continues to follow with pt, meds being adjusted. Status: Acute (5) Hemoptysis Narrative/Plan: Resolved since admit Status: Acute (6) Anemia Narrative/Plan: Stable, no transfusion Status: Chronic (7) Squamous cell carcinoma of head and neck Narrative/Plan: Pt has completed chemo, radiation was not completed. Currently pt is in no physical shape to do treatment of any kind. She will be followed up with in the outpatient setting after rehabilitation to see if she is a candidate for further treatment. Status: Chronic (8) Anemia associated with acute blood loss Status: Acute (9) Antineoplastic chemotherapy induced anemia Status: Acute (10) Chemotherapy-induced thrombocytopenia Narrative/Plan: No transfusion needed at this time, will continue to monitor CBC Status: Acute Plan: Pt stated wanting to go to rehab for a bit at discharge. Case management consulted Labs for AM
[2017-06-29 16:39] LABS: Glucose,Whole Blood 293 mg/dL (75-99)
[2017-06-29] MEDS ORDERED: INSULIN REGULAR BOLUS (FROM DRIP BAG) IV ONE (17:10)
[2017-06-29 17:49] LABS: Glucose,Whole Blood 296 mg/dL (75-99)
[2017-06-29] MEDS: INSULIN REGULAR 100 UNIT in SODIUM CHLORIDE 0.9% 100 ML IV SCH (17:58)
[2017-06-29 18:53] LABS: Glucose,Whole Blood 245 mg/dL (75-99)
[2017-06-29] MEDS: SODIUM CHLORIDE 0.9% 1,000 ML IV SCH (19:42)
[2017-06-29 20:54] LABS: Glucose,Whole Blood 234 mg/dL (75-99)
[2017-06-29] MEDS: FUROSEMIDE 250 MG in SODIUM CHLORIDE 0.9% 225 ML IVP SCH (21:25)
[2017-06-29] MEDS: LATANOPROST 0.005% OPHTH DROPS 2.5 ML BTL RIGHT EYE SCH (21:26)
[2017-06-29] MEDS: ATORVASTATIN 20 MG TAB PEG/G-TUBE SCH (21:26)
[2017-06-29 23:47] LABS: Glucose,Whole Blood 291 mg/dL (75-99)
[2017-06-30 02:21] LABS: Glucose,Whole Blood 210 mg/dL (75-99)
[2017-06-30] MEDS: IPRATROPIUM-ALBUTEROL 3 ML NEB INHALATION SCH ×6 (03:40→23:37)
[2017-06-30 04:14] LABS: Glucose,Whole Blood 192 mg/dL (75-99)
[2017-06-30 06:11] LABS: Glucose,Whole Blood 206 mg/dL (75-99)
[2017-06-30] MEDS: DOXYCYCLINE 50 MG CAP PO SCH ×2 (06:18→20:12)
[2017-06-30 06:32] LABS: Anisocytosis Slight; Basophils % (A) 0 %; CH 32.4; CHCM 30.6; Eosinophils % (A) 0 %; HCT 32.7 % (34.0-46.0); HDW 2.84; Hypochromasia Moderate; Luc # (Auto) 0.11; Luc % (Auto) 1; Lymphocytes # (A) 0.4 k/uL (1.0-4.8); Lymphocytes % (A) 4 %; MCH 32.6 pg (25.0-35.0); MCHC 30.6 g/dL (31.0-37.0); MCV 106.5 fL (80.0-100.0); Mean Platelet Volume 9.9; Monocytes # (A) 0.4 k/uL (0-1.0); Monocytes % (A) 3 %; Neutrophils # (A) 9.9 k/uL (1.3-7.7); Neutrophils % (A) 92 %; RBC 3.07 m/uL (3.80-5.40); RDW 19.6 % (11.5-15.5); WBC 10.7 k/uL (3.8-10.6); WBC (Perox) 10.77
[2017-06-30 06:45] LABS: Macrocytosis Marked
[2017-06-30 06:49] LABS: Anion Gap 10 mmol/L; Blood Urea Nitrogen 49 mg/dL (7-17); Calcium 8.8 mg/dL (8.4-10.2); Carbon Dioxide 37 mmol/L (22-30); Chloride 93 mmol/L (98-107); Glucose 202 mg/dL (74-99); Non-African American GFR(MDRD) >60 (>60 ml/min/1.73 sqM); Potassium 3.4 mmol/L (3.5-5.1); Sodium 140 mmol/L (137-145)
[2017-06-30] MEDS: METOPROLOL TARTRATE 50 MG TAB PO SCH ×2 (07:57→20:11)
[2017-06-30] MEDS: AMIODARONE 200 MG TAB PO SCH ×2 (07:57→20:12)
[2017-06-30] MEDS: MAGNESIUM OXIDE 400 MG TAB PEG/G-TUBE SCH ×2 (07:57→22:46)
[2017-06-30] MEDS: DILTIAZEM ORAL 30 MG TAB PO SCH ×3 (07:58→20:10)
[2017-06-30 07:59] LABS: Glucose,Whole Blood 225 mg/dL (75-99)
[2017-06-30] MEDS: methylPREDNISolone SOD SUCCI 40 MG/ML 1 ML VIAL IV SCH ×2 (07:59→20:13)
[2017-06-30] MEDS ORDERED: POTASSIUM CHLORIDE 20 MEQ in WATER FOR INJECTION 1 100ML.BAG IVPB ONE (08:00)
[2017-06-30] MEDS: ALPRAZolam 0.25 MG TAB PEG/G-TUBE SCH ×3 (08:08→20:15)
[2017-06-30] MEDS: BUDESONIDE 0.5 MG/2 ML NEBU INHALATION SCH ×2 (08:28→19:00)
[2017-06-30] MEDS ORDERED: ENOXAPARIN 30 MG/0.3 ML SYRINGE SQ SCH (09:00)
[2017-06-30] MEDS: INSULIN REGULAR 100 UNIT in SODIUM CHLORIDE 0.9% 100 ML IV SCH (09:17)
[2017-06-30 10:08] LABS: Glucose,Whole Blood 216 mg/dL (75-99)
--- NOTE | 2017-06-30 10:54 | P.PN ---
Subjective Principal diagnosis: Hemoptysis, congestive heart failure, and atrial fibrillation Ms. Jorgensen is a very pleasant female pt of Dr. 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 She presented with oropharyngeal mass, seen by Dr. Chase and Dr. Cisneros, ultimately referred to Dr. Hess at [facility]. CT on 01/10/17 revealed 7.4 cm oropharyngeal mass, biopsy on 01/22/17 revealed moderately differentiated squamous cell carcinoma, she had PEG tube placed for nutritional support. She started neoadjuvant carbo and weekly taxol chemotherapy at [facility] with Oncologist Dr. Comer. After 1st she opted for treatment closer to home, she completed 4 cycles 05/17, she has had radiation treatments. Pt has had a cough for a few days, then last evening she cough up a copious amount of blood, a large clot, concern was a blood vessel had been eroded and pt was bleeding out so family brought her to ER. She had urgent nasopharyngeal laryngoscopy with Dr. Frazier who did not see any active bleeding, some old blood being coughed up, no gross tumors or friable mass were visualized. Pt continues to have cough, more congested sounding per family, pt denies fever , nausea, vomiting, chest pain, she does not feel her irrregular heart rate or a -fib, no abd pain, PEG is working well, no dysuria, hematuria, diarrhea, constipation, or bleeding, her feet have been swollen for a few days but they are better today, pt gets up with assistance to the bedside commode On 06/22/2017 the patient is being seen in follow-up. The patient is still still lethargic and quite weak. She is quite toxic from the systemic chemotherapy that was given to her last 3 weeks ago. She is not cough and blood and this has essentially subsided. She is on a Cardizem drip for rate control the rate of 5 mg an hour. She is on no anticoagulants. She is receiving enteral feeding for nutritional support through a PEG tube. She is also on IV Zosyn for a potential right lower lobe/right middle lobe pneumonia which can be of an aspiration type. No fever. No chills. No leukocytosis. No other complaints otherwise for now. She is resting comfortably in bed. On 06/23/2017 the patient is being seen for a follow-up. She is more short of breath compared to yesterday. She is having labored breathing. Minimal congested cough. She is unable to bring up any sputum. Very weak and lethargic and still suffering from toxicity of systemic chemotherapy. Chest x- ray was done and it showed development of bibasilar pulmonary ventilator and small effusions. As such, the patient was given a dose of Lasix 40 mg IV push. She started diuresing and 40 B also inserted. She is still on a Cardizem drip for rate control. She is on no anticoagulants. No active hemoptysis at this point. Still on IV Zosyn regarding possibility of bibasilar pneumonia. Condition is obviously worse compared to yesterday. The patient is quite lethargic. She remains to have a low white count of 6.8. Hemoglobin stable at 10.9 and there is no evidence of any acute bleeding at this point. On 06/24/2017 the patient is being seen in follow-up. She is quite lethargic and weak related to chemotherapy toxicity. She is less short of breath compared to yesterday and she is on Lasix IV. Her chest x-ray showing bibasilar pulmonary consolidation which could be fluid versus aspiration pneumonia. She is on IV Zosyn. Tolerating her tube feeds. On a Cardizem drip. Communicating. No hemoptysis. Hemoglobin stable at 10.6. The rest of the electrodes are all within normal limits. Patient was seen today on follow-up on 06/25/2017, no further episodes of hemoptysis, less weakness, less lethargy is noted. Denies being short of breath , and she seems to be doing relatively well compared to how she felt all along. Chest x-ray is consistent with interstitial infiltrates or possibly more or less in appearance of congestive heart failure and ventral infiltrates. Patient also has small bilateral pleural effusions, and a right Mediport is noted. Labs were reviewed hemoglobin is stable at 10.3. Electrolytes are normal BUN is 24 creatinine is 0.40. Liver enzymes were noted to be a bit elevated. Reevaluated today on 06/26/2017, no further episodes of hemoptysis, patient seems to be experiencing intermittent episodes of cough and congestion. No chest pain, no fever, no chills, and no further episodes of hemoptysis. CBC was reviewed relatively normal. Hemoglobin is 10.4. WBC count is 8.0. Platelets are 89,000. Basic metabolic profile is relatively normal, renal profile is normal. Chest x-ray from yesterday showed findings of possible component of mild congestive heart failure and interstitial edema. Patient remains on Lasix 40 mg IV push every 12 hours. She is also on multiple cardiac meds for atrial fibrillation. And hypertension. IV fluid is cut down to KVO. Reevaluated today on 06/27/2017, patient had some issues of cough congestion and wheezing overnight, she was given Lasix, and today she was placed on Solu- Medrol for coughing and wheezing. Patient remains on bronchodilators, and she is now on 50% Ventimask. Chest x-ray showed cardiomegaly and some interstitial pattern with small bilateral effusions likely secondary to congestive heart failure, doubt lymphangitic spread of malignancy. At any rate patient is very marginal at best, and clearly had expressed wishes as not to be on life support machine 90s, and has DO NOT RESUSCITATE CODE STATUS. Labs were reviewed WBC count is 8 hemoglobin is 10.4. Basic metabolic profile is relatively normal. Reevaluated on 06/28/2017, significant improvement noted in the last 24 hours. Hardly any cough, no wheezing, no congestion, remains on Ventimask. Apparently the patient responded quite well to the use of Solu-Medrol however her sugars are running high and I will go ahead and cut down the dose a bit. WBC count 7.5 hemoglobin is 10.1 basic metabolic profile is normal renal profile is normal. Patient continues to have intermittent episodes of A. fib and heart rate sometimes seems to be poorly controlled. Patient was reevaluated today on 06/29/2017, continues to steadily improve, however her sugars are running high. Patient remains on steroids, may eventually cut down the dose once her pulmonary status improves even further. WBC count is 7.5 today hemoglobin is 10.1. Basic metabolic profile is normal. But sugars are running as high as 367. Patient was reevaluated today on 06/30/2017, physically about the same, no major changes noted over the last couple of days. Sugars remain high hence I cut down the Solu-Medrol to 40 mg IV push every 12 hours. Patient remains intermittently confused, restless, and she seems to have difficulty clearing her own secretions. She sounds congested, however she is unable to bring all that sputum sitting in her upper airways, patient may need to have some suctioning intermittently and somehow help her clear though secretions. Patient is to be reminded to cough and get the secretions out. Labs were reviewed, no major abnormalities except for low potassium of 3.4. BUN is 49, creatinine is 0.40. Objective - Vital Signs Vital signs: Vital Signs Temp 97.6 F 06/30/17 07:49 Pulse 142 H 06/30/17 07:49 Resp 20 06/30/17 08:00 BP 120/81 06/30/17 07:49 Pulse Ox 92 L 06/30/17 08:29 Intake & Output 06/29/17 06/30/17 06/30/17 18:59 06:59 18:59 Intake Total 968.4 1238.992 331.75 Output Total 770 1240 650 Balance 198.4 -1.008 -318.25 Weight 66 kg Intake: IV 240 Furosemide 250 mg In 100 Sodium Chloride 0.9% 225 ml @ 10 MG/HR 10 mls/hr IVP .Q24H JULIÁN Rx#: [id number] Insulin Regular 100 unit 40 In Sodium Chloride 0.9% 100 ml @ Titrate IV .Q0M JULIÁN Rx#:[id number] Sodium Chloride 0.9% 1, 100 000 ml @ 10 mls/hr IV . Q24H JULIÁN Rx#:[id number] Intake, IV Titration 8.4 278.992 11.75 Amount Furosemide 250 mg In 232.833 Sodium Chloride 0.9% 225 ml @ 10 MG/HR 10 mls/hr IVP .Q24H JULIÁN Rx#: [id number] Insulin Regular 100 unit 8.4 46.159 11.75 In Sodium Chloride 0.9% 100 ml @ Titrate IV .Q0M JULIÁN Rx#:[id number] Tube Feeding 960 720 320 Output: Urine 770 1240 650 Other: Voiding Method Indwelling Catheter Indwelling Catheter Indwelling Catheter # Bowel Movements 1 - Exam Gen. appearance the patient has lost her hair to systemic chemotherapy. Comfortable, in no form of respiratory distress, remains on Ventimask. Head is atraumatic normocephalic and the patient has developed her loss due to systemic chemotherapy. Neck is supple. There is some fullness over the right submandibular area. No direct tenderness. No rebound tenderness. No guarding. There is skin changes related to radiation therapy over the right neck area. Lung sounds are diminished bilaterally. No crackles, no rhonchi, no wheezes. Heart sounds are irregular, positive S1-S2 and there is no significant murmurs appreciated. Abdominal exam revealed normal bowel sounds. The abdomen was soft, non-tender, and without masses, organomegaly, or appreciable enlargement of the abdominal aorta. .Examination of the extremities revealed easily palpable radial, femoral and pedal pulses. There was no cyanosis, clubbing or edema. Neurologically the patient is awake and alert and following commands. No focal neurological deficit. Skin examination is negative for any ulcers or wounds or cellulitis. Skeletal examination showed no evidence of any arthritis or joint deformities. - Labs CBC & Chem 7: 06/30/17 05:21 06/30/17 05:21 Labs: Abnormal Lab Results - Last 24 Hours (Table) 06/29/17 06/29/17 06/29/17 Range/Units 12:01 16:34 17:47 WBC (3.8-10.6) k/uL RBC (3.80-5.40) m/uL Hgb (11.4-16.0) gm/dL Hct (34.0-46.0) % MCV (80.0-100.0) fL MCHC (31.0-37.0) g/dL RDW (11.5-15.5) % Plt Count (150-450) k/uL Neutrophils # (1.3-7.7) k/uL Lymphocytes # (1.0-4.8) k/uL Potassium (3.5-5.1) mmol/L Chloride (98-107) mmol/L Carbon Dioxide (22-30) mmol/L BUN (7-17) mg/dL Creatinine (0.52-1.04) mg/dL Glucose (74-99) mg/dL POC Glucose (mg/dL) 296 H 293 H 296 H (75-99) mg/dL 06/29/17 06/29/17 06/29/17 Range/Units 18:33 20:17 23:33 WBC (3.8-10.6) k/uL RBC (3.80-5.40) m/uL Hgb (11.4-16.0) gm/dL Hct (34.0-46.0) % MCV (80.0-100.0) fL MCHC (31.0-37.0) g/dL RDW (11.5-15.5) % Plt Count (150-450) k/uL Neutrophils # (1.3-7.7) k/uL Lymphocytes # (1.0-4.8) k/uL Potassium (3.5-5.1) mmol/L Chloride (98-107) mmol/L Carbon Dioxide (22-30) mmol/L BUN (7-17) mg/dL Creatinine (0.52-1.04) mg/dL Glucose (74-99) mg/dL POC Glucose (mg/dL) 245 H 234 H 291 H (75-99) mg/dL 06/30/17 06/30/17 06/30/17 Range/Units 02:06 04:07 05:21 WBC 10.7 H (3.8-10.6) k/uL RBC 3.07 L (3.80-5.40) m/uL Hgb 10.0 L (11.4-16.0) gm/dL Hct 32.7 L (34.0-46.0) % MCV 106.5 H (80.0-100.0) fL MCHC 30.6 L (31.0-37.0) g/dL RDW 19.6 H (11.5-15.5) % Plt Count 108 L (150-450) k/uL Neutrophils # 9.9 H (1.3-7.7) k/uL Lymphocytes # 0.4 L (1.0-4.8) k/uL Potassium (3.5-5.1) mmol/L Chloride (98-107) mmol/L Carbon Dioxide (22-30) mmol/L BUN (7-17) mg/dL Creatinine (0.52-1.04) mg/dL Glucose (74-99) mg/dL POC Glucose (mg/dL) 210 H 192 H (75-99) mg/dL 06/30/17 06/30/17 06/30/17 Range/Units 05:21 06:09 07:46 WBC (3.8-10.6) k/uL RBC (3.80-5.40) m/uL Hgb (11.4-16.0) gm/dL Hct (34.0-46.0) % MCV (80.0-100.0) fL MCHC (31.0-37.0) g/dL RDW (11.5-15.5) % Plt Count (150-450) k/uL Neutrophils # (1.3-7.7) k/uL Lymphocytes # (1.0-4.8) k/uL Potassium 3.4 L (3.5-5.1) mmol/L Chloride 93 L (98-107) mmol/L Carbon Dioxide 37 H (22-30) mmol/L BUN 49 H (7-17) mg/dL Creatinine 0.40 L (0.52-1.04) mg/dL Glucose 202 H (74-99) mg/dL POC Glucose (mg/dL) 206 H 225 H (75-99) mg/dL 06/30/17 Range/Units 10:01 WBC (3.8-10.6) k/uL RBC (3.80-5.40) m/uL Hgb (11.4-16.0) gm/dL Hct (34.0-46.0) % MCV (80.0-100.0) fL MCHC (31.0-37.0) g/dL RDW (11.5-15.5) % Plt Count (150-450) k/uL Neutrophils # (1.3-7.7) k/uL Lymphocytes # (1.0-4.8) k/uL Potassium (3.5-5.1) mmol/L Chloride (98-107) mmol/L Carbon Dioxide (22-30) mmol/L BUN (7-17) mg/dL Creatinine (0.52-1.04) mg/dL Glucose (74-99) mg/dL POC Glucose (mg/dL) 216 H (75-99) mg/dL Assessment and Plan Plan: 1 hemoptysis. Resolved. On 06/22/2017 the patient's hemoptysis subsided and the patient is not coughing any further blood. No significant rest of the stress pH is on IV Zosyn for empiric antibiotic coverage regarding potential right lower lobe/right middle lobe aspiration pneumonia. No fever. No chills. Hemodynamically stable. On no anticoagulants. On 06/23/2017 the patient's hemoptysis has subsided and the patient is not having any active hemoptysis at this point. On 06/24/2017, the patient's hemoptysis has subsided. There is no signs of any active bleeding and hemoglobin is stable. On 06/25/2017, hemoptysis has completely subsided, patient seems to be less weak , more energetic, and less lethargic. On 06/26/2017, patient is feeling better overall, continues to have some pulmonary congestion, remains on bronchodilators and diuretics. On 06/27/2017, patient does not seem to be making significant improvement especially over the last 24 hours, she seems to be going downhill. Hence more Lasix was given, and she was given Solu-Medrol. Xanax dose was increased to 3 times daily. On 06/28/2017, patient seems to be responding well to Solu-Medrol, however sugars are running high and will cut down the dose of that. Otherwise continue present treatment plan. On 06/29/2017, doing better continues to improve, has no changes were made. Sugars are a bit high handled with insulin. On 06/30/2017, Solu-Medrol was decreased to 40 mg IV push every 12 hours, instructed the nurse to motivate her to cough and bring up her secretions, and to be suctioned as needed. 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 The patient is being treated with a combination of chemoradiation therapy. Received carboplatinum and Taxol last chemotherapy was around 3 weeks ago. Received radiation therapy 3 COPD 4 worsening shortness of breath with development increased interstitial changes bilaterally, hence more Lasix was given. 5 chronic atrial fibrillation with rapid ventricular response currently on a Cardizem drip for rate control. The patient is on no anticoagulants 6 coronary artery disease with previous coronary intervention and stenting, currently stable 7 diabetes mellitus 8 hypertension 9 hyperlipidemia 10 obstructive sleep apnea noncompliant to CPAP therapy 11 skin cancer that was been [id number] smoker 13 macular degeneration 14 minimal troponin leak 15 limited emphysematous changes in the right middle lobe and right lower lobe. Pneumonia pneumonia of an aspiration type needs to be considered. 16 inability to swallow and the patient has enteral feeding for nutritional support Recommendation: Continue diuretics, off antibiotics, continue aspiration precautions, continue bronchodilators and steroids, however the dose was cut down because of persistent hyperglycemia overall picture and prognosis seems to be guarded, patient remains DO NOT RESUSCITATE CODE STATUS. Time with Patient: Less than 30
--- NOTE | 2017-06-30 11:20 | P.PN ---
Subjective Principal diagnosis: hemoptysis Pt seen today in followup, she is not as alert as yesterday but, she is responsive to all questions. She continues to have congested cough, she denies hemoptysis, not bringing up any phelgm, her heart rate is highly variable but, pt consciously is not aware of it, pt denies pain, abd is not feeling bloated, she does not recall her last BM. Objective - Vital Signs Vital signs: Vital Signs Temp 97.6 F 06/30/17 07:49 Pulse 142 H 06/30/17 07:49 Resp 20 06/30/17 08:00 BP 120/81 06/30/17 07:49 Pulse Ox 92 L 06/30/17 08:29 Intake & Output 06/29/17 06/30/17 06/30/17 18:59 06:59 18:59 Intake Total 968.4 1238.992 331.75 Output Total 770 1240 650 Balance 198.4 -1.008 -318.25 Weight 66 kg Intake: IV 240 Furosemide 250 mg In 100 Sodium Chloride 0.9% 225 ml @ 10 MG/HR 10 mls/hr IVP .Q24H UJLIÁN Rx#: [id number] Insulin Regular 100 unit 40 In Sodium Chloride 0.9% 100 ml @ Titrate IV .Q0M JULIÁN Rx#:[id number] Sodium Chloride 0.9% 1, 100 000 ml @ 10 mls/hr IV . Q24H JULIÁN Rx#:[id number] Intake, IV Titration 8.4 278.992 11.75 Amount Furosemide 250 mg In 232.833 Sodium Chloride 0.9% 225 ml @ 10 MG/HR 10 mls/hr IVP .Q24H JULIÁN Rx#: [id number] Insulin Regular 100 unit 8.4 46.159 11.75 In Sodium Chloride 0.9% 100 ml @ Titrate IV .Q0M JULIÁN Rx#:[id number] Tube Feeding 960 720 320 Output: Urine 770 1240 650 Other: Voiding Method Indwelling Catheter Indwelling Catheter Indwelling Catheter # Bowel Movements 1 - Constitutional General appearance: Present: average body habitus, cooperative, mild distress - EENT Eyes: Present: anicteric sclerae - Respiratory Respiratory: right: wheezing, prolonged expiration, left: diminished, bilateral : rales (scattered) - Cardiovascular Details: tachycardia Rhythm: irregularly irregular - Peripheral edema foot Peripheral Edema: bilateral: Trace - Gastrointestinal General gastrointestinal: Present: normal bowel sounds, soft. Absent: absent bowel sounds, decreased bowel sounds, distended, hepatomegaly, hyperactive bowel sounds, organomegaly, rigid, scaphoid, splenomegaly, tenderness, umbilical hernia, ventral hernia - Integumentary Integumentary: Present: pale - Musculoskeletal Musculoskeletal: Present: generalized weakness - Psychiatric Psychiatric: Present: A&O x's 3, appropriate affect, intact judgment & insight - Labs CBC & Chem 7: 06/30/17 05:21 06/30/17 05:21 Labs: Abnormal Lab Results - Last 24 Hours (Table) 06/29/17 06/29/17 06/29/17 Range/Units 12:01 16:34 17:47 WBC (3.8-10.6) k/uL RBC (3.80-5.40) m/uL Hgb (11.4-16.0) gm/dL Hct (34.0-46.0) % MCV (80.0-100.0) fL MCHC (31.0-37.0) g/dL RDW (11.5-15.5) % Plt Count (150-450) k/uL Neutrophils # (1.3-7.7) k/uL Lymphocytes # (1.0-4.8) k/uL Potassium (3.5-5.1) mmol/L Chloride (98-107) mmol/L Carbon Dioxide (22-30) mmol/L BUN (7-17) mg/dL Creatinine (0.52-1.04) mg/dL Glucose (74-99) mg/dL POC Glucose (mg/dL) 296 H 293 H 296 H (75-99) mg/dL 06/29/17 06/29/17 06/29/17 Range/Units 18:33 20:17 23:33 WBC (3.8-10.6) k/uL RBC (3.80-5.40) m/uL Hgb (11.4-16.0) gm/dL Hct (34.0-46.0) % MCV (80.0-100.0) fL MCHC (31.0-37.0) g/dL RDW (11.5-15.5) % Plt Count (150-450) k/uL Neutrophils # (1.3-7.7) k/uL Lymphocytes # (1.0-4.8) k/uL Potassium (3.5-5.1) mmol/L Chloride (98-107) mmol/L Carbon Dioxide (22-30) mmol/L BUN (7-17) mg/dL Creatinine (0.52-1.04) mg/dL Glucose (74-99) mg/dL POC Glucose (mg/dL) 245 H 234 H 291 H (75-99) mg/dL 06/30/17 06/30/17 06/30/17 Range/Units 02:06 04:07 05:21 WBC 10.7 H (3.8-10.6) k/uL RBC 3.07 L (3.80-5.40) m/uL Hgb 10.0 L (11.4-16.0) gm/dL Hct 32.7 L (34.0-46.0) % MCV 106.5 H (80.0-100.0) fL MCHC 30.6 L (31.0-37.0) g/dL RDW 19.6 H (11.5-15.5) % Plt Count 108 L (150-450) k/uL Neutrophils # 9.9 H (1.3-7.7) k/uL Lymphocytes # 0.4 L (1.0-4.8) k/uL Potassium (3.5-5.1) mmol/L Chloride (98-107) mmol/L Carbon Dioxide (22-30) mmol/L BUN (7-17) mg/dL Creatinine (0.52-1.04) mg/dL Glucose (74-99) mg/dL POC Glucose (mg/dL) 210 H 192 H (75-99) mg/dL 06/30/17 06/30/17 06/30/17 Range/Units 05:21 06:09 07:46 WBC (3.8-10.6) k/uL RBC (3.80-5.40) m/uL Hgb (11.4-16.0) gm/dL Hct (34.0-46.0) % MCV (80.0-100.0) fL MCHC (31.0-37.0) g/dL RDW (11.5-15.5) % Plt Count (150-450) k/uL Neutrophils # (1.3-7.7) k/uL Lymphocytes # (1.0-4.8) k/uL Potassium 3.4 L (3.5-5.1) mmol/L Chloride 93 L (98-107) mmol/L Carbon Dioxide 37 H (22-30) mmol/L BUN 49 H (7-17) mg/dL Creatinine 0.40 L (0.52-1.04) mg/dL Glucose 202 H (74-99) mg/dL POC Glucose (mg/dL) 206 H 225 H (75-99) mg/dL 06/30/17 Range/Units 10:01 WBC (3.8-10.6) k/uL RBC (3.80-5.40) m/uL Hgb (11.4-16.0) gm/dL Hct (34.0-46.0) % MCV (80.0-100.0) fL MCHC (31.0-37.0) g/dL RDW (11.5-15.5) % Plt Count (150-450) k/uL Neutrophils # (1.3-7.7) k/uL Lymphocytes # (1.0-4.8) k/uL Potassium (3.5-5.1) mmol/L Chloride (98-107) mmol/L Carbon Dioxide (22-30) mmol/L BUN (7-17) mg/dL Creatinine (0.52-1.04) mg/dL Glucose (74-99) mg/dL POC Glucose (mg/dL) 216 H (75-99) mg/dL Assessment and Plan (1) Acute exacerbation of chronic obstructive airways disease Narrative/Plan: Pulmonary management, appreciate recommendations. Status: Acute (2) CHF (congestive heart failure) Narrative/Plan: Laisx drip continues, cardiac medications being adjusted Status: Acute (3) Hyperglycemia Narrative/Plan: Secondary to steroid use for COPD exacerbation, pt is now on insulin drip, steroids continue to be weaned as indicated by Pulmonary. Status: Acute (4) Atrial fibrillation with RVR Narrative/Plan: Pt medications have been adjusted, Cardiology continues to follow, appreciate recommendations. Status: Acute (5) Hemoptysis Narrative/Plan: Resolved since admit Status: Resolved (6) Anemia Narrative/Plan: Hgb is stable, not requiring transfusion Status: Chronic (7) Squamous cell carcinoma of head and neck Narrative/Plan: Pt has completed chemo, radiation was not completed. No treatment at this time , re-evaluate after some rehabilitation to see if she is a candidate for further treatment. Status: Chronic (8) Anemia associated with acute blood loss Narrative/Plan: Stable Hgb Status: Acute (9) Antineoplastic chemotherapy induced anemia Status: Acute (10) Chemotherapy-induced thrombocytopenia Narrative/Plan: Platelet count increased today. No intervention, DVT prophylaxis will be ordered Status: Acute Plan: Pt requested rehab, plan is for the same once pt medical conditions have been stabilized. Labs for AM
[2017-06-30 11:53] LABS: Glucose,Whole Blood 217 mg/dL (75-99)
[2017-06-30] MEDS: SODIUM CHLORIDE 0.9% 1,000 ML IV SCH (13:01)
--- NOTE | 2017-06-30 13:45 | PN ---
PROGRESS NOTE Mrs Jorgensen is a 72-year-old female with a history of squamous cell carcinoma of the right tonsil, history of atrial fibrillation, who has not been anticoagulated because of episode of bleeding she had. There was difficulty in controlling her ventricular response. Her ventricular response is under better control. She was on intravenous Lasix drip because of findings of fluid overload. That has improved. She had hemoptysis on presentation. She is feeling better today. She is lying supine, not short of breath. She denies any chest pain. No dizziness or palpitation. She continues to be on: 1. The IV Lasix drip. 2. Amiodarone 400 mg twice a day. 3. Lipitor 20 mg daily. 4. Diltiazem 90 mg 3 times a day. 5. Metoprolol tartrate 100 mg twice a day. PHYSICAL EXAMINATION: Blood pressure 114/80 with a heart rate in the 90s. LUNGS: Clear. No wheezes. HEART: S1, S2. Irregular, irregular with systolic murmur. ABDOMEN: Soft and nontender. PEG tube in place. EXTREMITIES: No significant edema. LAB DATA: Revealed a BUN and creatinine of 49 and 0.4, potassium 3.4, hemoglobin of 10.0. IMPRESSION: 1. Atrial fibrillation with episode of rapid ventricular response under better control at this time. 2. Fluid overload, improved. 3. Hemoptysis, resolving. 4. History of chronic obstructive pulmonary disease. 5. History of diabetes. 6. History of coronary artery disease. RECOMMENDATION: I will switch her to IV Lasix q.8 hours, follow her renal function and depending on her response, further recommendation will be made. MMODL / IJN: [id number] /
[2017-06-30 14:03] LABS: Glucose,Whole Blood 203 mg/dL (75-99)
[2017-06-30 16:01] LABS: Glucose,Whole Blood 217 mg/dL (75-99)
[2017-06-30] MEDS: FUROSEMIDE 10 MG/ML 4 ML VIAL IV SCH ×2 (16:25→22:46)
[2017-06-30 18:10] LABS: Glucose,Whole Blood 224 mg/dL (75-99)
[2017-06-30 20:10] LABS: Glucose,Whole Blood 230 mg/dL (75-99)
[2017-06-30] MEDS: LATANOPROST 0.005% OPHTH DROPS 2.5 ML BTL RIGHT EYE SCH (20:12)
[2017-06-30] MEDS: ATORVASTATIN 20 MG TAB PEG/G-TUBE SCH (20:12)
[2017-06-30 22:31] LABS: Glucose,Whole Blood 245 mg/dL (75-99)
[2017-07-01 01:05] LABS: Glucose,Whole Blood 245 mg/dL (75-99)
[2017-07-01 03:21] LABS: Glucose,Whole Blood 214 mg/dL (75-99)
[2017-07-01] MEDS: IPRATROPIUM-ALBUTEROL 3 ML NEB INHALATION SCH ×5 (03:32→20:42)
[2017-07-01] MEDS: METOPROLOL TARTRATE 50 MG TAB PO SCH ×2 (05:35→20:51)
[2017-07-01 06:17] LABS: Anisocytosis Slight; Basophils % (A) 0 %; CH 32.8; CHCM 30.4; Eosinophils % (A) 0 %; HCT 33.9 % (34.0-46.0); HDW 2.81; HGB 10.3 gm/dL (11.4-16.0); Hypochromasia Moderate; Luc # (Auto) 0.09; Luc % (Auto) 1; Lymphocytes # (A) 0.3 k/uL (1.0-4.8); Lymphocytes % (A) 4 %; MCH 33.2 pg (25.0-35.0); MCHC 30.5 g/dL (31.0-37.0); MCV 108.6 fL (80.0-100.0); Mean Platelet Volume 9.9; Monocytes # (A) 0.3 k/uL (0-1.0); Monocytes % (A) 3 %; Neutrophils # (A) 8.7 k/uL (1.3-7.7); Neutrophils % (A) 92 %; RBC 3.12 m/uL (3.80-5.40); RDW 19.9 % (11.5-15.5); WBC 9.5 k/uL (3.8-10.6); WBC (Perox) 10.32
[2017-07-01 06:20] LABS: Macrocytosis Marked
[2017-07-01 06:26] LABS: Blood Urea Nitrogen 45 mg/dL (7-17); Calcium 9.1 mg/dL (8.4-10.2); Chloride 93 mmol/L (98-107); Glucose 228 mg/dL (74-99); Non-African American GFR(MDRD) >60 (>60 ml/min/1.73 sqM); Potassium 3.4 mmol/L (3.5-5.1); Sodium 142 mmol/L (137-145)
[2017-07-01 06:31] LABS: Glucose,Whole Blood 229 mg/dL (75-99)
[2017-07-01 06:32] LABS: Anion Gap 10 mmol/L; Carbon Dioxide 39 mmol/L (22-30)
[2017-07-01] MEDS: DOXYCYCLINE 50 MG CAP PO SCH ×2 (06:46→18:49)
[2017-07-01 08:01] LABS: Glucose,Whole Blood 176 mg/dL (75-99)
[2017-07-01] MEDS: FUROSEMIDE 10 MG/ML 4 ML VIAL IV SCH ×2 (08:14→20:51)
[2017-07-01] MEDS: BUDESONIDE 0.5 MG/2 ML NEBU INHALATION SCH ×2 (08:39→20:42)
[2017-07-01 10:03] LABS: Glucose,Whole Blood 212 mg/dL (75-99)
[2017-07-01] MEDS: methylPREDNISolone SOD SUCCI 40 MG/ML 1 ML VIAL IV SCH ×2 (10:11→20:51)
[2017-07-01] MEDS: AMIODARONE 200 MG TAB PO SCH ×2 (10:11→20:51)
[2017-07-01] MEDS: DILTIAZEM ORAL 30 MG TAB PO SCH ×3 (10:11→20:51)
[2017-07-01] MEDS: MAGNESIUM OXIDE 400 MG TAB PEG/G-TUBE SCH ×2 (10:11→20:51)
[2017-07-01] MEDS: ALPRAZolam 0.25 MG TAB PEG/G-TUBE SCH ×3 (10:13→20:50)
--- NOTE | 2017-07-01 10:39 | P.PN ---
Subjective Principal diagnosis: Hemoptysis, congestive heart failure, and atrial fibrillation Ms. Jorgensen is a very pleasant female pt of Dr. 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 She presented with oropharyngeal mass, seen by Dr. Chase and Dr. Cisneros, ultimately referred to Dr. Hess at [facility]. CT on 01/10/17 revealed 7.4 cm oropharyngeal mass, biopsy on 01/22/17 revealed moderately differentiated squamous cell carcinoma, she had PEG tube placed for nutritional support. She started neoadjuvant carbo and weekly taxol chemotherapy at [facility] with Oncologist Dr. Comer. After 1st she opted for treatment closer to home, she completed 4 cycles 05/17, she has had radiation treatments. Pt has had a cough for a few days, then last evening she cough up a copious amount of blood, a large clot, concern was a blood vessel had been eroded and pt was bleeding out so family brought her to ER. She had urgent nasopharyngeal laryngoscopy with Dr. Frazier who did not see any active bleeding, some old blood being coughed up, no gross tumors or friable mass were visualized. Pt continues to have cough, more congested sounding per family, pt denies fever , nausea, vomiting, chest pain, she does not feel her irrregular heart rate or a -fib, no abd pain, PEG is working well, no dysuria, hematuria, diarrhea, constipation, or bleeding, her feet have been swollen for a few days but they are better today, pt gets up with assistance to the bedside commode On 06/22/2017 the patient is being seen in follow-up. The patient is still still lethargic and quite weak. She is quite toxic from the systemic chemotherapy that was given to her last 3 weeks ago. She is not cough and blood and this has essentially subsided. She is on a Cardizem drip for rate control the rate of 5 mg an hour. She is on no anticoagulants. She is receiving enteral feeding for nutritional support through a PEG tube. She is also on IV Zosyn for a potential right lower lobe/right middle lobe pneumonia which can be of an aspiration type. No fever. No chills. No leukocytosis. No other complaints otherwise for now. She is resting comfortably in bed. On 06/23/2017 the patient is being seen for a follow-up. She is more short of breath compared to yesterday. She is having labored breathing. Minimal congested cough. She is unable to bring up any sputum. Very weak and lethargic and still suffering from toxicity of systemic chemotherapy. Chest x- ray was done and it showed development of bibasilar pulmonary ventilator and small effusions. As such, the patient was given a dose of Lasix 40 mg IV push. She started diuresing and 40 B also inserted. She is still on a Cardizem drip for rate control. She is on no anticoagulants. No active hemoptysis at this point. Still on IV Zosyn regarding possibility of bibasilar pneumonia. Condition is obviously worse compared to yesterday. The patient is quite lethargic. She remains to have a low white count of 6.8. Hemoglobin stable at 10.9 and there is no evidence of any acute bleeding at this point. On 06/24/2017 the patient is being seen in follow-up. She is quite lethargic and weak related to chemotherapy toxicity. She is less short of breath compared to yesterday and she is on Lasix IV. Her chest x-ray showing bibasilar pulmonary consolidation which could be fluid versus aspiration pneumonia. She is on IV Zosyn. Tolerating her tube feeds. On a Cardizem drip. Communicating. No hemoptysis. Hemoglobin stable at 10.6. The rest of the electrodes are all within normal limits. Patient was seen today on follow-up on 06/25/2017, no further episodes of hemoptysis, less weakness, less lethargy is noted. Denies being short of breath , and she seems to be doing relatively well compared to how she felt all along. Chest x-ray is consistent with interstitial infiltrates or possibly more or less in appearance of congestive heart failure and ventral infiltrates. Patient also has small bilateral pleural effusions, and a right Mediport is noted. Labs were reviewed hemoglobin is stable at 10.3. Electrolytes are normal BUN is 24 creatinine is 0.40. Liver enzymes were noted to be a bit elevated. Reevaluated today on 06/26/2017, no further episodes of hemoptysis, patient seems to be experiencing intermittent episodes of cough and congestion. No chest pain, no fever, no chills, and no further episodes of hemoptysis. CBC was reviewed relatively normal. Hemoglobin is 10.4. WBC count is 8.0. Platelets are 89,000. Basic metabolic profile is relatively normal, renal profile is normal. Chest x-ray from yesterday showed findings of possible component of mild congestive heart failure and interstitial edema. Patient remains on Lasix 40 mg IV push every 12 hours. She is also on multiple cardiac meds for atrial fibrillation. And hypertension. IV fluid is cut down to KVO. Reevaluated today on 06/27/2017, patient had some issues of cough congestion and wheezing overnight, she was given Lasix, and today she was placed on Solu- Medrol for coughing and wheezing. Patient remains on bronchodilators, and she is now on 50% Ventimask. Chest x-ray showed cardiomegaly and some interstitial pattern with small bilateral effusions likely secondary to congestive heart failure, doubt lymphangitic spread of malignancy. At any rate patient is very marginal at best, and clearly had expressed wishes as not to be on life support machine 90s, and has DO NOT RESUSCITATE CODE STATUS. Labs were reviewed WBC count is 8 hemoglobin is 10.4. Basic metabolic profile is relatively normal. Reevaluated on 06/28/2017, significant improvement noted in the last 24 hours. Hardly any cough, no wheezing, no congestion, remains on Ventimask. Apparently the patient responded quite well to the use of Solu-Medrol however her sugars are running high and I will go ahead and cut down the dose a bit. WBC count 7.5 hemoglobin is 10.1 basic metabolic profile is normal renal profile is normal. Patient continues to have intermittent episodes of A. fib and heart rate sometimes seems to be poorly controlled. Patient was reevaluated today on 06/29/2017, continues to steadily improve, however her sugars are running high. Patient remains on steroids, may eventually cut down the dose once her pulmonary status improves even further. WBC count is 7.5 today hemoglobin is 10.1. Basic metabolic profile is normal. But sugars are running as high as 367. Patient was reevaluated today on 06/30/2017, physically about the same, no major changes noted over the last couple of days. Sugars remain high hence I cut down the Solu-Medrol to 40 mg IV push every 12 hours. Patient remains intermittently confused, restless, and she seems to have difficulty clearing her own secretions. She sounds congested, however she is unable to bring all that sputum sitting in her upper airways, patient may need to have some suctioning intermittently and somehow help her clear though secretions. Patient is to be reminded to cough and get the secretions out. Labs were reviewed, no major abnormalities except for low potassium of 3.4. BUN is 49, creatinine is 0.40. Reevaluated today on 07/01/2017, basically about the same, no major changes, her Solu-Medrol was decreased yesterday, patient has intermittent episodes of congestion mostly because she does not clear secretions well on her own. Patient is appropriate today, seems to answer questions, denies shortness of breath, denies any nausea vomiting abdominal pain. Objective - Vital Signs Vital signs: Vital Signs Temp 97.3 F L 07/01/17 04:00 Pulse 138 H 07/01/17 04:00 Resp 18 07/01/17 04:00 BP 142/95 07/01/17 04:00 Pulse Ox 93 L 07/01/17 08:39 Intake & Output 06/30/17 07/01/17 07/01/17 18:59 06:59 18:59 Intake Total 996.25 862.383 13.241 Output Total 2350 940 Balance -1353.75 -77.617 13.241 Weight 64 kg Intake: IV 100 Sodium Chloride 0.9% 1, 100 000 ml @ 10 mls/hr IV . Q24H JULIÁN Rx#:[id number] Intake, IV Titration 36.25 42.383 13.241 Amount Insulin Regular 100 unit 36.25 42.383 13.241 In Sodium Chloride 0.9% 100 ml @ Titrate IV .Q0M JULIÁN Rx#:[id number] Tube Feeding 960 720 Output: Urine 2350 940 Other: Voiding Method Indwelling Catheter Indwelling Catheter # Bowel Movements 1 - Exam Gen. appearance the patient has lost her hair to systemic chemotherapy. Comfortable, in no form of respiratory distress, remains on Ventimask. Head is atraumatic normocephalic and the patient has developed her loss due to systemic chemotherapy. Neck is supple. There is some fullness over the right submandibular area. No direct tenderness. No rebound tenderness. No guarding. There is skin changes related to radiation therapy over the right neck area. Lung sounds are diminished bilaterally. Rhonchi noted on forced expiratory maneuver, minimal crackles at the base. Heart sounds are irregular, positive S1-S2 and there is no significant murmurs appreciated. Abdominal exam revealed normal bowel sounds. The abdomen was soft, non-tender, and without masses, organomegaly, or appreciable enlargement of the abdominal aorta. .Examination of the extremities revealed easily palpable radial, femoral and pedal pulses. There was no cyanosis, clubbing or edema. Neurologically the patient is awake and alert and following commands. No focal neurological deficit. Skin examination is negative for any ulcers or wounds or cellulitis. Skeletal examination showed no evidence of any arthritis or joint deformities. - Labs CBC & Chem 7: 07/01/17 05:20 07/01/17 05:20 Labs: Abnormal Lab Results - Last 24 Hours (Table) 06/30/17 06/30/17 06/30/17 Range/Units 11:51 14:00 15:58 RBC (3.80-5.40) m/uL Hgb (11.4-16.0) gm/dL Hct (34.0-46.0) % MCV (80.0-100.0) fL MCHC (31.0-37.0) g/dL RDW (11.5-15.5) % Plt Count (150-450) k/uL Neutrophils # (1.3-7.7) k/uL Lymphocytes # (1.0-4.8) k/uL Potassium (3.5-5.1) mmol/L Chloride (98-107) mmol/L Carbon Dioxide (22-30) mmol/L BUN (7-17) mg/dL Creatinine (0.52-1.04) mg/dL Glucose (74-99) mg/dL POC Glucose (mg/dL) 217 H 203 H 217 H (75-99) mg/dL 06/30/17 06/30/17 06/30/17 Range/Units 18:01 20:09 22:29 RBC (3.80-5.40) m/uL Hgb (11.4-16.0) gm/dL Hct (34.0-46.0) % MCV (80.0-100.0) fL MCHC (31.0-37.0) g/dL RDW (11.5-15.5) % Plt Count (150-450) k/uL Neutrophils # (1.3-7.7) k/uL Lymphocytes # (1.0-4.8) k/uL Potassium (3.5-5.1) mmol/L Chloride (98-107) mmol/L Carbon Dioxide (22-30) mmol/L BUN (7-17) mg/dL Creatinine (0.52-1.04) mg/dL Glucose (74-99) mg/dL POC Glucose (mg/dL) 224 H 230 H 245 H (75-99) mg/dL 07/01/17 07/01/17 07/01/17 Range/Units 00:52 03:09 05:20 RBC 3.12 L (3.80-5.40) m/uL Hgb 10.3 L (11.4-16.0) gm/dL Hct 33.9 L (34.0-46.0) % MCV 108.6 H (80.0-100.0) fL MCHC 30.5 L (31.0-37.0) g/dL RDW 19.9 H (11.5-15.5) % Plt Count 108 L (150-450) k/uL Neutrophils # 8.7 H (1.3-7.7) k/uL Lymphocytes # 0.3 L (1.0-4.8) k/uL Potassium (3.5-5.1) mmol/L Chloride (98-107) mmol/L Carbon Dioxide (22-30) mmol/L BUN (7-17) mg/dL Creatinine (0.52-1.04) mg/dL Glucose (74-99) mg/dL POC Glucose (mg/dL) 245 H 214 H (75-99) mg/dL 07/01/17 07/01/17 07/01/17 Range/Units 05:20 06:04 07:59 RBC (3.80-5.40) m/uL Hgb (11.4-16.0) gm/dL Hct (34.0-46.0) % MCV (80.0-100.0) fL MCHC (31.0-37.0) g/dL RDW (11.5-15.5) % Plt Count (150-450) k/uL Neutrophils # (1.3-7.7) k/uL Lymphocytes # (1.0-4.8) k/uL Potassium 3.4 L (3.5-5.1) mmol/L Chloride 93 L (98-107) mmol/L Carbon Dioxide 39 H (22-30) mmol/L BUN 45 H (7-17) mg/dL Creatinine 0.40 L (0.52-1.04) mg/dL Glucose 228 H (74-99) mg/dL POC Glucose (mg/dL) 229 H 176 H (75-99) mg/dL 07/01/17 Range/Units 09:59 RBC (3.80-5.40) m/uL Hgb (11.4-16.0) gm/dL Hct (34.0-46.0) % MCV (80.0-100.0) fL MCHC (31.0-37.0) g/dL RDW (11.5-15.5) % Plt Count (150-450) k/uL Neutrophils # (1.3-7.7) k/uL Lymphocytes # (1.0-4.8) k/uL Potassium (3.5-5.1) mmol/L Chloride (98-107) mmol/L Carbon Dioxide (22-30) mmol/L BUN (7-17) mg/dL Creatinine (0.52-1.04) mg/dL Glucose (74-99) mg/dL POC Glucose (mg/dL) 212 H (75-99) mg/dL Assessment and Plan Plan: 1 hemoptysis. Resolved. On 06/22/2017 the patient's hemoptysis subsided and the patient is not coughing any further blood. No significant rest of the stress pH is on IV Zosyn for empiric antibiotic coverage regarding potential right lower lobe/right middle lobe aspiration pneumonia. No fever. No chills. Hemodynamically stable. On no anticoagulants. On 06/23/2017 the patient's hemoptysis has subsided and the patient is not having any active hemoptysis at this point. On 06/24/2017, the patient's hemoptysis has subsided. There is no signs of any active bleeding and hemoglobin is stable. On 06/25/2017, hemoptysis has completely subsided, patient seems to be less weak , more energetic, and less lethargic. On 06/26/2017, patient is feeling better overall, continues to have some pulmonary congestion, remains on bronchodilators and diuretics. On 06/27/2017, patient does not seem to be making significant improvement especially over the last 24 hours, she seems to be going downhill. Hence more Lasix was given, and she was given Solu-Medrol. Xanax dose was increased to 3 times daily. On 06/28/2017, patient seems to be responding well to Solu-Medrol, however sugars are running high and will cut down the dose of that. Otherwise continue present treatment plan. On 06/29/2017, doing better continues to improve, has no changes were made. Sugars are a bit high handled with insulin. On 06/30/2017, Solu-Medrol was decreased to 40 mg IV push every 12 hours, instructed the nurse to motivate her to cough and bring up her secretions, and to be suctioned as needed. 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 The patient is being treated with a combination of chemoradiation therapy. Received carboplatinum and Taxol last chemotherapy was around 3 weeks ago. Received radiation therapy 3 COPD 4 worsening shortness of breath with development increased interstitial changes bilaterally, hence more Lasix was given. 5 chronic atrial fibrillation with rapid ventricular response currently on a Cardizem drip for rate control. The patient is on no anticoagulants 6 coronary artery disease with previous coronary intervention and stenting, currently stable 7 diabetes mellitus 8 hypertension 9 hyperlipidemia 10 obstructive sleep apnea noncompliant to CPAP therapy 11 skin cancer that was been [id number] smoker 13 macular degeneration 14 minimal troponin leak 15 limited emphysematous changes in the right middle lobe and right lower lobe. Pneumonia pneumonia of an aspiration type needs to be considered. 16 inability to swallow and the patient has enteral feeding for nutritional support Recommendation: Continue diuretics, off antibiotics, continue aspiration precautions, continue bronchodilators and steroids, however the dose was cut down because of persistent hyperglycemia overall picture and prognosis seems to be guarded, patient remains DO NOT RESUSCITATE CODE STATUS. Time with Patient: Less than 30
--- NOTE | 2017-07-01 11:40 | PN ---
PROGRESS NOTE Mrs Jorgensen is a 72-year-old female with a history of atrial fibrillation. History of squamous cell carcinoma of the right tonsil, not anticoagulated because of GI bleeding. She is feeling reasonably well today. She is lying supine without any chest pain. She has no chest pain. No dizziness. No palpitation. No syncope. She has no nausea. She continues to be at this time on amiodarone 400 mg twice a day, Lipitor 20 mg daily, diltiazem 90 mg 3 times a day. Furosemide 40 mg IV q.8 hours. Methylprednisone. Metoprolol tartrate 100 mg twice a day. PHYSICAL EXAMINATION: Blood pressure 142/90 with a heart rate running in the 90s to 110. LUNGS: Clear. HEART: Irregular regular S1, S2. No S3. No rub. ABDOMEN: Soft. PEG tube in place. EXTREMITIES: No edema. LAB DATA: Lab data revealed BUN and creatinine 45 and 0.4, potassium 3.4, hemoglobin of 10.3. IMPRESSION: 1. Atrial fibrillation with episodes of rapid ventricular response, better overall. 2. History of bleeding. 3. History of squamous cell carcinoma of the tonsils. 4. History of coronary artery disease. 5. History of chronic obstructive lung disease. RECOMMENDATION: From the cardiac standpoint, I will continue present dose of beta kelly. We will follow her heart rate and depending on that, further adjustment will be made. I will cut down the dose of her diuretic to twice a day. Replace her potassium. We will check her magnesium. MMODL / IJN: [id number] /
[2017-07-01] MEDS: POTASSIUM CHLORIDE ER 20 MEQ TAB.ER PO SCH ×2 (12:20→13:14)
[2017-07-01 12:22] LABS: Glucose,Whole Blood 223 mg/dL (75-99)
[2017-07-01] MEDS: SODIUM CHLORIDE 0.9% 1,000 ML IV SCH (13:14)
[2017-07-01] MEDS: INSULIN REGULAR 100 UNIT in SODIUM CHLORIDE 0.9% 100 ML IV SCH (14:41)
[2017-07-01 14:54] LABS: Glucose,Whole Blood 208 mg/dL (75-99)
[2017-07-01 16:23] LABS: Glucose,Whole Blood 212 mg/dL (75-99)
[2017-07-01 18:15] LABS: Glucose,Whole Blood 230 mg/dL (75-99)
[2017-07-01 20:14] LABS: Glucose,Whole Blood 220 mg/dL (75-99)
[2017-07-01] MEDS: LATANOPROST 0.005% OPHTH DROPS 2.5 ML BTL RIGHT EYE SCH (20:51)
[2017-07-01] MEDS: ATORVASTATIN 20 MG TAB PEG/G-TUBE SCH (20:51)
[2017-07-01 22:43] LABS: Glucose,Whole Blood 260 mg/dL (75-99)
[2017-07-02 00:05] LABS: Glucose,Whole Blood 254 mg/dL (75-99)
[2017-07-02] MEDS: IPRATROPIUM-ALBUTEROL 3 ML NEB INHALATION SCH ×6 (00:33→20:11)
[2017-07-02 02:15] LABS: Glucose,Whole Blood 168 mg/dL (75-99)
[2017-07-02 04:17] LABS: Glucose,Whole Blood 169 mg/dL (75-99)
[2017-07-02 06:11] LABS: Glucose,Whole Blood 150 mg/dL (75-99)
[2017-07-02 06:13] LABS: Anisocytosis Slight; Basophils % (A) 0 %; CH 31.7; CHCM 29.6; Eosinophils % (A) 0 %; HCT 35.8 % (34.0-46.0); HDW 2.81; HGB 10.9 gm/dL (11.4-16.0); Hypochromasia Marked; Luc # (Auto) 0.09; Luc % (Auto) 1; Lymphocytes # (A) 0.5 k/uL (1.0-4.8); Lymphocytes % (A) 4 %; MCH 32.6 pg (25.0-35.0); MCHC 30.4 g/dL (31.0-37.0); MCV 107.5 fL (80.0-100.0); Monocytes # (A) 0.5 k/uL (0-1.0); Monocytes % (A) 4 %; Neutrophils # (A) 10.4 k/uL (1.3-7.7); Neutrophils % (A) 90 %; RBC 3.33 m/uL (3.80-5.40); WBC 11.5 k/uL (3.8-10.6); WBC (Perox) 12.02
[2017-07-02 06:27] LABS: Blood Urea Nitrogen 50 mg/dL (7-17); Calcium 9.3 mg/dL (8.4-10.2); Chloride 94 mmol/L (98-107); Glucose 158 mg/dL (74-99); Non-African American GFR(MDRD) >60 (>60 ml/min/1.73 sqM); Potassium 4.2 mmol/L (3.5-5.1); Sodium 143 mmol/L (137-145)
[2017-07-02 06:29] LABS: Macrocytosis Marked
[2017-07-02] MEDS: DOXYCYCLINE 50 MG CAP PO SCH ×2 (06:31→15:53)
[2017-07-02 06:33] LABS: Anion Gap 8 mmol/L
[2017-07-02 07:01] LABS: Carbon Dioxide 41 mmol/L (22-30)
[2017-07-02 09:07] LABS: Glucose,Whole Blood 185 mg/dL (75-99)
[2017-07-02] MEDS: BUDESONIDE 0.5 MG/2 ML NEBU INHALATION SCH ×2 (09:14→20:11)
[2017-07-02] MEDS: AMIODARONE 200 MG TAB PO SCH ×2 (09:50→22:12)
[2017-07-02] MEDS: MAGNESIUM OXIDE 400 MG TAB PEG/G-TUBE SCH ×2 (09:51→22:12)
[2017-07-02] MEDS: methylPREDNISolone SOD SUCCI 40 MG/ML 1 ML VIAL IV SCH (09:51)
[2017-07-02] MEDS: METOPROLOL TARTRATE 50 MG TAB PO SCH ×3 (09:51→22:12)
[2017-07-02] MEDS: FUROSEMIDE 10 MG/ML 4 ML VIAL IV SCH (09:51)
[2017-07-02] MEDS: DILTIAZEM ORAL 30 MG TAB PO SCH ×3 (09:51→22:13)
[2017-07-02 10:00] LABS: Glucose,Whole Blood 185 mg/dL (75-99)
[2017-07-02] MEDS: ALPRAZolam 0.25 MG TAB PEG/G-TUBE SCH ×3 (10:32→22:19)
--- NOTE | 2017-07-02 10:40 | XR ---
EXAMINATION TYPE: XR chest 1V DATE OF EXAM: 07/02/2017 COMPARISON: 06/29/2017 HISTORY: Shortness of breath FINDINGS: There are bilateral pleural effusions with cardiomegaly and bibasilar infiltrate. There is a diffuse interstitial pattern. Mediport device seen. No pneumothorax. Atherosclerotic change aorta. Diffuse o steopenia. IMPRESSION: 1. Correlate for mild CHF with bilateral effusion and infiltrate. Pneumonia not excluded.
[2017-07-02] MEDS: methylPREDNISolone SOD SUCCI 125 MG/2 ML VIAL IV SCH ×3 (11:10→23:12)
[2017-07-02 12:01] LABS: Glucose,Whole Blood 190 mg/dL (75-99)
--- NOTE | 2017-07-02 12:56 | P.PN ---
Subjective Principal diagnosis: hemoptysis Patient seen today in follow-up. She continues to respond to verbal cues, she does answer questions appropriately. Continues to deny nausea, palpitations, diarrhea or pain. She does feel weak and requires assistance for movement. Objective - Vital Signs Vital signs: Vital Signs Temp 97.8 F 07/02/17 11:08 Pulse 125 H 07/02/17 11:08 Resp 22 07/02/17 11:08 BP 138/96 07/02/17 11:08 Pulse Ox 98 07/02/17 11:08 Intake & Output 07/01/17 07/02/17 07/02/17 18:59 06:59 18:59 Intake Total 997.691 862.968 327.458 Output Total 1000 Balance -2.309 862.968 327.458 Weight 64.1 kg Intake: IV 100 Sodium Chloride 0.9% 1, 100 000 ml @ 10 mls/hr IV . Q24H JULIÁN Rx#:[id number] Intake, IV Titration 37.691 42.968 7.458 Amount Insulin Regular 100 unit 37.691 42.968 7.458 In Sodium Chloride 0.9% 100 ml @ Titrate IV .Q0M JULIÁN Rx#:[id number] Tube Feeding 960 720 320 Output: Urine 1000 Other: Voiding Method Indwelling Catheter Indwelling Catheter Indwelling Catheter # Voids 2 # Bowel Movements 2 1 - Constitutional General appearance: Present: average body habitus, cooperative, mild distress - EENT Eyes: Present: anicteric sclerae - Respiratory Respiratory: bilateral: wheezing - Cardiovascular Rhythm: regular Heart sounds: normal: S1, S2 - Peripheral edema leg Peripheral Edema: bilateral: None - Gastrointestinal General gastrointestinal: Present: normal bowel sounds, soft - Integumentary Integumentary: Present: pale - Musculoskeletal Musculoskeletal: Present: generalized weakness - Labs CBC & Chem 7: 07/02/17 05:21 07/02/17 05:21 Labs: Abnormal Lab Results - Last 24 Hours (Table) 07/01/17 07/01/17 07/01/17 Range/Units 14:40 16:17 18:12 WBC (3.8-10.6) k/uL RBC (3.80-5.40) m/uL Hgb (11.4-16.0) gm/dL MCV (80.0-100.0) fL MCHC (31.0-37.0) g/dL RDW (11.5-15.5) % Plt Count (150-450) k/uL Neutrophils # (1.3-7.7) k/uL Lymphocytes # (1.0-4.8) k/uL Chloride (98-107) mmol/L Carbon Dioxide (22-30) mmol/L BUN (7-17) mg/dL Creatinine (0.52-1.04) mg/dL Glucose (74-99) mg/dL POC Glucose (mg/dL) 208 H 212 H 230 H (75-99) mg/dL Magnesium (1.6-2.3) mg/dL 07/01/17 07/01/17 07/02/17 Range/Units 20:12 22:10 00:01 WBC (3.8-10.6) k/uL RBC (3.80-5.40) m/uL Hgb (11.4-16.0) gm/dL MCV (80.0-100.0) fL MCHC (31.0-37.0) g/dL RDW (11.5-15.5) % Plt Count (150-450) k/uL Neutrophils # (1.3-7.7) k/uL Lymphocytes # (1.0-4.8) k/uL Chloride (98-107) mmol/L Carbon Dioxide (22-30) mmol/L BUN (7-17) mg/dL Creatinine (0.52-1.04) mg/dL Glucose (74-99) mg/dL POC Glucose (mg/dL) 220 H 260 H 254 H (75-99) mg/dL Magnesium (1.6-2.3) mg/dL 07/02/17 07/02/17 07/02/17 Range/Units 02:12 04:14 05:21 WBC 11.5 H (3.8-10.6) k/uL RBC 3.33 L (3.80-5.40) m/uL Hgb 10.9 L (11.4-16.0) gm/dL MCV 107.5 H (80.0-100.0) fL MCHC 30.4 L (31.0-37.0) g/dL RDW 19.0 H (11.5-15.5) % Plt Count 124 L (150-450) k/uL Neutrophils # 10.4 H (1.3-7.7) k/uL Lymphocytes # 0.5 L (1.0-4.8) k/uL Chloride (98-107) mmol/L Carbon Dioxide (22-30) mmol/L BUN (7-17) mg/dL Creatinine (0.52-1.04) mg/dL Glucose (74-99) mg/dL POC Glucose (mg/dL) 168 H 169 H (75-99) mg/dL Magnesium (1.6-2.3) mg/dL 07/02/17 07/02/17 07/02/17 Range/Units 05:21 05:21 06:09 WBC (3.8-10.6) k/uL RBC (3.80-5.40) m/uL Hgb (11.4-16.0) gm/dL MCV (80.0-100.0) fL MCHC (31.0-37.0) g/dL RDW (11.5-15.5) % Plt Count (150-450) k/uL Neutrophils # (1.3-7.7) k/uL Lymphocytes # (1.0-4.8) k/uL Chloride 94 L (98-107) mmol/L Carbon Dioxide 41 H* (22-30) mmol/L BUN 50 H (7-17) mg/dL Creatinine 0.47 L (0.52-1.04) mg/dL Glucose 158 H (74-99) mg/dL POC Glucose (mg/dL) 150 H (75-99) mg/dL Magnesium 2.6 H (1.6-2.3) mg/dL 07/02/17 07/02/17 07/02/17 Range/Units 08:47 09:56 11:48 WBC (3.8-10.6) k/uL RBC (3.80-5.40) m/uL Hgb (11.4-16.0) gm/dL MCV (80.0-100.0) fL MCHC (31.0-37.0) g/dL RDW (11.5-15.5) % Plt Count (150-450) k/uL Neutrophils # (1.3-7.7) k/uL Lymphocytes # (1.0-4.8) k/uL Chloride (98-107) mmol/L Carbon Dioxide (22-30) mmol/L BUN (7-17) mg/dL Creatinine (0.52-1.04) mg/dL Glucose (74-99) mg/dL POC Glucose (mg/dL) 185 H 185 H 190 H (75-99) mg/dL Magnesium (1.6-2.3) mg/dL Assessment and Plan (1) Acute exacerbation of chronic obstructive airways disease Narrative/Plan: Breath sounds slightly improved. Continue Pulmonary management. Status: Acute (2) CHF (congestive heart failure) Narrative/Plan: Symptoms of congestive heart failure seems to be abating, continue Cardiology management Status: Acute (3) Hyperglycemia Narrative/Plan: CBG 150s to 250's, patient continues on insulin drip while steroids are being weaned. Status: Acute (4) Atrial fibrillation with RVR Narrative/Plan: Persistent despite multiple changes in medications. Dr. Ortiz did discuss the case with Cardiology. Plan is to continue to work on optimal medical management Status: Acute (5) Hemoptysis Status: Resolved (6) Anemia Status: Chronic (7) Squamous cell carcinoma of head and neck Narrative/Plan: Pt has completed chemo, radiation was not completed. No treatment plans at this time. Status: Chronic (8) Anemia associated with acute blood loss Status: Acute (9) Antineoplastic chemotherapy induced anemia Status: Acute (10) Chemotherapy-induced thrombocytopenia Status: Acute Plan: Case was discussed with family at bedside. Patient's admitting diagnosis of hemoptysis has resolved since admission. Patient unfortunately has experienced congestive heart failure and COPD exacerbation during this admission. Patient' s [id number] inquired about hospice. From the Oncology standpoint patient' s malignancy has been treated and at this time there is nothing to suggest progression of an incurable malignancy. Currently congestive heart failure and COPD are the medical conditions requiring treatment. We discussed overall stability though, lack of improvement in patient's condition. It was recommended for patient to continue medical management for now. We will continue to look for Pulmonary and Cardiology recommendations regarding COPD and CHF treatment and progress. All of daughter-in laws questions were answered to her satisfaction. Pt family states they are going to take her home, no rehab.
[2017-07-02 14:09] LABS: Glucose,Whole Blood 159 mg/dL (75-99)
[2017-07-02 14:19] VITALS: BMI 26.6
--- NOTE | 2017-07-02 15:52 | P.PN ---
Subjective Principal diagnosis: Emphasis, congestive heart failure, and atrial fibrillation Ms. Jorgensen is a very pleasant female pt of Dr. 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 She presented with oropharyngeal mass, seen by Dr. Chase and Dr. Cisneros, ultimately referred to Dr. Hess at [facility]. CT on 01/10/17 revealed 7.4 cm oropharyngeal mass, biopsy on 01/22/17 revealed moderately differentiated squamous cell carcinoma, she had PEG tube placed for nutritional support. She started neoadjuvant carbo and weekly taxol chemotherapy at [facility] with Oncologist Dr. Comer. After 1st she opted for treatment closer to home, she completed 4 cycles 05/17, she has had radiation treatments. Pt has had a cough for a few days, then last evening she cough up a copious amount of blood, a large clot, concern was a blood vessel had been eroded and pt was bleeding out so family brought her to ER. She had urgent nasopharyngeal laryngoscopy with Dr. Frazier who did not see any active bleeding, some old blood being coughed up, no gross tumors or friable mass were visualized. Pt continues to have cough, more congested sounding per family, pt denies fever , nausea, vomiting, chest pain, she does not feel her irrregular heart rate or a -fib, no abd pain, PEG is working well, no dysuria, hematuria, diarrhea, constipation, or bleeding, her feet have been swollen for a few days but they are better today, pt gets up with assistance to the bedside commode On 06/22/2017 the patient is being seen in follow-up. The patient is still still lethargic and quite weak. She is quite toxic from the systemic chemotherapy that was given to her last 3 weeks ago. She is not cough and blood and this has essentially subsided. She is on a Cardizem drip for rate control the rate of 5 mg an hour. She is on no anticoagulants. She is receiving enteral feeding for nutritional support through a PEG tube. She is also on IV Zosyn for a potential right lower lobe/right middle lobe pneumonia which can be of an aspiration type. No fever. No chills. No leukocytosis. No other complaints otherwise for now. She is resting comfortably in bed. On 06/23/2017 the patient is being seen for a follow-up. She is more short of breath compared to yesterday. She is having labored breathing. Minimal congested cough. She is unable to bring up any sputum. Very weak and lethargic and still suffering from toxicity of systemic chemotherapy. Chest x- ray was done and it showed development of bibasilar pulmonary ventilator and small effusions. As such, the patient was given a dose of Lasix 40 mg IV push. She started diuresing and 40 B also inserted. She is still on a Cardizem drip for rate control. She is on no anticoagulants. No active hemoptysis at this point. Still on IV Zosyn regarding possibility of bibasilar pneumonia. Condition is obviously worse compared to yesterday. The patient is quite lethargic. She remains to have a low white count of 6.8. Hemoglobin stable at 10.9 and there is no evidence of any acute bleeding at this point. On 06/24/2017 the patient is being seen in follow-up. She is quite lethargic and weak related to chemotherapy toxicity. She is less short of breath compared to yesterday and she is on Lasix IV. Her chest x-ray showing bibasilar pulmonary consolidation which could be fluid versus aspiration pneumonia. She is on IV Zosyn. Tolerating her tube feeds. On a Cardizem drip. Communicating. No hemoptysis. Hemoglobin stable at 10.6. The rest of the electrodes are all within normal limits. Patient was seen today on follow-up on 06/25/2017, no further episodes of hemoptysis, less weakness, less lethargy is noted. Denies being short of breath , and she seems to be doing relatively well compared to how she felt all along. Chest x-ray is consistent with interstitial infiltrates or possibly more or less in appearance of congestive heart failure and ventral infiltrates. Patient also has small bilateral pleural effusions, and a right Mediport is noted. Labs were reviewed hemoglobin is stable at 10.3. Electrolytes are normal BUN is 24 creatinine is 0.40. Liver enzymes were noted to be a bit elevated. Reevaluated today on 06/26/2017, no further episodes of hemoptysis, patient seems to be experiencing intermittent episodes of cough and congestion. No chest pain, no fever, no chills, and no further episodes of hemoptysis. CBC was reviewed relatively normal. Hemoglobin is 10.4. WBC count is 8.0. Platelets are 89,000. Basic metabolic profile is relatively normal, renal profile is normal. Chest x-ray from yesterday showed findings of possible component of mild congestive heart failure and interstitial edema. Patient remains on Lasix 40 mg IV push every 12 hours. She is also on multiple cardiac meds for atrial fibrillation. And hypertension. IV fluid is cut down to KVO. Reevaluated today on 06/27/2017, patient had some issues of cough congestion and wheezing overnight, she was given Lasix, and today she was placed on Solu- Medrol for coughing and wheezing. Patient remains on bronchodilators, and she is now on 50% Ventimask. Chest x-ray showed cardiomegaly and some interstitial pattern with small bilateral effusions likely secondary to congestive heart failure, doubt lymphangitic spread of malignancy. At any rate patient is very marginal at best, and clearly had expressed wishes as not to be on life support machine 90s, and has DO NOT RESUSCITATE CODE STATUS. Labs were reviewed WBC count is 8 hemoglobin is 10.4. Basic metabolic profile is relatively normal. Reevaluated on 06/28/2017, significant improvement noted in the last 24 hours. Hardly any cough, no wheezing, no congestion, remains on Ventimask. Apparently the patient responded quite well to the use of Solu-Medrol however her sugars are running high and I will go ahead and cut down the dose a bit. WBC count 7.5 hemoglobin is 10.1 basic metabolic profile is normal renal profile is normal. Patient continues to have intermittent episodes of A. fib and heart rate sometimes seems to be poorly controlled. Patient was reevaluated today on 06/29/2017, continues to steadily improve, however her sugars are running high. Patient remains on steroids, may eventually cut down the dose once her pulmonary status improves even further. WBC count is 7.5 today hemoglobin is 10.1. Basic metabolic profile is normal. But sugars are running as high as 367. Patient was reevaluated today on 06/30/2017, physically about the same, no major changes noted over the last couple of days. Sugars remain high hence I cut down the Solu-Medrol to 40 mg IV push every 12 hours. Patient remains intermittently confused, restless, and she seems to have difficulty clearing her own secretions. She sounds congested, however she is unable to bring all that sputum sitting in her upper airways, patient may need to have some suctioning intermittently and somehow help her clear though secretions. Patient is to be reminded to cough and get the secretions out. Labs were reviewed, no major abnormalities except for low potassium of 3.4. BUN is 49, creatinine is 0.40. Reevaluated today on 07/01/2017, basically about the same, no major changes, her Solu-Medrol was decreased yesterday, patient has intermittent episodes of congestion mostly because she does not clear secretions well on her own. Patient is appropriate today, seems to answer questions, denies shortness of breath, denies any nausea vomiting abdominal pain. On 07/02/2017 nursing staff is concerned about patient's worsening respiratory status, his chest congestion, weak loose nonproductive cough. Patient's oxygen saturation 84% on 15 L high flow nasal cannula. Patient is restless, trying to get up out of bed unassisted. Respirations are shallow and rapid. Patient is tachycardic. Lung sounds reveal coarse rhonchi throughout, no wheezes noted. Stat chest x-ray was ordered, Was placed on BiPAP ventilatory support with settings of 12 and 5, and FiO2 %. Chest x-ray was reviewed by Dr. Gongora, and actually slight improvement on the previous exam on 06/29/2017. Continues to show bilateral pleural effusions with cardiomegaly and bibasilar infiltrates, but no signs of pulmonary edema. IV steroids were increased back up to 60 mg every 6 hours. Patient is tolerating the BiPAP mask well,currently resting in bed with a pilot safety inspector at the bedside. Family was contacted to update on the patient's declining status. Objective - Vital Signs Vital signs: Vital Signs Temp 97.8 F 07/02/17 11:08 Pulse 125 H 07/02/17 12:00 Resp 22 07/02/17 12:00 BP 138/96 07/02/17 11:08 Pulse Ox 98 07/02/17 11:08 Intake & Output 07/01/17 07/02/17 07/02/17 18:59 06:59 18:59 Intake Total 997.691 862.968 657.166 Output Total 1000 750 Balance -2.309 862.968 -92.834 Weight 64.1 kg 64.1 kg Intake: IV 100 Sodium Chloride 0.9% 1, 100 000 ml @ 10 mls/hr IV . Q24H JULIÁN Rx#:[id number] Intake, IV Titration 37.691 42.968 17.166 Amount Insulin Regular 100 unit 37.691 42.968 17.166 In Sodium Chloride 0.9% 100 ml @ Titrate IV .Q0M JULIÁN Rx#:[id number] Tube Feeding 960 720 640 Output: Urine 1000 750 Other: Voiding Method Indwelling Catheter Indwelling Catheter Indwelling Catheter # Voids 2 # Bowel Movements 2 1 - Exam Exam Gen. appearance the patient has lost her hair to systemic chemotherapy. Comfortable, in no form of respiratory distress, remains on Ventimask. Head is atraumatic normocephalic and the patient has developed her loss due to systemic chemotherapy. Neck is supple. There is some fullness over the right submandibular area. No direct tenderness. No rebound tenderness. No guarding. There is skin changes related to radiation therapy over the right neck area. Lung sounds are diminished bilaterally. Rhonchi noted on forced expiratory maneuver, minimal crackles at the base. Patient is tachypneic. Heart sounds are irregular, positive S1-S2 and there is no significant murmurs appreciated. Abdominal exam revealed normal bowel sounds. The abdomen was soft, non-tender, and without masses, organomegaly, or appreciable enlargement of the abdominal aorta. Examination of the extremities revealed easily palpable radial, femoral and pedal pulses. There was no cyanosis, clubbing or edema. Neurologically the patient is awake and alert and following commands. No focal neurological deficit. Skin examination is negative for any ulcers or wounds or cellulitis. Skeletal examination showed no evidence of any arthritis or joint deformities. - Labs CBC & Chem 7: 07/02/17 05:21 07/02/17 05:21 Labs: Abnormal Lab Results - Last 24 Hours (Table) 07/01/17 07/01/17 07/01/17 Range/Units 16:17 18:12 20:12 WBC (3.8-10.6) k/uL RBC (3.80-5.40) m/uL Hgb (11.4-16.0) gm/dL MCV (80.0-100.0) fL MCHC (31.0-37.0) g/dL RDW (11.5-15.5) % Plt Count (150-450) k/uL Neutrophils # (1.3-7.7) k/uL Lymphocytes # (1.0-4.8) k/uL Chloride (98-107) mmol/L Carbon Dioxide (22-30) mmol/L BUN (7-17) mg/dL Creatinine (0.52-1.04) mg/dL Glucose (74-99) mg/dL POC Glucose (mg/dL) 212 H 230 H 220 H (75-99) mg/dL Magnesium (1.6-2.3) mg/dL 07/01/17 07/02/17 07/02/17 Range/Units 22:10 00:01 02:12 WBC (3.8-10.6) k/uL RBC (3.80-5.40) m/uL Hgb (11.4-16.0) gm/dL MCV (80.0-100.0) fL MCHC (31.0-37.0) g/dL RDW (11.5-15.5) % Plt Count (150-450) k/uL Neutrophils # (1.3-7.7) k/uL Lymphocytes # (1.0-4.8) k/uL Chloride (98-107) mmol/L Carbon Dioxide (22-30) mmol/L BUN (7-17) mg/dL Creatinine (0.52-1.04) mg/dL Glucose (74-99) mg/dL POC Glucose (mg/dL) 260 H 254 H 168 H (75-99) mg/dL Magnesium (1.6-2.3) mg/dL 07/02/17 07/02/17 07/02/17 Range/Units 04:14 05:21 05:21 WBC 11.5 H (3.8-10.6) k/uL RBC 3.33 L (3.80-5.40) m/uL Hgb 10.9 L (11.4-16.0) gm/dL MCV 107.5 H (80.0-100.0) fL MCHC 30.4 L (31.0-37.0) g/dL RDW 19.0 H (11.5-15.5) % Plt Count 124 L (150-450) k/uL Neutrophils # 10.4 H (1.3-7.7) k/uL Lymphocytes # 0.5 L (1.0-4.8) k/uL Chloride 94 L (98-107) mmol/L Carbon Dioxide 41 H* (22-30) mmol/L BUN 50 H (7-17) mg/dL Creatinine 0.47 L (0.52-1.04) mg/dL Glucose 158 H (74-99) mg/dL POC Glucose (mg/dL) 169 H (75-99) mg/dL Magnesium (1.6-2.3) mg/dL 07/02/17 07/02/17 07/02/17 Range/Units 05:21 06:09 08:47 WBC (3.8-10.6) k/uL RBC (3.80-5.40) m/uL Hgb (11.4-16.0) gm/dL MCV (80.0-100.0) fL MCHC (31.0-37.0) g/dL RDW (11.5-15.5) % Plt Count (150-450) k/uL Neutrophils # (1.3-7.7) k/uL Lymphocytes # (1.0-4.8) k/uL Chloride (98-107) mmol/L Carbon Dioxide (22-30) mmol/L BUN (7-17) mg/dL Creatinine (0.52-1.04) mg/dL Glucose (74-99) mg/dL POC Glucose (mg/dL) 150 H 185 H (75-99) mg/dL Magnesium 2.6 H (1.6-2.3) mg/dL 07/02/17 07/02/17 07/02/17 Range/Units 09:56 11:48 14:05 WBC (3.8-10.6) k/uL RBC (3.80-5.40) m/uL Hgb (11.4-16.0) gm/dL MCV (80.0-100.0) fL MCHC (31.0-37.0) g/dL RDW (11.5-15.5) % Plt Count (150-450) k/uL Neutrophils # (1.3-7.7) k/uL Lymphocytes # (1.0-4.8) k/uL Chloride (98-107) mmol/L Carbon Dioxide (22-30) mmol/L BUN (7-17) mg/dL Creatinine (0.52-1.04) mg/dL Glucose (74-99) mg/dL POC Glucose (mg/dL) 185 H 190 H 159 H (75-99) mg/dL Magnesium (1.6-2.3) mg/dL Assessment and Plan Plan: Plan: 1 hemoptysis. Resolved. On 06/22/2017 the patient's hemoptysis subsided and the patient is not coughing any further blood. No significant rest of the stress pH is on IV Zosyn for empiric antibiotic coverage regarding potential right lower lobe/right middle lobe aspiration pneumonia. No fever. No chills. Hemodynamically stable. On no anticoagulants. On 06/23/2017 the patient's hemoptysis has subsided and the patient is not having any active hemoptysis at this point. On 06/24/2017, the patient's hemoptysis has subsided. There is no signs of any active bleeding and hemoglobin is stable. On 06/25/2017, hemoptysis has completely subsided, patient seems to be less weak , more energetic, and less lethargic. On 06/26/2017, patient is feeling better overall, continues to have some pulmonary congestion, remains on bronchodilators and diuretics. On 06/27/2017, patient does not seem to be making significant improvement especially over the last 24 hours, she seems to be going downhill. Hence more Lasix was given, and she was given Solu-Medrol. Xanax dose was increased to 3 times daily. On 06/28/2017, patient seems to be responding well to Solu-Medrol, however sugars are running high and will cut down the dose of that. Otherwise continue present treatment plan. On 06/29/2017, doing better continues to improve, has no changes were made. Sugars are a bit high handled with insulin. On 06/30/2017, Solu-Medrol was decreased to 40 mg IV push every 12 hours, instructed the nurse to motivate her to cough and bring up her secretions, and to be suctioned as needed. 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 The patient is being treated with a combination of chemoradiation therapy. Received carboplatinum and Taxol last chemotherapy was around 3 weeks ago. Received radiation therapy 3 COPD 4 worsening shortness of breath with development increased interstitial changes bilaterally, hence more Lasix was given. 5 chronic atrial fibrillation with rapid ventricular response currently on a Cardizem drip for rate control. The patient is on no anticoagulants 6 coronary artery disease with previous coronary intervention and stenting, currently stable 7 diabetes mellitus 8 hypertension 9 hyperlipidemia 10 obstructive sleep apnea noncompliant to CPAP therapy 11 skin cancer that was been [id number] smoker 13 macular degeneration 14 minimal troponin leak 15 limited emphysematous changes in the right middle lobe and right lower lobe. Pneumonia pneumonia of an aspiration type needs to be considered. 16 inability to swallow and the patient has enteral feeding for nutritional support Recommendation: We'll stop the patient's lasix as she shows evidence of prerenal azotemia and contraction alkalosis, off antibiotics, BiPAP ventilatory support, and increase Solu-Medrol to 60 every 6 hours. Prognosis is poor and guarded, overall status seems to be declining. Patient remains DO NOT RESUSCITATE CODE STATUS, it was discussed with her to speak with her family members about the initiation of palliative care possibility. I performed a history & physical examination of the patient and discussed their management with my nurse practitioner, Kathy Yi. I reviewed the nurse practitioner's note and agree with the documented findings and plan of care. Time with Patient: Greater than 30
[2017-07-02] MEDS: SODIUM CHLORIDE 0.9% 1,000 ML IV SCH (15:53)
[2017-07-02 16:01] LABS: Glucose,Whole Blood 182 mg/dL (75-99)
--- NOTE | 2017-07-02 17:16 | P.PN ---
Subjective Principal diagnosis: Atrial fibrillation with RVR This is a pleasant 72-year-old female with history of atrial fibrillation, squamous cell carcinoma of the right tonsil and GI bleed. She is not anticoagulated due to GI bleeding. Patient remains in atrial fibrillation with somewhat uncontrolled heart rates currently on amiodarone 400 mg by mouth twice a day, diltiazem 90 mg by mouth 3 times a day and metoprolol tartrate 100 mg 2 times a day. She is not feeling well today. Her breathing has declined she is on a BiPAP. She has not had any chest discomfort, dizziness, palpitations or syncope. Objective - Vital Signs Vital signs: Vital Signs Temp 97.8 F 07/02/17 16:00 Pulse 115 H 07/02/17 16:00 Resp 24 07/02/17 16:00 BP 156/95 07/02/17 16:00 Pulse Ox 95 07/02/17 16:00 Intake & Output 07/01/17 07/02/17 07/02/17 18:59 06:59 18:59 Intake Total 997.691 862.968 980.899 Output Total 1000 750 Balance -2.309 862.968 230.899 Weight 64.1 kg 64.1 kg Intake: IV 100 Sodium Chloride 0.9% 1, 100 000 ml @ 10 mls/hr IV . Q24H JULIÁN Rx#:[id number] Intake, IV Titration 37.691 42.968 20.899 Amount Insulin Regular 100 unit 37.691 42.968 20.899 In Sodium Chloride 0.9% 100 ml @ Titrate IV .Q0M JULIÁN Rx#:[id number] Tube Feeding 960 720 960 Output: Urine 1000 750 Other: Voiding Method Indwelling Catheter Indwelling Catheter Indwelling Catheter # Voids 2 # Bowel Movements 2 1 - Exam PHYSICAL EXAMINATION: HEENT: Head is atraumatic, normocephalic. Pupils equal, round. Neck is supple. HEART EXAMINATION: Heart sounds irregularly irregular, S1 and S2 normal. No murmur or gallop heard. CHEST EXAMINATION: Lungs reveal coarse rhonchi throughout. No chest wall tenderness is noted on palpation or with deep breathing. ABDOMEN: Soft, nontender. Bowel sounds are heard. No organomegaly noted. PEG tube in place.. EXTREMITIES: No evidence of peripheral edema and no calf tenderness noted. . - Labs CBC & Chem 7: 07/02/17 05:21 07/02/17 05:21 Labs: Abnormal Lab Results - Last 24 Hours (Table) 07/01/17 07/01/17 07/01/17 Range/Units 18:12 20:12 22:10 WBC (3.8-10.6) k/uL RBC (3.80-5.40) m/uL Hgb (11.4-16.0) gm/dL MCV (80.0-100.0) fL MCHC (31.0-37.0) g/dL RDW (11.5-15.5) % Plt Count (150-450) k/uL Neutrophils # (1.3-7.7) k/uL Lymphocytes # (1.0-4.8) k/uL Chloride (98-107) mmol/L Carbon Dioxide (22-30) mmol/L BUN (7-17) mg/dL Creatinine (0.52-1.04) mg/dL Glucose (74-99) mg/dL POC Glucose (mg/dL) 230 H 220 H 260 H (75-99) mg/dL Magnesium (1.6-2.3) mg/dL 07/02/17 07/02/17 07/02/17 Range/Units 00:01 02:12 04:14 WBC (3.8-10.6) k/uL RBC (3.80-5.40) m/uL Hgb (11.4-16.0) gm/dL MCV (80.0-100.0) fL MCHC (31.0-37.0) g/dL RDW (11.5-15.5) % Plt Count (150-450) k/uL Neutrophils # (1.3-7.7) k/uL Lymphocytes # (1.0-4.8) k/uL Chloride (98-107) mmol/L Carbon Dioxide (22-30) mmol/L BUN (7-17) mg/dL Creatinine (0.52-1.04) mg/dL Glucose (74-99) mg/dL POC Glucose (mg/dL) 254 H 168 H 169 H (75-99) mg/dL Magnesium (1.6-2.3) mg/dL 07/02/17 07/02/17 07/02/17 Range/Units 05:21 05:21 05:21 WBC 11.5 H (3.8-10.6) k/uL RBC 3.33 L (3.80-5.40) m/uL Hgb 10.9 L (11.4-16.0) gm/dL MCV 107.5 H (80.0-100.0) fL MCHC 30.4 L (31.0-37.0) g/dL RDW 19.0 H (11.5-15.5) % Plt Count 124 L (150-450) k/uL Neutrophils # 10.4 H (1.3-7.7) k/uL Lymphocytes # 0.5 L (1.0-4.8) k/uL Chloride 94 L (98-107) mmol/L Carbon Dioxide 41 H* (22-30) mmol/L BUN 50 H (7-17) mg/dL Creatinine 0.47 L (0.52-1.04) mg/dL Glucose 158 H (74-99) mg/dL POC Glucose (mg/dL) (75-99) mg/dL Magnesium 2.6 H (1.6-2.3) mg/dL 07/02/17 07/02/17 07/02/17 Range/Units 06:09 08:47 09:56 WBC (3.8-10.6) k/uL RBC (3.80-5.40) m/uL Hgb (11.4-16.0) gm/dL MCV (80.0-100.0) fL MCHC (31.0-37.0) g/dL RDW (11.5-15.5) % Plt Count (150-450) k/uL Neutrophils # (1.3-7.7) k/uL Lymphocytes # (1.0-4.8) k/uL Chloride (98-107) mmol/L Carbon Dioxide (22-30) mmol/L BUN (7-17) mg/dL Creatinine (0.52-1.04) mg/dL Glucose (74-99) mg/dL POC Glucose (mg/dL) 150 H 185 H 185 H (75-99) mg/dL Magnesium (1.6-2.3) mg/dL 07/02/17 07/02/17 07/02/17 Range/Units 11:48 14:05 15:57 WBC (3.8-10.6) k/uL RBC (3.80-5.40) m/uL Hgb (11.4-16.0) gm/dL MCV (80.0-100.0) fL MCHC (31.0-37.0) g/dL RDW (11.5-15.5) % Plt Count (150-450) k/uL Neutrophils # (1.3-7.7) k/uL Lymphocytes # (1.0-4.8) k/uL Chloride (98-107) mmol/L Carbon Dioxide (22-30) mmol/L BUN (7-17) mg/dL Creatinine (0.52-1.04) mg/dL Glucose (74-99) mg/dL POC Glucose (mg/dL) 190 H 159 H 182 H (75-99) mg/dL Magnesium (1.6-2.3) mg/dL Assessment and Plan Plan: Assessment and plan #1 atrial fibrillation with continued episodes of rapid ventricular response #2 history of GI bleed #3 squamous cell carcinoma of the tonsils #4 history of CAD #5 history of COPD. From cardiology's perspective, we will increase her metoprolol to 100 mg by mouth 3 times a day. Continue amiodarone 400 mg by mouth twice a day and Cardizem 90 mg by mouth 3 times a day. We'll continue to follow the patient provide further recommendations accordingly. [employer]IMING OPERATOR note has been reviewed, I agree with a documented findings and plan of care. Patient was seen and examined.
[2017-07-02 18:32] LABS: Glucose,Whole Blood 199 mg/dL (75-99)
[2017-07-02 20:16] LABS: Glucose,Whole Blood 144 mg/dL (75-99)
[2017-07-02] MEDS: INSULIN REGULAR 100 UNIT in SODIUM CHLORIDE 0.9% 100 ML IV SCH (20:51)
[2017-07-02 21:20] LABS: Glucose,Whole Blood 179 mg/dL (75-99)
[2017-07-02] MEDS: ATORVASTATIN 20 MG TAB PEG/G-TUBE SCH (22:12)
[2017-07-02] MEDS: LATANOPROST 0.005% OPHTH DROPS 2.5 ML BTL RIGHT EYE SCH (22:12)
[2017-07-02 23:08] LABS: Glucose,Whole Blood 191 mg/dL (75-99)
[2017-07-03] MEDS: IPRATROPIUM-ALBUTEROL 3 ML NEB INHALATION SCH ×7 (00:41→23:59)
[2017-07-03 01:13] LABS: Glucose,Whole Blood 204 mg/dL (75-99)
[2017-07-03 03:08] LABS: Glucose,Whole Blood 194 mg/dL (75-99)
[2017-07-03 05:02] LABS: Glucose,Whole Blood 221 mg/dL (75-99)
[2017-07-03] MEDS: methylPREDNISolone SOD SUCCI 125 MG/2 ML VIAL IV SCH ×3 (06:00→18:00)
[2017-07-03] MEDS: DOXYCYCLINE 50 MG CAP PO SCH ×2 (06:02→21:10)
[2017-07-03 06:23] LABS: Blood Urea Nitrogen 52 mg/dL (7-17); Chloride 94 mmol/L (98-107); Glucose 214 mg/dL (74-99); Non-African American GFR(MDRD) >60 (>60 ml/min/1.73 sqM); Sodium 142 mmol/L (137-145)
[2017-07-03 06:30] LABS: Anion Gap 9 mmol/L; Carbon Dioxide 39 mmol/L (22-30)
[2017-07-03 07:09] LABS: Glucose,Whole Blood 201 mg/dL (75-99)
[2017-07-03] MEDS: BUDESONIDE 0.5 MG/2 ML NEBU INHALATION SCH ×2 (07:31→21:02)
[2017-07-03] MEDS: DILTIAZEM ORAL 30 MG TAB PO SCH ×3 (08:39→21:11)
[2017-07-03] MEDS: AMIODARONE 200 MG TAB PO SCH ×2 (08:39→21:10)
[2017-07-03] MEDS: METOPROLOL TARTRATE 50 MG TAB PO SCH ×3 (08:40→21:11)
[2017-07-03] MEDS: FUROSEMIDE 10 MG/ML 2 ML VIAL IV SCH (08:40)
[2017-07-03] MEDS: MAGNESIUM OXIDE 400 MG TAB PEG/G-TUBE SCH ×2 (08:40→21:10)
[2017-07-03] MEDS: ALPRAZolam 0.25 MG TAB PEG/G-TUBE SCH ×3 (08:45→21:15)
[2017-07-03 09:11] LABS: Glucose,Whole Blood 219 mg/dL (75-99)
[2017-07-03 11:18] LABS: Glucose,Whole Blood 258 mg/dL (75-99)
[2017-07-03 11:40] LABS: Glucose,Whole Blood 257 mg/dL (75-99)
--- NOTE | 2017-07-03 12:08 | P.PN ---
Subjective progress note dated 07/03/2017 Patient is seen today. Still has significant respiratory difficulty. Currently on BiPAP. The patient's chest x-ray from July 02 shows bilateral pleural effusions with cardiomegaly and bibasilar infiltrates with pulmonary edema. On the patient's overall situation is poor. In my opinion, the patient should be made a hospice patient. She doesn't look comfortable at all on the BiPAP. Overall status has declined. Does have a cough. Nonproductive. She is tachycardic. No fever or chills. Objective - Vital Signs Vital signs: Vital Signs Temp 97.6 F 07/03/17 08:00 Pulse 78 07/03/17 11:30 Resp 23 07/03/17 08:00 BP 137/83 07/03/17 08:00 Pulse Ox 90 L 07/03/17 08:00 Intake & Output 07/02/17 07/03/17 07/03/17 18:59 06:59 18:59 Intake Total 987.441 346.909 337.15 Output Total 750 500 Balance 237.441 346.909 -162.85 Weight 64.1 kg 67 kg Intake: Intake, IV Titration 27.441 26.909 17.15 Amount Insulin Regular 100 unit 27.441 26.909 17.15 In Sodium Chloride 0.9% 100 ml @ Titrate IV .Q0M [facility] Rx#:[id number] Tube Feeding 960 320 320 Output: Urine 750 500 Other: Voiding Method Indwelling Catheter Indwelling Catheter Indwelling Catheter # Voids 1 # Bowel Movements 1 - Exam Very somnolent and lethargic but she does arouse, appears to be both tachypnea and dyspneic. HEENT examinations unremarkable. BiPAP mask in place. Mucous membranes are dry. Neck supple. Full range of motion. No adenopathy. No neck vein distention. Cardiovascular examination reveals mild tachycardia. Heart rate about 103. S1- S2 normal. It's regular. No murmur noted. Lungs reveal crackles at the bases. Breath sounds are diminished. No expiratory wheezes are noted. No rhonchi are noted. Abdomen soft bowel sounds are heard. Extremities are intact. Mild edema. Skin without rash. Lots of areas of ecchymoses noted. Neurologic examination is difficult to perform. - Labs CBC & Chem 7: 07/02/17 05:21 07/03/17 05:19 Labs: Abnormal Lab Results - Last 24 Hours (Table) 07/02/17 07/02/17 07/02/17 Range/Units 11:48 14:05 15:57 Chloride (98-107) mmol/L Carbon Dioxide (22-30) mmol/L BUN (7-17) mg/dL Creatinine (0.52-1.04) mg/dL Glucose (74-99) mg/dL POC Glucose (mg/dL) 190 H 159 H 182 H (75-99) mg/dL 07/02/17 07/02/17 07/02/17 Range/Units 18:30 20:14 21:11 Chloride (98-107) mmol/L Carbon Dioxide (22-30) mmol/L BUN (7-17) mg/dL Creatinine (0.52-1.04) mg/dL Glucose (74-99) mg/dL POC Glucose (mg/dL) 199 H 144 H 179 H (75-99) mg/dL 07/02/17 07/03/17 07/03/17 Range/Units 23:07 01:00 03:05 Chloride (98-107) mmol/L Carbon Dioxide (22-30) mmol/L BUN (7-17) mg/dL Creatinine (0.52-1.04) mg/dL Glucose (74-99) mg/dL POC Glucose (mg/dL) 191 H 204 H 194 H (75-99) mg/dL 07/03/17 07/03/17 07/03/17 Range/Units 05:01 05:19 07:08 Chloride 94 L (98-107) mmol/L Carbon Dioxide 39 H (22-30) mmol/L BUN 52 H (7-17) mg/dL Creatinine 0.50 L (0.52-1.04) mg/dL Glucose 214 H (74-99) mg/dL POC Glucose (mg/dL) 221 H 201 H (75-99) mg/dL 07/03/17 07/03/17 07/03/17 Range/Units 09:08 11:06 11:38 Chloride (98-107) mmol/L Carbon Dioxide (22-30) mmol/L BUN (7-17) mg/dL Creatinine (0.52-1.04) mg/dL Glucose (74-99) mg/dL POC Glucose (mg/dL) 219 H 258 H 257 H (75-99) mg/dL Assessment and Plan (1) Acute exacerbation of chronic obstructive airways disease Status: Acute (2) Acute upper GI bleeding Status: Acute (3) Anemia associated with acute blood loss Status: Acute (4) Antineoplastic chemotherapy induced anemia Status: Acute (5) Atrial fibrillation with RVR Status: Acute (6) CHF (congestive heart failure) Status: Acute (7) Chemotherapy-induced thrombocytopenia Status: Acute (8) Hyperglycemia Status: Acute (9) Throat cancer Status: Acute (10) Hemoptysis Status: Resolved (11) CAD (coronary artery disease) Status: Acute (12) COPD exacerbation Status: Acute (13) HTN (hypertension) Status: Acute (14) Hyperlipemia Status: Acute (15) Respiratory distress Status: Acute (16) SOB (shortness of breath) Status: Acute (17) 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 The patient's Lasix was discontinued because of prerenal azotemia and contraction alkalosis. The patient continues on breathing treatments and steroids BiPAP. She is a no code. Would recommend palliative care consult or hospice consult. Overall prognosis is very poor. Time with Patient: Less than 30
[2017-07-03 13:21] LABS: Glucose,Whole Blood 185 mg/dL (75-99)
--- NOTE | 2017-07-03 13:54 | P.PN ---
Subjective Principal diagnosis: Atrial fibrillation with RVR This is a pleasant 72-year-old female with history of atrial fibrillation, squamous cell carcinoma of the right tonsil and GI bleed. She is not anticoagulated due to GI bleeding. Patient remains in atrial fibrillation with somewhat uncontrolled heart rates currently on amiodarone 400 mg by mouth twice a day, diltiazem 90 mg by mouth 3 times a day and metoprolol tartrate 100 mg 3 times a day. Her heart rate is better controlled. Her breathing has declined she is on a BiPAP. She is quite lethargic today. She remains on Bi- Pap. Objective - Vital Signs Vital signs: Vital Signs Temp 97.2 F L 07/03/17 12:00 Pulse 105 H 07/03/17 12:00 Resp 28 H 07/03/17 12:00 BP 122/73 07/03/17 12:00 Pulse Ox 95 07/03/17 12:00 Intake & Output 07/02/17 07/03/17 07/03/17 18:59 06:59 18:59 Intake Total 987.441 346.909 667.067 Output Total 750 500 Balance 237.441 346.909 167.067 Weight 64.1 kg 67 kg Intake: Intake, IV Titration 27.441 26.909 27.067 Amount Insulin Regular 100 unit 27.441 26.909 27.067 In Sodium Chloride 0.9% 100 ml @ Titrate IV .Q0M [facility] Rx#:[id number] Tube Feeding 960 320 640 Output: Urine 750 500 Other: Voiding Method Indwelling Catheter Indwelling Catheter Indwelling Catheter # Voids 1 # Bowel Movements 1 - Exam PHYSICAL EXAMINATION: HEENT: Head is atraumatic, normocephalic. Pupils equal, round. Neck is supple. HEART EXAMINATION: Heart sounds irregularly irregular, S1 and S2 normal. No murmur or gallop heard. CHEST EXAMINATION: Lungs reveal coarse dry crackles throughout. No chest wall tenderness is noted on palpation or with deep breathing. ABDOMEN: Soft. Bowel sounds are heard. No organomegaly noted. PEG tube in place.. EXTREMITIES: No evidence of peripheral edema and no calf tenderness noted. . - Labs CBC & Chem 7: 07/02/17 05:21 07/03/17 05:19 Labs: Abnormal Lab Results - Last 24 Hours (Table) 07/02/17 07/02/17 07/02/17 Range/Units 14:05 15:57 18:30 Chloride (98-107) mmol/L Carbon Dioxide (22-30) mmol/L BUN (7-17) mg/dL Creatinine (0.52-1.04) mg/dL Glucose (74-99) mg/dL POC Glucose (mg/dL) 159 H 182 H 199 H (75-99) mg/dL 07/02/17 07/02/17 07/02/17 Range/Units 20:14 21:11 23:07 Chloride (98-107) mmol/L Carbon Dioxide (22-30) mmol/L BUN (7-17) mg/dL Creatinine (0.52-1.04) mg/dL Glucose (74-99) mg/dL POC Glucose (mg/dL) 144 H 179 H 191 H (75-99) mg/dL 07/03/17 07/03/17 07/03/17 Range/Units 01:00 03:05 05:01 Chloride (98-107) mmol/L Carbon Dioxide (22-30) mmol/L BUN (7-17) mg/dL Creatinine (0.52-1.04) mg/dL Glucose (74-99) mg/dL POC Glucose (mg/dL) 204 H 194 H 221 H (75-99) mg/dL 07/03/17 07/03/17 07/03/17 Range/Units 05:19 07:08 09:08 Chloride 94 L (98-107) mmol/L Carbon Dioxide 39 H (22-30) mmol/L BUN 52 H (7-17) mg/dL Creatinine 0.50 L (0.52-1.04) mg/dL Glucose 214 H (74-99) mg/dL POC Glucose (mg/dL) 201 H 219 H (75-99) mg/dL 07/03/17 07/03/17 07/03/17 Range/Units 11:06 11:38 13:08 Chloride (98-107) mmol/L Carbon Dioxide (22-30) mmol/L BUN (7-17) mg/dL Creatinine (0.52-1.04) mg/dL Glucose (74-99) mg/dL POC Glucose (mg/dL) 258 H 257 H 185 H (75-99) mg/dL Assessment and Plan Plan: Assessment and plan #1 atrial fibrillation with relatively controlled rate #2 history of GI bleed #3 squamous cell carcinoma of the tonsils #4 history of CAD #5 history of COPD. From cardiology's perspective, the patient's prognosis is very poor. She is stable form a cardiac stand point. Continue current medications. There is no evidence of overt heart failure. We will continue to follow the patient and provide further recommendations accordingly. PENOLOGY PROFESSOR note has been reviewed, I agree with a documented findings and plan of care. Patient was seen and examined.
--- NOTE | 2017-07-03 14:42 | P.PN ---
Subjective Principal diagnosis: hemoptysis Patient seen today in follow-up. She is now on bipap, she is still responding to my questions, she denied nausea, hunger, need to go to the bathroom or pain, she denies c/o of NIGHAT at this time, she states being very tired. She is unable to move without assistance. Objective - Vital Signs Vital signs: Vital Signs Temp 97.2 F L 07/03/17 12:00 Pulse 105 H 07/03/17 12:00 Resp 28 H 07/03/17 12:00 BP 122/73 07/03/17 12:00 Pulse Ox 95 07/03/17 12:00 Intake & Output 07/02/17 07/03/17 07/03/17 18:59 06:59 18:59 Intake Total 987.441 346.909 657.15 Output Total 750 500 Balance 237.441 346.909 157.15 Weight 64.1 kg 67 kg Intake: Intake, IV Titration 27.441 26.909 17.15 Amount Insulin Regular 100 unit 27.441 26.909 17.15 In Sodium Chloride 0.9% 100 ml @ Titrate IV .Q0M [facility] Rx#:[id number] Tube Feeding 960 320 640 Output: Urine 750 500 Other: Voiding Method Indwelling Catheter Indwelling Catheter Indwelling Catheter # Voids 1 # Bowel Movements 1 - Constitutional General appearance: Present: average body habitus, cooperative, mild distress - Respiratory Respiratory: right: wheezing, bilateral: rales - Cardiovascular Rhythm: irregularly irregular Heart sounds: normal: S1, S2 Abnormal Heart Sounds: Present: systolic murmur - Peripheral edema foot Peripheral Edema: bilateral: Trace - Gastrointestinal General gastrointestinal: Present: normal bowel sounds, soft - Integumentary Integumentary: Present: pale - Musculoskeletal Musculoskeletal: Present: generalized weakness - Psychiatric Psychiatric Comment(s): Answers questions appropriately but unsure of underlying comprehension - Labs CBC & Chem 7: 07/02/17 05:21 07/03/17 05:19 Labs: Abnormal Lab Results - Last 24 Hours (Table) 07/02/17 07/02/17 07/02/17 Range/Units 14:05 15:57 18:30 Chloride (98-107) mmol/L Carbon Dioxide (22-30) mmol/L BUN (7-17) mg/dL Creatinine (0.52-1.04) mg/dL Glucose (74-99) mg/dL POC Glucose (mg/dL) 159 H 182 H 199 H (75-99) mg/dL 07/02/17 07/02/17 07/02/17 Range/Units 20:14 21:11 23:07 Chloride (98-107) mmol/L Carbon Dioxide (22-30) mmol/L BUN (7-17) mg/dL Creatinine (0.52-1.04) mg/dL Glucose (74-99) mg/dL POC Glucose (mg/dL) 144 H 179 H 191 H (75-99) mg/dL 07/03/17 07/03/17 07/03/17 Range/Units 01:00 03:05 05:01 Chloride (98-107) mmol/L Carbon Dioxide (22-30) mmol/L BUN (7-17) mg/dL Creatinine (0.52-1.04) mg/dL Glucose (74-99) mg/dL POC Glucose (mg/dL) 204 H 194 H 221 H (75-99) mg/dL 07/03/17 07/03/17 07/03/17 Range/Units 05:19 07:08 09:08 Chloride 94 L (98-107) mmol/L Carbon Dioxide 39 H (22-30) mmol/L BUN 52 H (7-17) mg/dL Creatinine 0.50 L (0.52-1.04) mg/dL Glucose 214 H (74-99) mg/dL POC Glucose (mg/dL) 201 H 219 H (75-99) mg/dL 07/03/17 07/03/17 Range/Units 11:06 11:38 Chloride (98-107) mmol/L Carbon Dioxide (22-30) mmol/L BUN (7-17) mg/dL Creatinine (0.52-1.04) mg/dL Glucose (74-99) mg/dL POC Glucose (mg/dL) 258 H 257 H (75-99) mg/dL Assessment and Plan (1) Acute exacerbation of chronic obstructive airways disease Status: Acute (2) CHF (congestive heart failure) Status: Acute (3) Hyperglycemia Status: Acute (4) Atrial fibrillation with RVR Status: Acute (5) Hemoptysis Status: Resolved (6) Anemia Status: Chronic (7) Squamous cell carcinoma of head and neck Status: Chronic (8) Anemia associated with acute blood loss Status: Acute (9) Antineoplastic chemotherapy induced anemia Status: Acute (10) Chemotherapy-induced thrombocytopenia Status: Acute Plan: Consulting Physicians notes reviewed. We will plan a family meeting for the AM and discuss hospice with the family. Pt Cardiopulmonary status continues to decline despite aggressive medical intervention. Pt is appropriately a no code so, we will discuss comfort only and get the family's opinion, further orders to follow.
[2017-07-03 15:08] LABS: Glucose,Whole Blood 147 mg/dL (75-99)
[2017-07-03] MEDS: SODIUM CHLORIDE 0.9% 1,000 ML IV SCH (15:14)
[2017-07-03 17:23] LABS: Glucose,Whole Blood 197 mg/dL (75-99)
[2017-07-03 19:19] LABS: Glucose,Whole Blood 208 mg/dL (75-99)
[2017-07-03 20:05] VITALS: RESP 18
[2017-07-03 21:02] LABS: Glucose,Whole Blood 199 mg/dL (75-99)
[2017-07-03] MEDS: LATANOPROST 0.005% OPHTH DROPS 2.5 ML BTL RIGHT EYE SCH (21:10)
[2017-07-03] MEDS: ATORVASTATIN 20 MG TAB PEG/G-TUBE SCH (21:10)
[2017-07-03 23:32] LABS: Glucose,Whole Blood 204 mg/dL (75-99)
[2017-07-04] MEDS: methylPREDNISolone SOD SUCCI 125 MG/2 ML VIAL IV SCH ×2 (00:07→07:00)
[2017-07-04 01:05] LABS: Glucose,Whole Blood 215 mg/dL (75-99)
[2017-07-04 03:13] LABS: Glucose,Whole Blood 199 mg/dL (75-99)
[2017-07-04] MEDS: INSULIN REGULAR 100 UNIT in SODIUM CHLORIDE 0.9% 100 ML IV SCH (03:32)
[2017-07-04] MEDS: IPRATROPIUM-ALBUTEROL 3 ML NEB INHALATION SCH ×3 (03:37→13:57)
[2017-07-04 05:10] LABS: Glucose,Whole Blood 221 mg/dL (75-99)
[2017-07-04] MEDS: DOXYCYCLINE 50 MG CAP PO SCH (07:00)
[2017-07-04 07:25] LABS: Glucose,Whole Blood 214 mg/dL (75-99)
[2017-07-04] MEDS: BUDESONIDE 0.5 MG/2 ML NEBU INHALATION SCH (08:00)
[2017-07-04] MEDS: DILTIAZEM ORAL 30 MG TAB PO SCH (08:12)
[2017-07-04] MEDS: METOPROLOL TARTRATE 50 MG TAB PO SCH (08:13)
[2017-07-04] MEDS: MAGNESIUM OXIDE 400 MG TAB PEG/G-TUBE SCH (08:13)
[2017-07-04] MEDS: AMIODARONE 200 MG TAB PO SCH (08:13)
[2017-07-04] MEDS: FUROSEMIDE 10 MG/ML 2 ML VIAL IV SCH (08:14)
[2017-07-04] MEDS: ALPRAZolam 0.25 MG TAB PEG/G-TUBE SCH (08:23)
[2017-07-04 08:43] VITALS: TEMP 97
[2017-07-04 09:30] LABS: Glucose,Whole Blood 232 mg/dL (75-99)
[2017-07-04 12:06] LABS: Glucose,Whole Blood 224 mg/dL (75-99)
[2017-07-04 12:42] VITALS: BP 136/84; PULSE 130
--- NOTE | 2017-07-04 13:08 | P.PN ---
Subjective progress note dated 07/03/2017 Patient is seen today. Still has significant respiratory difficulty. Currently on BiPAP. The patient's chest x-ray from July 02 shows bilateral pleural effusions with cardiomegaly and bibasilar infiltrates with pulmonary edema. On the patient's overall situation is poor. In my opinion, the patient should be made a hospice patient. She doesn't look comfortable at all on the BiPAP. Overall status has declined. Does have a cough. Nonproductive. She is tachycardic. No fever or chills. Progress note dated 07/04/2017 72-year-old female with a history ofCOPD exacerbation, acute upper GI bleed anemia atrial fibrillation heart failure chemotherapy-induced thrombocytopenia hyperglycemia throat cancer hemoptysis CADhypertension hyperlipidemia dyspnea and squamous cell carcinoma of the head and neck. The patient apparently is going to be discharged home today. Currently has been on BiPAP for the last couple of days. She apparently has become more will become a hospice patient. She is currently a no code patient. I did ask the respiratory therapist attempted her on something other than BiPAP. Doubt possibly could include either nasals cannula, simple mask, Venturi mask, and partial rebreather a nonrebreather mask or high flow oxygen. She does have a CPAP device at home and does have oxygen at home. Overall prognosis is very poor. Objective - Vital Signs Vital signs: Vital Signs Temp 97 F L 07/04/17 08:00 Pulse 130 H 07/04/17 12:00 Resp 18 07/04/17 12:00 BP 136/84 07/04/17 12:00 Pulse Ox 92 L 07/04/17 12:00 Intake & Output 07/03/17 07/04/17 07/04/17 18:59 06:59 18:59 Intake Total 995.275 993.542 3.95 Output Total 1500 500 Balance -504.725 493.542 3.95 Weight 67 kg Intake: Intake, IV Titration 35.275 33.542 3.95 Amount Insulin Regular 100 unit 35.275 33.542 3.95 In Sodium Chloride 0.9% 100 ml @ Titrate IV .Q0M [facility] Rx#:[id number] Tube Feeding 960 960 Output: Urine 1500 500 Other: Voiding Method Indwelling Catheter Indwelling Catheter Indwelling Catheter # Voids 1 # Bowel Movements 1 - Exam Very somnolent and lethargic but she does arouse, appears to be both tachypnea and dyspneic. HEENT examinations unremarkable. BiPAP mask in place. Mucous membranes are dry. Neck supple. Full range of motion. No adenopathy. No neck vein distention. Cardiovascular examination reveals mild tachycardia. Heart rate about 103. S1- S2 normal. It's regular. No murmur noted. Lungs reveal crackles at the bases. Breath sounds are diminished. No expiratory wheezes are noted. No rhonchi are noted. Abdomen soft bowel sounds are heard. Extremities are intact. Mild edema. Skin without rash. Lots of areas of ecchymoses noted. Neurologic examination is difficult to perform. - Labs CBC & Chem 7: 07/02/17 05:21 07/03/17 05:19 Labs: Abnormal Lab Results - Last 24 Hours (Table) 07/03/17 07/03/17 07/03/17 Range/Units 13:08 15:05 17:11 POC Glucose (mg/dL) 185 H 147 H 197 H (75-99) mg/dL 07/03/17 07/03/17 07/03/17 Range/Units 19:18 21:01 23:30 POC Glucose (mg/dL) 208 H 199 H 204 H (75-99) mg/dL 07/04/17 07/04/17 07/04/17 Range/Units 01:03 03:11 05:08 POC Glucose (mg/dL) 215 H 199 H 221 H (75-99) mg/dL 07/04/17 07/04/17 07/04/17 Range/Units 07:00 09:16 11:14 POC Glucose (mg/dL) 214 H 232 H 224 H (75-99) mg/dL Assessment and Plan (1) Acute exacerbation of chronic obstructive airways disease Status: Acute (2) Acute upper GI bleeding Status: Acute (3) Anemia associated with acute blood loss Status: Acute (4) Antineoplastic chemotherapy induced anemia Status: Acute (5) Atrial fibrillation with RVR Status: Acute (6) CHF (congestive heart failure) Status: Acute (7) Chemotherapy-induced thrombocytopenia Status: Acute (8) Hyperglycemia Status: Acute (9) Throat cancer Status: Acute (10) Hemoptysis Status: Resolved (11) CAD (coronary artery disease) Status: Acute (12) COPD exacerbation Status: Acute (13) HTN (hypertension) Status: Acute (14) Hyperlipemia Status: Acute (15) Respiratory distress Status: Acute (16) SOB (shortness of breath) Status: Acute (17) 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 The patient's Lasix was discontinued because of prerenal azotemia and contraction alkalosis. The patient continues on breathing treatments and steroids BiPAP. She is a no code. Would recommend palliative care consult or hospice consult. Overall prognosis is very poor. plan dated 07/04/2017 The patient will be discharged probably today. Apparently the family wants the patient at home. Overall prognosis remains poor. Labs x-rays a medications are all reviewed. As we did yesterday, we would certainly recommend a palliative care consult for hospice consult. The family may have some unrealistic expectations. Time with Patient: Less than 30
--- NOTE | 2017-07-04 15:01 | CDI ---
In responding to this query, please exercise your independent professional judgment. The [facility] Coding Staff and Clinical Documentation Specialists appreciate your assistance in clarifying documentation, maintaining compliance with coding guidelines, accurately documenting patients condition and capturing severity of illness. The fact that a question is asked does not imply that any particular answer is desired or expected. Communication forms are a method of clarifying documentation and are not made part of the Legal Health Record. Thank you in advance for your clarification. Last Revision, November 2015 Ray Taveras [address] [place] [address] Documentation Clarification Form Date: 07/04/2017 2:41:00 PM From: Julieta Richard RN, CCDS Admit Date: 06/20/2017 2:54:00 PM Patient Name: Darleen Jorgensen Visit Number: [id number] Dr. 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 Patient is restless, trying to get up out of bed unassisted. Respirations are shallow and rapid. Patient is tachycardic. Lung sounds reveal coarse rhonchi throughout, no wheezes noted. Stat chest x-ray was ordered, Was placed on BiPAP ventilatory support with settings of 12 and 5, and FiO2 %." Treatment: Breathing TX: Duoneb Q4 hrs and PRN, Pulmicort INH BID Continuous Pulse ox: Per unit protocol BiPap: 12/5 100% FIO2 O2: 2l NC increased to 4L NC, Increased to BiPAP, currently 15L Hi-Flow nasal cannula In your professional opinion, can you please clarify if these findings signify one of the following conditions? Acuity: o Acute o Chronic o Acute on Chronic Respiratory Status: o Respiratory failure with hypercapnia o Respiratory failure with hypoxia o Other Diagnosis, please specify o Unable to determine Please document in an addendum to your progress notes and discharge summary in order to capture severity of illness and risk of mortality. Include clinical findings that support your diagnosis. FYI: Press F11 to launch patient chart. CLAUDIO
--- NOTE | 2017-07-04 15:12 | CDI ---
In responding to this query, please exercise your independent professional judgment. The [facility] Coding Staff and Clinical Documentation Specialists appreciate your assistance in clarifying documentation, maintaining compliance with coding guidelines, accurately documenting patients condition and capturing severity of illness. The fact that a question is asked does not imply that any particular answer is desired or expected. Communication forms are a method of clarifying documentation and are not made part of the Legal Health Record. Thank you in advance for your clarification. Last Revision, November 2016 Ray Taveras [address] [place] [address] Documentation Clarification Form Date: 06/26/2017 4:14:00 PM From: Julieta Richard RN, CCDS Admit Date: 06/20/2017 2:54:00 PM Patient Name: Darleen Jorgensen Visit Number: [id number] Dr. Jamir Marks CHF is documented in the progress notes and requires further specificity. History/Risk Factors: Head and neck Ca receiving radiation with hemoptysis, CHF, Atrial Fib, CAD, COPD Clinical Indicators: 06/25 Cardiology Progress Note: She is in A. fib with RVR along with congestive heart failure." VS/Pulse OX: Temp 97.6, HR 122-175, B/P 133/62, RR 14-26, Spo2 94% 2l NC BNP: 1160 05/02 Echocardiogram Results: EF 45-50%, LA severely dilated, moderate pulmonary HTN 07/02 Chest X Ray: correlate for mild CHF with bilateral effusion and infiltrate Treatment: Lasix 40 mg IVP Q 12 hrs Consults: Cardiology In your professional opinion, can you please clarify the acuity and type of CHF if known? Systolic Heart Failure: Acute Chronic Acute on Chronic Diastolic Heart Failure: Acute Chronic Acute on Chronic Systolic & Diastolic Heart Failure: Acute Chronic Acute on Chronic Unable to determine Other, please specify Please document in an addendum to your progress notes and discharge summary in order to capture severity of illness and risk of mortality. Include clinical findings that support your diagnosis. FYI: Press F11 to launch patient chart. CLAUDIO
--- NOTE | 2017-07-04 16:32 | P.DS ---
Providers Date of admission: 06/20/17 14:54 Expected date of discharge: 07/04/17 Attending physician: Rishi Harper Consults: 06/20/17 14:24 Consult Physician Routine Consulting Provider: Kun Frazier Consult Reason/Comments: throat cancer with bleeding Do you want consulting provider notified?: Yes 06/20/17 20:19 Consult Physician Routine Consulting Provider: Eze Bustamante Consult Reason/Comments: hemoptysis, SOB,Hx of throat ca, scope shows old blood from lungs with coug Do you want consulting provider notified?: Yes, Notify in am 06/20/17 23:06 Consult Physician Routine Consulting Provider: Fatimah Badillo Consult Reason/Comments: afib RVR Do you want consulting provider notified?: Yes, Notify in am 06/21/17 16:46 Consult Physician Routine Consulting Provider: Isaias Quezada Consult Reason/Comments: evaluation for continued radiation Do you want consulting provider notified?: Yes, Notify in am Primary care physician: Stated None - Discharge Diagnosis(es) (1) Acute exacerbation of chronic obstructive airways disease Status: Acute Priority: High (2) CHF (congestive heart failure) Status: Acute Priority: High (3) Hyperglycemia Status: Acute Priority: High (4) Atrial fibrillation with RVR Status: Acute Priority: High (5) Hemoptysis Status: Resolved Priority: High (6) Anemia Status: Chronic Priority: Medium (7) Squamous cell carcinoma of head and neck Status: Chronic Priority: Medium (8) Anemia associated with acute blood loss Status: Acute Priority: Low (9) Antineoplastic chemotherapy induced anemia Status: Acute Priority: Low (10) Chemotherapy-induced thrombocytopenia Status: Acute Priority: Medium Hospital Course: Pt admitted initially with hemoptysis, concern was for beak down of tissue from squamous cell head/neck malignancy but fortunately the bleeding stopped. Pt as felt to have possibly aspirated some of the blood and she was treated for aspiration pneumonia. She was treated for a-fib with RVR, she experienced COPD and CHF exacerbation. Pt was medically managed and was thought to be stabilizing but her respiratory status declined rather rapidly. She has been on bi-pap to maintain O2 saturation in the low 90's, pt is more confused, less responsive. Family wants to take pt home with hospice care. Hospice consulted , comfort Rx written. Patient Condition at Discharge: Poor Plan - Discharge Summary New Discharge Prescriptions: New Atropine Sulfate/0.9 %Sod Chlr [Atropine 0.01%-Ns Eye Drops] 1 drop PO Q2H PRN #1 bottle PRN Reason: Secretions LORazepam [Ativan] 1 mg PO Q4H PRN #30 tablet PRN Reason: Anxiety MORPHINE ORAL SOLN 20mg/mL [Roxanol Oral Soln Conc 20MG/ML] 5 mg PO Q4H PRN # 60 ml PRN Reason: Pain Discontinued ALPRAZolam [Xanax] 0.25 mg PEG/G-TUBE DAILY PRN PRN Reason: Anxiety No Action Diltiazem Oral [Cardizem Oral] 30 mg PEG/G-TUBE BID Atorvastatin [Lipitor] 20 mg PEG/G-TUBE HS Aspirin 325 mg PEG/G-TUBE DAILY Metoprolol Tartrate 25 mg PEG/G-TUBE BID fentaNYL 25MCG/HR PATCH [Duragesic 25MCG/HR] 1 patch TRANSDERM Q72H Ipratropium-Albuterol Nebulize [Duoneb 0.5 mg-3 mg/3 ml Soln] 3 ml INHALATION RT-Q4H Magnesium Oxide [Mag-Ox] 400 mg PEG/G-TUBE BID Budesonide [Pulmicort] 0.5 mg INHALATION RT-BID Travoprost [Travatan Z 0.004%] 1 drop RIGHT EYE HS Discharge Medication List Aspirin 325 mg PEG/G-TUBE DAILY 04/27/17 [History] Atorvastatin [Lipitor] 20 mg PEG/G-TUBE HS 04/27/17 [History] Diltiazem Oral [Cardizem Oral] 30 mg PEG/G-TUBE BID 04/27/17 [History] Metoprolol Tartrate 25 mg PEG/G-TUBE BID 05/01/17 [History] Budesonide [Pulmicort] 0.5 mg INHALATION RT-BID 06/20/17 [History] Ipratropium-Albuterol Nebulize [Duoneb 0.5 mg-3 mg/3 ml Soln] 3 ml INHALATION RT -Q4H 06/20/17 [History] Magnesium Oxide [Mag-Ox] 400 mg PEG/G-TUBE BID 06/20/17 [History] Travoprost [Travatan Z 0.004%] 1 drop RIGHT EYE HS 06/20/17 [History] fentaNYL 25MCG/HR PATCH [Duragesic 25MCG/HR] 1 patch TRANSDERM Q72H 06/20/17 [ History] Atropine Sulfate/0.9 %Sod Chlr [Atropine 0.01%-Ns Eye Drops] 1 drop PO Q2H PRN # 1 bottle 07/04/17 [Rx] LORazepam [Ativan] 1 mg PO Q4H PRN #30 tablet 07/04/17 [Rx] MORPHINE ORAL SOLN 20mg/mL [Roxanol Oral Soln Conc 20MG/ML] 5 mg PO Q4H PRN #60 ml 07/04/17 [Rx] Follow up Appointment(s)/Referral(s): [facility], [NON-STAFF] - As Needed None,Stated [Primary Care Provider] - 1-2 days Activity/Diet/Wound Care/Special Instructions: Pt home with family and hospice care. Rx give to hospice nurse Discharge Disposition: HOME WITH HOSPICE
== END 2017-07-04 14:46 | disposition hospice, home (50) | DRG 146 ==
LOC: EC 12:17 → 6SEL 14:54
PROVIDERS: ADMIT Internal Medicine Hematology & Oncology; ATTEND Internal Medicine Hematology & Oncology
PROC: 0CJS8ZZ Inspection of Larynx, Via Natural or Artificial Opening Endoscopic (ICD-10-PCS; principal; 2017-06-20)
DX: C09.9 Malignant neoplasm of tonsil, unspecified (principal); J69.0 Pneumonitis due to inhalation of food and vomit; J96.21 Acute and chronic respiratory failure with hypoxia; I11.0 Hypertensive heart disease with heart failure; E11.65 Type 2 diabetes mellitus with hyperglycemia; D69.59 Other secondary thrombocytopenia; D62 Acute posthemorrhagic anemia; I50.9 Heart failure, unspecified; J96.22 Acute and chronic respiratory failure with hypercapnia; I48.1 Persistent atrial fibrillation; J44.1 Chronic obstructive pulmonary disease with (acute) exacerbation; J98.11 Atelectasis; D64.81 Anemia due to antineoplastic chemotherapy; Z93.1 Gastrostomy status; I08.3 Combined rheumatic disorders of mitral, aortic and tricuspid valves; R13.10 Dysphagia, unspecified; E78.5 Hyperlipidemia, unspecified; I25.2 Old myocardial infarction; K21.9 Gastro-esophageal reflux disease without esophagitis; I25.10 Atherosclerotic heart disease of native coronary artery without angina pectoris; G47.33 Obstructive sleep apnea (adult) (pediatric); H35.30 Unspecified macular degeneration; Z85.828 Personal history of other malignant neoplasm of skin; Z66 Do not resuscitate; Z51.5 Encounter for palliative care; T45.1X5A Adverse effect of antineoplastic and immunosuppressive drugs, initial encounter; T38.0X5A Adverse effect of glucocorticoids and synthetic analogues, initial encounter; F41.9 Anxiety disorder, unspecified; Z99.81 Dependence on supplemental oxygen; Z79.51 Long term (current) use of inhaled steroids; Z79.82 Long term (current) use of aspirin; Z79.899 Other long term (current) drug therapy; Z86.14 Personal history of Methicillin resistant Staphylococcus aureus infection; Z91.19 Patient's noncompliance with other medical treatment and regimen; Z87.891 Personal history of nicotine dependence; Z92.3 Personal history of irradiation; Z90.710 Acquired absence of both cervix and uterus; Z92.21 Personal history of antineoplastic chemotherapy; Z95.5 Presence of coronary angioplasty implant and graft; Z88.1 Allergy status to other antibiotic agents; Z88.8 Allergy status to other drugs, medicaments and biological substances; Z91.018 Allergy to other foods
CPT/HCPCS: 36415; 71010; 71020; 71275; 77386; 80048; 80053; 82550; 82553; 83735; 83880; 84132; 84443; 84484; 85025; 85027; 85610; 85730; 86850; 86900; 86901; 93005; 94640; 94660; 94760; 96361; 96365; 96366; 99285